=== PATIENT | male | born 1945 | race Caucasian/White ===

== ENCOUNTER 2018-02-12 15:02 | Emergency (ER) | payer MEDICARE, OTHER ==
[~2018-02-12] VITALS: Ht 185.4 cm; Wt 106.6 kg
--- OUTSIDE RECORDS SUMMARY | 2018-02-12 15:08 | XMS REPORT ---
Author Author RICHY LAWRENCE Organization [facility] Address [address] [place] [address] Care Team Providers Care Weaving Machine Operator Name Role Phone RICHY LAWRENCE Unavailable PROBLEMS Type Condition ICD9-CM Code [id number] Code Onset Dates Condition Status SNOMED Code Problem Gout, unspecified 274.9 Active 99216258 Problem Essential hypertension, benign 401.1 Active 2023357 ALLERGIES No Known Allergies ENCOUNTERS Encounter Location Date Diagnosis [facility] [address] [id number] Mar, [facility] [address] [id number] Dec, Periodontitis K05.30 and Oral health maintenance status requiring routine preventive dental care K08.9 [facility] [address] [id number] Dec, Dental examination Z01.20 [facility] [address] [id number] Sep, Dental examination Z01.20 [facility] [address] [id number] Aug, Dental examination Z01.20 [facility] [address] [id number] July, Dental examination Z01.20 [facility] [address] [address] July, [facility] [address] [id number] Apr, Encounter for dental examination Z01.20 [facility] [address] [id number] Dec, Encounter for dental examination Z01.20 [facility] [address] [id number] [id number] Aug, Encounter for dental examination Z01.20 [facility] [address] [id number][place] [id number] Jun, Dental caries K02.9 [facility] [address] [id number][place] [id number] May, Encounter for dental examination Z01.20 [facility] [id number] [place] [address] [id number] Jan, Encounter for dental examination Z01.20 [facility] [address] [id number] [place] [address] [id number] Oct, Encounter for dental examination Z01.20 [facility] [address] [id number][place] [id number] Jun, Encounter for dental examination and cleaning without abnormal findings Z01.20 [facility] [address] [id number][place] [id number] Mar, Dental examination Z01.20 [facility] [id number] [place] [id number] Feb, Encounter for dental examination Z01.20 [facility] [address] [id number][place] [id number] Sep, Dental examination V72.2 [facility] [address] [id number], [place] [address] Jun, [facility] [address] [id number] [place] [address] Jun, [facility] [id number] [place] [phone] Mar, [facility] [address] [id number] [place] [address] 2546 13 Feb, 2012 [facility] [id number] [place] [address] Feb, [facility] [address] [facility] [id number], [place] [address] Dec, [facility] [address] [facility] [id number], [place] [address] Dec, [facility] [address] [id number], [place] [address] Dec, [facility] [id number] [address] 28 Nov, 2011 [facility] [address] [id number], [place] [address] 17 Nov, 2011 [facility] [id number] [address] 14 Nov, 2011 [facility] [address] [id number], [place] [address] Nov, IMMUNIZATIONS No Known Immunizations SOCIAL HISTORY Never Assessed REASON FOR VISIT 4 MO RECALL PLAN OF CARE Activity Details Follow Up 4 Months Reason:Perio Maint VITAL SIGNS Height 72 in 2017-12-26 Blood pressure systolic 123 mmHg 2017-12-26 Blood pressure diastolic 87 mmHg 2017-12-26 MEDICATIONS Medication Instructions Dosage Frequency Start Date End Date Duration Status Metformin & Diet Manage Prod 500 MG Orally 1 500 Active Allopurinol 100 MG Orally Once a day 1 tablet 24h Active Gemfibrozil by Oral route Nov, Active sotalol by Oral route Nov, Active Lisinopril 5 mg 1 tablet by Oral route 1 time per day Nov, Active Lovastatin 20 MG Orally Once a day 1 tablet with a meal 24h Not- Taking Atorvastatin Calcium 40 MG Orally Once a day 1 tablet 24h Active Meloxicam 15 MG Orally Once a day 1 tablet 24h Active Cyclobenzaprine-Diet Manage Pr 10 MG Active Psyllium 33 % Active Fish Oil by Oral route Nov, Active RESULTS No Results PROCEDURES Procedure Date Ordered Result Body Site Periodontal maint procedures Dec 26, 2017 TOPICAL FLUORIDE VARNISH Dec 26, 2017 INSTRUCTIONS MEDICATIONS ADMINISTERED No Known Medications MEDICAL (GENERAL) HISTORY Type Description Date Medical History High Blood Pressure Medical History Heart Disease Medical History Cardiac Pacemaker Medical History Diabetes Type II Medical History Left ARm/leg Pins and screws Medical History Hepititis C 1969 Medical History Arthiritis Medical History Liver Disease Surgical History Left Arm/Leg screws/pins 1984 Hospitalization History Hospitalization for surgery only
--- OUTSIDE RECORDS SUMMARY | 2018-02-12 15:08 | XMS REPORT | Clinical Summary ---
Author Author [facility] Organization [facility] Address Unknown Phone Unavailable Care Team Providers Care Outpatient Interviewing Clerk Name Role Phone [facility] Allergies No Known Allergies Current Medications Prescription Sig. Disp. Refills Start End Date Status Date predniSONE (DELTASONE) 20 3 po daily for 3 days; 18 tablet 0 11/02/19 Active MG tablet then, 2 po daily for 3 12 days; then 1 po daily for 3 days. hydrocodone-acetaminophen Take 1 tablet by mouth 20 tablet 0 11/02/19 Active (NORCO) 5-325 MG every 6 (six) hours as 12 needed for Pain. Active Problems Not on file Social History Tobacco Use Types Packs/Day Years Used Date Former Smoker Quit: 11/01/1984 Alcohol Use Drinks/Week oz/Week Comments Yes socially Sex Assigned at Date Recorded Not on file Last Filed Vital Signs Vital Sign Reading Time Taken Blood Pressure 172/93 11/02/2011 9:28 PM CDT Pulse 66 11/02/2011 9:28 PM CDT Temperature 36.4 C (97.5 F) 11/02/2011 6:32 PM CDT Respiratory Rate 18 11/02/2011 6:32 PM CDT Oxygen Saturation 99% 11/02/2011 9:28 PM CDT Inhaled Oxygen - - Concentration Weight 109.8 kg (242 lb) 11/02/2011 6:32 PM CDT Height 185.4 cm (6' 1") 11/02/2011 6:32 PM CDT Body Mass Index 31.93 11/02/2011 6:32 PM CDT Plan of Treatment Health Maintenance Due Date Last Done Comments Hepatitis C Screening 1945 DTaP,Tdap,and Td Vaccines 1965 (1 - Tdap) Colon Cancer Screening 02/02/1996 Zoster Recombinant 02/02/1996 Vaccine (RZV,Shingrix) (1 of 2 - [facility] 2 Dose Standard) Pneumo-Adult (1 of 2 - 2011 PCV13) Influenza Vaccine (#1) 2017 Results Not on filefrom Last 3 Months
--- OUTSIDE RECORDS SUMMARY | 2018-02-12 15:08 | XMS REPORT | Clinical Summary ---
Author Author [facility] Organization [facility] Address Unknown Phone Unavailable Care Team Providers Care Silviculture Teacher Name Role Phone Dpt Gray Gorman PCP Christina Staples MD [address] Catrina Harris RN Unavailable Unavailable Source Comments Some departments are not documenting in the electronic medical record. If you do not see the information that you expected, contact Release of Information in the Health Information Management department at [phone] for further assistance in locating additional records.[facility] Allergies No Known Allergies Medications End Date Status Medication Sig Dispensed Refills Start Date Active sotalol (BETAPACE) 80 mg Take 0.5 Tabs 0 PO tablet by mouth Twice Daily. Active gemfibrozil (LOPID) 600 Take 0.5 Tabs 0 mg PO tablet by mouth Twice Daily. Active lovastatin(+) (MEVACOR) Take 0.5 mg 0 40 mg PO tablet by mouth At Bedtime Daily. Active DOCOSAHEXANOIC ACID/EPA Take 3 Tabs 0 (FISH OIL PO) by mouth Twice Daily. Active vitamins, multiple PO Cap Take 1 Cap by 0 mouth Daily. Active oxycodone/acetaminophen Take 1-2 Tabs 20 Tab 0 (PERCOCET) 5/325 mg PO by mouth 0 tabletIndications: VT Every 4-6 (ventricular tachycardia) Hours as (HCC), Arrhythmogenic needed for right ventricular Pain. dysplasia (HCC), Ventricular tachycardia (HCC), Dyspnea, Hyperlipidemia, Hepatitis, Diabetic Active allopurinol (ZYLOPRIM) Take 100 mg 0 100 mg tablet by mouth daily. Active lisinopril (PRINIVIL; Take 10 mg by 0 ZESTRIL) 10 mg tablet mouth daily. Active HYDROcodone/acetaminophen Take 1-2 Tabs 30 Tab 0 (NORCO; VICODIN) 5-325 mg by mouth 3 tablet every 6 hours as needed for Pain. Active Problems Problem Noted Date ICD (implantable cardiac defibrillator) battery depletion 11/28/2012 ICD (implantable cardiac defibrillator) lead failure 11/28/2012 Biventricular implantable cardiac defibrillator in situ 11/19/2012 Overview: 11/28/12 Generator Change and Lead Revision w/STRATEGIC ACCOUNT DIRECTOR: MDT SENIOR WRITER-D MIRIAM [id number] S SENIOR WRITER-D; LV Lead 4194-88cm (old LV Lead capped) L ast Assessment & Plan: He has reached ARIELLE. In looking at his programming, I suspect his elevated RV thresholds are contributing to his early battery drain. I have discussed things with the patient and his . I have recommended we extract and reimplant the RV ICD lead at the time of generator change. He has a history of ARVD which is probably contributing to his decreased sensing and increased pacing thresholds. We talked about the risks and benefits of generator change and ICD lead extraction with reimplantation. He has agreed to proceed. 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 He refused defibrillator at that time. Last echocardiogram showed progressive dilatation of his RV and worsening function. In addition, he has significant sinus node dysfunction. We talked at length about ARVD and its consequences. He has one family member who has of ARVD. He has a personal history of VT. He is a candidate for defibrillator implantation. His symptoms of heart failure with significant QRS widening would suggest that he may benefit from biventricular pacing. However, his LV ejection fraction remains within normal limits. This is not a typical patient for biventricular pacing although I think it will benefit him. I reviewed the procedure with the patient. We discussed risks, benefits, and alternatives to therapy. The rationale for ICD implantation was reviewed and I did share with the patient the approximately 40% risk of malignant ventricular arrhythmias in 5 years. We discussed the 1:1000 risk of stroke, heart attack, and . Additionally, we discussed the small risk of pneumothorax, cardiac perforation, infection, and bleeding. We also talked about the rationale for defibrillation testing at the conclusion of the procedure. Post device care and limitations were reviewed. All questions were answered and the patient agreed to proceed. We will plan on using tined leads given his known RV wall thinning. Dyspnea 12/01/2009 Last Assessment & Plan: The patient has significant dyspnea on exertion. He cannot walk up a flight of stairs without stopping to rest. He denies PND, orthopnea, or lower extremity edema. His echo showed normal LV function but severely decreased RV function. He is a candidate for dual chamber defibrillator implantation at this time. Ventricular tachycardia 11/15/2009 Overview: Sust[facility] . [facility]erred to [facility] evaluation -Diagnosed with ARVD -Placed on Sotalol 80 bid -ICD not placed due to patient refusal? Records unavailable L ast Assessment & Plan: He has not had any ventricular arrhythmias recently. We will continue current therapy. Hyperlipidemia VT (ventricular tachycardia) Hepatitis DM (diabetes mellitus) Overview: borderline diabetic no meds Immunizations Name Dates Previously Given Next Due Flu Vaccine Trivalent=>3 11/28/2012 Yo (Preservative Free) Family History Medical History Relation Name Comments Heart Attack Father 27 Cancer Mother High Cholesterol Mother Relation Name Status Comments Father 27 Mother Alive Social History Date Tobacco Use Types Packs/Day Years Used Former Smoker Cigarettes Comments: quit 25 years ago Alcohol Use Drinks/Week oz/Week Comments Yes 2-3 beers weekly Sex Assigned at Date Recorded Not on file Industry Job Start Date Occupation Not on file Not on file Not on file Travel End Travel History Travel Start No recent travel history available. Last Filed Vital Signs Time Taken Vital Sign Reading 11/29/2012 6:00 AM CDT Blood Pressure 126/89 11/28/2012 11:00 PM CDT Pulse 60 11/29/2012 6:00 AM CDT Temperature 36.6 C (97.9 F) - Respiratory Rate - 11/29/2012 6:00 AM CDT Oxygen Saturation 94% - Inhaled Oxygen - Concentration 11/28/2012 6:41 AM CDT Weight 108.5 kg (239 lb 3.2 oz) 11/28/2012 6:41 AM CDT Height 185.4 cm (6' 1") 11/28/2012 6:41 AM CDT Body Mass Index 31.56 Plan of Treatment Health Maintenance Due Date Last Done Comments HEPATITIS C SCREENING 1945 PHYSICAL (COMPREHENSIVE) 1953 EXAM DILATED EYE EXAM 02/02/1964 DTAP/TDAP VACCINES (1 - 02/02/1964 Tdap) FOOT EXAM 02/02/1964 HBA1C 02/02/1964 MICROALBUMIN 02/02/1964 COLORECTAL CANCER 02/02/1996 SCREENING SHINGLES RECOMBINANT 02/02/1996 VACCINE (1 of 2) ABDOMINAL AORTIC ANEURYSM 2011 SCREENING PNEUMONIA (PCV13/PPSV23) 2011 VACCINES (1 of 2 - PCV13) INFLUENZA VACCINE 10/02/2017 11/28/2012 Implants Device Identifier Shelf Expiration Date Model / Serial / Lot Implanted Type Area Manufactur er Icd ICD Results Not on filefrom Last 3 Months Insurance Payer Benefit Subscriber ID Type Phone Address Plan / Group [facility] FFS xxxxxxxxx Medicare Advance Directives Patient has advance care planning documents, and code status on file. For more information, please contact: [facility] [address] [place] [address] Date Inactivated Comments Code Status Date Activated 11/29/2012 11:30 AM Full Code 11/28/2012 6:27 AM Provider has discussed Code Status No, more discussion w/Patient or Family? needed
--- OUTSIDE RECORDS SUMMARY | 2018-02-12 15:09 | XMS REPORT ---
Author Author JEFFERY VALERIO [facility] Address [address] [place] [address] Phone Unavailable Care Team Providers Care Cargoman Name Role Phone JEFFERY VALERIO Unavailable Unavailable PROBLEMS Type Condition ICD9-CM Code [id number] Code Onset Dates Condition Status SNOMED Code Problem Gout, unspecified 274.9 Active 18674834 Problem Essential hypertension, benign 401.1 Active 0838209 ALLERGIES No Known Allergies ENCOUNTERS Encounter Location Date Diagnosis [facility] [address] [id number] Dec, [facility] [address] [id number] Sep, Dental examination Z01.20 [facility] [id number] [place] [id number] Aug, Dental examination Z01.20 [facility] [address] [id number] July, Dental examination Z01.20 [facility] [id number] [place] [phone] July, [facility] [id number] [place] [address] [id number] Apr, Encounter for dental examination Z01.20 [facility] [id number] [place] [address] [id number] Dec, Encounter for dental examination Z01.20 [facility] [address] [id number] Aug, Encounter for dental examination Z01.20 [facility] [id number] [place] [address] [id number] Jun, Dental caries K02.9 [facility] [address] [phone] May, Encounter for dental examination Z01.20 [facility] [address] [id number][place] [phone] Jan, Encounter for dental examination Z01.20 [facility] [address] [id number] [place] [address] [id number] Oct, Encounter for dental examination Z01.20 [facility] [address] [id number] [place] [address] [id number] Jun, Encounter for dental examination and cleaning without abnormal findings Z01.20 [facility] [address] [id number] [place] [address] [id number] Mar, Dental examination Z01.20 [facility] [address] [id number] [place] [address] [id number] Feb, Encounter for dental examination Z01.20 [facility] [address] [id number] [place] [address] [id number] Sep, Dental examination V72.2 [facility] [address] [id number] [place] [address] [phone] Jun, [facility] [address] [id number] [place] [address] [phone] Jun, [facility] [address] [id number] [place] [address] [phone] Mar, [facility] [address] [id number][place] [address] Feb, [facility] [address] [id number] [place] [address] [phone]- [phone] Feb, [facility] [address] [id number] [place] [address] [phone] Dec, [facility] [address] [id number] [place] [address] 90[address]- [address] Dec, [facility] [address] [id number] [place] [address] [phone] 04 Dec, 2011 [facility] [address] [facility] [id number] [place] [address] 28 Nov, 2011 [facility] [address] [facility] [id number] [place] [address] 17 Nov, 2011 [facility] [address] [facility] [id number] [place] [address] 0[address] 14 Nov, 2011 [facility] [address] [facility] [id number], [place] [address] 13 Nov, 2011 IMMUNIZATIONS No Known Immunizations SOCIAL HISTORY Never Assessed REASON FOR VISIT 4 mo recall PLAN OF CARE Activity Details Follow Up maikel Reason:#9 VITAL SIGNS Blood pressure systolic 127 mmHg 2017-08-16 Blood pressure diastolic 83 mmHg 2017-08-16 MEDICATIONS Medication Instructions Dosage Frequency Start Date End Date Duration Status Allopurinol 100 MG Orally Once a day 1 tablet 24h Active Cyclobenzaprine-Diet Manage Pr 10 MG Active Lovastatin 20 MG Orally Once a day 1 tablet with a meal 24h Not- Taking Fish Oil by Oral route Nov, Active Lisinopril 5 mg 1 tablet by Oral route 1 time per day Nov, Active Gemfibrozil by Oral route Nov, Active Atorvastatin Calcium 40 MG Orally Once a day 1 tablet 24h Active Meloxicam 15 MG Orally Once a day 1 tablet 24h Active Metformin & Diet Manage Prod 500 MG Orally 1 500 Active sotalol by Oral route Nov, Active Psyllium 33 % Active RESULTS No Results PROCEDURES Procedure Date Ordered Result Body Site PERIODIC ORAL EXAMINATION August 16, 2017 BITEWINGS - FOUR FILMS August 16, 2017 TOPICAL FLUORIDE VARNISH August 16, 2017 Periodontal maint procedures August 16, 2017 INSTRUCTIONS MEDICATIONS ADMINISTERED No Known Medications [...]
--- OUTSIDE RECORDS SUMMARY | 2018-02-12 15:09 | XMS REPORT ---
Author Author JEFFERY VALERIO [facility] Address [address] [place] [address] Phone Unavailable Care Team Providers Care Refrigerator Cabinetmaker Name Role Phone JEFFERY VALERIO Unavailable Unavailable PROBLEMS Type Condition ICD9-CM Code [id number] Code Onset Dates Condition Status SNOMED Code Problem Gout, unspecified 274.9 Active 53352880 Problem Essential hypertension, benign 401.1 Active 7856499 ALLERGIES No Information ENCOUNTERS Encounter Location Date Diagnosis [facility] [address] [id number] Mar, [facility] [address] [id number] Dec, Periodontitis K05.30 and Oral health maintenance status requiring routine preventive dental care K08.9 [facility] [address] [place] [address] [phone] Dec, Dental examination Z01.20 [facility] [address] [place] [address] [id number] Sep, Dental examination Z01.20 [facility] [id number] [place] [address] [phone] Aug, Dental examination Z01.20 [facility] [id number] [place] [address] [id number] July, Dental examination Z01.20 [facility] [address] [place] [address] July, [facility] [address] [phone] Apr, Encounter for dental examination Z01.20 [facility] [id number] [place] [address] [phone] Dec, Encounter for dental examination Z01.20 [facility] [address] [id number] [phone] Aug, Encounter for dental examination Z01.20 [facility] [address] [id number] [phone] Jun, Dental caries K02.9 [facility] [address] [id number] [phone] May, Encounter for dental examination Z01.20 [facility] [id number] [place] [address] [phone] Jan, Encounter for dental examination Z01.20 [facility] [id number] [place] [address] [phone] Oct, Encounter for dental examination Z01.20 [facility] [id number] [place] [address] [phone] Jun, Encounter for dental examination and cleaning without abnormal findings Z01.20 [facility] [address] [id number] [phone] Mar, Dental examination Z01.20 [facility] [id number] [place] [address] [phone] Feb, Encounter for dental examination Z01.20 [facility] [id number] [place] [address] [phone] Sep, Dental examination V72.2 [facility] [address] [id number] [address] Jun, [facility] [address] [id number] Jun, [facility] [id number] [place] [phone] Mar, [facility] [address] [id number] [address] Feb, [facility] [address] [id number] [address] Feb, [facility] [address] [facility] [id number], [place] [address] 22 Dec, 2011 [facility] [address] [id number] [address] 22 Dec, 2011 [facility] [address] [facility] [id number], [place] [address] 04 Dec, 2011 [facility] [address] [id number] [address] 28 Nov, 2011 [facility] [address] [id number] [address] 17 Nov, 2011 [facility] [address] [id number] [address] 14 Nov, 2011 [facility] [address] [facility] [id number], [place] [address] 13 Nov, 2011 IMMUNIZATIONS No Known Immunizations SOCIAL HISTORY Never Assessed REASON FOR VISIT 4 MO Recall PLAN OF CARE VITAL SIGNS MEDICATIONS Unknown Medications RESULTS No Results PROCEDURES Procedure Date Ordered Result Body Site Billing Notes on claim Dec 20, 2017 INSTRUCTIONS MEDICATIONS ADMINISTERED No Known Medications [...]
--- OUTSIDE RECORDS SUMMARY | 2018-02-12 15:09 | XMS REPORT ---
Author Author ALEJANDRO BENNETT Organization [employer] Address Unknown Phone Unavailable Care Team Providers Care Brand Manager Name Role Phone ALEJANDRO BENNETT CP Unavailable Allergies, Adverse Reactions, Alerts Substance Reaction Event Type N.K.D.A. Info Not Available Non Drug Allergy Problems Problem Type Condition Code Onset Dates Condition Status Problem Encounter for dental examination and cleaning without abnormal findings Z01.20 Active Problem Gout, unspecified 274.9 Active Problem Encounter for dental examination Z01.20 Active Problem Essential hypertension, benign 401.1 Active Assessment Encounter for dental examination Z01.20 Active Medications Medication Code System Code Instructions Start Date End Date Status Dosage Atorvastatin Calcium [facility] [address]-67 40 MG Orally Once a day 1 tablet Metformin & Diet Manage Prod NDC 0 500 MG Orally 1 500 Psyllium [facility] [address]83[address]-72387 33 % Orally not defined Meloxicam [facility] [address]-60 15 MG Orally Once a day 1 tablet Lisinopril [facility] [address]-08 5 mg Nov 15, 2011 1 tablet by Oral route 1 time per day Fish Oil [facility] [address]-62 Nov 15, 2011 by Oral route sotalol NDC 0 Nov 15, 2011 by Oral route Allopurinol [facility] [address]-55 100 MG Orally Once a day 1 tablet Cyclobenzaprine-Diet Manage Pr NDC 0 10 MG Orally not defined Procedures Procedure Coding System Code Date TOPICAL FLUORIDE VARNISH CPT-4 D1206 Oct 07, 2015 Periodontal maint procedures CPT-4 D4910 Oct 07, 2015 Vital Signs Date/Time: Oct 07, 2015 Blood Pressure Diastolic 108 mmHg Blood Pressure Systolic 157 mmHg Results No Known Results Summary Purpose [employer] Submission
--- OUTSIDE RECORDS SUMMARY | 2018-02-12 15:09 | XMS REPORT ---
Author Author RICHY LAWRENCE [employer] Address Unknown Phone Unavailable Care Team Providers Care Big 6 Dealer Name Role Phone RICHY LAWRENCE CP Unavailable Allergies, Adverse Reactions, Alerts Substance [...] Date End Date Status Dosage Atorvastatin Calcium [facility] [address]-84 40 MG Orally Once a day 1 tablet Meloxicam [facility] [address]-81 15 MG Orally Once a day 1 tablet Metformin & Diet Manage Prod NDC 0 500 MG Orally 1 500 Allopurinol [facility] [address]-89 100 MG Orally Once a day 1 tablet Psyllium [facility] [address]-77[address] 33 % Orally not defined Lisinopril [facility] [address]-14 5 mg Nov 15, 2011 1 tablet by Oral route 1 time per day Fish Oil [facility] [address]-16 Nov 15, 2011 by Oral route sotalol NDC 0 Nov 15, 2011 by Oral route Cyclobenzaprine-Diet Manage Pr NDC 0 10 MG Orally not defined Procedures Procedure Coding System Code Date TOPICAL FLUORIDE VARNISH CPT-4 D1206 Jan 09, 2016 Periodontal maint procedures CPT-4 D4910 Jan 09, 2016 Vital Signs Date/Time: Jan 09, 2016 Blood Pressure Diastolic 88 mmHg Blood Pressure Systolic 140 mmHg Cardiac Monitoring Heart Rate 69 bpm Results No Known Results Summary Purpose [employer] Submission
--- OUTSIDE RECORDS SUMMARY | 2018-02-12 15:09 | XMS REPORT ---
Author Author RICHY LAWRENCE Organization [facility] Address [address] [place] [address] Care Team Providers Care Backup Engineer Name Role Phone MELINDARICHY Unavailable PROBLEMS Type Condition ICD9-CM Code [id number] Code Onset Dates Condition Status SNOMED Code Problem Encounter for dental examination Z01.20 Active 256798962 Problem Encounter for dental examination and cleaning without abnormal findings Z01.20 Active 558038136 Problem Gout, unspecified 274.9 Active 06296333 Problem Essential hypertension, benign 401.1 Active 3075200 ALLERGIES No Known Allergies SOCIAL HISTORY Never Assessed PLAN OF CARE Activity Details Follow Up TRICE Reason:TE #2 VITAL SIGNS Heart Rate 74 bpm 2016-05-08 Blood pressure systolic 122 mmHg 2016-05-08 Blood pressure diastolic 76 mmHg 2016-05-08 MEDICATIONS Medication Instructions Dosage Frequency Start Date End Date Duration Status Cyclobenzaprine-Diet Manage Pr 10 MG Active Atorvastatin Calcium 40 MG Orally Once a day 1 tablet 24h Active Meloxicam 15 MG Orally Once a day 1 tablet 24h Active Lisinopril 5 mg 1 tablet by Oral route 1 time per day Nov, Active Psyllium 33 % Active sotalol by Oral route Nov, Active Metformin & Diet Manage Prod 500 MG Orally 1 500 Active Allopurinol 100 MG Orally Once a day 1 tablet 24h Active Fish Oil by Oral route Nov, Active RESULTS No Results PROCEDURES Procedure Date Ordered Result Body Site PERIODIC ORAL EXAMINATION May 08, 2016 INTRAORL-PERIAPICAL 1 FILM 95446 May 08, 2016 Periodontal maint procedures May 08, 2016 VERTICAL BITEWINGS - 7 TO 8 FILMS May 08, 2016 TOPICAL FLUORIDE VARNISH May 08, 2016 IMMUNIZATIONS No Known Immunizations MEDICAL (GENERAL) HISTORY Type Description Date Medical History High Blood Pressure Medical History Heart Disease Medical History Cardiac Pacemaker Medical History Diabetes Type II Medical History Left ARm/leg Pins and screws Medical History Hepititis C 1969 Medical History Arthiritis Medical History Liver Disease Surgical History Left Arm/Leg screws/pins 1984 Hospitalization History Hospitalization for surgery only
--- OUTSIDE RECORDS SUMMARY | 2018-02-12 15:09 | XMS REPORT ---
Author Author RICHY LAWRENCE [employer] Address Unknown Phone Unavailable Care Team Providers Care Bilingual Receptionist Name Role Phone RIHCY LAWRENCE CP Unavailable Allergies, Adverse Reactions, Alerts Substance Reaction Event Type N.K.D.A. Info Not Available Non Drug Allergy Problems Problem Type Condition Code Onset Dates Condition Status Problem Gout, unspecified 274.9 Active Problem Essential hypertension, benign 401.1 Active Problem Encounter for dental examination Z01.20 Active Assessment Encounter for dental examination Z01.20 Active Medications Medication Code System Code Instructions Start Date End Date Status Dosage Allopurinol [facility] [address]-75 100 MG Orally Once a day [address] [facility] [address]-92 20 MG Orally Once a day 1 tablet with a meal Gemfibrozil [facility] [address]-42 Nov 15, 2011 by Oral route Fish Oil [facility] [address]-03 Nov 15, 2011 by Oral route Lisinopril [facility] [address]-20 5 mg Nov 15, 2011 1 tablet by Oral route 1 time per day Metformin & Diet Manage Prod NDC 0 500 MG Orally not defined sotalol NDC 0 Nov 15, 2011 by Oral route Procedures Procedure Coding System Code Date TOPICAL FLUORIDE VARNISH CPT-4 D1206 2015 Periodontal maint procedures CPT-4 D4910 2015 Vital Signs Date/Time: 2015 Blood Pressure Diastolic 72 mmHg Blood Pressure Systolic 115 mmHg Cardiac Monitoring Heart Rate 64 bpm Results No Known Results Summary Purpose [employer]Clinical[employer] Submission
--- OUTSIDE RECORDS SUMMARY | 2018-02-12 15:09 | XMS REPORT ---
Author Author UNIQUE STARKS [facility] Address Unknown Care Team Providers Care Tripoler Name Role Phone UNIQUE STARKS Unavailable PROBLEMS Type Condition ICD9-CM Code [id number] Code Onset Dates Condition Status SNOMED Code Problem Gout, unspecified 274.9 Active 19105729 Problem Essential hypertension, benign 401.1 Active 1184485 ALLERGIES No Known Allergies ENCOUNTERS Encounter Location Date Diagnosis [facility] [address] [id number] Dec, [facility] [address] [id number] Sep, Dental examination Z01.20 [facility] [id number] [place] [address] [phone] Aug, Dental examination Z01.20 [facility] [address] [id number] July, Dental examination Z01.20 [facility] [address] [address] July, [facility] [id number] [place] [address] [phone] Apr, Encounter for dental examination Z01.20 [facility] [id number] [place] [address] [phone] Dec, Encounter for dental examination Z01.20 [facility] [address] [id number] Aug, Encounter for dental examination Z01.20 [facility] [id number] [place] [address] [phone] Jun, Dental caries K02.9 [facility] [address], [place] [phone] May, Encounter for dental examination Z01.20 [facility] [address] [id number] [phone] Jan, Encounter for dental examination Z01.20 [facility] [address] [id number][place] [phone] Oct, Encounter for dental examination Z01.20 [facility] [id number] [place] [address] [phone] Jun, Encounter for dental examination and cleaning without abnormal findings Z01.20 [facility] [id number] [place] [address] [phone] Mar, Dental examination Z01.20 [facility] [id number] [place] [address] [phone] Feb, Encounter for dental examination Z01.20 [facility] [address] [id number] [phone] Sep, Dental examination V72.2 [facility] [id number] [place] [phone] Jun, [facility] [id number] [place] [address]- [address] Jun, [facility] [address] [id number] [address] Mar, [facility] [address] [facility] [id number], [place] [address] Feb, [facility] [address] [id number], [place] [address] Feb, [facility] [address] [facility] [id number] [place] [address] Dec, [facility] [address] [facility] [id number], [place] [address] Dec, [facility] [id number] [place] [address] Dec, 2011 [facility] [address] [facility] [id number] [place] [address] 28 Nov, 2011 [facility] [address] [facility] [id number], [place] [address] 17 Nov, 2011 [facility] [address] [facility] [id number] [place] [address] 14 Nov, 2011 [facility] [address] [facility] [id number], [place] [address] 13 Nov, 2011 IMMUNIZATIONS No Known Immunizations SOCIAL HISTORY Never Assessed REASON FOR VISIT anabel PLAN OF CARE Activity Details Follow Up prn Reason:pt is waiting on a returned call able #9 replacing crown (from [place]) VITAL SIGNS Height 72 in 2017-07-04 Blood pressure systolic 157 mmHg 2017-07-04 Blood pressure diastolic 103 mmHg 2017-07-04 MEDICATIONS Medication Instructions Dosage Frequency Start Date End Date Duration Status Lovastatin 20 MG Orally Once a day 1 tablet with a meal 24h Not- Taking Gemfibrozil by Oral route Nov, Active Lisinopril 5 mg 1 tablet by Oral route 1 time per day Nov, Active Psyllium 33 % Active Fish Oil by Oral route Nov, Active Allopurinol 100 MG Orally Once a day 1 tablet 24h Active Cyclobenzaprine-Diet Manage Pr 10 MG Active Meloxicam 15 MG Orally Once a day 1 tablet 24h Active Metformin & Diet Manage Prod 500 MG Orally 1 500 Active sotalol by Oral route Nov, Active Atorvastatin Calcium 40 MG Orally Once a day 1 tablet 24h Active RESULTS No Results PROCEDURES Procedure Date Ordered Result Body Site LTD ORAL EVALUATION - PROBLEM FOCUS July 04, 2017 INTRAORL-PERIAPICAL 1 FILM 29074 July 04, 2017 INSTRUCTIONS MEDICATIONS ADMINISTERED No Known Medications [...]
--- OUTSIDE RECORDS SUMMARY | 2018-02-12 15:09 | XMS REPORT ---
Author Author UNIQUE STARKS [facility] Address Unknown Care Team Providers Care Certified Substance Abuse Counselor Name Role Phone UNIQUE STARKS Unavailable PROBLEMS Type Condition ICD9-CM Code [id number] Code Onset Dates Condition Status SNOMED Code Problem Encounter for dental examination Z01.20 Active 554159040 Problem Encounter for dental examination and cleaning without abnormal findings Z01.20 Active 236370545 Problem Gout, unspecified 274.9 Active 41022434 Problem Essential hypertension, benign 401.1 Active 2088760 ALLERGIES No Known Allergies SOCIAL HISTORY Never Assessed PLAN OF CARE Activity Details Follow Up prn Reason:GREG VITAL SIGNS Blood pressure systolic 148 mmHg 2016-06-20 Blood pressure diastolic 92 mmHg 2016-06-20 MEDICATIONS Medication Instructions Dosage Frequency Start Date End Date Duration Status Lisinopril 5 mg 1 tablet by Oral route 1 time per day Nov, Active Metformin & Diet Manage Prod 500 MG Orally 1 500 Active Allopurinol 100 MG Orally Once a day 1 tablet 24h Active Atorvastatin Calcium 40 MG Orally Once a day 1 tablet 24h Active sotalol by Oral route Nov, Active Fish Oil by Oral route Nov, Active Cyclobenzaprine-Diet Manage Pr 10 MG Active Psyllium 33 % Active Meloxicam 15 MG Orally Once a day 1 tablet 24h Active RESULTS No Results PROCEDURES Procedure Date Ordered Result Body Site EXTRAC ERUPTED TOOTH/EXPOSED ROOT June 20, 2016 IMMUNIZATIONS No Known Immunizations MEDICAL (GENERAL) [...]
--- OUTSIDE RECORDS SUMMARY | 2018-02-12 15:09 | XMS REPORT ---
Author Author UNIQUE STARKS Organization [employer] Address Unknown Phone Unavailable Care Team Providers Care Photovoltaic Installer Name Role Phone UNIQUE STARKS CP Unavailable Allergies, Adverse Reactions, Alerts Substance Reaction Event Type N.K.D.A. Info Not Available Non Drug Allergy Problems Problem Type Condition Code Onset Dates Condition Status Problem Gout, unspecified 274.9 Active Problem Essential hypertension, benign 401.1 Active Problem Encounter for dental examination Z01.20 Active Assessment Dental examination Z01.20 Active Medications Medication Code System Code Instructions Start Date End Date Status Dosage Fish Oil [facility] [address]-92 Nov 15, 2011 by Oral route Lisinopril [facility] [address]-16 5 mg Nov 15, 2011 1 tablet by Oral route 1 time per day Lovastatin [facility] [address]-34 20 MG Orally Once a day 1 tablet with a meal sotalol NDC 0 Nov 15, 2011 by Oral route Allopurinol [facility] [address]-51 100 MG Orally Once a day 1 tablet Gemfibrozil [facility] [address]-73 Nov 15, 2011 by Oral route Metformin & Diet Manage Prod NDC 0 500 MG Orally not defined Procedures Procedure Coding System Code Date INTRAORL-PERIAPICAL 1 FILM 71786 CPT-4 D0220 Mar 14, 2015 BITEWING - SINGLE FILM CPT-4 D0270 Mar 14, 2015 LTD ORAL EVALUATION - PROBLEM FOCUS CPT-4 D0140 Mar 14, 2015 Vital Signs Date/Time: Mar 14, 2015 Blood Pressure Diastolic 95 mmHg Blood Pressure Systolic 159 mmHg Results No Known Results Summary Purpose eClinicalWorks Submission
--- OUTSIDE RECORDS SUMMARY | 2018-02-12 15:09 | XMS REPORT ---
Author Author UNIQUE STARKS [facility] Address Unknown Care Team Providers Care Glass Driller Name Role Phone UNIQUE STARKS Unavailable PROBLEMS Type Condition ICD9-CM Code [id number] Code Onset Dates Condition Status SNOMED Code Problem Gout, unspecified 274.9 Active 28370197 Problem Essential hypertension, benign 401.1 Active 8123052 ALLERGIES No Known Allergies ENCOUNTERS Encounter Location Date Diagnosis [facility] [address] [phone] Dec, [facility] [address] [id number] Sep, Dental examination Z01.20 [facility] [id number] [place] [phone] Aug, Dental examination Z01.20 [facility] [address] [id number] July, Dental examination Z01.20 [facility] [address] [phone] July, [facility] [id number] [place] [phone] Apr, Encounter for dental examination Z01.20 [facility] [id number] [place] [phone] Dec, Encounter for dental examination Z01.20 [facility] [address] [id number] Aug, Encounter for dental examination Z01.20 [facility] [id number] [place] [phone] Jun, Dental caries K02.9 [facility] [address] [phone] May, Encounter for dental examination Z01.20 [facility] [address] [id number] [place] [phone] Jan, Encounter for dental examination Z01.20 [facility] [address] [id number] [place] [phone] Oct, Encounter for dental examination Z01.20 [facility] [id number] [place] [phone] Jun, Encounter for dental examination and cleaning without abnormal findings Z01.20 [facility] [address] [id number] [place] [phone] Mar, Dental examination Z01.20 [facility] [address] [id number] [place] [phone] Feb, Encounter for dental examination Z01.20 [facility] [address] [id number] [place] [phone] Sep, Dental examination V72.2 [facility] [id number] [place] [phone] Jun, [facility] [id number] [place] [phone] Jun, [facility] [address] [id number] [place] [address] Mar, [facility] [address] [facility] [id number] [place] [address] Feb, [facility] [address] [id number] [place] [address] Feb, [facility] [address] [facility] [id number] [place] [phone] Dec, [facility] [address] [facility] [id number] [place] [address] Dec, [facility] [id number] [place] [id number] 04 Dec, 2011 [facility] [address] [facility] [id number] [place] [address] Nov, 2011 [facility] [address] [facility] [id number] [place] [address] 17 Nov, 2011 [facility] [address] [facility] [id number] [place] [address] 14 Nov, 2011 [facility] [address] [facility] [id number] [place] [address] Nov, 2011 IMMUNIZATIONS No Known Immunizations SOCIAL HISTORY Never Assessed REASON FOR VISIT Restorative PLAN OF CARE Activity Details Follow Up prn Reason:6 mth. Recall VITAL SIGNS Height 72 in 2017-09-25 Blood pressure systolic 120 mmHg 2017-09-25 Blood pressure diastolic 75 mmHg 2017-09-25 MEDICATIONS Medication Instructions Dosage Frequency Start Date End Date Duration Status sotalol by Oral route Nov, Active Fish Oil by Oral route Nov, Active Lisinopril 5 mg 1 tablet by Oral route 1 time per day Nov, Active Atorvastatin Calcium 40 MG Orally Once a day 1 tablet 24h Active Psyllium 33 % Active Allopurinol 100 MG Orally Once a day 1 tablet 24h Active Cyclobenzaprine-Diet Manage Pr 10 MG Active Lovastatin 20 MG Orally Once a day 1 tablet with a meal 24h Not- Taking Metformin & Diet Manage Prod 500 MG Orally 1 500 Active Meloxicam 15 MG Orally Once a day 1 tablet 24h Active Gemfibrozil by Oral route Nov, Active RESULTS No Results PROCEDURES Procedure Date Ordered Result Body Site CROWN REPAIR BY REPORT September 25, 2017 INSTRUCTIONS MEDICATIONS ADMINISTERED No Known Medications [...]
--- OUTSIDE RECORDS SUMMARY | 2018-02-12 15:10 | XMS REPORT | Continuity of Care Document ---
Demographics Preferred Language Unknown Marital Status Unknown Zoroastrianism Affiliation Unknown Race Unknown Ethnic Group Unknown Author Author Replaced By [facility] Address Unknown Phone Unavailable Allergies There is no data. Medications There is no data. Problems Date Dx Coded Attending Type Code Diagnosis Diagnosed By 11/15/2011 274.9 GOUT UNSPECIFIED 11/15/2011 401.1 HYPERTENSION, BENIGN ESSENTIAL 11/15/2011 274.9 GOUT UNSPECIFIED 11/15/2011 401.1 HYPERTENSION, BENIGN ESSENTIAL 10/06/2014 KATIE MAYER MD Ot 250.00 10/06/2014 KATIE MAYER MD Ot 401.9 10/06/2014 KATIE MAYER MD Ot 427.1 10/06/2014 KATIE MAYER MD Ot V45.02 07/11/2015 KATIE MAYER MD Ot 250.00 DIAB LISA WO COMPL, TYPE II OR UNSPEC TY 07/11/2015 KATIE MAYER MD Ot 401.9 HYPERTENSION NOS 07/11/2015 KATIE MAYER MD Ot 427.1 PAROX VENTRIC TACHYCARD 07/11/2015 KATIE MAYER MD Ot V45.02 AUTO IMPLANTABLE CARDIAC DEFIBRILLATOR I 07/11/2015 KATIE MAYER MD Ot 250.00 DIAB LISA WO COMPL, TYPE II OR UNSPEC TY 07/11/2015 KATIE MAYER MD Ot 401.9 HYPERTENSION NOS 07/11/2015 KATIE MAYER MD Ot 427.1 PAROX VENTRIC TACHYCARD 07/11/2015 KATIE MAYER MD Ot V45.02 AUTO IMPLANTABLE CARDIAC DEFIBRILLATOR I 07/11/2015 KATIE MAYER MD Ot 250.00 DIAB LISA WO COMPL, TYPE II OR UNSPEC TY 07/11/2015 KATIE MAYER MD Ot 401.9 HYPERTENSION NOS 07/11/2015 KATIE MAYER MD Ot 427.1 PAROX VENTRIC TACHYCARD 07/11/2015 KATIE MAYER MD Ot V45.02 AUTO IMPLANTABLE CARDIAC DEFIBRILLATOR I Procedures There is no data. Results There is no data. Encounters ACCT No. Visit Date/Time Discharge Status Pt. Type Provider Facility Loc./Unit Complaint [id number] 03/06/2012 11:08:00 03/06/2012 23:59:59 CLS Outpatient [id number] 12/24/2011 12:21:00 12/24/2011 23:59:59 CLS Outpatient [id number] 09/25/2017 09:00:00 09/25/2017 23:59:59 [facility] 10/05/2014 08:58:03 ACT Document Registration [id number] 10/05/2014 08:57:00 10/05/2014 23:59:59 CLS Outpatient KATIE MAYER MD [facility] CARD [id number] 02/12/2018 15:04:00 ACT Emergency IRMA JOHANSEN MD [facility] ER CHEST PAIN
[2018-02-12] MEDS ORDERED: ASPIRIN 81 MG CHEW (CHILDREN'S ASA) PO ONE (15:15)
--- NOTE | 2018-02-12 15:26 | ED Chest Pain ---
General Stated Complaint: CHEST PAIN Source: patient Exam Limitations: no limitations History of Present Illness Date Seen by Provider: Feb 12, 2018 Time Seen by Provider: 15:02 Initial Comments Patient is a 73-year-old male who presents to emergency room with complaints of left-sided chest pain for one week. He reports that he thought the pain was due to heartburn has been taking antacids but has not had any relief. He describes the pain as a burning sensation and rates at 6 out of 10. Denies any shortness of breath, nausea, vomiting, weakness. Does have a pacemaker/defibrillator. Sees the DC for primary care. Timing/Duration: 6-7 days Severity/Quality: burning Location: substernal Radiation: no radiation Prior CP/Workup: cardiac cath ASA po HUMAN RESOURCES OFFICE ASSISTANT: No NTG SL HUMAN RESOURCES OFFICE ASSISTANT: No Associated Symptoms: denies symptoms Allergies and Home Medications Allergies Uncoded Allergies: UNKNOWN CHOLESTEROL MED. (Allergy, Unknown, 02/12/18) Past Cibxfxy-Rdqzew-Rschan Hx Patient Social History Recent Foreign Travel: No Contact w/Someone Who Travel: No Physical Exam Vital Signs Vital Signs - First Documented 02/12/18 15:02 Temp 98.0 Pulse 61 Resp 16 B/P (MAP) 140/84 (102) Pulse Ox 96 O2 Delivery Room Air Capillary Refill : Height, Weight, BMI Height: '" Weight: lbs. oz. kg; BMI Method: Progress/Results/Core Measures Results/Orders Lab Results Laboratory Tests Test 02/12/18 15:20 02/12/18 17:49 Range/Units White Blood Count 5.9 4.3-11.0 10^3/uL Red Blood Count 3.92 L 4.35-5.85 10^6/uL Hemoglobin 13.1 L 13.3-17.7 G/DL Hematocrit 38 L 40-54 % Mean Corpuscular Volume 98 80-99 FL Mean Corpuscular Hemoglobin 33 25-34 PG Mean Corpuscular Hemoglobin Concent 34 32-36 G/DL Red Cell Distribution Width 13.0 10.0-14.5 % Platelet Count 182 130-400 10^3/uL Mean Platelet Volume 10.2 7.4-10.4 FL Neutrophils (%) (Auto) 62 42-75 % Lymphocytes (%) (Auto) 26 12-44 % Monocytes (%) (Auto) 7 0-12 % Eosinophils (%) (Auto) 5 0-10 % Basophils (%) (Auto) 1 0-10 % Neutrophils # (Auto) 3.7 1.8-7.8 X 10^3 Lymphocytes # (Auto) 1.5 1.0-4.0 X 10^3 Monocytes # (Auto) 0.4 0.0-1.0 X 10^3 Eosinophils # (Auto) 0.3 0.0-0.3 10^3/uL Basophils # (Auto) 0.0 0.0-0.1 10^3/uL Prothrombin Time 14.7 12.2-14.7 SEC INR Comment 1.1 0.8-1.4 Activated Partial Thromboplast Time 32 24-35 SEC D-Dimer 0.45 0.00-0.49 UG/ML Sodium Level 139 135-145 MMOL/L Potassium Level 3.7 3.6-5.0 MMOL/L Chloride Level 103 98-107 MMOL/L Carbon Dioxide Level 26 21-32 MMOL/L Anion Gap 10 5-14 MMOL/L Blood Urea Nitrogen 15 7-18 MG/DL Creatinine 1.06 0.60-1.30 MG/DL Estimat Glomerular Filtration Rate > 60 BUN/Creatinine Ratio 14 Glucose Level 184 H 70-105 MG/DL Calcium Level 9.6 8.5-10.1 MG/DL Corrected Calcium 9.5 8.5-10.1 MG/DL Magnesium Level 1.6 L 1.8-2.4 MG/DL Total Bilirubin 0.7 0.1-1.0 MG/DL Aspartate Amino Transf (AST/SGOT) 25 5-34 U/L Alanine Aminotransferase (ALT/SGPT) 27 0-55 U/L Alkaline Phosphatase 68 40-136 U/L Myoglobin 60.4 52.7 10.0-92.0 NG/ML Troponin I < 0.30 < 0.30 <0.30 NG/ML Total Protein 7.6 6.4-8.2 GM/DL Albumin 4.1 3.2-4.5 GM/DL Lipase 42 8-78 U/L My Orders Orders - CIARA LÓPEZ Troponin I (02/12/18 17:35) Myoglobin Serum (02/12/18 17:35) Medications Given in ED Current Medications Medications Dose Ordered Sig/Susan Route Start Time Stop Time Status Last Admin Dose Admin Aspirin 324 mg ONCE ONCE PO 02/12/18 15:15 02/12/18 15:16 DC 02/12/18 15:34 324 MG Nitroglycerin 0.4 mg UD PRN SL 02/12/18 15:15 02/12/18 15:34 0.4 MG Vital Signs/I&O 02/12/18 15:02 Temp 98.0 Pulse 61 Resp 16 B/P (MAP) 140/84 (102) Pulse Ox 96 O2 Delivery Room Air Departure Impression Primary Impression: Chest pain Disposition: HOME, SELF-CARE Condition: Stable/Unchanged Departure-Patient Inst. Decision time for Depature: 18:33 Referrals: Liza BOOTH MD NO,LOCAL PHYSICIAN (PCP) Primary Care Physician Patient Instructions: Chest Pain (DC) Add. Discharge Instructions: Resume your home medications as previously prescribed. Call Dr. Booth first thing tomorrow morning for appointment time next Saturday. Return back to the emergency room for any worsening symptoms, recurrent chest pain, or any other concerns as needed. Follow-up with her primary care provider within the week for recheck. CIARA LÓPEZ Feb 12, 2018 15:25
[2018-02-12 15:30] LABS: BASOPHILS % (AUTO) 1 % (0-10); EOSINOPHILS # (AUTO) 0.3 10^3/uL (0.0-0.3); EOSINOPHILS % (AUTO) 5 % (0-10); HEMATOCRIT 38 % (40-54); HEMOGLOBIN 13.1 G/DL (13.3-17.7); LYMPHOCYTES # (AUTO) 1.5 X 10^3 (1.0-4.0); LYMPHOCYTES % (AUTO) 26 % (12-44); MEAN CORPUSCULAR HEMOGLOBIN 33 PG (25-34); MEAN CORPUSCULAR HGB CONC 34 G/DL (32-36); MEAN CORPUSCULAR VOLUME 98 FL (80-99); MEAN PLATELET VOLUME 10.2 FL (7.4-10.4); MONOCYTES # (AUTO) 0.4 X 10^3 (0.0-1.0); MONOCYTES % (AUTO) 7 % (0-12); NEUTROPHILS # (AUTO) 3.7 X 10^3 (1.8-7.8); NEUTROPHILS % (AUTO) 62 % (42-75); PLATELET COUNT 182 10^3/uL (130-400); RED BLOOD COUNT 3.92 10^6/uL (4.35-5.85); WHITE BLOOD COUNT 5.9 10^3/uL (4.3-11.0)
[2018-02-12] MEDS: NITROGLYCERIN 0.4 MG SL TABS BTL 25'S SL PRN ×2 (15:34→15:43)
[2018-02-12 15:46] LABS: INR 1.1 (0.8-1.4); PROTHROMBIN TIME PATIENT 14.7 SEC (12.2-14.7)
--- NOTE | 2018-02-12 15:50 | Diagnostic Imaging Report ---
PATIENT HISTORY: Chest pain. TECHNIQUE: Single frontal view of the chest. COMPARISON: None. FINDINGS: There is moderate cardiomegaly. Multiple AICD leads are noted. No pleural effusion or pneumothorax is seen. No focal consolidation is seen. IMPRESSION: Moderate cardiomegaly with no acute pulmonary abnormality seen. Dictated by: Dictated on workstation # [id number]
[2018-02-12 15:51] LABS: ALANINE AMINOTRANSFERASE 27 U/L (0-55); ALBUMIN 4.1 GM/DL (3.2-4.5); ALKALINE PHOSPHATASE 68 U/L (40-136); BILIRUBIN,TOTAL 0.7 MG/DL (0.1-1.0); BUN/CREATININE RATIO 14; CALCIUM 9.6 MG/DL (8.5-10.1); CARBON DIOXIDE 26 MMOL/L (21-32); CHLORIDE 103 MMOL/L (98-107); CREATININE SERUM 1.06 MG/DL (0.60-1.30); GFR ESTIMATED > 60; GLUCOSE 184 MG/DL (70-105); LIPASE 42 U/L (8-78); MAGNESIUM 1.6 MG/DL (1.8-2.4); POTASSIUM 3.7 MMOL/L (3.6-5.0); SODIUM 139 MMOL/L (135-145); TOTAL PROTEIN 7.6 GM/DL (6.4-8.2)
[2018-02-12 15:57] LABS: MYOGLOBIN SERUM 60.4 NG/ML (10.0-92.0)
[2018-02-12 18:23] LABS: MYOGLOBIN SERUM 52.7 NG/ML (10.0-92.0)
[2018-02-12 18:55] VITALS: BP 156/106
== END 2018-02-12 18:55 | disposition home or self-care (01) ==
LOC: EDUNIT# 15:02 → ER 15:04
DX: R07.89 Other chest pain (principal); Z95.9 Presence of cardiac and vascular implant and graft, unspecified
CPT/HCPCS: 36415; 71045; 80053; 83690; 83735; 83874; 84484; 85025; 85379; 85610; 85730; 93005; 93041

== ENCOUNTER → 2020-11-03 | Outpatient (CLI) | payer OTHER ==
--- NOTE | 2020-11-03 14:59 | Diagnostic Imaging Report ---
INDICATION: Chest mass. TIME OF EXAM: 2:51 p.m. Comparison is made with prior chest from 02/12/2018. The heart is enlarged but stable. Cardiac defibrillator is in place. Lungs are clear. No infiltrates are seen. There is no evidence of failure. No effusion or pneumothorax is identified. IMPRESSION: Stable chest. No acute feature is detected. Dictated by: Dictated on workstation # [id number]
== END ==
LOC: RAD 14:21
PROVIDERS: ATTEND Surgery
DX: R22.2 Localized swelling, mass and lump, trunk (principal)
CPT/HCPCS: 71046

== ENCOUNTER 2021-05-19 09:35 | Inpatient (IN) | payer OTHER ==
[~2021-05-19] VITALS: Ht 182 cm; Wt 109.7 kg
[2021-05-19 09:55] LABS: BASOPHILS % (AUTO) 0 % (0-10); EOSINOPHILS # (AUTO) 0.1 10^3/uL (0.0-0.3); EOSINOPHILS % (AUTO) 1 % (0-10); HEMATOCRIT 39 % (40-54); LYMPHOCYTES # (AUTO) 1.8 10^3/uL (1.0-4.0); LYMPHOCYTES % (AUTO) 19 % (12-44); MEAN CORPUSCULAR HEMOGLOBIN 34 pg (25-34); MEAN CORPUSCULAR HGB CONC 33 g/dL (32-36); MEAN CORPUSCULAR VOLUME 101 fL (80-99); MEAN PLATELET VOLUME 10.8 fL (9.0-12.2); MONOCYTES # (AUTO) 0.8 10^3/uL (0.0-1.0); MONOCYTES % (AUTO) 9 % (0-12); NEUTROPHILS # (AUTO) 6.8 10^3/uL (1.8-7.8); NEUTROPHILS % (AUTO) 72 % (42-75); PLATELET COUNT 167 10^3/uL (130-400); WHITE BLOOD COUNT 9.5 10^3/uL (4.3-11.0)
[2021-05-19 10:04] LABS: ALBUMIN 3.9 GM/DL (3.2-4.5)
[2021-05-19 10:05] LABS: CALCIUM 9.7 MG/DL (8.5-10.1)
[2021-05-19 10:07] LABS: TOTAL PROTEIN 7.5 GM/DL (6.4-8.2)
--- NOTE | 2021-05-19 10:07 | Diagnostic Imaging Report ---
INDICATION: Chest pain. TIME OF EXAM: 9:55 AM Correlation is made with prior chest from 02/12/2018. FINDINGS: The heart is enlarged, but stable. Cardiac defibrillator is in place. Lungs are clear. No infiltrates are seen. There is no effusion or pneumothorax. IMPRESSION: No acute cardiopulmonary process is detected. Dictated by: Dictated on workstation # [id number]
[2021-05-19 10:08] LABS: BILIRUBIN,TOTAL 1.1 MG/DL (0.1-1.0)
[2021-05-19 10:10] LABS: CREATININE SERUM 2.53 MG/DL (0.60-1.30)
[2021-05-19 10:13] LABS: MAGNESIUM 1.9 MG/DL (1.6-2.4)
[2021-05-19 10:14] LABS: INR 1.2 (0.8-1.4); PROTHROMBIN TIME PATIENT 15.5 SEC (12.2-14.7)
[2021-05-19] MEDS ORDERED: AMIODARONE INJECTION 450 MG in D5W IV SOLUTION (EXCEL) 250 ML IV SCH ×2 (10:15→13:00)
[2021-05-19] MEDS ORDERED: AMIODARONE FOR BOLUS 150 MG in NS (IVPB) 100 ML IV ONE (10:15)
[2021-05-19] MEDS ORDERED: LACTATED RINGERS 1,000 ML IV ONE (10:46)
--- NOTE | 2021-05-19 10:57 | ED Cardiac General ---
History of Present Illness General Chief Complaint: Cardiac/General Problems Stated Complaint: WEAKNESS/FALLS Nursing Triage Note: PT ARRIVED PER EMS, PT CO OF HYPOTENSION, R ANKLE PAIN FROM FALL YESTERAY. PT DENIES C/P HAD INCREASED WEAKNESS, LETHARGY, LOW B/P. PT WAS SEEN [facility]. PT HAS IV NS INFUSING IN R AC #20 BY EMS. PT STATES HAS SOME NAUSE YEST AND TODAY, W SL DIZZINESS. PT STATES MEDS CHANGED YESTERDAY LASIX DC'D AND STARTED HCTZ 25MG. NO MEDS TAKEN TODAY Source: patient, family, other Exam Limitations: no limitations, other (Most of his records are at the [facility] system) History of Present Illness Date Seen by Provider: May 19, 2021 Time Seen by Provider: 09:38 Initial Comments This 76-year-old gentleman presents to the emergency room via EMS with complaints of feeling lightheaded and weak. He denies any chest pain or shortness of breath. He has a known history of arrhythmia and AVRD. He was seen by his grab jack man, Dr. Guzman at the [facility] yesterday. Echocardiogram was performed. On the way home from [place] they stopped in [place] where he became lightheaded and weak. He collapsed in the parking lot. EMS was activated by bystanders but he declined to be evaluated in the hospital. He was not able to get up and get around today, still feeling weak and lightheaded. His then called EMS. Heart rate is noted to be in the 140s with a regular tachycardia upon arrival. Patient denies having any chest pain at any time during the past 24 hours. He does have a pacemaker/defibrillator. It does not appear to have been discharged at any time during this episode. Patient remains alert, oriented, and conversational. Patient injured his right ankle when he fell ye sterday and complains of pain over the right lateral malleolus. He denies any injury to his head or neck. He has no other pain elsewhere. His primary care provider is Pat Hillman at the [facility] [employer] po [employer] MANAGER: No Allergies and Home Medications Allergies Uncoded Allergies: UNKNOWN CHOLESTEROL MED. (Allergy, Unknown, 02/12/18) Patient Home Medication List Home Medication List Reviewed: Yes Acetaminophen (Tylenol Extra Strength) 500 Mg Tablet, 1,000 MG PO Q8H PRN for PAIN-MILD (1-4) OR TEMPATURE, (Reported) Entered as Reported by: GIO CARLOS on 05/19/211547 Last Action: Reviewed Albuterol Sulfate (Proair Hfa) 1 Puff Puff, 2 PUFF IH QID PRN for SHORTNESS OF BREATH, (Reported) Entered as Reported by: GIO CARLOS on 05/19/211547 Last Action: Reviewed Allopurinol (Allopurinol) 100 Mg Tablet, 100 MG PO DAILY, (Reported) Entered as Reported by: GIO CARLOS on 05/19/211547 Last Action: Reviewed Amlodipine Besylate (Amlodipine Besylate) 5 Mg Tablet, 2.5 MG PO 1200, (Reported) Entered as Reported by: GIO CARLOS on 05/19/211547 Last Action: Reviewed Antiox #11/Om3/Dha/Epa/Lut/Salvador (Eye Health Adult 50+ Softgel) 1 Each Capsule, 1 EACH PO BID, (Reported) Entered as Reported by: GIO CARLOS on 05/19/211548 Last Action: Reviewed Ascorbate Calcium (Vitamin C) 500 Mg Tablet, 500 MG PO DAILY, (Reported) Entered as Reported by: GIO CARLOS on 05/19/211547 Last Action: Reviewed Aspirin (Aspirin EC) 81 Mg Tablet.dr, 81 MG PO DAILY, (Reported) Entered as Reported by: GIO CARLOS on 05/19/211547 Last Action: Reviewed Atorvastatin Calcium (Atorvastatin Calcium) 80 Mg Tablet, 40 MG PO HS, (Reported) Entered as Reported by: GIO CARLOS on 05/19/211547 Last Action: Reviewed Cyanocobalamin (Vitamin B-12) (Vitamin B-12) 1,000 Mcg Tablet, 1,000 MCG PO DAILY, (Reported) Entered as Reported by: GIO CARLOS on 05/19/211548 Last Action: Reviewed Cyclobenzaprine HCl (Cyclobenzaprine HCl) 10 Mg Tablet, 10 MG PO HS PRN for MUSCLE SPASMS, (Reported) Entered as Reported by: GIO CARLOS on 05/19/211548 Last Action: Reviewed Hydrochlorothiazide (Hydrochlorothiazide) 25 Mg Tablet, 12.5 MG PO, (Reported) Entered as Reported by: GIO CARLOS on 05/19/211548 Last Action: Reviewed Lisinopril (Lisinopril) 40 Mg Tablet, 40 MG PO DAILY, (Reported) Entered as Reported by: GIO CARLOS on 05/19/211548 Last Action: Reviewed Multivitamin with Minerals (Multivitamins with Minerals) 1 Each Tablet, 1 EACH PO DAILY, (Reported) Entered as Reported by: GIO CARLOS on 05/19/211548 Last Action: Reviewed Sotalol HCl (Sotalol) 80 Mg Tablet, 40 MG PO BID, (Reported) Entered as Reported by: GIO CARLOS on 05/19/211548 Last Action: Reviewed Tamsulosin HCl (Flomax) 0.4 Mg Cap, 0.4 MG PO DAILY, (Reported) Entered as Reported by: GIO CARLOS on 05/19/211548 Last Action: Reviewed Discontinued Medications Sotalol HCl (Betapace) 80 Mg Tablet, 80 MG PO, (Reported) Discontinued Reason: Duplicate Order Entered as Reported by: GIO CARLOS on 05/19/211548 Last Action: Discontinued Review of Systems Review of Systems Constitutional: see HPI EENTM: No Symptoms Reported Respiratory: No Symptoms Reported Cardiovascular: See HPI Gastrointestinal: No Symptoms Reported Genitourinary: No Symptoms Reported Musculoskeletal: no symptoms reported Skin: no symptoms reported, other (Pallor) Psychiatric/Neurological: No Symptoms Reported Endocrine: No Symptoms Reported Hematologic/Lymphatic: No Symptoms Reported Past Gptqfxh-Ruqcjn-Abspfh Hx Patient Social History Tobacco Use?: No Substance use?: No Alcohol Use?: No Pt feels they are or have been: No Immunizations Up To Date First/Initial COVID19 Vaccinat: 2020 Second COVID19 Vaccination Eugenio: 2020 Past Medical History Surgery/Hospitalization HX: CARDIAC HX Surgeries: Yes (PACEMAKER/DEF, ANAL FISTULA, ) Defibrillator, Orthopedic, Pacemaker Respiratory: No Cardiac: Yes (CARDIOMYOPATHY, AVRD) Cardiomyopathy (Arrhythmogenic Right Ventricular Dysplasia), High Cholesterol Neurological: No Genitourinary: No Gastrointestinal: Yes Chronic Constipation Musculoskeletal: Yes Gout Endocrine: Yes Diabetes, Non-Insulin dep Cancer: No Psychosocial: No Integumentary: No Physical Exam Vital Signs Vital Signs - First Documented 05/19/21 09:37 Temp 36.2 Pulse 142 Resp 20 B/P (MAP) 74/45 (55) Pulse Ox 95 O2 Delivery Nasal Cannula O2 Flow Rate 5.00 Capillary Refill : NONE Height, Weight, BMI Height: 6'1.00" Weight: 235lbs. oz. 106.814799xy; 31.00 BMI Method:Stated General Appearance: No Apparent Distress, WD/WN, Other (Appears fatigued) HEENT: PERRL/EOMI, Normal ENT Inspection Neck: Normal Inspection; No JVD Respiratory: Lungs Clear, Normal Breath Sounds, No Accessory Muscle Use Cardiovascular: No Edema, No Murmur, Tachycardia (Regular) Gastrointestinal: Normal Bowel Sounds, Non Tender, Soft Extremity: Normal Inspection, No Pedal Edema, Other (Trace lower extremity edema. Tenderness over the right lateral malleolus.) Neurologic/Psychiatric: Alert, Oriented x3, No Motor/Sensory Deficits, fork operator II- XII Norm as Tested Skin: Normal Color, Warm/Dry, Pallor (Mild) Progress/Results/Core Measures Results/Orders Lab Results Laboratory Tests Test 05/19/21 09:45 Range/Units White Blood Count 9.5 4.3-11.0 10^3/uL Red Blood Count 3.87 L 4.30-5.52 10^6/uL Hemoglobin 13.0 L 13.3-17.7 g/dL Hematocrit 39 L 40-54 % Mean Corpuscular Volume 101 H 80-99 fL Mean Corpuscular Hemoglobin 34 25-34 pg Mean Corpuscular Hemoglobin Concent 33 32-36 g/dL Red Cell Distribution Width 13.8 10.0-14.5 % Platelet Count 167 130-400 10^3/uL Mean Platelet Volume 10.8 9.0-12.2 fL Immature Granulocyte % (Auto) 0 % Neutrophils (%) (Auto) 72 42-75 % Lymphocytes (%) (Auto) 19 12-44 % Monocytes (%) (Auto) 9 0-12 % Eosinophils (%) (Auto) 1 0-10 % Basophils (%) (Auto) 0 0-10 % Neutrophils # (Auto) 6.8 1.8-7.8 10^3/uL Lymphocytes # (Auto) 1.8 1.0-4.0 10^3/uL Monocytes # (Auto) 0.8 0.0-1.0 10^3/uL Eosinophils # (Auto) 0.1 0.0-0.3 10^3/uL Basophils # (Auto) 0.0 0.0-0.1 10^3/uL Immature Granulocyte # (Auto) 0.0 0.0-0.1 10^3/uL Prothrombin Time 15.5 H 12.2-14.7 SEC INR Comment 1.2 0.8-1.4 Activated Partial Thromboplast Time 32 24-35 SEC Sodium Level 137 135-145 MMOL/L Potassium Level 4.0 3.6-5.0 MMOL/L Chloride Level 102 98-107 MMOL/L Carbon Dioxide Level 17 L 21-32 MMOL/L Anion Gap 18 H 5-14 MMOL/L Blood Urea Nitrogen 38 H 7-18 MG/DL Creatinine 2.53 H 0.60-1.30 MG/DL Estimat Glomerular Filtration Rate 26 BUN/Creatinine Ratio 15 Glucose Level 148 H 70-105 MG/DL Calcium Level 9.7 8.5-10.1 MG/DL Corrected Calcium 9.8 8.5-10.1 MG/DL Magnesium Level 1.9 1.6-2.4 MG/DL Total Bilirubin 1.1 H 0.1-1.0 MG/DL Aspartate Amino Transf (AST/SGOT) 69 H 5-34 U/L Alanine Aminotransferase (ALT/SGPT) 47 0-55 U/L Alkaline Phosphatase 96 40-136 U/L Myoglobin 469.0 H 10.0-92.0 NG/ML Troponin I 6.238 *H <0.028 NG/ML Total Protein 7.5 6.4-8.2 GM/DL Albumin 3.9 3.2-4.5 GM/DL My Orders Orders - DENA LINDA MD Cbc With Automated Diff (05/19/21 09:39) Comprehensive Metabolic Panel (05/19/21 09:39) Ua Culture If Indicated (05/19/21 09:39) Ed Iv/Invasive Line Start (05/19/21 09:39) Ekg Tracing (05/19/21 09:40) Monitor-Rhythm Ecg Trace Only (05/19/21 09:40) Magnesium (05/19/21 09:40) Chest 1 View, Ap/Pa Only (05/19/21 09:51) Myoglobin Serum (05/19/21 09:51) Protime With Inr (05/19/21 09:51) Partial Thromboplastin Time (05/19/21 09:51) O2 (05/19/21 09:51) Lipid Panel (05/20/21 06:00) Troponin I Shimon (05/19/21 09:51) Amiodarone Injection (Cordarone Injectio (05/19/21 10:15) Amiodarone For Bolus (Cordarone Bolus) (05/19/21 10:15) Ankle, Right, 3 Views (05/19/21 10:43) Medications Given in ED Current Medications Medications Dose Ordered Sig/Susan Route Start Time Stop Time Status Last Admin Dose Admin Amiodarone HCl 150 mg/Sodium Chloride 103 ml @ 600 mls/hr ONCE ONCE IV 05/19/21 10:15 05/19/21 10:25 DC 05/19/21 10:18 600 MLS/HR Lactated Ringer's 1,000 ml @ ud STK-MED ONCE IV 05/19/21 10:46 05/19/21 10:49 DC 05/19/21 10:50 999 MLS/HR Vital Signs/I&O 05/19/21 05/19/21 05/19/21 05/19/21 09:37 09:37 10:18 10:32 Temp 36.2 Pulse 142 153 144 Resp 20 B/P (MAP) 74/45 (55) 75/49 80/40 Pulse Ox 95 95 O2 Delivery Nasal Cannula O2 Flow Rate 5.00 Blood Pressure Mean: 58 Progress Progress Note #1: Time: 10:57 Progress Note EKG revealed a slow ventricular tachycardia with a heart rate in the 140s. Pacer was interrogated and [employer] called to report confirmation of the slow SVT. His defibrillator is set at rate of 158. He has not exceeded the threshold yet and therefore has not received a discharge. I reviewed the situation with Dr. Farrar who presented to the ER to evaluate the patient. He recommends chemically treating with amiodarone bolus and drip. If this is not effective, defibrillation may be necessary. The local [employer] contact is [phone] should any adjustments be needed to the device. Patient has remained alert and oriented. He denies any chest pain. Creatinine and troponin are both elevated. He has received 1 L of normal saline and a liter of LR is now infusing. He has had several systolic blood pressures in the 70s and 80s but remains alert despite that. Progress Note #2: Time: 14:11 Progress Note There was a right distal fibula fracture noted on x-ray. supervisor intermediates was notified and will provide a boot. Dr. Carrasquillo was updated. Rhythm had not yet converted from sustained ventricular tachycardia at the time of admission. Plan was for him to be electrocardioverted in the ICU. Patient remained alert and not in distress during his ER stay. Initial ECG Impression Date: May 19, 2021 Initial ECG Impression Time: 09:42 Initial ECG Rate: 138 Comment Ventricular tachycardia with a heart rate approximately 140. Diagnostic Imaging Diagonstic Imaging: Xray Plain Films/CT/US/NM/MRI: chest Comments NAME: VIPIN ASHTON [facility] REC#: [id number] PT STATUS: REG ER : 1945 PHYSICIAN: DENA LINDA MD ADMIT DATE: 05/19/21/ER Draft Date of Exam:05/19/21 CHEST 1 VIEW, AP/PA ONLY INDICATION: Chest pain. TIME OF EXAM: 9:55 AM Correlation is made with prior chest from 02/12/2018. FINDINGS: The heart is enlarged, but stable. Cardiac defibrillator is in place. Lungs are clear. No infiltrates are seen. There is no effusion or pneumothorax. IMPRESSION: No acute cardiopulmonary process is detected. Dictated on workstation # [id number] Dict: 05/19/21 1005 Trans: 05/19/21 1006 [id number] Interpreted by: SHREYA ÁLVAREZ MD Diagonstic Imaging: Xray Plain Films/CT/US/NM/MRI: ankle Comments NAME: VIPIN ASHTON [facility] REC#: [id number] PT STATUS: ADM IN : 1945 PHYSICIAN: DENA LINDA MD ADMIT DATE: 05/19/21/ICU Draft Date of Exam:05/19/21 ANKLE, RIGHT, 3 VIEWS INDICATION: Fall yesterday with ankle pain. FINDINGS: There is a subtle nondisplaced spiral configured fracture of the distal fibula. Overlying soft tissue swelling is present. Radiographically, the bones appear of diminished density. IMPRESSION: Nondisplaced distal fibular fracture with overlying soft tissue swelling. Suspect underlying osteopenia. Dictated on workstation # [id number] Dict: 05/19/21 1111 Trans: 05/19/21 1113 [id number] Interpreted by: CARMITA HILLIARD Departure Communication (Admissions) Time/Spoke to Admitting Phy: 10:43 Dr Carrasquillo Time/Spoke to Consulting Phy: 09:53 Dr. Farrar Impression Primary Impression: Ventricular tachycardia Additional Impressions: Arrhythmogenic right ventricular dysplasia Acute kidney injury Elevated troponin Closed right ankle fracture Qualified Codes: S82.891A - Other fracture of right lower leg, initial encounter for closed fracture Disposition: ADMITTED INPATIENT Condition: Stable Admissions Decision to Admit Reason: Admit from ER (General) Decision to Admit/Date: May 19, 2021 Time/Decision to Admit Time: 09:53 Departure-Patient Inst. Referrals: NO,LOCAL PHYSICIAN (PCP/Family) Primary Care Physician DENA LINDA MD May 19, 2021 10:57
--- NOTE | 2021-05-19 11:14 | Diagnostic Imaging Report ---
INDICATION: Fall yesterday with ankle pain. FINDINGS: There is a subtle nondisplaced spiral configured fracture of the distal fibula. Overlying soft tissue swelling is present. Radiographically, the bones appear of diminished density. IMPRESSION: Nondisplaced distal fibular fracture with overlying soft tissue swelling. Suspect underlying osteopenia. Dictated by: Dictated on workstation # [id number]
[2021-05-19] MEDS ORDERED: LIDOCAINE UROJET 2% GEL 10 ML PKG ONE (11:53)
[2021-05-19] MEDS ORDERED: MIDAZOLAM 2 MG/2 ML (VERSED) VIAL ONE (12:20)
--- NOTE | 2021-05-19 12:30 | Consultation-Cardiology ---
HPI-Cardiology Cardiology Consultation: Date of Consultation 05/19/21 Date of Admission 05/19/2021 Attending Physician Monserrat Carrasquillo MD Admitting Physician No,Local Physician Consulting Physician JOSEFINA JUNE JR, MD HPI: Time Seen by a Provider: 10:00 Chief Complaint: Reason for consultation: Ventricular tachycardia. I had the pleasure of seeing Truman in the emergency room and later on in the intensive care unit at [facility] in [place], [place] this morning. He has a history of arrhythmogenic right ventricular dysplasia (AVRD). He normally follows with a commercial credit reviewer at the [facility] in [place]. He was actually they are yesterday for a routine follow-up visit. He underwent an ech ocardiogram but the results are not yet available. Then when he was driving home to [place], he became very lightheaded and has what sounds like was a syncopal spell. At the time, he was in [place], [place]. He refused to go to the emergency room. He continued on his way home and this morning has been feeling extremely lightheaded and short of breath. Because of the lightheadedness and shortness of breath, he came to the emergency room for further evaluation. He was found to be in sustained ventricular tachycardia and a cardiology consultation was requested. He has chronic, intermittent mild ankle edema which has been unchanged. He denies any previous discharges from his implantable defibrillator. He denies chest pain, paroxysmal nocturnal dyspnea, or orthopnea. Certain portions of this document may have been dictated utilizing voice recognition technology. Inherent to this technology, typographical and grammatical errors may exist. As much as I am diligent to identify and correct these mistakes, some errors may remain in the document. Review of Systems-Cardiology Review of Systems Other comments Review of 10 organ systems is as per the history of present illness, otherwise negative. LHT-Dzwvsu-Uwpcsa Hx Patient Social History Marrital Status: Smoking Status: Former Smoker Have you traveled recently?: No Alcohol Use?: No Pt feels they are or have been: No Past Medical History PMH As described under Assessment. Family Medical History Family Medical History: His father also had arrhythmogenic right ventricular dysplasia. Allergies and Home Medications Allergies Uncoded Allergies: UNKNOWN CHOLESTEROL MED. (Allergy, Unknown, 02/12/18) Patient Home Medication List Home Medication List Reviewed: Yes Acetaminophen (Tylenol Extra Strength) 500 Mg Tablet, 1,000 MG PO Q8H PRN for PAIN-MILD (1-4) OR TEMPATURE, (Reported) Entered as Reported by: GIO CARLOS on 05/19/211547 Last Action: Reviewed Albuterol Sulfate (Proair Hfa) 1 Puff Puff, 2 PUFF IH QID PRN for SHORTNESS OF BREATH, (Reported) Entered as Reported by: GIO CARLOS on 05/19/211547 Last Action: Reviewed Allopurinol (Allopurinol) 100 Mg Tablet, 100 MG PO DAILY, (Reported) Entered as Reported by: GIO CARLOS on 05/19/211547 Last Action: Reviewed Amlodipine Besylate (Amlodipine Besylate) 5 Mg Tablet, 2.5 MG PO 1200, (Reported) Entered as Reported by: GIO CARLOS on 05/19/211547 Last Action: Reviewed Antiox #11/Om3/Dha/Epa/Lut/Salvador (Eye Health Adult 50+ Softgel) 1 Each Capsule, 1 EACH PO BID, (Reported) Entered as Reported by: GIO CARLOS on 05/19/211548 Last Action: Reviewed Ascorbate Calcium (Vitamin C) 500 Mg Tablet, 500 MG PO DAILY, (Reported) Entered as Reported by: GIO CARLOS on 05/19/211547 Last Action: Reviewed Aspirin (Aspirin EC) 81 Mg Tablet.dr, 81 MG PO DAILY, (Reported) Entered as Reported by: GIO CARLOS on 05/19/211547 Last Action: Reviewed Atorvastatin Calcium (Atorvastatin Calcium) 80 Mg Tablet, 40 MG PO HS, (Reported) Entered as Reported by: GIO CARLOS on 05/19/211547 Last Action: Reviewed Cyanocobalamin (Vitamin B-12) (Vitamin B-12) 1,000 Mcg Tablet, 1,000 MCG PO DAILY, (Reported) Entered as Reported by: GIO CARLOS on 05/19/211548 Last Action: Reviewed Cyclobenzaprine HCl (Cyclobenzaprine HCl) 10 Mg Tablet, 10 MG PO HS PRN for MUSCLE SPASMS, (Reported) Entered as Reported by: GIO CARLOS on 05/19/211548 Last Action: Reviewed Hydrochlorothiazide (Hydrochlorothiazide) 25 Mg Tablet, 12.5 MG PO, (Reported) Entered as Reported by: GIO CARLOS on 05/19/211548 Last Action: Reviewed Lisinopril (Lisinopril) 40 Mg Tablet, 40 MG PO DAILY, (Reported) Entered as Reported by: GIO CARLOS on 05/19/211548 Last Action: Reviewed Multivitamin with Minerals (Multivitamins with Minerals) 1 Each Tablet, 1 EACH PO DAILY, (Reported) Entered as Reported by: GIO CARLOS on 05/19/211548 Last Action: Reviewed Sotalol HCl (Sotalol) 80 Mg Tablet, 40 MG PO BID, (Reported) Entered as Reported by: GOI CARLOS on 05/19/211548 Last Action: Reviewed Tamsulosin HCl (Flomax) 0.4 Mg Cap, 0.4 MG PO DAILY, (Reported) Entered as Reported by: GIO CARLOS on 05/19/211548 Last Action: Reviewed Discontinued Medications Sotalol HCl (Betapace) 80 Mg Tablet, 80 MG PO, (Reported) Discontinued Reason: Duplicate Order Entered as Reported by: GIO CARLOS on 05/19/211548 Last Action: Discontinued Exam Vital Signs Vital Signs Date Time Temp Pulse Resp B/P (MAP) Pulse Ox O2 Delivery O2 Flow Rate FiO2 05/19/21 15:59 36.1 05/19/21 15:00 59 19 131/80 91 Nasal Cannula 5.00 Physical Exam General: Alert. No acute distress. Well nourished and appears stated age. He is overweight. Eye: Extraocular movements are intact. Conjunctivae are clear. There are no xanthelasma. HENT: Normocephalic. Atraumatic. Carotid pulsations 2/2 without bruits. Neck: Jugular venous pressure does not appear elevated. No thyromegaly appreciated. Respiratory: Lungs are clear to auscultation. Respirations are non-labored. Breath sounds are equal. Symmetrical chest wall expansion. Cardiovascular: Tachycardia with regular rhythm. No murmur. No gallop. Point of maximal impulse is not appear displaced. Good pulses equal in all extremities. Trace bilateral pretibial edema. Gastrointestinal: Soft. Normal bowel sounds. Skin: Skin turgor is normal. There is no pallor. Musculoskeletal: No kyphosis or scoliosis appreciated. Neurologic: Alert and oriented to person, place, time. Cranial nerves 3-12 appear grossly intact. The patient has good motor tone strength in the upper and lower extremities bilaterally. Psychiatric: Cooperative. Appropriate mood & affect. Labs Laboratory Tests Test 05/19/21 09:45 05/19/21 13:07 Range/Units White Blood Count 9.5 4.3-11.0 10^3/uL Red Blood Count 3.87 L 4.30-5.52 10^6/uL Hemoglobin 13.0 L 13.3-17.7 g/dL Hematocrit 39 L 40-54 % Mean Corpuscular Volume 101 H 80-99 fL Mean Corpuscular Hemoglobin 34 25-34 pg Mean Corpuscular Hemoglobin Concent 33 32-36 g/dL Red Cell Distribution Width 13.8 10.0-14.5 % Platelet Count 167 130-400 10^3/uL Mean Platelet Volume 10.8 9.0-12.2 fL Immature Granulocyte % (Auto) 0 % Neutrophils (%) (Auto) 72 42-75 % Lymphocytes (%) (Auto) 19 12-44 % Monocytes (%) (Auto) 9 0-12 % Eosinophils (%) (Auto) 1 0-10 % Basophils (%) (Auto) 0 0-10 % Neutrophils # (Auto) 6.8 1.8-7.8 10^3/uL Lymphocytes # (Auto) 1.8 1.0-4.0 10^3/uL Monocytes # (Auto) 0.8 0.0-1.0 10^3/uL Eosinophils # (Auto) 0.1 0.0-0.3 10^3/uL Basophils # (Auto) 0.0 0.0-0.1 10^3/uL Immature Granulocyte # (Auto) 0.0 0.0-0.1 10^3/uL Prothrombin Time 15.5 H 12.2-14.7 SEC INR Comment 1.2 0.8-1.4 Activated Partial Thromboplast Time 32 24-35 SEC Sodium Level 137 135-145 MMOL/L Potassium Level 4.0 3.6-5.0 MMOL/L Chloride Level 102 98-107 MMOL/L Carbon Dioxide Level 17 L 21-32 MMOL/L Anion Gap 18 H 5-14 MMOL/L Blood Urea Nitrogen 38 H 7-18 MG/DL Creatinine 2.53 H 2.05 H 0.60-1.30 MG/DL Estimat Glomerular Filtration Rate 26 BUN/Creatinine Ratio 15 Glucose Level 148 H 70-105 MG/DL Calcium Level 9.7 8.5-10.1 MG/DL Corrected Calcium 9.8 8.5-10.1 MG/DL Magnesium Level 1.9 1.6-2.4 MG/DL Total Bilirubin 1.1 H 0.1-1.0 MG/DL Aspartate Amino Transf (AST/SGOT) 69 H 5-34 U/L Alanine Aminotransferase (ALT/SGPT) 47 0-55 U/L Alkaline Phosphatase 96 40-136 U/L Myoglobin 469.0 H 10.0-92.0 NG/ML Troponin I 6.238 *H 7.017 *H <0.028 NG/ML Total Protein 7.5 6.4-8.2 GM/DL Albumin 3.9 3.2-4.5 GM/DL Radiology ECHOCARDIOGRAM (05/19/2021): 1. This is a limited study to assess left ventricular ejection fraction. 2. Left ventricle: The cavity size is normal. Systolic function is normal. The estimated ejection fraction is 50-55%. There is flattening of the interventricular septum consistent with right ventricular pressure and/or volume overload. The left ventricular diastolic function was not determined. 3. Right ventricle: The cavity size is severely increased. Device wire noted in the right ventricle. Systolic function is severely reduced. 4. Aortic valve: There is mild aortic valve sclerosis. 5. Tricuspid valve: There is moderate regurgitation. 6. Pericardium, extracardiac: A trivial pericardial effusion is identified anterior to the heart. 7. Pulmonary arteries: The estimated pulmonary artery systolic pressure is 28 mmHg assuming a right atrial pressure of 5 mmHg. CARDIAC CATHETERIZATION (05/19/2021): 1. Normal left heart pressures. 2. Angiographically normal-appearing coronary arteries in a right dominant system. 3. The patient is known to have normal left ventricular systolic function with an estimated ejection fraction of 50-55% by echocardiogram performed prior to this procedure. ECG Impression ECG Comment Ventricular tachycardia at a heart rate of 138 bpm. Diagnosis/Problems Diagnosis/Problems (1) Ventricular tachycardia Assessment & Plan: He was initially treated with intravenous amiodarone but rem ained in ventricular tachycardia and then developed hypotension. I then performed a cardioversion and he converted to sinus rhythm and his blood pressure improved. I spoke to an heel wheeler at [facility] who recommends the patient continue sotalol 40 mg twice daily unless this needs to be reduced to once daily dosing due to his acute kidney injury. He recommen ds stopping intravenous amiodarone and changing this over to intravenous lidocaine 1 mg/min for 24 hours. Also start mexiletine 150 mg p.o. every 8 hours. His defibrillator will need to be reprogrammed to detect ventricular tachycardia at 138 bpm and program antitachycardia pacing. I will make arrangements with the [employer] device delivery representative for reprogramming. The patient will likely need to stay in the hospital until Saturday to make all of these changes. (2) Arrhythmogenic right ventricular dysplasia Status: Acute Assessment & Plan: He has a known history of arrhythmogenic right ventricular dysplasia. He has a biventricular dual-chamber defibrillator in place. We will proceed as above. (3) Elevated troponin Status: Acute Assessment & Plan: His troponin was quite elevated even prior to the cardioversion. This is concerning for possible non-ST elevation myocardial infarction. However, urgent cardiac catheterization showed angiographically normal-appearing coronary arteries. The troponin elevation is likely a type II non-ST elevation myocardial infarction due to supply/demand mismatch as well as some noncardiac elevation of the troponin due to the acute kidney injury. (4) Primary hypertension Assessment & Plan: Given his hypotension earlier today, I would hold off on resuming his antihypertensive medication until we see how his blood pressure does overnight. (5) Mixed hyperlipidemia Assessment & Plan: Continues atorvastatin. I have reordered his home dose. (6) Acute kidney injury Status: Acute Assessment & Plan: He may need some gentle hydration. We will need to watch his renal function closely. JOSEFINA JUNE JR, MD May 19, 2021 12:30
[2021-05-19] MEDS ORDERED: NS IV 500 ML 500 ML ONE (12:34)
--- NOTE | 2021-05-19 12:42 | Cardiac Procedure Note ---
Cardiology Procedures Date of Procedure 05/19/2021 DIRECT-CURRENT CARDIOVERSION INDICATION: Sustained ventricular tachycardia with hypotension. PROCEDURE: This was an emergency procedure due to the patient's shock in the setting of sustained unstable ventricular tachycardia. The procedure was explained to the patient but due to the emergency nature, signed consent was not obtained. Deep sedation was provided by the anesthesia department. I subsequently performed direct-current cardioversion with 1 synchronized biphasic shock at 150 J with successful conversion of ventricular tachycardia to sinus rhythm. IMPRESSION: 1. Status post successful direct-current cardioversion with 1 synchronized biphasic shock at 150 J with successful cardioversion of sustained unstable ventricular tachycardia to sinus rhythm. Certain portions of this document may have been dictated utilizing voice recognition technology. Inherent to this technology, typographical and grammatical errors may exist. As much as I am diligent to identify and correct these mistakes, some errors may remain in the document. JOSEFINA JUNE JR, MD May 19, 2021 12:42
[2021-05-19] MEDS ORDERED: ONDANSETRON 4 MG/2 ML (SDV) Z0FRAN IV PRN (12:45)
[2021-05-19] MEDS ORDERED: ANTACID SUSP 30 ML UDC (MYLANTA) PO PRN (12:45)
[2021-05-19] MEDS ORDERED: ONDANSETRON 4 MG (ZOFRAN) ORAL DISSOLVE TAB PO PRN (12:45)
[2021-05-19] MEDS ORDERED: proPOfol 200 MG/20 ML (DIPRIVAN) VIAL IV ONE (13:06)
--- NOTE | 2021-05-19 13:13 | Anesthesia-General Post-Op ---
MAC Patient Condition Mental Status/LOC: Same as Preop Cardiovascular: Satisfactory Nausea/Vomiting: Absent Respiratory: Satisfactory Pain: Controlled Complications: Absent Post Op Complications Complications None Follow Up Care/Instructions Patient Instructions None needed. Anesthesiology Discharge Order Discharge Order Patient is doing well, no complaints, stable vital signs, no apparent adverse anesthesia problems. SVITLANA CARUSO DO May 19, 2021 13:13
--- NOTE | 2021-05-19 14:12 | History & Physical ---
ROGERAMILCAR VASQUEZ 05/19/21 1412: History of Present Illness History of Present Illness Reason for visit/HPI Patient is a 76yo male w/PMH of BPH, T2DM, Arrhythmogenic Right Ventricular Dysplasia (he has an ICD) who presented yesterday after an episode of syncope in a parking lot in [place]. He had just seen his ribbon tier there and had an echo that did not reveal anything concerning. He had some nausea and dizziness yesterday prior to the syncopal episode. He injured his right ankle when he passed out. He reports not urinating for the last 2 days. On arrival to [facility] ER he was hypotensive and tachycardic. Amiodarone drip was started but has not converted him back to sinus rhythm. Date of Admission May 19, 2021 at 10:47 Time Seen by a Provider: 11:50 I consulted on this patient on 05/19/21 14:05 Attending Physician Mehki Gifford MD Admitting Physician No,Local Physician Consult Allergies and Home Medications Allergies Uncoded Allergies: UNKNOWN CHOLESTEROL MED. (Allergy, Unknown, 02/12/18) Patient Home Medication List Acetaminophen (Tylenol Extra Strength) 500 Mg Tablet, 1,000 MG PO Q8H PRN for PAIN-MILD (1-4) OR TEMPATURE, (Reported) Entered as Reported by: GIO CARLOS on 05/19/211547 Last Action: Reviewed Albuterol Sulfate (Proair Hfa) 1 Puff Puff, 2 PUFF IH QID PRN for SHORTNESS OF BREATH, (Reported) Entered as Reported by: GIO CARLOS on 05/19/211547 Last Action: Reviewed Allopurinol (Allopurinol) 100 Mg Tablet, 100 MG PO DAILY, (Reported) Entered as Reported by: GIO CARLOS on 05/19/211547 Last Action: Reviewed Amlodipine Besylate (Amlodipine Besylate) 5 Mg Tablet, 2.5 MG PO 1200, (Reported) Entered as Reported by: GIO CARLOS on 05/19/211547 Last Action: Reviewed Antiox #11/Om3/Dha/Epa/Lut/Salvador (Eye Health Adult 50+ Softgel) 1 Each Capsule, 1 EACH PO BID, (Reported) Entered as Reported by: GIO CARLOS on 05/19/211548 Last Action: Reviewed Ascorbate Calcium (Vitamin C) 500 Mg Tablet, 500 MG PO DAILY, (Reported) Entered as Reported by: GIO CARLOS on 05/19/211547 Last Action: Reviewed Aspirin (Aspirin EC) 81 Mg Tablet.dr, 81 MG PO DAILY, (Reported) Entered as Reported by: GIO CARLOS on 05/19/211547 Last Action: Reviewed Atorvastatin Calcium (Atorvastatin Calcium) 80 Mg Tablet, 40 MG PO HS, (Reported) Entered as Reported by: GIO CARLOS on 05/19/211547 Last Action: Reviewed Cyanocobalamin (Vitamin B-12) (Vitamin B-12) 1,000 Mcg Tablet, 1,000 MCG PO DAILY, (Reported) Entered as Reported by: GIO CARLOS on 05/19/211548 Last Action: Reviewed Cyclobenzaprine HCl (Cyclobenzaprine HCl) 10 Mg Tablet, 10 MG PO HS PRN for MUSCLE SPASMS, (Reported) Entered as Reported by: GIO CARLOS on 05/19/211548 Last Action: Reviewed Hydrochlorothiazide (Hydrochlorothiazide) 25 Mg Tablet, 12.5 MG PO, (Reported) Entered as Reported by: GIO CARLOS on 05/19/211548 Last Action: Reviewed Lisinopril (Lisinopril) 40 Mg Tablet, 40 MG PO DAILY, (Reported) Entered as Reported by: GIO CARLOS on 05/19/211548 Last Action: Reviewed Multivitamin with Minerals (Multivitamins with Minerals) 1 Each Tablet, 1 EACH PO DAILY, (Reported) Entered as Reported by: GIO CARLOS on 05/19/211548 Last Action: Reviewed Sotalol HCl (Sotalol) 80 Mg Tablet, 40 MG PO BID, (Reported) Entered as Reported by: GIO CARLOS on 05/19/211548 Last Action: Reviewed Tamsulosin HCl (Flomax) 0.4 Mg Cap, 0.4 MG PO DAILY, (Reported) Entered as Reported by: GIO CARLOS on 05/19/211548 Last Action: Reviewed Discontinued Medications Sotalol HCl (Betapace) 80 Mg Tablet, 80 MG PO, (Reported) Discontinued Reason: Duplicate Order Entered as Reported by: GIO CARLOS on 3/18/22 1549 Last Action: Discontinued Past Nbhvzue-Qsnnxf-Ippbqu Hx Patient Social History Marrital Status: Tobacco Use?: No Smoking Status: Former Smoker Smokeless Tobacco Frequency: Never a User Use of E-Cig and/or Vaping dev: No Substance use?: No Alcohol Use?: No Pt feels they are or have been: No Immunizations Up To Date First/Initial COVID19 Vaccinat: 2020 Second COVID19 Vaccination Eugenio: 2020 Current Status Advance Directives: No Communicates: Verbally Primary Language: Burundian Preferred Spoken Language: Burundian Is interpretation needed?: No Sensory deficits: Vision impairment Implanted or Applied Medical D: Pacemaker Past Medical History Surgeries: Defibrillator, Orthopedic, Pacemaker Cardiomyopathy (Arrhythmogenic Right Ventricular Dysplasia), High Cholesterol Chronic Constipation Gout Diabetes, Non-Insulin dep Review of Systems Constitutional: No chills, No diaphoresis; dizziness (resolved) Respiratory: dyspnea on exertion, short of breath (improved from yesterday) Cardiovascular: syncope Gastrointestinal: No abdominal pain; nausea (improved) Genitourinary: decreased output Musculoskeletal: back pain Physical Exam Vital Signs Vital Signs - First Documented 05/19/21 09:37 Temp 36.2 Pulse 142 Resp 20 B/P (MAP) 74/45 (55) Pulse Ox 95 O2 Delivery Nasal Cannula O2 Flow Rate 5.00 Capillary Refill : NONE Height, Weight, BMI Height: 6'1.00" Weight: 235lbs. oz. 106.733709yk; 32.69 BMI Method:Stated General Appearance: Mild Distress HEENT: PERRL/EOMI Neck: Non Tender, Supple Respiratory: Lungs Clear, No Accessory Muscle Use Cardiovascular: Tachycardia Gastrointestinal: Normal Bowel Sounds, Non Tender, Soft Back: Normal Inspection Extremity: Normal Inspection, No Pedal Edema Neurologic/Psychiatric: Alert, Oriented x3 Assessment/Plan Assessment and Plan Cardiogenic Shock VTAC Arrhythmogenic Right Ventricular Dysplasia NEVAEH Distal Right Fibular Fracture, Non-displaced T2DM BPH - Cardiology consulted. Patient underwent successful cardioversion today around noon. BP 130/103, HR 63 afterwards - Continuing IV Amiodarone - Duong placed due to lack of urination for 48hrs and h/o BPH - Ortho consulted for management of fibular fracture Problems: (1) Cardiogenic shock Status: Acute (2) Ventricular tachycardia Status: Acute (3) Arrhythmogenic right ventricular dysplasia Status: Acute (4) Acute kidney injury Status: Acute Admission Diagnosis Admission Status: Inpatient Order (span 2 midnights) Clinical Quality Measures AMI/AHF: ASA po Prior to arrival: MEKHI Alexander MD 05/21/21 2019: Allergies and Home Medications Allergies Uncoded Allergies: UNKNOWN CHOLESTEROL MED. (Allergy, Unknown, 02/12/18) Patient Home Medication List Home Medication List Reviewed: Yes Acetaminophen (Tylenol Extra Strength) 500 Mg Tablet, 1,000 MG PO Q8H PRN for PAIN-MILD (1-4) OR TEMPATURE, (Reported) Entered as Reported by: GIO CARLOS on 05/19/211547 Last Action: Reviewed Albuterol Sulfate (Proair Hfa) 1 Puff Puff, 2 PUFF IH QID PRN for SHORTNESS OF BREATH, (Reported) Entered as Reported by: GIO CARLOS on 05/19/211547 Last Action: Reviewed Allopurinol (Allopurinol) 100 Mg Tablet, 100 MG PO DAILY, (Reported) Entered as Reported by: GIO CARLOS on 05/19/211547 Last Action: Reviewed Amlodipine Besylate (Amlodipine Besylate) 5 Mg Tablet, 2.5 MG PO 1200, (Reported) Entered as Reported by: GIO CARLOS on 05/19/211547 Last Action: Reviewed Antiox #11/Om3/Dha/Epa/Lut/Salvador (Eye Health Adult 50+ Softgel) 1 Each Capsule, 1 EACH PO BID, (Reported) Entered as Reported by: GIO CARLOS on 05/19/211548 Last Action: Reviewed Ascorbate Calcium (Vitamin C) 500 Mg Tablet, 500 MG PO DAILY, (Reported) Entered as Reported by: GIO CARLOS on 05/19/211547 Last Action: Reviewed Aspirin (Aspirin EC) 81 Mg Tablet.dr, 81 MG PO DAILY, (Reported) Entered as Reported by: GIO CARLOS on 05/19/211547 Last Action: Reviewed Atorvastatin Calcium (Atorvastatin Calcium) 80 Mg Tablet, 40 MG PO HS, (Reported) Entered as Reported by: GIO CARLOS on 05/19/211547 Last Action: Reviewed Cyanocobalamin (Vitamin B-12) (Vitamin B-12) 1,000 Mcg Tablet, 1,000 MCG PO DAILY, (Reported) Entered as Reported by: GIO CARLOS on 05/19/211548 Last Action: Reviewed Cyclobenzaprine HCl (Cyclobenzaprine HCl) 10 Mg Tablet, 10 MG PO HS PRN for MUSCLE SPASMS, (Reported) Entered as Reported by: GIO CARLOS on 05/19/211548 Last Action: Reviewed Hydrochlorothiazide (Hydrochlorothiazide) 25 Mg Tablet, 12.5 MG PO, (Reported) Entered as Reported by: GIO CARLOS on 05/19/211548 Last Action: Reviewed Lisinopril (Lisinopril) 40 Mg Tablet, 40 MG PO DAILY, (Reported) Entered as Reported by: GIO CARLOS on 05/19/211548 Last Action: Reviewed Multivitamin with Minerals (Multivitamins with Minerals) 1 Each Tablet, 1 EACH PO DAILY, (Reported) Entered as Reported by: GIO CARLOS on 05/19/211548 Last Action: Reviewed Sotalol HCl (Sotalol) 80 Mg Tablet, 40 MG PO BID, (Reported) Entered as Reported by: GIO CARLOS on 05/19/211548 Last Action: Reviewed Tamsulosin HCl (Flomax) 0.4 Mg Cap, 0.4 MG PO DAILY, (Reported) Entered as Reported by: GIO CARLOS on 05/19/211548 Last Action: Reviewed Discontinued Medications Sotalol HCl (Betapace) 80 Mg Tablet, 80 MG PO, (Reported) Discontinued Reason: Duplicate Order Entered as Reported by: GIO CARLOS on 05/19/211548 Last Action: Discontinued Assessment/Plan Assessment and Plan Admitted with unstable VTach. Cardiology consulted. Underwent cardioversion. Sta rted on Amiodarone. Monitor closely. Supervisory-Addendum Brief Verification & Attestation Participated in pt care: history, MDM, physical Personally performed: exam, history, MDM, supervision of care Care discussed with: Medical Student Procedures: n/a Results interpretation: Verified all documentation A medical student performed and documented this service in my presence. I reviewed and verified all information documented by the medical student and made modifications to such information, when appropriate. I personally performed the physical exam and medical decision making. AMILCAR DURAN May 19, 2021 14:12 MEKHI GIFFORD MD May 21, 2021 20:19
--- NOTE | 2021-05-19 14:38 | Tele-ICU Progress Note ---
Subjective Date Seen by a Provider: May 19, 2021 Time Seen by a Provider: 14:20 Subjective/Events-last exam (Tele-ICU Physician , consultation) Available chart/ vitals / labs / Images reviewed H&P is from ER notes Patient's information available about PMH, Shx, Fhx allergy reviewed in EMR. ROS as per chart and RN report Video assessment done using teleICU camera, rest of exam as per RN Discussed with RN. Consultants: sanam ortho Hospital course: (05/19) 76m admitted for Ventricular tachycardia-has Arrhythmogenic Right Ventricle Dysplasia-normally followed at [facility] in [place]. NEVAEH, and elevated trop onins. Cardioverted to SR. A/P sustained ventricular tachycardia 05/19 - Cardioverted to SR. - amio gtt - as per cards h/o AVRD ( Arrhythmogenic Right Ventricle Dysplasia - as per cards DM II - as per pcp NEVAEH ? - hydration , check CPK, monitor Right ankle injury - s/p fall - Nondisplaced distal fibular fracture - ortho consulted Lines : periph (Central Line Necessity Reviewed) Duong: OG: Nutrition: Analgesia: Anxiety/ delirium VTE Prophylaxis: SCD vs fred - await ortho Stress Ulcer Prophylaxis: po Plans in collaboration with bedside consultants and IM MDs. Discussed with RN to reach out if any questions or concerns A total of 31 minutes of critical care time was devoted to this patient today, required to treat and/or prevent further deterioration of critical care condition ( as above Sepsis Event Evaluation Height, Weight, BMI Height: 6'1.00" Weight: 235lbs. oz. 106.304172np; 32.69 BMI Method:Stated Exam Exam Patient acknowledged, consented, and participated in this virtual visit which was conducted using real time audio/video Vital Signs Date Time Temp Pulse Resp B/P (MAP) Pulse Ox O2 Delivery O2 Flow Rate FiO2 05/19/21 14:00 61 7 111/71 92 05/19/21 13:00 63 05/19/21 13:00 61 24 114/78 96 05/19/21 12:50 36.6 05/19/21 12:38 77 05/19/21 12:14 High Flow N/C 05/19/21 12:00 141 26 130/103 93 05/19/21 11:45 140 18 88/66 93 05/19/21 11:30 140 25 86/57 93 05/19/21 11:28 141 05/19/21 11:27 144 20 80/49 95 Nasal Cannula 6.00 5.00 05/19/21 11:15 121/57 05/19/21 11:15 121/57 05/19/21 10:32 144 80/40 05/19/21 10:18 153 75/49 05/19/21 09:37 95 Nasal Cannula 5.00 05/19/21 09:37 36.2 142 20 74/45 (55) 95 Height & Weight Height: 6'1.00" Weight: 235lbs. oz. 106.000941yd; 32.69 BMI Method:Stated General Appearance: No Apparent Distress, Mild Distress HEENT: PERRL/EOMI Neck: Non Tender, Supple Respiratory: Lungs Clear, No Accessory Muscle Use Cardiovascular: Tachycardia Capillary Refill: NONE Extremity: Normal Inspection, No Pedal Edema Neurologic/Psychiatric: Alert, Oriented x3 Skin: Normal Color, Warm/Dry, Pallor (Mild) Results Lab Laboratory Tests 05/19/21 09:45 Assessment/Plan Assessment/Plan . RICARDO WOODWARD MD May 19, 2021 14:38
[2021-05-19] MEDS ORDERED: NS IV 1000 ML 1,000 ML ONE (15:02)
[2021-05-19] MEDS ORDERED: HEParin (CATH LAB) 2,000 ML IV ONE (15:02)
[2021-05-19] MEDS ORDERED: LIDOCAINE 1% INJ 50 ML (XYLOCAINE) VIAL ONE (15:02)
[2021-05-19] MEDS ORDERED: NITRO DRIP 25000 MCG/D5W 250 ML IV ONE (15:14)
[2021-05-19] MEDS ORDERED: MIDAZOLAM 5 MG/5 ML (VERSED) VIAL ONE (15:14)
[2021-05-19] MEDS ORDERED: fentaNYL INJ 100 MCG/2 ML AMP ONE (15:14)
[2021-05-19] MEDS ORDERED: VERAPAMIL 5 MG/2 ML (CALAN) VIAL IV ONE (15:14)
[2021-05-19] MEDS ORDERED: HEParin 1000 UNIT/ML (10ML VIAL) FOR BOLUS ONE (15:14)
[2021-05-19] MEDS ORDERED: NS IV 1000 ML 1,000 ML IV ONE (15:30)
[2021-05-19] MEDS ORDERED: ALLO100T PO (15:48)
[2021-05-19] MEDS ORDERED: RT-ALBUINH IH (15:48)
[2021-05-19] MEDS ORDERED: ASCO-262 PO (15:48)
[2021-05-19] MEDS ORDERED: ACET-2267 PO (15:48)
[2021-05-19] MEDS ORDERED: ATOR80TA76 PO (15:48)
[2021-05-19] MEDS ORDERED: ASPI-1238 PO (15:48)
[2021-05-19] MEDS ORDERED: AMLO-250 PO (15:48)
[2021-05-19] MEDS ORDERED: SOTA80TA62 PO (15:49)
[2021-05-19] MEDS ORDERED: CYAN-41 PO (15:49)
[2021-05-19] MEDS ORDERED: HYDR25TA4 PO (15:49)
[2021-05-19] MEDS ORDERED: ANTI1CAP5 PO (15:49)
[2021-05-19] MEDS ORDERED: MULT-166 PO (15:49)
[2021-05-19] MEDS ORDERED: TMSL.4C PO (15:49)
[2021-05-19] MEDS ORDERED: LISI40TA9 PO (15:49)
[2021-05-19] MEDS ORDERED: CYCL10TA25 PO (15:49)
[2021-05-19] MEDS ORDERED: SOTA80TA22 PO (15:49)
[2021-05-19] MEDS ORDERED: LIDOCAINE DRIP 500 ML IV SCH (16:30)
[2021-05-19] MEDS ORDERED: PATIENT MAY USE OWN MEDS, ALL PO SCH (16:45)
--- NOTE | 2021-05-19 16:56 | Cardiac Cath Report ---
CARDIAC CATHETERIZATION DATE OF PROCEDURE: 05/19/2021 INDICATION: Non-ST elevation myocardial infarction. HISTORY: The patient is a 76 year old male with a history of arrhythmogenic right ventricular dysplasia (ARVD). 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 in [place], [place]. He presented to our hospital this morning with profound fatigue, dyspnea and some chest discomfort. He was found to be in sustained ventricular tachycardia. His initial blood pressures were normal but he later developed unstable blood pressure and required cardioversion. His troponin levels also became elevated concerning for possible non-ST elevation myocardial infarction. As such, he is now referred for further evaluation with a cardiac catheterization. PROCEDURES PERFORMED: 1. Left heart catheterization with hemodynamic measurements. 2. Diagnostic [place] coronary angiography. PROCEDURE DESCRIPTION: After informed consent and in the fasting state, left heart catheterization was performed through the right radial artery utilizing a 6 Macedonian system by percutaneous approach. Standard 5 Macedonian Liv catheters were utilized for the diagnostic portion of the procedure. All catheters were exchanged over a guidewire. Following the procedure, a vascular band was applied to the radial artery access site and the sheath was removed with good hemostasis. RESULTS: HEMODYNAMICS: The aortic pressure was 93/59 mmHg. The left ventricular pressure was 101/0 mmHg with a left ventricular end-diastolic pressure of 8 mmHg. There was no significant pressure gradient upon pullback across the aortic valve. CORONARY ANGIOGRAPHY: Left main coronary artery: Long and free of significant disease. Left anterior descending coronary artery: Free of significant disease with somewhat delayed flow to the apex. Left circumflex coronary artery: Free of significant disease. Right coronary artery: Dominant and free of significant disease. IMPRESSION: 1. Normal left heart pressures. 2. Angiographically normal-appearing coronary arteries in a right dominant system. 3. The patient is known to have normal left ventricular systolic function with an estimated ejection fraction of 50-55% by echocardiogram performed prior to this procedure. Certain portions of this document may have been dictated utilizing voice recognition technology. Inherent to this technology, typographical and gramm atical errors may exist. As much as I am diligent to identify and correct these mistakes, some errors may remain in the document. JOSEFINA JUNE JR, MD May 19, 2021 16:56
[2021-05-19] MEDS: NS IV 1000 ML 1,000 ML IV SCH ×2 (17:19→23:17)
[2021-05-19] MEDS ORDERED: LIDOCAINE IV SCH (18:00)
[2021-05-19] MEDS: SOTALOL 80 MG (BETAPACE) TAB PO SCH (20:55)
[2021-05-19] MEDS ORDERED: SOTALOL 80 MG (BETAPACE) TAB PO SCH (21:00)
[2021-05-19] MEDS: MEXILETINE 150 MG (MEXITIL) CAPSULE PO SCH (21:38)
[2021-05-20 05:17] LABS: BASOPHILS % (AUTO) 0 % (0-10); EOSINOPHILS # (AUTO) 0.1 10^3/uL (0.0-0.3); EOSINOPHILS % (AUTO) 2 % (0-10); HEMATOCRIT 36 % (40-54); HEMOGLOBIN 12.3 g/dL (13.3-17.7); LYMPHOCYTES # (AUTO) 1.3 10^3/uL (1.0-4.0); LYMPHOCYTES % (AUTO) 16 % (12-44); MEAN CORPUSCULAR HEMOGLOBIN 34 pg (25-34); MEAN CORPUSCULAR HGB CONC 34 g/dL (32-36); MEAN CORPUSCULAR VOLUME 100 fL (80-99); MONOCYTES # (AUTO) 0.7 10^3/uL (0.0-1.0); MONOCYTES % (AUTO) 9 % (0-12); NEUTROPHILS # (AUTO) 6.1 10^3/uL (1.8-7.8); NEUTROPHILS % (AUTO) 73 % (42-75); PLATELET COUNT 138 10^3/uL (130-400); WHITE BLOOD COUNT 8.3 10^3/uL (4.3-11.0)
[2021-05-20 05:40] LABS: POTASSIUM 3.6 MMOL/L (3.6-5.0)
[2021-05-20 05:41] LABS: CALCIUM 9.1 MG/DL (8.5-10.1)
[2021-05-20 05:45] LABS: CREATININE SERUM 1.54 MG/DL (0.60-1.30); PHOSPHORUS 3.2 MG/DL (2.3-4.7)
[2021-05-20 05:48] LABS: MAGNESIUM 1.7 MG/DL (1.6-2.4)
[2021-05-20] MEDS: POTASSIUM CL 10MEQ/50ML IVPB 50 ML IV SCH (06:00)
[2021-05-20] MEDS: MAGNESIUM 1 GM/100 ML IVPB 100 ML IV SCH (06:00)
[2021-05-20] MEDS: MEXILETINE 150 MG (MEXITIL) CAPSULE PO SCH ×3 (06:11→21:21)
[2021-05-20] MEDS: KCL 20 MEQ TAB (K-DUR) PO SCH (06:14)
[2021-05-20] MEDS: SOTALOL 80 MG (BETAPACE) TAB PO SCH ×2 (08:24→21:21)
[2021-05-20] MEDS: ASPIRIN E.C. 81 MG (ECOTRIN) TAB PO SCH (08:24)
[2021-05-20] MEDS ORDERED: TAMSULOSIN 0.4 MG (FLOMAX) CAP PO ONE (09:00)
[2021-05-20] MEDS ORDERED: ASPIRIN 81 MG CHEW (CHILDREN'S ASA) PO SCH (09:00)
--- NOTE | 2021-05-20 09:37 | Cardiology Progress Note ---
Progress Note-Cardiology Events since last exam Date Seen by Provider: May 20, 2021 Time Seen by Provider: 09:32 Events since last exam I am following him due to ventricular tachycardia. He remains in the intensive care unit. He has not had any further ventricular tachycardia overnight. He denies chest discomfort, dyspnea at rest, palpitations, or syncope. He has chronic bilateral mild ankle edema which is unchanged. His lightheadedness has improved. Certain portions of this document may have been dictated utilizing voice recognition technology. Inherent to this technology, typographical and gramma tical errors may exist. As much as I am diligent to identify and correct these mistakes, some errors may remain in the document. Vitals Last set of Vitals Signs Vital Signs 05/20/21 05/20/21 07:36 09:00 Temp 36.6 Pulse 84 Resp 13 B/P (MAP) 164/112 Pulse Ox 93 O2 Delivery Nasal Cannula O2 Flow Rate 5.00 Labs Labs Laboratory Tests 05/19/21 09:45 05/19/21 13:07 05/20/21 05:00 Exam Vital Signs Vital Signs Date Time Temp Pulse Resp B/P (MAP) Pulse Ox O2 Delivery O2 Flow Rate FiO2 05/20/21 09:00 84 13 164/112 93 Nasal Cannula 5.00 05/20/21 07:36 36.6 Physical Exam General: Alert. No acute distress. Eye: No xanthelasma. HENT: Normocephalic. Neck: Jugular venous pressure does not appear elevated. Respiratory: Lungs are clear to auscultation. Respirations are non-labored. Breath sounds are equal. Symmetrical chest wall expansion. Cardiovascular: Normal rate. Regular rhythm. No murmur. No gallop. Trace bilateral pretibial edema. Gastrointestinal: Soft. Normal bowel sounds. Skin: Warm. Dry. Right foot is in a boot. Neurologic: Alert and oriented to person, place, time. Cranial nerves 3-11 grossly intact. Psychiatric: Cooperative. Appropriate mood & affect. Labs Laboratory Tests Test 05/19/21 09:45 05/19/21 13:07 05/20/21 05:00 Range/Units White Blood Count 9.5 8.3 4.3-11.0 10^3/uL Red Blood Count 3.87 L 3.64 L 4.30-5.52 10^6/uL Hemoglobin 13.0 L 12.3 L 13.3-17.7 g/dL Hematocrit 39 L 36 L 40-54 % Mean Corpuscular Volume 101 H 100 H 80-99 fL Mean Corpuscular Hemoglobin 34 34 25-34 pg Mean Corpuscular Hemoglobin Concent 33 34 32-36 g/dL Red Cell Distribution Width 13.8 13.6 10.0-14.5 % Platelet Count 167 138 130-400 10^3/uL Mean Platelet Volume 10.8 11.0 9.0-12.2 fL Immature Granulocyte % (Auto) 0 0 % Neutrophils (%) (Auto) 72 73 42-75 % Lymphocytes (%) (Auto) 19 16 12-44 % Monocytes (%) (Auto) 9 9 0-12 % Eosinophils (%) (Auto) 1 2 0-10 % Basophils (%) (Auto) 0 0 0-10 % Neutrophils # (Auto) 6.8 6.1 1.8-7.8 10^3/uL Lymphocytes # (Auto) 1.8 1.3 1.0-4.0 10^3/uL Monocytes # (Auto) 0.8 0.7 0.0-1.0 10^3/uL Eosinophils # (Auto) 0.1 0.1 0.0-0.3 10^3/uL Basophils # (Auto) 0.0 0.0 0.0-0.1 10^3/uL Immature Granulocyte # (Auto) 0.0 0.0 0.0-0.1 10^3/uL Prothrombin Time 15.5 H 12.2-14.7 SEC INR Comment 1.2 0.8-1.4 Activated Partial Thromboplast Time 32 24-35 SEC Sodium Level 137 136 135-145 MMOL/L Potassium Level 4.0 3.6 3.6-5.0 MMOL/L Chloride Level 102 104 98-107 MMOL/L Carbon Dioxide Level 17 L 18 L 21-32 MMOL/L Anion Gap 18 H 14 5-14 MMOL/L Blood Urea Nitrogen 38 H 33 H 7-18 MG/DL Creatinine 2.53 H 2.05 H 1.54 H 0.60-1.30 MG/DL Estimat Glomerular Filtration Rate 26 47 BUN/Creatinine Ratio 15 21 Glucose Level 148 H 132 H 70-105 MG/DL Calcium Level 9.7 9.1 8.5-10.1 MG/DL Corrected Calcium 9.8 8.5-10.1 MG/DL Magnesium Level 1.9 1.7 1.6-2.4 MG/DL Total Bilirubin 1.1 H 0.1-1.0 MG/DL Aspartate Amino Transf (AST/SGOT) 69 H 5-34 U/L Alanine Aminotransferase (ALT/SGPT) 47 0-55 U/L Alkaline Phosphatase 96 40-136 U/L Myoglobin 469.0 H 10.0-92.0 NG/ML Troponin I 6.238 *H 7.017 *H <0.028 NG/ML Total Protein 7.5 6.4-8.2 GM/DL Albumin 3.9 3.2-4.5 GM/DL Phosphorus Level 3.2 2.3-4.7 MG/DL Triglycerides Level 76 <150 MG/DL Cholesterol Level 102 < 200 MG/DL LDL Cholesterol Direct 48 1-129 MG/DL VLDL Cholesterol 15 5-40 MG/DL HDL Cholesterol 40 40-60 MG/DL Diagnosis/Problems Diagnosis/Problems (1) Ventricular tachycardia Assessment & Plan: He was initially treated with intravenous amiodarone but remained in ventricular tachycardia and then developed hypotension. I then performed a cardioversion and he converted to sinus rhythm and his blood pressure improved. I spoke to an mill operator at [facility] who recommends the patient continue sotalol 40 mg twice daily unless this needs to be reduced to once daily dosing due to his acute kidney injury. He recommends stopping intravenous amiodarone and changing this over to intravenous lidocaine 1 mg/min for 24 hours. Also start mexiletine 150 mg p.o. every 8 hours. The intravenous lidocaine will finish tonight. The mexiletine has been started. With the assistance of the [employer] device rep, his device has been reprogrammed to lower the ventricular tachycardia detection rate and we have adjusted the treatment protocols for the ventricular tachycardia with the assistance of the mill operator in [employer]. I will plan to see the patient in my office in 1-2 weeks following discharge. Then I can coordinate getting the patient in to see an mill operator in the [place] area in the next few weeks. (2) Arrhythmogenic right ventricular dysplasia Status: Acute Assessment & Plan: He has a known history of arrhythmogenic right ventricular dysplasia. He has a biventricular dual-chamber defibrillator in place. We will proceed as above. (3) Elevated troponin Status: Acute Assessment & Plan: His troponin was quite elevated even prior to the cardioversion. However, his cardiac catheterization did not show any significant coronary artery disease. This was a probable type II non-ST elevation myocardial infarction possibly related to hypotension that occurred with the ventricular tachycardia resulting in supply/demand mismatch. (4) Primary hypertension Assessment & Plan: I held his antihypertensive medication due to the low blood pressure at the time of admission. His blood pressures are now becoming elevated. I will restart his amlodipine 2.5 mg daily. I will hold off on resuming lisinopril until we see his renal function come back to his previous baseline. (5) Mixed hyperlipidemia Assessment & Plan: Continues atorvastatin. (6) Acute kidney injury Status: Acute Assessment & Plan: His renal function is starting to improve. This may have in part been brought on by significant hypotension that occurred with the ventricular tachycardia. (7) Right fibular fracture Assessment & Plan: I have taken the liberty of consulting orthopedic surgery for management. JOSEFINA JUNE JR, MD May 20, 2021 09:37
[2021-05-20] MEDS ORDERED: amLODIPine 2.5MG (NORVASC) TAB PO ONE (09:45)
[2021-05-20] MEDS: polyethylene glycoL POWDER 17 GM (MIRALAX) PACK PO PRN (09:46)
--- NOTE | 2021-05-20 10:18 | Tele-ICU Progress Note ---
Subjective Time Seen by a Provider: 10:18 Subjective/Events-last exam (Tele-ICU Physician , Progress Note ) Available chart/ vitals / labs / Images reviewed Video assessment done using teleICU camera, rest of exam as per RN Discussed with RN , EXAM PER RN Events overnight : Afebrile FiO2 - 5L nc I/O = Drips: Pressors: , hemodynamically stable Consultants: Consultants: sanam zuniga Hospital course: (05/19) 76m admitted for Ventricular tachycardia-has Arrhythmogenic Right Ventricle Dysplasia-normally followed at [facility] in [place]. NEVAEH, and elevated troponins. Cardioverted to SR. A/P sustained ventricular tachycardia 05/19 - Cardioverted to SR. - lido ftt - to stop 5 pm - as per cards NSTEMI - s/p cath 05/19 - NL arteries -ECHO EF 55% RVSP 2 mm Hg h/o AVRD ( Arrhythmogenic Right Ventricle Dysplasia - as per cards DM II - as per pcp NEVAEH ? - hydration , monitor after contrast Right ankle injury - s/p fall - Nondisplaced distal fibular fracture - ortho consulted Hypoxia - 5 L - to wean Lines : periph (Central Line Necessity Reviewed) Duong: + OG: Nutrition: Analgesia: Anxiety/ delirium VTE Prophylaxis: SCD vs fred - await ortho Stress Ulcer Prophylaxis: po Plans in collaboration with bedside consultants and IM MDs. Discussed with RN to reach out if any questions or concerns A total of 31 minutes of critical care time was devoted to this patient today, required to treat and/or prevent further deterioration of critical care condition ( as above Sepsis Event Evaluation Height, Weight, BMI Height: 6'1.00" Weight: 235lbs. oz. 106.578063pm; 32.69 BMI Method:Stated Exam Exam Patient acknowledged, consented, and participated in this virtual visit which was conducted using real time audio/video Vital Signs Date Time Temp Pulse Resp B/P (MAP) Pulse Ox O2 Delivery O2 Flow Rate FiO2 05/20/21 10:00 84 23 148/99 92 Nasal Cannula 5.00 05/20/21 09:00 84 13 164/112 93 Nasal Cannula 5.00 05/20/21 08:00 71 20 163/110 93 Nasal Cannula 5.00 05/20/21 08:00 Nasal Cannula 6.00 05/20/21 07:36 36.6 05/20/21 07:00 83 05/20/21 07:00 86 28 173/113 95 Nasal Cannula 5.00 05/20/21 06:08 Nasal Cannula 6.00 05/20/21 06:00 79 20 171/113 96 Nasal Cannula 5.00 05/20/21 05:00 76 15 127/92 93 Nasal Cannula 5.00 05/20/21 04:00 78 22 121/80 91 Nasal Cannula 5.00 05/20/21 04:00 Nasal Cannula 6.00 05/20/21 04:00 36.3 05/20/21 03:00 76 15 145/104 96 Nasal Cannula 5.00 05/20/21 02:00 69 18 123/111 92 Nasal Cannula 5.00 05/20/21 01:00 82 05/20/21 01:00 79 26 163/110 90 Nasal Cannula 5.00 05/20/21 00:00 Nasal Cannula 6.00 05/20/21 00:00 71 18 118/75 99 Nasal Cannula 5.00 05/20/21 00:00 36.0 05/19/21 23:00 70 17 130/78 96 Nasal Cannula 5.00 05/19/21 22:00 66 16 144/86 92 Nasal Cannula 5.00 05/19/21 21:00 65 16 141/105 92 Nasal Cannula 5.00 05/19/21 20:55 66 05/19/21 20:00 63 25 145/93 95 Nasal Cannula 5.00 05/19/21 20:00 36.2 05/19/21 20:00 Nasal Cannula 6.00 05/19/21 19:00 59 16 146/87 96 Nasal Cannula 5.00 05/19/21 19:00 59 05/19/21 18:01 60 121/78 05/19/21 18:00 61 22 127/100 92 Nasal Cannula 5.00 05/19/21 17:17 60 121/78 05/19/21 17:00 121/78 05/19/21 17:00 60 6 86 Nasal Cannula 5.00 05/19/21 16:00 92 High Flow N/C 6.00 05/19/21 15:59 36.1 05/19/21 15:00 59 19 131/80 91 Nasal Cannula 5.00 05/19/21 14:00 61 7 111/71 92 05/19/21 13:00 63 05/19/21 13:00 61 24 114/78 96 05/19/21 12:50 36.6 05/19/21 12:38 77 05/19/21 12:14 High Flow N/C 05/19/21 12:00 92 High Flow N/C 6.00 05/19/21 12:00 141 26 130/103 93 05/19/21 11:45 140 18 88/66 93 05/19/21 11:30 140 25 86/57 93 05/19/21 11:28 141 05/19/21 11:27 144 20 80/49 95 Nasal Cannula 6.00 5.00 05/19/21 11:15 121/57 05/19/21 11:15 121/57 05/19/21 10:32 144 80/40 I & O 05/20/21 07:00 Intake Total 1753 ml Output Total 4725 ml Balance -2972 ml Height & Weight Height: 6'1.00" Weight: 235lbs. oz. 106.742282bh; 32.69 BMI Method:Stated General Appearance: No Apparent Distress, WD/WN, Other (Appears fatigued) HEENT: PERRL/EOMI, Normal ENT Inspection Neck: Normal Inspection; No JVD Respiratory: Lungs Clear, Normal Breath Sounds, No Accessory Muscle Use Cardiovascular: No Edema, No Murmur, Tachycardia (Regular) Capillary Refill: Less Than 3 Seconds Extremity: Normal Inspection, No Pedal Edema, Other (Trace lower extremity edema. 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 RICARDO WOODWARD MD May 20, 2021 10:18
--- NOTE | 2021-05-20 10:20 | Occupational Therapy Eval ---
OT Evaluation-General/PLF Medical Diagnosis Admission Date May 19, 2021 at 10:47 Medical Diagnosis: ventricular tachycardia, R distal fibular fx Onset Date: May 19, 2021 Therapy Diagnosis Therapy Diagnosis: decreased ADL status Height/Weight Height (Feet): 6 Height (Inches): 1.00 Weight (Pounds): 235 Precautions Precautions/Isolations: Fall Prevention, Standard Precautions Weight Bear Status Weight Bearing Restriction: Touch Toe Bearing Location Restriction: R LE Referral Physician: Neida Referral Reason: Evaluation/Treatment Medical History Additional Medical History BPH DM, arrhythmogenic R ventricular dysplasia, cardiomyopathy, GOUT Current History presents after episode of syncope where pt fell in parking lot, injuring R ankle. On arrival to ED pt hypotensive and tachycardic, s/p cardioversion 05/19/21. X-Ray revealed R distal fibular fx, non-displaced. Per order history, pt is currently TTWB RLE. Social History Home: Single Level Current Living Status: Significant Other Entry Into Home: Stairs Without Railing Steps Into Home: 2 ADL-Prior Level of Function SCALE: Activities may be completed with or without assistive devices. 5-Oobuckrznd-aspcdsh completes the activity by him/herself with no assistance from a helper. 5-Set-up or Clean-up Assistance-helper sets up or cleans up; patient completes activity. Crozier assists only prior to or following the activity. 4-Supervision or Touching Assistance-helper provides verbal cues and/or touching/steadying and/or contact guard assistance as patient completes activity. Assistance may be provided throughout the activity or intermittently. 3-Partial/Moderate Assistance-helper does LESS THAN HALF the effort. Crozier lifts, holds or supports trunk or limbs, but provides less than half the effort. 2-Substantial/Maximal Assistance-helper does MORE THAN HALF the effort. Crozier lifts or holds trunk or limbs and provides more than half the effort. 9-Qiuptvvwf-kjfegs does ALL the effort. Patient does none of the effort to complete the activity. Or, the assistance of 2 or more helpers is required for the patient to complete the activity. If activity was not attempted, code reason: 7-Patient Refused. 9-Not Applicable-not attempted and the patient did not perform the activity before the current illness, exacerbation or injury. 10-Not Attempted due to Environmental Limitations-(lack of equipment, weather restraints, etc.). 88-Not Attempted due to Medical Conditions or Safety Concerns. ADL PLOF Comments Pt reports IND with ADLs and functional mobility without AD at PLOF. Pt's indicates their house is very full of stuff, it is only a 1 bedroom house with 2 people, 2 dogs, and 1 cat, and stuff everywhere. Pt's indicates a w/c and walker are unable to be used in the house because of how much stuff there is. The walker will not fit through the bathroom doors. Pt's indicates the only option for them are crutches, and even then crutches would have to be used sideways at times. They have a tub/shower combo with a bath bench. No GBs in bathrooms, as they have been unable to locate studs. Self Care: Independent Functional Cognition: Independent DME/Equipment: Bath Bench, Tub/Shower Drive Self: Yes OT Current Status Subjective Pt laying in bed, at beside. Pt agreeable to OT Tx. Mental Status/Objective Patient Orientation: Person, Place, Situation Attachments: Oxygen Current Hand Dominance: Right Upper Extremity ROM WFL Upper Extremity Coordination WFL Upper Extremity Strength grossly 4+/5 BUEs. ADL-Treatment Eating (QC): 6 (IND with breakfast.) Oral Hygiene (QC): 5 (set up at tray table.) Other Treatments Pt in bed, agreeable to OT Tx. Pt finishing breakfast, pt and provided information about PLOF and home set up. Pt agreeable to completing oral care and grooming, pt able to complete with set up assistance. Pt's goes into detail about their house, and how it is not accessible to w/c or walker. indicates crutches would be the best option, but they would still have to go sideways at times. OT informed pt and , PT would be present this AM for further assessment for appropriate AD, they verbalize understanding. OT answered questions to pt and 's satisfaction, informing them of OT POC. Post tx, pt in bed, call light in reach and all needs met. Education OT Patient Education: Correct positioning, Energy conservation, Modified ADL techniques, Progress toward Goal/Update tx plan, Purpose of tx/functional activities, Rehab process Teaching Recipient: Patient Teaching Methods: Discussion Response to Teaching: Verbalize Understanding OT Care Home Goals Care Home Goals Time Frame: Jun 09, 2021 Eating (QC): 6 Oral Hygiene (QC): 6 Toileting Hygiene (QC): 4 Shower/Bathe Self (QC): 4 Upper Body Dressing (QC): 5 Lower Body Dressing (QC): 4 On/Off Footwear (QC): 4 Additional Goals: 1-Demonstrate ADL Tasks, 2-Verbalize Understanding, 3- ImproveStrength/[place] 1=Demonstrate adherence to instructed precautions during ADL tasks. 2=Patient will verbalize/demonstrate understanding of assistive devices/modifications for ADL. 3=Patient will improve strength/tolerance for activity to enable patient to perform ADL's. OT Education/Plan Problem List/Assessment Assessment: Decreased Activ Tolerance, Impaired Funct Balance, Impaired I ADL's, Impaired Self-Care Skills Discharge Recommendations Plan/Recommendations: Continue POC Treatment Plan/Plan of Care Patient would benefit from OT for education, treatment and training to promote independence in ADL's, mobility, safety and/or upper extremity function for ADL's. Plan of Care: ADL Retraining, Functional Mobility, UE Funct Exercise/Act Treatment Duration: Jun 09, 2021 Frequency: 3 times per week (3-5 times per week) Estimated Hrs Per Day: .25 hour per day Agreement: Yes Rehab Potential: Fair Time/GCodes Start Time: 09:40 Stop Time: 09:57 Total Time Billed (hr/min): 17 Billed Treatment Time 1ROVERTO ADDISON OT May 20, 2021 10:20
--- NOTE | 2021-05-20 11:58 | Physical Therapy Evaluation ---
PT Evaluation-General Medical Diagnosis Admission Date May 19, 2021 at 10:47 Medical Diagnosis: ventricular tachycardia, R distal fibular fx Onset Date: May 19, 2021 Therapy Diagnosis Therapy Diagnosis: decreased mobility Height/Weight Height (Feet): 6 Height (Inches): 1.00 Weight (Pounds): 235 Precautions Precautions/Isolations: Fall Prevention, Standard Precautions Weight Bear Status Right Lower Extremity: Right Touch Toe Bearing Left Lower Extremity: Left Weight Bearing/Tolerated Referral Physician: Neida Reason for Referral: Evaluation/Treatment Medical History Current History Pt. had syncopal episode in a parking lot, returned home. Pt. unable to ambulate and EMS called. Social History Home: Single Level Current Living Status: Significant Other Entry Into Home: Stairs Without Railing PT Steps Into Home: 2 Prior Prior Level of Function SCALE: Activities may be completed with or without assistive devices. 5-Ppvijzbwff-nevytfb completes the activity by him/herself with no assistance from a helper. 5-Set-up or Clean-up Assistance-helper sets up or cleans up; patient completes activity. [place] assists only prior to or following the activity. 4-Supervision or Touching Assistance-helper provides verbal cues and/or touching/steadying and/or contact guard assistance as patient completes activity. Assistance may be provided throughout the activity or intermittently. 3-Partial/Moderate Assistance-helper does LESS THAN HALF the effort. [place] lifts, holds or supports trunk or limbs, but provides less than half the effort. 2-Substantial/Maximal Assistance-helper does MORE THAN HALF the effort. [place] lifts or holds trunk or limbs and provides more than half the effort. 7-Hhujkmcol-tgyhpl does ALL the effort. Patient does none of the effort to complete the activity. Or, the assistance of 2 or more helpers is required for the patient to complete the activity. If activity was not attempted, code reason: 7-Patient Refused. 9-Not Applicable-not attempted and the patient did not perform the activity before the current illness, exacerbation or injury. 10-Not Attempted due to Environmental Limitations-(lack of equipment, weather restraints, etc.). 88-Not Attempted due to Medical Conditions or Safety Concerns. Bed Mobility: 6 Transfers (B,C,W/C): 6 Gait: 6 Stairs: 6 Indoor Mobility (Ambulation): Independent Stairs: Independent PT Evaluation-Current Subjective Pt.'s SO present and states he will have to use crutches to be able to go home. Patient has no c/o pain at present time and agrees to therapy. Pt/Family Goals home using crutches. If unable to ambulate with crutches, SO states he will need to go to a skilled nursing until he can. Objective Patient Orientation: Person Attachments: Oxygen, Duong Catheter, IV ROM/Strength ROM Upper Extremities See OT ROM Lower Extremities WFL except focal deficit of R ankle Strength Upper Extremities See OT Strength Lower Extremities Grossly 4/5 L LE, 4/5 R hip and knee Integumentary/Posture Integumentary boot on R LE, drainage at IV in R arm Bowel Incontinence: No Bladder Incontinence: Duong Cath Posture WFL Neuromuscular (Tone, Coordination, Reflexes) diminished Sensory Vision: Wears Glasses Hearing: Impaired Hand Dominance: Right Sensation Right Upper Extremit: Intact Sensation Left Upper Extremity: Intact Sensation Right Lower Extremit: Intact Sensation Left Lower Extremity: Intact Transfers Lying to Sitting/Side of Bed(Q: 3 Sit to Stand (QC): 1 Chair/Odu-lm-Hhmwy Xfer(QC): 1 Gait Does the Patient Walk?: No and Walking Goal IS indicated Balance Sitting Static: Fair Sitting Dynamic: Poor Standing Static: Poor Standing Dynamic: Poor Assessment/Needs Pt. is a 76 y.o. male with R distal fibula fracture and currently TTWB on R LE following syncopal episode. Pt. had poor sitting and standing balance and unable to maintain TTWB on R LE when attempting to ambulate with FWW and during bed to chair transfer. He also had a difficult time following commands, often talking hands of walker and unsure which foot to maintain WB restrictions despite several cues. It is the patient and SO goal for him to use crutches, however at this time he is unsafe even with FWW and may need short term care at nursing facility until safe for mobility. Pt. would benefit from skilled PT to improve mobility and strength to return home. Rehab Potential: Fair PT Customer Data Technician Goals Mcc Goals PT Mcc Goals Time Frame: May 26, 2021 Sit to Lying (QC): 6 Lying-Sitting on Side/Bed(QC): 6 Sit to Stand (QC): 4 Chair/Foa-ls-Toftk Xfer(QC): 4 Walk 10 feet (QC): 4 Walk 50ft with 2 Turns (QC): 4 PT Plan Problem List Problem List: Activity Tolerance, Functional Strength, Safety, Balance, Gait, Transfer, Bed Mobility, ROM Treatment/Plan Treatment Plan: Continue Plan of Care Treatment Plan: Bed Mobility, Concurrent Therapy, Education, Functional Activity Mallika, Functional Strength, Gait, Safety, Therapeutic Exercise, Transfers Treatment Duration: May 26, 2021 Frequency: 6 times per week Estimated Hrs Per Day: .25 hour per day Patient and/or Family Agrees t: Yes Time/GCodes Time In: 1035 Time Out: 1105 Total Billed Treatment Time: 30 Total Billed Treatment 1, EVH 15', FA 15' JOSE EDUARDO NAVARRETE PT May 20, 2021 11:57
--- NOTE | 2021-05-20 12:24 | Consultation - Ortho ---
Consult - Ortho Subjective Date of Exam 05/20/21 Chief Complaint Fracture right distal fibula HPI/Events since last exam Mr. Thomas is a 76-year-old white male who was admitted through the emergency room for arrhythmogenic right ventricular dysplasia. He stated he got lightheaded and fell injuring his right ankle on Saturday but I think it was actually on . He was seen in the emergency room on Saturday morning and x -rays of the ankle did reveal a nondisplaced distal fibula fracture. No other fractures were noted. Patient states he said no previous problems with the ankle. He states it only hurts on the outside of the ankle. He did not injure anything else. Medical, Surgical History Reviewed and no additions or changes Social History Reviewed and no additions or changes Family History Reviewed and no additions or change Review of Systems Reviewed and no additions or changes Allergies: Uncoded Allergies: UNKNOWN CHOLESTEROL MED. (Allergy, Unknown, 02/12/18) Home Meds Reported Medications Tamsulosin HCl (Flomax) 0.4 Mg Cap, 0.4 MG PO DAILY, CAP 05/19/21 Sotalol HCl (Sotalol) 80 Mg Tablet, 40 MG PO BID, TAB TAKES OF 80MG TAB 05/19/21 Multivitamin with Minerals (Multivitamins with Minerals) 1 Each Tablet, 1 EACH PO DAILY, TAB 05/19/21 Antiox #11/Om3/Dha/Epa/Lut/Salvador (Eye Health Adult 50+ Softgel) 1 Each Capsule, 1 EACH PO BID, CAP 05/19/21 Lisinopril (Lisinopril) 40 Mg Tablet, 40 MG PO DAILY, TAB 05/19/21 Hydrochlorothiazide (Hydrochlorothiazide) 25 Mg Tablet, 12.5 MG PO, TAB TAKES OF A 25MG TAB 05/19/21 Cyclobenzaprine HCl (Cyclobenzaprine HCl) 10 Mg Tablet, 10 MG PO HS PRN for MUSCLE SPASMS, TAB 05/19/21 Cyanocobalamin (Vitamin B-12) (Vitamin B-12) 1,000 Mcg Tablet, 1000 MCG PO DAILY, TAB 05/19/21 Atorvastatin Calcium (Atorvastatin Calcium) 80 Mg Tablet, 40 MG PO HS, TAB TAKES OF A 40MG TAB 05/19/21 Aspirin (Aspirin EC) 81 Mg Tablet.dr, 81 MG PO DAILY, TAB 05/19/21 Amlodipine Besylate (Amlodipine Besylate) 5 Mg Tablet, 2.5 MG PO 1200, TAB TAKES OF A 5MG TAB 05/19/21 Allopurinol (Allopurinol) 100 Mg Tablet, 100 MG PO DAILY, TAB 05/19/21 Albuterol Sulfate (PROAIR HFA) 1 Puff Puff, 2 PUFF IH QID PRN for SHORTNESS OF BREATH, EA 05/19/21 Acetaminophen (Tylenol Extra Strength) 500 Mg Tablet, 1000 MG PO Q8H PRN for PAIN-MILD (1-4) OR TEMPATURE, TAB 05/19/21 Ascorbate Calcium (Vitamin C) 500 Mg Tablet, 500 MG PO DAILY, TAB 05/19/21 Discontinued Reported Medications Sotalol HCl (Betapace) 80 Mg Tablet, 80 MG PO, TAB 05/19/21 Objective Exam Constitutional: [] HEENT: [] Neck: [] Cardiovascular: [] Respiratory: [] Gastrointestinal: [] Genitourinary: [] Skin: [] Back/Spine: [] Extremities: [No pain right hip or right knee. No pain over the proximal tibia or fibula. Mild swelling ankle. Bruising around the lateral ankle. Pain over the distal fibula. No pain medially over the medial malleolus. No pain over the Achilles. No pain in the foot. He states he has normal sensation of the foot and toes. Good pulses. Good capillary refill.] Neurologic: [] Psychiatric: [] Hematologic/lymphatic/immunologic: [] Vital Signs Vital Signs Date Time Temp Pulse Resp B/P (MAP) Pulse Ox O2 Delivery O2 Flow Rate FiO2 05/20/21 12:00 73 20 132/88 95 Nasal Cannula 5.00 05/20/21 11:32 36.3 05/20/21 11:00 84 9 97 Nasal Cannula 5.00 05/20/21 10:00 84 23 148/99 92 Nasal Cannula 5.00 05/20/21 09:00 84 13 164/112 93 Nasal Cannula 5.00 05/20/21 08:00 71 20 163/110 93 Nasal Cannula 5.00 05/20/21 08:00 Nasal Cannula 6.00 05/20/21 07:36 36.6 05/20/21 07:00 83 05/20/21 07:00 86 28 173/113 95 Nasal Cannula 5.00 05/20/21 06:08 Nasal Cannula 6.00 05/20/21 06:00 79 20 171/113 96 Nasal Cannula 5.00 05/20/21 05:00 76 15 127/92 93 Nasal Cannula 5.00 05/20/21 04:00 78 22 121/80 91 Nasal Cannula 5.00 05/20/21 04:00 Nasal Cannula 6.00 05/20/21 04:00 36.3 05/20/21 03:00 76 15 145/104 96 Nasal Cannula 5.00 05/20/21 02:00 69 18 123/111 92 Nasal Cannula 5.00 05/20/21 01:00 82 05/20/21 01:00 79 26 163/110 90 Nasal Cannula 5.00 05/20/21 00:00 Nasal Cannula 6.00 05/20/21 00:00 71 18 118/75 99 Nasal Cannula 5.00 05/20/21 00:00 36.0 05/19/21 23:00 70 17 130/78 96 Nasal Cannula 5.00 05/19/21 22:00 66 16 144/86 92 Nasal Cannula 5.00 05/19/21 21:00 65 16 141/105 92 Nasal Cannula 5.00 05/19/21 20:55 66 05/19/21 20:00 63 25 145/93 95 Nasal Cannula 5.00 05/19/21 20:00 36.2 05/19/21 20:00 Nasal Cannula 6.00 05/19/21 19:00 59 16 146/87 96 Nasal Cannula 5.00 05/19/21 19:00 59 05/19/21 18:01 60 121/78 05/19/21 18:00 61 22 127/100 92 Nasal Cannula 5.00 05/19/21 17:17 60 121/78 05/19/21 17:00 121/78 05/19/21 17:00 60 6 86 Nasal Cannula 5.00 05/19/21 16:00 92 High Flow N/C 6.00 05/19/21 15:59 36.1 05/19/21 15:00 59 19 131/80 91 Nasal Cannula 5.00 05/19/21 14:00 61 7 111/71 92 05/19/21 13:00 63 05/19/21 13:00 61 24 114/78 96 05/19/21 12:50 36.6 05/19/21 12:38 77 I & O 05/20/21 07:00 Intake Total 1753 ml Output Total 4725 ml Balance -2972 ml Lab Results Laboratory Tests 05/19/21 13:07: Creatinine 2.05H, Troponin I 7.017*H 05/20/21 05:00: Creatinine 1.54H, White Blood Count 8.3, Red Blood Count 3.64L, Hemoglobin 12.3L , Hematocrit 36L, Mean Corpuscular Volume 100H, Mean Corpuscular Hemoglobin 34, Mean Corpuscular Hemoglobin Concent 34, Red Cell Distribution Width 13.6, Platelet Count 138, Mean Platelet Volume 11.0, Immature Granulocyte % (Auto) 0, Neutrophils (%) (Auto) 73, Lymphocytes (%) (Auto) 16, Monocytes (%) (Auto) 9, Eo sinophils (%) (Auto) 2, Basophils (%) (Auto) 0, Neutrophils # (Auto) 6.1, Lymphocytes # (Auto) 1.3, Monocytes # (Auto) 0.7, Eosinophils # (Auto) 0.1, Basophils # (Auto) 0.0, Immature Granulocyte # (Auto) 0.0, Sodium Level 136, Potassium Level 3.6, Chloride Level 104, Carbon Dioxide Level 18L, Anion Gap 14, Blood Urea Nitrogen 33H, Estimat Glomerular Filtration Rate 47, BUN/Creatinine Ratio 21, Glucose Level 132H, Calcium Level 9.1, Phosphorus Level 3.2, Magnesium Level 1.7, Triglycerides Level 76, Cholesterol Level 102, LDL Cholesterol Direct 48, VLDL Cholesterol 15, HDL Cholesterol 40 Imaging X-rays of the right ankle were reviewed which shows a nondisplaced fracture of the right distal fibula. No widening of the syndesmosis. The mortise is symmetrical.No fracture Medially Assessment and Plan Assessment Nondisplaced fracture right distal fibula Problem List Nondisplaced fracture right distal fibula Plan Treatment options were discussed with the patient. I would recommend no noperative treatment. This is a nondisplaced fracture. Either cast or cam walker. He is fine with the cam walker which was applied yesterday. I would recommend nonweightbearing for approximately 3 weeks and partial weightbearing in the cam walker and then full weightbearing at 6 weeks post injury and then wean from the cam walker as tolerated. Apparently he stated he was too weak to get up with therapy this morning but did stand but did not ambulate. Can remove the boot for skin inspection as well as bathing. Would recommend follow-up as an outpatient in approximately 2 weeks for recheck and repeat x-rays. Final Diagonsis Nondisplaced fracture right distal fibula Level of the visit: Level 3 ТАТЬЯНА SMITH MD May 20, 2021 12:24
[2021-05-20] MEDS: NS IV 1000 ML 1,000 ML IV SCH (13:59)
[2021-05-20] MEDS: ENOXAPARIN 40 MG/0.4 ML (LOVENOX) SYR SC SCH (14:11)
[2021-05-20] MEDS: TAMSULOSIN 0.4 MG (FLOMAX) CAP PO SCH (18:43)
--- NOTE | 2021-05-20 21:14 | Progress Note - Hospitalist ---
Subjective HPI/CC On Admission Date Seen by Provider: May 20, 2021 Time Seen by Provider: 10:30 Subjective/Events-last exam He is feeling better today. He is not having any chest pain. He denies shortness of breath. He is having no palpitations. He has not been up walking yet. Objective Exam Vital Signs Vital Signs Date Time Temp Pulse Resp B/P (MAP) Pulse Ox O2 Delivery O2 Flow Rate FiO2 05/20/21 20:00 Room Air 0.00 05/20/21 20:00 36.7 05/20/21 18:00 70 19 125/87 96 Capillary Refill : Less Than 3 Seconds General Appearance: No Apparent Distress, Obese Respiratory: Lungs Clear, No Respiratory Distress Cardiovascular: Regular Rate, Rhythm, No Murmur Gastrointestinal: Normal Bowel Sounds, Soft Extremity: Normal Inspection, No Pedal Edema Neurologic/Psychiatric: Alert, Normal Mood/Affect Skin: Normal Color, Warm/Dry Results/Procedures Lab Laboratory Tests 05/20/21 05:00 Patient resulted labs reviewed. Assessment/Plan Assessment and Plan Assess & Plan/Chief Complaint Ventricular tachycardia NSTEMI Cardiology assisting s/p cardioversion Amiodarone discontinued Started on Lidocaine Started on Meloxitine Left heart cath without significant CAD Fibula fracture Ortho consulted Boot in place PT/OT IRF evaluation NEVAEH IV fluids BPH Urinary retention Duong catheter in place T2DM Sliding scale insulin DVT prophylaxis: Lovenox Cardiogenic shock, resolved Critical Care Critically Ill Patient Diagnosis/Problems Diagnosis/Problems (1) Ventricular tachycardia Status: Acute (2) Cardiogenic shock Status: Acute (3) Acute kidney injury Status: Acute (4) Right fibular fracture Status: Acute Clinical Quality Measures AMI/AHF: ASA po Prior to arrival: MEKHI Alexander MD May 20, 2021 21:14
[2021-05-20] MEDS: inSUlin ASPART (NovoLOG) 1 UNIT/0.01 ML (CHARGE PER UNIT) SC SCH (21:30)
[2021-05-21 04:56] LABS: POTASSIUM 3.6 MMOL/L (3.6-5.0)
[2021-05-21 05:02] LABS: CREATININE SERUM 1.05 MG/DL (0.60-1.30); PHOSPHORUS 2.4 MG/DL (2.3-4.7)
[2021-05-21 05:04] LABS: MAGNESIUM 1.5 MG/DL (1.6-2.4)
[2021-05-21] MEDS: MEXILETINE 150 MG (MEXITIL) CAPSULE PO SCH ×3 (05:16→21:18)
[2021-05-21] MEDS: POTASSIUM CL 10MEQ/50ML IVPB 50 ML IV SCH (05:35)
[2021-05-21] MEDS: MAGNESIUM 1 GM/100 ML IVPB 100 ML IV SCH ×3 (05:35→06:42)
[2021-05-21] MEDS: KCL 20 MEQ TAB (K-DUR) PO SCH (05:43)
[2021-05-21] MEDS: inSUlin ASPART (NovoLOG) 1 UNIT/0.01 ML (CHARGE PER UNIT) SC SCH ×4 (08:18→21:16)
--- NOTE | 2021-05-21 08:35 | Cardiology Progress Note ---
Progress Note-Cardiology Events since last exam Date Seen by Provider: May 21, 2021 Time Seen by Provider: 08:30 Events since last exam I am following him for ventricular tachycardia in the setting of arrhythmogenic right ventricular dysplasia. Since adjusting his medication, he has not had any further ventricular tachycardia. He denies any further lightheadedness or syncope. He denies chest pain, dyspnea, palpitations, or ankle edema. He was seen by orthopedic surgery who recommended nonsurgical treatment of his right distal fibular fracture. This would mean on weightbearing for at least the next couple of weeks. He reports he has 1 short [address] to get into his house but no stairs inside his nose. Certain portions of this document may have been dictated utilizing voice recognition technology. Inherent to this technology, typographical and grammatical errors may exist. As much as I am diligent to identify and correct these mistakes, some errors may remain in the document. Vitals Last set of Vitals Signs Vital Signs 05/21/21 05/21/21 05/21/21 07:00 07:34 07:42 Temp 36.2 Pulse 73 Resp 20 B/P (MAP) 146/80 Pulse Ox 95 O2 Delivery Nasal Cannula O2 Flow Rate 2.00 Labs Labs Laboratory Tests 05/21/21 03:51 Exam Vital Signs Vital Signs Date Time Temp Pulse Resp B/P (MAP) Pulse Ox O2 Delivery O2 Flow Rate FiO2 05/21/21 07:42 Nasal Cannula 2.00 05/21/21 07:34 36.2 05/21/21 07:00 73 05/21/21 07:00 20 146/80 95 Physical Exam General: Alert. No acute distress. Eye: No xanthelasma. HENT: Normocephalic. Neck: Jugular venous pressure does not appear elevated. Respiratory: Lungs are clear to auscultation. Respirations are non-labored. Breath sounds are equal. Symmetrical chest wall expansion. Cardiovascular: Normal rate. Regular rhythm. No murmur. No gallop. No edema. Gastrointestinal: Soft. Normal bowel sounds. Skin: Warm. Dry. Neurologic: Alert and oriented to person, place, time. Cranial nerves 3-11 grossly intact. Psychiatric: Cooperative. Appropriate mood & affect. Labs Laboratory Tests Test 05/20/21 21:44 05/21/21 03:51 05/21/21 08:12 Range/Units Glucometer 126 H 132 H 70-110 MG/DL Sodium Level 135 135-145 MMOL/L Potassium Level 3.6 3.6-5.0 MMOL/L Chloride Level 104 98-107 MMOL/L Carbon Dioxide Level 18 L 21-32 MMOL/L Anion Gap 13 5-14 MMOL/L Blood Urea Nitrogen 25 H 7-18 MG/DL Creatinine 1.05 0.60-1.30 MG/DL Estimat Glomerular Filtration Rate 74 BUN/Creatinine Ratio 24 Glucose Level 126 H 70-105 MG/DL Calcium Level 9.0 8.5-10.1 MG/DL Phosphorus Level 2.4 2.3-4.7 MG/DL Magnesium Level 1.5 L 1.6-2.4 MG/DL Diagnosis/Problems Diagnosis/Problems (1) Ventricular tachycardia Status: Acute Assessment & Plan: He was initially treated with intravenous amiodarone but remained in ventricular tachycardia and then developed hypotension. On the advice of an water maintenance supervisor at [facility], I treated the patient with 24 hours of intravenous lidocaine while he was started on mexiletine. The lidocaine has completed. He has not had any further ventricular tachycardia. With the assistance of the [employer] device rep and the water maintenance supervisor, his device has been reprogrammed to lower the ventricular tachycardia detection rate to 136 bpm and we have adjusted the treatment protocols for the ventricular tachycardia. I will plan to see the patient in my office in 1-2 weeks following discharge then I can coordinate getting the patient in to see an water maintenance supervisor in the [place] area in the next few weeks. He may need a complex ventricular tachycardia ablation. (2) Arrhythmogenic right ventricular dysplasia Status: Acute Assessment & Plan: He has a known history of arrhythmogenic right ventricular dysplasia. He has a biventricular dual-chamber defibrillator in place. We will proceed as above. (3) Elevated troponin Status: Acute Assessment & Plan: His troponin was quite elevated even prior to the cardioversion. However, his cardiac catheterization did not show any sig nificant coronary artery disease. This was a probable type II non-ST elevation myocardial infarction possibly related to hypotension that occurred with the ventricular tachycardia resulting in supply/demand mismatch. He should continue on aspirin and atorvastatin. He is on sotalol as a beta-maite. (4) Primary hypertension Assessment & Plan: I initially held his antihypertensive medication due to the low blood pressure at the time of admission. His blood pressures are now becoming elevated. I restarted his amlodipine 2.5 mg daily on 05/20. His renal function has improved. I will restart lisinopril but at a lower dose. (5) Mixed hyperlipidemia Assessment & Plan: Continues atorvastatin. (6) Acute kidney injury Status: Acute Assessment & Plan: His renal function has improved. This may have in part been brought on by significant hypotension that occurred with the ventricular tachycardia. I will restart his lisinopril for hypertension but at half of his home dose. (7) Right fibular fracture Status: Acute Assessment & Plan: As above, orthopedic surgery recommends nonsurgical therapy. The patient may be too weak to manage at home. The hospitalist has put in an order for inpatient rehab evaluation. JOSEFINA JUNE JR, MD May 21, 2021 08:35
[2021-05-21] MEDS ORDERED: amLODIPine 5 MG (NORVASC) TAB PO SCH (09:00)
[2021-05-21] MEDS ORDERED: amLODIPine 2.5MG (NORVASC) TAB PO SCH (09:00)
[2021-05-21] MEDS: polyethylene glycoL POWDER 17 GM (MIRALAX) PACK PO PRN (09:07)
[2021-05-21] MEDS: amLODIPine 2.5MG (NORVASC) TAB PO SCH (09:07)
[2021-05-21] MEDS: SOTALOL 80 MG (BETAPACE) TAB PO SCH ×2 (09:07→21:18)
[2021-05-21] MEDS: ASPIRIN E.C. 81 MG (ECOTRIN) TAB PO SCH (09:07)
[2021-05-21] MEDS: lisINopril 20 MG (PRINIVIL) TABLET PO SCH (09:13)
--- NOTE | 2021-05-21 09:29 | Physical Therapy Daily Note ---
PT Daily Note-Current Subjective Pt. in bed, agrees to therapy. States he is feeling better than yesterday. Mental Status Patient Orientation: Person, Place, Time, Situation Attachments: Oxygen, Duong Catheter Transfers SCALE: Activities may be completed with or without assistive devices. 0-Datkgdhngx-ijltxcm completes the activity by him/herself with no assistance from a helper. 5-Set-up or Clean-up Assistance-helper sets up or cleans up; patient completes activity. [place] assists only prior to or following the activity. 4-Supervision or Touching Assistance-helper provides verbal cues and/or touching/steadying and/or contact guard assistance as patient completes activity. Assistance may be provided throughout the activity or intermittently. 3-Partial/Moderate Assistance-helper does LESS THAN HALF the effort. [place] lifts, holds or supports trunk or limbs, but provides less than half the effort. 2-Substantial/Maximal Assistance-helper does MORE THAN HALF the effort. [place] lifts or holds trunk or limbs and provides more than half the effort. 8-Xsmfrqlbi-fmxiws does ALL the effort. Patient does none of the effort to complete the activity. Or, the assistance of 2 or more helpers is required for the patient to complete the activity. If activity was not attempted, code reason: 7-Patient Refused. 9-Not Applicable-not attempted and the patient did not perform the activity befo re the current illness, exacerbation or injury. 10-Not Attempted due to Environmental Limitations-(lack of equipment, weather re straints, etc.). 88-Not Attempted due to Medical Conditions or Safety Concerns. Lying to Sitting/Side of Bed(Q: 4 Sit to Stand (QC): 3 Chair/Foa-ss-Copvb Xfer(QC): 1 min A x 2 for bed to chair transfer Weight Bearing Right Lower Extremity: Right Non Weight Bearing Left Lower Extremity: Left Weight Bearing/Tolerated Treatments transfers Assessment Current Status: Good Progress, Fair Progress Pt. had improved ability to transfer today, completed bed mobility with SBA today. He was able to stand with min/mod A and maintain NWB on R with initial transfer. Pt. took 2 steps forward with FWW and maintaining NWB, however he had difficulty with pivoting and retro ambulation and unable to maintain NWB during that aspect of the transfer. Pt. up in bedside chair post session with call light and all needs met, O2 increased to 4L post transfer per nursing due to drop in O2 sats. Overall improvement with mobility today, however not safe to attempt use of crutches at this time and still has difficulty maintaining WB status. PT Senior Living Goals Seed Corn Manager Production Goals PT Senior Living Goals Time Frame: May 26, 2021 Sit to Lying (QC): 6 Lying-Sitting on Side/Bed(QC): 6 Sit to Stand (QC): 4 Chair/Elt-bc-Jrttm Xfer(QC): 4 Walk 10 feet (QC): 4 Walk 50ft with 2 Turns (QC): 4 PT Plan Treatment/Plan Treatment Plan: Continue Plan of Care Treatment Plan: Bed Mobility, Concurrent Therapy, Education, Functional Activity Mallika, Functional Strength, Gait, Safety, Therapeutic Exercise, Transfers Treatment Duration: May 26, 2021 Frequency: 6 times per week Estimated Hrs Per Day: .25 hour per day Patient and/or Family Agrees t: Yes Time/GCodes Time In: 903 Time Out: 926 Total Billed Treatment Time: 23 Total Billed Treatment 1, FA 23' JOSE EDUARDO NAVARRETE PT May 21, 2021 09:29
--- NOTE | 2021-05-21 14:19 | Progress Note ---
Subjective Subjective Date Seen by Provider: May 21, 2021 Time Seen by Provider: 09:20 Patient feels well this morning. His leg pain has improved from yesterday and he was able to get up to his chair without too much pain this morning. He denies any nausea/vomiting, sweats/chills, chest pain or palpitations. Review of Systems General: No Chills, No Night Sweats Pulmonary: No Dyspnea Cardiovascular: No: Chest Pain, Palpitations Gastrointestinal: No: Nausea, Vomiting Objective Exam Vital Signs Vital Signs Date Time Temp Pulse Resp B/P (MAP) Pulse Ox O2 Delivery O2 Flow Rate FiO2 05/21/21 13:00 60 16 125/73 99 Nasal Cannula 2.00 05/21/21 13:00 61 05/21/21 12:00 70 28 79/59 95 Nasal Cannula 2.00 05/21/21 12:00 Nasal Cannula 2.00 05/21/21 11:36 35.8 05/21/21 11:00 80 20 138/87 94 Nasal Cannula 2.00 05/21/21 10:00 80 17 132/90 98 Nasal Cannula 2.00 05/21/21 09:00 86 20 146/101 95 Nasal Cannula 2.00 05/21/21 08:00 67 21 158/98 95 Nasal Cannula 2.00 05/21/21 08:00 Nasal Cannula 2.00 05/21/21 07:42 Nasal Cannula 2.00 05/21/21 07:34 36.2 05/21/21 07:00 73 05/21/21 07:00 69 20 146/80 95 Nasal Cannula 2.00 05/21/21 06:00 74 21 163/98 97 Nasal Cannula 2.00 05/21/21 05:00 74 21 172/93 98 Nasal Cannula 2.00 05/21/21 04:00 36.2 05/21/21 04:00 77 25 153/93 96 Nasal Cannula 2.00 05/21/21 04:00 Nasal Cannula 2.00 05/21/21 03:00 77 21 144/97 92 Nasal Cannula 2.00 05/21/21 02:00 79 25 118/71 93 Nasal Cannula 2.00 05/21/21 01:00 80 22 130/85 93 Nasal Cannula 2.00 05/21/21 01:00 83 05/21/21 00:00 Nasal Cannula 2.00 05/21/21 00:00 73 21 149/93 96 Nasal Cannula 2.00 05/21/21 00:00 36.5 05/20/21 23:21 72 05/20/21 23:00 73 13 126/84 95 Nasal Cannula 2.00 05/20/21 22:23 Nasal Cannula 2.00 05/20/21 22:00 73 21 132/84 95 Room Air 05/20/21 21:21 78 05/20/21 21:00 79 17 116/86 94 Room Air 05/20/21 20:00 68 20 142/97 97 Room Air 05/20/21 20:00 Room Air 0.00 05/20/21 20:00 Room Air 05/20/21 20:00 36.7 05/20/21 19:00 80 05/20/21 19:00 76 19 149/85 94 Nasal Cannula 5.00 05/20/21 18:00 70 19 125/87 96 Nasal Cannula 5.00 05/20/21 17:09 11 92 Nasal Cannula 5.00 05/20/21 17:00 87 18 146/89 89 Nasal Cannula 5.00 05/20/21 16:00 36.2 05/20/21 16:00 Nasal Cannula 6.00 05/20/21 16:00 77 7 150/103 95 Nasal Cannula 5.00 05/20/21 15:00 71 18 140/101 94 Nasal Cannula 5.00 I & O 05/21/21 07:00 Intake Total 2600 ml Output Total 3170 ml Balance -570 ml General Appearance: No Apparent Distress, Obese HEENT: PERRL/EOMI Neck: Normal Inspection Respiratory: Lungs Clear, No Respiratory Distress Cardiovascular: Regular Rate, Rhythm, No Murmur Gastrointestinal: Normal Bowel Sounds, Soft Back: Normal Inspection Extremity: Normal Inspection, No Pedal Edema Neurologic/Psychiatric: Alert, Oriented x3 Skin: Normal Color Results Lab Laboratory Tests 05/20/21 21:44: Glucometer 126H 05/21/21 03:51: Sodium Level 135, Potassium Level 3.6, Chloride Level 104, Carbon Dioxide Level 18L, Anion Gap 13, Blood Urea Nitrogen 25H, Creatinine 1.05, Estimat Glomerular Filtration Rate 74, BUN/Creatinine Ratio 24, Glucose Level 126H, Calcium Level 9.0, Phosphorus Level 2.4, Magnesium Level 1.5L 05/21/21 08:12: Glucometer 132H 05/21/21 10:14: Glucometer 199H Microbiology 05/19/21 MRSA Screen - Final, Complete MRSA not isolated Assessment/Plan Assessment/Plan Assessment and Plan Ventricular tachycardia NSTEMI Cardiology assisting s/p cardioversion Continue Mexiletine, Sotalol Left heart cath without significant CAD Fibula fracture Ortho consulted Boot in place PT/OT Inpatient rehab evaluation NEVAEH D/C fluids Creatinine 1.05 today BPH Urinary retention Duong catheter in place T2DM Sliding scale insulin DVT prophylaxis: Lovenox Cardiogenic shock, resolved Problems: (1) Cardiogenic shock (2) Ventricular tachycardia (3) Arrhythmogenic right ventricular dysplasia (4) Acute kidney injury Clinical Quality Measures AMI/AHF: ASA po Prior to arrival: No Supervisory-Addendum Brief Verification & Attestation Participated in pt care: history, MDM, physical Personally performed: exam, history, MDM, supervision of care Care discussed with: Medical Student Procedures: n/a Results interpretation: Verified all documentation A medical student performed and documented this service in my presence. I reviewed and verified all information documented by the medical student and made modifications to such information, when appropriate. I personally performed the physical exam and medical decision making. AMILCAR DURAN May 21, 2021 14:19 MEKHI GIFFORD MD May 21, 2021 20:23
[2021-05-21] MEDS: ENOXAPARIN 40 MG/0.4 ML (LOVENOX) SYR SC SCH (14:47)
[2021-05-21] MEDS: TAMSULOSIN 0.4 MG (FLOMAX) CAP PO SCH (17:55)
[2021-05-22 05:30] LABS: POTASSIUM 3.8 MMOL/L (3.6-5.0)
[2021-05-22 05:31] LABS: CALCIUM 8.9 MG/DL (8.5-10.1)
[2021-05-22] MEDS: inSUlin ASPART (NovoLOG) 1 UNIT/0.01 ML (CHARGE PER UNIT) SC SCH ×4 (05:32→20:11)
[2021-05-22] MEDS: POTASSIUM CL 10MEQ/50ML IVPB 50 ML IV SCH (05:34)
[2021-05-22] MEDS: KCL 20 MEQ TAB (K-DUR) PO SCH (05:34)
[2021-05-22 05:35] LABS: PHOSPHORUS 3.1 MG/DL (2.3-4.7)
[2021-05-22 05:36] LABS: CREATININE SERUM 1.02 MG/DL (0.60-1.30)
[2021-05-22 05:38] LABS: MAGNESIUM 1.6 MG/DL (1.6-2.4)
[2021-05-22] MEDS: MAGNESIUM 1 GM/100 ML IVPB 100 ML IV SCH ×3 (05:53→06:56)
[2021-05-22] MEDS: MEXILETINE 150 MG (MEXITIL) CAPSULE PO SCH ×3 (05:57→20:46)
[2021-05-22] MEDS: SOTALOL 80 MG (BETAPACE) TAB PO SCH ×2 (08:14→20:46)
[2021-05-22] MEDS: lisINopril 20 MG (PRINIVIL) TABLET PO SCH (08:14)
[2021-05-22] MEDS: amLODIPine 2.5MG (NORVASC) TAB PO SCH (08:14)
[2021-05-22] MEDS: ASPIRIN E.C. 81 MG (ECOTRIN) TAB PO SCH (08:15)
[2021-05-22] MEDS: ACETAMINOPHEN 325 MG TABLET PO PRN ×2 (10:36→22:05)
--- NOTE | 2021-05-22 11:45 | Physical Therapy Daily Note ---
PT Daily Note-Current Subjective Patient agrees to PT. Patient reports he is unable to use FWW in his home due to home size. Mental Status Patient Orientation: Person, Time, Situation Attachments: Duong Catheter Transfers SCALE: Activities may be completed with or without assistive devices. 9-Htjktdmndx-blygxml completes the activity by him/herself with no assistance from a helper. 5-Set-up or Clean-up Assistance-helper sets up or cleans up; patient completes activity. [place] assists only prior to or following the activity. 4-Supervision or Touching Assistance-helper provides verbal cues and/or touching/steadying and/or contact guard assistance as patient completes activity. Assistance may be provided throughout the activity or intermittently. 3-Partial/Moderate Assistance-helper does LESS THAN HALF the effort. [place] lifts, holds or supports trunk or limbs, but provides less than half the effort. 2-Substantial/Maximal Assistance-helper does MORE THAN HALF the effort. [place] lifts or holds trunk or limbs and provides more than half the effort. 9-Moyvhvteg-olwqsv does ALL the effort. Patient does none of the effort to complete the activity. Or, the assistance of 2 or more helpers is required for the patient to complete the activity. If activity was not attempted, code reason: 7-Patient Refused. 9-Not Applicable-not attempted and the patient did not perform the activity be fore the current illness, exacerbation or injury. 10-Not Attempted due to Environmental Limitations-(lack of equipment, weather restraints, etc.). 88-Not Attempted due to Medical Conditions or Safety Concerns. Lying to Sitting/Side of Bed(Q: 4 Sit to Stand (QC): 2 Chair/Ovt-ot-Qysdi Xfer(QC): 2 Weight Bearing Right Lower Extremity: Right Non Weight Bearing Left Lower Extremity: Left Weight Bearing/Tolerated Gait Training Distance: 3 "hops" Walk 10 feet (QC): 88 Walk 50 ft with 2 Turns(QC): 88 Gait Assistive Device: FWW unable to maintain NWB right LE with CAM boot in place Exercises Seated Therapy Exercises: Long arc quads (8) Seated Reps: 8 (x 2 with patient ceasing treatment due to fatigue) Assessment Patient tolerates minimal activity and ceases treatment due to fatigue. From a PT standpoint, patient is unable to tolerate extensive PT and may require extended care facility to allow proper healing. Patient reports he is unable to utilize FWW in his home due to the size of the home. PT Radio Personality Goals Radio Personality Goals PT Radio Personality Goals Time Frame: May 26, 2021 Sit to Lying (QC): 6 Lying-Sitting on Side/Bed(QC): 6 Sit to Stand (QC): 4 Chair/Xmu-ww-Mhbjb Xfer(QC): 4 Walk 10 feet (QC): 4 Walk 50ft with 2 Turns (QC): 4 PT Plan Treatment/Plan Treatment Plan: Continue Plan of Care Treatment Plan: Bed Mobility, Concurrent Therapy, Education, Functional Act ivity Mallika, Functional Strength, Gait, Safety, Therapeutic Exercise, Transfers Treatment Duration: May 26, 2021 Frequency: 6 times per week Estimated Hrs Per Day: .25 hour per day Patient and/or Family Agrees t: Yes Time/GCodes Time In: 1100 Time Out: 1115 Total Billed Treatment Time: 15 Total Billed Treatment 1 visit FA 15 min MATT MUNGUIA PT May 22, 2021 11:45
[2021-05-22 12:00] VITALS: BP 152/91
--- NOTE | 2021-05-22 12:02 | Progress Note - Hospitalist ---
Subjective HPI/CC On Admission Date Seen by Provider: May 22, 2021 Time Seen by Provider: 10:00 Subjective/Events-last exam Pt reports doing well. Pain in leg but improved with Tylenol. Discussed discharge plan. He believes he can go home at this level but his friend who lives with him does not feel she can care for him at this level. Informed him we would await PT evaluation from today to decided safest plan. Objective Exam Vital Signs Vital Signs Date Time Temp Pulse Resp B/P (MAP) Pulse Ox O2 Delivery O2 Flow Rate FiO2 05/22/21 08:14 63 05/22/21 08:00 36.2 16 159/90 97 Nasal Cannula 1.00 Capillary Refill : Less Than 3 Seconds General Appearance: No Apparent Distress, WD/WN Respiratory: Lungs Clear, No Respiratory Distress Cardiovascular: Regular Rate, Rhythm, No Murmur Neurologic/Psychiatric: Alert, Oriented x3 Results/Procedures Lab Laboratory Tests 05/22/21 04:57 Patient resulted labs reviewed. Assessment/Plan Assessment and Plan Assess & Plan/Chief Complaint Ventricular tachycardia NSTEMI Cardiology assisting s/p cardioversion Continue Mexiletine, Sotalol Left heart cath without significant CAD Fibula fracture Ortho consulted Boot in place PT/OT Inpatient rehab evaluation Nonweight bearing status on right leg- has difficulty maintaining NWB BPH Urinary retention Continue Flomax T2DM Sliding scale insulin DVT prophylaxis: Lovenox Cardiogenic shock, resolved Brett- resolved Critical Care Critically Ill Patient Clinical Quality Measures AMI/AHF: ASA po Prior to arrival: JONATHAN Velazquez MD May 22, 2021 12:02
--- NOTE | 2021-05-22 12:03 | Occupational Ther Daily Note ---
OT Current Status-Daily Note Subjective Pt alert, lying in bed. Pt c/o pain, reported to nrsg. Nrsg brought pain meds. Pt would not complete OOB tasks due to pain in R foot. Mental Status/Objective Patient Orientation: Person, Place, Time, Situation Attachments: IV ADL-Treatment Therapy Code Descriptions/Definitions Functional Page Measure: 0=Not Assessed/NA 4=Minimal Assistance 1=Total Assistance 5=Supervision or Setup 2=Maximal Assistance 6=Modified Page 3=Moderate Assistance 7=Complete IndependenceSCALE: Activities may be completed with or without assistive devices. 5-Jyswbykzxv-ekghubt completes the activity by him/herself with no assistance from a helper. 5-Set-up or Clean-up Assistance-helper sets up or cleans up; patient completes activity. [place] assists only prior to or following the activity. 4-Supervision or Touching Assistance-helper provides verbal cues and/or touching/steadying and/or contact guard assistance as patient completes activity. Assistance may be provided throughout the activity or intermittently. 3-Partial/Moderate Assistance-helper does LESS THAN HALF the effort. [place] lifts, holds or supports trunk or limbs, but provides less than half the effort. 2-Substantial/Maximal Assistance-helper does MORE THAN HALF the effort. [place] lifts or holds trunk or limbs and provides more than half the effort. 4-Fojhlwksi-ejmrel does ALL the effort. Patient does none of the effort to complete the activity. Or, the assistance of 2 or more helpers is required for the patient to complete the activity. If activity was not attempted, code reason: 7-Patient Refused. 9-Not Applicable-not attempted and the patient did not perform the activity before the current illness, exacerbation or injury. 10-Not Attempted due to Environmental Limitations-(lack of equipment, weather restraints, etc.). 88-Not Attempted due to Medical Conditions or Safety Concerns. Oral Hygiene (QC): 5 (Water brought to pt then pt completed own set up and oral care. ) Other Treatment Pt completed 3 B UE exercises 3 sets 10 reps. Shldr flex, horizontal shldr abd/add, front punches. Pt demonstrated uncoordinated movement with B UE during exercises. R UE lagged behind L UE with movement. After therapy, pt lying in bed with call light/phone in reach. All needs met in room. OT Detention Goals Detention Goals Time Frame: Jun 09, 2021 Eating (QC): 6 Oral Hygiene (QC): 6 Toileting Hygiene (QC): 4 Shower/Bathe Self (QC): 4 Upper Body Dressing (QC): 5 Lower Body Dressing (QC): 4 On/Off Footwear (QC): 4 Additional Goals: 1-Demonstrate ADL Tasks, 2-Verbalize Understanding, 3- ImproveStrength/M[place]ika 1=Demonstrate adherence to instructed precautions during ADL tasks. 2=Patient will verbalize/demonstrate understanding of assistive devices/modifications for ADL. 3=Patient will improve strength/tolerance for activity to enable patient to perform ADL's. OT Education/Plan Problem List/Assessment Assessment: Decreased Activ Tolerance, Decreased UE Strength, Impaired Coordination, Impaired Self-Care Skills Discharge Recommendations Plan/Recommendations: Continue POC Treatment Plan/Plan of Care Patient would benefit from OT for education, treatment and training to promote independence in ADL's, mobility, safety and/or upper extremity function for ADL's. Plan of Care: ADL Retraining, Functional Mobility, UE Funct Exercise/Act Treatment Duration: Jun 09, 2021 Frequency: 3 times per week (3-5 times per week) Estimated Hrs Per Day: .25 hour per day Agreement: Yes Rehab Potential: Fair Time/GCodes Start Time: 10:25 Stop Time: 10:42 Total Time Billed (hr/min): 17 Billed Treatment Time 1 visit-EX 1 (17 min) ASHLI KONG May 22, 2021 12:03
[2021-05-22] MEDS: ENOXAPARIN 40 MG/0.4 ML (LOVENOX) SYR SC SCH (13:27)
[2021-05-22] MEDS: polyethylene glycoL POWDER 17 GM (MIRALAX) PACK PO PRN ×2 (13:37→20:46)
[2021-05-22 15:54] VITALS: BP 155/93
--- NOTE | 2021-05-22 16:29 | Cardiology Progress Note ---
Progress Note-Cardiology Events since last exam Date Seen by Provider: May 22, 2021 Time Seen by Provider: 14:15 Events since last exam I am following him for ventricular tachycardia. He is now on the medical floor. He has been getting out of bed with the assistance of staff but has not attempted to ambulate since he is supposed to be nonweightbearing on his right foot. He may be transferred to inpatient rehab. He denies recurrent lightheadedness or syncope. He denies chest pain, dyspnea at rest, palpi tations, or ankle edema. Certain portions of this document may have been dictated utilizing voice r ecognition technology. Inherent to this technology, typographical and grammatical errors may exist. As much as I am diligent to identify and correct these mistakes, some errors may remain in the document. Vitals Last set of Vitals Signs Vital Signs 05/22/21 15:54 Temp 36.1 Pulse 68 Resp 18 B/P (MAP) 155/93 (113) Pulse Ox 95 O2 Delivery Room Air Labs Labs Laboratory Tests 05/22/21 04:57 Exam Vital Signs Vital Signs Date Time Temp Pulse Resp B/P (MAP) Pulse Ox O2 Delivery O2 Flow Rate FiO2 05/22/21 15:54 36.1 68 18 155/93 (113) 95 Room Air 05/22/21 08:00 1.00 Physical Exam General: Alert. No acute distress. Eye: No xanthelasma. HENT: Normocephalic. Neck: Jugular venous pressure does not appear elevated. Respiratory: Lungs are clear to auscultation. Respirations are non-labored. Breath sounds are equal. Symmetrical chest wall expansion. Cardiovascular: Normal rate. Regular rhythm. No murmur. No gallop. No edema. Gastrointestinal: Soft. Normal bowel sounds. Musculoskeletal: Right foot is in boot. Skin: Warm. Dry. Neurologic: Alert and oriented to person, place, time. Cranial nerves 3-11 grossly intact. Psychiatric: Cooperative. Appropriate mood & affect. Labs Laboratory Tests Test 05/21/21 21:06 05/22/21 04:57 05/22/21 11:51 Range/Units Glucometer 140 H 134 H 70-110 MG/DL Sodium Level 136 135-145 MMOL/L Potassium Level 3.8 3.6-5.0 MMOL/L Chloride Level 106 98-107 MMOL/L Carbon Dioxide Level 19 L 21-32 MMOL/L Anion Gap 11 5-14 MMOL/L Blood Urea Nitrogen 22 H 7-18 MG/DL Creatinine 1.02 0.60-1.30 MG/DL Estimat Glomerular Filtration Rate 77 BUN/Creatinine Ratio 22 Glucose Level 132 H 70-105 MG/DL Calcium Level 8.9 8.5-10.1 MG/DL Phosphorus Level 3.1 2.3-4.7 MG/DL Magnesium Level 1.6 1.6-2.4 MG/DL Diagnosis/Problems Diagnosis/Problems (1) Ventricular tachycardia Status: Acute Assessment & Plan: He has not had any recurrent ventricular tachycardia since his cardioversion that was done on the day of admission. On the advice of an wheel fitter at [facility], I treated the patient with 24 hours of intravenous lidocaine while he was started on mexiletine. With the assistance of the [employer] device rep and the wheel fitter, his device has been reprogrammed to lower the ventricular tachycardia detection rate to 136 bpm and we have adjusted the treatment protocols for the ventricular tachycardia. I will plan to see the patient in my office in 1-2 weeks following discharge then I can coordinate getting the patient in to see an electrophy siologist in the [place] area in the next few weeks. He may need a complex ventricular tachycardia ablation. (2) Arrhythmogenic right ventricular dysplasia Status: Acute Assessment & Plan: He has a known history of arrhythmogenic right ventricular dysplasia. He has a biventricular dual-chamber defibrillator in place. We will proceed as above. (3) Primary hypertension Assessment & Plan: I initially held his antihypertensive medication due to the low blood pressure at the time of admission. His blood pressures are now becoming elevated. I restarted his amlodipine 2.5 mg daily on 05/20. His renal function has improved. I restarted his lisinopril but his blood pressures remai n elevated. I will increase lisinopril to his previous home dose. (4) Mixed hyperlipidemia Assessment & Plan: Continues atorvastatin. (5) Elevated troponin Status: Acute Assessment & Plan: His troponin was quite elevated even prior to the cardioversion. However, his cardiac catheterization did not show any significant coronary artery disease. This was a probable type II non-ST eleva tion myocardial infarction possibly related to hypotension that occurred with the ventricular tachycardia resulting in supply/demand mismatch. He should continue on aspirin and atorvastatin. He is on sotalol as a beta-maite. (6) Acute kidney injury Status: Acute Assessment & Plan: His renal function has improved. This may have in part been brought on by significant hypotension that occurred with the ventricular tachycardia. (7) Right fibular fracture Status: Acute Assessment & Plan: As above, orthopedic surgery recommends nonsurgical therapy. The patient may be too weak to manage at home. The hospitalist has put in an order for inpatient rehab evaluation. JOSEFINA JUNE JR, MD May 22, 2021 16:29
[2021-05-22] MEDS ORDERED: lisINopril 20 MG (PRINIVIL) TABLET PO NR (17:00)
[2021-05-22] MEDS: TAMSULOSIN 0.4 MG (FLOMAX) CAP PO SCH (17:06)
[2021-05-22 19:55] VITALS: BP 126/79
[2021-05-22] MEDS: MELATONIN 3 MG TABLET PO PRN (20:47)
[2021-05-23] VITALS (7 sets, daily range): BP systolic 125–164; BP diastolic 76–104
[2021-05-23] MEDS: inSUlin ASPART (NovoLOG) 1 UNIT/0.01 ML (CHARGE PER UNIT) SC SCH ×4 (05:33→21:31)
[2021-05-23] MEDS: MEXILETINE 150 MG (MEXITIL) CAPSULE PO SCH ×3 (05:55→21:36)
[2021-05-23 06:26] LABS: POTASSIUM 4.2 MMOL/L (3.6-5.0)
[2021-05-23 06:28] LABS: CALCIUM 8.8 MG/DL (8.5-10.1)
[2021-05-23 06:32] LABS: CREATININE SERUM 0.97 MG/DL (0.60-1.30); PHOSPHORUS 3.8 MG/DL (2.3-4.7)
[2021-05-23] MEDS: POTASSIUM CL 10MEQ/50ML IVPB 50 ML IV SCH (06:33)
[2021-05-23] MEDS: KCL 20 MEQ TAB (K-DUR) PO SCH (06:34)
[2021-05-23 06:35] LABS: MAGNESIUM 1.8 MG/DL (1.6-2.4)
[2021-05-23] MEDS: MAGNESIUM 1 GM/100 ML IVPB 100 ML IV SCH (06:36)
[2021-05-23] MEDS: amLODIPine 2.5MG (NORVASC) TAB PO SCH (08:48)
[2021-05-23] MEDS: lisINopril 20 MG (PRINIVIL) TABLET PO SCH (08:50)
[2021-05-23] MEDS: SOTALOL 80 MG (BETAPACE) TAB PO SCH ×2 (08:51→21:35)
[2021-05-23] MEDS: ASPIRIN E.C. 81 MG (ECOTRIN) TAB PO SCH (08:51)
[2021-05-23] MEDS: ACETAMINOPHEN 325 MG TABLET PO PRN ×3 (08:53→17:40)
--- NOTE | 2021-05-23 09:08 | Cardiology Progress Note ---
Progress Note-Cardiology Events since last exam Date Seen by Provider: May 23, 2021 Time Seen by Provider: 09:03 Events since last exam I am following him due to ventricular tachycardia. He remains on the medical floor awaiting insurance approval for inpatient rehab. He denies recurrent lightheadedness or syncope. His main complaint is weakness and he has trouble standing on his own. He denies chest pain, dyspnea at rest, palpitations, or ankle edema. Certain portions of this document may have been dictated utilizing voice recognition technology. Inherent to this technology, typographical and gramma tical errors may exist. As much as I am diligent to identify and correct these mistakes, some errors may remain in the document. Vitals Last set of Vitals Signs Vital Signs 05/23/21 05/23/21 03:44 08:00 Temp 36.2 Pulse 70 Resp 18 B/P (MAP) 159/104 (122) Pulse Ox 95 O2 Delivery Room Air O2 Flow Rate 2.00 Labs Labs Laboratory Tests 05/23/21 05:42 Exam Vital Signs Vital Signs Date Time Temp Pulse Resp B/P (MAP) Pulse Ox O2 Delivery O2 Flow Rate FiO2 05/23/21 08:00 36.2 70 18 159/104 (122) 95 Room Air 05/23/21 03:44 2.00 Physical Exam General: Alert. No acute distress. Eye: No xanthelasma. HENT: Normocephalic. Neck: Jugular venous pressure does not appear elevated. Respiratory: Lungs are clear to auscultation. Respirations are non-labored. Breath sounds are equal. Symmetrical chest wall expansion. Cardiovascular: Normal rate. Regular rhythm. No murmur. No gallop. No edema. Gastrointestinal: Soft. Normal bowel sounds. Skin: Warm. Dry. Right foot is in a boot. Neurologic: Alert and oriented to person, place, time. Cranial nerves 3-11 grossly intact. Psychiatric: Cooperative. Appropriate mood & affect. Labs Laboratory Tests Test 05/22/21 11:51 05/22/21 15:23 05/22/21 20:08 05/23/21 05:09 Range/Units Glucometer 134 H 161 H 168 H 119 H 70-110 MG/DL Test 05/23/21 05:42 Range/Units Sodium Level 136 135-145 MMOL/L Potassium Level 4.2 3.6-5.0 MMOL/L Chloride Level 105 98-107 MMOL/L Carbon Dioxide Level 20 L 21-32 MMOL/L Anion Gap 11 5-14 MMOL/L Blood Urea Nitrogen 21 H 7-18 MG/DL Creatinine 0.97 0.60-1.30 MG/DL Estimat Glomerular Filtration Rate 81 BUN/Creatinine Ratio 22 Glucose Level 123 H 70-105 MG/DL Calcium Level 8.8 8.5-10.1 MG/DL Phosphorus Level 3.8 2.3-4.7 MG/DL Magnesium Level 1.8 1.6-2.4 MG/DL Diagnosis/Problems Diagnosis/Problems (1) Ventricular tachycardia Status: Acute Assessment & Plan: He has not had any recurrent ventricular tachycardia since his cardioversion that was done on the day of admission. On the advice of an services advisor at [facility], I treated the patient with 24 hours of intravenous lidocaine while he was started on mexiletine. With the assistance of the [employer] device rep and the services advisor, his device was reprogrammed to lower the ventricular tachycardia detection rate to 136 bpm and we have adjusted the treatment protocols for the ventricular tachycardia. I will plan to see the patient in my office in 1-2 weeks following discharge and then I can coordinate getting the patient in to see an services advisor in the [facility] in the next few weeks. He may need a complex ventricular tachycardia ablation. (2) Arrhythmogenic right ventricular dysplasia Status: Acute Assessment & Plan: He has a known history of arrhythmogenic right ventricular dysplasia. He has a biventricular dual-chamber defibrillator in place. We will proceed as above. He does not have any children who need to be screened for this inheritable disorder. (3) Primary hypertension Assessment & Plan: I initially held his antihypertensive medication due to the low blood pressure at the time of admission. His blood pressures are now becoming elevated. I restarted his amlodipine 2.5 mg daily on 05/20. His renal function has improved. I restarted his lisinopril but his blood pressures remained elevated on half of his normal home dose. I increase to the lisinopril to his previous home dose on 05/22. I will give this at least several days to start working before making additional adjustments to his antihypertensive regimen. (4) Mixed hyperlipidemia Assessment & Plan: Continues atorvastatin. (5) Elevated troponin Status: Acute Assessment & Plan: His troponin was quite elevated even prior to the cardioversion. However, his cardiac catheterization did not show any significant coronary artery disease. This was a probable type II non-ST elevation myocardial infarction possibly related to hypotension that occurred with the ventricular tachycardia resulting in supply/demand mismatch. He should continue on aspirin and atorvastatin. He is on sotalol as a beta-maite. (6) Acute kidney injury Status: Acute Assessment & Plan: His renal function has improved. This may have in part been brought on by significant hypotension that occurred with the ventricular tachycardia. (7) Right fibular fracture Status: Acute Assessment & Plan: As above, orthopedic surgery recommends nonsurgical therapy. The patient may be too weak to manage at home. As above, he is awaiting transfer to inpatient rehab. JOSEFINA JUNE JR, MD May 23, 2021 09:08
--- NOTE | 2021-05-23 10:05 | Physical Therapy Daily Note ---
PT Daily Note-Current Subjective Patient lying supine in bed upon PT arrival, agreeable to treatment. Rates pain currently at 0/10. Mental Status Patient Orientation: Person, Place Transfers SCALE: Activities may be completed with or without assistive devices. 9-Redwrcnxnf-pwkftvg completes the activity by him/herself with no assistance from a helper. 5-Set-up or Clean-up Assistance-helper sets up or cleans up; patient completes activity. [place] assists only prior to or following the activity. 4-Supervision or Touching Assistance-helper provides verbal cues and/or touching/steadying and/or contact guard assistance as patient completes activity. Assistance may be provided throughout the activity or intermittently. 3-Partial/Moderate Assistance-helper does LESS THAN HALF the effort. [place] lifts, holds or supports trunk or limbs, but provides less than half the effort. 2-Substantial/Maximal Assistance-helper does MORE THAN HALF the effort. [place] lifts or holds trunk or limbs and provides more than half the effort. 2-Yxwgsfcek-giygwb does ALL the effort. Patient does none of the effort to complete the activity. Or, the assistance of 2 or more helpers is required for the patient to complete the activity. If activity was not attempted, code reason: 7-Patient Refused. 9-Not Applicable-not attempted and the patient did not perform the activity before the current illness, exacerbation or injury. 10-Not Attempted due to Environmental Limitations-(lack of equipment, weather restraints, etc.). 88-Not Attempted due to Medical Conditions or Safety Concerns. Roll Left & Right (QC): 4 Sit to Lying (QC): 3 (min) Lying to Sitting/Side of Bed(Q: 3 (min) Sit to Stand (QC): 3 (mod) Chair/Jre-tl-Pjlaj Xfer(QC): 3 (min) Weight Bearing Right Lower Extremity: Right Non Weight Bearing Left Lower Extremity: Left Weight Bearing/Tolerated Gait Training Does the Patient Walk?: Yes Distance: 5 Gait Assistive Device: FWW Patient performs hop to gait on Left LE with FWW, with mod A. Patient is unable to maintain NWB right LE, however is able to place ~ PWB with verbal cues. Wheelchair Training Does the Pt Use a Wheelchair?: No Assessment Current Status: Fair Progress Patient lying supine in bed upon PT arrival, agreeable to treatment however hes itant and seems poorly motivated due to his current affect and response. Patient performs all observed bed mobility with SBA, all Transfers with min/mod A and verbal cues for safety and progression sans weight bearing on right LE. Patient performs hop to gait on Left LE with FWW, with mod A. Patient is unable to maintain NWB right LE, however is able to place ~ PWB with verbal cues. Patient is unable to comply with NWB right LE mostly due to general weakness, however significant strength deficit in left LE. During left LE stance, he tends to maintain ~ 10-15 degrees of flexion. He is unable to achieve left TKE despite verbal cues and manual assistance. At this time patient tolerance to activity is poor, however with continued physical therapy intervention and regimented therapy focused on strength training, transfer training, improving balance and increasing gait, patient demonstrates good potential to return to PLOF when approved for full weight bearing on left LE. Patient is unsafe to return home at this time as he lives alone and presents a significant fall risk if attempting to transfer alone, requires significant manual assistance. Patient will continue to benefit from continued Physical therapy intervention to improve the above listed deficits. PT Insole Lip [place] Goals Senior Living Goals PT Insole Lip [place] Goals Time Frame: May 26, 2021 Sit to Lying (QC): 6 Lying-Sitting on Side/Bed(QC): 6 Sit to Stand (QC): 4 Chair/Frb-ay-Azlen Xfer(QC): 4 Walk 10 feet (QC): 4 Walk 50ft with 2 Turns (QC): 4 PT Plan Treatment/Plan Treatment Plan: Continue Plan of Care Treatment Plan: Bed Mobility, Concurrent Therapy, Education, Functional Activity Mallika, Functional Strength, Gait, Safety, Therapeutic Exercise, Transfers Treatment Duration: May 26, 2021 Frequency: 6 times per week Estimated Hrs Per Day: .25 hour per day Patient and/or Family Agrees t: Yes Safety Risks/Education Patient Education: Gait Training, Transfer Techniques Teaching Recipient: Patient Teaching Methods: Demonstration, Discussion Response to Teaching: Reinforcement Needed Time/GCodes Time In: 0943 Time Out: 1000 Total Billed Treatment Time: 17 Total Billed Treatment Visit, Gait PARTH NUÑEZ PT May 23, 2021 10:04
--- NOTE | 2021-05-23 11:38 | Occupational Ther Daily Note ---
OT Current Status-Daily Note Subjective Pt alert, sitting in recliner. Pt agrees to therapy. No c/o pain at this time. Mental Status/Objective Patient Orientation: Person, Place, Time, Situation Attachments: Duong Catheter, IV ADL-Treatment Nrsg stated that they had given pt sponge bath prior to OT session. Pt stated that he had already completed oral care. Pt demonstrated ability to don/doff L sock when sitting in recliner and bending knee to bring foot up. Therapy Code Descriptions/Definitions Functional [place] Measure: 0=Not Assessed/NA 4=Minimal Assistance 1=Total Assistance 5=Supervision or Setup 2=Maximal Assistance 6=Modified [place] 3=Moderate Assistance 7=Complete IndependenceSCALE: Activities may be completed with or without assistive devices. 9-Mdvnntdogm-vswpaiw completes the activity by him/herself with no assistance from a helper. 5-Set-up or Clean-up Assistance-helper sets up or cleans up; patient completes activity. [place] assists only prior to or following the activity. 4-Supervision or Touching Assistance-helper provides verbal cues and/or touching/steadying and/or contact guard assistance as patient completes activity. Assistance may be provided throughout the activity or intermittently. 3-Partial/Moderate Assistance-helper does LESS THAN HALF the effort. [place] lifts, holds or supports trunk or limbs, but provides less than half the effort. 2-Substantial/Maximal Assistance-helper does MORE THAN HALF the effort. [place] lifts or holds trunk or limbs and provides more than half the effort. 2-Tqytthxju-adnaji does ALL the effort. Patient does none of the effort to complete the activity. Or, the assistance of 2 or more helpers is required for the patient to complete the activity. If activity was not attempted, code reason: 7-Patient Refused. 9-Not Applicable-not attempted and the patient did not perform the activity before the current illness, exacerbation or injury. 10-Not Attempted due to Environmental Limitations-(lack of equipment, weather restraints, etc.). 88-Not Attempted due to Medical Conditions or Safety Concerns. Other Treatment Pt given medium resistance theraband for B UE exercises. Skilled instruction for correct technique provided. Pt able to complete 3 B UE exercises independently then required cues for technique and to slow down for bicep curls, tricep extensions and shldr abd/add. After session, pt sitting in recliner with call light/phone in reach. All needs met in room. OT Half-Way Goals Half-Way Goals Time Frame: Jun 09, 2021 Eating (QC): 6 Oral Hygiene (QC): 6 Toileting Hygiene (QC): 4 Shower/Bathe Self (QC): 4 Upper Body Dressing (QC): 5 Lower Body Dressing (QC): 4 On/Off Footwear (QC): 4 Additional Goals: 1-Demonstrate ADL Tasks, 2-Verbalize Understanding, 3- ImproveStrength/M[place] 1=Demonstrate adherence to instructed precautions during ADL tasks. 2=Patient will verbalize/demonstrate understanding of assistive devices/modifications for ADL. 3=Patient will improve strength/tolerance for activity to enable patient to perform ADL's. OT Education/Plan Problem List/Assessment Assessment: Decreased Activ Tolerance, Decreased UE Strength, Impaired Coordination, Impaired Self-Care Skills Discharge Recommendations Plan/Recommendations: Continue POC Treatment Plan/Plan of Care Patient would benefit from OT for education, treatment and training to promote independence in ADL's, mobility, safety and/or upper extremity function for ADL's. Plan of Care: ADL Retraining, Functional Mobility, UE Funct Exercise/Act Treatment Duration: Jun 09, 2021 Frequency: 3 times per week (3-5 times per week) Estimated Hrs Per Day: .25 hour per day Agreement: Yes Rehab Potential: Fair Time/GCodes Start Time: 11:16 Stop Time: 11:31 Total Time Billed (hr/min): 15 Billed Treatment Time 1 visit-EX 1 (15 min) ASHLI KONG May 23, 2021 11:38
--- NOTE | 2021-05-23 11:41 | Progress Note - Hospitalist ---
Subjective HPI/CC On Admission Date Seen by Provider: May 23, 2021 Time Seen by Provider: 11:36 Subjective/Events-last exam Pty reports doing well. Discussed plan for hopeful discharge to IRU and awaiting insurance approval. Objective Exam Vital Signs Vital Signs Date Time Temp Pulse Resp B/P (MAP) Pulse Ox O2 Delivery O2 Flow Rate FiO2 05/23/21 08:00 36.2 70 18 159/104 (122) 95 Room Air 05/23/21 03:44 2.00 Capillary Refill : Less Than 3 Seconds General Appearance: No Apparent Distress, WD/WN Respiratory: Lungs Clear, No Respiratory Distress Cardiovascular: Regular Rate, Rhythm, No Murmur Gastrointestinal: Normal Bowel Sounds, Non Tender, Soft Neurologic/Psychiatric: Alert, Oriented x3 Results/Procedures Lab Laboratory Tests 05/23/21 05:42 Patient resulted labs reviewed. Assessment/Plan Assessment and Plan Assess & Plan/Chief Complaint Fibula fracture Ortho consulted Boot in place PT/OT Inpatient rehab evaluation- accepted by them and awaiting insurance approval Nonweight bearing status on right leg- has difficulty maintaining NWB Ventricular tachycardia NSTEMI Cardiology consulted, appreciate recs s/p cardioversion Continue Mexiletine, Sotalol Left heart cath without significant CAD BPH Urinary retention Continue Flomax T2DM Sliding scale insulin DVT prophylaxis: Lovenox Cardiogenic shock, resolved Brett- resolved Critical Care Critically Ill Patient Clinical Quality Measures AMI/AHF: ASA po Prior to arrival: JONATHAN Velazquez MD May 23, 2021 11:41
[2021-05-23] MEDS: ENOXAPARIN 40 MG/0.4 ML (LOVENOX) SYR SC SCH (13:30)
[2021-05-23] MEDS: polyethylene glycoL POWDER 17 GM (MIRALAX) PACK PO PRN (13:40)
[2021-05-23] MEDS: TAMSULOSIN 0.4 MG (FLOMAX) CAP PO SCH (17:40)
[2021-05-23] MEDS: MELATONIN 3 MG TABLET PO PRN (23:47)
[2021-05-24 04:00] VITALS: BP 154/85
[2021-05-24] MEDS: MEXILETINE 150 MG (MEXITIL) CAPSULE PO SCH (05:13)
[2021-05-24 05:57] LABS: POTASSIUM 4.5 MMOL/L (3.6-5.0)
[2021-05-24 05:59] LABS: CALCIUM 9.1 MG/DL (8.5-10.1)
[2021-05-24 06:03] LABS: CREATININE SERUM 0.96 MG/DL (0.60-1.30); PHOSPHORUS 3.9 MG/DL (2.3-4.7)
[2021-05-24] MEDS: inSUlin ASPART (NovoLOG) 1 UNIT/0.01 ML (CHARGE PER UNIT) SC SCH ×2 (06:04→11:24)
[2021-05-24] MEDS: KCL 20 MEQ TAB (K-DUR) PO SCH (06:04)
[2021-05-24] MEDS: POTASSIUM CL 10MEQ/50ML IVPB 50 ML IV SCH (06:04)
[2021-05-24 06:05] LABS: MAGNESIUM 1.7 MG/DL (1.6-2.4)
[2021-05-24] MEDS: MAGNESIUM 1 GM/100 ML IVPB 100 ML IV SCH ×3 (06:28→07:42)
[2021-05-24 08:00] VITALS: BP 159/96
[2021-05-24] MEDS: ASPIRIN E.C. 81 MG (ECOTRIN) TAB PO SCH (08:36)
[2021-05-24] MEDS: lisINopril 20 MG (PRINIVIL) TABLET PO SCH (08:36)
[2021-05-24] MEDS: amLODIPine 2.5MG (NORVASC) TAB PO SCH (08:36)
[2021-05-24] MEDS: SOTALOL 80 MG (BETAPACE) TAB PO SCH (08:38)
--- NOTE | 2021-05-24 09:02 | Cardiology Progress Note ---
Progress Note-Cardiology Events since last exam Date Seen by Provider: May 24, 2021 Time Seen by Provider: 09:01 Events since last exam I am following him due to ventricular tachycardia. The pain in his right foot is under good control with just acetaminophen. He is still waiting for insurance approval to be transferred to an inpatient rehab for physical therapy. He denies chest pain, dyspnea at rest, palpitations, syncope, or ankle edema. Certain portions of this document may have been dictated utilizing voice recognition technology. Inherent to this technology, typographical and grammatical errors may exist. As much as I am diligent to identify and correct these mistakes, some errors may remain in the document. Vitals Last set of Vitals Signs Vital Signs 05/24/21 05/24/21 04:00 08:00 Temp 35.8 Pulse 61 Resp 18 B/P (MAP) 159/96 (117) Pulse Ox 95 O2 Delivery Room Air O2 Flow Rate 2.00 Labs Labs Laboratory Tests 05/24/21 05:25 Exam Vital Signs Vital Signs Date Time Temp Pulse Resp B/P (MAP) Pulse Ox O2 Delivery O2 Flow Rate FiO2 05/24/21 08:00 35.8 61 18 159/96 (117) 95 Room Air 05/24/21 04:00 2.00 Physical Exam General: Alert. No acute distress. Eye: No xanthelasma. HENT: Normocephalic. Neck: Jugular venous pressure does not appear elevated. Respiratory: Lungs are clear to auscultation. Respirations are non-labored. Breath sounds are equal. Symmetrical chest wall expansion. Cardiovascular: Normal rate. Regular rhythm. No murmur. No gallop. No edema. Gastrointestinal: Soft. Normal bowel sounds. Skin: Warm. Dry. Right foot is in boot. Neurologic: Alert and oriented to person, place, time. Cranial nerves 3-11 grossly intact. Psychiatric: Cooperative. Appropriate mood & affect. Labs Laboratory Tests Test 05/23/21 10:56 05/23/21 15:52 05/23/21 21:30 05/24/21 05:25 Range/Units Glucometer 165 H 164 H 142 H 70-110 MG/DL Sodium Level 137 135-145 MMOL/L Potassium Level 4.5 3.6-5.0 MMOL/L Chloride Level 104 98-107 MMOL/L Carbon Dioxide Level 22 21-32 MMOL/L Anion Gap 11 5-14 MMOL/L Blood Urea Nitrogen 21 H 7-18 MG/DL Creatinine 0.96 0.60-1.30 MG/DL Estimat Glomerular Filtration Rate 82 BUN/Creatinine Ratio 22 Glucose Level 120 H 70-105 MG/DL Calcium Level 9.1 8.5-10.1 MG/DL Phosphorus Level 3.9 2.3-4.7 MG/DL Magnesium Level 1.7 1.6-2.4 MG/DL Diagnosis/Problems Diagnosis/Problems (1) Ventricular tachycardia Status: Acute Assessment & Plan: He has not had any recurrent ventricular tachycardia since his cardioversion that was done on the day of admission. On the advice of an deboner at [facility], I treated the patient with 24 hours of intravenous lidocaine while he was started on mexiletine. With the assistance of the [employer] device rep and the deboner, his device was reprogrammed to lower the ventricular tachycardia detection rate to 136 bpm and we have adjusted the treatment protocols for the ventricular tachycardia. I will plan to see the patient in my office in 1-2 weeks following discharge and then I can coordinate getting the patient in to see an deboner in the [facility] in the next few weeks. He may need a complex ventricular tachycardia ablation. His telemetry can be discontinued at this time. (2) Arrhythmogenic right ventricular dysplasia Status: Acute Assessment & Plan: He has a known history of arrhythmogenic right ventricular dysplasia. He has a biventricular dual-chamber defibrillator in place. We will proceed as above. He does not have any children who need to be screened for this inheritable disorder. (3) Primary hypertension Assessment & Plan: I initially held his antihypertensive medication due to the low blood pressure at the time of admission. His blood pressures are now becoming elevated. I restarted his amlodipine 2.5 mg daily on 05/20. I restarted his lisinopril but his blood pressures remained elevated on half of his normal home dose. I increased the lisinopril to his previous home dose on 05/22. His blood pressures are still elevated today. I will increase his dose of the amlodipine today. (4) Mixed hyperlipidemia Assessment & Plan: Continues atorvastatin. (5) Elevated troponin Status: Acute Assessment & Plan: His troponin was quite elevated even prior to the cardioversion. However, his cardiac catheterization did not show any significant coronary artery disease. This was a probable type II non-ST elevation myocardial infarction possibly related to hypotension that occurred with the ventricular tachycardia resulting in supply/demand mismatch. He should continue on aspirin and atorvastatin. He is on sotalol as a beta-maite. (6) Acute kidney injury Status: Acute Assessment & Plan: His renal function has improved. This may have in part been brought on by significant hypotension that occurred with the ventricular tachy cardia. (7) Right fibular fracture Status: Acute Assessment & Plan: As above, orthopedic surgery recommends nonsurgical therapy. The patient may be too weak to manage at home. As above, he is awaiting transfer to inpatient rehab. JOSEFINA JUNE JR, MD May 24, 2021 09:02
[2021-05-24] MEDS ORDERED: amLODIPine 2.5MG (NORVASC) TAB PO ONE (10:00)
--- NOTE | 2021-05-24 11:17 | Discharge Summary ---
Diagnosis/Chief Complaint Date of Admission May 19, 2021 at 10:47 Date of Discharge Primary Care No,Local Physician Discharge Diagnosis (1) Ventricular tachycardia Status: Acute Assessment & Plan: He has not had any recurrent ventricular tachycardia since his cardioversion that was done on the day of admission. On the advice of an material control analyst at [facility], I treated the patient with 24 hours of intravenous lidocaine while he was started on mexiletine. With the assistance of the [place] device rep and the material control analyst, his device was reprogrammed to lower the ventricular tachycardia detection rate to 136 bpm and we have adjusted the treatment protocols for the ventricular tachycardia. I will plan to see the patient in my office in 1-2 weeks following discharge and then I can coordinate getting the patient in to see an material control analyst in the [facility] in the next few weeks. He may need a complex ventricular tachycardia ablation. His telemetry can be discontinued at this time. (2) Arrhythmogenic right ventricular dysplasia Status: Acute Assessment & Plan: He has a known history of arrhythmogenic right ventricular dysplasia. He has a biventricular dual-chamber defibrillator in place. We will proceed as above. He does not have any children who need to be screened for this inheritable disorder. (3) Primary hypertension Assessment & Plan: I initially held his antihypertensive medication due to the low blood pressure at the time of admission. His blood pressures are now becoming elevated. I restarted his amlodipine 2.5 mg daily on 05/20. I restarted his lisinopril but his blood pressures remained elevated on half of his normal home dose. I increased the lisinopril to his previous home dose on 05/22. His blood pressures are still elevated today. I will increase his dose of the amlodipine today. (4) Mixed hyperlipidemia Assessment & Plan: Continues atorvastatin. (5) Elevated troponin Status: Acute Assessment & Plan: His troponin was quite elevated even prior to the cardioversion. However, his cardiac catheterization did not show any significant coronary artery disease. This was a probable type II non-ST elevation myocardial infarction possibly related to hypotension that occurred with the ventricular tachycardia resulting in supply/demand mismatch. He should continue on aspirin and atorvastatin. He is on sotalol as a beta-maite. (6) Acute kidney injury Status: Acute Assessment & Plan: His renal function has improved. This may have in part been brought on by significant hypotension that occurred with the ventricular tachycardia. (7) Right fibular fracture Status: Acute Assessment & Plan: As above, orthopedic surgery recommends nonsurgical therapy. The patient may be too weak to manage at home. As above, he is awaiting transfer to inpatient rehab. Discharge Summary Discharge Physical Exam Allergies: Uncoded Allergies: UNKNOWN CHOLESTEROL MED. (Allergy, Unknown, 02/12/18) Vitals & I&Os Vital Signs Date Time Temp Pulse Resp B/P (MAP) Pulse Ox O2 Delivery O2 Flow Rate FiO2 05/24/21 08:00 35.8 61 18 159/96 (117) 95 Room Air 05/24/21 04:00 2.00 General Appearance: No Apparent Distress, WD/WN Respiratory: Lungs Clear, No Respiratory Distress Cardiovascular: Regular Rate, Rhythm, No Murmur Neurologic/Psychiatric: Alert, Oriented x3 Hospital Course Pt was admitted to the hospital due to syncope due to ventricular tachycardia. He underwent cardioversion and was started on sotalol without recurrent episodes. Cardiology was consulted. He suffered a nondisplaced fibular fracture and ortho was consulted and recommended NWB status for 3 weeks. Due to his debility he was evaluated by IRU and deemed an appropriate candidate. He was discharged there in stable and improved condition to follow up with his PCP, ortho, and cardiology after his discharge from IRU. Labs (last 24 hrs) Laboratory Tests 05/23/21 15:52: Glucometer 164H 05/23/21 21:30: Glucometer 142H 05/24/21 05:25: Sodium Level 137, Potassium Level 4.5, Chloride Level 104, Carbon Dioxide Level 22, Anion Gap 11, Blood Urea Nitrogen 21H, Creatinine 0.96, Estimat Glomerular Filtration Rate 82, BUN/Creatinine Ratio 22, Glucose Level 120H, Calcium Level 9.1, Phosphorus Level 3.9, Magnesium Level 1.7 Microbiology 05/19/21 MRSA Screen - Final, Complete MRSA not isolated Patient resulted labs reviewed. Pending Labs Laboratory Tests 05/24/21 05:25: Sodium Level 137, Potassium Level 4.5, Chloride Level 104, Carbon Dioxide Level 22, Anion Gap 11, Blood Urea Nitrogen 21, Creatinine 0.96, Estimat Glomerular Filtration Rate 82, BUN/Creatinine Ratio 22, Glucose Level 120, Calcium Level 9.1, Phosphorus Level 3.9, Magnesium Level 1.7 Discussion & Recommendations Discharge Planning: >30 minutes discharge planning Discharge Home Medications: Active Scripts Active Reported Flomax (Tamsulosin HCl) 0.4 Mg Cap 0.4 Mg PO DAILY Sotalol (Sotalol HCl) 80 Mg Tablet 40 Mg PO BID TAKES OF 80MG TAB Multivitamins with Minerals (Multivitamin with Minerals) 1 Each Tablet 1 Each PO DAILY Eye Health Adult 50+ Softgel (Antiox #11/Om3/Dha/Epa/Lut/Salvador) 1 Each Capsule 1 Each PO BID Lisinopril 40 Mg Tablet 40 Mg PO DAILY Hydrochlorothiazide 25 Mg Tablet 12.5 Mg PO TAKES OF A 25MG TAB Cyclobenzaprine HCl 10 Mg Tablet 10 Mg PO HS PRN Vitamin B-12 (Cyanocobalamin (Vitamin B-12)) 1,000 Mcg Tablet 1,000 Mcg PO DAILY Atorvastatin Calcium 80 Mg Tablet 40 Mg PO HS TAKES OF A 40MG TAB Aspirin EC (Aspirin) 81 Mg Tablet.dr 81 Mg PO DAILY Amlodipine Besylate 5 Mg Tablet 2.5 Mg PO 1200 TAKES OF A 5MG TAB Allopurinol 100 Mg Tablet 100 Mg PO DAILY Proair Hfa (Albuterol Sulfate) 1 Puff Puff 2 Puff IH QID PRN Tylenol Extra Strength (Acetaminophen) 500 Mg Tablet 1,000 Mg PO Q8H PRN Vitamin C (Ascorbate Calcium) 500 Mg Tablet 500 Mg PO DAILY Instructions to patient/family Please see electronic discharge instructions given to patient. Clinical Quality Measures AMI/AHF: ASA po Prior to arrival: JONATHAN Velazquez MD May 24, 2021 11:17
[2021-05-24 11:34] VITALS: BP 162/93
--- NOTE | 2021-05-24 12:12 | Physical Therapy Daily Note ---
PT Daily Note-Current Subjective Pt agreeable. Pt denied leg pain. Pt rates LBP 5/10. Mental Status Patient Orientation: Person, Place, Situation Attachments: Oxygen, Duong Catheter Transfers SCALE: Activities may be completed with or without assistive devices. 5-Wthcgvivcl-kdipfcs completes the activity by him/herself with no assistance from a helper. 5-Set-up or Clean-up Assistance-helper sets up or cleans up; patient completes activity. [place] assists only prior to or following the activity. 4-Supervision or Touching Assistance-helper provides verbal cues and/or touching/steadying and/or contact guard assistance as patient completes activity. Assistance may be provided throughout the activity or intermittently. 3-Partial/Moderate Assistance-helper does LESS THAN HALF the effort. [place] lifts, holds or supports trunk or limbs, but provides less than half the effort. 2-Substantial/Maximal Assistance-helper does MORE THAN HALF the effort. [place] lifts or holds trunk or limbs and provides more than half the effort. 4-Nqsqumzpf-fjgtfz does ALL the effort. Patient does none of the effort to complete the activity. Or, the assistance of 2 or more helpers is required for the patient to complete the activity. If activity was not attempted, code reason: 7-Patient Refused. 9-Not Applicable-not attempted and the patient did not perform the activity before the current illness, exacerbation or injury. 10-Not Attempted due to Environmental Limitations-(lack of equipment, weather restraints, etc.). 88-Not Attempted due to Medical Conditions or Safety Concerns. Bed elevated for sit to stand. Pt able to transfer sit <->stand with CGA. Weight Bearing Right Lower Extremity: Right Non Weight Bearing Left Lower Extremity: Left Weight Bearing/Tolerated Gait Training Gait Assistive Device: FWW Pt amb with FWW and NWB (R) LE, max vc's for sequencing. Pt amb x 5ft, cam boot in place, tends to rest (R) foot down after each hop. Exercises Seated Therapy Exercises: Long arc quads, Hip flexion Seated Reps: 20 Treatments Pt resting in recliner with call light in lap and (B) LE elevated on pillow. A ll needs met Assessment Current Status: Fair Progress Pt lexus very well. Pt somewhat unsteady and struggling to maintain NWB status. Pt able to craft superintendent place after each hop and place (R) foot down. Pt would benefit from continued therapy to improve functional mobility and safety. PT Jail Goals Jail Goals PT Trailer Driver Goals Time Frame: May 26, 2021 Sit to Lying (QC): 6 Lying-Sitting on Side/Bed(QC): 6 Sit to Stand (QC): 4 Chair/Aly-fa-Yeeui Xfer(QC): 4 Walk 10 feet (QC): 4 Walk 50ft with 2 Turns (QC): 4 PT Plan Treatment/Plan Treatment Plan: Continue Plan of Care Treatment Plan: Bed Mobility, Concurrent Therapy, Education, Functional Activity Mallika, Functional Strength, Gait, Safety, Therapeutic Exercise, Transfers Treatment Duration: May 26, 2021 Frequency: 6 times per week Estimated Hrs Per Day: .25 hour per day Patient and/or Family Agrees t: Yes Time/GCodes Time In: 850 Time Out: 915 Total Billed Treatment Time: 25 Total Billed Treatment 1, Ex x 15', Gait x 10' YONIS CERON CPTA May 24, 2021 12:12
[2021-05-24 12:52] VITALS: BP 162/93
[2021-05-25] MEDS ORDERED: amLODIPine 5 MG (NORVASC) TAB PO SCH (09:00)
== END 2021-05-24 12:55 | DRG 280 ==
LOC: EDUNIT# 09:35 → ER 09:36 → ICU 10:47 → 4TH 05-21 15:45
PROVIDERS: ADMIT Internal Medicine; ATTEND Internal Medicine
PROC: 5A2204Z Restoration of Cardiac Rhythm, Single (ICD-10-PCS; principal; 2021-05-19)
PROC: 4A023N7 Measurement of Cardiac Sampling and Pressure, Left Heart, Percutaneous Approach (ICD-10-PCS; 2021-05-19)
PROC: B2111ZZ Fluoroscopy of Multiple Coronary Arteries using Low Osmolar Contrast (ICD-10-PCS; 2021-05-19)
PROC: 8E0ZXY6 Isolation (ICD-10-PCS; 2021-05-19)
DX: I47.2 Ventricular tachycardia (principal); I21.A1 Myocardial infarction type 2; R57.0 Cardiogenic shock; I42.8 Other cardiomyopathies; N17.9 Acute kidney failure, unspecified; S82.831A Other fracture of upper and lower end of right fibula, initial encounter for closed fracture; N40.1 Benign prostatic hyperplasia with lower urinary tract symptoms; R33.8 Other retention of urine; H54.7 Unspecified visual loss; E78.00 Pure hypercholesterolemia, unspecified; K59.09 Other constipation; M10.9 Gout, unspecified; E11.9 Type 2 diabetes mellitus without complications; Z79.4 Long term (current) use of insulin; Z79.82 Long term (current) use of aspirin; Z87.891 Personal history of nicotine dependence; Z95.810 Presence of automatic (implantable) cardiac defibrillator; W19.XXXA Unspecified fall, initial encounter
CPT/HCPCS: 36415; 71045; 73610; 80048; 80053; 80061; 82565; 82947; 83735; 83874; 84100; 84484; 85025; 85610; 85730; 87081; 93005; 93041; 93308; 93458; 96365

== ENCOUNTER 2021-05-24 11:21 | Inpatient (IN) | payer OTHER, MEDICARE ==
[~2021-05-24] VITALS: Ht 182.9 cm; Wt 104.9 kg
[~2021-05-24 11:21] MED LIST: ACET-2267 PO; ALLO100T PO; AMLO-250 PO; ANTI1CAP5 PO; ASCO-262 PO; ASPI-1238 PO; ATOR80TA76 PO; CYAN-41 PO; CYCL10TA25 PO; HYDR25TA4 PO; LISI40TA9 PO; MULT-166 PO; RT-ALBUINH IH; SOTA80TA22 PO; SOTA80TA62 PO; TMSL.4C PO
[2021-05-24] MEDS ORDERED: CALCIUM CARBONATE 500 MG (TUMS) TAB.CHEW PO PRN (12:15)
[2021-05-24] MEDS ORDERED: diphenhydrAMINE 25 MG TAB (BENADRYL) PO PRN (12:15)
[2021-05-24] MEDS ORDERED: ONDANSETRON 4 MG (ZOFRAN) ORAL DISSOLVE TAB PO PRN (12:15)
[2021-05-24] MEDS ORDERED: FLEET ENEMA ADULT 1 EA BTL PR PRN (12:15)
[2021-05-24] MEDS ORDERED: LOPERAMIDE 2 MG (IMODIUM) TABLET PO PRN (12:15)
[2021-05-24] MEDS ORDERED: ALPRAZolam 0.25 MG (XANAX) TAB PO PRN (12:15)
[2021-05-24] MEDS ORDERED: ACETAMINOPHEN 325 MG TABLET PO PRN (12:15)
[2021-05-24] MEDS ORDERED: LACTULOSE SYRUP 10GM/15ML (ENULOSE) 30ML UDC PO PRN (12:15)
[2021-05-24] MEDS ORDERED: DOCUSATE SODIUM 100 MG (COLACE) CAP PO PRN (12:15)
[2021-05-24] MEDS ORDERED: guaiFENesin/CODEINE (ROBITUSSIN AC) 10ML UDC PO PRN (12:15)
[2021-05-24] MEDS ORDERED: MELATONIN 3 MG TABLET PO PRN ×2 (12:15→18:30)
[2021-05-24 12:50] VITALS: BP 151/83
--- NOTE | 2021-05-24 13:33 | Physical Therapy Evaluation ---
PT Evaluation-General Medical Diagnosis Admission Date May 24, 2021 at 12:50 Medical Diagnosis: ventricular tachycardia, R distal fibular fx Onset Date: May 19, 2021 Therapy Diagnosis Therapy Diagnosis: Gait deficit, strength deficit Height/Weight Height (Feet): 6 Height (Inches): 1.00 Weight (Pounds): 235 Precautions Precautions/Isolations: Fall Prevention, Standard Precautions Weight Bear Status Right Lower Extremity: Right Non Weight Bearing Left Lower Extremity: Left Full Weight Bearing Patient 3 weeks NWB right LE from admit on 05-20-21; Reassess 06-10-21 Referral Physician: Dr. Maciel Reason for Referral: Evaluation/Treatment Medical History Reviewed History: Yes Social History Home: Single Level Current Living Status: Friend Entry Into Home: Stairs With Railing PT Steps Into Home: 1 Prior Prior Level of Function SCALE: Activities may be completed with or without assistive devices. 3-Zvyhnaziuw-ijbwegu completes the activity by him/herself with no assistance from a helper. 5-Set-up or Clean-up Assistance-helper sets up or cleans up; patient completes activity. [place] assists only prior to or following the activity. 4-Supervision or Touching Assistance-helper provides verbal cues and/or touching/steadying and/or contact guard assistance as patient completes activity. Assistance may be provided throughout the activity or intermittently. 3-Partial/Moderate Assistance-helper does LESS THAN HALF the effort. [place] lifts, holds or supports trunk or limbs, but provides less than half the effort. 2-Substantial/Maximal Assistance-helper does MORE THAN HALF the effort. [place] lifts or holds trunk or limbs and provides more than half the effort. 8-Cenwyixzi-ubncju does ALL the effort. Patient does none of the effort to complete the activity. Or, the assistance of 2 or more helpers is required for the patient to complete the activity. If activity was not attempted, code reason: 7-Patient Refused. 9-Not Applicable-not attempted and the patient did not perform the activity before the current illness, exacerbation or injury. 10-Not Attempted due to Environmental Limitations-(lack of equipment, weather restraints, etc.). 88-Not Attempted due to Medical Conditions or Safety Concerns. Bed Mobility: 6 Transfers (B,C,W/C): 6 Gait: 6 Stairs: 6 Indoor Mobility (Ambulation): Independent Stairs: Independent Prior Devices Use: Other-see list below Prior Device Use: Cane PT Evaluation-Current Subjective Patient lying supine in bed upon PT arrival, agreeable to treatment. Patient currently rates right ankle pain at 0/10. Objective Patient Orientation: Person, Place Attachments: Oxygen ROM/Strength ROM Lower Extremities Right LE N/A, Left LE WFLs all planes Strength Lower Extremities Right LE 4-/5 all planes except right ankle. Left LE 4/5 all planes Sensory Vision: Functional Hearing: Functional Sensation Right Lower Extremit: Intact Sensation Left Lower Extremity: Intact Transfers Roll Left & Right (QC): 4 (CGA) Sit to Lying (QC): 4 (CGA) Lying to Sitting/Side of Bed(Q: 4 (CGA) Sit to Stand (QC): 4 (CGA) Chair/Dmc-tj-Ycnfp Xfer(QC): 4 (CGA) Toilet Transfer (QC): 4 (CGA) Car Transfer (QC): 4 Gait Does the Patient Walk?: Yes Mode of Locomotion: Walk Anticipated Mode of Locomotion: Walk Walk 10 feet (QC): 3 Walk 50 ft with 2 Turns(QC): 88 Walk 150 ft (QC): 88 Walking 10ft/uneven surface-QC: 88 Distance: 15 Gait Assistive Device: FWW Comments/Gait Description Patient ambulates with hop to gait pattern on the left LE. He is able to maintain NWB right LE ~50% of the time, however does require verbal cues Wheelchair Training Does the Pt Use a Wheelchair?: Yes Distance: 100 Wheel 50 ft with 2 turns (QC): 5 Wheel 150 ft (QC): 88 Type of Wheelchair: Manual Stairs #of Steps: 0 1 Step (curb) (QC): 88 4 Steps (QC): 88 12 Steps (QC): 88 Balance Sitting Static: Normal Sitting Dynamic: Good Standing Static: Poor Standing Dynamic: Poor Picking up an Object (QC): 88 Assessment/Needs Patient tolerated treatment and evaluation well. Requires CGA for all bed mobility and transfers. Patient ambulates 15 feet with FWW, with mod A and frequent verbal cues for right LE NWB. Patient ambulates with hop to gait pattern on the left LE. He is able to maintain NWB right LE ~50% of the time, however does require verbal cues. Discussed treatment with Dr. Long who confirmed patient was NWB right LE for three weeks from his admit date on 05-20-21. Patient is able to propel w/c 100 feet with SBA and verbal cues for obstacles and running into the wall. Patient in wheelchair post PT evaluation with OT for their evaluation. Rehab Potential: Fair Equipment Needs FWW, W/C, BSC, Shower chair PT Short Term Goals Short Term Goals Time Frame: Jun 07, 2021 Roll Left & Right: 5 Sit to lyin Lying to sitting on side of be: 5 Sit to stand: 5 Chair/joi-jz-jypqm transfer: 5 Toilet transfer: 5 Car transfer: 5 Walk 10 feet: 4 Walk 50 feet with two turns: 4 Walk 150 feet: 3 PT Residential Goals Residential Goals PT Residential Goals Time Frame: Jun 30, 2021 Roll Left & Right (QC): 6 Sit to Lying (QC): 6 Lying-Sitting on Side/Bed(QC): 6 Sit to Stand (QC): 6 Chair/Mrv-mp-Pgwjz Xfer(QC): 6 Toilet Transfer (QC): 6 Car Transfer (QC): 6 Does the Patient Walk: Yes Walk 10 feet (QC): 5 Walk 50ft with 2 Turns (QC): 5 Walk 150 ft (QC): 4 Walking 10ft on Uneven Surface: 4 1 Step (curb) (QC): 3 4 Steps (QC): 3 12 Steps (QC): 3 Picking up an Object (QC): 4 Does the Pt use WC or Scooter?: No Wheel 50 feet with 2 turns (QC: 88 Wheel 150 feet: 88 PT Plan Problem List Problem List: Activity Tolerance, Functional Strength, Safety, Balance, Gait, Transfer, Bed Mobility, ROM Treatment/Plan Treatment Plan: Continue Plan of Care Treatment Plan: Bed Mobility, Education, Functional Activity Mallika, Functional Strength, Group Therapy, Gait, Safety, Therapeutic Exercise, Transfers Treatment Duration: Jul 01, 2021 Frequency: At least 5 of 7 days/Wk (IRF) Estimated Hrs Per Day: 1.5 hours per day Patient and/or Family Agrees t: Yes Safety Risks/Education Patient Education: Gait Training, Transfer Techniques, W/C Management Teaching Recipient: Patient Teaching Methods: Demonstration, Discussion Response to Teaching: Reinforcement Needed Time/GCodes Time In: 1250 Time Out: 1300 Total Billed Treatment Time: 10 Total Billed Treatment Visit, PARTH KERR PT May 24, 2021 13:32
--- NOTE | 2021-05-24 13:35 | Physical Therapy Daily Note ---
PT Daily Note-Current Subjective Pt agreeable. Pt denies pain at beginning of treatment and rated pain end of treatment 3/10 (R) LE. Nursing notified. Pt and spouse report they have a tiny home that will be difficult to navigate with FWW, w/c or scooter. Mental Status Patient Orientation: Person, Place, Situation Transfers SCALE: Activities may be completed with or without assistive devices. 9-Tfqqmbdyut-zdifgrd completes the activity by him/herself with no assistance from a helper. 5-Set-up or Clean-up Assistance-helper sets up or cleans up; patient completes activity. [place] assists only prior to or following the activity. 4-Supervision or Touching Assistance-helper provides verbal cues and/or touching/steadying and/or contact guard assistance as patient completes activity. Assistance may be provided throughout the activity or intermittently. 3-Partial/Moderate Assistance-helper does LESS THAN HALF the effort. [place] lifts, holds or supports trunk or limbs, but provides less than half the effort. 2-Substantial/Maximal Assistance-helper does MORE THAN HALF the effort. [place] lifts or holds trunk or limbs and provides more than half the effort. 5-Dfkxvrsoc-cgwbdk does ALL the effort. Patient does none of the effort to complete the activity. Or, the assistance of 2 or more helpers is required for the patient to complete the activity. If activity was not attempted, code reason: 7-Patient Refused. 9-Not Applicable-not attempted and the patient did not perform the activity before the current illness, exacerbation or injury. 10-Not Attempted due to Environmental Limitations-(lack of equipment, weather restraints, etc.). 88-Not Attempted due to Medical Conditions or Safety Concerns. CGA-min A for all transfers with max vc's to maintain NWB (R) LE and vc's for sequencing. Gait Training Gait Assistive Device: Parallel Bars Pt amb until fatigue x 14' with FWW and close f/u of w/c. Pt able to maintain NWB (R) LE and hop. Pt amb in //bars 3 x 14ft, NWB (R) LE hopping to advance with CGA. Wheelchair Training Type of Wheelchair: Manual Pt propelled W/c (I) 2 x 100ft. Exercises Supine Ex: Heel Slides, Straight leg raise, Hip abd/add Supine Reps: 20 Treatments Co-treatment due skill of 2 clinicians required which a certified rehabilitation counselor could not perform in order to coordinate UE/LEs, decrease fall risk, focus on higher level balance tasks, and due to pt's limitations in strength, activity tolerance, mobility and transfers. PT focused on LE placement, transfers/mobility, and gross overall movement. OT focused on UE placement, cues for sequencing and safety, and ADLs. Treatment included gait training, shower, LE ther ex, w/c mobility training and transfer training. Assessment Current Status: Good Progress Pt resting in bed with call light in reach and all needs met. Pt showed improved ability to maneuver in FWW, improved ability to clear foot during gait training in //bars over the course of treatment. Pt was able to maintain NWB status (R) LE 100% of the time but does require continual vc's and reminders. Pt appeared to do well with all activities with rest breaks as needed. Pt used portable O2 during therapy session 2L/min and O2 insitu post therapy. Pt should do very well with rehab. PT Short Term Goals Short Term Goals Time Frame: Jun 07, 2021 Roll Left & Right: 5 Sit to lyin Lying to sitting on side of be: 5 Sit to stand: 5 Chair/asf-pj-fsdis transfer: 5 Toilet transfer: 5 Car transfer: 5 Walk 10 feet: 4 Walk 50 feet with two turns: 4 Walk 150 feet: 3 PT Benefit Specialist Goals Benefit Specialist Goals PT Benefit Specialist Goals Time Frame: Jun 30, 2021 Roll Left & Right (QC): 6 Sit to Lying (QC): 6 Lying-Sitting on Side/Bed(QC): 6 Sit to Stand (QC): 6 Chair/Ekn-ho-Tipxa Xfer(QC): 6 Toilet Transfer (QC): 6 Car Transfer (QC): 6 Does the Patient Walk: Yes Walk 10 feet (QC): 5 Walk 50ft with 2 Turns (QC): 5 Walk 150 ft (QC): 4 Walking 10ft on Uneven Surface: 4 1 Step (curb) (QC): 3 4 Steps (QC): 3 12 Steps (QC): 3 Picking up an Object (QC): 4 Does the Pt use WC or Scooter?: No Wheel 50 feet with 2 turns (QC: 88 Wheel 150 feet: 88 PT Plan Treatment/Plan Treatment Plan: Continue Plan of Care Treatment Plan: Bed Mobility, Education, Functional Activity Mallika, Functional Strength, Group Therapy, Gait, Safety, Therapeutic Exercise, Transfers Treatment Duration: Jul 01, 2021 Frequency: At least 5 of 7 days/Wk (IRF) Estimated Hrs Per Day: 1.5 hours per day Patient and/or Family Agrees t: Yes Time/GCodes Time In: 1310 Time Out: 1430 Total Billed Treatment Time: 80 Total Billed Treatment 1, gait 10', FA 70' (Co-treatment with OT x 80') YONIS CERON CPTA May 24, 2021 13:35
--- NOTE | 2021-05-24 14:49 | Occupational Therapy Eval ---
OT Evaluation-General/PLF Medical Diagnosis Admission Date May 24, 2021 at 12:50 Medical Diagnosis: ventricular tachycardia, R distal fibular fx Onset Date: May 19, 2021 Therapy Diagnosis Therapy Diagnosis: decreased ADL status Height/Weight Height (Feet): 6 Height (Inches): 1.00 Weight (Pounds): 235 Precautions Precautions/Isolations: Fall Prevention, Standard Precautions Weight Bear Status Weight Bearing Restriction: Non Weight Bearing Location Restriction: R LE Patient 3 weeks NWB right LE from admit on 05-20-21; Reassess 06-10-21 Referral Physician: Dr. Maciel Referral Reason: Evaluation/Treatment Medical History Additional Medical History BPH DM, arrhythmogenic R ventricular dysplasia, cardiomyopathy, GOUT Current History presents after episode of syncope where pt fell in parking lot, injuring R ankle. On arrival to ED pt hypotensive and tachycardic, s/p cardioversion 05/19/21. X-Ray revealed R distal fibular fx, non-displaced. Social History Home: Single Level Current Living Status: Friend Entry Into Home: Stairs With Railing Steps Into Home: 1 ADL-Prior Level of Function SCALE: Activities may be completed with or without assistive devices. 4-Ivttdsxvtd-vplmlby completes the activity by him/herself with no assistance from a helper. 5-Set-up or Clean-up Assistance-helper sets up or cleans up; patient completes activity. [place] assists only prior to or following the activity. 4-Supervision or Touching Assistance-helper provides verbal cues and/or touching/steadying and/or contact guard assistance as patient completes activity. Assistance may be provided throughout the activity or intermittently. 3-Partial/Moderate Assistance-helper does LESS THAN HALF the effort. [place] lifts, holds or supports trunk or limbs, but provides less than half the effort. 2-Substantial/Maximal Assistance-helper does MORE THAN HALF the effort. [place] lifts or holds trunk or limbs and provides more than half the effort. 8-Czaqpryge-kccebx does ALL the effort. Patient does none of the effort to complete the activity. Or, the assistance of 2 or more helpers is required for the patient to complete the activity. If activity was not attempted, code reason: 7-Patient Refused. 9-Not Applicable-not attempted and the patient did not perform the activity b efore the current illness, exacerbation or injury. 10-Not Attempted due to Environmental Limitations-(lack of equipment, weather restraints, etc.). 88-Not Attempted due to Medical Conditions or Safety Concerns. ADL PLOF Comments Pt reports IND with ADLs and functional mobility without AD at PLOF. Pt's friend indicates their house is very full of stuff, it is only a 1 bedroom house with 2 people, 2 dogs, and 1 cat, and stuff everywhere. Pt's friend indicates a w/c and walker are unable to be used in the house because of how much stuff there is. The walker will not fit through the bathroom doors. Pt's friend indicates the only option for them are crutches, and even then crutches would have to be used sideways at times. They have a tub/shower combo with a bath bench. No GBs in bathrooms, as they have been unable to locate studs. Self Care: Independent Functional Cognition: Independent DME/Equipment Comments Pt owns walker, w/c, cane, bath bench OT Current Status Subjective Pt agreeable to OT evaluation then OT/PT cotreat, rates pain in RLE 3/10 post tx. Mental Status/Objective Patient Orientation: Person, Place, Situation Attachments: Oxygen (2L) Current Glasses/Contacts: Yes Hearing Aids: No Dentures/Partials: No Hand Dominance: Right Upper Extremity ROM WFL BUEs. BUE shoulder flexion to approx 160 degrees. LUE limited in supination, able to bring forearm to neutral but not turn palm upwards Upper Extremity Coordination WFL, slightly decreased coordination noted with UE exercises. RUE lagged behind LUE with overhead movements. Pt correlates this with having broken both of his arms in the past. Upper Extremity Sensation WFL Upper Extremity Strength grossly 4+/5 BUEs ADL-Treatment Eating (QC): 6 Oral Hygiene (QC): 5 (per clincial judgment, set up seated.) Shower/Bathe Self (QC): 4 (SBA, pt completed fully in sitting.) Upper Body Dressing (QC): 5 (set up assist) Lower Body Dressing (QC): 1 (Assist x2 in stand to manage pants up) On/Off Footwear (QC): 3 (Pt able to doff/don L gripper socks. Min A with doffing R CAM boot, total assist with donning R CAM boot.) Toileting Hygiene (QC): 1 (Assist x2 in stand for pant hike.) Other Treatments OT evaluation complete. OT/PT cotreat due skill of 2 clinicians required which a veterans rehabilitation counselor could not perform in order to coordinate UE/LEs, decrease fall risk, focus on higher level balance tasks, and due to pt's limitations in strength, activity tolerance, mobility and transfers. PT focused on LE placement, transfers/mobility, and gross overall movement. OT focused on UE placement, cues for sequencing and safety, and ADLs. Pt performed "hopping" with FWW, 14' with w/c follow. Pt then taken into bathroom, transferred from w/c to [facility]. Pt doffed clothes at VA then completed shower. Pt threaded LE clothing seated on [facility] (VCs to remain seated until CAM boot donned), OT assisted with donning CAM boot. Pt then performed stand at [facility], assist x2 in stand to manage pant up, then SPT to w/c. Pt performed w/c mobility to therapy gym, "hopping" in // bars 3 x 14', NWB RLE, CGA. Pt propelled w/c back to his room, transferring to bed and supine. Pt completed x15 reps BUE exercises: shoulder flexion, front punch. Post tx, pt in bed, call light in reach and all needs met. CGA-min A with transfers with max VCs to maintain NWB RLE. VCs for sequencing. Pt able to ambulate 14-15' with FWW, mod A-CGA with verbal cues to maintain NWB RLE using hop to gait. Education OT Patient Education: Correct positioning, Energy conservation, Exercise progr am, Modified ADL techniques, Progress toward Goal/Update tx plan, Purpose of tx/functional activities Teaching Recipient: Patient Teaching Methods: Discussion Response to Teaching: Verbalize Understanding OT Short Term Goals Short Term Goals Time Frame: Jun 07, 2021 Toileting hygiene: 3 Shower/bathe self: 5 Lower body dressin Putting on/taking off footwear: 4 OT Fci Goals Fci Goals Time Frame: Jun 30, 2021 Eating (QC): 6 Oral Hygiene (QC): 6 Toileting Hygiene (QC): 6 Shower/Bathe Self (QC): 6 Upper Body Dressing (QC): 6 Lower Body Dressing (QC): 6 On/Off Footwear (QC): 6 Additional Goals: 1-Demonstrate ADL Tasks, 2-Verbalize Understanding, 3- ImproveStrength/Mallika 1=Demonstrate adherence to instructed precautions during ADL tasks. 2=Patient will verbalize/demonstrate understanding of assistive devices/modifications for ADL. 3=Patient will improve strength/tolerance for activity to enable patient to perform ADL's. OT Education/Plan Problem List/Assessment Assessment: Decreased Activ Tolerance, Decreased Safety Aware, Decreased UE Strength, Impaired Coordination, Impaired Funct Balance, Impaired I ADL's, Impaired Self-Care Skills Discharge Recommendations Plan/Recommendations: Continue POC Treatment Plan/Plan of Care Patient would benefit from OT for education, treatment and training to promote independence in ADL's, mobility, safety and/or upper extremity function for ADL's. Plan of Care: ADL Retraining, Functional Mobility, Group Exercise/Act as Ind, UE Funct Exercise/Act Treatment Duration: Jun 30, 2021 Frequency: At least 5 of 7 days/Wk (IRF) Estimated Hrs Per Day: 1.5 hours per day Agreement: Yes Rehab Potential: Fair Time/GCodes Start Time: 13:00 Stop Time: 14:30 Total Time Billed (hr/min): 90 Billed Treatment Time OT eval x10', Cotreat x80' 1, EVM (10'), ADL 2 (35'), FA 2 (30') EX (15') JOSY RAO OT May 24, 2021 14:49
[2021-05-24] MEDS ORDERED: CATHETER FLUSH 10 ML SYR IVP PRN (16:15)
--- NOTE | 2021-05-24 16:27 | Progress Note ---
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 Reported nausea and vomiting prior to syncopal episode and subsequently collapsed injuring his R ankle. He had seen his planer feeder Dr. Guzman at the [facility] in [place] that day for an echo that did not reveal any concerning signs. Patient denied to be evaluated in the hospital that day. Then on 05/19, patient still felt lightheaded and weak and then called EMS. At [facility] ER, patient was found tachycardic, hypotensive, and pain over his right lateral malleolus. Denied any head, chest, or neck pain at that time. IV amiodarone drip was started and succesfull cardioverion. Ankle Xray showed nondisplaced R distal fibular fracture. On 05/23, patient feels he is able to go home but is unable to care for him at this level. Admitted to inpatient rehab unit at [facility] on 05/24 following insurance approval. Reports having first bowel movement today in past 10 days. Patient will need PT and OT. Ortho and cardiology consulted and should be following. PLOF was independent with use of cane for ambulation. PMH: T2DM, BPH, Arrhythmogenic Right Ventricular Dysplasia, Gout, Hypercholesterolemia PSH: Defibrillator, Pacemaker, and Orthopedic Allergies: Unknown Cholesterol med Meds: Acetaminophen (Tylenol Extra Strength) 500 Mg Tablet, 1,000 MG PO Q8H PRN for PAIN-MILD (1-4) OR TEMPATURE Albuterol Sulfate (Proair Hfa) 1 Puff Puff, 2 PUFF IH QID PRN for SHORTNESS OF BREATH Allopurinol (Allopurinol) 100 Mg Tablet, 100 MG PO DAILY Amlodipine Besylate (Amlodipine Besylate) 5 Mg Tablet, 2.5 MG PO 1200 Antiox #11/Om3/Dha/Epa/Lut/Salvador (Eye Health Adult 50+ Softgel) 1 Each Capsule, 1 EACH PO BID Ascorbate Calcium (Vitamin C) 500 Mg Tablet, 500 MG PO DAILY Aspirin (Aspirin EC) 81 Mg Tablet.dr, 81 MG PO DAILY Atorvastatin Calcium (Atorvastatin Calcium) 80 Mg Tablet, 40 MG PO HS Cyanocobalamin (Vitamin B-12) (Vitamin B-12) 1,000 Mcg Tablet, 1,000 MCG PO DAILY Cyclobenzaprine HCl (Cyclobenzaprine HCl) 10 Mg Tablet, 10 MG PO HS PRN for MUSCLE SPASMS Hydrochlorothiazide (Hydrochlorothiazide) 25 Mg Tablet, 12.5 MG PO Lisinopril (Lisinopril) 40 Mg Tablet, 40 MG PO DAILY Multivitamin with Minerals (Multivitamins with Minerals) 1 Each Tablet, 1 EACH PO DAILY Sotalol HCl (Sotalol) 80 Mg Tablet, 40 MG PO BID Tamsulosin HCl (Flomax) 0.4 Mg Cap, 0.4 MG PO DAILY SH: , Former smoker, Denies any current tobacco, alcohol, or recreational drug use FH: Father (Heart attack; Cardiomyopathy) ROS: Constitutional: No chills, No fever, No weakness EENTM: No ear pain, No blurred vision, No eye pain, No throat pain Respiratory: No cough, No dyspnea on exertion, No hemoptysis Cardiovascular: No chest pain, No edema, No palpitations Gastrointestinal: No abdominal pain, No constipation, No diarrhea Genitourinary: No dysuria, No frequency, No incontinence Musculoskeletal: No back pain, No muscle pain, No muscle weakness Skin: No lesions, No lumps, No rash Psychiatric/Neurological: Denies Headache, Denies Numbness, Denies Tingling PE: General Appearance: No Apparent Distress, WD/WN HEENT: PERRL/EOMI, TMs Normal Neck: Full Range of Motion, Normal Inspection, Non Tender, Supple Respiratory: Chest Non Tender, Lungs Clear, Normal Breath Sounds, No Accessory Muscle Use, No Respiratory Distress Cardiovascular: No Edema, Normal Peripheral Pulses Gastrointestinal: Normal Bowel Sounds, Non Tender, Soft Back: Normal Inspection Extremity: Normal Range of Motion, Other (R Distal LE in Boot) Neurologic/Psychiatric: Alert, Oriented x3, Normal Mood/Affect Skin: Normal Color, Warm/Dry Lymphatic: No Adenopathy Assessment: R distal fibular fracture NSTEMI, s/p cardioversion on 05/19 Ventricular tachycardia Cardiogenic shock, resolved T2DM Arrhythmogenic Right Ventricular Dysplasia NEVAEH, resolved BPH DVT risk Urinary retention Chronic Constipation Plan: PT OT Sliding scale insulin Flomax for urinary retention Non weight bearing status on right leg DVT ppx: Lovenox Cardiology follow, continue Mexiletine, Sotalol Ortho follow, boot in place JESSIKA POTTS DO 05/25/21 0535: Supervisory-Addendum Brief Verification & Attestation Participated in pt care: history, MDM, physical Personally performed: exam, history, MDM, supervision of care Care discussed with: Medical Student Procedures: n/a Results interpretation: Verified all documentation Verification and Attestation of Medical Student E/M Service A medical student performed and documented this service in my presence. I reviewed and verified all information documented by the medical student and made modifications to such information, when appropriate. I personally performed the physical exam and medical decision making. Jessika Potts May 25, 2021,05:34 AURE AUSTIN May 24, 2021 16:27 JESSIKA POTTS DO May 25, 2021 05:35
[2021-05-24] MEDS ORDERED: polyethylene glycoL POWDER 17 GM (MIRALAX) PACK PO PRN (18:30)
[2021-05-24] MEDS ORDERED: ONDANSETRON 4 MG/2 ML (SDV) Z0FRAN IV PRN (18:30)
[2021-05-24] MEDS ORDERED: ANTACID SUSP 30 ML UDC (MYLANTA) PO PRN (18:30)
[2021-05-24] MEDS ORDERED: PATIENT MAY USE OWN MEDS, ALL PO SCH (18:30)
[2021-05-24] MEDS: ENOXAPARIN 40 MG/0.4 ML (LOVENOX) SYR SC SCH (18:48)
[2021-05-24 20:06] VITALS: BP 143/84
[2021-05-24] MEDS: SENNA W/DOCUSATE (SENOKOT S) TABLET PO SCH (20:19)
[2021-05-24] MEDS: DOCUSATE SODIUM 100 MG (COLACE) CAP PO SCH (20:19)
[2021-05-24] MEDS: SOTALOL 80 MG (BETAPACE) TAB PO SCH (20:19)
[2021-05-24] MEDS: polyethylene glycoL POWDER 17 GM (MIRALAX) PACK PO SCH (20:29)
[2021-05-24] MEDS: MEXILETINE 150 MG (MEXITIL) CAPSULE PO SCH (20:40)
[2021-05-24] MEDS: CATHETER FLUSH 10 ML SYR IVP SCH (20:41)
[2021-05-24] MEDS: inSUlin ASPART (NovoLOG) 1 UNIT/0.01 ML (CHARGE PER UNIT) SC SCH (20:49)
--- NOTE | 2021-05-25 04:56 | PM&R Post Admission Assessment ---
PM&R HP Date of Visit: May 24, 2021 Time of Visit: 14:00 History of Present Illness Late entry, patient was seen on admit 05/24/21 at 1400. CC: Debility from right fibula fracture HPI: This is a [facility] pt in [place] who presented to the in-patient rehab unit in need of strengthening and aggressive rehab following a right fibula fracture. He [facility]'t have a [facility] Sustained a fall, conservative management recommended per orthopedics. Dr. Albright placed in a cam boot and currently he will be in need of aggressive assisted devices and management in order to return home. He lives with his partner Leia. 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 Reported nausea and vomiting prior to syncopal episode and subsequently collapsed injuring his R ankle. He had seen his head baggage porter Dr. Guzman at the [facility] in [place] that day for an echo that did not reveal any concerning signs. Patient denied to be evaluated in the hospital that day. Then on 05/19, patient still felt lightheaded and weak and then called EMS. At [facility] ER, patient was found tachycardic, hypotensive, and pain over his right lateral malleolus. Denied any head, chest, or neck pain at that time. IV amiodarone drip was started and succesfull cardioverion. Ankle Xray showed nondisplaced R distal fibular fracture. On 05/23, patient feels he is able to go home but is unable to care for him at this level. Admitted to inpatient rehab unit at [facility] on 05/24 following insurance approval. Reports having first bowel movement today in past 10 days. Patient will need PT and OT. Ortho and cardiology consulted and should be following. PLOF was independent with use of cane for ambulation. PMH: T2DM, BPH, Arrhythmogenic Right Ventricular Dysplasia, Gout, Hypercholesterolemia PSH: Defibrillator, Pacemaker, and Orthopedic Allergies: Unknown Cholesterol med Meds: Acetaminophen (Tylenol Extra Strength) 500 Mg Tablet, 1,000 MG PO Q8H PRN for PAIN-MILD (1-4) OR TEMPATURE Albuterol Sulfate (Proair Hfa) 1 Puff Puff, 2 PUFF IH QID PRN for SHORTNESS OF BREATH Allopurinol (Allopurinol) 100 Mg Tablet, 100 MG PO DAILY Amlodipine Besylate (Amlodipine Besylate) 5 Mg Tablet, 2.5 MG PO 1200 Antiox #11/Om3/Dha/Epa/Lut/Salvador (Eye Health Adult 50+ Softgel) 1 Each Capsule, 1 EACH PO BID Ascorbate Calcium (Vitamin C) 500 Mg Tablet, 500 MG PO DAILY Aspirin (Aspirin EC) 81 Mg Tablet.dr, 81 MG PO DAILY Atorvastatin Calcium (Atorvastatin Calcium) 80 Mg Tablet, 40 MG PO HS Cyanocobalamin (Vitamin B-12) (Vitamin B-12) 1,000 Mcg Tablet, 1,000 MCG PO DAILY Cyclobenzaprine HCl (Cyclobenzaprine HCl) 10 Mg Tablet, 10 MG PO HS PRN for MUSCLE SPASMS Hydrochlorothiazide (Hydrochlorothiazide) 25 Mg Tablet, 12.5 MG PO Lisinopril (Lisinopril) 40 Mg Tablet, 40 MG PO DAILY Multivitamin with Minerals (Multivitamins with Minerals) 1 Each Tablet, 1 EACH PO DAILY Sotalol HCl (Sotalol) 80 Mg Tablet, 40 MG PO BID Tamsulosin HCl (Flomax) 0.4 Mg Cap, 0.4 MG PO DAILY SH: , Former smoker, Denies any current tobacco, alcohol, or recreational drug use FH: Father (Heart attack; Cardiomyopathy) ROS: Constitutional: No chills, No fever, No weakness EENTM: No ear pain, No blurred vision, No eye pain, No throat pain Respiratory: No cough, No dyspnea on exertion, No hemoptysis Cardiovascular: No chest pain, No edema, No palpitations Gastrointestinal: No abdominal pain, No constipation, No diarrhea Genitourinary: No dysuria, No frequency, No incontinence Musculoskeletal: No back pain, No muscle pain, No muscle weakness Skin: No lesions, No lumps, No rash Psychiatric/Neurological: Denies Headache, Denies Numbness, Denies Tingling PE: General Appearance: No Apparent Distress, WD/WN HEENT: PERRL/EOMI, TMs Normal Neck: Full Range of Motion, Normal Inspection, Non Tender, Supple Respiratory: Chest Non Tender, Lungs Clear, Normal Breath Sounds, No Accessory Muscle Use, No Respiratory Distress Cardiovascular: No Edema, Normal Peripheral Pulses Gastrointestinal: Normal Bowel Sounds, Non Tender, Soft Back: Normal Inspection Extremity: Normal Range of Motion, Other (R Distal LE in Boot) Neurologic/Psychiatric: Alert, Oriented x3, Normal Mood/Affect Skin: Normal Color, Warm/Dry Lymphatic: No Adenopathy Assessment: R distal fibular fracture NSTEMI, s/p cardioversion on 05/19 Ventricular tachycardia Cardiogenic shock, resolved T2DM Arrhythmogenic Right Ventricular Dysplasia NEVAEH, resolved BPH DVT risk Urinary retention Chronic Constipation Plan: PT OT Sliding scale insulin Flomax for urinary retention Non weight bearing status on right leg DVT ppx: Lovenox Cardiology follow, continue Mexiletine, Sotalol Ortho follow, boot in place Past Pznodly-Nocdmi-Fbhnpj Hx Past Med/Social Hx: Reviewed Nursing Past Med/Soc Hx, Reviewed and Corrections made Patient Social History Marrital Status: cohabiting Employed/Student: retired Alcohol Use: Denies Use Smoking Status: Former Smoker Recent Hopitalizations: No Immunizations Up To Date Date of Influenza Vaccine: Jan 02, 2021 Past Medical History Surgeries: Defibrillator, Orthopedic, Pacemaker Cardiac: Cardiomyopathy, High Cholesterol Gastrointestinal: Chronic Constipation Musculoskeletal: Gout Endocrine: Diabetes, Non-Insulin dep Prior Level of Function Bed Mobility: 6 Transfers: 6 Gait: 6 Stairs: 6 Indoor Mobility (Ambulation): Independent Stairs: Independent Prior Devices Use: Other-see list below Cane Self Care: Independent Functional Cognition: Independent Current Level of Fuctioning Roll Left to Right: 4 (CGA) Sit to Lyin (CGA) Lying to Sitting/Side of Bed: 4 (CGA) Sit to Stand: 4 (CGA) Chair/Guk-qs-Dtfla Xfer: 4 (CGA) Car Transfer: 4 Does the Patient Walk: Yes Mode of Locomotion: Walk Anticipated Mode of Locomotion: Walk Walk 10 feet: 3 Walk 50 ft with 2 Turns: 88 Walk 150 ft: 88 Walking 10ft on uneven surface: 88 Gait Assistive Device: Parallel Bars Does the Pt Use a Wheelchair: Yes Wheelchair Distance: 100 Wheel 50 ft with 2 turns: 5 Wheel 150 ft: 88 Type of Wheelchair: Manual #of Steps: 0 1 Step (curb): 88 4 Steps: 88 12 Steps: 88 Picking up an Object: 88 Eatin Oral Hygiene: 5 (per clincial judgment, set up seated.) Shower/Bathe Self: 4 (SBA, pt completed fully in sitting.) Upper Body Dressin (set up assist) Lower Body Dressin (Assist x2 in stand to manage pants up) On/Off Footwear: 3 (Pt able to doff/don L gripper socks. Min A with doffing R CAM boot, total assist with donning R CAM boot.) Toileting Hygiene: 1 (Assist x2 in stand for pant hike.) PM&R Allergy/Meds/Data Review Allergies Uncoded Allergies: UNKNOWN CHOLESTEROL MED. (Allergy, Unknown, 02/12/18) Home Medications Scheduled Allopurinol (Allopurinol), 100 MG PO DAILY, (Reported) Amlodipine Besylate (Amlodipine Besylate), 2.5 MG PO 1200, (Reported) Antiox #11/Om3/Dha/Epa/Lut/Salvador (Eye Health Adult 50+ Softgel), 1 EACH PO BID, (Reported) Ascorbate Calcium (Vitamin C), 500 MG PO DAILY, (Reported) Aspirin (Aspirin EC), 81 MG PO DAILY, (Reported) Atorvastatin Calcium (Atorvastatin Calcium), 40 MG PO HS, (Reported) Cyanocobalamin (Vitamin B-12) (Vitamin B-12), 1,000 MCG PO DAILY, (Reported) Lisinopril (Lisinopril), 40 MG PO DAILY, (Reported) Multivitamin with Minerals (Multivitamins with Minerals), 1 EACH PO DAILY, (Reported) Sotalol HCl (Sotalol), 40 MG PO BID, (Reported) Tamsulosin HCl (Flomax), 0.4 MG PO DAILY, (Reported) Scheduled PRN Acetaminophen (Tylenol Extra Strength), 1,000 MG PO Q8H PRN for PAIN-MILD (1-4) OR TEMPATURE, (Reported) Albuterol Sulfate (Proair Hfa), 2 PUFF IH QID PRN for SHORTNESS OF BREATH, (Reported) Cyclobenzaprine HCl (Cyclobenzaprine HCl), 10 MG PO HS PRN for MUSCLE SPASMS, (Reported) Miscellaneous Medications Hydrochlorothiazide (Hydrochlorothiazide), 12.5 MG PO, (Reported) Discontinued Medications Sotalol HCl (Betapace), 80 MG PO, (Reported) Discontinued Reason: Duplicate Order Current Medications Current Medications Reviewed Laboratory Data Laboratory Tests 05/24/21 16:18: Glucometer 124H 05/24/21 20:48: Glucometer 136H Review of Systems Constitutional: see HPI, malaise, weakness EENTM: no symptoms reported Respiratory: no symptoms reported Cardiovascular: no symptoms reported Gastrointestinal: no symptoms reported Genitourinary: other (Retention) Musculoskeletal: back pain Skin: no symptoms reported Psychiatric/Neurological: No Symptoms Reported All Other Systems Reviewed Negative Unless Noted: Yes Physical Exam Physical Exam Vital Signs Vital Signs - First Documented 05/24/21 12:50 Temp 36.0 Pulse 77 Resp 20 B/P (MAP) 151/83 (105) Pulse Ox 96 O2 Delivery Nasal Cannula O2 Flow Rate 2.00 Capillary Refill : Height, Weight, BMI Height: 6'1.00" Weight: 235lbs. oz. 106.168781wh; 31.68 BMI Method:Stated General Appearance: No Apparent Distress, WD/WN, Chronically ill Eyes: Bilateral Eye Normal Inspection, Bilateral Eye PERRL HEENT: PERRL/EOMI, Normal ENT Inspection, Pharynx Normal Neck: Full Range of Motion, Normal Inspection, Non Tender, Supple, Carotid Bruit Respiratory: Chest Non Tender, Lungs Clear, Normal Breath Sounds, No Accessory Muscle Use, No Respiratory Distress Cardiovascular: Regular Rate, Rhythm, No Edema, No Gallop, No JVD, No Murmur, Normal Peripheral Pulses Gastrointestinal: Normal Bowel Sounds, No Organomegaly, No Pulsatile Mass, Non Tender, Soft Back: Normal Inspection, No CVA Tenderness, No Vertebral Tenderness Extremity: Normal Capillary Refill, Normal Inspection, Normal Range of Motion (Except right leg in bed), Non Tender, No Calf Tenderness, No Pedal Edema Neurologic/Psychiatric: Alert, Oriented x3, No Motor/Sensory Deficits, Normal Mood/Affect, Abnormal Gait, Motor Weakness (Generalized) Skin: Normal Color, Warm/Dry Lymphatic: No Adenopathy PM&R Medical Assessment & Plan REHAB/MEDICAL ASSESSMENT AND PLAN: REHAB IMPAIRMENT GROUP: Cardiac dysfunction with right fibula fracture ETIOLOGIC DIAGNOSIS: Cardiac dysfunction with right fibula fracture The comorbidities that impact the patients function and/or functional outcome by: Right leg in boot, fall risk, cardiac arrhythmia, generalized weakness REHAB PLAN: The patient is being admitted to our comprehensive inpatient rehabilitation facility and can tolerate the intensity of service consisting of at least: 180 minutes of therapy a day, 5 out of 7 days a week Rehab treatment will consist of: PT and OT will focus on regaining function with use of assistive devices in order to return back to independent living The patient/family has a good understanding of our discharge process and will benefit from an interdisciplinary inpatient rehabilitation program. The patient has potential to make improvement and is in need of at least two of the following multidisciplinary therapies including but not limited to physical, occupational, speech, and prosthetics and orthotics. Additionally the patient will need services from respiratory, nutritional services, wound care, psychology, etc. (Customize this to each patient). Given the patients complex condition and risk of further medical complications, rehabilitation services cannot be safely or effectively provided at a lower level of care such as a fpc facility. BARRIERS TO DISCHARGE: Fall risk ESTIMATED LOS: 7 days DISPOSITION: Home with partner RELEVANT CHANGES SINCE PREADMISSION SCREENING: I have compared the patients medical and functional status at the time of the preadmission screening and there are: no changes PROGNOSIS: Good REHABILITATION GOALS: 1.PT and OT will focus on regaining function with use of assistive devices in order to return back to independent living All the above goals were reviewed with the patient and he/she is in agreement. By signing this document, I acknowledge that I have personally performed a full physical examination on this patient within 24 hours of admission to this inpatient rehabilitation facility and have determined the patient to be able to tolerate the above course of treatment at an intensive level for a reasonable period of time. I will be completing a detailed individualized Plan of Care for this patient by day #4 of the patients stay based upon the Preadmission Screen, the Post-Admission Evaluation, and the therapy evaluations. Admission Dx/Comorbidities: (1) Right fibular fracture Status: Acute ICD Codes: S82.401A - Unspecified fracture of shaft of right fibula, initial encounter for closed fracture (2) Ventricular tachycardia Status: Acute ICD Codes: I47.2 - Ventricular tachycardia (3) Cardiogenic shock Status: Acute ICD Codes: R57.0 - Cardiogenic shock (4) Arrhythmogenic right ventricular dysplasia Status: Acute ICD Codes: I42.8 - Other cardiomyopathies (5) Primary hypertension ICD Codes: I10 - Essential (primary) hypertension (6) Mixed hyperlipidemia ICD Codes: E78.2 - Mixed hyperlipidemia (7) Cerebral palsy ICD Codes: G80.9 - Cerebral palsy, unspecified Assessment/Plan Assessment and Plan Assess & Plan/Chief Complaint Assessment: R distal fibular fracture NSTEMI, s/p cardioversion on 05/19 Ventricular tachycardia Cardiogenic shock, resolved T2DM Arrhythmogenic Right Ventricular Dysplasia NEVAEH, resolved Cerebral palsy history BPH DVT risk Urinary retention Chronic Constipation Plan: Aggressive rehab Urinary retention management Appreciate cardiology VALERIY POTTS DO May 25, 2021 04:56
[2021-05-25] MEDS: ACETAMINOPHEN 325 MG TABLET PO PRN ×2 (05:42→09:11)
[2021-05-25] MEDS: MEXILETINE 150 MG (MEXITIL) CAPSULE PO SCH ×3 (05:42→21:16)
[2021-05-25] MEDS: CATHETER FLUSH 10 ML SYR IVP SCH ×3 (05:43→20:44)
[2021-05-25 05:50] LABS: BASOPHILS % (AUTO) 1 % (0-10); EOSINOPHILS # (AUTO) 0.2 10^3/uL (0.0-0.3); EOSINOPHILS % (AUTO) 4 % (0-10); HEMATOCRIT 37 % (40-54); HEMOGLOBIN 12.4 g/dL (13.3-17.7); LYMPHOCYTES # (AUTO) 1.2 10^3/uL (1.0-4.0); LYMPHOCYTES % (AUTO) 18 % (12-44); MEAN CORPUSCULAR HEMOGLOBIN 34 pg (25-34); MEAN CORPUSCULAR HGB CONC 34 g/dL (32-36); MEAN CORPUSCULAR VOLUME 100 fL (80-99); MEAN PLATELET VOLUME 10.5 fL (9.0-12.2); MONOCYTES # (AUTO) 0.6 10^3/uL (0.0-1.0); MONOCYTES % (AUTO) 9 % (0-12); NEUTROPHILS # (AUTO) 4.4 10^3/uL (1.8-7.8); NEUTROPHILS % (AUTO) 68 % (42-75); PLATELET COUNT 173 10^3/uL (130-400); WHITE BLOOD COUNT 6.4 10^3/uL (4.3-11.0)
[2021-05-25] MEDS ORDERED: LIDOCAINE UROJET 2% GEL 10 ML PKG ONE ×2 (05:55→15:19)
[2021-05-25 06:08] LABS: ALBUMIN 3.3 GM/DL (3.2-4.5); POTASSIUM 4.3 MMOL/L (3.6-5.0)
[2021-05-25 06:09] LABS: CALCIUM 9.2 MG/DL (8.5-10.1)
[2021-05-25] MEDS: BETHANECHOL 25 MG (URECHOLINE) TAB PO SCH ×4 (06:09→20:39)
--- NOTE | 2021-05-25 06:10 | PM&R Progress Note ---
Subjective HPI/CC On Admission Date Seen by Provider: May 25, 2021 Time Seen by Provider: 11:30 Subjective/Events-last exam 05/25/2021: Patient doing really well Settling in nicely Discontinue Accu-Cheks since he only checks his sugar twice weekly Straight cath required due to urinary retention Send off lab for UA due to cloudiness Pain is controlled on hydrocodone Review of Systems General: Fatigue, Malaise Genitourinary: Retention Objective Exam Vital Signs Vital Signs Date Time Temp Pulse Resp B/P (MAP) Pulse Ox O2 Delivery O2 Flow Rate FiO2 05/25/21 23:04 Room Air 05/25/21 19:48 36.4 64 16 117/74 (88) 96 05/24/21 18:29 2.00 Capillary Refill : General Appearance: No Apparent Distress, WD/WN, Chronically ill HEENT: PERRL/EOMI, Normal ENT Inspection, Pharynx Normal Neck: Full Range of Motion, Normal Inspection, Non Tender, Supple, Carotid Bruit Respiratory: Chest Non Tender, Lungs Clear, Normal Breath Sounds, No Accessory Muscle Use, No Respiratory Distress Cardiovascular: Regular Rate, Rhythm, No Edema, No Gallop, No JVD, No Murmur, Normal Peripheral Pulses Gastrointestinal: Normal Bowel Sounds, No Organomegaly, No Pulsatile Mass, Non Tender, Soft Back: Normal Inspection, No CVA Tenderness, No Vertebral Tenderness Extremity: Normal Capillary Refill, Normal Inspection, Normal Range of Motion (Except right leg in bed), Non Tender, No Calf Tenderness, No Pedal Edema Neurologic/Psychiatric: Alert, Oriented x3, No Motor/Sensory Deficits, Normal Mood/Affect, Abnormal Gait, Motor Weakness (Generalized) Skin: Normal Color, Warm/Dry Lymphatic: No Adenopathy Results/Procedures Lab Laboratory Tests 05/25/21 05:43 Patient resulted labs reviewed. FIM Transfers Therapy Code Descriptions/Definitions Functional [place] Measure: 0=Not Assessed/NA 4=Minimal Assistance 1=Total Assistance 5=Supervision or Setup 2=Maximal Assistance 6=Modified [place] 3=Moderate Assistance 7=Complete IndependenceSCALE: Activities may be completed with or without assistive devices. 0-Lecqwtclnh-qxhdgay completes the activity by him/herself with no assistance from a helper. 5-Set-up or Clean-up Assistance-helper sets up or cleans up; patient completes activity. [place] assists only prior to or following the activity. 4-Supervision or Touching Assistance-helper provides verbal cues and/or touching/steadying and/or contact guard assistance as patient completes activity. Assistance may be provided throughout the activity or intermittently. 3-Partial/Moderate Assistance-helper does LESS THAN HALF the effort. [place] lifts, holds or supports trunk or limbs, but provides less than half the effort. 2-Substantial/Maximal Assistance-helper does MORE THAN HALF the effort. [place] lifts or holds trunk or limbs and provides more than half the effort. 9-Ytakczoan-ipxyhq does ALL the effort. Patient does none of the effort to complete the activity. Or, the assistance of 2 or more helpers is required for the patient to complete the activity. If activity was not attempted, code reason: 7-Patient Refused. 9-Not Applicable-not attempted and the patient did not perform the activity before the current illness, exacerbation or injury. 10-Not Attempted due to Environmental Limitations-(lack of equipment, weather restraints, etc.). 88-Not Attempted due to Medical Conditions or Safety Concerns. Roll Left to Right (QC): 4 (CGA) Sit to Lying (QC): 4 (CGA) Sit to Stand (QC): 4 (CGA) Chair/Rhl-oq-Ffopy Xfer(QC): 4 (CGA) Car Transfer (QC): 4 Gait Training Does the Patient Walk?: Yes Walk 10 feet (QC): 3 Walk 50 ft with 2 Turns(QC): 88 Walk 150 ft (QC): 88 Walking 10ft/uneven surface-QC: 88 Gait Assistive Device: Parallel Bars Wheelchair Training Does the Pt Use a Wheelchair?: Yes Distance: 100 Wheel 50 ft with 2 turns (QC): 5 Wheel 150 ft (QC): 88 Type of Wheelchair: Manual Stair Training #of Steps: 0 1 Step (curb) (QC): 88 4 Steps (QC): 88 12 Steps (QC): 88 Balance Picking up an Object (QC): 88 ADL-Treatment Eating (QC): 6 Oral Hygiene (QC): 5 (per clincial judgment, set up seated.) Shower/Bathe Self (QC): 4 (SBA, pt completed fully in sitting.) Upper Body Dressing (QC): 5 (set up assist) Lower Body Dressing (QC): 1 (Assist x2 in stand to manage pants up) On/Off Footwear (QC): 3 (Pt able to doff/don L gripper socks. Min A with doffing R CAM boot, total assist with donning R CAM boot.) Toileting Hygiene (QC): 1 (Assist x2 in stand for pant hike.) Assessment/Plan Assessment and Plan Assess & Plan/Chief Complaint Assessment: R distal fibular fracture NSTEMI, s/p cardioversion on 05/19 Ventricular tachycardia Cardiogenic shock, resolved T2DM Arrhythmogenic Right Ventricular Dysplasia NEVAEH, resolved Cerebral palsy history BPH DVT risk Urinary retention Chronic Constipation Abnormal UA will await urine culture since no evidence of sepsis Plan: Aggressive rehab Urinary retention management Appreciate cardiology 05/25/2021: Await urine culture Aggressive rehab Pain control (1) Right fibular fracture Status: Acute (2) Ventricular tachycardia Status: Acute (3) Cardiogenic shock Status: Acute (4) Arrhythmogenic right ventricular dysplasia Status: Acute (5) Primary hypertension (6) Mixed hyperlipidemia (7) Cerebral palsy VALERIY POTTS DO May 25, 2021 06:10
--- NOTE | 2021-05-25 06:10 | Individualized Plan of Care ---
Individualized Plan of Care Rehab Nursing IPOC Order Admission Date May 24, 2021 at 12:50 Current Orders Orders Admission Order(Inpt,Obs,Sdc) (05/24/21 12:13) Vital Signs: Per Unit Policy ( 08,16,00 (05/24/21 12:13) Rob Huff (05/24/21 12:13) Sequential Compression Device (05/24/21 12:13) Occupational Therapy Rehab Ord (05/24/21 12:13) Speech Therapy Rehab Orders (05/24/21 12:13) Cbc With Automated Diff (05/25/21 06:00) Comprehensive Metabolic Panel (05/25/21 06:00) Precautions (Aru) (05/24/21 12:13) Weekly Weight WEEK (05/24/21 12:13) Rehab-Intensity Of Therapy (05/24/21 12:13) Initiate Admission Nursing Pro .admission (05/24/21 12:13) Alprazolam Tablet (Xanax Tablet) (05/24/21 12:15) Calcium Carbonate Chew Tablet (Antacid C (05/24/21 12:15) Diphenhydramine Tablet (Benadryl Tablet) (05/24/21 12:15) Docusate Sodium Capsule (Colace Capsule) (05/24/21 21:00) Docusate Sodium Capsule (Colace Capsule) (05/24/21 12:15) Bisacodyl Suppository (Dulcolax Supposit (05/24/21 12:15) Lactulose Oral Solution (Enulose Oral So (05/24/21 12:15) Na Phos/Na Biphos Enema (Fleet Enema Natan (05/24/21 12:15) Guaifenesin/Codeine Syrup (Robitussin Ac (05/24/21 12:15) Loperamide Tablet (Imodium Tablet) (05/24/21 12:15) Melatonin Tablet (Melatonin Tablet) (05/24/21 12:15) Polyethylene Glycol Powder Pkt (Miralax (05/24/21 21:00) Ondansetron Oral Dissolve Tab (Zofran (05/24/21 12:15) Senna S Tablet (Senokot S Tablet) (05/24/21 21:00) Acetaminophen Tablet/Caplet (Tylenol T (05/24/21 12:15) Code/Resuscitation (05/24/21 12:13) Initiate Admission Nursing Pro .admission (05/24/21 12:13) Garnett Fixer-Inpt Rehab Con (05/24/21 12:13) Rehab Nursing Orders-Ipoc (05/24/21 12:13) Physical Therapy Rehab Orders (05/24/21 12:13) Admission Arrival Bed Request (05/24/21 13:08) Patient Visit (05/24/21 ) Pt Eval Moderate Complexity (05/24/21 ) Cho 60g/M 1snack (16-2000 Ajay) (05/24/21 Dinner) Sodium Chloride Flush (Catheter Flush Sy (05/24/21 16:15) Sodium Chloride Flush (Catheter Flush Sy (05/24/21 22:00) Rt Request For Service (05/24/21 16:01) Accucheck Achs ACHS (05/24/21 18:20) Sequential Compression Device ONCE (05/24/21 18:20) Aspirin Enteric Coated Tablet (Ecotrin T (05/25/21 09:00) Atorvastatin Tablet (Lipitor Tablet) (05/24/21 21:00) Enoxaparin Injection (Lovenox Injection (05/24/21 18:30) Melatonin Tablet (Melatonin Tablet) (05/24/21 18:30) Mexiletine Capsule (Mexiletine Capsule) (05/24/21 22:00) Polyethylene Glycol Powder Pkt (Miralax (05/24/21 18:30) Antacid Suspension (Mylanta Suspension (05/24/21 18:30) Patient May Use Own Meds, All (Patient M (05/24/21 18:30) Sotalol Tablet (Betapace Tablet) (05/24/21 21:00) Tamsulosin Capsule (Flomax Capsule) (05/25/21 18:00) Acetaminophen Tablet/Caplet (Tylenol T (05/24/21 18:30) Ondansetron Injection (Zofran Injectio (05/24/21 18:30) Ondansetron Oral Dissolve Tab (Zofran (05/24/21 18:30) Amlodipine Tablet (Norvasc Tablet) (05/25/21 09:00) Insulin Aspart (Novolog) (Novolog (Charg (05/24/21 21:00) Lisinopril Tablet (Zestril Tablet) (05/25/21 09:00) Consult Cardiology (05/24/21 18:20) Consult Orthopedic Surgery (05/24/21 18:20) Bladder Scan-Straight Cath-Pos (05/24/21 18:23) Tamsulosin Capsule (Flomax Capsule) (05/25/21 09:00) Bethanechol Tablet (Urecholine Tablet) (05/25/21 06:00) Lidocaine 2% (Urojet) (Xylocaine Urojet) (05/25/21 05:55) Patient Visit (05/24/21 ) Gait Training, Ea 15 Min (05/24/21 ) Functional Activities, Ea 15 (05/24/21 ) Hydrocodone/Apap 10/325 Tablet (Lortab 1 (05/25/21 10:30) Hydrocodone/Apap 10/325 Tablet (Lortab 1 (05/25/21 10:28) Patient Visit (05/25/21 ) Speech Sound Lang Comp (05/25/21 ) Treat. Speech/Lang/Voice (05/25/21 ) Patient Visit (05/25/21 ) Exercise Therap, Ea 15 Min (05/25/21 ) Functional Activities, Ea 15 (05/25/21 ) Gait Training, Ea 15 Min (05/25/21 ) Wheelchair Mgmt/Propulsn 15min (05/25/21 ) Lidocaine 2% (Urojet) (Xylocaine Urojet) (05/25/21 15:30) Lidocaine 2% (Urojet) (Xylocaine Urojet) (05/25/21 15:19) Ua Culture If Indicated (05/25/21 16:20) Urine Culture (05/25/21 16:00) Rehab Nursing Orders: Ongoing Assess. of Cognitive Status, Ongoing Assess. of Function Status, Bladder Management, Bladder Scan, Bladder Training, Bowel Management, Bowel Training, Disease Management & Educaiton, DVT Prophylaxis, Fall Prevention, Fluid/Electrolyte/Nutrition Mgmt, Infection Prevention, Medication Management & Education, Management of Risks & Complications, Management of Skin Intergrity, Nutrition Management, Pain Management, Patient/Family Support, Weight Bearing Precaution Intensity of Therapy to be met Patient to be seen: Min.3h per day/5 of 7d PT IPOC Problem List: Activity Tolerance, Functional Strength, Safety, Balance, Gait, Transfer, Bed Mobility, ROM Treatment Plan: Continue Plan of Care Bed Mobility, Education, Functional Activity Mallika, Functional Strength, Group Therapy, Gait, Safety, Therapeutic Exercise, Transfers Treatment Duration: Jul 01, 2021 Frequency: At least 5 of 7 days/Wk (IRF) Estimated Hrs Per Day: 1.5 hours per day OT IPOC Problems: Decreased Activ Tolerance, Decreased Safety Aware, Decreased UE Strength, Impaired Coordination, Impaired Funct Balance, Impaired I ADL's, Impaired Self-Care Skills OT Treatment, Training and Edu: Yes Plan of Care: ADL Retraining, Functional Mobility, Group Exercise/Act as Ind, UE Funct Exercise/Act Treatment Duration: Jun 30, 2021 Frequency: At least 5 of 7 days/Wk (IRF) Estimated Hrs Per Day: 1.[address] IPOC Speech Therapy Treatment Plan: Discontinue ST Treatment Duration: May 25, 2021 Frequency: Modified Program (IRF) Estimated Hrs Per Day: Other Garnett Fixer/Case Mgmt Garnett Fixer/Case Managemen: Discharge Planning Dietitian/Internetworking Technician Dietitian/Internetworking Technician to monitor nutritional status and make changes and/or recommendations as needed and work with speech pathology on dietary upgrades as the occur. Physician IPOC Medical Issues being managed closely and that require the 24 hour availability of a physician: Recent dysfunction will require close monitoring with cardiology while undergoing aggressive rehab and will require continual evaluation for management of ventricular arrhythmia Medical Issues: Bowel/Bladder Function, DVT Prophylaxis, Falls Precautions, Fluid/Electrolyte/Nutrition Balance, Infection Protection, Pain Management, W eight Bearing Precautions Brief Synthesis of Preadmission Screen, Post-Admission Evaluation, and Therapy Evaluations: PT and OT will focus on regaining function with use of assistive devices while maintaining weightbearing restrictions in order to return back to independent living Medical Prognosis: Good Anticipated Length of Stay: 7 days VALERIY POTTS DO May 25, 2021 06:10
[2021-05-25 06:11] LABS: TOTAL PROTEIN 7.2 GM/DL (6.4-8.2)
[2021-05-25 06:12] LABS: BILIRUBIN,TOTAL 0.9 MG/DL (0.1-1.0)
[2021-05-25 06:14] LABS: CREATININE SERUM 1.1 MG/DL (0.60-1.30)
[2021-05-25] MEDS: inSUlin ASPART (NovoLOG) 1 UNIT/0.01 ML (CHARGE PER UNIT) SC SCH ×2 (06:56→11:17)
[2021-05-25] MEDS: ASPIRIN E.C. 81 MG (ECOTRIN) TAB PO SCH (07:38)
[2021-05-25] MEDS: amLODIPine 5 MG (NORVASC) TAB PO SCH (07:38)
[2021-05-25] MEDS: lisINopril 20 MG (PRINIVIL) TABLET PO SCH (07:38)
[2021-05-25] MEDS: TAMSULOSIN 0.4 MG (FLOMAX) CAP PO SCH ×2 (07:38→20:38)
[2021-05-25] MEDS: DOCUSATE SODIUM 100 MG (COLACE) CAP PO SCH ×2 (07:38→20:39)
[2021-05-25] MEDS: SENNA W/DOCUSATE (SENOKOT S) TABLET PO SCH ×2 (07:38→20:38)
[2021-05-25] MEDS: SOTALOL 80 MG (BETAPACE) TAB PO SCH ×2 (07:39→20:39)
[2021-05-25 07:42] VITALS: BP 155/90
--- NOTE | 2021-05-25 09:43 | Physical Therapy Daily Note ---
PT Daily Note-Current Subjective Pt. in bed upon arrival. Asks nurse for pain meds as he c/o pain at 5/10 right lower ext Pain Numeric Pain Scale: 5-Moderate Pain Location: Right Location Body Site: Ankle Pain Description: Ache Mental Status Patient Orientation: Person, Situation Attachments: Other-See Comments (boot Right) Transfers SCALE: Activities may be completed with or without assistive devices. 3-Nllnoaumyu-ztckopc completes the activity by him/herself with no assistance from a helper. 5-Set-up or Clean-up Assistance-helper sets up or cleans up; patient completes activity. [place] assists only prior to or following the activity. 4-Supervision or Touching Assistance-helper provides verbal cues and/or touching/steadying and/or contact guard assistance as patient completes activity. Assistance may be provided throughout the activity or intermittently. 3-Partial/Moderate Assistance-helper does LESS THAN HALF the effort. [place] lifts, holds or supports trunk or limbs, but provides less than half the effort. 2-Substantial/Maximal Assistance-helper does MORE THAN HALF the effort. [place] lifts or holds trunk or limbs and provides more than half the effort. 5-Dkbzvdrpd-noaclu does ALL the effort. Patient does none of the effort to complete the activity. Or, the assistance of 2 or more helpers is required for the patient to complete the activity. If activity was not attempted, code reason: 7-Patient Refused. 9-Not Applicable-not attempted and the patient did not perform the activity before the current illness, exacerbation or injury. 10-Not Attempted due to Environmental Limitations-(lack of equipment, weather restraints, etc.). 88-Not Attempted due to Medical Conditions or Safety Concerns. Roll Left & Right (QC): 6 Sit to Lying (QC): 6 Lying to Sitting/Side of Bed(Q: 6 Sit to Stand (QC): 3 Chair/Zrw-yw-Randl Xfer(QC): 3 SPT toward left min ot mod assist to prevent retropulsion and to maintain NWB RLE Weight Bearing Right Lower Extremity: Right Non Weight Bearing Left Lower Extremity: Left Full Weight Bearing Patient 3 weeks NWB right LE from admit on 05-20-21; Reassess 06-10-21 Exercises Supine Ex: Bridging (using LLE), Ankle pumps (left), Quad Set, Rolling, Glut sets, Heel Slides, Scooting, Straight leg raise, Hip abd/add Supine Reps: 15 Seated Therapy Exercises: Sit to stand (5), Long arc quads, Hip flexion Seated Reps: 10 Treatments supine therex in bed Dexter LEs, sup to sit TRFs, SPT to recliner, educated on use of recliner for LEs elevated as well as head reclined. call curtis and ph at hand Assessment Current Status: Good Progress conts difficulty maintaining NWB right PT Short Term Goals Short Term Goals Time Frame: Jun 07, 2021 Roll Left & Right: 5 Sit to lyin Lying to sitting on side of be: 5 Sit to stand: 5 Chair/ywr-no-zksfi transfer: 5 Toilet transfer: 5 Car transfer: 5 Walk 10 feet: 4 Walk 50 feet with two turns: 4 Walk 150 feet: 3 PT Vamp Cut Out Worker Goals Usp Goals PT Vamp Cut Out Worker Goals Time Frame: Jun 30, 2021 Roll Left & Right (QC): 6 Sit to Lying (QC): 6 Lying-Sitting on Side/Bed(QC): 6 Sit to Stand (QC): 6 Chair/Dnn-hk-Fbrsk Xfer(QC): 6 Toilet Transfer (QC): 6 Car Transfer (QC): 6 Does the Patient Walk: Yes Walk 10 feet (QC): 5 Walk 50ft with 2 Turns (QC): 5 Walk 150 ft (QC): 4 Walking 10ft on Uneven Surface: 4 1 Step (curb) (QC): 3 4 Steps (QC): 3 12 Steps (QC): 3 Picking up an Object (QC): 4 Does the Pt use WC or Scooter?: No Wheel 50 feet with 2 turns (QC: 88 Wheel 150 feet: 88 PT Plan Treatment/Plan Treatment Plan: Continue Plan of Care Treatment Plan: Bed Mobility, Education, Functional Activity Mallika, Functional Strength, Group Therapy, Gait, Safety, Therapeutic Exercise, Transfers Treatment Duration: Jul 01, 2021 Frequency: At least 5 of 7 days/Wk (IRF) Estimated Hrs Per Day: 1.5 hours per day Patient and/or Family Agrees t: Yes Safety Risks/Education Patient Education: Transfer Techniques, Correct Positioning, Disease Process, Safety Issues Teaching Recipient: Patient Teaching Methods: Demonstration, Discussion Response to Teaching: Verbalize Understanding, Return Demonstration, Reinforcement Needed Time/GCodes Time In: 900 Time Out: 930 Total Billed Treatment Time: 30 Total Billed Treatment 1,EX20m,FA10m JUSTIN MAYNARD RN PLASTICS May 25, 2021 09:43
[2021-05-25] MEDS: polyethylene glycoL POWDER 17 GM (MIRALAX) PACK PO SCH ×2 (10:19→20:39)
--- NOTE | 2021-05-25 10:55 | ST Cognitive Linguistic Eval ---
Speech Evaluation-General Medical Diagnosis ventricular tachycardia, R distal fibular fx Onset Date: May 19, 2021 Therapy Diagnosis Therapy Diagnosis: Intact Neurocognitive Skills Precautions Precautions: Fall Precautions/Isolations: Fall Prevention, Standard Precautions Referral Referring Physician: Dr. Jessika Maciel Reason for Referral: Evaluation/Treatment Medical History Current History The patient is a 76 year-old male with a past medical history of T2DM, BPH, right ventricular dysplasia, gout, and hypercholesterolemia, who presented to [facility] for recovery of R distal fibular fracture secondary to syncopal episode on 05/18/21. Reviewed History: Yes Social History Current Living Status: Friend Speech PLF-Current Status Prior Level of Function The patient denied concerns with his speech, language, cognition, or swallowing. The patient independently sipped on water via straw throughout the evaluation without the presence of s/s of suspected aspiration. Subjective The patient was seated upright in his recliner, awake and alert upon entrance to his room. The patient greeted the clinician appropriately and was agreeable to participation in the cognitive linguistic evaluation. Language Eval: Auditory Comprehends Simple Yes/No Ques: Functional Indent/Objects Multiple [place]: Functional Ident/Pics in Multiple [place]: Functional Follows 1-Step Commands: Functional Follows Complex Directions: Functional Follows General Conversations: Functional Language Eval: Verbal Language Completes Spontaneous Greeting: Functional Produces Auto, Serial Info: Functional Imitates Simple Words/Phrases: Functional Word Finding: Functional Requests Basic Needs: Functional States Basic Personal Info: Functional Expresses Complex Ideas: Functional Language Evaluation: Reading Follows Simple Written Direct: Functional Language Evaluation: Writing Writes to Simple Dictation: Functional Cognitive Patient Orientation The patient was independently oriented to self, location, month, day of week, date, and year. Objective Cognitive Domain Attention: WNL Memory: WNL Problem Solving: Functional Executive Functions: WNL Visuospatial Skills: WNL Composite Severity Rating: WNL Clock Drawing Severity Rating: WNL Objective Formal/Standardized Tests [facility] Mental Status ([facility]) Results The patient demonstrated a result of +29/30 on the SLUMS correlating to neurocognitive skills within normal limits. Oral Motor/Speech Production The patient does not display dysarthria or apraxia of speech at this time. The patient is 100% intelligible in known and unknown contexts. Impression The patient demonstrated neurocognitive skills within normal limits per SLUMS results. Skilled speech pathology is not warranted at this time. Speech Patient Assess Expression of Ideas/Wants: Expression (4) Understanding Verbal Content: Understands (4) Brief Interview-Mental Status: Yes Repetition of Three Words: Three (3) Temporal Orientation: Year: Correct (3) Temporal Orientation: Month: Accurate within 5 days(2) Temporal Orientation: Day: Correct (1) Recall : Wear to say "Sock": Yes, no cue required (2) Recall : Color: Yes, no cue required (2) Recall : Bed: Yes,after cueing (1) Memory/Recall Ability: Current season, Location of own room, Staff names and faces, That he or she is in a hsp/hsp unit Speech-Plan Treatment Plan Speech Therapy Treatment Plan: Discontinue ST Frequency: 1 time per week Estimated Hrs Per Day: .5 hour per day Rehab Potential: Fair Pt/Family Agrees to Plan: Yes Safety Risks/Education Teaching Recipient: Patient Teaching Methods: Discussion Response to Teaching: Verbalize Understanding Education Topics Provided: Results of SLMARCELA, Plan of Care Time Speech Therapy Time In: 10:00 Speech Therapy Time Out: 10:30 Total Billed Time: 30 Billed Treatment Time 1, EBENEZER HELLER ELIZABETH ST May 25, 2021 10:55
--- NOTE | 2021-05-25 11:51 | Occupational Ther Daily Note ---
OT Current Status-Daily Note Subjective Pt alert, sitting in recliner when OT entered. Pt agreed to therapy, no c/o pain reported. Mental Status/Objective Patient Orientation: Person, Place, Time, Situation ADL-Treatment Pt agreed to get dress for the day. Pt required assist to [facility] gown. After set up, pt donned UB dressing. Pt able to thread LLE through LB dressing, required min A to thread RLE. Pt required Mod A to hike LB dressing. Pt SPT from recliner to w/c with Min A. Pt required vc to remember no wb on RLE. Pt propelled self in w/c to bathroom sink. Pt completed oral hygiene independently while seated in w/c. Therapy Code Descriptions/Definitions Functional [place] Measure: 0=Not Assessed/NA 4=Minimal Assistance 1=Total Assistance 5=Supervision or Setup 2=Maximal Assistance 6=Modified [place] 3=Moderate Assistance 7=Complete IndependenceSCALE: Activities may be completed with or without assistive devices. 3-Ffombcbqsi-allrets completes the activity by him/herself with no assistance from a helper. 5-Set-up or Clean-up Assistance-helper sets up or cleans up; patient completes activity. [place] assists only prior to or following the activity. 4-Supervision or Touching Assistance-helper provides verbal cues and/or touching/steadying and/or contact guard assistance as patient completes activity. Assistance may be provided throughout the activity or intermittently. 3-Partial/Moderate Assistance-helper does LESS THAN HALF the effort. [place] lifts, holds or supports trunk or limbs, but provides less than half the effort. 2-Substantial/Maximal Assistance-helper does MORE THAN HALF the effort. [place] lifts or holds trunk or limbs and provides more than half the effort. 6-Euwmghyki-dzjogk does ALL the effort. Patient does none of the effort to complete the activity. Or, the assistance of 2 or more helpers is required for the patient to complete the activity. If activity was not attempted, code reason: 7-Patient Refused. 9-Not Applicable-not attempted and the patient did not perform the activity before the current illness, exacerbation or injury. 10-Not Attempted due to Environmental Limitations-(lack of equipment, weather restraints, etc.). 88-Not Attempted due to Medical Conditions or Safety Concerns. Oral Hygiene (QC): 6 (sitting in w/c) Upper Body Dressing (QC): 5 Lower Body Dressing (QC): 2 Other Treatment ([id number]) OT/PT cotreat due skill of 2 clinicians required which a rn rehabilitation could not perform in order to coordinate UE/LEs, decrease fall risk, focus on higher level balance tasks, and due to pt's limitations in strength, activity tolerance, mobility and transfers. PT focused on LE placement, transfers/mobility, and gross overall movement. OT focused on UE placement, cues for sequencing and safety, and ADLs. Pt participated in functional w/c mobility task in [facility] by completing figure 8 for increased independence and safety with w/c. Pt propelled self to therapy gym. Pt completed functional mobility task in parallel bar of "hopping" 3 x 14', NWB RLE, CGA. Pt particapted in nu- step at min A for increase BUE strengh for improved independence with ADLs. Pt was only able to tolerate 2 mins due to decreased activity tolerance. Pt SPT from nu step to w/c with Min A x2. Pt propelled self to room. Pt SPT from w/c to recliner with Min A x2. After session, pt sitting in recliner. All needs met and call light in reach. Education OT Patient Education: Correct positioning, Energy conservation, Exercise program, Modified ADL techniques, Progress toward Goal/Update tx plan, Purpose of tx/functional activities, Reviewed precautions, Safety issues, Transfer techniques, W/C management Teaching Recipient: Patient Teaching Methods: Demonstration, Discussion Response to Teaching: Verbalize Understanding, Return Demonstration OT Short Term Goals Short Term Goals Time Frame: Jun 07, 2021 Toileting hygiene: 3 Shower/bathe self: 5 Lower body dressin Putting on/taking off footwear: 4 OT Cigarette Tipper Goals Cigarette Tipper Goals Time Frame: Jun 30, 2021 Eating (QC): 6 Oral Hygiene (QC): 6 Toileting Hygiene (QC): 6 Shower/Bathe Self (QC): 6 Upper Body Dressing (QC): 6 Lower Body Dressing (QC): 6 On/Off Footwear (QC): 6 Additional Goals: 1-Demonstrate ADL Tasks, 2-Verbalize Understanding, 3- ImproveStrength/Mallika 1=Demonstrate adherence to instructed precautions during ADL tasks. 2=Patient will verbalize/demonstrate understanding of assistive devices/modifications for ADL. 3=Patient will improve strength/tolerance for activity to enable patient to perform ADL's. OT Education/Plan Problem List/Assessment Assessment: Decreased Activ Tolerance, Decreased Safety Aware, Decreased UE Strength, Impaired Coordination, Impaired Funct Balance, Impaired I ADL's, Impaired Self-Care Skills Discharge Recommendations Plan/Recommendations: Continue POC Treatment Plan/Plan of Care Patient would benefit from OT for education, treatment and training to promote independence in ADL's, mobility, safety and/or upper extremity function for ADL's. Plan of Care: ADL Retraining, Functional Mobility, Group Exercise/Act as Ind, UE Funct Exercise/Act Treatment Duration: Jun 30, 2021 Frequency: At least 5 of 7 days/Wk (IRF) Estimated Hrs Per Day: 1.5 hours per day Agreement: Yes Rehab Potential: Fair Time/GCodes Start Time: 10:30 Stop Time: 11:45 Total Time Billed (hr/min): 75 Billed Treatment Time 1 visit- ADL 2 (30 mins) FA 3 (45 mins) Co-treat ([id number]) Individual (1030-11 00) HINA ANTONIO May 25, 2021 11:51
--- NOTE | 2021-05-25 12:02 | Physical Therapy Daily Note ---
PT Daily Note-Current Subjective Pt. agrees to Rx PT OT co Rx session as pt. requires 2 skilled clinicians to coordinate TRFs and standing balance activities . U&L extr activities coordinating funct mob. Pt. c/o fatigue very quickly with each task . In questioning the patient about his PLOF he had previously told this therapist he is very active and in good shape, carries wood, works all over his property etc. Pt. now back tracks that statement somewhat. Pt. states his gf says there is no room in their home for a FWW or w/c. He does not know exactly how he will manage at home Pain Location: No Pain Reported Mental Status Patient Orientation: Person Attachments: Other-See Comments (boot) Transfers SCALE: Activities may be completed with or without assistive devices. 9-Twzdrphglb-ujnulna completes the activity by him/herself with no assistance from a helper. 5-Set-up or Clean-up Assistance-helper sets up or cleans up; patient completes activity. [place] assists only prior to or following the activity. 4-Supervision or Touching Assistance-helper provides verbal cues and/or touching/steadying and/or contact guard assistance as patient completes activity. Assistance may be provided throughout the activity or intermittently. 3-Partial/Moderate Assistance-helper does LESS THAN HALF the effort. [place] lifts, holds or supports trunk or limbs, but provides less than half the effort. 2-Substantial/Maximal Assistance-helper does MORE THAN HALF the effort. [place] lifts or holds trunk or limbs and provides more than half the effort. 6-Fzyvbcuxx-peyvoo does ALL the effort. Patient does none of the effort to complete the activity. Or, the assistance of 2 or more helpers is required for the patient to complete the activity. If activity was not attempted, code reason: 7-Patient Refused. 9-Not Applicable-not attempted and the patient did not perform the activity before the current illness, exacerbation or injury. 10-Not Attempted due to Environmental Limitations-(lack of equipment, weather restraints, etc.). 88-Not Attempted due to Medical Conditions or Safety Concerns. Sit to Stand (QC): 3 pt. required mod to min assist for sit to stand from w/c . Cushioning was provided to elevate seat of w/c to make this easier, pt. at // bars prefers to pull up vs push up and was reminded that in a home setting he will need to push up from his w/c. Pt. states " I cant even get a w/c in my house so that isnt an issue" with SPTs pt. preferred to not use FWW and wanted to practice very close SPT without FWW, this was practiced x 2 with pt. needing to be educated in proper positioning of wc and proper use of reaching and hands as well as cautioned about wt bearing status Weight Bearing Right Lower Extremity: Right Non Weight Bearing Left Lower Extremity: Left Full Weight Bearing Patient 3 weeks NWB right LE from admit on 05-20-21; Reassess 06-10-21 Gait Training Does the Patient Walk?: Yes Walk 10 feet (QC): 3 Walk 50 ft with 2 Turns(QC): 88 Walk 150 ft (QC): 88 Gait Persons Needed: 2 Gait Assistive Device: Parallel Bars pt. ambulated 5 ft x 2, 8 ft x 2 // bars with UE verbal and tactile cues and instruction from OT and same for LE and trunk and wt shift from PT, many cues for NWB RLE and use of arms of w/c to push up etc. Pt. stopped each trial and requested the w/c be brought for him to sit down. Pt. was encouraged to try to walk farther but it was noted that he was dyspneic, O2 sats 94% Wheelchair Training Does the Pt Use a Wheelchair?: Yes Wheel 50 ft with 2 turns (QC): 5 Wheel 150 ft (QC): 5 Type of Wheelchair: Manual fig 8 trials in w/c x 3 with instruction needed, pt. able to brake w/c effectively but needs max assist to apply and and remove the leg rest . Exercises NuStep Minutes: 3 NuStep Workload: 1 Treatments w/c mob, SPTs, gait in // bars, Nustep. On Nustep pts RLE was NWB and elevated on wedge. Pt. c/o fatigue at 30 second georgette and wanted to quit. Pt was encouraged to try to get to 3 mins with goal of building to 8 mins over time. Assessment Current Status: Fair Progress pt. quickly fatigues, pt. having significant difficulty remaining NWBing . Pt. states he canot get a w/c in his home and likely cannot get a FWW through his home. All these issues will greatly limit the possibility of pt discharging to his own home. PT Short Term Goals Short Term Goals Time Frame: Jun 07, 2021 Roll Left & Right: 5 Sit to lyin Lying to sitting on side of be: 5 Sit to stand: 5 Chair/wkw-dd-cynhv transfer: 5 Toilet transfer: 5 Car transfer: 5 Walk 10 feet: 4 Walk 50 feet with two turns: 4 Walk 150 feet: 3 PT Chcf Goals Internet Project Manager Goals PT Chcf Goals Time Frame: Jun 30, 2021 Roll Left & Right (QC): 6 Sit to Lying (QC): 6 Lying-Sitting on Side/Bed(QC): 6 Sit to Stand (QC): 6 Chair/Qbv-xn-Zkfwm Xfer(QC): 6 Toilet Transfer (QC): 6 Car Transfer (QC): 6 Does the Patient Walk: Yes Walk 10 feet (QC): 5 Walk 50ft with 2 Turns (QC): 5 Walk 150 ft (QC): 4 Walking 10ft on Uneven Surface: 4 1 Step (curb) (QC): 3 4 Steps (QC): 3 12 Steps (QC): 3 Picking up an Object (QC): 4 Does the Pt use WC or Scooter?: No Wheel 50 feet with 2 turns (QC: 88 Wheel 150 feet: 88 PT Plan Treatment/Plan Treatment Plan: Continue Plan of Care Treatment Plan: Bed Mobility, Education, Functional Activity Mallika, Functional Strength, Group Therapy, Gait, Safety, Therapeutic Exercise, Transfers Treatment Duration: Jul 01, 2021 Frequency: At least 5 of 7 days/Wk (IRF) Estimated Hrs Per Day: 1.5 hours per day Patient and/or Family Agrees t: Yes Safety Risks/Education Patient Education: Gait Training, Transfer Techniques, Correct Positioning, W/C Management, Disease Process, Safety Issues Teaching Recipient: Patient Teaching Methods: Demonstration, Discussion Response to Teaching: Verbalize Understanding, Return Demonstration, Reinforcement Needed Time/GCodes Time In: 1100 Time Out: 1145 Total Billed Treatment Time: 45 Total Billed Treatment 1,GT15,EX10m,WC20 JUSITN MAYNARD SINGEING TORCH OPERATOR May 25, 2021 12:01
[2021-05-25] MEDS ORDERED: LIDOCAINE UROJET 2% GEL 10 ML PKG TOP ONE (15:30)
[2021-05-25 16:42] LABS: BILIRUBIN,URINE NEGATIVE (NEGATIVE); CLARITY,URINE CLEAR; COLOR,URINE YELLOW; GLUCOSE, URINE (UA) NEGATIVE (NEGATIVE); KETONES,URINE NEGATIVE (NEGATIVE); LEUKOCYTE ESTERASE ,URINE 1+ (NEGATIVE); NITRITE,URINE NEGATIVE (NEGATIVE); PROTEIN,URINE 1+ (NEGATIVE)
[2021-05-25 16:51] LABS: BACTERIA,URINE LARGE /HPF
[2021-05-25 16:52] LABS: YEAST,URINE MODERATE /HPF
[2021-05-25] MEDS ORDERED: TAMSULOSIN 0.4 MG (FLOMAX) CAP PO SCH (18:00)
[2021-05-25] MEDS: ENOXAPARIN 40 MG/0.4 ML (LOVENOX) SYR SC SCH (18:12)
[2021-05-25 19:48] VITALS: BP 117/74
[2021-05-26] MEDS: ONDANSETRON 4 MG (ZOFRAN) ORAL DISSOLVE TAB PO PRN ×2 (02:35→11:27)
[2021-05-26] MEDS: MEXILETINE 150 MG (MEXITIL) CAPSULE PO SCH ×3 (05:51→22:16)
[2021-05-26] MEDS: BETHANECHOL 25 MG (URECHOLINE) TAB PO SCH ×4 (05:51→20:32)
[2021-05-26] MEDS: CATHETER FLUSH 10 ML SYR IVP SCH ×3 (05:52→20:34)
--- NOTE | 2021-05-26 06:02 | PM&R Progress Note ---
Subjective HPI/CC On Admission Date Seen by Provider: May 26, 2021 Time Seen by Provider: 12:30 Subjective/Events-last exam 05/26/2021: Pt is doing pretty well UTI diagnosed is enterococcus so we will add Vancomycin Patient reports he does have some retention at home and will Enterococcus UTI I think he has had struggles with this before Will also add Diflucan for yeast Overall doing very well with pain now 05/25/2021: Patient doing really well Settling in nicely Discontinue Accu-Cheks since he only checks his sugar twice weekly Straight cath required due to urinary retention Send off lab for UA due to cloudiness Pain is controlled on hydrocodone Review of Systems General: Fatigue, Malaise Genitourinary: Retention Objective Exam Vital Signs Vital Signs Date Time Temp Pulse Resp B/P (MAP) Pulse Ox O2 Delivery O2 Flow Rate FiO2 05/26/21 20:43 Room Air 05/26/21 19:10 36.4 66 20 125/77 (93) 92 05/24/21 18:29 2.00 Capillary Refill : General Appearance: No Apparent Distress, WD/WN, Chronically ill HEENT: PERRL/EOMI, Normal ENT Inspection, Pharynx Normal Neck: Full Range of Motion, Normal Inspection, Non Tender, Supple, Carotid Bruit Respiratory: Chest Non Tender, Lungs Clear, Normal Breath Sounds, No Accessory Muscle Use, No Respiratory Distress Cardiovascular: Regular Rate, Rhythm, No Edema, No Gallop, No JVD, No Murmur, Normal Peripheral Pulses Gastrointestinal: Normal Bowel Sounds, No Organomegaly, No Pulsatile Mass, Non Tender, Soft Back: Normal Inspection, No CVA Tenderness, No Vertebral Tenderness Extremity: Normal Capillary Refill, Normal Inspection, Normal Range of Motion (Except right leg in bed), Non Tender, No Calf Tenderness, No Pedal Edema Neurologic/Psychiatric: Alert, Oriented x3, No Motor/Sensory Deficits, Normal Mood/Affect, Abnormal Gait, Motor Weakness (Generalized) Skin: Normal Color, Warm/Dry Lymphatic: No Adenopathy Results/Procedures Lab Patient resulted labs reviewed. FIM Transfers Therapy Code Descriptions/Definitions Functional [place] Measure: 0=Not Assessed/NA 4=Minimal Assistance 1=Total Assistance 5=Supervision or Setup 2=Maximal Assistance 6=Modified [place] 3=Moderate Assistance 7=Complete IndependenceSCALE: Activities may be completed with or without assistive devices. 3-Mbpisvbpzb-idlgzjj completes the activity by him/herself with no assistance from a helper. 5-Set-up or Clean-up Assistance-helper sets up or cleans up; patient completes activity. [place] assists only prior to or following the activity. 4-Supervision or Touching Assistance-helper provides verbal cues and/or touching/steadying and/or contact guard assistance as patient completes activity. Assistance may be provided throughout the activity or intermittently. 3-Partial/Moderate Assistance-helper does LESS THAN HALF the effort. [place] lifts, holds or supports trunk or limbs, but provides less than half the effort. 2-Substantial/Maximal Assistance-helper does MORE THAN HALF the effort. [place] lifts or holds trunk or limbs and provides more than half the effort. 4-Xzdifbaua-lvytks does ALL the effort. Patient does none of the effort to complete the activity. Or, the assistance of 2 or more helpers is required for the patient to complete the activity. If activity was not attempted, code reason: 7-Patient Refused. 9-Not Applicable-not attempted and the patient did not perform the activity before the current illness, exacerbation or injury. 10-Not Attempted due to Environmental Limitations-(lack of equipment, weather restraints, etc.). 88-Not Attempted due to Medical Conditions or Safety Concerns. Roll Left to Right (QC): 6 Sit to Lying (QC): 6 Sit to Stand (QC): 3 Chair/Nqe-vc-Bbbwl Xfer(QC): 3 Car Transfer (QC): 4 Gait Training Does the Patient Walk?: Yes Walk 10 feet (QC): 3 Walk 50 ft with 2 Turns(QC): 88 Walk 150 ft (QC): 88 Walking 10ft/uneven surface-QC: 88 Gait Persons Needed: 2 Gait Assistive Device: Parallel Bars Wheelchair Training Does the Pt Use a Wheelchair?: Yes Distance: 100 Wheel 50 ft with 2 turns (QC): 5 Wheel 150 ft (QC): 5 Type of Wheelchair: Manual Stair Training #of Steps: 0 1 Step (curb) (QC): 88 4 Steps (QC): 88 12 Steps (QC): 88 Balance Picking up an Object (QC): 88 ADL-Treatment Eating (QC): 6 Oral Hygiene (QC): 6 (sitting in w/c) Shower/Bathe Self (QC): 4 (SBA, pt completed fully in sitting.) Upper Body Dressing (QC): 5 Lower Body Dressing (QC): 2 On/Off Footwear (QC): 3 (Pt able to doff/don L gripper socks. Min A with doffing R CAM boot, total assist with donning R CAM boot.) Toileting Hygiene (QC): 1 (Assist x2 in stand for pant hike.) Assessment/Plan Assessment and Plan Assess & Plan/Chief Complaint Assessment: R distal fibular fracture NSTEMI, s/p cardioversion on 05/19 Ventricular tachycardia Cardiogenic shock, resolved T2DM Arrhythmogenic Right Ventricular Dysplasia NEVAEH, resolved Cerebral palsy history BPH DVT risk Urinary retention Chronic Constipation UTI Enterococcus placed on Vanco empirically 05/26/2021 Plan: Aggressive rehab Urinary retention management Appreciate cardiology 05/25/2021: Await urine culture Aggressive rehab Pain control 05/26/2021: Vancomycin Supportive care (1) Right fibular fracture Status: Acute (2) Ventricular tachycardia Status: Acute (3) Cardiogenic shock Status: Acute (4) Arrhythmogenic right ventricular dysplasia Status: Acute (5) Primary hypertension (6) Mixed hyperlipidemia (7) Cerebral palsy VALERIY POTTS DO May 26, 2021 06:02
[2021-05-26 07:36] VITALS: BP 122/64
[2021-05-26] MEDS: ACETAMINOPHEN 325 MG TABLET PO PRN (07:58)
[2021-05-26] MEDS: polyethylene glycoL POWDER 17 GM (MIRALAX) PACK PO SCH ×2 (07:58→20:31)
[2021-05-26] MEDS: SOTALOL 80 MG (BETAPACE) TAB PO SCH ×2 (08:00→20:32)
[2021-05-26] MEDS: ASPIRIN E.C. 81 MG (ECOTRIN) TAB PO SCH (08:00)
[2021-05-26] MEDS: amLODIPine 5 MG (NORVASC) TAB PO SCH (08:00)
[2021-05-26] MEDS: SENNA W/DOCUSATE (SENOKOT S) TABLET PO SCH ×2 (08:01→20:31)
[2021-05-26] MEDS: DOCUSATE SODIUM 100 MG (COLACE) CAP PO SCH ×2 (08:01→20:31)
[2021-05-26] MEDS: TAMSULOSIN 0.4 MG (FLOMAX) CAP PO SCH ×2 (08:01→20:32)
[2021-05-26] MEDS: lisINopril 20 MG (PRINIVIL) TABLET PO SCH (08:01)
--- NOTE | 2021-05-26 09:03 | Occupational Ther Daily Note ---
OT Current Status-Daily Note Subjective Pt exhibits poor working memory throughout session, poor follow through with cues. Appearance Pt left seated in recliner, all needs within reach. Mental Status/Objective Patient Orientation: Person, Place, Situation Attachments: IV ADL-Treatment Therapy Code Descriptions/Definitions Functional [place] Measure: 0=Not Assessed/NA 4=Minimal Assistance 1=Total Assistance 5=Supervision or Setup 2=Maximal Assistance 6=Modified [place] 3=Moderate Assistance 7=Complete IndependenceSCALE: Activities may be completed with or without assistive devices. 0-Gzbafnynzo-snnmawf completes the activity by him/herself with no assistance from a helper. 5-Set-up or Clean-up Assistance-helper sets up or cleans up; patient completes activity. [place] assists only prior to or following the activity. 4-Supervision or Touching Assistance-helper provides verbal cues and/or touching/steadying and/or contact guard assistance as patient completes activity. Assistance may be provided throughout the activity or intermittently. 3-Partial/Moderate Assistance-helper does LESS THAN HALF the effort. [place] lifts, holds or supports trunk or limbs, but provides less than half the effort. 2-Substantial/Maximal Assistance-helper does MORE THAN HALF the effort. [place] lifts or holds trunk or limbs and provides more than half the effort. 7-Vbawldxld-pyttfb does ALL the effort. Patient does none of the effort to complete the activity. Or, the assistance of 2 or more helpers is required for the patient to complete the activity. If activity was not attempted, code reason: 7-Patient Refused. 9-Not Applicable-not attempted and the patient did not perform the activity before the current illness, exacerbation or injury. 10-Not Attempted due to Environmental Limitations-(lack of equipment, weather restraints, etc.). 88-Not Attempted due to Medical Conditions or Safety Concerns. Oral Hygiene (QC): 6 Upper Body Dressing (QC): 5 Lower Body Dressing (QC): 3 Toilet Transfer (QC): 3 Pt supine in bed at OT arrival. Declines bathing, agreeable to dressing. Clothing donned seated EOB. Pt initially threaded Left foot first and then demonstrates difficulty threading R. OT had him doff shorts and re-start by threading R first. Post cue, pt able to thread BLE's without assist. Cam boot already donned. Mod a to stand and sustain balance. Pt only able to maintain NWB on RLE for a brief moment. Several cues for positioning and CLYDE while standing. Mod a to pull clothing up to waist as pt requires extra balance assist when removing hand from walker. Pt able to don L shoe with set up only. Due to poor standing balance and inability to maintain NWB, OT educated pt on squat pivot transfers. Poor follow through with correct sequencing, needs cues/reminders for set up prior to each transfer. Pt able to perform squat pivot towards L with CGA. Requires min-mod a towards R. Pt propelled w/c into bathroom to complete grooming tasks at seated level, no physical assistance required. Commode placed over toilet to compensate for inability to stand from low surfaces. Pt completed squat and stand pivots w/c<>toilet x4 with goal to improve indep, safety, and sequencing of task. Initially, pt requires mod a for lifting, but improves to min. Continues to have difficulty maintaining weight bearing adherence. Requires repetition of sequencing/safety cues prior to each transfer. Pt fatigues easily with task and requires a lengthy rest break before each transfer. Education OT Patient Education: Correct positioning, Energy conservation, Modified ADL techniques, Progress toward Goal/Update tx plan, Purpose of tx/functional activities, Reviewed precautions, Rehab process, Safety issues, Transfer techniques, W/C management Teaching Recipient: Patient Teaching Methods: Demonstration, Discussion Response to Teaching: Verbalize Understanding, Reinforcement Needed OT Short Term Goals Short Term Goals Time Frame: Jun 07, 2021 Toileting hygiene: 3 Shower/bathe self: 5 Lower body dressin Putting on/taking off footwear: 4 OT Cloth Hand Goals Cloth Hand Goals Time Frame: Jun 30, 2021 Eating (QC): 6 Oral Hygiene (QC): 6 Toileting Hygiene (QC): 6 Shower/Bathe Self (QC): 6 Upper Body Dressing (QC): 6 Lower Body Dressing (QC): 6 On/Off Footwear (QC): 6 Additional Goals: 1-Demonstrate ADL Tasks, 2-Verbalize Understanding, 3- ImproveStrength/[place] 1=Demonstrate adherence to instructed precautions during ADL tasks. 2=Patient will verbalize/demonstrate understanding of assistive devices/modifications for ADL. 3=Patient will improve strength/tolerance for activity to enable patient to perform ADL's. OT Education/Plan Problem List/Assessment Assessment: Decreased Activ Tolerance, Decreased Safety Aware, Decreased UE Strength, Dependent Transfers, Impaired Cognition, Impaired Coordination, Impaired Funct Balance, Impaired I ADL's, Impaired Self-Care Skills Discharge Recommendations Plan/Recommendations: Continue POC Treatment Plan/Plan of Care Treatment,Training & Education: Yes Patient would benefit from OT for education, treatment and training to promote independence in ADL's, mobility, safety and/or upper extremity function for ADL's. Plan of Care: ADL Retraining, Functional Mobility, Group Exercise/Act as Ind, UE Funct Exercise/Act Treatment Duration: Jun 30, 2021 Frequency: At least 5 of 7 days/Wk (IRF) Estimated Hrs Per Day: 1.5 hours per day Agreement: Yes Rehab Potential: Fair Time/GCodes Start Time: 07:50 Stop Time: 09:00 Total Time Billed (hr/min): 70 Billed Treatment Time 1 visit ADL x3 FA x2 Yuridia Spencer OT May 26, 2021 09:03
--- NOTE | 2021-05-26 10:59 | Physical Therapy Daily Note ---
PT Daily Note-Current Subjective Pt. agreeable to Rx. Pt. states he is too weak to do the Rx but does complete it with encouragement Pain Location: No Pain Reported Mental Status Patient Orientation: Person, Unable to Assess Attachments: Other-See Comments (boot right) Transfers SCALE: Activities may be completed with or without assistive devices. 5-Mrwihetbxi-egyrbet completes the activity by him/herself with no assistance from a helper. 5-Set-up or Clean-up Assistance-helper sets up or cleans up; patient completes activity. [place] assists only prior to or following the activity. 4-Supervision or Touching Assistance-helper provides verbal cues and/or touching/steadying and/or contact guard assistance as patient completes activity. Assistance may be provided throughout the activity or intermittently. 3-Partial/Moderate Assistance-helper does LESS THAN HALF the effort. [place] lifts, holds or supports trunk or limbs, but provides less than half the effort. 2-Substantial/Maximal Assistance-helper does MORE THAN HALF the effort. [place] lifts or holds trunk or limbs and provides more than half the effort. 2-Fqjpfxysx-wfmxoh does ALL the effort. Patient does none of the effort to complete the activity. Or, the assistance of 2 or more helpers is required for the patient to complete the activity. If activity was not attempted, code reason: 7-Patient Refused. 9-Not Applicable-not attempted and the patient did not perform the activity before the current illness, exacerbation or injury. 10-Not Attempted due to Environmental Limitations-(lack of equipment, weather restraints, etc.). 88-Not Attempted due to Medical Conditions or Safety Concerns. Sit to Stand (QC): 4 Chair/Ljd-gj-Loebq Xfer(QC): 3 sit to stands min to CGA, SPTs min to mod recliner to w/c , w/c to nustepand back to recliner all mod to min and many cues for hand placement, wt bearing status etc Weight Bearing Right Lower Extremity: Right Non Weight Bearing Left Lower Extremity: Left Full Weight Bearing Patient 3 weeks NWB right LE from admit on 05-20-21; Reassess 06-10-21 Wheelchair Training Does the Pt Use a Wheelchair?: Yes Wheel 50 ft with 2 turns (QC): 4 Wheel 150 ft (QC): 4 Type of Wheelchair: Manual indep to brake w/c but needs reminded, needs assist for leg rest, needs instruction to make his way through a narrower passage Exercises Seated Therapy Exercises: Ankle pumps, Sit to stand, Long arc quads, Hip flexion, Hip abd/add Seated Reps: 15 NuStep Minutes: 5 NuStep Workload: 1 Treatments as above, concentrated on SPTs and w/c mobility , pt. still not reliable to NWB and needs repeated instruction for safe TRFs. gait is not a functional mode of mobility for pt. as he wt bears and is at risk for falls Assessment Current Status: Good Progress still fatigues quickly and needs many breaks and much encouragement , PT Short Term Goals Short Term Goals Time Frame: Jun 07, 2021 Roll Left & Right: 5 Sit to lyin Lying to sitting on side of be: 5 Sit to stand: 5 Chair/hky-hv-byxwo transfer: 5 Toilet transfer: 5 Car transfer: 5 Walk 10 feet: 4 Walk 50 feet with two turns: 4 Walk 150 feet: 3 PT Intermediate Goals Canine Deputy Goals PT Intermediate Goals Time Frame: Jun 30, 2021 Roll Left & Right (QC): 6 Sit to Lying (QC): 6 Lying-Sitting on Side/Bed(QC): 6 Sit to Stand (QC): 6 Chair/Znb-kn-Cokpp Xfer(QC): 6 Toilet Transfer (QC): 6 Car Transfer (QC): 6 Does the Patient Walk: Yes Walk 10 feet (QC): 5 Walk 50ft with 2 Turns (QC): 5 Walk 150 ft (QC): 4 Walking 10ft on Uneven Surface: 4 1 Step (curb) (QC): 3 4 Steps (QC): 3 12 Steps (QC): 3 Picking up an Object (QC): 4 Does the Pt use WC or Scooter?: No Wheel 50 feet with 2 turns (QC: 88 Wheel 150 feet: 88 PT Plan Treatment/Plan Treatment Plan: Continue Plan of Care Treatment Plan: Bed Mobility, Education, Functional Activity Mallika, Functional Strength, Group Therapy, Gait, Safety, Therapeutic Exercise, Transfers Treatment Duration: Jul 01, 2021 Frequency: At least 5 of 7 days/Wk (IRF) Estimated Hrs Per Day: 1.5 hours per day Patient and/or Family Agrees t: Yes Safety Risks/Education Patient Education: Transfer Techniques, Correct Positioning, W/C Management, Disease Process, Safety Issues Teaching Recipient: Patient Teaching Methods: Demonstration, Discussion Response to Teaching: Verbalize Understanding, Return Demonstration, Reinforcement Needed Time/GCodes Time In: 1000 Time Out: 1100 Total Billed Treatment Time: 60 Total Billed Treatment 1,FA25m,EX15m,WC20m JUSTIN MAYNARD STRAW HAT PLUNGER OPERATOR May 26, 2021 10:59
--- NOTE | 2021-05-26 11:55 | Occupational Ther Daily Note ---
OT Current Status-Daily Note Subjective At OT arrival, pt on phone ordering lunch. He was unaware/forgetful that he had already ordered earlier in the day. Appearance Pt left sitting in recliner, all needs within reach. ADL-Treatment Therapy Code Descriptions/Definitions Functional [place] Measure: 0=Not Assessed/NA 4=Minimal Assistance 1=Total Assistance 5=Supervision or Setup 2=Maximal Assistance 6=Modified [place] 3=Moderate Assistance 7=Complete IndependenceSCALE: Activities may be completed with or without assistive devices. 0-Xctqlimxwn-jraubsq completes the activity by him/herself with no assistance from a helper. 5-Set-up or Clean-up Assistance-helper sets up or cleans up; patient completes activity. [place] assists only prior to or following the activity. 4-Supervision or Touching Assistance-helper provides verbal cues and/or touching/steadying and/or contact guard assistance as patient completes activity. Assistance may be provided throughout the activity or intermittently. 3-Partial/Moderate Assistance-helper does LESS THAN HALF the effort. [place] lifts, holds or supports trunk or limbs, but provides less than half the effort. 2-Substantial/Maximal Assistance-helper does MORE THAN HALF the effort. [place] lifts or holds trunk or limbs and provides more than half the effort. 2-Cywvrzqkv-hfiniw does ALL the effort. Patient does none of the effort to complete the activity. Or, the assistance of 2 or more helpers is required for the patient to complete the activity. If activity was not attempted, code reason: 7-Patient Refused. 9-Not Applicable-not attempted and the patient did not perform the activity before the current illness, exacerbation or injury. 10-Not Attempted due to Environmental Limitations-(lack of equipment, weather restraints, etc.). 88-Not Attempted due to Medical Conditions or Safety Concerns. Other Treatment Pt participated in UE exercises with goal to promote increased strength, endurance, and coordination needed for functional tasks. OT issued and instructed pt on theraband exercises with green band. Poor coordination exhibit ed with each exercise. Requires cues to slow pace and to maintain tension throughout entire movement. Pt often having difficulty keeping a fluid movement throughout entire set as UE's had a tendency to drift/shift to an alternative movement or did not coordinate with bilateral movements. Increased education/hands on technique will be needed for improved independence with exercise program. Education OT Patient Education: Correct positioning, Exercise program, Modified ADL te chniques, Progress toward Goal/Update tx plan, Purpose of tx/functional activities, Safety issues Teaching Recipient: Patient Teaching Methods: Demonstration, Discussion Response to Teaching: Verbalize Understanding, Reinforcement Needed OT Short Term Goals Short Term Goals Time Frame: Jun 07, 2021 Toileting hygiene: 3 Shower/bathe self: 5 Lower body dressin Putting on/taking off footwear: 4 OT Aircraft Instrument Mechanic Goals Aircraft Instrument Mechanic Goals Time Frame: Jun 30, 2021 Eating (QC): 6 Oral Hygiene (QC): 6 Toileting Hygiene (QC): 6 Shower/Bathe Self (QC): 6 Upper Body Dressing (QC): 6 Lower Body Dressing (QC): 6 On/Off Footwear (QC): 6 Additional Goals: 1-Demonstrate ADL Tasks, 2-Verbalize Understanding, 3- ImproveStrength/Mallika 1=Demonstrate adherence to instructed precautions during ADL tasks. 2=Patient will verbalize/demonstrate understanding of assistive device s/modifications for ADL. 3=Patient will improve strength/tolerance for activity to enable patient to perform ADL's. OT Education/Plan Problem List/Assessment Assessment: Decreased Activ Tolerance, Decreased Safety Aware, Decreased UE Strength, Impaired Cognition, Impaired Coordination, Impaired Funct Balance, Impaired I ADL's, Impaired Self-Care Skills Discharge Recommendations Plan/Recommendations: Continue POC Treatment Plan/Plan of Care Treatment,Training & Education: Yes Patient would benefit from OT for education, treatment and training to promote independence in ADL's, mobility, safety and/or upper extremity function for ADL's. Plan of Care: ADL Retraining, Functional Mobility, Group Exercise/Act as Ind, UE Funct Exercise/Act Treatment Duration: Jun 30, 2021 Frequency: At least 5 of 7 days/Wk (IRF) Estimated Hrs Per Day: 1.5 hours per day Agreement: Yes Rehab Potential: Fair Time/GCodes Start Time: 10:28 Stop Time: 11:52 Total Time Billed (hr/min): 24 Billed Treatment Time 1 visit EX riley Yuridia Spencer OT May 26, 2021 11:55
[2021-05-26] MEDS ORDERED: VANCOMYCIN INJECTION 0.1 MG in NS (IVPB) 250 ML IV SCH (12:15)
[2021-05-26] MEDS ORDERED: VANCOMYCIN 2000 MG/NS 500 ML IVPB IV NR ×2 (12:30)
[2021-05-26] MEDS: fluCOnazole (DIFLUCAN) 100 MG TAB PO SCH (12:43)
--- NOTE | 2021-05-26 14:19 | Physical Therapy Daily Note ---
PT Daily Note-Current Subjective Pt. and SO in room. SO inquires as to how pt. is progressing. This MANAGER ANALYSIS shares that pt. still unable to non wt bear for TRFs and gait . Shared that pt is TRFing SPT with FWW min to [facility] and needs instruction to NWB and is using WC for mobility. SO became very upset and states "well then you cannot come home" SO became very upset and cried and stated that they live in a very crowded 600 sq ft home and he has no income or ins coverage to go to longterm care. SO asks to speak with SW. SW was summoned. Pt agreed to LE ex in bed Pain Location: No Pain Reported Transfers SCALE: Activities may be completed with or without assistive devices. 9-Eqrxiphinm-qdkawkr completes the activity by him/herself with no assistance from a helper. 5-Set-up or Clean-up Assistance-helper sets up or cleans up; patient completes activity. [place] assists only prior to or following the activity. 4-Supervision or Touching Assistance-helper provides verbal cues and/or touching/steadying and/or contact guard assistance as patient completes activity. Assistance may be provided throughout the activity or intermittently. 3-Partial/Moderate Assistance-helper does LESS THAN HALF the effort. [place] lifts, holds or supports trunk or limbs, but provides less than half the effort. 2-Substantial/Maximal Assistance-helper does MORE THAN HALF the effort. [place] lifts or holds trunk or limbs and provides more than half the effort. 6-Xffxexbhn-djqclz does ALL the effort. Patient does none of the effort to complete the activity. Or, the assistance of 2 or more helpers is required for the patient to complete the activity. If activity was not attempted, code reason: 7-Patient Refused. 9-Not Applicable-not attempted and the patient did not perform the activity before the current illness, exacerbation or injury. 10-Not Attempted due to Environmental Limitations-(lack of equipment, weather restraints, etc.). 88-Not Attempted due to Medical Conditions or Safety Concerns. Weight Bearing Right Lower Extremity: Right Non Weight Bearing Left Lower Extremity: Left Full Weight Bearing Patient 3 weeks NWB right LE from admit on 05-20-21; Reassess 06-10-21 Exercises Supine Ex: Ankle pumps, Quad Set, Glut sets, Heel Slides, Short Arc Quads, Straight leg raise, Hip abd/add Supine Reps: 15 Treatments LE ex and education with SO and pt regarding the need for NWBing and the healing process as well as the options for safe mobility Assessment Current Status: Fair Progress pts. SO very frustrated that pt. cannot walk , states there is no room for a w/c or a FWW in their home. PT Short Term Goals Short Term Goals Time Frame: Jun 07, 2021 Roll Left & Right: 5 Sit to lyin Lying to sitting on side of be: 5 Sit to stand: 5 Chair/wbj-nq-oqkyy transfer: 5 Toilet transfer: 5 Car transfer: 5 Walk 10 feet: 4 Walk 50 feet with two turns: 4 Walk 150 feet: 3 PT Bottle Blower Goals Mcc Goals PT Mcc Goals Time Frame: Jun 30, 2021 Roll Left & Right (QC): 6 Sit to Lying (QC): 6 Lying-Sitting on Side/Bed(QC): 6 Sit to Stand (QC): 6 Chair/Ocn-fs-Gnrax Xfer(QC): 6 Toilet Transfer (QC): 6 Car Transfer (QC): 6 Does the Patient Walk: Yes Walk 10 feet (QC): 5 Walk 50ft with 2 Turns (QC): 5 Walk 150 ft (QC): 4 Walking 10ft on Uneven Surface: 4 1 Step (curb) (QC): 3 4 Steps (QC): 3 12 Steps (QC): 3 Picking up an Object (QC): 4 Does the Pt use WC or Scooter?: No Wheel 50 feet with 2 turns (QC: 88 Wheel 150 feet: 88 PT Plan Treatment/Plan Treatment Plan: Continue Plan of Care Treatment Plan: Bed Mobility, Education, Functional Activity Mallika, Functional Strength, Group Therapy, Gait, Safety, Therapeutic Exercise, Transfers Treatment Duration: Jul 01, 2021 Frequency: At least 5 of 7 days/Wk (IRF) Estimated Hrs Per Day: 1.5 hours per day Patient and/or Family Agrees t: Yes Safety Risks/Education Patient Education: Reviewed Precautions, Correct Positioning, Instructions to Caregiver, Safety Issues Teaching Recipient: Patient, Significant Other Response to Teaching: Reinforcement Needed Time/GCodes Time In: 1330 Time Out: 1400 Total Billed Treatment Time: 30 Total Billed Treatment 1,EX30m JUSTIN MAYNARD MANAGER ANALYSIS May 26, 2021 14:19
[2021-05-26] MEDS ORDERED: LIDOCAINE UROJET 2% GEL 10 ML PKG ONE (16:15)
[2021-05-26] MEDS: BISACODYL 10 MG SUPP (DULCOLAX) PR PRN (16:36)
[2021-05-26] MEDS: ENOXAPARIN 40 MG/0.4 ML (LOVENOX) SYR SC SCH (18:21)
[2021-05-26 19:10] VITALS: BP 125/77
--- NOTE | 2021-05-27 04:05 | PM&R Progress Note ---
Subjective HPI/CC On Admission Date Seen by Provider: May 27, 2021 Time Seen by Provider: 06:00 Subjective/Events-last exam 05/27/21: Patient doing well Duong cath will be placed and remain in Complete retention noted Seems like he has neurogenic bladder and did not address this for a long time Enterococcus noted and will DC Vanc and start Amoxil to complete treatment Very flat affect is chronic 05/26/2021: Pt is doing pretty well UTI diagnosed is enterococcus so we will add Vancomycin Patient reports he does have some retention at home and will Enterococcus UTI I think he has had struggles with this before Will also add Diflucan for yeast Overall doing very well with pain now 05/25/2021: Patient doing really well Settling in nicely Discontinue Accu-Cheks since he only checks his sugar twice weekly Straight cath required due to urinary retention Send off lab for UA due to cloudiness Pain is controlled on hydrocodone Review of Systems General: Fatigue, Malaise Genitourinary: Retention Musculoskeletal: leg pain Objective Exam Vital Signs Vital Signs Date Time Temp Pulse Resp B/P (MAP) Pulse Ox O2 Delivery O2 Flow Rate FiO2 05/27/21 10:30 60 05/27/21 08:36 Room Air 05/27/21 07:14 36.4 18 125/82 (96) 90 05/24/21 18:29 2.00 Capillary Refill : General Appearance: No Apparent Distress, WD/WN, Chronically ill HEENT: PERRL/EOMI, Normal ENT Inspection, Pharynx Normal Neck: Full Range of Motion, Normal Inspection, Non Tender, Supple, Carotid Bruit Respiratory: Chest Non Tender, Lungs Clear, Normal Breath Sounds, No Accessory Muscle Use, No Respiratory Distress Cardiovascular: Regular Rate, Rhythm, No Edema, No Gallop, No JVD, No Murmur, Normal Peripheral Pulses Gastrointestinal: Normal Bowel Sounds, No Organomegaly, No Pulsatile Mass, Non Tender, Soft Back: Normal Inspection, No CVA Tenderness, No Vertebral Tenderness Extremity: Normal Capillary Refill, Normal Inspection, Normal Range of Motion (Except right leg in bed), Non Tender, No Calf Tenderness, No Pedal Edema Neurologic/Psychiatric: Alert, Oriented x3, No Motor/Sensory Deficits, Normal Mood/Affect, Abnormal Gait, Motor Weakness (Generalized) Skin: Normal Color, Warm/Dry Lymphatic: No Adenopathy Results/Procedures Lab Patient resulted labs reviewed. FIM Transfers Therapy Code Descriptions/Definitions Functional [place] Measure: 0=Not Assessed/NA 4=Minimal Assistance 1=Total Assistance 5=Supervision or Setup 2=Maximal Assistance 6=Modified [place] 3=Moderate Assistance 7=Complete IndependenceSCALE: Activities may be completed with or without assistive devices. 7-Htfoxvvrle-vtwazps completes the activity by him/herself with no assistance from a helper. 5-Set-up or Clean-up Assistance-helper sets up or cleans up; patient completes activity. [place] assists only prior to or following the activity. 4-Supervision or Touching Assistance-helper provides verbal cues and/or touching/steadying and/or contact guard assistance as patient completes activity. Assistance may be provided throughout the activity or intermittently. 3-Partial/Moderate Assistance-helper does LESS THAN HALF the effort. [place] lifts, holds or supports trunk or limbs, but provides less than half the effort. 2-Substantial/Maximal Assistance-helper does MORE THAN HALF the effort. [place] lifts or holds trunk or limbs and provides more than half the effort. 6-Gppmlhyct-szxudn does ALL the effort. Patient does none of the effort to complete the activity. Or, the assistance of 2 or more helpers is required for the patient to complete the activity. If activity was not attempted, code reason: 7-Patient Refused. 9-Not Applicable-not attempted and the patient did not perform the activity before the current illness, exacerbation or injury. 10-Not Attempted due to Environmental Limitations-(lack of equipment, weather restraints, etc.). 88-Not Attempted due to Medical Conditions or Safety Concerns. Roll Left to Right (QC): 6 Sit to Lying (QC): 6 Sit to Stand (QC): 4 Chair/Bpl-yk-Ojyjp Xfer(QC): 3 Car Transfer (QC): 4 Gait Training Does the Patient Walk?: Yes Walk 10 feet (QC): 3 Walk 50 ft with 2 Turns(QC): 88 Walk 150 ft (QC): 88 Walking 10ft/uneven surface-QC: 88 Gait Persons Needed: 2 Gait Assistive Device: Parallel Bars Wheelchair Training Does the Pt Use a Wheelchair?: Yes Distance: 100 Wheel 50 ft with 2 turns (QC): 4 Wheel 150 ft (QC): 4 Type of Wheelchair: Manual Stair Training #of Steps: 0 1 Step (curb) (QC): 88 4 Steps (QC): 88 12 Steps (QC): 88 Balance Picking up an Object (QC): 88 ADL-Treatment Eating (QC): 6 Oral Hygiene (QC): 6 Shower/Bathe Self (QC): 4 (SBA, pt completed fully in sitting.) Upper Body Dressing (QC): 5 Lower Body Dressing (QC): 3 On/Off Footwear (QC): 3 (Pt able to doff/don L gripper socks. Min A with doffing R CAM boot, total assist with donning R CAM boot.) Toileting Hygiene (QC): 1 (Assist x2 in stand for pant hike.) Toilet Transfer (QC): 3 Assessment/Plan Assessment and Plan Assess & Plan/Chief Complaint Assessment: R distal fibular fracture NSTEMI, s/p cardioversion on 05/19 Ventricular tachycardia Cardiogenic shock, resolved T2DM Arrhythmogenic Right Ventricular Dysplasia NEVAEH, resolved Cerebral palsy history BPH DVT risk Urinary retention Chronic Constipation UTI Enterococcus placed on Vanco empirically 05/26/2021 then changed to Amoxil after sensitivities back Plan: Aggressive rehab Urinary retention management Appreciate cardiology 05/25/2021: Await urine culture Aggressive rehab Pain control 05/26/2021: Vancomycin Supportive care 05/27/21: DC Vanc Amoxil Duong cath (1) Right fibular fracture Status: Acute (2) Ventricular tachycardia Status: Acute (3) Cardiogenic shock Status: Acute (4) Arrhythmogenic right ventricular dysplasia Status: Acute (5) Primary hypertension (6) Mixed hyperlipidemia (7) Cerebral palsy VALERIY POTTS DO May 27, 2021 04:05
[2021-05-27] MEDS: BETHANECHOL 25 MG (URECHOLINE) TAB PO SCH (05:42)
[2021-05-27] MEDS: MEXILETINE 150 MG (MEXITIL) CAPSULE PO SCH ×3 (05:42→21:51)
[2021-05-27] MEDS: CATHETER FLUSH 10 ML SYR IVP SCH ×3 (05:43→21:51)
[2021-05-27 07:14] VITALS: BP 125/82
[2021-05-27] MEDS: SOTALOL 80 MG (BETAPACE) TAB PO SCH ×2 (08:29→20:44)
[2021-05-27] MEDS: lisINopril 20 MG (PRINIVIL) TABLET PO SCH (08:30)
[2021-05-27] MEDS: SENNA W/DOCUSATE (SENOKOT S) TABLET PO SCH ×2 (08:30→20:43)
[2021-05-27] MEDS: ASPIRIN E.C. 81 MG (ECOTRIN) TAB PO SCH (08:30)
[2021-05-27] MEDS: TAMSULOSIN 0.4 MG (FLOMAX) CAP PO SCH ×2 (08:30→20:44)
[2021-05-27] MEDS: DOCUSATE SODIUM 100 MG (COLACE) CAP PO SCH ×2 (08:31→20:43)
[2021-05-27] MEDS: fluCOnazole (DIFLUCAN) 100 MG TAB PO SCH (08:31)
[2021-05-27] MEDS: amLODIPine 5 MG (NORVASC) TAB PO SCH (08:31)
[2021-05-27] MEDS: polyethylene glycoL POWDER 17 GM (MIRALAX) PACK PO SCH ×2 (08:31→20:44)
--- NOTE | 2021-05-27 11:14 | Physical Therapy Daily Note ---
PT Daily Note-Current Subjective Pt in bed upon arrival and agrees to perform bed exs requests to not get out of bed. Pt does not reports any pain this date. Mental Status Patient Orientation: Person, Place, Time, Normal For Age Transfers SCALE: Activities may be completed with or without assistive devices. 8-Mfdygtzppk-bekefrx completes the activity by him/herself with no assistance from a helper. 5-Set-up or Clean-up Assistance-helper sets up or cleans up; patient completes activity. [place] assists only prior to or following the activity. 4-Supervision or Touching Assistance-helper provides verbal cues and/or touching/steadying and/or contact guard assistance as patient completes activity. Assistance may be provided throughout the activity or intermittently. 3-Partial/Moderate Assistance-helper does LESS THAN HALF the effort. [place] lifts, holds or supports trunk or limbs, but provides less than half the effort. 2-Substantial/Maximal Assistance-helper does MORE THAN HALF the effort. [place] lifts or holds trunk or limbs and provides more than half the effort. 7-Uodcvgcxe-ddrauu does ALL the effort. Patient does none of the effort to complete the activity. Or, the assistance of 2 or more helpers is required for the patient to complete the activity. If activity was not attempted, code reason: 7-Patient Refused. 9-Not Applicable-not attempted and the patient did not perform the activity before the current illness, exacerbation or injury. 10-Not Attempted due to Environmental Limitations-(lack of equipment, weather restraints, etc.). 88-Not Attempted due to Medical Conditions or Safety Concerns. Weight Bearing Right Lower Extremity: Right Non Weight Bearing Left Lower Extremity: Left Full Weight Bearing Patient 3 weeks NWB right LE from admit on 05-20-21; Reassess 06-10-21 Exercises Supine Ex: Ankle pumps, Quad Set, Rolling, Glut sets, Heel Slides, Short Arc Quads, Straight leg raise, Hip abd/add Supine Reps: 20 Assessment Current Status: Good Progress Pt able to perform all supine exs but requires tactile cues in order to perform exs correctly. PT Short Term Goals Short Term Goals Time Frame: Jun 07, 2021 Roll Left & Right: 5 Sit to lyin Lying to sitting on side of be: 5 Sit to stand: 5 Chair/sol-cd-jnyhl transfer: 5 Toilet transfer: 5 Car transfer: 5 Walk 10 feet: 4 Walk 50 feet with two turns: 4 Walk 150 feet: 3 PT [facility] Goals Nurse Plastics Goals PT [facility] Goals Time Frame: Jun 30, 2021 Roll Left & Right (QC): 6 Sit to Lying (QC): 6 Lying-Sitting on Side/Bed(QC): 6 Sit to Stand (QC): 6 Chair/Nrs-ur-Onwmm Xfer(QC): 6 Toilet Transfer (QC): 6 Car Transfer (QC): 6 Does the Patient Walk: Yes Walk 10 feet (QC): 5 Walk 50ft with 2 Turns (QC): 5 Walk 150 ft (QC): 4 Walking 10ft on Uneven Surface: 4 1 Step (curb) (QC): 3 4 Steps (QC): 3 12 Steps (QC): 3 Picking up an Object (QC): 4 Does the Pt use WC or Scooter?: No Wheel 50 feet with 2 turns (QC: 88 Wheel 150 feet: 88 PT Plan Problem List Problem List: Activity Tolerance, Functional Strength Treatment/Plan Treatment Plan: Continue Plan of Care Treatment Plan: Bed Mobility, Education, Functional Activity Mallika, Functional Strength, Group Therapy, Gait, Safety, Therapeutic Exercise, Transfers Treatment Duration: Jul 01, 2021 Frequency: At least 5 of 7 days/Wk (IRF) Estimated Hrs Per Day: 1.5 hours per day Patient and/or Family Agrees t: Yes Safety Risks/Education Patient Education: Correct Positioning Teaching Recipient: Patient Teaching Methods: Discussion Response to Teaching: Return Demonstration Time/GCodes Time In: 920 Time Out: 935 Total Billed Treatment Time: 15 Total Billed Treatment 1, Ex CECILIO ROSS KILN LOADER May 27, 2021 11:14
--- NOTE | 2021-05-27 11:45 | CONSULTATION REPORT ---
DATE OF SERVICE: 05/27/2021 ATTENDING PHYSICIAN: Dr. Maciel. SUMMARY: A 76-year-old white man admitted for rehabilitation after a fracture of the fibula right side, treated conservatively by Dr. Albright who has been having retention with failed trial of voiding. The patient had missed history of BPH and prostatism, put on Flomax 0.4 mg daily by the [facility] and failed trial of voidings. Dr. Maciel increase his Flomax to b.i.d. and start him on Urecholine. Rectal exam was deferred because of his legs situation. IMPRESSION: Benign prostatic hyperplasia with prostatism, possible neurogenic bladder. PLAN: I explained to the patient the possible combination of prostate and bladder issues. We will hold the Urecholine at this point until I do a cystoscopy and check the status of the prostate and determine the next step. We will do a flexible cystoscopy at bedside depending on the operating room schedule as well as the [place] need authorization. We will check with my office on that on Saturday. Meanwhile, we will leave the catheter in and keep him off just on the Flomax b.i.d. Plan was fully explained to the patient. Job ID: [id number] DocumentID: [id number] Dictated Date: 05/27/2021 09:56:36 Site Supervising Technical Operator Date: 05/27/2021 11:45:13 Dictated By: ANABELLA PORTER MD
[2021-05-27] MEDS ORDERED: VANCOMYCIN 1500 MG/NS 500 ML IVPB IV SCH ×2 (12:00)
[2021-05-27] MEDS: ACETAMINOPHEN 325 MG TABLET PO PRN ×2 (12:04→20:53)
[2021-05-27] MEDS ORDERED: MAGNESIUM CITRATE 300 ML BTL PO ONE (13:00)
[2021-05-27] MEDS: AMOXICILLIN 500 MG (POLYMOX) CAP PO SCH ×2 (16:22→20:44)
[2021-05-27] MEDS: BISACODYL 10 MG SUPP (DULCOLAX) PR PRN (16:24)
[2021-05-27] MEDS: ENOXAPARIN 40 MG/0.4 ML (LOVENOX) SYR SC SCH (18:08)
[2021-05-27 19:25] VITALS: BP 116/72
--- NOTE | 2021-05-28 04:36 | PM&R Progress Note ---
Subjective HPI/CC On Admission Date Seen by Provider: May 28, 2021 Time Seen by Provider: 06:10 Subjective/Events-last exam 05/28/2021: Patient doing very well Tolerating antibiotic change Worried about his UTI I reassured him 05/27/21: Patient doing well Duong cath will be placed and remain in Complete retention noted Seems like he has neurogenic bladder and did not address this for a long time Enterococcus noted and will DC Vanc and start Amoxil to complete treatment Very flat affect is chronic 05/26/2021: Pt is doing pretty well UTI diagnosed is enterococcus so we will add Vancomycin Patient reports he does have some retention at home and will Enterococcus UTI I think he has had struggles with this before Will also add Diflucan for yeast Overall doing very well with pain now 05/25/2021: Patient doing really well Settling in nicely Discontinue Accu-Cheks since he only checks his sugar twice weekly Straight cath required due to urinary retention Send off lab for UA due to cloudiness Pain is controlled on hydrocodone Review of Systems General: Fatigue, Malaise Objective Exam Vital Signs Vital Signs Date Time Temp Pulse Resp B/P (MAP) Pulse Ox O2 Delivery O2 Flow Rate FiO2 05/28/21 14:17 Room Air 0.00 05/28/21 10:13 65 05/28/21 07:13 36.8 20 141/79 (99) 92 Capillary Refill : General Appearance: No Apparent Distress, WD/WN, Chronically ill HEENT: PERRL/EOMI, Normal ENT Inspection, Pharynx Normal Neck: Full Range of Motion, Normal Inspection, Non Tender, Supple, Carotid Bruit Respiratory: Chest Non Tender, Lungs Clear, Normal Breath Sounds, No Accessory Muscle Use, No Respiratory Distress Cardiovascular: Regular Rate, Rhythm, No Edema, No Gallop, No JVD, No Murmur, Normal Peripheral Pulses Gastrointestinal: Normal Bowel Sounds, No Organomegaly, No Pulsatile Mass, Non Tender, Soft Back: Normal Inspection, No CVA Tenderness, No Vertebral Tenderness Extremity: Normal Capillary Refill, Normal Inspection, Normal Range of Motion (Except right leg in bed), Non Tender, No Calf Tenderness, No Pedal Edema Neurologic/Psychiatric: Alert, Oriented x3, No Motor/Sensory Deficits, Normal Mood/Affect, Abnormal Gait, Motor Weakness (Generalized) Skin: Normal Color, Warm/Dry Lymphatic: No Adenopathy Results/Procedures Lab Patient resulted labs reviewed. FIM Transfers Therapy Code Descriptions/Definitions Functional [place] Measure: 0=Not Assessed/NA 4=Minimal Assistance 1=Total Assistance 5=Supervision or Setup 2=Maximal Assistance 6=Modified [place] 3=Moderate Assistance 7=Complete IndependenceSCALE: Activities may be completed with or without assistive devices. 3-Izxnbhxftb-zfukvjg completes the activity by him/herself with no assistance from a helper. 5-Set-up or Clean-up Assistance-helper sets up or cleans up; patient completes activity. [place] assists only prior to or following the activity. 4-Supervision or Touching Assistance-helper provides verbal cues and/or touching/steadying and/or contact guard assistance as patient completes activity. Assistance may be provided throughout the activity or intermittently. 3-Partial/Moderate Assistance-helper does LESS THAN HALF the effort. [place] lifts, holds or supports trunk or limbs, but provides less than half the effort. 2-Substantial/Maximal Assistance-helper does MORE THAN HALF the effort. [place] lifts or holds trunk or limbs and provides more than half the effort. 4-Hjefxspwi-qghbjv does ALL the effort. Patient does none of the effort to complete the activity. Or, the assistance of 2 or more helpers is required for the patient to complete the activity. If activity was not attempted, code reason: 7-Patient Refused. 9-Not Applicable-not attempted and the patient did not perform the activity before the current illness, exacerbation or injury. 10-Not Attempted due to Environmental Limitations-(lack of equipment, weather restraints, etc.). 88-Not Attempted due to Medical Conditions or Safety Concerns. Roll Left to Right (QC): 6 Sit to Lying (QC): 6 Sit to Stand (QC): 4 Chair/Lqk-tp-Lfgkh Xfer(QC): 3 Car Transfer (QC): 4 Gait Training Does the Patient Walk?: Yes Walk 10 feet (QC): 3 Walk 50 ft with 2 Turns(QC): 88 Walk 150 ft (QC): 88 Walking 10ft/uneven surface-QC: 88 Gait Persons Needed: 2 Gait Assistive Device: Parallel Bars Wheelchair Training Does the Pt Use a Wheelchair?: Yes Distance: 100 Wheel 50 ft with 2 turns (QC): 4 Wheel 150 ft (QC): 4 Type of Wheelchair: Manual Stair Training #of Steps: 0 1 Step (curb) (QC): 88 4 Steps (QC): 88 12 Steps (QC): 88 Balance Picking up an Object (QC): 88 ADL-Treatment Eating (QC): 6 Oral Hygiene (QC): 6 Shower/Bathe Self (QC): 4 (SBA, pt completed fully in sitting.) Upper Body Dressing (QC): 5 Lower Body Dressing (QC): 3 On/Off Footwear (QC): 3 (Pt able to doff/don L gripper socks. Min A with doffing R CAM boot, total assist with donning R CAM boot.) Toileting Hygiene (QC): 1 (Assist x2 in stand for pant hike.) Toilet Transfer (QC): 3 Assessment/Plan Assessment and Plan Assess & Plan/Chief Complaint Assessment: R distal fibular fracture NSTEMI, s/p cardioversion on 05/19 Ventricular tachycardia Cardiogenic shock, resolved T2DM Arrhythmogenic Right Ventricular Dysplasia NEVAEH, resolved Cerebral palsy history BPH DVT risk Urinary retention Chronic Constipation UTI Enterococcus placed on Vanco empirically 05/26/2021 then changed to Amoxil after sensitivities back Plan: Aggressive rehab Urinary retention management Appreciate cardiology 05/25/2021: Await urine culture Aggressive rehab Pain control 05/26/2021: Vancomycin Supportive care 05/27/21: DC Vanc Amoxil Duong cath 05/28/2021: Amoxil Duong cath Urology (1) Right fibular fracture Status: Acute (2) Ventricular tachycardia Status: Acute (3) Cardiogenic shock Status: Acute (4) Arrhythmogenic right ventricular dysplasia Status: Acute (5) Primary hypertension (6) Mixed hyperlipidemia (7) Cerebral palsy VALERIY POTTS DO May 28, 2021 04:36
[2021-05-28] MEDS: CATHETER FLUSH 10 ML SYR IVP SCH ×3 (06:18→20:08)
[2021-05-28] MEDS: MEXILETINE 150 MG (MEXITIL) CAPSULE PO SCH ×3 (06:18→21:08)
[2021-05-28 07:13] VITALS: BP 141/79
[2021-05-28] MEDS: DOCUSATE SODIUM 100 MG (COLACE) CAP PO SCH ×2 (08:12→20:04)
[2021-05-28] MEDS: ASPIRIN E.C. 81 MG (ECOTRIN) TAB PO SCH (08:12)
[2021-05-28] MEDS: TAMSULOSIN 0.4 MG (FLOMAX) CAP PO SCH ×2 (08:12→20:04)
[2021-05-28] MEDS: AMOXICILLIN 500 MG (POLYMOX) CAP PO SCH ×3 (08:12→20:04)
[2021-05-28] MEDS: SENNA W/DOCUSATE (SENOKOT S) TABLET PO SCH ×2 (08:12→20:04)
[2021-05-28] MEDS: SOTALOL 80 MG (BETAPACE) TAB PO SCH ×2 (08:13→20:03)
[2021-05-28] MEDS: fluCOnazole (DIFLUCAN) 100 MG TAB PO SCH (08:13)
[2021-05-28] MEDS: amLODIPine 5 MG (NORVASC) TAB PO SCH (08:13)
[2021-05-28] MEDS: lisINopril 20 MG (PRINIVIL) TABLET PO SCH (08:13)
[2021-05-28] MEDS: polyethylene glycoL POWDER 17 GM (MIRALAX) PACK PO SCH ×2 (08:17→20:08)
[2021-05-28] MEDS: ACETAMINOPHEN 325 MG TABLET PO PRN ×2 (08:17→16:54)
[2021-05-28] MEDS ORDERED: TROUGH ORDER-PHARMACY XX NR (11:00)
[2021-05-28] MEDS: ENOXAPARIN 40 MG/0.4 ML (LOVENOX) SYR SC SCH (18:05)
[2021-05-28 19:52] VITALS: BP 108/64
--- NOTE | 2021-05-29 05:25 | PM&R Progress Note ---
Subjective HPI/CC On Admission Date Seen by Provider: May 29, 2021 Time Seen by Provider: 09:15 Subjective/Events-last exam 05/29/21: Pt is doing pretty well Will have a cystoscopy tomorrow by Dr. Lomeli I predict neurogenic bladder likely will require mendez catheter and suprapubic catheter ultimately Had a large bowel movement on 05/27/21 Pain is controlled 05/28/2021: Patient doing very well Tolerating antibiotic change Worried about his UTI I reassured him 05/27/21: Patient doing well Mendez cath will be placed and remain in Complete retention noted Seems like he has neurogenic bladder and did not address this for a long time Enterococcus noted and will DC Vanc and start Amoxil to complete treatment Very flat affect is chronic 05/26/2021: Pt is doing pretty well UTI diagnosed is enterococcus so we will add Vancomycin Patient reports he does have some retention at home and will Enterococcus UTI I think he has had struggles with this before Will also add Diflucan for yeast Overall doing very well with pain now 05/25/2021: Patient doing really well Settling in nicely Discontinue Accu-Cheks since he only checks his sugar twice weekly Straight cath required due to urinary retention Send off lab for UA due to cloudiness Pain is controlled on hydrocodone Review of Systems General: Fatigue, Malaise Genitourinary: Retention Musculoskeletal: leg pain Objective Exam Vital Signs Vital Signs Date Time Temp Pulse Resp B/P (MAP) Pulse Ox O2 Delivery O2 Flow Rate FiO2 05/29/21 09:48 Room Air 05/29/21 07:48 36.5 78 18 154/85 (108) 92 05/28/21 14:17 0.00 Capillary Refill : General Appearance: No Apparent Distress, WD/WN, Chronically ill HEENT: PERRL/EOMI, Normal ENT Inspection, Pharynx Normal Neck: Full Range of Motion, Normal Inspection, Non Tender, Supple, Carotid Br uit Respiratory: Chest Non Tender, Lungs Clear, Normal Breath Sounds, No Accessory Muscle Use, No Respiratory Distress Cardiovascular: Regular Rate, Rhythm, No Edema, No Gallop, No JVD, No Murmur, Normal Peripheral Pulses Gastrointestinal: Normal Bowel Sounds, No Organomegaly, No Pulsatile Mass, Non Tender, Soft Back: Normal Inspection, No CVA Tenderness, No Vertebral Tenderness Extremity: Normal Capillary Refill, Normal Inspection, Normal Range of Motion (Except right leg in bed), Non Tender, No Calf Tenderness, No Pedal Edema Neurologic/Psychiatric: Alert, Oriented x3, No Motor/Sensory Deficits, Normal Mood/Affect, Abnormal Gait, Motor Weakness (Generalized) Skin: Normal Color, Warm/Dry Lymphatic: No Adenopathy Results/Procedures Lab Laboratory Tests 05/29/21 05:45 Patient resulted labs reviewed. FIM Transfers Therapy Code Descriptions/Definitions Functional [place] Measure: 0=Not Assessed/NA 4=Minimal Assistance 1=Total Assistance 5=Supervision or Setup 2=Maximal Assistance 6=Modified [place] 3=Moderate Assistance 7=Complete IndependenceSCALE: Activities may be completed with or without assistive devices. 4-Sbuvclttvg-vuozfeg completes the activity by him/herself with no assistance from a helper. 5-Set-up or Clean-up Assistance-helper sets up or cleans up; patient completes activity. [place] assists only prior to or following the activity. 4-Supervision or Touching Assistance-helper provides verbal cues and/or touching/steadying and/or contact guard assistance as patient completes activity. Assistance may be provided throughout the activity or intermittently. 3-Partial/Moderate Assistance-helper does LESS THAN HALF the effort. [place] lifts, holds or supports trunk or limbs, but provides less than half the effort. 2-Substantial/Maximal Assistance-helper does MORE THAN HALF the effort. [place] lifts or holds trunk or limbs and provides more than half the effort. 4-Adibivjid-cnuehe does ALL the effort. Patient does none of the effort to complete the activity. Or, the assistance of 2 or more helpers is required for the patient to complete the activity. If activity was not attempted, code reason: 7-Patient Refused. 9-Not Applicable-not attempted and the patient did not perform the activity before the current illness, exacerbation or injury. 10-Not Attempted due to Environmental Limitations-(lack of equipment, weather restraints, etc.). 88-Not Attempted due to Medical Conditions or Safety Concerns. Roll Left to Right (QC): 6 Sit to Lying (QC): 6 Sit to Stand (QC): 4 Chair/Yfu-kd-Fusvi Xfer(QC): 3 Car Transfer (QC): 4 Gait Training Does the Patient Walk?: Yes Walk 10 feet (QC): 3 Walk 50 ft with 2 Turns(QC): 88 Walk 150 ft (QC): 88 Walking 10ft/uneven surface-QC: 88 Gait Persons Needed: 2 Gait Assistive Device: Parallel Bars Wheelchair Training Does the Pt Use a Wheelchair?: Yes Distance: 100 Wheel 50 ft with 2 turns (QC): 4 Wheel 150 ft (QC): 4 Type of Wheelchair: Manual Stair Training #of Steps: 0 1 Step (curb) (QC): 88 4 Steps (QC): 88 12 Steps (QC): 88 Balance Picking up an Object (QC): 88 ADL-Treatment Eating (QC): 6 Oral Hygiene (QC): 6 Shower/Bathe Self (QC): 4 (SBA, pt completed fully in sitting.) Upper Body Dressing (QC): 5 Lower Body Dressing (QC): 3 On/Off Footwear (QC): 3 (Pt able to doff/don L gripper socks. Min A with doffing R CAM boot, total assist with donning R CAM boot.) Toileting Hygiene (QC): 1 (Assist x2 in stand for pant hike.) Toilet Transfer (QC): 3 Assessment/Plan Assessment and Plan Assess & Plan/Chief Complaint Assessment: R distal fibular fracture NSTEMI, s/p cardioversion on 05/19 Ventricular tachycardia Cardiogenic shock, resolved T2DM Arrhythmogenic Right Ventricular Dysplasia NEVAEH, resolved Cerebral palsy history BPH DVT risk Urinary retention Chronic Constipation UTI Enterococcus placed on Vanco empirically 05/26/2021 then changed to Amoxil after sensitivities back Plan: Aggressive rehab Urinary retention management Appreciate cardiology 05/25/2021: Await urine culture Aggressive rehab Pain control 05/26/2021: Vancomycin Supportive care 05/27/21: DC Vanc Amoxil Mendez cath 05/28/2021: Amoxil Mendez cath Urology 05/29/21: Cysto tomorrow Appreciate Dr Lomeli (1) Right fibular fracture Status: Acute (2) Ventricular tachycardia Status: Acute (3) Cardiogenic shock Status: Acute (4) Arrhythmogenic right ventricular dysplasia Status: Acute (5) Primary hypertension (6) Mixed hyperlipidemia (7) Cerebral palsy VALERIY POTTS DO May 29, 2021 05:25
[2021-05-29] MEDS: MEXILETINE 150 MG (MEXITIL) CAPSULE PO SCH ×3 (05:42→21:55)
[2021-05-29] MEDS: CATHETER FLUSH 10 ML SYR IVP SCH ×2 (05:42→13:22)
[2021-05-29 05:57] LABS: BASOPHILS % (AUTO) 0 % (0-10); EOSINOPHILS # (AUTO) 0.2 10^3/uL (0.0-0.3); EOSINOPHILS % (AUTO) 2 % (0-10); HEMATOCRIT 34 % (40-54); HEMOGLOBIN 11.5 g/dL (13.3-17.7); LYMPHOCYTES # (AUTO) 1.1 10^3/uL (1.0-4.0); LYMPHOCYTES % (AUTO) 12 % (12-44); MEAN CORPUSCULAR HEMOGLOBIN 34 pg (25-34); MEAN CORPUSCULAR HGB CONC 34 g/dL (32-36); MEAN CORPUSCULAR VOLUME 100 fL (80-99); MEAN PLATELET VOLUME 10.1 fL (9.0-12.2); MONOCYTES # (AUTO) 0.7 10^3/uL (0.0-1.0); MONOCYTES % (AUTO) 8 % (0-12); NEUTROPHILS # (AUTO) 6.7 10^3/uL (1.8-7.8); NEUTROPHILS % (AUTO) 77 % (42-75); PLATELET COUNT 190 10^3/uL (130-400); WHITE BLOOD COUNT 8.7 10^3/uL (4.3-11.0)
[2021-05-29 06:24] LABS: ALBUMIN 3.1 GM/DL (3.2-4.5); BILIRUBIN,TOTAL 0.7 MG/DL (0.1-1.0); CALCIUM 8.6 MG/DL (8.5-10.1); CREATININE SERUM 0.97 MG/DL (0.60-1.30); POTASSIUM 4.1 MMOL/L (3.6-5.0)
[2021-05-29 07:48] VITALS: BP 154/85
[2021-05-29] MEDS: fluCOnazole (DIFLUCAN) 100 MG TAB PO SCH (07:56)
[2021-05-29] MEDS: DOCUSATE SODIUM 100 MG (COLACE) CAP PO SCH ×2 (07:57→21:56)
[2021-05-29] MEDS: SOTALOL 80 MG (BETAPACE) TAB PO SCH ×2 (07:57→21:55)
[2021-05-29] MEDS: SENNA W/DOCUSATE (SENOKOT S) TABLET PO SCH ×2 (07:57→21:55)
[2021-05-29] MEDS: ASPIRIN E.C. 81 MG (ECOTRIN) TAB PO SCH (07:57)
[2021-05-29] MEDS: amLODIPine 5 MG (NORVASC) TAB PO SCH (07:57)
[2021-05-29] MEDS: lisINopril 20 MG (PRINIVIL) TABLET PO SCH (07:57)
[2021-05-29] MEDS: TAMSULOSIN 0.4 MG (FLOMAX) CAP PO SCH ×2 (07:57→21:56)
[2021-05-29] MEDS: AMOXICILLIN 500 MG (POLYMOX) CAP PO SCH ×3 (07:57→21:53)
[2021-05-29] MEDS: polyethylene glycoL POWDER 17 GM (MIRALAX) PACK PO SCH ×2 (07:59→22:48)
--- NOTE | 2021-05-29 09:00 | Progress Note - Urology ---
Progress Note-Urology Progress Notes/Assess & Plan Progress/Assessment & Plan PLAN CYSTO TOMORROW. FULLY EXPLAINED. PLAN GET [facility] AUTHORIZATION Final Diagnosis RETENTION ANABELLA PORTER MD May 29, 2021 09:00
--- NOTE | 2021-05-29 10:16 | Occupational Ther Daily Note ---
OT Current Status-Daily Note Subjective Pt very forgetful, unable to remember events from weekend. Appearance Pt left sitting in w/c, physical therapy entering room at OT departure. Mental Status/Objective Patient Orientation: Person, Place Attachments: Duong Catheter ADL-Treatment Therapy Code Descriptions/Definitions Functional [place] Measure: 0=Not Assessed/NA 4=Minimal Assistance 1=Total Assistance 5=Supervision or Setup 2=Maximal Assistance 6=Modified [place] 3=Moderate Assistance 7=Complete IndependenceSCALE: Activities may be completed with or without assistive devices. 6-Yaqewfvvyw-gkkhajj completes the activity by him/herself with no assistance from a helper. 5-Set-up or Clean-up Assistance-helper sets up or cleans up; patient completes activity. [place] assists only prior to or following the activity. 4-Supervision or Touching Assistance-helper provides verbal cues and/or touching/steadying and/or contact guard assistance as patient completes activity. Assistance may be provided throughout the activity or intermittently. 3-Partial/Moderate Assistance-helper does LESS THAN HALF the effort. [place] lifts, holds or supports trunk or limbs, but provides less than half the effort. 2-Substantial/Maximal Assistance-helper does MORE THAN HALF the effort. [place] lifts or holds trunk or limbs and provides more than half the effort. 8-Iybjfeita-lvdhis does ALL the effort. Patient does none of the effort to complete the activity. Or, the assistance of 2 or more helpers is required for the patient to complete the activity. If activity was not attempted, code reason: 7-Patient Refused. 9-Not Applicable-not attempted and the patient did not perform the activity before the current illness, exacerbation or injury. 10-Not Attempted due to Environmental Limitations-(lack of equipment, weather restraints, etc.). 88-Not Attempted due to Medical Conditions or Safety Concerns. Oral Hygiene (QC): 6 Shower/Bathe Self (QC): 3 Upper Body Dressing (QC): 5 Lower Body Dressing (QC): 2 On/Off Footwear: 1 Toileting Hygiene (QC): 1 (folety catheter) Toilet Transfer (QC): 3 Supine>sit: mod-max a. Pt with significant retropulsion this date. Requires cues and assist to shift weight forward. Extra time to achieve balance. All transfers mod A. Poor adherence to NWB on R foot. Needs extra lifting assist this date. Shaving and oral care completed at w/c level, no assist or cues required. Shower performed; 100% completed in sitting. Min a to wash L foot, pt able to reach R foot with cross over method. Cues for lateral pelvic leans in order to wash buttocks; min a still needed. Pt able to wash all other body parts without assist. Clothing donned seated in w/c. Assist needed to thread L foot into clothing and to manage over hips in standing. Pt is unable to sustain weight bearing restrictions in standing, but does appear to be trying. Dependent to don L sock and R cam boot this date. Pt reports he normally does not wear socks, only slip on shoes. Pt will benefit from education/practice on donning/doffing cam boot in future sessions. Education OT Patient Education: Correct positioning, Energy conservation, Modified ADL te chniques, Progress toward Goal/Update tx plan, Purpose of tx/functional activities, Reviewed precautions, Safety issues, Transfer techniques, W/C management Teaching Recipient: Patient Teaching Methods: Demonstration, Discussion Response to Teaching: Verbalize Understanding, Reinforcement Needed OT Short Term Goals Short Term Goals Time Frame: Jun 07, 2021 Toileting hygiene: 3 Shower/bathe self: 5 Lower body dressin Putting on/taking off footwear: 4 OT [facility] Goals Reeling Machine Setup Operator Goals Time Frame: Jun 30, 2021 Eating (QC): 6 Oral Hygiene (QC): 6 Toileting Hygiene (QC): 6 Shower/Bathe Self (QC): 6 Upper Body Dressing (QC): 6 Lower Body Dressing (QC): 6 On/Off Footwear (QC): 6 Additional Goals: 1-Demonstrate ADL Tasks, 2-Verbalize Understanding, 3- ImproveStrength/[place] 1=Demonstrate adherence to instructed precautions during ADL tasks. 2=Patient will verbalize/demonstrate understanding of assistive devices/modifications for ADL. 3=Patient will improve strength/tolerance for activity to enable patient to perform ADL's. OT Education/Plan Problem List/Assessment Assessment: Decreased Activ Tolerance, Decreased Safety Aware, Decreased UE Strength, Dependent Transfers, Impaired Bed Mobility, Impaired Cognition, Impaired Funct Balance, Impaired I ADL's, Impaired Self-Care Skills Discharge Recommendations Plan/Recommendations: Continue POC Treatment Plan/Plan of Care Treatment,Training & Education: Yes Patient would benefit from OT for education, treatment and training to promote independence in ADL's, mobility, safety and/or upper extremity function for ADL's. Plan of Care: ADL Retraining, Functional Mobility, Group Exercise/Act as Ind, UE Funct Exercise/Act Treatment Duration: Jun 30, 2021 Frequency: At least 5 of 7 days/Wk (IRF) Estimated Hrs Per Day: 1.5 hours per day Agreement: Yes Rehab Potential: Fair Time/GCodes Start Time: 08:30 Stop Time: 09:30 Total Time Billed (hr/min): 60 Billed Treatment Time 1 visit ADL x4 Yuridia Spencer OT May 29, 2021 10:16
--- NOTE | 2021-05-29 10:28 | Progress Note ---
AURE [place] 05/29/21 1028: Progress Note Patient has no complaints today. From my experience, patient does not express concerns and never reports anything. Duong cath in and urology plans on cystography tomorrow am. Currently on Amoxicillin 500mg TID for UTI. Will continue to follow. JESSIKA POTTS DO 05/30/21 0527: Supervisory-Addendum Brief Verification & Attestation Participated in pt care: history, MDM, physical Personally performed: exam, history, MDM, supervision of care Care discussed with: Medical Student Procedures: n/a Results interpretation: Verified all documentation Verification and Attestation of Medical Student E/M Service A medical student performed and documented this service in my presence. I reviewed and verified all information documented by the medical student and made modifications to such information, when appropriate. I personally performed the physical exam and medical decision making. Jessika Potts May 30, 2021,05:26 AURE [place] May 29, 2021 10:28 JESSIKA POTTS DO May 30, 2021 05:27
--- NOTE | 2021-05-29 10:29 | Physical Therapy Daily Note ---
PT Daily Note-Current Subjective Patient had just finished with OT prior to entry. Pt reports getting a decent nights rest, and reports he does not have any pain at the leg. Pain Location: No Pain Reported Mental Status Patient Orientation: Person, Place, Situation Attachments: Duong Catheter Transfers SCALE: Activities may be completed with or without assistive devices. 8-Zhvpfiaxka-kcilbkp completes the activity by him/herself with no assistance from a helper. 5-Set-up or Clean-up Assistance-helper sets up or cleans up; patient completes activity. [place] assists only prior to or following the activity. 4-Supervision or Touching Assistance-helper provides verbal cues and/or touching/steadying and/or contact guard assistance as patient completes activity. Assistance may be provided throughout the activity or intermittently. 3-Partial/Moderate Assistance-helper does LESS THAN HALF the effort. [place] lifts, holds or supports trunk or limbs, but provides less than half the effort. 2-Substantial/Maximal Assistance-helper does MORE THAN HALF the effort. [place] lifts or holds trunk or limbs and provides more than half the effort. 1-Glcuxvtia-bxifcj does ALL the effort. Patient does none of the effort to complete the activity. Or, the assistance of 2 or more helpers is required for the patient to complete the activity. If activity was not attempted, code reason: 7-Patient Refused. 9-Not Applicable-not attempted and the patient did not perform the activity b efore the current illness, exacerbation or injury. 10-Not Attempted due to Environmental Limitations-(lack of equipment, weather restraints, etc.). 88-Not Attempted due to Medical Conditions or Safety Concerns. Sit to Stand (QC): 2 Chair/Zhj-kr-Ugomn Xfer(QC): 2 Weight Bearing Right Lower Extremity: Right Non Weight Bearing Left Lower Extremity: Left Full Weight Bearing Patient 3 weeks NWB right LE from admit on 05-20-21; Reassess 06-10-21 Gait Training Does the Patient Walk?: No and Walking Goal IS indicated Wheelchair Training Does the Pt Use a Wheelchair?: Yes Wheel 50 ft with 2 turns (QC): 4 Wheel 150 ft (QC): 4 Type of Wheelchair: Manual 250ft Exercises Seated Therapy Exercises: Sit to stand (2 sets 2 reps), Long arc quads, Hip abd/add Seated Reps: 10 Standing: Hamstring curls (8 reps), 3 way Ex=Flex, Abd, Ext ([address]) Treatments Attempted single leg hops. 5 reps with no foot clearance. Assessment Current Status: Poor Progress Patient is very slow with wheelchair mobility, but can navigate a relatively open environment in the hallway, through doors, and into room. Patient demonstrated weakness with the L LE as he was unable to hop in the parrallel bars. Patient also demonstrated weakness with sit to stands, as he was only able to complete 2sets of 2 reps requiring max1. Patient could not tolerate standing in parrallel bars for very long and required multiple sitting rest breaks between sets. Patient is not always compliant with his weight bearing status. PT Short Term Goals Short Term Goals Time Frame: Jun 07, 2021 Roll Left & Right: 5 Sit to lyin Lying to sitting on side of be: 5 Sit to stand: 5 Chair/rww-vp-[place] transfer: 5 Toilet transfer: 5 Car transfer: 5 Walk 10 feet: 4 Walk 50 feet with two turns: 4 Walk 150 feet: 3 PT Stopper Maker Goals Stopper Maker Goals PT Nursing Home Goals Time Frame: Jun 30, 2021 Roll Left & Right (QC): 6 Sit to Lying (QC): 6 Lying-Sitting on Side/Bed(QC): 6 Sit to Stand (QC): 6 Chair/Oyf-he-Pdjxv Xfer(QC): 6 Toilet Transfer (QC): 6 Car Transfer (QC): 6 Does the Patient Walk: Yes Walk 10 feet (QC): 5 Walk 50ft with 2 Turns (QC): 5 Walk 150 ft (QC): 4 Walking 10ft on Uneven Surface: 4 1 Step (curb) (QC): 3 4 Steps (QC): 3 12 Steps (QC): 3 Picking up an Object (QC): 4 Does the Pt use WC or Scooter?: No Wheel 50 feet with 2 turns (QC: 88 Wheel 150 feet: 88 PT Plan Problem List Problem List: Activity Tolerance, Functional Strength, Safety, Balance, Gait, Transfer, ROM Treatment/Plan Treatment Plan: Continue Plan of Care Treatment Plan: Bed Mobility, Education, Functional Activity Mallika, Functional Strength, Group Therapy, Gait, Safety, Therapeutic Exercise, Transfers Treatment Duration: Jul 01, 2021 Frequency: At least 5 of 7 days/Wk (IRF) Estimated Hrs Per Day: 1.5 hours per day Patient and/or Family Agrees t: Yes Safety Risks/Education Patient Education: Transfer Techniques, Reviewed Precautions, W/C Management, Safety Issues Teaching Recipient: Patient Teaching Methods: Demonstration, Discussion Response to Teaching: Verbalize Understanding, Return Demonstration Time/GCodes Time In: 929 Time Out: 1030 Total Billed Treatment Time: 60 Total Billed Treatment 1 visit EX 60min CHARLEE VELASCO PT May 29, 2021 10:29
[2021-05-29] MEDS: ACETAMINOPHEN 325 MG TABLET PO PRN ×2 (10:31→16:27)
--- NOTE | 2021-05-29 11:29 | Occupational Ther Daily Note ---
OT Current Status-Daily Note Subjective Pt resting in bed, agreeable to treatment. Appearance Pt left supine in bed, all needs within reach. ADL-Treatment Therapy Code Descriptions/Definitions Functional [place] Measure: 0=Not Assessed/NA 4=Minimal Assistance 1=Total Assistance 5=Supervision or Setup 2=Maximal Assistance 6=Modified [place] 3=Moderate Assistance 7=Complete IndependenceSCALE: Activities may be completed with or without assistive devices. 4-Ooodpsqfnu-ujrqkfs completes the activity by him/herself with no assistance from a helper. 5-Set-up or Clean-up Assistance-helper sets up or cleans up; patient completes activity. [place] assists only prior to or following the activity. 4-Supervision or Touching Assistance-helper provides verbal cues and/or touching/steadying and/or contact guard assistance as patient completes ac tivity. Assistance may be provided throughout the activity or intermittently. 3-Partial/Moderate Assistance-helper does LESS THAN HALF the effort. [place] lifts, holds or supports trunk or limbs, but provides less than half the effort. 2-Substantial/Maximal Assistance-helper does MORE THAN HALF the effort. [place] lifts or holds trunk or limbs and provides more than half the effort. 8-Wudwntrvz-bpvpmg does ALL the effort. Patient does none of the effort to complete the activity. Or, the assistance of 2 or more helpers is required for the patient to complete the activity. If activity was not attempted, code reason: 7-Patient Refused. 9-Not Applicable-not attempted and the patient did not perform the activity before the current illness, exacerbation or injury. 10-Not Attempted due to Environmental Limitations-(lack of equipment, weather restraints, etc.). 88-Not Attempted due to Medical Conditions or Safety Concerns. Other Treatment Pt participated in UE exercises with 2# dowel nona. Goal to promote increased strength, endurance, and coordination needed for functional tasks. Dowel nona utilized as visual aid secondary to uncoordinated bilateral UE movements. Cues to mirror R with L side. Pt often needs cues to slow speed. He will often start off with the correct technique but will then switch to a different movement after ~5-6 reps. tactile cues are then needed to return to correct movement as well as to maintain smooth control throughout. 10-15 reps, all planes. 1 set each. Education OT Patient Education: Correct positioning, Exercise program, Progress toward Goal/Update tx plan, Purpose of tx/functional activities, Safety issues Teaching Recipient: Patient Teaching Methods: Demonstration, Discussion Response to Teaching: Verbalize Understanding, Reinforcement Needed OT Short Term Goals Short Term Goals Time Frame: Jun 07, 2021 Toileting hygiene: 3 Shower/bathe self: 5 Lower body dressin Putting on/taking off footwear: 4 OT Surgical Coordinator Goals Surgical Coordinator Goals Time Frame: Jun 30, 2021 Eating (QC): 6 Oral Hygiene (QC): 6 Toileting Hygiene (QC): 6 Shower/Bathe Self (QC): 6 Upper Body Dressing (QC): 6 Lower Body Dressing (QC): 6 On/Off Footwear (QC): 6 Additional Goals: 1-Demonstrate ADL Tasks, 2-Verbalize Understanding, 3- ImproveStrength/M[place]ika 1=Demonstrate adherence to instructed precautions during ADL tasks. 2=Patient will verbalize/demonstrate understanding of assistive devices/modifications for ADL. 3=Patient will improve strength/tolerance for activity to enable patient to perform ADL's. OT Education/Plan Problem List/Assessment Assessment: Decreased Activ Tolerance, Decreased Safety Aware, Decreased UE Strength, Impaired Bed Mobility, Impaired Cognition, Impaired Coordination, Impaired Funct Balance, Impaired I ADL's, Impaired Self-Care Skills, Restricted Funct UE ROM Discharge Recommendations Plan/Recommendations: Continue POC Treatment Plan/Plan of Care Treatment,Training & Education: Yes Patient would benefit from OT for education, treatment and training to promote independence in ADL's, mobility, safety and/or upper extremity function for ADL's. Plan of Care: ADL Retraining, Functional Mobility, Group Exercise/Act as Ind, UE Funct Exercise/Act Treatment Duration: Jun 30, 2021 Frequency: At least 5 of 7 days/Wk (IRF) Estimated Hrs Per Day: 1.5 hours per day Agreement: Yes Rehab Potential: Fair Time/GCodes Start Time: 10:58 Stop Time: 11:28 Total Time Billed (hr/min): 30 Billed Treatment Time 1 visit EX riley SpencerYuridia OT May 29, 2021 11:29
--- NOTE | 2021-05-29 14:27 | Physical Therapy Daily Note ---
PT Daily Note-Current Subjective Patient was in bed upon entry and consented to treatment. Pain Location: No Pain Reported Mental Status Patient Orientation: Person, Place, Situation Attachments: Duong Catheter Transfers SCALE: Activities may be completed with or without assistive devices. 3-Amjlzkdqvv-jjzpqmh completes the activity by him/herself with no assistance from a helper. 5-Set-up or Clean-up Assistance-helper sets up or cleans up; patient completes activity. [place] assists only prior to or following the activity. 4-Supervision or Touching Assistance-helper provides verbal cues and/or touching/steadying and/or contact guard assistance as patient completes activity. Assistance may be provided throughout the activity or intermittently. 3-Partial/Moderate Assistance-helper does LESS THAN HALF the effort. [place] lifts, holds or supports trunk or limbs, but provides less than half the effort. 2-Substantial/Maximal Assistance-helper does MORE THAN HALF the effort. [place] lifts or holds trunk or limbs and provides more than half the effort. 1-Brernsqlc-novfzk does ALL the effort. Patient does none of the effort to complete the activity. Or, the assistance of 2 or more helpers is required for the patient to complete the activity. If activity was not attempted, code reason: 7-Patient Refused. 9-Not Applicable-not attempted and the patient did not perform the activity before the current illness, exacerbation or injury. 10-Not Attempted due to Environmental Limitations-(lack of equipment, weather restraints, etc.). 88-Not Attempted due to Medical Conditions or Safety Concerns. Sit to Stand (QC): 3 Chair/Guv-fo-Idtfp Xfer(QC): 3 Weight Bearing Right Lower Extremity: Right Non Weight Bearing Left Lower Extremity: Left Full Weight Bearing Patient 3 weeks NWB right LE from admit on 05-20-21; Reassess 06-10-21 Gait Training Does the Patient Walk?: No and Walking Goal IS indicated Wheelchair Training Does the Pt Use a Wheelchair?: Yes Exercises NuStep Minutes: 10 NuStep Workload: 4 Treatments LE strengthening, mobility Assessment Current Status: Fair Progress Patient does not appear very motivated. Patient verbalized that the 10min of NuStep machine was fatiguing, and stopped for rest break x2. Upon returning to the room, patient was left in bed, with nurse call, tray, and all needs met. Patient needs extra time for transfers due to cues for positioning and safety. PT Short Term Goals Short Term Goals Time Frame: Jun 07, 2021 Roll Left & Right: 5 Sit to lyin Lying to sitting on side of be: 5 Sit to stand: 5 Chair/yos-zh-rbhpb transfer: 5 Toilet transfer: 5 Car transfer: 5 Walk 10 feet: 4 Walk 50 feet with two turns: 4 Walk 150 feet: 3 PT Leacher Goals Leacher Goals PT Group Home Goals Time Frame: Jun 30, 2021 Roll Left & Right (QC): 6 Sit to Lying (QC): 6 Lying-Sitting on Side/Bed(QC): 6 Sit to Stand (QC): 6 Chair/Dsi-xs-Csznj Xfer(QC): 6 Toilet Transfer (QC): 6 Car Transfer (QC): 6 Does the Patient Walk: Yes Walk 10 feet (QC): 5 Walk 50ft with 2 Turns (QC): 5 Walk 150 ft (QC): 4 Walking 10ft on Uneven Surface: 4 1 Step (curb) (QC): 3 4 Steps (QC): 3 12 Steps (QC): 3 Picking up an Object (QC): 4 Does the Pt use WC or Scooter?: No Wheel 50 feet with 2 turns (QC: 88 Wheel 150 feet: 88 PT Plan Problem List Problem List: Activity Tolerance, Functional Strength, Safety, Balance, Gait, Transfer, Bed Mobility, ROM Treatment/Plan Treatment Plan: Continue Plan of Care Treatment Plan: Bed Mobility, Education, Functional Activity Mallika, Functional Strength, Group Therapy, Gait, Safety, Therapeutic Exercise, Transfers Treatment Duration: Jul 01, 2021 Frequency: At least 5 of 7 days/Wk (IRF) Estimated Hrs Per Day: 1.5 hours per day Patient and/or Family Agrees t: Yes Safety Risks/Education Patient Education: Transfer Techniques, Reviewed Precautions, Correct Positioning, Safety Issues Teaching Recipient: Patient Teaching Methods: Discussion Response to Teaching: Verbalize Understanding, Reinforcement Needed Time/GCodes Time In: 1330 Time Out: 1400 Total Billed Treatment Time: 30 Total Billed Treatment 1 visit EX 10' FA 20' CHARLEE VELASCO PT May 29, 2021 14:27
[2021-05-29] MEDS: ENOXAPARIN 40 MG/0.4 ML (LOVENOX) SYR SC SCH (17:50)
[2021-05-29 20:00] VITALS: BP 95/61
[2021-05-30] VITALS (11 sets, daily range): BP systolic 84–113; BP diastolic 54–72
--- NOTE | 2021-05-30 05:38 | PM&R Progress Note ---
Subjective HPI/CC On Admission Date Seen by Provider: May 30, 2021 Subjective/Events-last exam 05/29/21: Pt is doing pretty well Will have a cystoscopy tomorrow by Dr. Lomeli I predict neurogenic bladder likely will require mendez catheter and suprapubic catheter ultimately Had a large bowel movement on 05/27/21 Pain is controlled 05/28/2021: Patient doing very well Tolerating antibiotic change Worried about his UTI I reassured him 05/27/21: Patient doing well Mendez cath will be placed and remain in Complete retention noted Seems like he has neurogenic bladder and did not address this for a long time Enterococcus noted and will DC Vanc and start Amoxil to complete treatment Very flat affect is chronic 05/26/2021: Pt is doing pretty well UTI diagnosed is enterococcus so we will add Vancomycin Patient reports he does have some retention at home and will Enterococcus UTI I think he has had struggles with this before Will also add Diflucan for yeast Overall doing very well with pain now 05/25/2021: Patient doing really well Settling in nicely Discontinue Accu-Cheks since he only checks his sugar twice weekly Straight cath required due to urinary retention Send off lab for UA due to cloudiness Pain is controlled on hydrocodone Objective Exam Vital Signs Vital Signs Date Time Temp Pulse Resp B/P (MAP) Pulse Ox O2 Delivery O2 Flow Rate FiO2 05/30/21 10:55 131 05/30/21 10:11 113/67 (82) 05/30/21 08:29 18 94 Nasal Cannula 2.00 05/30/21 08:25 37.0 Capillary Refill : General Appearance: No Apparent Distress, WD/WN, Chronically ill HEENT: PERRL/EOMI, Normal ENT Inspection, Pharynx Normal Neck: Full Range of Motion, Normal Inspection, Non Tender, Supple, Carotid Bruit Respiratory: Chest Non Tender, Lungs Clear, Normal Breath Sounds, No Accessory Muscle Use, No Respiratory Distress Cardiovascular: Regular Rate, Rhythm, No Edema, No Gallop, No JVD, No Murmur, Normal Peripheral Pulses Gastrointestinal: Normal Bowel Sounds, No Organomegaly, No Pulsatile Mass, Non Tender, Soft Back: Normal Inspection, No CVA Tenderness, No Vertebral Tenderness Extremity: Normal Capillary Refill, Normal Inspection, Normal Range of Motion (Except right leg in bed), Non Tender, No Calf Tenderness, No Pedal Edema Neurologic/Psychiatric: Alert, Oriented x3, No Motor/Sensory Deficits, Normal Mood/Affect, Abnormal Gait, Motor Weakness (Generalized) Skin: Normal Color, Warm/Dry Lymphatic: No Adenopathy Results/Procedures Lab Patient resulted labs reviewed. FIM Transfers Therapy Code Descriptions/Definitions Functional [place] Measure: 0=Not Assessed/NA 4=Minimal Assistance 1=Total Assistance 5=Supervision or Setup 2=Maximal Assistance 6=Modified [place] 3=Moderate Assistance 7=Complete IndependenceSCALE: Activities may be completed with or without assistive devices. 1-Avnlxazzkm-auckflr completes the activity by him/herself with no assistance from a helper. 5-Set-up or Clean-up Assistance-helper sets up or cleans up; patient completes activity. [place] assists only prior to or following the activity. 4-Supervision or Touching Assistance-helper provides verbal cues and/or touching/steadying and/or contact guard assistance as patient completes activity. Assistance may be provided throughout the activity or intermittently. 3-Partial/Moderate Assistance-helper does LESS THAN HALF the effort. [place] lifts, holds or supports trunk or limbs, but provides less than half the effort. 2-Substantial/Maximal Assistance-helper does MORE THAN HALF the effort. [place] lifts or holds trunk or limbs and provides more than half the effort. 3-Wvdborlfp-mzxqca does ALL the effort. Patient does none of the effort to complete the activity. Or, the assistance of 2 or more helpers is required for the patient to complete the activity. If activity was not attempted, code reason: 7-Patient Refused. 9-Not Applicable-not attempted and the patient did not perform the activity before the current illness, exacerbation or injury. 10-Not Attempted due to Environmental Limitations-(lack of equipment, weather restraints, etc.). 88-Not Attempted due to Medical Conditions or Safety Concerns. Roll Left to Right (QC): 6 Sit to Lying (QC): 6 Sit to Stand (QC): 3 Chair/Lze-me-Yhpjm Xfer(QC): 3 Car Transfer (QC): 4 Gait Training Does the Patient Walk?: No and Walking Goal IS indicated Walk 10 feet (QC): 3 Walk 50 ft with 2 Turns(QC): 88 Walk 150 ft (QC): 88 Walking 10ft/uneven surface-QC: 88 Gait Persons Needed: 2 Gait Assistive Device: Parallel Bars Wheelchair Training Does the Pt Use a Wheelchair?: Yes Distance: 100 Wheel 50 ft with 2 turns (QC): 4 Wheel 150 ft (QC): 4 Type of Wheelchair: Manual Stair Training #of Steps: 0 1 Step (curb) (QC): 88 4 Steps (QC): 88 12 Steps (QC): 88 Balance Picking up an Object (QC): 88 ADL-Treatment Eating (QC): 6 Oral Hygiene (QC): 6 Shower/Bathe Self (QC): 3 Upper Body Dressing (QC): 5 Lower Body Dressing (QC): 2 On/Off Footwear (QC): 1 Toileting Hygiene (QC): 1 (folety catheter) Toilet Transfer (QC): 3 Assessment/Plan Assessment and Plan Assess & Plan/Chief Complaint Assessment: R distal fibular fracture NSTEMI, s/p cardioversion on 05/19 Ventricular tachycardia Cardiogenic shock, resolved T2DM Arrhythmogenic Right Ventricular Dysplasia NEVAEH, resolved Cerebral palsy history BPH DVT risk Urinary retention Chronic Constipation UTI Enterococcus placed on Vanco empirically 05/26/2021 then changed to Amoxil after sensitivities back Plan: Aggressive rehab Urinary retention management Appreciate cardiology 05/25/2021: Await urine culture Aggressive rehab Pain control 05/26/2021: Vancomycin Supportive care 05/27/21: DC Vanc Amoxil Mendez cath 05/28/2021: Amoxil Mendez cath Urology 05/29/21: Cysto tomorrow Appreciate Dr Lomeli (1) Right fibular fracture Status: Acute (2) Ventricular tachycardia Status: Acute (3) Cardiogenic shock Status: Acute (4) Arrhythmogenic right ventricular dysplasia Status: Acute (5) Primary hypertension (6) Mixed hyperlipidemia (7) Cerebral palsy VALERIY POTTS DO May 30, 2021 05:38
[2021-05-30] MEDS: ACETAMINOPHEN 325 MG TABLET PO PRN (07:35)
[2021-05-30] MEDS: SOTALOL 80 MG (BETAPACE) TAB PO SCH (08:23)
[2021-05-30] MEDS: MEXILETINE 150 MG (MEXITIL) CAPSULE PO SCH (08:25)
[2021-05-30] MEDS: CATHETER FLUSH 10 ML SYR IVP SCH ×2 (08:25→08:26)
[2021-05-30] MEDS: TAMSULOSIN 0.4 MG (FLOMAX) CAP PO SCH (08:44)
[2021-05-30] MEDS: DOCUSATE SODIUM 100 MG (COLACE) CAP PO SCH (08:44)
[2021-05-30] MEDS: AMOXICILLIN 500 MG (POLYMOX) CAP PO SCH ×2 (08:44→12:36)
[2021-05-30] MEDS: ASPIRIN E.C. 81 MG (ECOTRIN) TAB PO SCH (08:45)
[2021-05-30] MEDS: fluCOnazole (DIFLUCAN) 100 MG TAB PO SCH (08:45)
[2021-05-30] MEDS: SENNA W/DOCUSATE (SENOKOT S) TABLET PO SCH (08:45)
[2021-05-30] MEDS: polyethylene glycoL POWDER 17 GM (MIRALAX) PACK PO SCH (09:18)
[2021-05-30] MEDS ORDERED: NS IV 500 ML 500 ML IV SCH ×2 (10:30)
--- NOTE | 2021-05-30 10:53 | Physical Therapy Daily Note ---
PT Daily Note-Current Subjective Patient was recieving an IV implant upon entering due to low BP. Patient exhibited a high HR and low O2 sats upon entering, but was increased to 90% with recovery and deep breathing prior to treatment. Patient was compliant for treatment. Prior to tx BP was 82/53, taken again after sitting and it was 113/67, 90 bpm but went up to 134 bpm. Will be co-treating with OT due to poor patient mobility, strength, endurance, recent BP and cardiac issues, coordinate UE and LE during activity, safety and reduce risk of falls. Pain Location: No Pain Reported Mental Status Patient Orientation: Person, Place, Situation Attachments: Oxygen Transfers SCALE: Activities may be completed with or without assistive devices. 8-Lsjunykqhi-vntewve completes the activity by him/herself with no assistance from a helper. 5-Set-up or Clean-up Assistance-helper sets up or cleans up; patient completes activity. [place] assists only prior to or following the activity. 4-Supervision or Touching Assistance-helper provides verbal cues and/or touching/steadying and/or contact guard assistance as patient completes activity. Assistance may be provided throughout the activity or intermittently. 3-Partial/Moderate Assistance-helper does LESS THAN HALF the effort. [place] lifts, holds or supports trunk or limbs, but provides less than half the effort. 2-Substantial/Maximal Assistance-helper does MORE THAN HALF the effort. [place] lifts or holds trunk or limbs and provides more than half the effort. 7-Ebtkfvdie-mwuoaa does ALL the effort. Patient does none of the effort to complete the activity. Or, the assistance of 2 or more helpers is required for the patient to complete the activity. If activity was not attempted, code reason: 7-Patient Refused. 9-Not Applicable-not attempted and the patient did not perform the activity before the current illness, exacerbation or injury. 10-Not Attempted due to Environmental Limitations-(lack of equipment, weather restraints, etc.). 88-Not Attempted due to Medical Conditions or Safety Concerns. Lying to Sitting/Side of Bed(Q: 2 Sit to Stand (QC): 2 Chair/Wkr-er-Toczt Xfer(QC): 2 Weight Bearing Right Lower Extremity: Right Non Weight Bearing Left Lower Extremity: Left Full Weight Bearing Patient 3 weeks NWB right LE from admit on 05-20-21; Reassess 06-10-21 Gait Training Does the Patient Walk?: No and Walking Goal IS indicated Wheelchair Training Does the Pt Use a Wheelchair?: Yes Wheel 50 ft with 2 turns (QC): 4 Wheel 150 ft (QC): 4 Type of Wheelchair: Manual 300ft total Treatments Patient exhibits slow wheel chair mobility, but is able to navigate around the hallway and through doors, and requires multiple recovery periods. Patient still has trouble navigating wheelchair in room. He still demonstrates LE weakness requiring mod-maxA with all transfers. Patient still has trouble maintaining NWB on R leg, and requires multiple verbal cues. Patient was left in bed with call light, tray and all needs met. Assessment Current Status: Fair Progress decreased intensity due to medical issues PT Short Term Goals Short Term Goals Time Frame: Jun 07, 2021 Roll Left & Right: 5 Sit to lyin Lying to sitting on side of be: 5 Sit to stand: 5 Chair/tzn-fp-wydjk transfer: 5 Toilet transfer: 5 Car transfer: 5 Walk 10 feet: 4 Walk 50 feet with two turns: 4 Walk 150 feet: 3 PT Care Home Goals Care Home Goals PT Coal Weigher Goals Time Frame: Jun 30, 2021 Roll Left & Right (QC): 6 Sit to Lying (QC): 6 Lying-Sitting on Side/Bed(QC): 6 Sit to Stand (QC): 6 Chair/Qvl-td-Kldfe Xfer(QC): 6 Toilet Transfer (QC): 6 Car Transfer (QC): 6 Does the Patient Walk: Yes Walk 10 feet (QC): 5 Walk 50ft with 2 Turns (QC): 5 Walk 150 ft (QC): 4 Walking 10ft on Uneven Surface: 4 1 Step (curb) (QC): 3 4 Steps (QC): 3 12 Steps (QC): 3 Picking up an Object (QC): 4 Does the Pt use WC or Scooter?: No Wheel 50 feet with 2 turns (QC: 88 Wheel 150 feet: 88 PT Plan Problem List Problem List: Activity Tolerance, Functional Strength, Safety, Balance, Gait, Transfer, Bed Mobility, ROM Treatment/Plan Treatment Plan: Continue Plan of Care Treatment Plan: Bed Mobility, Education, Functional Activity Mallika, Functional Strength, Group Therapy, Gait, Safety, Therapeutic Exercise, Transfers Treatment Duration: Jul 01, 2021 Frequency: At least 5 of 7 days/Wk (IRF) Estimated Hrs Per Day: 1.5 hours per day Patient and/or Family Agrees t: Yes Safety Risks/Education Patient Education: Transfer Techniques, Reviewed Precautions, Correct Positioning, W/C Management, Safety Issues Teaching Recipient: Patient Response to Teaching: Reinforcement Needed Time/GCodes Time In: 1000 Time Out: 1100 Total Billed Treatment Time: 60 Total Billed Treatment 1 visit FA 60min CHARLEE VELASCO PT May 30, 2021 10:53
--- NOTE | 2021-05-30 10:56 | Cardiology Progress Note ---
Progress Note-Cardiology Events since last exam Date Seen by Provider: May 30, 2021 Time Seen by Provider: 10:55 Events since last exam I am following him due to ventricular tachycardia. He remains on the inpatient rehabilitation unit. Last evening he did have some palpitations. The nurses no glenis that his heart rates were varying from 60-100 bpm. He was also having low blood pressures. He denies chest discomfort, dyspnea at rest, syncope, or ankle edema. He was placed back on telemetry this morning. He does not believe he had any discharges from his defibrillator. Certain portions of this document may have been dictated utilizing voice recognition technology. Inherent to this technology, typographical and grammatical errors may exist. As much as I am diligent to identify and correct these mistakes, some errors may remain in the document. Vitals Last set of Vitals Signs Vital Signs 05/30/21 05/30/21 05/30/21 05/30/21 08:25 08:29 10:11 10:55 Temp 37.0 Pulse 131 Resp 18 B/P (MAP) 113/67 (82) Pulse Ox 94 O2 Delivery Nasal Cannula O2 Flow Rate 2.00 Exam Vital Signs Vital Signs Date Time Temp Pulse Resp B/P (MAP) Pulse Ox O2 Delivery O2 Flow Rate FiO2 05/30/21 10:55 131 05/30/21 10:11 113/67 (82) 05/30/21 08:29 18 94 Nasal Cannula 2.00 05/30/21 08:25 37.0 Physical Exam General: Alert. No acute distress. Eye: No xanthelasma. HENT: Normocephalic. Neck: Jugular venous pressure does not appear elevated. Respiratory: Lungs are clear to auscultation. Respirations are non-labored. Breath sounds are equal. Symmetrical chest wall expansion. Cardiovascular: Normal rate. Regular rhythm. No murmur. No gallop. No edema. Gastrointestinal: Soft. Normal bowel sounds. Skin: Warm. Dry. Neurologic: Alert and oriented to person, place, time. Cranial nerves 3-11 grossly intact. Psychiatric: Cooperative. Appropriate mood & affect. Diagnosis/Problems Diagnosis/Problems (1) Ventricular tachycardia Status: Acute Assessment & Plan: This is due to arrhythmogenic right ventricular dysplasia. He had been taking sotalol at home and is now on mexiletine due to recurrent ventricular tachycardia that occurred at the time of this admission. Now he is having some high ventricular rates. I did an interrogation of the defibrillator and I am not sure if the high ventricular rates are due to an atrial arrhythmia or a primary ventricular arrhythmia. I will have [employer] come in to a device check. He should continue on sotalol and mexiletine. Once he goes home, I will arrange for an outpatient electrophysiology evaluation for consideration of ablation. (2) Arrhythmogenic right ventricular dysplasia Status: Acute Assessment & Plan: As above. (3) Primary hypertension Assessment & Plan: When he came to the hospital during the acute care visit, he was hypotensive. He then became hypertensive and his antihypertensive medication was resumed. Now he is again having some hypotension. Some of this may be due to poor oral intake. His amlodipine and lisinopril are currently on hold. I gave him 1/2 L normal saline bolus. We will hold his antihypertensive medication for the time being. (4) Mixed hyperlipidemia Assessment & Plan: Continue statin medication. JOSEFINA JUNE JR, MD May 30, 2021 10:56
--- NOTE | 2021-05-30 11:02 | Occupational Ther Daily Note ---
OT Current Status-Daily Note Subjective Pt initially on hold in early am secondary to low BP and increased HR. RN agreeable for treatment later in am. Co-treat with PT for part of session (1000- 1050) due to need of 2 skilled clinicians to progress indep and safety with adls and mobility. Appearance Pt returned to supine in bed, all needs within reach. RN and physical therapy still in room at OT departure. Mental Status/Objective Attachments: IV, Oxygen, Telemetry ADL-Treatment Therapy Code Descriptions/Definitions Functional [place] Measure: 0=Not Assessed/NA 4=Minimal Assistance 1=Total Assistance 5=Supervision or Setup 2=Maximal Assistance 6=Modified [place] 3=Moderate Assistance 7=Complete IndependenceSCALE: Activities may be completed with or without assistive devices. 6-Vtwurbbftv-wswzacy completes the activity by him/herself with no assistance from a helper. 5-Set-up or Clean-up Assistance-helper sets up or cleans up; patient completes activity. [place] assists only prior to or following the activity. 4-Supervision or Touching Assistance-helper provides verbal cues and/or touching/steadying and/or contact guard assistance as patient completes activity. Assistance may be provided throughout the activity or intermittently. 3-Partial/Moderate Assistance-helper does LESS THAN HALF the effort. [place] lifts, holds or supports trunk or limbs, but provides less than half the effort. 2-Substantial/Maximal Assistance-helper does MORE THAN HALF the effort. [place] lifts or holds trunk or limbs and provides more than half the effort. 9-Vghpfbypq-wcbjlg does ALL the effort. Patient does none of the effort to complete the activity. Or, the assistance of 2 or more helpers is required for the patient to complete the activity. If activity was not attempted, code reason: 7-Patient Refused. 9-Not Applicable-not attempted and the patient did not perform the activity before the current illness, exacerbation or injury. 10-Not Attempted due to Environmental Limitations-(lack of equipment, weather restraints, etc.). 88-Not Attempted due to Medical Conditions or Safety Concerns. Oral Hygiene (QC): 5 Lower Body Dressing (QC): 2 On/Off Footwear: 2 Pt supine in bed at OT arrival. BP: 106/58, oxygen 84-90%, HR between 120-130's at rest. O2 unable to recover with rest and cues for PLB. 2L NC donned, pt quickly recovers to 92%. Mod a to sit EOB, requires extra time and cues for positioning of feet on floor for improved stability. Intermittent min a needed for sitting balance as pt with posterior lean. Pt often verbalizes fatigue and difficulty holding self in midline. BP in sittin/59, O2: 91%, HR in 130's. Cues for relaxation. Pt requesting to lay back down after minimal activity.Grooming tasks performed at bed level with set up. After ~5 minutes rest at supine, pt returned to sitting EOB. BP checked again, 113/67, HR 134, O2, 90%. Intermittent min a and unilateral UE support needed for sitting balance as pt threaded feet into shorts. Assist needed to thread L foot due to poor flexibility.Sit<>stand: mod a. Pt continues to have poor compliance to NWB on R foot. Requires min-mod a for balance and assist to manage clothing up over hips. Attempt at performing stand pivot with walker, yet pt freezes senior care through transfer, unable to pivot L foot. He was returned to sitting and then completed squat pivot towards L with min a. Pt propelled w/c throughout unit, extra time required. Poor recall of w/c management, needing cues for brakes. Several short sitting breaks needed during w/c mobility. Education OT Patient Education: Correct positioning, Energy conservation, Modified ADL techniques, Progress toward Goal/Update tx plan, Purpose of tx/functional activities, Reviewed precautions, Safety issues, Transfer techniques, W/C management Teaching Recipient: Patient Teaching Methods: Demonstration, Discussion Response to Teaching: Verbalize Understanding, Reinforcement Needed OT Short Term Goals Short Term Goals Time Frame: Jun 07, 2021 Toileting hygiene: 3 Shower/bathe self: 5 Lower body dressin Putting on/taking off footwear: 4 OT Halfway Goals Catering Barista Goals Time Frame: Jun 30, 2021 Eating (QC): 6 Oral Hygiene (QC): 6 Toileting Hygiene (QC): 6 Shower/Bathe Self (QC): 6 Upper Body Dressing (QC): 6 Lower Body Dressing (QC): 6 On/Off Footwear (QC): 6 Additional Goals: 1-Demonstrate ADL Tasks, 2-Verbalize Understanding, 3- ImproveStrength/[place] 1=Demonstrate adherence to instructed precautions during ADL tasks. 2=Patient will verbalize/demonstrate understanding of assistive devices/modifications for ADL. 3=Patient will improve strength/tolerance for activity to enable patient to perform ADL's. OT Education/Plan Problem List/Assessment Assessment: Decreased Activ Tolerance, Decreased Safety Aware, Decreased UE Strength, Impaired Bed Mobility, Impaired Cognition, Impaired Funct Balance, Impaired I ADL's, Impaired Self-Care Skills Discharge Recommendations Plan/Recommendations: Continue POC Treatment Plan/Plan of Care Treatment,Training & Education: Yes Patient would benefit from OT for education, treatment and training to promote independence in ADL's, mobility, safety and/or upper extremity function for ADL's. Plan of Care: ADL Retraining, Functional Mobility, Group Exercise/Act as Ind, UE Funct Exercise/Act Treatment Duration: Jun 30, 2021 Frequency: At least 5 of 7 days/Wk (IRF) Estimated Hrs Per Day: 1.5 hours per day Agreement: Yes Rehab Potential: Fair Time/GCodes Start Time: 09:20 Stop Time: 10:50 Total Time Billed (hr/min): 90 Billed Treatment Time 1 visit ADL x3 (40 min) FA x3 (50 min) Yuridia Spencer OT May 30, 2021 11:02
--- NOTE | 2021-05-30 13:01 | Physical Therapy Daily Note ---
PT Daily Note-Current Subjective Patient was in bed and compliant to start treatment Pain Numeric Pain Scale: 0-No Pain Mental Status Patient Orientation: Person, Place Attachments: Oxygen Telemetry Transfers SCALE: Activities may be completed with or without assistive devices. 4-Vnubymoxjy-gxykmyy completes the activity by him/herself with no assistance from a helper. 5-Set-up or Clean-up Assistance-helper sets up or cleans up; patient completes activity. [place] assists only prior to or following the activity. 4-Supervision or Touching Assistance-helper provides verbal cues and/or to uching/steadying and/or contact guard assistance as patient completes activity. Assistance may be provided throughout the activity or intermittently. 3-Partial/Moderate Assistance-helper does LESS THAN HALF the effort. [place] lifts, holds or supports trunk or limbs, but provides less than half the effort. 2-Substantial/Maximal Assistance-helper does MORE THAN HALF the effort. [place] lifts or holds trunk or limbs and provides more than half the effort. 2-Ghfrbggki-pfmeca does ALL the effort. Patient does none of the effort to complete the activity. Or, the assistance of 2 or more helpers is required for the patient to complete the activity. If activity was not attempted, code reason: 7-Patient Refused. 9-Not Applicable-not attempted and the patient did not perform the activity before the current illness, exacerbation or injury. 10-Not Attempted due to Environmental Limitations-(lack of equipment, weather restraints, etc.). 88-Not Attempted due to Medical Conditions or Safety Concerns. Sit to Lying (QC): 3 Lying to Sitting/Side of Bed(Q: 3 Sit to Stand (QC): 2 Weight Bearing Right Lower Extremity: Right Non Weight Bearing Left Lower Extremity: Left Full Weight Bearing Patient 3 weeks NWB right LE from admit on 05-20-21; Reassess 06-10-21 Gait Training Does the Patient Walk?: No and Walking Goal IS indicated Wheelchair Training Does the Pt Use a Wheelchair?: Yes Wheel 50 ft with 2 turns (QC): 3 Type of Wheelchair: N/A 50'x2 Exercises Seated Therapy Exercises: Ankle pumps, Long arc quads, Hip abd/add Seated Reps: 10 Standing: Hip Abduction (10reps), Marching (10 reps), Sit to Stand (2 x 30seconds) Treatments LE strengthening, standing Assessment Current Status: Fair Progress Patient still lacks strength in L LE as he is unable to maintain a unilateral stance with UE support in parallel bars for more than 30sec. Patient was also fatiguing after the LE seated exercises and required multiple rest breaks. Patients telemetry was checked at the end of session. Patient was noted to be in Ventricular Tachycardia (tested by a healthcare worker during therapy). Patient did not complain of any dizziness, syncope, or other sign's or symptoms consistent with Ventricular Tachycardia. Patient was immediately returned to room, with Nursing informed. PT Short Term Goals Short Term Goals Time Frame: Jun 07, 2021 Roll Left & Right: 5 Sit to lyin Lying to sitting on side of be: 5 Sit to stand: 5 Chair/rdg-gl-wkbfd transfer: 5 Toilet transfer: 5 Car transfer: 5 Walk 10 feet: 4 Walk 50 feet with two turns: 4 Walk 150 feet: 3 PT Nursing Home Goals Nursing Home Goals PT Allergy Physician Goals Time Frame: Jun 30, 2021 Roll Left & Right (QC): 6 Sit to Lying (QC): 6 Lying-Sitting on Side/Bed(QC): 6 Sit to Stand (QC): 6 Chair/Tpd-sj-Acyvh Xfer(QC): 6 Toilet Transfer (QC): 6 Car Transfer (QC): 6 Does the Patient Walk: Yes Walk 10 feet (QC): 5 Walk 50ft with 2 Turns (QC): 5 Walk 150 ft (QC): 4 Walking 10ft on Uneven Surface: 4 1 Step (curb) (QC): 3 4 Steps (QC): 3 12 Steps (QC): 3 Picking up an Object (QC): 4 Does the Pt use WC or Scooter?: No Wheel 50 feet with 2 turns (QC: 88 Wheel 150 feet: 88 PT Plan Problem List Problem List: Activity Tolerance, Functional Strength, Safety, Balance, Gait, Transfer, Bed Mobility, ROM Treatment/Plan Treatment Plan: Continue Plan of Care Treatment Plan: Bed Mobility, Education, Functional Activity [place], Functional Strength, Group Therapy, Gait, Safety, Therapeutic Exercise, Transfers Treatment Duration: Jul 01, 2021 Frequency: At least 5 of 7 days/Wk (IRF) Estimated Hrs Per Day: 1.5 hours per day Patient and/or Family Agrees t: Yes Safety Risks/Education Patient Education: Transfer Techniques, Correct Positioning, W/C Management, Safety Issues Teaching Recipient: Patient Teaching Methods: Demonstration, Discussion Response to Teaching: Verbalize Understanding, Reinforcement Needed Time/GCodes Time In: 1230 Time Out: 1300 Total Billed Treatment Time: 30 Total Billed Treatment 1 visit EX 30min CHARLEE VELASCO PT May 30, 2021 13:01
--- NOTE | 2021-05-30 13:13 | Discharge Summary ---
Diagnosis/Chief Complaint Date of Admission May 24, 2021 at 12:50 Date of Discharge Discharge Date: May 30, 2021 Discharge Diagnosis Assessment: R distal fibular fracture NSTEMI, s/p cardioversion on 05/19 Ventricular tachycardia recurrent with hypotension prompting transfer to ICU on 05/30/2021 on lidocaine drip and transferred to [facility] [place] for ablation Cardiogenic shock, resolved T2DM Arrhythmogenic Right Ventricular Dysplasia NEVAEH, resolved Cerebral palsy history BPH DVT risk Urinary retention Chronic Constipation UTI Enterococcus placed on Vanco empirically 05/26/2021 then changed to Amoxil after sensitivities back Plan: Aggressive rehab Urinary retention management Appreciate cardiology 05/25/2021: Await urine culture Aggressive rehab Pain control 05/26/2021: Vancomycin Supportive care 05/27/21: DC Vanc Amoxil Duong cath 05/28/2021: Amoxil Duong cath Urology 05/29/21: Cysto tomorrow Appreciate Dr Lomeli (1) Right fibular fracture Status: Acute (2) Ventricular tachycardia Status: Acute (3) Cardiogenic shock Status: Acute (4) Arrhythmogenic right ventricular dysplasia Status: Acute (5) Primary hypertension (6) Mixed hyperlipidemia (7) Cerebral palsy Discharge Summary Discharge Physical Examination Allergies: Uncoded Allergies: UNKNOWN CHOLESTEROL MED. (Allergy, Unknown, 02/12/18) Vitals & I&Os Vital Signs Date Time Temp Pulse Resp B/P (MAP) Pulse Ox O2 Delivery O2 Flow Rate FiO2 05/30/21 13:00 36.4 88 20 103/66 96 Nasal Cannula 2.00 General Appearance: Cooperative Respiratory: Clear to Auscultation Neuro: Normal Speech, Strength at 5/5 X4 Ext Psych/Mental Status: Mental Status NL Hospital Course Was the Problem List Reviewed?: Yes Patient had a lengthy hospital course after an episode of ventricular tachycardia requiring cardiology management and ICU stay and nonsurgical management of fibular fracture. Acute on chronic urinary retention requiring urology consultation and UTI was diagnosed with Enterococcus placed on vancomycin empirically and transition to amoxicillin. Cystoscopy was normal. Patient ultimately had recurrent issue with ventricular tachycardia with hypotension and hypoxia prompting evaluation from cardiology on telemetry and requiring discharge from inpatient rehab to ICU to be placed on a lidocaine drip and then transferred to [facility] for ablation. Hopefully patient will be able to recover and return back to inpatient rehab on Saturday. Labs (last 24 hrs) Laboratory Tests 05/24/21 12:50: Lab Scanned Report Referred Lab Report 05/24/21 16:18: Glucometer 124H 05/24/21 20:48: Glucometer 136H 05/25/21 05:43: White Blood Count 6.4, Red Blood Count 3.70L, Hemoglobin 12.4L, Hematocrit 37L, Mean Corpuscular Volume 100H, Mean Corpuscular Hemoglobin 34, Mean Corpuscular Hemoglobin Concent 34, Red Cell Distribution Width 13.2, Platelet Count 173, Mean Platelet Volume 10.5, Immature Granulocyte % (Auto) 0, Neutrophils (%) (Auto) 68, Lymphocytes (%) (Auto) 18, Monocytes (%) (Auto) 9, Eosinophils (%) (Auto) 4, Basophils (%) (Auto) 1, Neutrophils # (Auto) 4.4, Lymphocytes # (Auto) 1.2, Monocytes # (Auto) 0.6, Eosinophils # (Auto) 0.2, Basophils # (Auto) 0.0, Immature Granulocyte # (Auto) 0.0, Sodium Level 137, Potassium Level 4.3, Chloride Level 104, Carbon Dioxide Level 23, Anion Gap 10, Blood Urea Nitrogen 19H, Creatinine 1.10, Estimat Glomerular Filtration Rate 70, BUN/Creatinine Ratio 17, Glucose Level 122H, Calcium Level 9.2, Corrected Calcium 9.8, Total Bilirubin 0.9, Aspartate Amino Transf (AST/SGOT) 30, Alanine Aminotransferase (ALT/SGPT) 40, Alkaline Phosphatase 95, Total Protein 7.2, Albumin 3.3 05/25/21 06:10: Glucometer 109 05/25/21 10:35: Glucometer 164H 05/25/21 16:00: Urine Color YELLOW, Urine Clarity CLEAR, Urine pH 6.0, Urine Specific [place] 1.025H, Urine Protein 1+H, Urine Glucose (UA) NEGATIVE, Urine Ketones NEGATIVE, Urine Nitrite NEGATIVE, Urine Bilirubin NEGATIVE, Urine Urobilinogen 1.0, Urine Leukocyte Esterase 1+H, Urine RBC (Auto) 3+H, Urine RBC 5-10H, Urine WBC 10-25H, Urine Squamous Epithelial Cells NONE, Urine Renal Epithelial Cells NONE, Urine Crystals NONE, Urine Bacteria LARGEH, Urine Casts NONE, Urine Mucus NEGATIVE, Urine Yeast MODERATEH, Urine Culture Indicated YES 05/29/21 05:45: White Blood Count 8.7, Red Blood Count 3.42L, Hemoglobin 11.5L, Hematocrit 34L, Mean Corpuscular Volume 100H, Mean Corpuscular Hemoglobin 34, Mean Corpuscular Hemoglobin Concent 34, Red Cell Distribution Width 13.3, Platelet Count 190, M jacob Platelet Volume 10.1, Immature Granulocyte % (Auto) 0, Neutrophils (%) (Auto) 77H, Lymphocytes (%) (Auto) 12, Monocytes (%) (Auto) 8, Eosinophils (%) (Auto) 2, Basophils (%) (Auto) 0, Neutrophils # (Auto) 6.7, Lymphocytes # (Auto) 1.1, Monocytes # (Auto) 0.7, Eosinophils # (Auto) 0.2, Basophils # (Auto) 0.0, Immature Granulocyte # (Auto) 0.0, Sodium Level 134L, Potassium Level 4.1, Chloride Level 103, Carbon Dioxide Level 20L, Anion Gap 11, Blood Urea Nitrogen 17, Creatinine 0.97, Estimat Glomerular Filtration Rate 81, BUN/Creatinine Ratio 18, Glucose Level 119H, Calcium Level 8.6, Corrected Calcium 9.3, Total Bilirubin 0.7, Aspartate Amino Transf (AST/SGOT) 34, Alanine Aminotransferase (ALT/SGPT) 34, Alkaline Phosphatase 92, Total Protein 7.0, Albumin 3.1L Microbiology 05/25/21 Urine Culture - Final, Complete Enterococcus faecalis Pending Labs Microbiology Date/Time Source Procedure Growth Status 05/25/21 16:00 Urine Clean Catch Urine Culture - Final Enterococcus faecalis Complete Laboratory Tests 05/24/21 12:50: Lab Scanned Report Referred Lab Report 05/24/21 16:18: Glucometer 124 05/24/21 20:48: Glucometer 136 05/25/21 05:43: White Blood Count 6.4, Red Blood Count 3.70, Hemoglobin 12.4, Hematocrit 37, Mean Corpuscular Volume 100, Mean Corpuscular Hemoglobin 34, Mean Corpuscular Hemoglobin Concent 34, Red Cell Distribution Width 13.2, Platelet Count 173, Mean Platelet Volume 10.5, Immature Granulocyte % (Auto) 0, Neutrophils (%) (Auto) 68, Lymphocytes (%) (Auto) 18, Monocytes (%) (Auto) 9, Eosinophils (%) (Auto) 4, Basophils (%) (Auto) 1, Neutrophils # (Auto) 4.4, Lymphocytes # (Auto) 1.2, Monocytes # (Auto) 0.6, Eosinophils # (Auto) 0.2, Basophils # (Auto) 0.0, Immature Granulocyte # (Auto) 0.0, Sodium Level 137, Potassium Level 4.3, Chloride Level 104, Carbon Dioxide Level 23, Anion Gap 10, Blood Urea Nitrogen 19, Creatinine 1.10, Estimat Glomerular Filtration Rate 70, BUN/Creatinine Ratio 17, Glucose Level 122, Calcium Level 9.2, Corrected Calcium 9.8, Total Bilirubin 0.9, Aspartate Amino Transf (AST/SGOT) 30, Alanine Aminotransferase (ALT/SGPT) 40, Alkaline Phosphatase 95, Total Protein 7.2, Albumin 3.3 05/25/21 06:10: Glucometer 109 05/25/21 10:35: Glucometer 164 05/25/21 16:00: Urine Color YELLOW, Urine Clarity CLEAR, Urine pH 6.0, Urine Specific [place] 1.025, Urine Protein 1+, Urine Glucose (UA) NEGATIVE, Urine Ketones NEGATIVE, Urine Nitrite NEGATIVE, Urine Bilirubin NEGATIVE, Urine Urobilinogen 1.0, Urine Leukocyte Esterase 1+, Urine RBC (Auto) 3+, Urine RBC 5-10, Urine WBC 10-25, Urine Squamous Epithelial Cells NONE, Urine Renal Epithelial Cells NONE, Urine Crystals NONE, Urine Bacteria LARGE, Urine Casts NONE, Urine Mucus NEGATIVE, Urine Yeast MODERATE, Urine Culture Indicated YES 05/29/21 05:45: White Blood Count 8.7, Red Blood Count 3.42, Hemoglobin 11.5, Hematocrit 34, Mean Corpuscular Volume 100, Mean Corpuscular Hemoglobin 34, Mean Corpuscular Hemoglobin Concent 34, Red Cell Distribution Width 13.3, Platelet Count 190, Mean Platelet Volume 10.1, Immature Granulocyte % (Auto) 0, Neutrophils (%) (Auto) 77, Lymphocytes (%) (Auto) 12, Monocytes (%) (Auto) 8, Eosinophils (%) (Auto) 2, Basophils (%) (Auto) 0, Neutrophils # (Auto) 6.7, Lymphocytes # (Auto) 1.1, Monocytes # (Auto) 0.7, Eosinophils # (Auto) 0.2, Basophils # (Auto) 0.0, Immature Granulocyte # (Auto) 0.0, Sodium Level 134, Potassium Level 4.1, Chloride Level 103, Carbon Dioxide Level 20, Anion Gap 11, Blood Urea Nitrogen 17, Creatinine 0.97, Estimat Glomerular Filtration Rate 81, BUN/Creatinine Ratio 18, Glucose Level 119, Calcium Level 8.6, Corrected Calcium 9.3, Total Bilirubin 0.7, Aspartate Amino Transf (AST/SGOT) 34, Alanine Aminotransferase (ALT/SGPT) 34, Alkaline Phosphatase 92, Total Protein 7.0, Albumin 3.1 Discharge Home Medications: Active Scripts Active Reported Flomax (Tamsulosin HCl) 0.4 Mg Cap 0.4 Mg PO DAILY Sotalol (Sotalol HCl) 80 Mg Tablet 40 Mg PO BID TAKES OF 80MG TAB Multivitamins with Minerals (Multivitamin with Minerals) 1 Each Tablet 1 Each PO DAILY Eye Health Adult 50+ Softgel (Antiox #11/Om3/Dha/Epa/Lut/[place]) 1 Each Capsule 1 Each PO BID Lisinopril 40 Mg Tablet 40 Mg PO DAILY Hydrochlorothiazide 25 Mg Tablet 12.5 Mg PO TAKES OF A 25MG TAB Cyclobenzaprine HCl 10 Mg Tablet 10 Mg PO HS PRN Vitamin B-12 (Cyanocobalamin (Vitamin B-12)) 1,000 Mcg Tablet 1,000 Mcg PO DAILY Atorvastatin Calcium 80 Mg Tablet 40 Mg PO HS TAKES OF A 40MG TAB Aspirin EC (Aspirin) 81 Mg Tablet.dr 81 Mg PO DAILY Amlodipine Besylate 5 Mg Tablet 2.5 Mg PO 1200 TAKES OF A 5MG TAB Allopurinol 100 Mg Tablet 100 Mg PO DAILY Proair Hfa (Albuterol Sulfate) 1 Puff Puff 2 Puff IH QID PRN Tylenol Extra Strength (Acetaminophen) 500 Mg Tablet 1,000 Mg PO Q8H PRN Vitamin C (Ascorbate Calcium) 500 Mg Tablet 500 Mg PO DAILY Instructions to patient/family Please see electronic discharge instructions given to patient. Diagnosis/Problems Diagnosis/Problems (1) Right fibular fracture Status: Acute (2) Ventricular tachycardia Status: Acute (3) Cardiogenic shock Status: Acute (4) Arrhythmogenic right ventricular dysplasia Status: Acute (5) Primary hypertension (6) Mixed hyperlipidemia (7) Cerebral palsy VALERIY POTTS DO May 30, 2021 13:13
[2021-05-30] MEDS ORDERED: LIDOCAINE DRIP 500 ML IV SCH (13:15)
[2021-05-30] MEDS ORDERED: LIDOCAINE BOLUS 100 MG/5 ML (IMS) SYR IV ONE (13:15)
--- NOTE | 2021-05-30 14:45 | Therapy Team Discharge Summary ---
Therapy Discharge Summary Discharge Recommendations Date of Discharge Physical Therapy Patient came to rehab with ventricular tachycardia, R distal fibular fx. Upon evaluation patient performed rolling and supine <-> sit with CGA, sit <-> stand and transfers CGA, car transfer CGA, ambulated 15' with a rolling walker with min assist, and propelled a manual WC 100' with setup. Patient has been performing bed mobility and transfer training, balance and endurance training, functional strengthening, gait training, and education. Patient has not met any of his correction goals and has actually been transferred to ICU due to medical complications. Most recently patient was performing supine <-> sit with min assist and sit <-> stand and transfers with max assist. Patient will be discharged from PT at this time. Roll Left to Right (QC): 6 Sit to Lying (QC): 3 Lying to Sitting/Side of Bed(Q: 3 Sit to Stand (QC): 2 Chair/Mwh-du-Ulfgf Xfer(QC): 2 Toilet Transfer (QC): 1 Car Transfer (QC): 4 Does the Patient Walk: No and Walking Goal IS indicated Mode of Locomotion: Walk Anticipated Mode of Locomotion: Walk Walk 10 feet (QC): 3 Walk 50 ft with 2 Turns(QC): 88 Walk 150 ft (QC): 88 Walking 10ft on uneven surface: 88 Distance: 15 Gait Assistive Device: Parallel Bars Does the Pt Use a Wheelchair: Yes Wheelchair Distance: 100 Wheel 50 ft with 2 turns (QC): 3 Wheel 150 ft (QC): 4 Type of Wheelchair: N/A #of Steps: 0 1 Step (curb) (QC): 88 4 Steps (QC): 88 12 Steps (QC): 88 Balance Sitting Static: Normal Balance Sitting Dynamic: Good Balance-Standing Static: Poor Picking up an Object (QC): 88 Occupational Therapy Decreased Activ Tolerance, Decreased Safety Aware, Decreased UE Strength, Impaired Bed Mobility, Impaired Cognition, Impaired Funct Balance, Impaired I ADL's, Impaired Self-Care Skills Eating (QC): 6 Oral Hygiene (QC): 5 Shower/Bathe Self (QC): 3 Upper Body Dressing (QC): 5 Lower Body Dressing (QC): 2 On/Off Footwear (QC): 2 Toileting Hygiene (QC): 1 (folety catheter) PT Bi Developer Goals Bi Developer Goals PT Fpc Goals Time Frame: Jun 30, 2021 Roll Left to Right (QC): 6 Sit to Lying (QC): 6 Lying-Sitting on Side/Bed(QC): 6 Sit to Stand (QC): 6 Chair/Vdi-tr-Dfled Xfer(QC): 6 Car Transfer (QC): 6 Does the Patient Walk: Yes Walk 10 feet (QC): 5 Walk 10ft-Uneven Surface(QC): 4 Walk 50ft with 2 Turns (QC): 5 Walk 150 ft (QC): 4 Does the Pt use WC or Scooter?: No Wheel 50 feet with 2 turns (QC: 88 1 Step (curb) (QC): 3 4 Steps (QC): 3 12 Steps (QC): 3 Picking up an Object (QC): 4 OT Fpc Goals Bi Developer Goals Time Frame: Jun 30, 2021 Eating (QC): 6 Oral Hygiene (QC): 6 Shower/Bathe Self (QC): 6 Upper Body Dressing (QC): 6 Lower Body Dressing (QC): 6 On/Off Footwear (QC): 6 Toileting Hygiene (QC): 6 Toilet/Commode Transfer (QC): 6 Additional Goals: 1-Demonstrate ADL Tasks, 2-Verbalize Understanding, 3- ImproveStrength/[place] 1=Demonstrate adherence to instructed precautions during ADL tasks. 2=Patient will verbalize/demonstrate understanding of assistive devices/modifications for ADL. 3=Patient will improve strength/tolerance for activity to enable patient to perform ADL's. CHARLEE VELASCO PT May 30, 2021 14:45
--- NOTE | 2021-05-31 09:10 | Therapy Team Discharge Summary ---
Therapy Discharge Summary Discharge Recommendations Date of Discharge May 30, 2021 at 13:00 Therapy D/C Recommendations: Jail (TCU/NH) Physical Therapy Roll Left to Right (QC): 6 Sit to Lying (QC): 3 Lying to Sitting/Side of Bed(Q: 3 Sit to Stand (QC): 2 Chair/Ufx-ad-Cokrq Xfer(QC): 2 Toilet Transfer (QC): 4 Car Transfer (QC): 4 Does the Patient Walk: No and Walking Goal IS indicated Mode of Locomotion: Walk Anticipated Mode of Locomotion: Walk Walk 10 feet (QC): 3 Walk 50 ft with 2 Turns(QC): 88 Walk 150 ft (QC): 88 Walking 10ft on uneven surface: 88 Distance: 15 Gait Assistive Device: Parallel Bars Does the Pt Use a Wheelchair: Yes Wheelchair Distance: 100 Wheel 50 ft with 2 turns (QC): 3 Wheel 150 ft (QC): 4 Type of Wheelchair: N/A #of Steps: 0 1 Step (curb) (QC): 88 4 Steps (QC): 88 12 Steps (QC): 88 Balance Sitting Static: Normal Balance Sitting Dynamic: Good Balance-Standing Static: Poor Picking up an Object (QC): 88 Occupational Therapy Patient came to rehab with ventricular tachycardia and a R distal fibular fx. Upon evaluation, pt was indep with eating, set up for oral care and upper body dressing, sba for bathing, mod a for footwear, and dependent for toileting and lower body dressing. During his rehab stay, OT focused on safety, adherence to NWB precautions during adls/transfers, sequencing, cognition/memory, balance, endurance, and UE strengthening needed for improved indep and safety with adls and transfers. Patient did not meet all of his prison goals due to medical complications and being transferred to the ICU. Patient will be discharged from OT at this time. Decreased Activ Tolerance, Decreased Safety Aware, Decreased UE Strength, Impa ired Bed Mobility, Impaired Cognition, Impaired Funct Balance, Impaired I ADL's, Impaired Self-Care Skills Eating (QC): 6 Oral Hygiene (QC): 5 Shower/Bathe Self (QC): 3 Upper Body Dressing (QC): 5 Lower Body Dressing (QC): 2 On/Off Footwear (QC): 2 Toileting Hygiene (QC): 1 (folety catheter) PT Electron Microscopist Goals Skilled Nursing Goals PT Skilled Nursing Goals Time Frame: Jun 30, 2021 Roll Left to Right (QC): 6 Sit to Lying (QC): 6 Lying-Sitting on Side/Bed(QC): 6 Sit to Stand (QC): 6 Chair/Ybm-km-Cjrbh Xfer(QC): 6 Car Transfer (QC): 6 Does the Patient Walk: Yes Walk 10 feet (QC): 5 Walk 10ft-Uneven Surface(QC): 4 Walk 50ft with 2 Turns (QC): 5 Walk 150 ft (QC): 4 Does the Pt use WC or Scooter?: No Wheel 50 feet with 2 turns (QC: 88 1 Step (curb) (QC): 3 4 Steps (QC): 3 12 Steps (QC): 3 Picking up an Object (QC): 4 OT Electron Microscopist Goals Electron Microscopist Goals Time Frame: Jun 30, 2021 Eating (QC): 6 (met) Oral Hygiene (QC): 6 (met) Shower/Bathe Self (QC): 6 (not met) Upper Body Dressing (QC): 6 (not met) Lower Body Dressing (QC): 6 (not met) On/Off Footwear (QC): 6 (not met) Toileting Hygiene (QC): 6 (not met) Toilet/Commode Transfer (QC): 6 (not met) Additional Goals: 1-Demonstrate ADL Tasks, 2-Verbalize Understanding, 3-ImproveStrength/Mallika 1=Demonstrate adherence to instructed precautions during ADL tasks. 2=Patient will verbalize/demonstrate understanding of assistive devices/modifications for ADL. 3=Patient will improve strength/tolerance for activity to enable patient to perform ADL's. Yuridia Spencer OT May 31, 2021 09:10
[2021-06-06] MEDS ORDERED: LIDOCAINE DRIP 500 ML IV SCH (13:15)
== END 2021-05-30 13:00 | disposition short-term general hospital (02) | DRG 559 ==
PROVIDERS: ADMIT Internal Medicine; ATTEND Internal Medicine
DX: S82.831D Other fracture of upper and lower end of right fibula, subsequent encounter for closed fracture with routine healing (principal); I21.A1 Myocardial infarction type 2; I42.8 Other cardiomyopathies; N39.0 Urinary tract infection, site not specified; I47.2 Ventricular tachycardia; E11.9 Type 2 diabetes mellitus without complications; N40.1 Benign prostatic hyperplasia with lower urinary tract symptoms; R33.8 Other retention of urine; I10 Essential (primary) hypertension; G80.9 Cerebral palsy, unspecified; I95.9 Hypotension, unspecified; M10.9 Gout, unspecified; E78.00 Pure hypercholesterolemia, unspecified; E78.2 Mixed hyperlipidemia; B95.2 Enterococcus as the cause of diseases classified elsewhere; Z87.891 Personal history of nicotine dependence; Z95.810 Presence of automatic (implantable) cardiac defibrillator; Z79.82 Long term (current) use of aspirin; Z79.899 Other long term (current) drug therapy
CPT/HCPCS: 36415; 80053; 81000; 82947; 85025; 87077; 87088; 87186

== ENCOUNTER 2021-05-30 13:14 | Inpatient (IN) | payer OTHER ==
[2021-05-30] VITALS (11 sets, daily range): BP systolic 86–110; BP diastolic 63–97
[~2021-05-30 13:14] MED LIST changes: -AMIO200T65 PO; -ASPI-999 PO; -FAMO20TA5 PO; -FINASTERIDE (PROSCAR) 5 MG TAB PO SCH; -LIDOCAINE UROJET 2% GEL 10 ML PKG ONE; -METO-333 PO
[2021-05-30] MEDS ORDERED: LIDOCAINE BOLUS 100 MG/5 ML (IMS) SYR IV NR ×2 (13:30→13:45)
[2021-05-30] MEDS ORDERED: LIDOCAINE DRIP 500 ML IV SCH ×2 (13:33→13:45)
[2021-05-30] MEDS ORDERED: ONDANSETRON 4 MG/2 ML (SDV) Z0FRAN ONE (15:51)
[2021-05-30] MEDS ORDERED: NS IV 500 ML 500 ML ONE (15:59)
[2021-06-06] MEDS ORDERED: LIDOCAINE DRIP 500 ML IV SCH (13:15)
== END 2021-05-30 20:00 | disposition short-term general hospital (02) | DRG 280 ==
LOC: ICU 13:31
PROVIDERS: ADMIT Internal Medicine; ATTEND Internal Medicine
DX: I47.2 Ventricular tachycardia (principal); R57.0 Cardiogenic shock; I21.A1 Myocardial infarction type 2; I42.8 Other cardiomyopathies; N39.0 Urinary tract infection, site not specified; N17.9 Acute kidney failure, unspecified; S82.401A Unspecified fracture of shaft of right fibula, initial encounter for closed fracture; I10 Essential (primary) hypertension; E78.2 Mixed hyperlipidemia; G80.9 Cerebral palsy, unspecified; I95.9 Hypotension, unspecified; R09.02 Hypoxemia; B95.2 Enterococcus as the cause of diseases classified elsewhere; E11.9 Type 2 diabetes mellitus without complications; N40.1 Benign prostatic hyperplasia with lower urinary tract symptoms; R33.8 Other retention of urine; Z87.891 Personal history of nicotine dependence; Z79.82 Long term (current) use of aspirin; Z79.899 Other long term (current) drug therapy
CPT/HCPCS: 87081; 93005

== ENCOUNTER → 2021-05-30 | Day surgery (SDC) | payer MEDICARE, OTHER ==
[~2021-05-30] MED LIST changes: +AMIO200T65 PO; +ASPI-999 PO; +FAMO20TA5 PO; +FINASTERIDE (PROSCAR) 5 MG TAB PO SCH; +LIDOCAINE UROJET 2% GEL 10 ML PKG ONE; +METO-333 PO
--- NOTE | 2021-05-30 09:07 | Progress Note-Pre Operative ---
Pre-Operative Progress Note H&P Reviewed The H&P was reviewed, patient examined and no changes noted. Date Seen by Provider: May 30, 2021 Time Seen by Provider: 08:45 Date H&P Reviewed: May 30, 2021 Time H&P Reviewed: 08:45 Pre-Operative Diagnosis: urine retention ANABELLA PORTER MD May 30, 2021 09:07
--- NOTE | 2021-05-30 09:08 | Progress Note-Post Operative ---
Post-Operative Progess Note Surgeon (s)/Mechanical Process Engineer (s) Surgeon ANABELLA PORTER MD Mechanical Process Engineer: NONE Pre-Operative Diagnosis URINE RETENTION Post-Operative Diagnosis SAME Procedure & Operative Findings Date of Procedure 05/30/21 Procedure Performed/Findings CYSTOSCOPY Anesthesia Type LOCAL Estimated Blood Loss Estimated blood loss (mL): NONE Specimens/Packing Specimens Removed NONE Packing: NONE ANABELLA PORTER MD May 30, 2021 09:08
--- NOTE | 2021-05-30 19:17 | OPERATIVE REPORT ---
DATE OF SERVICE: 05/30/2021 PREOPERATIVE DIAGNOSIS: Urinary retention. POSTOPERATIVE DIAGNOSIS: Urinary retention. OPERATION PERFORMED: Cystoscopy. SURGEON: Ian Porter MD ANESTHESIA: Local. COMPLICATIONS: None. DESCRIPTION OF PROCEDURE: With the patient supine in his bed after removing the Duong catheter, the genitalia were prepped and draped in the usual sterile fashion. Flexible cystoscope was introduced under vision after infiltrating the urethra with 2% lidocaine jelly and a penile clamp applied for a couple of minutes. Anterior urethra was normal. The prostate showed enlargement of the lateral lobe meeting in the midline causing bladder neck obstruction. Bladder was inspected, revealed trabeculations, no foreign body, bladder tumor or stone visualized. Ureteric orifices were normal with clear effluxes. Cystoscopy was confirmed in an antegrade fashion and the cystoscope was removed. The patient tolerated the procedure and anesthesia well and remained in his bed in stable condition. PLAN: Trial of voiding. We will follow up with bladder scan postvoid residual. If it is straight cath more than two times, we will reinsert the Duong catheter. If conservative will fail, we will consider some surgical procedure, either a UroLift or a TURP. At that time, we will have to do a transrectal ultrasound of his prostate to size the prostate for appropriate procedure. For now, I started him also on Proscar. We will keep him on the Flomax and all this was fully explained to him. Job ID: [id number] DocumentID: [id number] Dictated Date: 05/30/2021 18:05:37 Security Intern Date: 05/30/2021 19:16:30 Dictated By: IAN PORTER MD
== END | disposition home or self-care (01) ==
LOC: SDC 08:10
PROVIDERS: ATTEND Urology
DX: N40.1 Benign prostatic hyperplasia with lower urinary tract symptoms (principal); R33.8 Other retention of urine; N13.8 Other obstructive and reflux uropathy; Z79.899 Other long term (current) drug therapy

== ENCOUNTER 2021-06-05 10:23 | Inpatient (IN) | payer MEDICARE, OTHER ==
[~2021-06-05] VITALS: Ht 182.9 cm; Wt 103.9 kg
[2021-06-05] MEDS ORDERED: AMIO200T65 PO ×2 (12:17→12:22)
[2021-06-05] MEDS ORDERED: METO-333 PO (12:17)
[2021-06-05] MEDS ORDERED: ASPI-999 PO (12:17)
[2021-06-05] MEDS ORDERED: FAMO20TA5 PO (12:17)
[2021-06-05] MEDS ORDERED: BISACODYL 10 MG SUPP (DULCOLAX) PR PRN (13:00)
[2021-06-05] MEDS ORDERED: FLEET ENEMA ADULT 1 EA BTL PR PRN (13:00)
[2021-06-05] MEDS ORDERED: guaiFENesin/CODEINE (ROBITUSSIN AC) 10ML UDC PO PRN (13:00)
[2021-06-05] MEDS ORDERED: LOPERAMIDE 2 MG (IMODIUM) TABLET PO PRN (13:00)
[2021-06-05] MEDS ORDERED: ONDANSETRON 4 MG (ZOFRAN) ORAL DISSOLVE TAB PO PRN (13:00)
[2021-06-05] MEDS ORDERED: ALPRAZolam 0.25 MG (XANAX) TAB PO PRN (13:00)
[2021-06-05] MEDS ORDERED: CALCIUM CARBONATE 500 MG (TUMS) TAB.CHEW PO PRN (13:00)
[2021-06-05] MEDS ORDERED: DOCUSATE SODIUM 100 MG (COLACE) CAP PO PRN (13:00)
[2021-06-05] MEDS ORDERED: LACTULOSE SYRUP 10GM/15ML (ENULOSE) 30ML UDC PO PRN (13:00)
[2021-06-05] MEDS ORDERED: diphenhydrAMINE 25 MG TAB (BENADRYL) PO PRN (13:00)
[2021-06-05] MEDS ORDERED: ENOXAPARIN 40 MG/0.4 ML (LOVENOX) SYR SC SCH (13:15)
[2021-06-05] MEDS ORDERED: ACETAMINOPHEN 500 MG TAB (TYLENOL) PO PRN (13:15)
[2021-06-05] MEDS ORDERED: RT-ALBUTEROL SULF 2.5 MG/3 ML PRE-MIX VIAL IH PRN (13:15)
[2021-06-05 16:45] VITALS: BP 150/84
[2021-06-05] MEDS ORDERED: ACETAMINOPHEN 500 MG TAB (TYLENOL) ONE (16:54)
--- NOTE | 2021-06-05 17:30 | Diagnostic Imaging Report ---
HISTORY: Fibula fracture. COMPARISON: 05/19/2021. TECHNIQUE: Three views of the right ankle. FINDINGS: There is an oblique Edwards type B fracture of the right ankle with minimal lateral displacement which appears mildly increased compared to the prior exam. No definite bony bridging is seen, but there does appear to be some periosteal reaction. The ankle mortise appears symmetric. There is moderate soft tissue swelling about the ankle. No other fractures are seen. IMPRESSION: 1. Minimally displaced healing fracture of the lateral malleolus in the right ankle. Dictated by: Dictated on workstation # [id number]
--- NOTE | 2021-06-05 17:36 | Progress Note ---
SANDRA LINARES MED STUDENT 06/05/21 1736: Progress Note CC: Acute rehabilitation unit admission, R tibia/fibula fracture HPI: This is Jabier, a 76 yo M who presents from [facility] for admission to the acute rehabilitation unit. Three weeks ago, while on his way to a cardiology appointment, he had a syncopal episode, fell and broke his R tib ia/fibula at the ankle. He was then admitted to the ARU here at [facility] emergency department. During this time, pt continued to be in sustained ventricular tachycardia, unresponsive to amiodarone and lidocaine. He was then transferred to [facility] for the increased acuity of care. While he was there, an ablation was performed for SVT. S/P ablation he has continued to be in sinus rhythm. He was transferred back to [facility] to continue PT/OT in the ARU. At this time, Jabier endorses that he is feeling well and the only thing bothering him is the pain in his R ankle. Pt is in a cam boot. He denies any headaches, dizziness, chest pain, palpitations, cough, shortness of breath. Pt is most concerned about the urinary retention that he has been having, was seen by Dr. Lomeli during his prior admission. Does have a history of constipation, last bm was earlier today. He is still struggling with ambulation, balance, bed motility, range of motion and strength. PMH: - R tibia/fibula fracture at the ankle - sustained ventricular tachycardia - Hypertension - Benign prostatic hypertrophy - Severe tricuspid regurgitation - Severe R ventricular systolic dysfunction - Right ventricular dysplasia - Constipation ROS: Denies: headaches, vision changes, dizziness, chest pain, palpitations, cough, shortness of breath, nausea, vomiting, diarrhea, constipation, abdominal pain Endorses: urinary retention, R ankle pain Allergy - Statins- unknown reaction Former smoker Denies alcohol use Physical Exam: General: Awake, laying in bed HEENT: EOMI, no cervical lymphadenopathy Cardiac: Regular rate and rhythm, diastolic murmur Lungs: Clear to auscultation bilaterally, normal air movement Skin: scar of unknown etiology located to the R of the sternum A/P - R tibia/fibula fracture at the ankle - decreased ability of balance, ambulation, bed motility - Hypertension - Severe tricuspid regurgitation - Severe R ventricular systolic dysfunction - constipation - BPH - Will continue medication changes made by [facility] - PT/OT to start tomorrow - X-ray of R ankle - Heart healthy diet - Consults with cardiology, orthopedics, urology JESSIKA MACIEL DO 06/06/21 0520: Supervisory-Addendum Brief Verification & Attestation Participated in pt care: history, MDM, physical Personally performed: exam, history, MDM, supervision of care Care discussed with: Medical Student Procedures: n/a Results interpretation: Verified all documentation Verification and Attestation of Medical Student E/M Service A medical student performed and documented this service in my presence. I reviewed and verified all information documented by the medical student and made modifications to such information, when appropriate. I personally performed the physical exam and medical decision making. Jessika Maciel, Jun 06, 2021,05:20 SANDRA LINARES MED STUDENT Jun 05, 2021 17:36 JESSIKA MACIEL DO Jun 06, 2021 05:20
[2021-06-05 20:00] VITALS: BP 145/87
[2021-06-05] MEDS: meTOprolol TARTRATE 25 MG (LOPRESSOR) TABLET PO SCH (20:38)
[2021-06-05] MEDS: AMIODARONE 200 MG (CORDARONE) TAB PO SCH (20:38)
[2021-06-05] MEDS: DOCUSATE SODIUM 100 MG (COLACE) CAP PO SCH (20:38)
[2021-06-05] MEDS: SENNA W/DOCUSATE (SENOKOT S) TABLET PO SCH (20:38)
[2021-06-05] MEDS: ENOXAPARIN 40 MG/0.4 ML (LOVENOX) SYR SC SCH (20:38)
[2021-06-05] MEDS ORDERED: CYCLOBENZAPRINE 10 MG (FLEXERIL) TAB PO PRN (21:00)
[2021-06-05] MEDS: polyethylene glycoL POWDER 17 GM (MIRALAX) PACK PO SCH (21:10)
[2021-06-05] MEDS: ACETAMINOPHEN 325 MG TABLET PO PRN (23:03)
[2021-06-06] MEDS: MELATONIN 3 MG TABLET PO PRN (00:44)
[2021-06-06] MEDS: ACETAMINOPHEN 325 MG TABLET PO PRN ×2 (05:17→14:14)
--- NOTE | 2021-06-06 05:22 | PM&R Post Admission Assessment ---
PM&R HP Date of Visit: Jun 06, 2021 Time of Visit: 09:00 History of Present Illness CC: Debility HPI: This is a 76yoWM who presents again to IRF after ventricular ablation due to ventricular tachycardia prompting transfer out of IRF to ICU placed on Lidocaine drip and transferred to [place] s/p ablation. Patient required mendez cath replacement so Urology will be consulted. Patient feels good and BM moved yesterday. CC: Acute rehabilitation unit admission, R tibia/fibula fracture HPI: This is Jabier, a 76 yo M who presents from [facility] for a dmission to the acute rehabilitation unit. Three weeks ago, while on his way to a cardiology appointment, he had a syncopal episode, fell and broke his R tibia/fibula at the ankle. He was then admitted to the ARU here at [facility] via [facility]. During this time, pt continued to be in sustained ventricular tachycardia, unresponsive to amiodarone and lidocaine. He was then transferred to [facility] for the increased acuity of care. While he was there, an ablation was performed for SVT. S/P ablation he has continued to be in sinus rhythm. He was transferred back to [facility] to continue PT/OT in the ARU. At this time, Jabier endorses that he is feeling well and the only thing bothering him is the pain in his R ankle. Pt is in a cam boot. He denies any headaches, dizziness, chest pain, palpitations, cough, shortness of breath. Pt is most concerned about the urinary retention that he has been having, was seen by Dr. Lomeli during his prior admission. Does have a history of constipation, last bm was earlier today. He is still struggling with ambulation, balance, bed motility, range of motion and strength. PMH: - R tibia/fibula fracture at the ankle - sustained ventricular tachycardia - Hypertension - Benign prostatic hypertrophy - Severe tricuspid regurgitation - Severe R ventricular systolic dysfunction - Right ventricular dysplasia - Constipation ROS: Denies: headaches, vision changes, dizziness, chest pain, palpitations, cough, shortness of breath, nausea, vomiting, diarrhea, constipation, abdominal pain Endorses: urinary retention, R ankle pain Allergy - Statins- unknown reaction Former smoker Denies alcohol use Physical Exam: General: Awake, laying in bed HEENT: EOMI, no cervical lymphadenopathy Cardiac: Regular rate and rhythm, diastolic murmur Lungs: Clear to auscultation bilaterally, normal air movement Skin: scar of unknown etiology located to the R of the sternum A/P - R tibia/fibula fracture at the ankle - decreased ability of balance, ambulation, bed motility - Hypertension - Severe tricuspid regurgitation - Severe R ventricular systolic dysfunction - constipation - BPH - Will continue medication changes made by [facility] - PT/OT to start tomorrow - X-ray of R ankle - Heart healthy diet - Consults with cardiology, orthopedics, urology SANDRA LINARES MED STUDENT Jun 05, 2021 17:36 <Created by SANDRA LINARES > Past Lfvgidh-Iopath-Hdryvw Hx Past Med/Social Hx: Reviewed Nursing Past Med/Soc Hx, Reviewed and Corrections made Patient Social History Marrital Status: cohabiting Employed/Student: retired Alcohol Use: Denies Use Smoking Status: Former Smoker Recent Hopitalizations: No Immunizations Up To Date Date of Influenza Vaccine: Jan 02, 2021 Past Medical History Surgeries: Defibrillator, Orthopedic, Pacemaker Cardiac: Cardiomyopathy, High Cholesterol Neurological: Cerebral Palsy Genitourinary: Benign Prostatic Hyperpl, Kidney Infection, Prostate Problems, Bladder Infection Gastrointestinal: Chronic Constipation Musculoskeletal: Gout Endocrine: Diabetes, Non-Insulin dep PM&R Allergy/Meds/Data Review Allergies Uncoded Allergies: UNKNOWN CHOLESTEROL MED. (Allergy, Unknown, 02/12/18) Home Medications Scheduled Allopurinol (Allopurinol), 100 MG PO DAILY, (Reported) Amiodarone HCl (Amiodarone HCl), 400 MG PO BID, (Reported) Amiodarone HCl (Amiodarone HCl), 200 MG PO DAILY, (Reported) Antiox #11/Om3/Dha/Epa/Lut/Salvador (Eye Health Adult 50+ Softgel), 1 EACH PO DAILY, (Reported) Ascorbate Calcium (Vitamin C), 500 MG PO DAILY, (Reported) Aspirin (Aspirin), 81 MG PO DAILY, (Reported) Cyanocobalamin (Vitamin B-12) (Vitamin B-12), 1,000 MCG PO DAILY, (Reported) Famotidine (Famotidine), 20 MG PO DAILY, (Reported) Metoprolol Tartrate (Metoprolol Tartrate), 25 MG PO BID, (Reported) Multivitamin with Minerals (Multivitamins with Minerals), 1 EACH PO DAILY, (Reported) Tamsulosin HCl (Flomax), 0.4 MG PO DAILY, (Reported) Scheduled PRN Acetaminophen (Tylenol Extra Strength), 1,000 MG PO Q8H PRN for PAIN-MILD (1-4) OR TEMPATURE, (Reported) Albuterol Sulfate (Proair Hfa), 2 PUFF IH QID PRN for SHORTNESS OF BREATH, (Reported) Cyclobenzaprine HCl (Cyclobenzaprine HCl), 10 MG PO HS PRN for MUSCLE SPASMS, (Reported) Discontinued Medications Amlodipine Besylate (Amlodipine Besylate), 2.5 MG PO 1200, (Reported) Discontinued Reason: No Longer Taking Atorvastatin Calcium (Atorvastatin Calcium), 40 MG PO HS, (Reported) Discontinued Reason: No Longer Taking Hydrochlorothiazide (Hydrochlorothiazide), 12.5 MG PO, (Reported) Discontinued Reason: No Longer Taking Lisinopril (Lisinopril), 40 MG PO DAILY, (Reported) Discontinued Reason: No Longer Taking Current Medications Current Medications Reviewed Review of Systems Constitutional: see HPI, malaise, weakness EENTM: no symptoms reported Respiratory: no symptoms reported Cardiovascular: no symptoms reported Gastrointestinal: no symptoms reported Genitourinary: other (retention) Musculoskeletal: back pain, joint pain, muscle weakness Skin: no symptoms reported Psychiatric/Neurological: No Symptoms Reported All Other Systems Reviewed Negative Unless Noted: Yes Physical Exam Physical Exam Vital Signs Vital Signs - First Documented 06/05/21 16:45 Temp 36.6 Pulse 70 Resp 18 B/P (MAP) 150/84 (106) Pulse Ox 94 O2 Delivery Room Air Capillary Refill : Height, Weight, BMI Height: 6'1.00" Weight: 235lbs. oz. 106.269686cc; 31.68 BMI Method:Stated General Appearance: No Apparent Distress, WD/WN, Chronically ill Eyes: Bilateral Eye Normal Inspection, Bilateral Eye PERRL HEENT: PERRL/EOMI, Normal ENT Inspection, Pharynx Normal Neck: Full Range of Motion, Normal Inspection, Non Tender, Supple, Carotid Bruit Respiratory: Chest Non Tender, Lungs Clear, Normal Breath Sounds, No Accessory Muscle Use, No Respiratory Distress Cardiovascular: Regular Rate, Rhythm, No Edema, No Gallop, No JVD, No Murmur, Normal Peripheral Pulses Gastrointestinal: Normal Bowel Sounds, No Organomegaly, No Pulsatile Mass, Non Tender, Soft Back: Normal Inspection, No CVA Tenderness, No Vertebral Tenderness Extremity: Normal Capillary Refill, Normal Inspection, Normal Range of Motion, Non Tender, No Calf Tenderness, No Pedal Edema Neurologic/Psychiatric: Alert, Oriented x3, No Motor/Sensory Deficits, Normal Mood/Affect, Motor Weakness Skin: Normal Color, Warm/Dry Lymphatic: No Adenopathy PM&R Medical Assessment & Plan REHAB/MEDICAL ASSESSMENT AND PLAN: REHAB IMPAIRMENT GROUP: [ ] ETIOLOGIC DIAGNOSIS: [ (condition that led to rehab admission) ] The comorbidities that impact the patients function and/or functional outcome by: [ ] REHAB PLAN: The patient is being admitted to our comprehensive inpatient rehabilitation facility and can tolerate the intensity of service consisting of at least: 180 minutes of therapy a day, 5 out of 7 days a week Rehab treatment will consist of: [ (write brief focus that includes physician, rehab nursing and therapies/modalitiesIPOC will have more specifics) ] The patient/family has a good understanding of our discharge process and will benefit from an interdisciplinary inpatient rehabilitation program. The patient has potential to make improvement and is in need of at least two of the following multidisciplinary therapies including but not limited to physical, occupational, speech, and prosthetics and orthotics. Additionally the patient will need services from respiratory, nutritional services, wound care, ps ychology, etc. (Customize this to each patient). Given the patients complex condition and risk of further medical complications, rehabilitation services cannot be safely or effectively provided at a lower level of care such as a correction facility. BARRIERS TO DISCHARGE: [ ] ESTIMATED LOS: [ ] DISPOSITION: [ ] RELEVANT CHANGES SINCE PREADMISSION SCREENING: I have compared the patients medical and functional status at the time of the preadmission screening and there are: [no changes] [changes as follows: (if there is a discrepancy between the IGC/Etiologic stated on the PAS, address/clarify this as well) ] PROGNOSIS: [ ] REHABILITATION GOALS: 1. [ (specific to the patient) ] All the above goals were reviewed with the patient and he/she is in agreement. By signing this document, I acknowledge that I have personally performed a full physical examination on this patient within 24 hours of admission to this inpatient rehabilitation facility and have determined the patient to be able to tolerate the above course of treatment at an intensive level for a reasonable period of time. I will be completing a detailed individualized Plan of Care for this patient by day #4 of the patients stay based upon the Preadmission Screen, the Post-Admission Evaluation, and the therapy evaluations. Admission Dx/Comorbidities: (1) Debility ICD Codes: R53.81 - Other malaise (2) Right fibular fracture Status: Acute ICD Codes: S82.401A - Unspecified fracture of shaft of right fibula, initial encounter for closed fracture (3) Arrhythmogenic right ventricular dysplasia Status: Acute ICD Codes: I42.8 - Other cardiomyopathies (4) Right heart failure ICD Codes: I50.810 - Right heart failure, unspecified (5) Primary hypertension ICD Codes: I10 - Essential (primary) hypertension (6) Ventricular tachycardia Status: Acute ICD Codes: I47.2 - Ventricular tachycardia (7) Mixed hyperlipidemia ICD Codes: E78.2 - Mixed hyperlipidemia (8) Cerebral palsy ICD Codes: G80.9 - Cerebral palsy, unspecified (9) Cardiogenic shock Status: Acute ICD Codes: R57.0 - Cardiogenic shock (10) Acute kidney injury Status: Acute ICD Codes: N17.9 - Acute kidney failure, unspecified Assessment/Plan Assessment and Plan Assess & Plan/Chief Complaint Assessment: R distal fibular fracture 3 weeks ago now partial weight bearing per Dr Albright 06/06/21 NSTEMI, s/p cardioversion on 05/19 Ventricular tachycardia recurrent with hypotension prompting transfer to ICU on 05/30/2021 on lidocaine drip and transferred to [place] s/p ablation Cardiogenic shock, resolved T2DM Arrhythmogenic Right Ventricular Dysplasia NEVAEH, resolved Cerebral palsy history BPH DVT risk Urinary retention requiring mendez cath reinsertion Chronic Constipation s/p UTI Enterococcus placed on Vanco empirically 05/26/2021 then changed to Amoxil after sensitivities completed last admit Anemia of chronic disease Plan: Rehab protocol Pain control Partial weight bearing Urology consult Dr Albright consult Dr Farrar consult Check TSH to labs VALERIY POTTS DO Jun 06, 2021 05:22
[2021-06-06 05:30] LABS: BASOPHILS % (AUTO) 1 % (0-10); EOSINOPHILS # (AUTO) 0.2 10^3/uL (0.0-0.3); EOSINOPHILS % (AUTO) 3 % (0-10); HEMATOCRIT 33 % (40-54); HEMOGLOBIN 10.9 g/dL (13.3-17.7); LYMPHOCYTES # (AUTO) 1.3 10^3/uL (1.0-4.0); LYMPHOCYTES % (AUTO) 19 % (12-44); MEAN CORPUSCULAR HEMOGLOBIN 34 pg (25-34); MEAN CORPUSCULAR HGB CONC 33 g/dL (32-36); MEAN CORPUSCULAR VOLUME 101 fL (80-99); MEAN PLATELET VOLUME 9.8 fL (9.0-12.2); MONOCYTES # (AUTO) 0.6 10^3/uL (0.0-1.0); MONOCYTES % (AUTO) 8 % (0-12); NEUTROPHILS # (AUTO) 4.6 10^3/uL (1.8-7.8); NEUTROPHILS % (AUTO) 69 % (42-75); PLATELET COUNT 253 10^3/uL (130-400); WHITE BLOOD COUNT 6.7 10^3/uL (4.3-11.0)
[2021-06-06 05:39] LABS: ALBUMIN 3.2 GM/DL (3.2-4.5); POTASSIUM 4.3 MMOL/L (3.6-5.0)
[2021-06-06 05:41] LABS: CALCIUM 8.9 MG/DL (8.5-10.1)
[2021-06-06 05:42] LABS: TOTAL PROTEIN 6.8 GM/DL (6.4-8.2)
[2021-06-06 05:44] LABS: BILIRUBIN,TOTAL 0.7 MG/DL (0.1-1.0)
[2021-06-06 05:45] LABS: CREATININE SERUM 0.97 MG/DL (0.60-1.30)
[2021-06-06 07:23] VITALS: BP 148/71
[2021-06-06] MEDS: ASPIRIN 81 MG CHEW (CHILDREN'S ASA) PO SCH (08:03)
[2021-06-06] MEDS: CYANOCOBALAMIN 1,000 MCG (VITAMIN B-12) TABLET PO SCH (08:03)
[2021-06-06] MEDS: SENNA W/DOCUSATE (SENOKOT S) TABLET PO SCH ×2 (08:03→20:38)
[2021-06-06] MEDS: AMIODARONE 200 MG (CORDARONE) TAB PO SCH (08:03)
[2021-06-06] MEDS: ASCORBIC ACID (VIT C) 500 MG TABLET PO SCH (08:03)
[2021-06-06] MEDS: DOCUSATE SODIUM 100 MG (COLACE) CAP PO SCH ×2 (08:03→20:37)
[2021-06-06] MEDS: meTOprolol TARTRATE 25 MG (LOPRESSOR) TABLET PO SCH ×2 (08:04→20:37)
[2021-06-06] MEDS: MULTIVIT W/MINERALS TAB (THERAGRAN M) PO SCH (08:04)
[2021-06-06] MEDS: FAMOTIDINE 20 MG (PEPCID) TABLET PO SCH (08:04)
[2021-06-06] MEDS: TAMSULOSIN 0.4 MG (FLOMAX) CAP PO SCH (08:04)
[2021-06-06] MEDS: polyethylene glycoL POWDER 17 GM (MIRALAX) PACK PO SCH ×2 (08:06→20:38)
[2021-06-06] MEDS: ALLOPURINOL 100 MG (ZYLOPRIM) TAB PO SCH (08:08)
[2021-06-06] MEDS ORDERED: [UNRECOGNIZED DRUG - OTHER] PO SCH (09:00)
--- NOTE | 2021-06-06 09:58 | Consultation-Cardiology ---
HPI-Cardiology Cardiology Consultation: Date of Consultation 06/06/21 Date of Admission 06/05/21 Attending Physician Jessika Maciel DO Admitting Physician Marsha,Local Physician Consulting Physician JOSEFINA JUNE JR, MD HPI: Time Seen by a Provider: 09:56 Chief Complaint: Reason for consultation: Ventricular tachycardia and right heart failure. I had the pleasure of seeing Truman on the inpatient rehabilitation unit at [facility] in [place], [place] this morning. He is known to me from a previous hospitalization. He had been following with a geomagnetist at the [facility] in [place], [place] in the past. He was here on our inpatient rehabilitation unit last week due to right fibula fracture. He then developed recurrent, sustained ventricular tachycardia. I sent him to [facility] where he underwent a complex ablation for ventricular tachycardia. He also had recurrent urinary retention while at the outside facility and a Duong catheter was placed. He is now back on our inpatient rehabilitation unit due to the right fibula fracture. He denies chest discomfort, dyspnea at rest, paroxysmal nocturnal dyspnea, orthopnea, palpitations, lightheadedness, or syncope. He has chronic, mild ankle edema which is unchanged. Because of the ventricular tachycardia and right heart failure, a cardiology consultation was requested. Certain portions of this document may have been dictated utilizing voice recognition technology. Inherent to this technology, typographical and grammatical errors may exist. As much as I am diligent to identify and correct these mistakes, some errors may remain in the document. Review of Systems-Cardiology Review of Systems Other comments Review of 10 organ systems is as per the history of present illness, otherwise negative. All Other Systems Reviewed Negative Unless Noted: Yes CJY-Dcliwj-Wmshmd Hx Patient Social History Marrital Status: cohabiting Employed/Student: retired Smoking Status: Former Smoker Alcohol Use?: No Pt feels they are or have been: No Immunizations Up To Date Date of Influenza Vaccine: Jan 02, 2021 Past Medical History PMH As described under Assessment. Family Medical History Family Medical History: His father had arrhythmogenic right ventricular dysplasia. Allergies and Home Medications Allergies Uncoded Allergies: UNKNOWN CHOLESTEROL MED. (Allergy, Unknown, 02/12/18) Patient Home Medication List Home Medication List Reviewed: Yes Acetaminophen (Tylenol Extra Strength) 500 Mg Tablet, 1,000 MG PO Q8H PRN for PAIN-MILD (1-4) OR TEMPATURE, (Reported) Entered as Reported by: GIO CARLOS on 05/19/211547 Last Action: Continued Albuterol Sulfate (Proair Hfa) 1 Puff Puff, 2 PUFF IH QID PRN for SHORTNESS OF BREATH, (Reported) Entered as Reported by: GIO CARLOS on 05/19/211547 Last Action: Continued Allopurinol (Allopurinol) 100 Mg Tablet, 100 MG PO DAILY, (Reported) Entered as Reported by: GIO CARLOS on 05/19/211547 Last Action: Continued Amiodarone HCl (Amiodarone HCl) 200 Mg Tablet, 400 MG PO BID, (Reported) Entered as Reported by: GIO CARLOS on 06/05/211216 Last Action: Continued Amiodarone HCl (Amiodarone HCl) 200 Mg Tablet, 200 MG PO DAILY, (Reported) Entered as Reported by: GIO CARLOS on 06/05/21 1222 Last Action: Continued Antiox #11/Om3/Dha/Epa/Lut/Salvador (Eye Health Adult 50+ Softgel) 1 Each Capsule, 1 EACH PO DAILY, (Reported) Entered as Reported by: GIO CARLOS on 05/19/211548 Last Action: Converted Ascorbate Calcium (Vitamin C) 500 Mg Tablet, 500 MG PO DAILY, (Reported) Entered as Reported by: GIO CARLOS on 05/19/211547 Last Action: Converted Aspirin (Aspirin) 81 Mg Tab.chew, 81 MG PO DAILY, (Reported) Entered as Reported by: GIO CARLOS on 06/05/211216 Last Action: Continued Cyanocobalamin (Vitamin B-12) (Vitamin B-12) 1,000 Mcg Tablet, 1,000 MCG PO DAILY, (Reported) Entered as Reported by: GIO CARLOS on 05/19/211548 Last Action: Continued Cyclobenzaprine HCl (Cyclobenzaprine HCl) 10 Mg Tablet, 10 MG PO HS PRN for MUSCLE SPASMS, (Reported) Entered as Reported by: GIO CARLOS on 05/19/211548 Last Action: Continued Famotidine (Famotidine) 20 Mg Tablet, 20 MG PO DAILY, (Reported) Entered as Reported by: GIO CARLOS on 06/05/211216 Last Action: Continued Metoprolol Tartrate (Metoprolol Tartrate) 25 Mg Tablet, 25 MG PO BID, (Reported) Entered as Reported by: GIO CARLOS on 06/05/211216 Last Action: Continued Multivitamin with Minerals (Multivitamins with Minerals) 1 Each Tablet, 1 EACH PO DAILY, (Reported) Entered as Reported by: GIO CARLOS on 05/19/211548 Last Action: Continued Tamsulosin HCl (Flomax) 0.4 Mg Cap, 0.4 MG PO DAILY, (Reported) Entered as Reported by: GIO CARLOS on 05/19/211548 Last Action: Continued Discontinued Medications Amlodipine Besylate (Amlodipine Besylate) 5 Mg Tablet, 2.5 MG PO 1200, (Reported) Discontinued Reason: No Longer Taking Entered as Reported by: GIO CARLOS on 05/19/211547 Last Action: Discontinued Atorvastatin Calcium (Atorvastatin Calcium) 80 Mg Tablet, 40 MG PO HS, (Reported) Discontinued Reason: No Longer Taking Entered as Reported by: GIO CARLOS on 05/19/211547 Last Action: Discontinued Hydrochlorothiazide (Hydrochlorothiazide) 25 Mg Tablet, 12.5 MG PO, (Reported) Discontinued Reason: No Longer Taking Entered as Reported by: GIO CARLOS on 05/19/211548 Last Action: Discontinued Lisinopril (Lisinopril) 40 Mg Tablet, 40 MG PO DAILY, (Reported) Discontinued Reason: No Longer Taking Entered as Reported by: GIO CARLOS on 05/19/211548 Last Action: Discontinued Exam Vital Signs Vital Signs Date Time Temp Pulse Resp B/P (MAP) Pulse Ox O2 Delivery O2 Flow Rate FiO2 06/06/21 09:07 Room Air 06/06/21 07:23 36.4 63 18 148/71 (96) 93 Physical Exam General: Alert. No acute distress. Well nourished and appears stated age. Eye: Extraocular movements are intact. Conjunctivae are clear. There are no xanthelasma. HENT: Normocephalic. Atraumatic. Carotid pulsations 2/2 without bruits. Neck: Jugular venous pressure does not appear elevated. No thyromegaly appreciated. Respiratory: Lungs are clear to auscultation. Respirations are non-labored. Michaela ath sounds are equal. Symmetrical chest wall expansion. Cardiovascular: Normal rate. Regular rhythm. No murmur. No gallop. Point of maximal impulse is not appear displaced. Good pulses equal in all extremities. No edema. Gastrointestinal: Soft. Normal bowel sounds. Skin: Skin turgor is normal. There is no pallor. Musculoskeletal: No kyphosis or scoliosis appreciated. Neurologic: Alert and oriented to person, place, time. Cranial nerves 3-12 appear grossly intact. The patient has good motor tone strength in the upper and lower extremities bilaterally. Psychiatric: Cooperative. Appropriate mood & affect. Labs Laboratory Tests Test 06/06/21 05:11 Range/Units White Blood Count 6.7 4.3-11.0 10^3/uL Red Blood Count 3.25 L 4.30-5.52 10^6/uL Hemoglobin 10.9 L 13.3-17.7 g/dL Hematocrit 33 L 40-54 % Mean Corpuscular Volume 101 H 80-99 fL Mean Corpuscular Hemoglobin 34 25-34 pg Mean Corpuscular Hemoglobin Concent 33 32-36 g/dL Red Cell Distribution Width 13.6 10.0-14.5 % Platelet Count 253 130-400 10^3/uL Mean Platelet Volume 9.8 9.0-12.2 fL Immature Granulocyte % (Auto) 0 % Neutrophils (%) (Auto) 69 42-75 % Lymphocytes (%) (Auto) 19 12-44 % Monocytes (%) (Auto) 8 0-12 % Eosinophils (%) (Auto) 3 0-10 % Basophils (%) (Auto) 1 0-10 % Neutrophils # (Auto) 4.6 1.8-7.8 10^3/uL Lymphocytes # (Auto) 1.3 1.0-4.0 10^3/uL Monocytes # (Auto) 0.6 0.0-1.0 10^3/uL Eosinophils # (Auto) 0.2 0.0-0.3 10^3/uL Basophils # (Auto) 0.0 0.0-0.1 10^3/uL Immature Granulocyte # (Auto) 0.0 0.0-0.1 10^3/uL Sodium Level 138 135-145 MMOL/L Potassium Level 4.3 3.6-5.0 MMOL/L Chloride Level 104 98-107 MMOL/L Carbon Dioxide Level 21 21-32 MMOL/L Anion Gap 13 5-14 MMOL/L Blood Urea Nitrogen 15 7-18 MG/DL Creatinine 0.97 0.60-1.30 MG/DL Estimat Glomerular Filtration Rate 81 BUN/Creatinine Ratio 15 Glucose Level 112 H 70-105 MG/DL Calcium Level 8.9 8.5-10.1 MG/DL Corrected Calcium 9.5 8.5-10.1 MG/DL Total Bilirubin 0.7 0.1-1.0 MG/DL Aspartate Amino Transf (AST/SGOT) 52 H 5-34 U/L Alanine Aminotransferase (ALT/SGPT) 128 H 0-55 U/L Alkaline Phosphatase 128 40-136 U/L Total Protein 6.8 6.4-8.2 GM/DL Albumin 3.2 3.2-4.5 GM/DL Thyroid Stimulating Hormone (TSH) 1.92 0.35-4.94 UIU/ML ECG Impression ECG Comment Sinus bradycardia at 58 bpm with left anterior hemiblock, right bundle branch block, diffusely low voltages and nonspecific T wave changes. Diagnosis/Problems Diagnosis/Problems (1) Ventricular tachycardia Status: Acute Assessment & Plan: He is now status post ablation for the ventricular tachycardia. He has a [employer]-D device in place. He is now on a loading dose of amiodarone. (2) Arrhythmogenic right ventricular dysplasia Status: Acute Assessment & Plan: We will continue with the amiodarone. (3) Right heart failure Assessment & Plan: He has significant right ventricular enlargement and dysfunction. At the present time he does not have any overt signs of right heart failure but he could develop issues with this in the future. Once he is discharged home, I will consider an outpatient referral to the advanced heart failure team at [facility]. (4) Primary hypertension Assessment & Plan: He is on metoprolol tartrate and blood pressures are intermittently elevated. If this persists, I recommend increasing the dose of metoprolol. I would avoid amlodipine in light of his severe right ventricular dysfunction. (5) Mixed hyperlipidemia Assessment & Plan: Resume statin medication. I will ask pharmacy to restart what he was taking before. Problem Qualifiers (1) Right heart failure: Heart failure chronicity: chronic Qualified Codes: I50.812 - Chronic right heart failure JOSEFINA JUNE JR, MD Jun 06, 2021 09:58
--- NOTE | 2021-06-06 11:07 | Occupational Therapy Eval ---
OT Evaluation-General/PLF Medical Diagnosis Admission Date Jun 05, 2021 at 16:41 Medical Diagnosis: Debility Onset Date: May 19, 2021 Therapy Diagnosis Therapy Diagnosis: decreased ADL status Height/Weight Height (Feet): 6 Height (Inches): 1.00 Weight (Pounds): 235 Precautions Precautions/Isolations: Fall Prevention, Standard Precautions Weight Bear Status Weight Bearing Restriction: Partial Weight Bearing Location Restriction: R LE PWB RLE with CAM boot per Dr Albright 06/06/21 Referral Physician: Janell Referral Reason: Evaluation/Treatment Medical History Additional Medical History BPH, DM, arrhythmogenic R ventricular dysplasia, cardiomyopathy, GOUT, HTN, Current History Pt admitted to [facility] after syncopal episode with fall resulting in R distal fibular fx. Pt transferred to ARU, but developed sustained ventricular tachycardia. He was transferred to [facility] for higher level of care. While there, an ablation was performed. Pt returned to ARU 06/05/21 for continued medication management and skilled therapy. Social History Home: Single Level Current Living Status: Significant Other Entry Into Home: Stairs With Railing Steps Into Home: 1 ADL-Prior Level of Function SCALE: Activities may be completed with or without assistive devices. 2-Zzbbroxpqa-wowrttn completes the activity by him/herself with no assistance from a helper. 5-Set-up or Clean-up Assistance-helper sets up or cleans up; patient completes activity. [place] assists only prior to or following the activity. 4-Supervision or Touching Assistance-helper provides verbal cues and/or touching/steadying and/or contact guard assistance as patient completes activity. Assistance may be provided throughout the activity or intermittently. 3-Partial/Moderate Assistance-helper does LESS THAN HALF the effort. [place] lifts, holds or supports trunk or limbs, but provides less than half the effort. 2-Substantial/Maximal Assistance-helper does MORE THAN HALF the effort. [place] lifts or holds trunk or limbs and provides more than half the effort. 0-Eruitqzpl-ihxvxh does ALL the effort. Patient does none of the effort to complete the activity. Or, the assistance of 2 or more helpers is required for the patient to complete the activity. If activity was not attempted, code reason: 7-Patient Refused. 9-Not Applicable-not attempted and the patient did not perform the activity before the current illness, exacerbation or injury. 10-Not Attempted due to Environmental Limitations-(lack of equipment, weather restraints, etc.). 88-Not Attempted due to Medical Conditions or Safety Concerns. ADL PLOF Comments Pt reports IND with ADLs and functional mobility without AD at PLOF. Pt's friend indicates their house is very full of stuff, it is only a 1 bedroom house with 2 people, 2 dogs, and 1 cat, and stuff everywhere. Pt's friend indicates a w/c and walker are unable to be used in the house because of how much stuff there is. The walker will not fit through the bathroom doors. Pt's friend indicates the only option for them are crutches, and even then crutches would have to be used sideways at times. They have a tub/shower combo with a bath bench. No GBs in bathrooms, as they have been unable to locate studs. Self Care: Independent Functional Cognition: Independent DME/Equipment Comments Pt owns walker, w/c, cane, bath bench OT Current Status Subjective Pt in bed, agreeable to OT tx. Mental Status/Objective Patient Orientation: Person, Place, Situation Attachments: Duong Catheter, Other-See Comments (CAM fernot RLE) Current Glasses/Contacts: Yes Hearing Aids: No Dentures/Partials: No Hand Dominance: Right Upper Extremity ROM WFL BUEs. BUE shoulder flexion to approx 160 degrees. LUE limited in supination, able to bring forearm to neutral but not turn palm upwards Upper Extremity Coordination WFL Upper Extremity Sensation WFL Upper Extremity Strength grossly 4/5 ADL-Treatment Eating (QC): 6 Oral Hygiene (QC): 5 (seated) Shower/Bathe Self (QC): 3 (min A with drying buttocks in stand) Upper Body Dressing (QC): 5 Lower Body Dressing (QC): 3 (Min A in stand for pant hike) On/Off Footwear (QC): 2 (Pt able doff L gripper sock & tedhose, assist to don. Pt required max A to doff and don R CAM boot) Toileting Hygiene (QC): 3 (Min A ) Other Treatments Pt laying in bed, transferred supine to sit EOB, SPT to w/c. Pt taken into bathroom, SPT to SC where pt doffed clothes and completed shower. Pt clothes at MA including CAM boot. Pt stood at [facility] to manage pant hike, SPT to w/c. OT/PT cotreat due to skill of 2 clinicals required which a rehabilitation worker could not perform in order to coordinate UE/LEs, decrease fall risk, focus on higher level balance tasks, maintain PWB RLE, and due to pt's limitations in strength, mobility/transfers, and safety. OT focused on UE placement, cues for sequenc ing/safety, and ADLs, PT focused on LE placement, gross overall movements, transfers/mobility. Pt performed functional mobility/transfers including bed mobility, uneven surface, 1 step, car transfer, walker use, and balance test. He then stood in parallel bars, completing BUE task, while focusing on equal weight through LEs in order to increase dynamic standing balance. Pt completed nut/bolt block, placing/removing x16 bolts, 4 seated rest breaks with task. He then stood and removed beads from moderate resistance theraputty, able to locate all but 1 bead before needing a rest break. Post tx, pt seated in chair in therapy gym, PT present for continued tx, all needs met. min-mod A with sit to/from stands and transfers, CGA with functional mobility using FWW, cues for PWB RLE Education OT Patient Education: Correct positioning, Energy conservation, Exercise program, Modified ADL techniques, Progress toward Goal/Update tx plan, Purpose of tx/functional activities, Rehab process Teaching Recipient: Patient Teaching Methods: Discussion Response to Teaching: Verbalize Understanding OT Short Term Goals Short Term Goals Time Frame: Jun 21, 2021 Shower/bathe self: 5 Lower body dressin Putting on/taking off footwear: 5 OT Dinking Machine Operator Goals Care Home Goals Time Frame: July 07, 2021 Eating (QC): 6 Oral Hygiene (QC): 6 Toileting Hygiene (QC): 6 Shower/Bathe Self (QC): 6 Upper Body Dressing (QC): 6 Lower Body Dressing (QC): 6 On/Off Footwear (QC): 6 1=Demonstrate adherence to instructed precautions during ADL tasks. 2=Patient will verbalize/demonstrate understanding of assistive devices/modifications for ADL. 3=Patient will improve strength/tolerance for activity to enable patient to perform ADL's. OT Education/Plan Problem List/Assessment Assessment: Decreased Activ Tolerance, Decreased Safety Aware, Decreased UE Strength, Impaired Funct Balance, Impaired I ADL's, Impaired Self-Care Skills Discharge Recommendations Plan/Recommendations: Continue POC Treatment Plan/Plan of Care Patient would benefit from OT for education, treatment and training to promote independence in ADL's, mobility, safety and/or upper extremity function for ADL's. Plan of Care: ADL Retraining, Functional Mobility, Group Exercise/Act as Ind, UE Funct Exercise/Act Treatment Duration: July 07, 2021 Frequency: At least 5 of 7 days/Wk (IRF) Estimated Hrs Per Day: 1.5 hours per day Agreement: Yes Rehab Potential: Fair Time/GCodes Start Time: 09:35 Stop Time: 11:00 Total Time Billed (hr/min): 75 Billed Treatment Time OT eval/tx [id number] (25'), PT eval [id number] (not billed), Cotreat [id number] (50') 1, EVM (10'), ADL (20'), FA 3 (45') JOSY RAO OT Jun 06, 2021 11:07
--- NOTE | 2021-06-06 11:11 | Physical Therapy Evaluation ---
PT Evaluation-General Medical Diagnosis Admission Date Jun 05, 2021 at 16:41 Medical Diagnosis: ventricular tachycardia, R distal fibular fx Onset Date: May 19, 2021 Therapy Diagnosis Therapy Diagnosis: Impaired mobility, strength, ROM, ambulation Height/Weight Height (Feet): 6 Height (Inches): 1.00 Weight (Pounds): 235 Precautions Precautions/Isolations: Fall Prevention, Standard Precautions Weight Bear Status Right Lower Extremity: Right Partial Weight Bearing Left Lower Extremity: Left Full Weight Bearing Referral Physician: Janell Reason for Referral: Evaluation/Treatment Medical History Pertinent Medical History: DM Additional Medical History BPH DM, arrhythmogenic R ventricular dysplasia, cardiomyopathy, GOUT Current History Heart Ablation Reviewed History: Yes Social History Home: Single Level Current Living Status: Friend Entry Into Home: Stairs With Railing PT Steps Into Home: 1 Prior Prior Level of Function SCALE: Activities may be completed with or without assistive devices. 2-Ghrauofogz-vmqudol completes the activity by him/herself with no assistance from a helper. 5-Set-up or Clean-up Assistance-helper sets up or cleans up; patient completes activity. [place] assists only prior to or following the activity. 4-Supervision or Touching Assistance-helper provides verbal cues and/or touching/steadying and/or contact guard assistance as patient completes activity. Assistance may be provided throughout the activity or intermittently. 3-Partial/Moderate Assistance-helper does LESS THAN HALF the effort. [place] lifts, holds or supports trunk or limbs, but provides less than half the effort. 2-Substantial/Maximal Assistance-helper does MORE THAN HALF the effort. [place] lifts or holds trunk or limbs and provides more than half the effort. 5-Vfphkifbk-tiglbe does ALL the effort. Patient does none of the effort to complete the activity. Or, the assistance of 2 or more helpers is required for the patient to complete the activity. If activity was not attempted, code reason: 7-Patient Refused. 9-Not Applicable-not attempted and the patient did not perform the activity before the current illness, exacerbation or injury. 10-Not Attempted due to Environmental Limitations-(lack of equipment, weather restraints, etc.). 88-Not Attempted due to Medical Conditions or Safety Concerns. Bed Mobility: 6 Transfers (B,C,W/C): 6 Gait: 6 Stairs: 6 Indoor Mobility (Ambulation): Independent Stairs: Independent Prior Devices Use: Other-see list below Prior Device Use: cane PT Evaluation-Current Subjective Patient was showering with OT prior to treatment. Patient states that he felt good and has no new complaints. Will be co-treating with OT for part of tx due to poor patient mobility, severe debility, coordinate UE and LE during activity, safety and reduce risk of falls. Pain Numeric Pain Scale: 0-No Pain Pt/Family Goals To be independent at home. Objective Patient Orientation: Person, Place, Time, Situation Attachments: Duong Catheter ROM/Strength ROM Lower Extremities Grossly bilaterally intact. R DF/PF not assessed due to cast. Strength Lower Extremities Grossly Bilateral WFL Integumentary/Posture Bowel Incontinence: No Bladder Incontinence: Duong Cath Sensory Vision: Functional Hearing: Functional Transfers Roll Left & Right (QC): 5 Sit to Lying (QC): 4 Lying to Sitting/Side of Bed(Q: 4 Sit to Stand (QC): 3 Chair/Vhc-bz-Hhxqk Xfer(QC): 3 Toilet Transfer (QC): 3 Car Transfer (QC): 3 Gait Does the Patient Walk?: Yes Mode of Locomotion: Walk Anticipated Mode of Locomotion: Walk Walk 10 feet (QC): 4 Walk 50 ft with 2 Turns(QC): 4 Walk 150 ft (QC): 4 Walking 10ft/uneven surface-QC: 4 Distance: 50'x5 Gait Assistive Device: FWW Comments/Gait Description Step-to R gait pattern. PWB status on R Wheelchair Training Does the Pt Use a Wheelchair?: No Wheel 50 ft with 2 turns (QC): 9 Wheel 150 ft (QC): 9 Type of Wheelchair: N/A Stairs 1 Step (curb) (QC): 4 4 Steps (QC): 88 12 Steps (QC): 88 Balance Sitting Static: Normal Sitting Dynamic: Normal Standing Static: Poor Standing Dynamic: Poor Picking up an Object (QC): 4 Special Test Comments Using service captain. Holds on to walker with one hand. Treatment Standing tolerance with UE activity with OT. Assessment/Needs Patient was able to ambulate better with a PWB status compared to a NWB status. Patient required CGA for ambulation using a FWW. Patients balance is impaired (Tinetti score = 13/28) which puts him at risk for falls. Patient can tolerate standing for about 3min while doing UE activity before needing a sitting rest break. Patient was left in bed, with call light, tray and all needs met. Rehab Potential: Fair PT Short Term Goals Short Term Goals Time Frame: Jun 13, 2021 Roll Left & Right: 6 Sit to lyin Lying to sitting on side of be: 6 Sit to stand: 4 Chair/qzd-af-fzjbl transfer: 4 Walk 10 feet: 4 Walk 50 feet with two turns: 4 Walk 150 feet: 4 PT Garden Tractor Mechanic Goals Garden Tractor Mechanic Goals PT Long-Term Goals Time Frame: Jun 27, 2021 Roll Left & Right (QC): 6 Sit to Lying (QC): 6 Lying-Sitting on Side/Bed(QC): 6 Sit to Stand (QC): 6 Chair/Cvy-gg-Ozkho Xfer(QC): 6 Toilet Transfer (QC): 6 Car Transfer (QC): 6 Does the Patient Walk: Yes Walk 10 feet (QC): 6 Walk 50ft with 2 Turns (QC): 6 Walk 150 ft (QC): 6 Walking 10ft on Uneven Surface: 6 1 Step (curb) (QC): 6 4 Steps (QC): 9 12 Steps (QC): 9 Picking up an Object (QC): 6 Does the Pt use WC or Scooter?: No Wheel 50 feet with 2 turns (QC: 9 Type: N/A Wheel 150 feet: 9 Type: N/A PT Plan Problem List Problem List: Activity Tolerance, Functional Strength, Safety, Balance, Gait, Transfer, Bed Mobility, ROM Treatment/Plan Treatment Plan: Continue Plan of Care Treatment Plan: Bed Mobility, Education, Functional Activity [place], Functional Strength, Group Therapy, Gait, Safety, Therapeutic Exercise, Transfers Treatment Duration: Jun 20, 2021 Frequency: At least 5 of 7 days/Wk (IRF) Estimated Hrs Per Day: 1.5 hours per day Patient and/or Family Agrees t: Yes Safety Risks/Education Patient Education: Gait Training, Transfer Techniques, Steps, Reviewed Precautions, Correct Positioning, Safety Issues Teaching Recipient: Patient Teaching Methods: Demonstration, Discussion Response to Teaching: Verbalize Understanding, Reinforcement Needed Discharge Recommendations Plan To work on LE strengthening, balance, ambulation, mobility, education Time/GCodes Time In: 1000 Time Out: 1115 Total Billed Treatment Time: 75 Total Billed Treatment 1 visit EVL 10min FA 65min PT eval from [id number], co-treat from [id number], PT tx from [id number] CHARLEE VELASCO PT Jun 06, 2021 11:11
[2021-06-06] MEDS ORDERED: FINASTERIDE (PROSCAR) 5 MG TAB PO SCH (12:15)
--- NOTE | 2021-06-06 12:26 | Progress Note - Urology ---
Progress Note-Urology Progress Notes/Assess & Plan Progress/Assessment & Plan BACK AFTER HAVING A SUCCESSFUL CARDIAC ABLATION FOR HIS V TACH EPISODE. ON ASA AND LOVENOX. HAD FAILED TOV THERE AND MCDUFFIE WAS REINSERTED. URINE TINGED. WANTS TO TRY AGAIN VOIDING ON OWN. WE WILL DO THAT TOMORROW. CONTINUE FLOMAX BID AND PROSCAR DAILY. OPTIONS IF FAILS TOV DISCUSSED AGAIN IN DETAILS, I.E TURP VS UROLIFT WITH PROS AND CONS, EXPECTATIONS, RISKS AND COMPLICATIONS. WE THEN WILL NEED OFF ASA AND LOVENOX WELL MEDICAL CLEARANCE FROM DR POTTS Final Diagnosis URINE RETENTION ANABELLA PORTER MD Jun 06, 2021 12:26
--- NOTE | 2021-06-06 13:00 | ST Cognitive Linguistic Eval ---
Speech Evaluation-General Medical Diagnosis ventricular tachycardia, R distal fibular fx Onset Date: May 19, 2021 Therapy Diagnosis Therapy Diagnosis: Intact Neurocognitive Skills Precautions Precautions: Fall Precautions/Isolations: Fall Prevention, Standard Precautions Referral Referring Physician: Dr. Jessika Maciel Reason for Referral: Evaluation/Treatment Medical History Pertinent Medical History: DM Current History The patient is a 76 year-old male with a past medical history of ventricular tachycardia, HTN, right ventricular systolic dysfunction, right ventricular dysplasia, and constipation, who presents to the acute rehabilitation unit following a fractured right tibia and fibula. Reviewed History: Yes Social History Current Living Status: Friend Speech PLF-Current Status Prior Level of Function The patient reported he was independent with ADL's prior to admission. The patient denied difficulties or concerns with his speech, language, cognition, or swallowing functions. Subjective The patient was lying in bed, awake and alert upon entrance to his room by the clinician. The patient greeted the clinician appropriately and was agreeable to participation in the cognitive linguistic assessment. Language Eval: Auditory Comprehends Simple Yes/No Ques: Functional Indent/Objects Multiple [place]: Functional Ident/Pics in Multiple [place]: Functional Follows 1-Step Commands: Functional Follows Complex Directions: Functional Follows General Conversations: Functional Language Eval: Verbal Language Completes Spontaneous Greeting: Functional Produces Auto, Serial Info: Functional Imitates Simple Words/Phrases: Functional Word Finding: Mild Requests Basic Needs: Functional States Basic Personal Info: Functional Expresses Complex Ideas: Functional Language Evaluation: Reading Follows Simple Written Direct: Functional Language Evaluation: Writing Writes to Simple Dictation: Functional Cognitive Patient Orientation The patient was independently oriented to self, location, month, day of week, date and year. Objective Cognitive Domain Attention: WNL Memory: WNL Problem Solving: Functional Executive Functions: WNL Visuospatial Skills: WNL Composite Severity Rating: WNL Clock Drawing Severity Rating: WNL Objective Formal/Standardized Tests [facility] Mental Status Exam (UMS) Results The patient demonstrated a score of +29/30 correlating to normal neurocognitive skills. Oral Motor/Speech Production The patient does not display dysarthria or apraxia of speech throughout the evaluation. The patient remained 100% intelligible in known and unknown contexts. Impression The patient demonstrated normal neurocognitive skills. The patient displayed one error throughout the word-finding task, naming 11 animals within one minute (WNL=15). Speech Patient Assess Expression of Ideas/Wants: Expression (4) Understanding Verbal Content: Understands (4) Brief Interview-Mental Status: Yes Repetition of Three Words: Three (3) Temporal Orientation: Year: Correct (3) Temporal Orientation: Month: Accurate within 5 days(2) Temporal Orientation: Day: Correct (1) Recall : Wear to say "Sock": Yes, no cue required (2) Recall : Color: Yes, no cue required (2) Recall : Bed: Yes, no cue required (2) Memory/Recall Ability: Current season, Staff names and faces, That he or she is in a hsp/hsp unit Speech-Plan Treatment Plan Speech Therapy Treatment Plan: Discontinue ST Treatment Duration: Jun 06, 2021 Frequency: 1 time per week Estimated Hrs Per Day: .5 hour per day Rehab Potential: Fair Pt/Family Agrees to Plan: Yes Safety Risks/Education Teaching Recipient: Patient Teaching Methods: Discussion Response to Teaching: Verbalize Understanding Education Topics Provided: Results of WILVER POC Time Speech Therapy Time In: 09:00 Speech Therapy Time Out: 09:30 Total Billed Time: 30 Billed Treatment Time 1, EBENEZER HELLER [facility] ST Jun 06, 2021 13:00
[2021-06-06 19:31] VITALS: BP 137/85
[2021-06-06] MEDS: ENOXAPARIN 40 MG/0.4 ML (LOVENOX) SYR SC SCH (20:38)
[2021-06-06] MEDS: eZETimibe 10 MG (ZETIA) TABLET PO SCH (20:38)
[2021-06-07] MEDS: ACETAMINOPHEN 325 MG TABLET PO PRN ×3 (00:26→22:45)
--- NOTE | 2021-06-07 07:08 | PM&R Progress Note ---
Subjective HPI/CC On Admission Date Seen by Provider: Jun 07, 2021 Time Seen by Provider: 09:30 Subjective/Events-last exam 06/07/2021: Pt is doing really well Proscar ordered Amiodaraone is now 200 mg Discontinue mendez and if pt can't urinate will need to put it back in Zetia will be given due to elevated liver enzymes from Statin therapy Review of Systems Musculoskeletal: foot pain Objective Exam Vital Signs Vital Signs Date Time Temp Pulse Resp B/P (MAP) Pulse Ox O2 Delivery O2 Flow Rate FiO2 06/07/21 20:15 Room Air 06/07/21 20:04 36.9 56 20 159/90 (113) 97 Capillary Refill : General Appearance: No Apparent Distress, WD/WN, Chronically ill HEENT: PERRL/EOMI, Normal ENT Inspection, Pharynx Normal Neck: Full Range of Motion, Normal Inspection, Non Tender, Supple, Carotid Bruit Respiratory: Chest Non Tender, Lungs Clear, Normal Breath Sounds, No Accessory Muscle Use, No Respiratory Distress Cardiovascular: Regular Rate, Rhythm, No Edema, No Gallop, No JVD, No Murmur, Normal Peripheral Pulses Gastrointestinal: Normal Bowel Sounds, No Organomegaly, No Pulsatile Mass, Non Tender, Soft Back: Normal Inspection, No CVA Tenderness, No Vertebral Tenderness Extremity: Normal Capillary Refill, Normal Inspection, Normal Range of Motion, Non Tender, No Calf Tenderness, No Pedal Edema Neurologic/Psychiatric: Alert, Oriented x3, No Motor/Sensory Deficits, Normal Mood/Affect, Motor Weakness Skin: Normal Color, Warm/Dry Lymphatic: No Adenopathy Results/Procedures Lab Patient resulted labs reviewed. FIM Transfers Therapy Code Descriptions/Definitions Functional [place] Measure: 0=Not Assessed/NA 4=Minimal Assistance 1=Total Assistance 5=Supervision or Setup 2=Maximal Assistance 6=Modified [place] 3=Moderate Assistance 7=Complete IndependenceSCALE: Activities may be completed with or without assistive devices. 9-Gledbgatqu-pilcxgf completes the activity by him/herself with no assistance from a helper. 5-Set-up or Clean-up Assistance-helper sets up or cleans up; patient completes activity. [place] assists only prior to or following the activity. 4-Supervision or Touching Assistance-helper provides verbal cues and/or touching/steadying and/or contact guard assistance as patient completes activity. Assistance may be provided throughout the activity or intermittently. 3-Partial/Moderate Assistance-helper does LESS THAN HALF the effort. [place] lifts, holds or supports trunk or limbs, but provides less than half the effort. 2-Substantial/Maximal Assistance-helper does MORE THAN HALF the effort. [place] lifts or holds trunk or limbs and provides more than half the effort. 1-Dyeltjyvn-jzarvv does ALL the effort. Patient does none of the effort to complete the activity. Or, the assistance of 2 or more helpers is required for the patient to complete the activity. If activity was not attempted, code reason: 7-Patient Refused. 9-Not Applicable-not attempted and the patient did not perform the activity before the current illness, exacerbation or injury. 10-Not Attempted due to Environmental Limitations-(lack of equipment, weather restraints, etc.). 88-Not Attempted due to Medical Conditions or Safety Concerns. Roll Left to Right (QC): 5 Sit to Lying (QC): 4 Sit to Stand (QC): 3 Chair/Muv-bq-Wxzdz Xfer(QC): 3 Car Transfer (QC): 3 Gait Training Does the Patient Walk?: Yes Walk 10 feet (QC): 4 Walk 50 ft with 2 Turns(QC): 4 Walk 150 ft (QC): 4 Walking 10ft/uneven surface-QC: 4 Gait Assistive Device: FWW Wheelchair Training Does the Pt Use a Wheelchair?: No Wheel 50 ft with 2 turns (QC): 9 Wheel 150 ft (QC): 9 Type of Wheelchair: N/A Stair Training 1 Step (curb) (QC): 4 4 Steps (QC): 88 12 Steps (QC): 88 Balance Picking up an Object (QC): 4 ADL-Treatment Eating (QC): 6 Oral Hygiene (QC): 5 (seated) Shower/Bathe Self (QC): 3 (min A with drying buttocks in stand) Upper Body Dressing (QC): 5 Lower Body Dressing (QC): 3 (Min A in stand for pant hike) On/Off Footwear (QC): 2 (Pt able doff L gripper sock & tedhose, assist to don. Pt required max A to doff and don R CAM boot) Toileting Hygiene (QC): 3 (Min A ) Assessment/Plan Assessment and Plan Assess & Plan/Chief Complaint Assessment: R distal fibular fracture 3 weeks ago now partial weight bearing per Dr Albright 06/06/21 NSTEMI, s/p cardioversion on 05/19 Ventricular tachycardia recurrent with hypotension prompting transfer to ICU on 05/30/2021 on lidocaine drip and transferred to [place] s/p ablation Cardiogenic shock, resolved T2DM Arrhythmogenic Right Ventricular Dysplasia NEVAEH, resolved Cerebral palsy history BPH DVT risk Urinary retention requiring mendez cath reinsertion Chronic Constipation s/p UTI Enterococcus placed on Vanco empirically 05/26/2021 then changed to Amoxil after sensitivities completed last admit Anemia of chronic disease Elevated liver enzymes Anemia Plan: Rehab protocol Pain control Partial weight bearing Urology consult Dr Albright consult Dr Farrar consult Check TSH to labs 06/07/2021: Monitor liver function Appreciate cardiology Appreciate urology Appreciate orthopedics (1) Ventricular tachycardia Status: Acute Assessment & Plan: He is now status post ablation for the ventricular tachycardia. 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 He is now on a loading dose of amiodarone. (2) Arrhythmogenic right ventricular dysplasia Status: Acute Assessment & Plan: We will continue with the amiodarone. (3) Right heart failure Assessment & Plan: He has significant right ventricular enlargement and dysfunction. At the present time he does not have any overt signs of right heart failure but he could develop issues with this in the future. Once he is d ischarged home, I will consider an outpatient referral to the advanced heart failure team at [facility]. Qualifiers: Heart failure chronicity: chronic Qualified Codes: I50.812 - Chronic right heart failure (4) Primary hypertension Assessment & Plan: He is on metoprolol tartrate and blood pressures are intermittently elevated. If this persists, I recommend increasing the dose of metoprolol. I would avoid amlodipine in light of his severe right ventricular dysfunction. (5) Mixed hyperlipidemia Assessment & Plan: Resume statin medication. I will ask pharmacy to restart what he was taking before. VALERIY POTTS DO Jun 07, 2021 07:08
--- NOTE | 2021-06-07 07:08 | Individualized Plan of Care ---
Individualized Plan of Care Rehab Nursing IPOC Order Admission Date Jun 05, 2021 at 16:41 Current Orders Orders Admission Order(Inpt,Obs,Sdc) (06/05/21 13:00) Vital Signs: Per Unit Policy ( (06/05/21 13:00) Rob Huff (06/05/21 13:00) Sequential Compression Device (06/05/21 13:00) Agriculture Intern-Inpt Rehab Con (06/05/21 13:00) Rehab Nursing Orders-Ipoc (06/05/21 13:00) Physical Therapy Rehab Orders (06/05/21 13:00) Occupational Therapy Rehab Ord (06/05/21 13:00) Speech Therapy Rehab Orders (06/05/21 13:00) Cbc With Automated Diff (06/06/21 06:00) Comprehensive Metabolic Panel (06/06/21 06:00) Precautions (Aru) (06/05/21 13:00) Weekly Weight WEEK (06/05/21 13:00) Rehab-Intensity Of Therapy (06/05/21 13:00) Initiate Admission Nursing Pro .admission (06/05/21 13:00) Alprazolam Tablet (Xanax Tablet) (06/05/21 13:00) Calcium Carbonate Chew Tablet (Antacid C (06/05/21 13:00) Diphenhydramine Tablet (Benadryl Tablet) (06/05/21 13:00) Docusate Sodium Capsule (Colace Capsule) (06/05/21 21:00) Docusate Sodium Capsule (Colace Capsule) (06/05/21 13:00) Bisacodyl Suppository (Dulcolax Supposit (06/05/21 13:00) Lactulose Oral Solution (Enulose Oral So (06/05/21 13:00) Na Phos/Na Biphos Enema (Fleet Enema Natan (06/05/21 13:00) Guaifenesin/Codeine Syrup (Robitussin Ac (06/05/21 13:00) Loperamide Tablet (Imodium Tablet) (06/05/21 13:00) Melatonin Tablet (Melatonin Tablet) (06/05/21 13:00) Polyethylene Glycol Powder Pkt (Miralax (4/4/22 21:00) Ondansetron Oral Dissolve Tab (Zofran (06/05/21 13:00) Senna S Tablet (Senokot S Tablet) (06/05/21 21:00) Acetaminophen Tablet/Caplet (Tylenol T (06/05/21 13:00) Code/Resuscitation (06/05/21 13:00) Initiate Admission Nursing Pro .admission (06/05/21 13:00) Consult Cardiology (06/05/21 13:00) Consult Orthopedic Surgery (06/05/21 13:00) Ankle, Right, 3 Views (06/05/21 13:02) Acetaminophen Tablet (Tylenol Tablet) (06/05/21 13:15) Albuterol Pre-Mix Nebs (Rt) (Proventil (06/05/21 13:15) Allopurinol Tablet (Zyloprim Tablet) (06/06/21 09:00) Amiodarone Tablet (Cordarone Tablet) (06/05/21 21:00) Aspirin Chewable Tablet (Baby Aspirin Ch (06/06/21 09:00) Cyanocobalamin Tablet (Vitamin B-12 Tabl (06/06/21 09:00) Famotidine Tablet (Pepcid Tablet) (06/06/21 09:00) Metoprolol Tartrate (Ir) Tab (Lopressor (06/05/21 21:00) Therapeutic Multivitamin Tab (Vitamins, (06/06/21 09:00) Tamsulosin Capsule (Flomax Capsule) (06/06/21 09:00) (Nf) Antiox #11/Om3/Dha/Epa/Lut/Salvador (Eye (06/06/21 09:00) Ascorbic Acid Tablet (Vitamin C Tablet) (06/06/21 09:00) Enoxaparin Injection (Lovenox Injection (06/05/21 13:15) Consult Urology (06/05/21 13:05) Admission Arrival Bed Request (06/05/21 16:41) Heart Healthy (06/05/21 Dinner) Enoxaparin Injection (Lovenox Injection (06/05/21 21:00) Cyclobenzaprine Tablet (Flexeril Tablet) (06/05/21 21:00) Acetaminophen Tablet (Tylenol Tablet) (06/05/21 16:54) Amiodarone Tablet (Cordarone Tablet) (06/08/21 09:00) Nursing Communication (Order) (06/05/21 18:50) Ekg Tracing (06/06/21 06:00) Weight Bearing Restrictions (06/06/21 07:55) Physical Therapy Order (06/06/21 07:55) Thyroid Stimulating Hormone (06/06/21 09:13) Follow-Up Appointment (06/06/21 09:59) Patient Visit (06/06/21 ) Speech Sound Lang Comp (06/06/21 ) Treat. Speech/Lang/Voice (06/06/21 ) Finasteride Tablet (Proscar Tablet) (06/06/21 12:15) Finasteride Tablet (Proscar Tablet) (06/07/21 09:00) Catheter(Urinary) Discontinue (06/06/21 12:27) Pharmacy Consult/Message (06/06/21 13:41) Patient Visit (06/06/21 ) Pt Eval Low Complexity (06/06/21 ) Functional Activities, Ea 15 (06/06/21 ) Ezetimibe Tablet (Zetia Tablet) (06/06/21 21:00) Functional Activities, Ea 15 (06/06/21 ) Amiodarone Tablet (Cordarone Tablet) (06/07/21 09:30) Patient Visit (06/07/21 ) Exercise Therap, Ea 15 Min (06/07/21 ) Functional Activities, Ea 15 (06/07/21 ) Patient Visit (06/07/21 ) Exercise Therap, Ea 15 Min (06/07/21 ) Gait Training, Ea 15 Min (06/07/21 ) Lidocaine 2% (Urojet) (Xylocaine Urojet) (06/07/21 11:54) Metoprolol Tartrate (Ir) Tab (Lopressor (06/07/21 21:00) Metoprolol Tartrate (Ir) Tab (Lopressor (06/07/21 12:15) Nursing Communication (Order) (06/07/21 15:19) Rehab Nursing Orders: Ongoing Assess. of Cognitive Status, Ongoing Assess. of Function Status, Bladder Management, Bladder Scan, Bladder Training, Bowel Management, Bowel Training, Disease Management & Educaiton, DVT Prophylaxis, Fall Prevention, Fluid/Electrolyte/Nutrition Mgmt, Infection Prevention, Medic ation Management & Education, Management of Risks & Complications, Management of Skin Intergrity, Nutrition Management, Pain Management, Patient/Family Support, Safety Management, Wound Management Intensity of Therapy to be met Patient to be seen: Min.3h per day/5 of 7d PT IPOC Problem List: Activity Tolerance, Functional Strength, Safety, Balance, Gait, Transfer, Bed Mobility, ROM Treatment Plan: Continue Plan of Care Bed Mobility, Education, Functional Activity Mallika, Functional Strength, Group Therapy, Gait, Safety, Therapeutic Exercise, Transfers Treatment Duration: Jun 20, 2021 Frequency: At least 5 of 7 days/Wk (IRF) Estimated Hrs Per Day: 1.5 hours per day OT IPOC Problems: Decreased Activ Tolerance, Decreased Safety Aware, Decreased UE Strength, Impaired Funct Balance, Impaired I ADL's, Impaired Self-Care Skills OT Treatment, Training and Edu: Yes Plan of Care: ADL Retraining, Functional Mobility, Group Exercise/Act as Ind, UE Funct Exercise/Act Treatment Duration: July 07, 2021 Frequency: At least 5 of 7 days/Wk (IRF) Estimated Hrs Per Day: 1.[address] IPOC Speech Therapy Treatment Plan: Discontinue ST Treatment Duration: Jun 06, 2021 Frequency: 1 time per week Estimated Hrs Per Day: .5 hour per day Agriculture Intern/Case Mgmt Agriculture Intern/Case Managemen: Discharge Planning Dietitian/Vacation Sales Advisor Dietitian/Vacation Sales Advisor to monitor nutritional status and make changes and/or recommendations as needed and work with speech pathology on dietary upgrades as the occur. Physician IPOC Medical Issues being managed closely and that require the 24 hour availability of a physician: Recent ablation for ventricular tachycardia patient high risk for any decompensation from cardiac arrhythmia in addition to urinary retention from neurogenic bladder will require close monitoring Medical Issues: Bowel/Bladder Function, DVT Prophylaxis, Falls Precautions, Fluid/Electrolyte/Nutrition Balance, Infection Protection, Pain Management, Weight Bearing Precautions Brief Synthesis of Preadmission Screen, Post-Admission Evaluation, and Therapy Evaluations: PT and OT will focus on regaining function with now partial weightbearing of right fibular fracture with use of assistive devices in order to regain enough function to return back home Medical Prognosis: Good Anticipated Length of Stay: 7 days VALERIY POTTS DO Jun 07, 2021 07:08
[2021-06-07 07:55] VITALS: BP 153/79
--- NOTE | 2021-06-07 08:19 | Occupational Ther Daily Note ---
OT Current Status-Daily Note Subjective Pt in bed, agreeable to OT Tx. Report 3/10 pain in R foot during tx. Mental Status/Objective Patient Orientation: Person, Place, Situation ADL-Treatment Therapy Code Descriptions/Definitions Functional [place] Measure: 0=Not Assessed/NA 4=Minimal Assistance 1=Total Assistance 5=Supervision or Setup 2=Maximal Assistance 6=Modified [place] 3=Moderate Assistance 7=Complete IndependenceSCALE: Activities may be completed with or without assistive devices. 9-Twicsgrovd-uphpimz completes the activity by him/herself with no assistance from a helper. 5-Set-up or Clean-up Assistance-helper sets up or cleans up; patient completes activity. [place] assists only prior to or following the activity. 4-Supervision or Touching Assistance-helper provides verbal cues and/or touching/steadying and/or contact guard assistance as patient completes activity. Assistance may be provided throughout the activity or intermittently. 3-Partial/Moderate Assistance-helper does LESS THAN HALF the effort. [place] lifts, holds or supports trunk or limbs, but provides less than half the effort. 2-Substantial/Maximal Assistance-helper does MORE THAN HALF the effort. [place] lifts or holds trunk or limbs and provides more than half the effort. 2-Elkbqltvu-mfcjko does ALL the effort. Patient does none of the effort to complete the activity. Or, the assistance of 2 or more helpers is required for the patient to complete the activity. If activity was not attempted, code reason: 7-Patient Refused. 9-Not Applicable-not attempted and the patient did not perform the activity before the current illness, exacerbation or injury. 10-Not Attempted due to Environmental Limitations-(lack of equipment, weather restraints, etc.). 88-Not Attempted due to Medical Conditions or Safety Concerns. Oral Hygiene (QC): 6 (IND seated at sink.) Other Treatment Pt laying in bed, transferred supine to sit EOB, SBA. Sit to stand from EOB, min A. Pt used FWW to transfer to chair at bathroom sink. Pt completed oral care independent, seated. He then used FWW to perform functional mobility to therapy gym, mod A sit to stand from chair without arm rests, then CGA with FWW. OT tx with focus on increasing BUE strength and activity tolerance. Pt completed arm bike x15 mins, 20 Watt resistance, 1 rest break during task. Pt placed/removed, x100, 1" pegs into/from foam pegboard, alternating hands, 2lb wrist weights bilaterally. Pt took rest breaks as needed. Pt then removed beads from heavy resistance theraputty, able to locate all beads without cues. OT/PT cotreat due to skill of 2 clinicals required which a clinical rehab liaison could not perform in order to coordinate UE/LEs, decrease fall risk, focus on higher level balance tasks, maintain PWB RLE, and due to pt's limitations in strength, mobility/transfers, and safety. OT focused on UE placement, cues for sequencing/safety, and ADLs, PT focused on LE placement, gross overall movements, transfers/mobility. Pt stood at FWW, hitting balloon back and forth with OT, requiring reaching in all planes BUEs, PT assisted with balance as needed. Pt completed x3 rounds, hitting with RUE (LUE support on walker), LUE (RUE support on walker) & BUEs (with opposite UE support on walker). Pt lost his balance a couple of times during tx, sitting back into the chair. Post tx, pt in therapy gym with PT, all needs met. Education OT Patient Education: Correct positioning, Energy conservation, Modified ADL techniques, Progress toward Goal/Update tx plan, Purpose of tx/functional activities Teaching Recipient: Patient Teaching Methods: Discussion Response to Teaching: Verbalize Understanding OT Short Term Goals Short Term Goals Time Frame: Jun 21, 2021 Shower/bathe self: 5 Lower body dressin Putting on/taking off footwear: 5 OT Care Home Goals Care Home Goals Time Frame: July 07, 2021 Eating (QC): 6 Oral Hygiene (QC): 6 Toileting Hygiene (QC): 6 Shower/Bathe Self (QC): 6 Upper Body Dressing (QC): 6 Lower Body Dressing (QC): 6 On/Off Footwear (QC): 6 1=Demonstrate adherence to instructed precautions during ADL tasks. 2=Patient will verbalize/demonstrate understanding of assistive devices/modifications for ADL. 3=Patient will improve strength/tolerance for activity to enable patient to perform ADL's. OT Education/Plan Problem List/Assessment Assessment: Decreased Activ Tolerance, Decreased UE Strength, Impaired Funct Balance, Impaired I ADL's, Impaired Self-Care Skills Discharge Recommendations Plan/Recommendations: Continue POC Treatment Plan/Plan of Care Patient would benefit from OT for education, treatment and training to promote independence in ADL's, mobility, safety and/or upper extremity function for ADL's. Plan of Care: ADL Retraining, Functional Mobility, Group Exercise/Act as Ind, UE Funct Exercise/Act Treatment Duration: July 07, 2021 Frequency: At least 5 of 7 days/Wk (IRF) Estimated Hrs Per Day: 1.5 hours per day Agreement: Yes Rehab Potential: Fair Time/GCodes Start Time: 08:00 Stop Time: 09:30 Total Time Billed (hr/min): 90 Billed Treatment Time 1, ADL (15'), EX (15'), FA 4 (60') JOSY RAO OT Jun 07, 2021 08:19
--- NOTE | 2021-06-07 09:19 | Progress Note - Ortho ---
Progress Note Subjective Date of Exam 06/07/21 Chief Complaint Fracture right distal fibula HPI/Events since last exam Mr. Thomas is now 19 days since fracture of his right distal fibula. His injury occurred on 05/19/2021. I saw him while he was in the hospital in consultation. He is presently in a cam walker. He had an x-ray on Saturday. Review of Systems Reviewed and no additions or changes Allergies: Uncoded Allergies: UNKNOWN CHOLESTEROL MED. (Allergy, Unknown, 02/12/18) Home Meds Reported Medications Amiodarone HCl (Amiodarone HCl) 200 Mg Tablet, 200 MG PO DAILY, TAB START TAKING ON 06-08-2021 06/05/21 Metoprolol Tartrate (Metoprolol Tartrate) 25 Mg Tablet, 25 MG PO BID, TAB 06/05/21 Famotidine (Famotidine) 20 Mg Tablet, 20 MG PO DAILY, TAB 06/05/21 Amiodarone HCl (Amiodarone HCl) 200 Mg Tablet, 400 MG PO BID, TAB TAKES 2 (200MG) TABS- TAKE UNTIL 06-07-2021 (THEN START TAKING 1 TAB DAILY) 06/05/21 Aspirin (Aspirin) 81 Mg Tab.chew, 81 MG PO DAILY, TAB 06/05/21 Tamsulosin HCl (Flomax) 0.4 Mg Cap, 0.4 MG PO DAILY, CAP 05/19/21 Multivitamin with Minerals (Multivitamins with Minerals) 1 Each Tablet, 1 EACH PO DAILY, TAB 05/19/21 Antiox #11/Om3/Dha/Epa/Lut/Salvador (Eye Health Adult 50+ Softgel) 1 Each Capsule, 1 EACH PO DAILY, CAP 05/19/21 Cyclobenzaprine HCl (Cyclobenzaprine HCl) 10 Mg Tablet, 10 MG PO HS PRN for MUSCLE SPASMS, TAB 05/19/21 Cyanocobalamin (Vitamin B-12) (Vitamin B-12) 1,000 Mcg Tablet, 1000 MCG PO DAILY, TAB 05/19/21 Allopurinol (Allopurinol) 100 Mg Tablet, 100 MG PO DAILY, TAB 05/19/21 Albuterol Sulfate (PROAIR HFA) 1 Puff Puff, 2 PUFF IH QID PRN for SHORTNESS OF BREATH, EA 05/19/21 Acetaminophen (Tylenol Extra Strength) 500 Mg Tablet, 1000 MG PO Q8H PRN for PAIN-MILD (1-4) OR TEMPATURE, TAB 05/19/21 Ascorbate Calcium (Vitamin C) 500 Mg Tablet, 500 MG PO DAILY, TAB 05/19/21 Discontinued Reported Medications Lisinopril (Lisinopril) 40 Mg Tablet, 40 MG PO DAILY, TAB 05/19/21 Hydrochlorothiazide (Hydrochlorothiazide) 25 Mg Tablet, 12.5 MG PO, TAB TAKES OF A 25MG TAB 05/19/21 Atorvastatin Calcium (Atorvastatin Calcium) 80 Mg Tablet, 40 MG PO HS, TAB TAKES OF A 40MG TAB 05/19/21 Amlodipine Besylate (Amlodipine Besylate) 5 Mg Tablet, 2.5 MG PO 1200, TAB TAKES OF A 5MG TAB 05/19/21 Objective Exam Constitutional: [] HEENT: [] Neck: [] Cardiovascular: [] Respiratory: [] Gastrointestinal: [] Genitourinary: [] Skin: [] Back/Spine: [] Extremities: [He is presently in a cam walker. I saw him while he was in the gym.] Neurologic: [] Psychiatric: [] Hematologic/lymphatic/immunologic: [] Vital Signs Vital Signs Date Time Temp Pulse Resp B/P (MAP) Pulse Ox O2 Delivery O2 Flow Rate FiO2 06/07/21 07:55 36.4 68 18 153/79 (103) 94 Room Air 06/06/21 20:45 Room Air 06/06/21 19:31 36.9 63 16 137/85 (102) 97 Room Air I & O 06/07/21 07:00 Intake Total 1100 ml Output Total 3625 ml Balance -2525 ml Imaging X-rays show minimal lateral displacement of the distal fibular fragment. No widening of the syndesmosis. No widening of the mortise medially. No asymmetry of the mortise. No fracture medially. Early callus is noted around the fracture site Assessment and Plan Assessment Doing well at 19 days post injury Problem List Fracture right distal fibula Plan Continue with the cam walker partial weightbearing on the right. Repeat x-rays in 2 weeks. If everything looks good then he can go to full weightbearing in the cam walker. Final Diagonsis Fracture right distal fibula Level of the visit: Level 3 ТАТЬЯНА SMITH MD Jun 07, 2021 09:19
--- NOTE | 2021-06-07 09:26 | Cardiology Progress Note ---
Progress Note-Cardiology Events since last exam Date Seen by Provider: Jun 07, 2021 Time Seen by Provider: 09:25 Events since last exam I am following him due to ventricular tachycardia now status post ablation. No signs of recurrent ventricular tachycardia. I spoke to the self contained behavior unit teacher at [facility] who wants him taking amiodarone 200 mg daily. He has been up working with physical therapy. He is partial weightbearing on his right leg. He denies chest discomfort, dyspnea, palpitations, or syncope. He has mild bilateral lower extremity edema. Certain portions of this document may have been dictated utilizing voice recognition technology. Inherent to this technology, typographical and grammatical errors may exist. As much as I am diligent to identify and correct these mistakes, some errors may remain in the document. Vitals Last set of Vitals Signs Vital Signs 06/07/21 06/07/21 07:55 09:00 Temp 36.4 Pulse 68 Resp 18 B/P (MAP) 153/79 (103) Pulse Ox 94 O2 Delivery Room Air Exam Vital Signs Vital Signs Date Time Temp Pulse Resp B/P (MAP) Pulse Ox O2 Delivery O2 Flow Rate FiO2 06/07/21 09:00 Room Air 06/07/21 07:55 36.4 68 18 153/79 (103) 94 Physical Exam General: Alert. No acute distress. Eye: No xanthelasma. HENT: Normocephalic. Neck: Jugular venous pressure does not appear elevated. Respiratory: Lungs are clear to auscultation. Respirations are non-labored. Breath sounds are equal. Symmetrical chest wall expansion. Cardiovascular: Normal rate. Regular rhythm. No murmur. No gallop. Trace bilateral pretibial edema. Gastrointestinal: Soft. Normal bowel sounds. Skin: Warm. Dry. Neurologic: Alert and oriented to person, place, time. Cranial nerves 3-11 grossly intact. Psychiatric: Cooperative. Appropriate mood & affect. Diagnosis/Problems Diagnosis/Problems (1) Ventricular tachycardia Status: Acute Assessment & Plan: He is now status post ablation for the ventricular tachycardia. He has a MANAGER PROPERTY-D device in place. He continue on amiodarone amiodarone 200 mg daily. He will need long-term monitoring for screening for development of side effects.. (2) Arrhythmogenic right ventricular dysplasia Status: Acute Assessment & Plan: We will continue with the amiodarone. He has a defibrillator in place. (3) Right heart failure Assessment & Plan: He has significant right ventricular enlargement and dysfunction. At the present time he does not have any overt signs of right heart failure but he could develop issues with this in the future. Once he is discharged home, I will consider an outpatient referral to the advanced heart failure team at [facility]. (4) Primary hypertension Assessment & Plan: He is on metoprolol tartrate and blood pressures are intermittently elevated. I will increase the dose of metoprolol. (5) Mixed hyperlipidemia Assessment & Plan: I have started him on ezetimibe. He had some sort of reaction to statin medications in the past. Problem Qualifiers (1) Right heart failure: Heart failure chronicity: chronic Qualified Codes: I50.812 - Chronic right heart failure JOSEFINA JUNE JR, MD Jun 07, 2021 09:26
--- NOTE | 2021-06-07 09:55 | Physical Therapy Daily Note ---
PT Daily Note-Current Subjective Patient was co-treated with OT today for 30min due to balance deficits, weakness, fall risk, and safety. Pain Numeric Pain Scale: 2 Location: Right Location Body Site: Ankle Mental Status Patient Orientation: Person, Place, Situation Transfers SCALE: Activities may be completed with or without assistive devices. 2-Xkudicfpuq-pcarzrc completes the activity by him/herself with no assistance from a helper. 5-Set-up or Clean-up Assistance-helper sets up or cleans up; patient completes activity. [place] assists only prior to or following the activity. 4-Supervision or Touching Assistance-helper provides verbal cues and/or touching/steadying and/or contact guard assistance as patient completes activity. Assistance may be provided throughout the activity or intermittently. 3-Partial/Moderate Assistance-helper does LESS THAN HALF the effort. [place] lifts, holds or supports trunk or limbs, but provides less than half the effort. 2-Substantial/Maximal Assistance-helper does MORE THAN HALF the effort. [place] lifts or holds trunk or limbs and provides more than half the effort. 3-Fpxcfvxxq-ojjdwm does ALL the effort. Patient does none of the effort to complete the activity. Or, the assistance of 2 or more helpers is required for the patient to complete the activity. If activity was not attempted, code reason: 7-Patient Refused. 9-Not Applicable-not attempted and the patient did not perform the activity before the current illness, exacerbation or injury. 10-Not Attempted due to Environmental Limitations-(lack of equipment, weather restraints, etc.). 88-Not Attempted due to Medical Conditions or Safety Concerns. Sit to Lying (QC): 5 Sit to Stand (QC): 4 Weight Bearing Right Lower Extremity: Right Partial Weight Bearing Left Lower Extremity: Left Full Weight Bearing Gait Training Does the Patient Walk?: Yes Distance: 75', 150', 200' Walk 10 feet (QC): 4 Walk 50 ft with 2 Turns(QC): 4 Walk 150 ft (QC): 4 Gait Assistive Device: FWW slow ambulation, patient is mostly compliant with PWB on right leg Wheelchair Training Does the Pt Use a Wheelchair?: No Type of Wheelchair: N/A Exercises Standing: Hamstring curls, 3 way Ex=Flex, Abd, Ext Standing Reps: 10 (2 sets) standing LAQ Treatments Standing balloon toss activity (with OT) LE strengthening, ambulation, mobility. Assessment Current Status: Fair Progress Patient was able to tolerate longer bouts of walking before needing a rest break. Patient lost balance a few times during the balloon toss activity. Patient still demonstrates weakness and activity intolerance as he needed to take several rest breaks during standing exercises. Patient was left in bed, with call light, and tray, and all needs met. PT and OT treated for 30min -> PT treatment for 30min. PT Short Term Goals Short Term Goals Time Frame: Jun 13, 2021 Roll Left & Right: 6 Sit to lyin Lying to sitting on side of be: 6 Sit to stand: 4 Chair/ygl-sj-wbmym transfer: 4 Walk 10 feet: 4 Walk 50 feet with two turns: 4 Walk 150 feet: 4 PT Dot Compliance Coordinator Goals Mcfp Goals PT Dot Compliance Coordinator Goals Time Frame: Jun 27, 2021 Roll Left & Right (QC): 6 Sit to Lying (QC): 6 Lying-Sitting on Side/Bed(QC): 6 Sit to Stand (QC): 6 Chair/Unk-yk-Ziana Xfer(QC): 6 Toilet Transfer (QC): 6 Car Transfer (QC): 6 Does the Patient Walk: Yes Walk 10 feet (QC): 6 Walk 50ft with 2 Turns (QC): 6 Walk 150 ft (QC): 6 Walking 10ft on Uneven Surface: 6 1 Step (curb) (QC): 6 4 Steps (QC): 9 12 Steps (QC): 9 Picking up an Object (QC): 6 Does the Pt use WC or Scooter?: No Wheel 50 feet with 2 turns (QC: 9 Type: N/A Wheel 150 feet: 9 Type: N/A PT Plan Problem List Problem List: Activity Tolerance, Functional Strength, Safety, Balance, Gait, Transfer, Bed Mobility, ROM Treatment/Plan Treatment Plan: Continue Plan of Care Treatment Plan: Bed Mobility, Education, Functional Activity Mallika, Functional Strength, Group Therapy, Gait, Safety, Therapeutic Exercise, Transfers Treatment Duration: Jun 20, 2021 Frequency: At least 5 of 7 days/Wk (IRF) Estimated Hrs Per Day: 1.5 hours per day Patient and/or Family Agrees t: Yes Safety Risks/Education Patient Education: Gait Training, Transfer Techniques, Reviewed Precautions, Correct Positioning, Safety Issues Teaching Recipient: Patient Teaching Methods: Discussion Response to Teaching: Verbalize Understanding Time/GCodes Time In: 0800 Time Out: 09 Total Billed Treatment Time: 60 Total Billed Treatment 1 visit FA 30min EX 30min CHARLEE VELASCO PT Jun 07, 2021 09:54
[2021-06-07] MEDS: DOCUSATE SODIUM 100 MG (COLACE) CAP PO SCH ×2 (10:01→20:04)
[2021-06-07] MEDS: CYANOCOBALAMIN 1,000 MCG (VITAMIN B-12) TABLET PO SCH (10:01)
[2021-06-07] MEDS: TAMSULOSIN 0.4 MG (FLOMAX) CAP PO SCH (10:02)
[2021-06-07] MEDS: ASPIRIN 81 MG CHEW (CHILDREN'S ASA) PO SCH (10:02)
[2021-06-07] MEDS: polyethylene glycoL POWDER 17 GM (MIRALAX) PACK PO SCH ×3 (10:02→20:04)
[2021-06-07] MEDS: ASCORBIC ACID (VIT C) 500 MG TABLET PO SCH (10:03)
[2021-06-07] MEDS: AMIODARONE 200 MG (CORDARONE) TAB PO SCH (10:03)
[2021-06-07] MEDS: MULTIVIT W/MINERALS TAB (THERAGRAN M) PO SCH (10:04)
[2021-06-07] MEDS: SENNA W/DOCUSATE (SENOKOT S) TABLET PO SCH ×2 (10:04→20:03)
[2021-06-07] MEDS: ALLOPURINOL 100 MG (ZYLOPRIM) TAB PO SCH (10:08)
[2021-06-07] MEDS: FAMOTIDINE 20 MG (PEPCID) TABLET PO SCH (10:08)
[2021-06-07] MEDS: meTOprolol TARTRATE 25 MG (LOPRESSOR) TABLET PO SCH ×2 (10:08→20:04)
[2021-06-07] MEDS: FINASTERIDE (PROSCAR) 5 MG TAB PO SCH (10:08)
--- NOTE | 2021-06-07 11:24 | Progress Note - Urology ---
Progress Note-Urology Progress Notes/Assess & Plan Progress/Assessment & Plan TOV TODAY Final Diagnosis RETENTION ANABELLA PORTER MD Jun 07, 2021 11:24
--- NOTE | 2021-06-07 11:30 | Physical Therapy Daily Note ---
PT Daily Note-Current Subjective Patient was in bed and compliant to start treatment. Pain Numeric Pain Scale: 5-Moderate Pain Location: Right Location Body Site: Ankle Mental Status Patient Orientation: Person, Place, Situation Transfers SCALE: Activities may be completed with or without assistive devices. 9-Rosdvkgtok-mgvxiqn completes the activity by him/herself with no assistance from a helper. 5-Set-up or Clean-up Assistance-helper sets up or cleans up; patient completes activity. [place] assists only prior to or following the activity. 4-Supervision or Touching Assistance-helper provides verbal cues and/or touching/steadying and/or contact guard assistance as patient completes activity. Assistance may be provided throughout the activity or intermittently. 3-Partial/Moderate Assistance-helper does LESS THAN HALF the effort. [place] lifts, holds or supports trunk or limbs, but provides less than half the effort. 2-Substantial/Maximal Assistance-helper does MORE THAN HALF the effort. [place] lifts or holds trunk or limbs and provides more than half the effort. 1-Pabhdlqxi-kzmxqj does ALL the effort. Patient does none of the effort to complete the activity. Or, the assistance of 2 or more helpers is required for the patient to complete the activity. If activity was not attempted, code reason: 7-Patient Refused. 9-Not Applicable-not attempted and the patient did not perform the activity before the current illness, exacerbation or injury. 10-Not Attempted due to Environmental Limitations-(lack of equipment, weather restraints, etc.). 88-Not Attempted due to Medical Conditions or Safety Concerns. Lying to Sitting/Side of Bed(Q: 5 Sit to Stand (QC): 3 Weight Bearing Right Lower Extremity: Right Partial Weight Bearing Left Lower Extremity: Left Full Weight Bearing Gait Training Does the Patient Walk?: Yes Distance: 100'x2 Walk 10 feet (QC): 4 Walk 50 ft with 2 Turns(QC): 4 Gait Assistive Device: FWW Exercises NuStep Minutes: 15 NuStep Workload: 5 Treatments Ambulation, LE strengthening Assessment Current Status: Fair Progress Patient tolerated ambulation and Nustep without needing to rest. Patient was le ft in bed with call light, tray, and all needs met. PT Short Term Goals Short Term Goals Time Frame: Jun 13, 2021 Roll Left & Right: 6 Sit to lyin Lying to sitting on side of be: 6 Sit to stand: 4 Chair/fxu-cx-oxfon transfer: 4 Walk 10 feet: 4 Walk 50 feet with two turns: 4 Walk 150 feet: 4 PT Fdc Goals Petroleum Inspector Supervisor Goals PT Fdc Goals Time Frame: Jun 27, 2021 Roll Left & Right (QC): 6 Sit to Lying (QC): 6 Lying-Sitting on Side/Bed(QC): 6 Sit to Stand (QC): 6 Chair/Mrm-rg-Qudtp Xfer(QC): 6 Toilet Transfer (QC): 6 Car Transfer (QC): 6 Does the Patient Walk: Yes Walk 10 feet (QC): 6 Walk 50ft with 2 Turns (QC): 6 Walk 150 ft (QC): 6 Walking 10ft on Uneven Surface: 6 1 Step (curb) (QC): 6 4 Steps (QC): 9 12 Steps (QC): 9 Picking up an Object (QC): 6 Does the Pt use WC or Scooter?: No Wheel 50 feet with 2 turns (QC: 9 Type: N/A Wheel 150 feet: 9 Type: N/A PT Plan Problem List Problem List: Activity Tolerance, Functional Strength, Safety, Balance, Gait, Transfer, Bed Mobility, ROM Treatment/Plan Treatment Plan: Continue Plan of Care Treatment Plan: Bed Mobility, Education, Functional Activity Mallika, Functional Strength, Group Therapy, Gait, Safety, Therapeutic Exercise, Transfers Treatment Duration: Jun 20, 2021 Frequency: At least 5 of 7 days/Wk (IRF) Estimated Hrs Per Day: 1.5 hours per day Patient and/or Family Agrees t: Yes Safety Risks/Education Patient Education: Gait Training, Transfer Techniques, Reviewed Precautions, Correct Positioning, Safety Issues Teaching Recipient: Patient Teaching Methods: Discussion Response to Teaching: Verbalize Understanding Time/GCodes Time In: 1045 Time Out: 1115 Total Billed Treatment Time: 30 Total Billed Treatment 1 visit EX 15min GT 15min CHARLEE VELASCO PT Jun 07, 2021 11:30
[2021-06-07] MEDS ORDERED: LIDOCAINE UROJET 2% GEL 10 ML PKG ONE (11:54)
[2021-06-07] MEDS ORDERED: meTOprolol TARTRATE 25 MG (LOPRESSOR) TABLET PO NR (12:15)
[2021-06-07 13:34] VITALS: BP 147/75
[2021-06-07 20:04] VITALS: BP 159/90
[2021-06-07] MEDS: eZETimibe 10 MG (ZETIA) TABLET PO SCH (20:05)
[2021-06-07] MEDS: ENOXAPARIN 40 MG/0.4 ML (LOVENOX) SYR SC SCH (20:05)
--- NOTE | 2021-06-08 06:03 | PM&R Progress Note ---
Subjective HPI/CC On Admission Date Seen by Provider: Jun 08, 2021 Time Seen by Provider: 10:30 Subjective/Events-last exam 06/08/2021: Patient has no new issues Ambulating around really well Mendez catheter will remain in at discharge then will return once he can have a TURP Leg will have to be in a position and surgery that could pose risk for fracture so will need that healed before surgery Bowels are not moving ordered laxatives 06/07/2021: Pt is doing really well Proscar ordered Amiodaraone is now 200 mg Discontinue mendez and if pt can't urinate will need to put it back in Zetia will be given due to elevated liver enzymes from Statin therapy Review of Systems General: Fatigue, Malaise Musculoskeletal: leg pain, foot pain Objective Exam Vital Signs Vital Signs Date Time Temp Pulse Resp B/P (MAP) Pulse Ox O2 Delivery O2 Flow Rate FiO2 06/08/21 20:15 36.5 60 20 126/73 (90) 96 Room Air Capillary Refill : General Appearance: No Apparent Distress, WD/WN, Chronically ill HEENT: PERRL/EOMI, Normal ENT Inspection, Pharynx Normal Neck: Full Range of Motion, Normal Inspection, Non Tender, Supple, Carotid Bruit Respiratory: Chest Non Tender, Lungs Clear, Normal Breath Sounds, No Accessory Muscle Use, No Respiratory Distress Cardiovascular: Regular Rate, Rhythm, No Edema, No Gallop, No JVD, No Murmur, Normal Peripheral Pulses Gastrointestinal: Normal Bowel Sounds, No Organomegaly, No Pulsatile Mass, Non Tender, Soft Back: Normal Inspection, No CVA Tenderness, No Vertebral Tenderness Extremity: Normal Capillary Refill, Normal Inspection, Normal Range of Motion, Non Tender, No Calf Tenderness, No Pedal Edema Neurologic/Psychiatric: Alert, Oriented x3, No Motor/Sensory Deficits, Normal Mood/Affect, Motor Weakness Skin: Normal Color, Warm/Dry Lymphatic: No Adenopathy Results/Procedures Lab Patient resulted labs reviewed. FIM Transfers Therapy Code Descriptions/Definitions Functional [place] Measure: 0=Not Assessed/NA 4=Minimal Assistance 1=Total Assistance 5=Supervision or Setup 2=Maximal Assistance 6=Modified [place] 3=Moderate Assistance 7=Complete IndependenceSCALE: Activities may be completed with or without assistive devices. 1-Rvpotlyunt-bkihroz completes the activity by him/herself with no assistance from a helper. 5-Set-up or Clean-up Assistance-helper sets up or cleans up; patient completes activity. [place] assists only prior to or following the activity. 4-Supervision or Touching Assistance-helper provides verbal cues and/or touching/steadying and/or contact guard assistance as patient completes activity. Assistance may be provided throughout the activity or intermittently. 3-Partial/Moderate Assistance-helper does LESS THAN HALF the effort. [place] lif ts, holds or supports trunk or limbs, but provides less than half the effort. 2-Substantial/Maximal Assistance-helper does MORE THAN HALF the effort. [place] lifts or holds trunk or limbs and provides more than half the effort. 1-Iwxffjsem-qtgpzr does ALL the effort. Patient does none of the effort to complete the activity. Or, the assistance of 2 or more helpers is required for the patient to complete the activity. If activity was not attempted, code reason: 7-Patient Refused. 9-Not Applicable-not attempted and the patient did not perform the activity before the current illness, exacerbation or injury. 10-Not Attempted due to Environmental Limitations-(lack of equipment, weather restraints, etc.). 88-Not Attempted due to Medical Conditions or Safety Concerns. Roll Left to Right (QC): 5 Sit to Lying (QC): 5 Sit to Stand (QC): 3 Chair/Yna-lw-Tyndk Xfer(QC): 3 Car Transfer (QC): 3 Gait Training Does the Patient Walk?: Yes Distance: 100'x2 Walk 10 feet (QC): 4 Walk 50 ft with 2 Turns(QC): 4 Walk 150 ft (QC): 4 Walking 10ft/uneven surface-QC: 4 Gait Assistive Device: FWW Wheelchair Training Does the Pt Use a Wheelchair?: No Wheel 50 ft with 2 turns (QC): 9 Wheel 150 ft (QC): 9 Type of Wheelchair: N/A Stair Training 1 Step (curb) (QC): 4 4 Steps (QC): 88 12 Steps (QC): 88 Balance Picking up an Object (QC): 4 ADL-Treatment Eating (QC): 6 Oral Hygiene (QC): 6 (IND seated at sink.) Shower/Bathe Self (QC): 3 (min A with drying buttocks in stand) Upper Body Dressing (QC): 5 Lower Body Dressing (QC): 3 (Min A in stand for pant hike) On/Off Footwear (QC): 2 (Pt able doff L gripper sock & tedhose, assist to don. Pt required max A to doff and don R CAM boot) Toileting Hygiene (QC): 3 (Min A ) Assessment/Plan Assessment and Plan Assess & Plan/Chief Complaint Assessment: R distal fibular fracture 3 weeks ago now partial weight bearing per Dr Albright 06/06/21 NSTEMI, s/p cardioversion on 05/19 Ventricular tachycardia recurrent with hypotension prompting transfer to ICU on 05/30/2021 on lidocaine drip and transferred to [place] s/p ablation Cardiogenic shock, resolved T2DM Arrhythmogenic Right Ventricular Dysplasia NEVAEH, resolved Cerebral palsy history BPH DVT risk Urinary retention requiring mendez cath reinsertion Chronic Constipation s/p UTI Enterococcus placed on Vanco empirically 05/26/2021 then changed to Amoxil after sensitivities completed last admit Anemia of chronic disease Elevated liver enzymes Anemia Plan: Rehab protocol Pain control Partial weight bearing Urology consult Dr Albright consult Dr Farrar consult Check TSH to labs 06/07/2021: Monitor liver function Appreciate cardiology Appreciate urology Appreciate orthopedics 06/08/2021: Keep Mendez catheter in Supportive care (1) Ventricular tachycardia Status: Acute Assessment & Plan: He is now status post ablation for the ventricular tachycardia. He has a AUTOMATION OPERATOR-D device in place. He continue on amiodarone amiodarone 200 mg daily. He will need long-term monitoring for screening for development of side effects.. (2) Arrhythmogenic right ventricular dysplasia Status: Acute Assessment & Plan: We will continue with the amiodarone. He has a def ibrillator in place. (3) Right heart failure Assessment & Plan: He has significant right ventricular enlargement and dysfunction. At the present time he does not have any overt signs of right heart failure but he could develop issues with this in the future. Once he is discharged home, I will consider an outpatient referral to the advanced heart failure team at [facility]. Qualifiers: Heart failure chronicity: chronic Qualified Codes: I50.812 - Chronic right heart failure (4) Primary hypertension Assessment & Plan: He is on metoprolol tartrate and blood pressures are intermittently elevated. I will increase the dose of metoprolol. (5) Mixed hyperlipidemia Assessment & Plan: I have started him on ezetimibe. He had some sort of reaction to statin medications in the past. VALERIY POTTS DO Jun 08, 2021 06:03
[2021-06-08 07:46] VITALS: BP 169/91
[2021-06-08] MEDS: FINASTERIDE (PROSCAR) 5 MG TAB PO SCH (08:15)
[2021-06-08] MEDS: SENNA W/DOCUSATE (SENOKOT S) TABLET PO SCH ×2 (08:15→21:30)
[2021-06-08] MEDS: CYANOCOBALAMIN 1,000 MCG (VITAMIN B-12) TABLET PO SCH (08:15)
[2021-06-08] MEDS: FAMOTIDINE 20 MG (PEPCID) TABLET PO SCH (08:16)
[2021-06-08] MEDS: MULTIVIT W/MINERALS TAB (THERAGRAN M) PO SCH (08:16)
[2021-06-08] MEDS: ASCORBIC ACID (VIT C) 500 MG TABLET PO SCH (08:16)
[2021-06-08] MEDS: AMIODARONE 200 MG (CORDARONE) TAB PO SCH (08:16)
[2021-06-08] MEDS: ALLOPURINOL 100 MG (ZYLOPRIM) TAB PO SCH (08:16)
[2021-06-08] MEDS: polyethylene glycoL POWDER 17 GM (MIRALAX) PACK PO SCH ×2 (08:16→21:31)
[2021-06-08] MEDS: TAMSULOSIN 0.4 MG (FLOMAX) CAP PO SCH (08:16)
[2021-06-08] MEDS: meTOprolol TARTRATE 25 MG (LOPRESSOR) TABLET PO SCH ×2 (08:16→21:30)
[2021-06-08] MEDS: DOCUSATE SODIUM 100 MG (COLACE) CAP PO SCH ×2 (08:16→21:30)
[2021-06-08] MEDS: ASPIRIN 81 MG CHEW (CHILDREN'S ASA) PO SCH (08:16)
[2021-06-08] MEDS ORDERED: AMIODARONE 200 MG (CORDARONE) TAB PO SCH (09:00)
--- NOTE | 2021-06-08 09:20 | Progress Note - Urology ---
Progress Note-Urology Progress Notes/Assess & Plan Progress/Assessment & Plan FAILED TOV. PLAN TURP BETTER THAN UROLIFT ONCE MEDICALLY AND LEG RUSH FEASIBLE EITHER THIS HOSPITALIZATION OR LATER OP. WILL NEED OFF ASA FOR A WEEK AND OFF LOVENOX.ALL FULLY EXPLAINED TO PATIENT Final Diagnosis RETENTION ANABELLA PORTER MD Jun 08, 2021 09:20
--- NOTE | 2021-06-08 09:57 | Physical Therapy Daily Note ---
PT Daily Note-Current Subjective Patient was in chair upon entering and compliant to start treatment. Patient had no new complaints. Pain Numeric Pain Scale: 5-Moderate Pain Location: Right Location Body Site: Ankle Comment: No pain at rest. 5/10 pain with activity Mental Status Patient Orientation: Person, Place, Time, Situation cam boot Transfers SCALE: Activities may be completed with or without assistive devices. 8-Uquaabqzva-xmqzdyv completes the activity by him/herself with no assistance from a helper. 5-Set-up or Clean-up Assistance-helper sets up or cleans up; patient completes activity. [place] assists only prior to or following the activity. 4-Supervision or Touching Assistance-helper provides verbal cues and/or touching/steadying and/or contact guard assistance as patient completes activity. Assistance may be provided throughout the activity or intermittently. 3-Partial/Moderate Assistance-helper does LESS THAN HALF the effort. [place] lifts, holds or supports trunk or limbs, but provides less than half the effort. 2-Substantial/Maximal Assistance-helper does MORE THAN HALF the effort. [place] lifts or holds trunk or limbs and provides more than half the effort. 3-Uzpbhddza-ghhowl does ALL the effort. Patient does none of the effort to complete the activity. Or, the assistance of 2 or more helpers is required for the patient to complete the activity. If activity was not attempted, code reason: 7-Patient Refused. 9-Not Applicable-not attempted and the patient did not perform the activity before the current illness, exacerbation or injury. 10-Not Attempted due to Environmental Limitations-(lack of equipment, weather restraints, etc.). 88-Not Attempted due to Medical Conditions or Safety Concerns. Sit to Lying (QC): 4 Lying to Sitting/Side of Bed(Q: 4 Sit to Stand (QC): 4 Chair/Agz-he-Lwtoy Xfer(QC): 4 CGA Weight Bearing Right Lower Extremity: Right Partial Weight Bearing Left Lower Extremity: Left Full Weight Bearing Gait Training Distance: 250', 150' Walk 10 feet (QC): 4 Walk 50 ft with 2 Turns(QC): 4 Walk 150 ft (QC): 4 Gait Assistive Device: FWW Exercises Supine Ex: Bridging Supine Reps: 20 Seated Therapy Exercises: Long arc quads Seated Reps: 20 NuStep Minutes: 15 NuStep Workload: 4 Treatments ambulation, transfers, LE strengthening, mobility sit to stands 5x5 Assessment Current Status: Fair Progress Patient was able to ambulate for longer distances from previous. Patient has improved his strength with sit to stands. Patient doesn't seem to need as much rest throughout session as before. PT Short Term Goals Short Term Goals Time Frame: Jun 13, 2021 Roll Left & Right: 6 Sit to lyin Lying to sitting on side of be: 6 Sit to stand: 4 Chair/whz-ba-dfrpb transfer: 4 Walk 10 feet: 4 Walk 50 feet with two turns: 4 Walk 150 feet: 4 PT Document Image Technician Goals Document Image Technician Goals PT Document Image Technician Goals Time Frame: Jun 27, 2021 Roll Left & Right (QC): 6 Sit to Lying (QC): 6 Lying-Sitting on Side/Bed(QC): 6 Sit to Stand (QC): 6 Chair/Zyn-ih-Bilkt Xfer(QC): 6 Toilet Transfer (QC): 6 Car Transfer (QC): 6 Does the Patient Walk: Yes Walk 10 feet (QC): 6 Walk 50ft with 2 Turns (QC): 6 Walk 150 ft (QC): 6 Walking 10ft on Uneven Surface: 6 1 Step (curb) (QC): 6 4 Steps (QC): 9 12 Steps (QC): 9 Picking up an Object (QC): 6 Does the Pt use WC or Scooter?: No Wheel 50 feet with 2 turns (QC: 9 Type: N/A Wheel 150 feet: 9 Type: N/A PT Plan Problem List Problem List: Activity Tolerance, Functional Strength, Safety, Balance, Gait, Transfer, Bed Mobility, ROM Treatment/Plan Treatment Plan: Continue Plan of Care Treatment Plan: Bed Mobility, Education, Functional Activity Mallika, Functional Strength, Group Therapy, Gait, Safety, Therapeutic Exercise, Transfers Treatment Duration: Jun 20, 2021 Frequency: At least 5 of 7 days/Wk (IRF) Estimated Hrs Per Day: 1.5 hours per day Patient and/or Family Agrees t: Yes Safety Risks/Education Patient Education: Gait Training, Transfer Techniques, Safety Issues Teaching Recipient: Patient Teaching Methods: Discussion Response to Teaching: Verbalize Understanding Time/GCodes Time In: 0900 Time Out: 1000 Total Billed Treatment Time: 60 Total Billed Treatment 1 visit GT 30min EX 30 CHARLEE VELASCO PT Jun 08, 2021 09:57
--- NOTE | 2021-06-08 10:12 | Occupational Ther Daily Note ---
OT Current Status-Daily Note Subjective Pt in therapy gym, post PT tx. Agreeable to OT tx. Pt reports 5/10 pain in R foot post tx, nurse aware and provided medications. Mental Status/Objective Patient Orientation: Person, Place, Time, Situation, Normal For Age Attachments: Duong Catheter ADL-Treatment Therapy Code Descriptions/Definitions Functional [place] Measure: 0=Not Assessed/NA 4=Minimal Assistance 1=Total Assistance 5=Supervision or Setup 2=Maximal Assistance 6=Modified [place] 3=Moderate Assistance 7=Complete IndependenceSCALE: Activities may be completed with or without assistive devices. 8-Qbmqzmwars-hrnhors completes the activity by him/herself with no assistance fr om a helper. 5-Set-up or Clean-up Assistance-helper sets up or cleans up; patient completes activity. [place] assists only prior to or following the activity. 4-Supervision or Touching Assistance-helper provides verbal cues and/or touching/steadying and/or contact guard assistance as patient completes activity. Assistance may be provided throughout the activity or intermittently. 3-Partial/Moderate Assistance-helper does LESS THAN HALF the effort. [place] lifts, holds or supports trunk or limbs, but provides less than half the effort. 2-Substantial/Maximal Assistance-helper does MORE THAN HALF the effort. [place] lifts or holds trunk or limbs and provides more than half the effort. 4-Pjqkcdbqy-rzylcf does ALL the effort. Patient does none of the effort to complete the activity. Or, the assistance of 2 or more helpers is required for the patient to complete the activity. If activity was not attempted, code reason: 7-Patient Refused. 9-Not Applicable-not attempted and the patient did not perform the activity before the current illness, exacerbation or injury. 10-Not Attempted due to Environmental Limitations-(lack of equipment, weather restraints, etc.). 88-Not Attempted due to Medical Conditions or Safety Concerns. On/Off Footwear: 3 (min A with CAM boot) Other Treatment Pt in therapy gym, agreeable to OT Tx. OT tx with focus on increasing BUE Strength and activity tolerance in order to increase independence with self care tasks and functional mobility/transfers. PT completed arm bike, 20 watt resistance, x18 mins with a couple of rest breaks. Education provided on donning/doffing CAM boot, pt completed with min A overall. Pt completed nut/bolt block, x16 total, 2lb wrist weights BUEs. Pt placed/removed 1" pegs from foam pegboard, alternating hands, 2lb wrist weights BUEs. Pt used FWW to return to room, CGA, 1 seated rest break shelter. Pt transferred to EOB, then supine with SBA. Post tx, pt in bed, call light in reach and all needs me.t Education OT Patient Education: Correct positioning, Energy conservation, Modified ADL techniques, Progress toward Goal/Update tx plan, Purpose of tx/functional activities, Rehab process Teaching Recipient: Patient Teaching Methods: Discussion Response to Teaching: Verbalize Understanding OT Short Term Goals Short Term Goals Time Frame: Jun 21, 2021 Shower/bathe self: 5 Lower body dressin Putting on/taking off footwear: 5 OT Penitentiary Goals Penitentiary Goals Time Frame: July 07, 2021 Eating (QC): 6 Oral Hygiene (QC): 6 Toileting Hygiene (QC): 6 Shower/Bathe Self (QC): 6 Upper Body Dressing (QC): 6 Lower Body Dressing (QC): 6 On/Off Footwear (QC): 6 1=Demonstrate adherence to instructed precautions during ADL tasks. 2=Patient will verbalize/demonstrate understanding of assistive devices/modifications for ADL. 3=Patient will improve strength/tolerance for activity to enable patient to perform ADL's. OT Education/Plan Problem List/Assessment Assessment: Decreased Activ Tolerance, Decreased UE Strength, Impaired Funct Balance, Impaired I ADL's, Impaired Self-Care Skills Discharge Recommendations Plan/Recommendations: Continue POC Treatment Plan/Plan of Care Patient would benefit from OT for education, treatment and training to promote independence in ADL's, mobility, safety and/or upper extremity function for ADL's. Plan of Care: ADL Retraining, Functional Mobility, Group Exercise/Act as Ind, UE Funct Exercise/Act Treatment Duration: July 07, 2021 Frequency: At least 5 of 7 days/Wk (IRF) Estimated Hrs Per Day: 1.5 hours per day Agreement: Yes Rehab Potential: Fair Time/GCodes Start Time: 10:00 Stop Time: 11:30 Total Time Billed (hr/min): 90 Billed Treatment Time 1, ADL (15'), EX (20'), FA 4 (55') JOSY RAO OT Jun 08, 2021 10:12
[2021-06-08] MEDS: ACETAMINOPHEN 325 MG TABLET PO PRN (11:19)
--- NOTE | 2021-06-08 14:22 | Physical Therapy Daily Note ---
PT Daily Note-Current Subjective Patient was in bed and compliant to treatment. Patient had no new complaints Pain Location: No Pain Reported Mental Status Patient Orientation: Person, Place, Situation Attachments: Duong Catheter Transfers SCALE: Activities may be completed with or without assistive devices. 3-Fwnvguovmp-yxbpour completes the activity by him/herself with no assistance from a helper. 5-Set-up or Clean-up Assistance-helper sets up or cleans up; patient completes activity. [place] assists only prior to or following the activity. 4-Supervision or Touching Assistance-helper provides verbal cues and/or touching/steadying and/or contact guard assistance as patient completes activity. Assistance may be provided throughout the activity or intermittently. 3-Partial/Moderate Assistance-helper does LESS THAN HALF the effort. [place] lifts, holds or supports trunk or limbs, but provides less than half the effort. 2-Substantial/Maximal Assistance-helper does MORE THAN HALF the effort. [place] lifts or holds trunk or limbs and provides more than half the effort. 9-Pylfwccsq-tphvva does ALL the effort. Patient does none of the effort to complete the activity. Or, the assistance of 2 or more helpers is required for the patient to complete the activity. If activity was not attempted, code reason: 7-Patient Refused. 9-Not Applicable-not attempted and the patient did not perform the activity before the current illness, exacerbation or injury. 10-Not Attempted due to Environmental Limitations-(lack of equipment, weather restraints, etc.). 88-Not Attempted due to Medical Conditions or Safety Concerns. Sit to Lying (QC): 6 Lying to Sitting/Side of Bed(Q: 6 Sit to Stand (QC): 4 Weight Bearing Right Lower Extremity: Right Partial Weight Bearing Left Lower Extremity: Left Full Weight Bearing Gait Training Does the Patient Walk?: Yes Distance: 250', 120', 100 Walk 10 feet (QC): 4 Walk 50 ft with 2 Turns(QC): 4 Walk 150 ft (QC): 4 Gait Assistive Device: FWW Exercises Standing: Hamstring curls, 3 way Ex=Flex, Abd, Ext, Marching Standing Reps: 20 LAQ Treatments Ambulation, LE strengthening Assessment Current Status: Fair Progress Patient tolerated treatment well and showed improved strength with LE exercises. Patient still fatigues quickly. Patient was left in bed with call light, tray, and all needs met PT Short Term Goals Short Term Goals Time Frame: Jun 13, 2021 Roll Left & Right: 6 Sit to lyin Lying to sitting on side of be: 6 Sit to stand: 4 Chair/zmq-ht-qxxfp transfer: 4 Walk 10 feet: 4 Walk 50 feet with two turns: 4 Walk 150 feet: 4 PT Skilled Nursing Goals Knotter Hand Goals PT Knotter Hand Goals Time Frame: Jun 27, 2021 Roll Left & Right (QC): 6 Sit to Lying (QC): 6 Lying-Sitting on Side/Bed(QC): 6 Sit to Stand (QC): 6 Chair/Lbp-oy-Vxpxy Xfer(QC): 6 Toilet Transfer (QC): 6 Car Transfer (QC): 6 Does the Patient Walk: Yes Walk 10 feet (QC): 6 Walk 50ft with 2 Turns (QC): 6 Walk 150 ft (QC): 6 Walking 10ft on Uneven Surface: 6 1 Step (curb) (QC): 6 4 Steps (QC): 9 12 Steps (QC): 9 Picking up an Object (QC): 6 Does the Pt use WC or Scooter?: No Wheel 50 feet with 2 turns (QC: 9 Type: N/A Wheel 150 feet: 9 Type: N/A PT Plan Problem List Problem List: Activity Tolerance, Functional Strength, Safety, Balance, Gait, Transfer, Bed Mobility, ROM Treatment/Plan Treatment Plan: Continue Plan of Care Treatment Plan: Bed Mobility, Education, Functional Activity Mallika, Functional Strength, Group Therapy, Gait, Safety, Therapeutic Exercise, Transfers Treatment Duration: Jun 20, 2021 Frequency: At least 5 of 7 days/Wk (IRF) Estimated Hrs Per Day: 1.5 hours per day Patient and/or Family Agrees t: Yes Safety Risks/Education Patient Education: Gait Training, Transfer Techniques, Reviewed Precautions, Correct Positioning, Safety Issues Teaching Recipient: Patient Teaching Methods: Demonstration, Discussion Response to Teaching: Reinforcement Needed Time/GCodes Time In: 1345 Time Out: 30 Total Billed Treatment Time: 1415 Total Billed Treatment 1 visit GT 15 min EX 15min CHARLEE VELASCO PT Jun 08, 2021 14:22
[2021-06-08 20:15] VITALS: BP 126/73
[2021-06-08] MEDS: eZETimibe 10 MG (ZETIA) TABLET PO SCH (21:30)
[2021-06-08] MEDS: ENOXAPARIN 40 MG/0.4 ML (LOVENOX) SYR SC SCH (21:31)
[2021-06-09] MEDS: ACETAMINOPHEN 325 MG TABLET PO PRN ×3 (01:12→13:07)
--- NOTE | 2021-06-09 06:04 | PM&R Progress Note ---
Subjective HPI/CC On Admission Date Seen by Provider: Jun 09, 2021 Time Seen by Provider: 10:00 Subjective/Events-last exam 06/09/2021: Patient doing really well Moving around really well Mendez catheter remains Spoke with urology about the plan Bowels moving 06/08/2021: Patient has no new issues Ambulating around really well Mendez catheter will remain in at discharge then will return once he can have a TURP Leg will have to be in a position and surgery that could pose risk for fracture so will need that healed before surgery Bowels are not moving ordered laxatives 06/07/2021: Pt is doing really well Proscar ordered Amiodaraone is now 200 mg Discontinue mendez and if pt can't urinate will need to put it back in Zetia will be given due to elevated liver enzymes from Statin therapy Review of Systems General: Fatigue, Malaise Musculoskeletal: leg pain Objective Exam Vital Signs Vital Signs Date Time Temp Pulse Resp B/P (MAP) Pulse Ox O2 Delivery O2 Flow Rate FiO2 06/09/21 20:20 Room Air 06/09/21 19:56 36.2 58 16 155/94 (114) 94 Capillary Refill : General Appearance: No Apparent Distress, WD/WN, Chronically ill HEENT: PERRL/EOMI, Normal ENT Inspection, Pharynx Normal Neck: Full Range of Motion, Normal Inspection, Non Tender, Supple, Carotid Bruit Respiratory: Chest Non Tender, Lungs Clear, Normal Breath Sounds, No Accessory Muscle Use, No Respiratory Distress Cardiovascular: Regular Rate, Rhythm, No Edema, No Gallop, No JVD, No Murmur, Normal Peripheral Pulses Gastrointestinal: Normal Bowel Sounds, No Organomegaly, No Pulsatile Mass, Non Tender, Soft Back: Normal Inspection, No CVA Tenderness, No Vertebral Tenderness Extremity: Normal Capillary Refill, Normal Inspection, Normal Range of Motion, Non Tender, No Calf Tenderness, No Pedal Edema Neurologic/Psychiatric: Alert, Oriented x3, No Motor/Sensory Deficits, Normal Mood/Affect, Motor Weakness Skin: Normal Color, Warm/Dry Lymphatic: No Adenopathy Results/Procedures Lab Patient resulted labs reviewed. FIM Transfers Therapy Code Descriptions/Definitions Functional [place] Measure: 0=Not Assessed/NA 4=Minimal Assistance 1=Total Assistance 5=Supervision or Setup 2=Maximal Assistance 6=Modified [place] 3=Moderate Assistance 7=Complete IndependenceSCALE: Activities may be completed with or without assistive devices. 0-Ltvizveupc-kdmnkox completes the activity by him/herself with no assistance from a helper. 5-Set-up or Clean-up Assistance-helper sets up or cleans up; patient completes activity. [place] assists only prior to or following the activity. 4-Supervision or Touching Assistance-helper provides verbal cues and/or touching/steadying and/or contact guard assistance as patient completes activity. Assistance may be provided throughout the activity or intermittently. 3-Partial/Moderate Assistance-helper does LESS THAN HALF the effort. [place] lifts, holds or supports trunk or limbs, but provides less than half the effort. 2-Substantial/Maximal Assistance-helper does MORE THAN HALF the effort. [place] lifts or holds trunk or limbs and provides more than half the effort. 1-Tmdwwrdgr-hbgyzg does ALL the effort. Patient does none of the effort to complete the activity. Or, the assistance of 2 or more helpers is required for the patient to complete the activity. If activity was not attempted, code reason: 7-Patient Refused. 9-Not Applicable-not attempted and the patient did not perform the activity before the current illness, exacerbation or injury. 10-Not Attempted due to Environmental Limitations-(lack of equipment, weather restraints, etc.). 88-Not Attempted due to Medical Conditions or Safety Concerns. Roll Left to Right (QC): 5 Sit to Lying (QC): 6 Sit to Stand (QC): 4 Chair/Wga-im-Mkstq Xfer(QC): 4 Car Transfer (QC): 3 Gait Training Does the Patient Walk?: Yes Distance: 250', 120', 100 Walk 10 feet (QC): 4 Walk 50 ft with 2 Turns(QC): 4 Walk 150 ft (QC): 4 Walking 10ft/uneven surface-QC: 4 Gait Assistive Device: FWW Wheelchair Training Does the Pt Use a Wheelchair?: No Wheel 50 ft with 2 turns (QC): 9 Wheel 150 ft (QC): 9 Type of Wheelchair: N/A Stair Training 1 Step (curb) (QC): 4 4 Steps (QC): 88 12 Steps (QC): 88 Balance Picking up an Object (QC): 4 ADL-Treatment Eating (QC): 6 Oral Hygiene (QC): 6 (IND seated at sink.) Shower/Bathe Self (QC): 3 (min A with drying buttocks in stand) Upper Body Dressing (QC): 5 Lower Body Dressing (QC): 3 (Min A in stand for pant hike) On/Off Footwear (QC): 3 (min A with CAM boot) Toileting Hygiene (QC): 3 (Min A ) Assessment/Plan Assessment and Plan Assess & Plan/Chief Complaint Assessment: R distal fibular fracture 3 weeks ago now partial weight bearing per Dr Albright 06/06/21 NSTEMI, s/p cardioversion on 05/19 Ventricular tachycardia recurrent with hypotension prompting transfer to ICU on 05/30/2021 on lidocaine drip and transferred to [place] s/p ablation Cardiogenic shock, resolved T2DM Arrhythmogenic Right Ventricular Dysplasia NEVAEH, resolved Cerebral palsy history BPH DVT risk Urinary retention requiring mendez cath reinsertion Chronic Constipation s/p UTI Enterococcus placed on Vanco empirically 05/26/2021 then changed to Amoxil after sensitivities completed last admit Anemia of chronic disease Elevated liver enzymes Anemia Plan: Rehab protocol Pain control Partial weight bearing Urology consult Dr Albright consult Dr Farrar consult Check TSH to labs 06/07/2021: Monitor liver function Appreciate cardiology Appreciate urology Appreciate orthopedics 06/08/2021: Keep Mendez catheter in Supportive care 06/09/2021: Supportive care Maintain Mendez (1) Ventricular tachycardia Status: Acute Assessment & Plan: He is now status post ablation for the ventricular t achycardia. 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 He continue on amiodarone amiodarone 200 mg daily. He will need long-term monitoring for screening for development of side effects.. (2) Arrhythmogenic right ventricular dysplasia Status: Acute Assessment & Plan: We will continue with the amiodarone. He has a defibrilla tor in place. (3) Right heart failure Assessment & Plan: He has significant right ventricular enlargement and dysfunction. At the present time he does not have any overt signs of right heart failure but he could develop issues with this in the future. Once he is discharged home, I will consider an outpatient referral to the advanced heart failure team at [facility]. Qualifiers: Heart failure chronicity: chronic Qualified Codes: I50.812 - Chronic right heart failure (4) Primary hypertension Assessment & Plan: He is on metoprolol tartrate and blood pressures are intermittently elevated. I will increase the dose of metoprolol. (5) Mixed hyperlipidemia Assessment & Plan: I have started him on ezetimibe. He had some sort of reaction to statin medications in the past. VALERIY POTTS DO Jun 09, 2021 06:04
[2021-06-09 07:50] VITALS: BP 149/96
[2021-06-09] MEDS: ALLOPURINOL 100 MG (ZYLOPRIM) TAB PO SCH (09:12)
[2021-06-09] MEDS: ASPIRIN 81 MG CHEW (CHILDREN'S ASA) PO SCH (09:12)
[2021-06-09] MEDS: FAMOTIDINE 20 MG (PEPCID) TABLET PO SCH (09:12)
[2021-06-09] MEDS: FINASTERIDE (PROSCAR) 5 MG TAB PO SCH (09:12)
[2021-06-09] MEDS: ASCORBIC ACID (VIT C) 500 MG TABLET PO SCH (09:12)
[2021-06-09] MEDS: DOCUSATE SODIUM 100 MG (COLACE) CAP PO SCH ×2 (09:12→20:24)
[2021-06-09] MEDS: SENNA W/DOCUSATE (SENOKOT S) TABLET PO SCH ×2 (09:12→20:24)
[2021-06-09] MEDS: CYANOCOBALAMIN 1,000 MCG (VITAMIN B-12) TABLET PO SCH (09:13)
[2021-06-09] MEDS: TAMSULOSIN 0.4 MG (FLOMAX) CAP PO SCH (09:13)
[2021-06-09] MEDS: polyethylene glycoL POWDER 17 GM (MIRALAX) PACK PO SCH ×2 (09:13→19:57)
[2021-06-09] MEDS: meTOprolol TARTRATE 25 MG (LOPRESSOR) TABLET PO SCH ×2 (09:13→20:24)
[2021-06-09] MEDS: AMIODARONE 200 MG (CORDARONE) TAB PO SCH (09:13)
[2021-06-09] MEDS: MULTIVIT W/MINERALS TAB (THERAGRAN M) PO SCH (09:19)
--- NOTE | 2021-06-09 09:23 | Progress Note - Urology ---
Progress Note-Urology Progress Notes/Assess & Plan Progress/Assessment & Plan AWAITING GREEN LIGHT FROM DR POTTS Final Diagnosis RETENTION ANABELLA PORTER MD Jun 09, 2021 09:23
--- NOTE | 2021-06-09 09:25 | Occupational Ther Daily Note ---
OT Current Status-Daily Note Subjective Pt in bed, agreeable to OT Tx. Mental Status/Objective Patient Orientation: Person, Place, Time, Situation ADL-Treatment Therapy Code Descriptions/Definitions Functional [place] Measure: 0=Not Assessed/NA 4=Minimal Assistance 1=Total Assistance 5=Supervision or Setup 2=Maximal Assistance 6=Modified [place] 3=Moderate Assistance 7=Complete IndependenceSCALE: Activities may be completed with or without assistive devices. 2-Ssprookjbl-wdpgwfn completes the activity by him/herself with no assistance from a helper. 5-Set-up or Clean-up Assistance-helper sets up or cleans up; patient completes activity. [place] assists only prior to or following the activity. 4-Supervision or Touching Assistance-helper provides verbal cues and/or touching/steadying and/or contact guard assistance as patient completes activity. Assistance may be provided throughout the activity or intermittently. 3-Partial/Moderate Assistance-helper does LESS THAN HALF the effort. [place] lifts, holds or supports trunk or limbs, but provides less than half the effort. 2-Substantial/Maximal Assistance-helper does MORE THAN HALF the effort. [place] lifts or holds trunk or limbs and provides more than half the effort. 8-Bmrvcwxfx-exetkt does ALL the effort. Patient does none of the effort to complete the activity. Or, the assistance of 2 or more helpers is required for the patient to complete the activity. If activity was not attempted, code reason: 7-Patient Refused. 9-Not Applicable-not attempted and the patient did not perform the activity before the current illness, exacerbation or injury. 10-Not Attempted due to Environmental Limitations-(lack of equipment, weather restraints, etc.). 88-Not Attempted due to Medical Conditions or Safety Concerns. Oral Hygiene (QC): 6 (IND standing at sink) Other Treatment Pt up in recliner, agreeable to OT Tx. Pt transferred supine to sit EOB, SBA. Pt doffed L gripper sock and donned L slip on shoes with set up. Pt used FWW to transfer into bathroom, stand at sink to complete oral care. Pt used FWW to go to therapy gym. OT tx with focus on increasing BUE strength and activity tolerance. Pt completed arm bike x18 mins, 20 Watt resistance. Pt then completed 3 pipe tree diagrams, following written pattern, 2lb wrist weights BUEs. Pt required rest breaks between patterns, and 1 verbal cue on the last pattern for correct placement. Post tx, pt seated in therapy gym, all needs met, PT present for tx. Education OT Patient Education: Correct positioning, Energy conservation, Modified ADL techniques, Progress toward Goal/Update tx plan, Purpose of tx/functional activities, Rehab process Teaching Recipient: Patient Teaching Methods: Discussion Response to Teaching: Verbalize Understanding OT Short Term Goals Short Term Goals Time Frame: Jun 21, 2021 Shower/bathe self: 5 Lower body dressin Putting on/taking off footwear: 5 OT Waterside Worker Goals Waters[place] Worker Goals Time Frame: July 07, 2021 Eating (QC): 6 Oral Hygiene (QC): 6 Toileting Hygiene (QC): 6 Shower/Bathe Self (QC): 6 Upper Body Dressing (QC): 6 Lower Body Dressing (QC): 6 On/Off Footwear (QC): 6 1=Demonstrate adherence to instructed precautions during ADL tasks. 2=Patient will verbalize/demonstrate understanding of assistive devices/modifications for ADL. 3=Patient will improve strength/tolerance for activity to enable patient to perform ADL's. OT Education/Plan Problem List/Assessment Assessment: Decreased Activ Tolerance, Decreased UE Strength, Impaired Funct Balance, Impaired I ADL's, Impaired Self-Care Skills Discharge Recommendations Plan/Recommendations: Continue POC Treatment Plan/Plan of Care Patient would benefit from OT for education, treatment and training to promote independence in ADL's, mobility, safety and/or upper extremity function for ADL's. Plan of Care: ADL Retraining, Functional Mobility, Group Exercise/Act as Ind, UE Funct Exercise/Act Treatment Duration: July 07, 2021 Frequency: At least 5 of 7 days/Wk (IRF) Estimated Hrs Per Day: 1.5 hours per day Agreement: Yes Rehab Potential: Fair Time/GCodes Start Time: 09:00 Stop Time: 10:00 Total Time Billed (hr/min): 60 Billed Treatment Time 1, ADL (15'), EX (20'), FA 2 (25') JOSY RAO OT Jun 09, 2021 09:25
--- NOTE | 2021-06-09 11:34 | Occupational Ther Daily Note ---
OT Current Status-Daily Note Subjective Pt in gym with PT, agreeable to OT/PT cotreat for focus on higher level balance tasks. ADL-Treatment Therapy Code Descriptions/Definitions Functional [place] Measure: 0=Not Assessed/NA 4=Minimal Assistance 1=Total Assistance 5=Supervision or Setup 2=Maximal Assistance 6=Modified [place] 3=Moderate Assistance 7=Complete IndependenceSCALE: Activities may be completed with or without assistive devices. 6-Slinikavvi-sovrxgv completes the activity by him/herself with no assistance from a helper. 5-Set-up or Clean-up Assistance-helper sets up or cleans up; patient completes activity. [place] assists only prior to or following the activity. 4-Supervision or Touching Assistance-helper provides verbal cues and/or touching/steadying and/or contact guard assistance as patient completes activity. Assistance may be provided throughout the activity or intermittently. 3-Partial/Moderate Assistance-helper does LESS THAN HALF the effort. [place] lif ts, holds or supports trunk or limbs, but provides less than half the effort. 2-Substantial/Maximal Assistance-helper does MORE THAN HALF the effort. [place] lifts or holds trunk or limbs and provides more than half the effort. 6-Joemwcrwu-inclfu does ALL the effort. Patient does none of the effort to complete the activity. Or, the assistance of 2 or more helpers is required for the patient to complete the activity. If activity was not attempted, code reason: 7-Patient Refused. 9-Not Applicable-not attempted and the patient did not perform the activity before the current illness, exacerbation or injury. 10-Not Attempted due to Environmental Limitations-(lack of equipment, weather restraints, etc.). 88-Not Attempted due to Medical Conditions or Safety Concerns. Other Treatment OT/PT cotreat due to skill of 2 clinicals required which a regional rehabilitation director could not perform in order to coordinate UE/LEs, decrease fall risk, focus on higher level balance tasks, maintain PWB RLE, and due to pt's limitations in strength, mobility/transfers, and safety. OT focused on UE placement, cues for sequencing/safety, and ADLs, PT focused on LE placement, gross overall movements, transfers/mobility. Pt stood at FWW, completing UE reaching/throwing task x3 rounds. Round 1 toss/catch, round 2 bounce/catch, round 3 alternating bounce/catch and toss/catch. Pt took seated rest breaks between tasks. Pt used FWW to return to room, transferring to recliner. Post tx, pt in recliner, call light in reach and all needs met. Education OT Patient Education: Correct positioning, Energy conservation, Modified ADL techniques, Progress toward Goal/Update tx plan, Purpose of tx/functional activities, Rehab process Teaching Recipient: Patient Teaching Methods: Discussion Response to Teaching: Verbalize Understanding OT Short Term Goals Short Term Goals Time Frame: Jun 21, 2021 Shower/bathe self: 5 Lower body dressin Putting on/taking off footwear: 5 OT Electronic Resources Librarian Goals Electronic Resources Librarian Goals Time Frame: July 07, 2021 Eating (QC): 6 Oral Hygiene (QC): 6 Toileting Hygiene (QC): 6 Shower/Bathe Self (QC): 6 Upper Body Dressing (QC): 6 Lower Body Dressing (QC): 6 On/Off Footwear (QC): 6 1=Demonstrate adherence to instructed precautions during ADL tasks. 2=Patient will verbalize/demonstrate understanding of assistive devices/modifications for ADL. 3=Patient will improve strength/tolerance for activity to enable patient to perform ADL's. OT Education/Plan Problem List/Assessment Assessment: Decreased Activ Tolerance, Decreased UE Strength, Impaired Funct Balance, Impaired I ADL's, Impaired Self-Care Skills Discharge Recommendations Plan/Recommendations: Continue POC Treatment Plan/Plan of Care Patient would benefit from OT for education, treatment and training to promote independence in ADL's, mobility, safety and/or upper extremity function for ADL's. Plan of Care: ADL Retraining, Functional Mobility, Group Exercise/Act as Ind, UE Funct Exercise/Act Treatment Duration: July 07, 2021 Frequency: At least 5 of 7 days/Wk (IRF) Estimated Hrs Per Day: 1.5 hours per day Agreement: Yes Rehab Potential: Fair Time/GCodes Start Time: 11:00 Stop Time: 11:30 Total Time Billed (hr/min): 30 Billed Treatment Time cotreat x30 1, FA 2 JOSY RAO OT Jun 09, 2021 11:34
--- NOTE | 2021-06-09 12:07 | Physical Therapy Daily Note ---
PT Daily Note-Current Subjective Patient was working with OT prior and was compliant to start treatment. Patient had no new complaints. Pain Location: No Pain Reported Mental Status Patient Orientation: Person, Place, Time, Situation Attachments: Duong Catheter Transfers SCALE: Activities may be completed with or without assistive devices. 3-Nfealvtjov-rhsrodi completes the activity by him/herself with no assistance from a helper. 5-Set-up or Clean-up Assistance-helper sets up or cleans up; patient completes activity. [place] assists only prior to or following the activity. 4-Supervision or Touching Assistance-helper provides verbal cues and/or touching/steadying and/or contact guard assistance as patient completes activity. Assistance may be provided throughout the activity or intermittently. 3-Partial/Moderate Assistance-helper does LESS THAN HALF the effort. [place] lifts, holds or supports trunk or limbs, but provides less than half the effort. 2-Substantial/Maximal Assistance-helper does MORE THAN HALF the effort. [place] lifts or holds trunk or limbs and provides more than half the effort. 7-Xibdnpkxh-uhhlem does ALL the effort. Patient does none of the effort to complete the activity. Or, the assistance of 2 or more helpers is required for the patient to complete the activity. If activity was not attempted, code reason: 7-Patient Refused. 9-Not Applicable-not attempted and the patient did not perform the activity before the current illness, exacerbation or injury. 10-Not Attempted due to Environmental Limitations-(lack of equipment, weather restraints, etc.). 88-Not Attempted due to Medical Conditions or Safety Concerns. Sit to Stand (QC): 4 CGA Weight Bearing Right Lower Extremity: Right Partial Weight Bearing Left Lower Extremity: Left Full Weight Bearing Gait Training Distance: 250' Walk 10 feet (QC): 4 Walk 50 ft with 2 Turns(QC): 4 Walk 150 ft (QC): 4 Gait Assistive Device: FWW CGA. Impoved upright posture. Wheelchair Training Does the Pt Use a Wheelchair?: No Type of Wheelchair: N/A Exercises Standing: Hamstring curls, 3 way Ex=Flex, Abd, Ext, Sit to Stand (2 sets of 5 reps) Standing Reps: 10 R hip flexion. LAQ NuStep Minutes: 15 NuStep Workload: 4 Treatments LE strengthening, mobility, balance, ambulation Balance activity: Patient stood up from chair for 4min x 3. OT worked on UE movements and coordination with ball tosses, while PT worked on standing dynamic balance. Assessment Current Status: Fair Progress Patient has slowly improved in strength and activity tolerance as he was able to perform standing strengthening exercises with less rests than previous. Patient presents with short term memory deficits as noted when he couldn't remember the activities we just performed. Patient could ambulate with a slightly more upright posture but requires verbal cues. Pt. is mostly compliant with WB status during ambulation, but still needs reminders. Patient did well with standing balance activities, but still a little unsteady. Patient was co-treated with OT for auto parts manager (30min) to work on standing balance and UE activities simultaneously. PT treated [id number], PT&OT co-treated from -[id number]. PT Short Term Goals Short Term Goals Time Frame: Jun 13, 2021 Roll Left & Right: 6 Sit to lyin Lying to sitting on side of be: 6 Sit to stand: 4 Chair/vqi-qs-cqngs transfer: 4 Walk 10 feet: 4 Walk 50 feet with two turns: 4 Walk 150 feet: 4 PT Half-Way Goals Cps Team Lead Goals PT Cps Team Lead Goals Time Frame: Jun 27, 2021 Roll Left & Right (QC): 6 Sit to Lying (QC): 6 Lying-Sitting on Side/Bed(QC): 6 Sit to Stand (QC): 6 Chair/Dkn-ke-Akpnj Xfer(QC): 6 Toilet Transfer (QC): 6 Car Transfer (QC): 6 Does the Patient Walk: Yes Walk 10 feet (QC): 6 Walk 50ft with 2 Turns (QC): 6 Walk 150 ft (QC): 6 Walking 10ft on Uneven Surface: 6 1 Step (curb) (QC): 6 4 Steps (QC): 9 12 Steps (QC): 9 Picking up an Object (QC): 6 Does the Pt use WC or Scooter?: No Wheel 50 feet with 2 turns (QC: 9 Type: N/A Wheel 150 feet: 9 Type: N/A PT Plan Problem List Problem List: Activity Tolerance, Functional Strength, Safety, Balance, Gait, Transfer, Bed Mobility, ROM Treatment/Plan Treatment Plan: Continue Plan of Care Treatment Plan: Bed Mobility, Education, Functional Activity Mallika, Functional Strength, Group Therapy, Gait, Safety, Therapeutic Exercise, Transfers Treatment Duration: Jun 20, 2021 Frequency: At least 5 of 7 days/Wk (IRF) Estimated Hrs Per Day: 1.5 hours per day Patient and/or Family Agrees t: Yes Safety Risks/Education Patient Education: Gait Training, Transfer Techniques, Reviewed Precautions, Correct Positioning, Safety Issues Teaching Recipient: Patient Teaching Methods: Demonstration, Discussion Response to Teaching: Verbalize Understanding, Reinforcement Needed Time/GCodes Time In: 1000 Time Out: 1130 Total Billed Treatment Time: 90 Total Billed Treatment 1 visit EX 30 min GT 15 min FA 15 min NM 30' CHARLEE VELASCO PT Jun 09, 2021 12:07
[2021-06-09] MEDS ORDERED: HYDR25TA4 PO (14:35)
[2021-06-09] MEDS ORDERED: SOTA80TA62 PO (14:35)
[2021-06-09] MEDS ORDERED: AMLO-250 PO (14:35)
[2021-06-09] MEDS ORDERED: ATOR80TA76 PO (14:35)
[2021-06-09] MEDS ORDERED: LISI40TA9 PO (14:35)
[2021-06-09 19:56] VITALS: BP 155/94
[2021-06-09] MEDS: ENOXAPARIN 40 MG/0.4 ML (LOVENOX) SYR SC SCH (20:24)
[2021-06-09] MEDS: eZETimibe 10 MG (ZETIA) TABLET PO SCH (20:24)
[2021-06-09] MEDS: MELATONIN 3 MG TABLET PO PRN (23:53)
[2021-06-10] MEDS: ACETAMINOPHEN 325 MG TABLET PO PRN ×2 (04:58→11:41)
--- NOTE | 2021-06-10 06:05 | PM&R Progress Note ---
Subjective HPI/CC On Admission Date Seen by Provider: Jun 10, 2021 Time Seen by Provider: 12:00 Subjective/Events-last exam 06/10/2021: Patient doing really really well Pain is really well controlled Mendez catheter remains Bowels are moving 06/09/2021: Patient doing really well Moving around really well Mendez catheter remains Spoke with urology about the plan Bowels moving 06/08/2021: Patient has no new issues Ambulating around really well Mendez catheter will remain in at discharge then will return once he can have a TURP Leg will have to be in a position and surgery that could pose risk for fracture so will need that healed before surgery Bowels are not moving ordered laxatives 06/07/2021: Pt is doing really well Proscar ordered Amiodaraone is now 200 mg Discontinue mendez and if pt can't urinate will need to put it back in Zetia will be given due to elevated liver enzymes from Statin therapy Review of Systems General: Fatigue, Malaise Musculoskeletal: foot pain Objective Exam Vital Signs Vital Signs Date Time Temp Pulse Resp B/P (MAP) Pulse Ox O2 Delivery O2 Flow Rate FiO2 06/10/21 20:20 Room Air 06/10/21 19:31 36.2 55 16 124/74 (91) 97 Capillary Refill : General Appearance: No Apparent Distress, WD/WN, Chronically ill HEENT: PERRL/EOMI, Normal ENT Inspection, Pharynx Normal Neck: Full Range of Motion, Normal Inspection, Non Tender, Supple, Carotid Bruit Respiratory: Chest Non Tender, Lungs Clear, Normal Breath Sounds, No Accessory Muscle Use, No Respiratory Distress Cardiovascular: Regular Rate, Rhythm, No Edema, No Gallop, No JVD, No Murmur, Normal Peripheral Pulses Gastrointestinal: Normal Bowel Sounds, No Organomegaly, No Pulsatile Mass, Non Tender, Soft Back: Normal Inspection, No CVA Tenderness, No Vertebral Tenderness Extremity: Normal Capillary Refill, Normal Inspection, Normal Range of Motion, Non Tender, No Calf Tenderness, No Pedal Edema Neurologic/Psychiatric: Alert, Oriented x3, No Motor/Sensory Deficits, Normal Mood/Affect, Motor Weakness Skin: Normal Color, Warm/Dry Lymphatic: No Adenopathy Results/Procedures Lab Patient resulted labs reviewed. FIM Transfers Therapy Code Descriptions/Definitions Functional [place] Measure: 0=Not Assessed/NA 4=Minimal Assistance 1=Total Assistance 5=Supervision or Setup 2=Maximal Assistance 6=Modified [place] 3=Moderate Assistance 7=Complete IndependenceSCALE: Activities may be completed with or without assistive devices. 8-Nvfhylhyat-rffqowd completes the activity by him/herself with no assistance from a helper. 5-Set-up or Clean-up Assistance-helper sets up or cleans up; patient completes activity. Lane assists only prior to or following the activity. 4-Supervision or Touching Assistance-helper provides verbal cues and/or touching/steadying and/or contact guard assistance as patient completes activity. Assistance may be provided throughout the activity or intermittently. 3-Partial/Moderate Assistance-helper does LESS THAN HALF the effort. Lane lifts, holds or supports trunk or limbs, but provides less than half the effort. 2-Substantial/Maximal Assistance-helper does MORE THAN HALF the effort. Lane lifts or holds trunk or limbs and provides more than half the effort. 3-Wlafncdec-ahtpzt does ALL the effort. Patient does none of the effort to complete the activity. Or, the assistance of 2 or more helpers is required for the patient to complete the activity. If activity was not attempted, code reason: 7-Patient Refused. 9-Not Applicable-not attempted and the patient did not perform the activity before the current illness, exacerbation or injury. 10-Not Attempted due to Environmental Limitations-(lack of equipment, weather restraints, etc.). 88-Not Attempted due to Medical Conditions or Safety Concerns. Roll Left to Right (QC): 5 Sit to Lying (QC): 6 Sit to Stand (QC): 4 Chair/Vsu-xc-Mqurr Xfer(QC): 4 Car Transfer (QC): 3 Gait Training Does the Patient Walk?: Yes Distance: 250' Walk 10 feet (QC): 4 Walk 50 ft with 2 Turns(QC): 4 Walk 150 ft (QC): 4 Walking 10ft/uneven surface-QC: 4 Gait Assistive Device: FWW Wheelchair Training Does the Pt Use a Wheelchair?: No Wheel 50 ft with 2 turns (QC): 9 Wheel 150 ft (QC): 9 Type of Wheelchair: N/A Stair Training 1 Step (curb) (QC): 4 4 Steps (QC): 88 12 Steps (QC): 88 Balance Picking up an Object (QC): 4 ADL-Treatment Eating (QC): 6 Oral Hygiene (QC): 6 (IND standing at sink) Shower/Bathe Self (QC): 3 (min A with drying buttocks in stand) Upper Body Dressing (QC): 5 Lower Body Dressing (QC): 3 (Min A in stand for pant hike) On/Off Footwear (QC): 3 (min A with CAM boot) Toileting Hygiene (QC): 3 (Min A ) Assessment/Plan Assessment and Plan Assess & Plan/Chief Complaint Assessment: R distal fibular fracture 3 weeks ago now partial weight bearing per Dr Albright 06/06/21 NSTEMI, s/p cardioversion on 05/19 Ventricular tachycardia recurrent with hypotension prompting transfer to ICU on 05/30/2021 on lidocaine drip and transferred to [place] s/p ablation Cardiogenic shock, resolved T2DM Arrhythmogenic Right Ventricular Dysplasia NEVAEH, resolved Cerebral palsy history BPH DVT risk Urinary retention requiring mendez cath reinsertion Chronic Constipation s/p UTI Enterococcus placed on Vanco empirically 05/26/2021 then changed to Amoxil after sensitivities completed last admit Anemia of chronic disease Elevated liver enzymes Anemia Plan: Rehab protocol Pain control Partial weight bearing Urology consult Dr Albright consult Dr Farrar consult Check TSH to labs 06/07/2021: Monitor liver function Appreciate cardiology Appreciate urology Appreciate orthopedics 06/08/2021: Keep Mendez catheter in Supportive care 06/09/2021: Supportive care Maintain Mendez 06/10/2021: Supportive care Maintain Mendez Pain control (1) Ventricular tachycardia Status: Acute Assessment & Plan: He is now status post ablation for the ventricular tachycardia. He has a MANDREL CLEANER-D device in place. He continue on amiodarone amiodarone 200 mg daily. He will need long-term monitoring for screening for development of side effects.. (2) Arrhythmogenic right ventricular dysplasia Status: Acute Assessment & Plan: We will continue with the amiodarone. He has a defibrillator in place. (3) Right heart failure Assessment & Plan: He has significant right ventricular enlargement and dysfunction. At the present time he does not have any overt signs of right heart failure but he could develop issues with this in the future. Once he is discharged home, I will consider an outpatient referral to the advanced heart failure team at [facility]. Qualifiers: Heart failure chronicity: chronic Qualified Codes: I50.812 - Chronic right heart failure (4) Primary hypertension Assessment & Plan: He is on metoprolol tartrate and blood pressures are intermittently elevated. I will increase the dose of metoprolol. (5) Mixed hyperlipidemia Assessment & Plan: I have started him on ezetimibe. He had some sort of reaction to statin medications in the past. VALERIY POTTS DO Jun 10, 2021 06:05
[2021-06-10] MEDS: CYANOCOBALAMIN 1,000 MCG (VITAMIN B-12) TABLET PO SCH (08:10)
[2021-06-10] MEDS: SENNA W/DOCUSATE (SENOKOT S) TABLET PO SCH ×2 (08:10→20:00)
[2021-06-10] MEDS: ALLOPURINOL 100 MG (ZYLOPRIM) TAB PO SCH (08:10)
[2021-06-10] MEDS: meTOprolol TARTRATE 25 MG (LOPRESSOR) TABLET PO SCH ×2 (08:10→20:00)
[2021-06-10] MEDS: ASPIRIN 81 MG CHEW (CHILDREN'S ASA) PO SCH (08:10)
[2021-06-10] MEDS: FINASTERIDE (PROSCAR) 5 MG TAB PO SCH (08:10)
[2021-06-10] MEDS: TAMSULOSIN 0.4 MG (FLOMAX) CAP PO SCH (08:10)
[2021-06-10] MEDS: DOCUSATE SODIUM 100 MG (COLACE) CAP PO SCH ×2 (08:10→20:00)
[2021-06-10] MEDS: AMIODARONE 200 MG (CORDARONE) TAB PO SCH (08:11)
[2021-06-10] MEDS: MULTIVIT W/MINERALS TAB (THERAGRAN M) PO SCH (08:11)
[2021-06-10] MEDS: FAMOTIDINE 20 MG (PEPCID) TABLET PO SCH (08:11)
[2021-06-10] MEDS: ASCORBIC ACID (VIT C) 500 MG TABLET PO SCH (08:11)
[2021-06-10] MEDS: polyethylene glycoL POWDER 17 GM (MIRALAX) PACK PO SCH ×2 (08:12→20:00)
[2021-06-10 08:13] VITALS: BP 143/80
--- NOTE | 2021-06-10 08:26 | Occupational Ther Daily Note ---
OT Current Status-Daily Note Subjective Pt in bed finishing breakfast, agreeable to OT Tx. Mental Status/Objective Patient Orientation: Normal For Age Attachments: Other-See Comments (BRENT HOWARD) ADL-Treatment Therapy Code Descriptions/Definitions Functional [place] Measure: 0=Not Assessed/NA 4=Minimal Assistance 1=Total Assistance 5=Supervision or Setup 2=Maximal Assistance 6=Modified [place] 3=Moderate Assistance 7=Complete IndependenceSCALE: Activities may be completed with or without assistive devices. 7-Rehzpxacme-yhnkxcr completes the activity by him/herself with no assistance from a helper. 5-Set-up or Clean-up Assistance-helper sets up or cleans up; patient completes activity. [place] assists only prior to or following the activity. 4-Supervision or Touching Assistance-helper provides verbal cues and/or touching/steadying and/or contact guard assistance as patient completes activity. Assistance may be provided throughout the activity or intermittently. 3-Partial/Moderate Assistance-helper does LESS THAN HALF the effort. [place] lift s, holds or supports trunk or limbs, but provides less than half the effort. 2-Substantial/Maximal Assistance-helper does MORE THAN HALF the effort. [place] lifts or holds trunk or limbs and provides more than half the effort. 3-Pyitywudo-oupovg does ALL the effort. Patient does none of the effort to complete the activity. Or, the assistance of 2 or more helpers is required for the patient to complete the activity. If activity was not attempted, code reason: 7-Patient Refused. 9-Not Applicable-not attempted and the patient did not perform the activity before the current illness, exacerbation or injury. 10-Not Attempted due to Environmental Limitations-(lack of equipment, weather restraints, etc.). 88-Not Attempted due to Medical Conditions or Safety Concerns. Eating (QC): 6 (IND with breakfast) Oral Hygiene (QC): 6 (IND seated at sink.) Shower/Bathe Self (QC): 5 (set up seated on SC. ) Upper Body Dressing (QC): 5 (set up ) Lower Body Dressing (QC): 5 (set up with shorts.) On/Off Footwear: 3 (Min A with CAM boot, pt able to complete L shoe with set up.) Other Treatment Pt in bed, finished breakfast. He transferred supine to sit EOB, SBA, then used FWW to transfer to chair at bathroom sink. Pt completed oral care, shaving and grooming tasks, seated, independently. Pt then transferred to IN, doffed clothes, completed shower, then donned clothes at IN. OT reminded pt about precaution of having CAM boot on prior to any stands, pt completed all showering and dressing tasks seated when boot was off. Pt transferred to recliner, nurse present to provide medications as OT cleaned up from ADLs. Pt used FWW to perform functional mobility to therapy gym, [facility]. In order to increase BUE Strength and activity tolerance, pt completed x15 mins on arm bike, 20 Watt resistance. Pt returned to his room, SBA with FWW, transferring to [facility]. Post tx, pt seated in recliner, call light in reach and all needs met. Education OT Patient Education: Correct positioning, Energy conservation, Modified ADL techniques, Progress toward Goal/Update tx plan, Purpose of tx/functional activities Teaching Recipient: Patient Teaching Methods: Discussion Response to Teaching: Verbalize Understanding OT Short Term Goals Short Term Goals Time Frame: Jun 21, 2021 Shower/bathe self: 5 Lower body dressin Putting on/taking off footwear: 5 OT Retirement Goals Certified Industrial Hygienist Goals Time Frame: July 07, 2021 Eating (QC): 6 Oral Hygiene (QC): 6 Toileting Hygiene (QC): 6 Shower/Bathe Self (QC): 6 Upper Body Dressing (QC): 6 Lower Body Dressing (QC): 6 On/Off Footwear (QC): 6 1=Demonstrate adherence to instructed precautions during ADL tasks. 2=Patient will verbalize/demonstrate understanding of assistive devices/modifications for ADL. 3=Patient will improve strength/tolerance for activity to enable patient to perform ADL's. OT Education/Plan Problem List/Assessment Assessment: Decreased Activ Tolerance, Decreased UE Strength, Impaired Funct Balance, Impaired I ADL's, Impaired Self-Care Skills Discharge Recommendations Plan/Recommendations: Continue POC Treatment Plan/Plan of Care Patient would benefit from OT for education, treatment and training to promote independence in ADL's, mobility, safety and/or upper extremity function for ADL's. Plan of Care: ADL Retraining, Functional Mobility, Group Exercise/Act as Ind, UE Funct Exercise/Act Treatment Duration: July 07, 2021 Frequency: At least 5 of 7 days/Wk (IRF) Estimated Hrs Per Day: 1.5 hours per day Agreement: Yes Rehab Potential: Fair Time/GCodes Start Time: 07:15 Stop Time: 08:45 Total Time Billed (hr/min): 90 Billed Treatment Time 1, ADL 5 (75'), EX (15') JOSY RAO OT Jun 10, 2021 08:26
--- NOTE | 2021-06-10 12:18 | Physical Therapy Daily Note ---
PT Daily Note-Current Subjective Pt in bed upon arrival and agrees to PT. Pt reports that his ankle is only hurting a little bit. Reports his pain 5/10 post treatment. Pain Numeric Pain Scale: 5-Moderate Pain Location: Right Location Body Site: Ankle Mental Status Patient Orientation: Person, Place, Time Attachments: Duong Catheter Transfers SCALE: Activities may be completed with or without assistive devices. 7-Iynkbbozkm-fjpfhen completes the activity by him/herself with no assistance from a helper. 5-Set-up or Clean-up Assistance-helper sets up or cleans up; patient completes activity. [place] assists only prior to or following the activity. 4-Supervision or Touching Assistance-helper provides verbal cues and/or touching/steadying and/or contact guard assistance as patient completes a ctivity. Assistance may be provided throughout the activity or intermittently. 3-Partial/Moderate Assistance-helper does LESS THAN HALF the effort. [place] lifts, holds or supports trunk or limbs, but provides less than half the effort. 2-Substantial/Maximal Assistance-helper does MORE THAN HALF the effort. [place] lifts or holds trunk or limbs and provides more than half the effort. 7-Rwinmkhct-hgluct does ALL the effort. Patient does none of the effort to complete the activity. Or, the assistance of 2 or more helpers is required for the patient to complete the activity. If activity was not attempted, code reason: 7-Patient Refused. 9-Not Applicable-not attempted and the patient did not perform the activity before the current illness, exacerbation or injury. 10-Not Attempted due to Environmental Limitations-(lack of equipment, weather restraints, etc.). 88-Not Attempted due to Medical Conditions or Safety Concerns. Sit to Lying (QC): 5 Lying to Sitting/Side of Bed(Q: 5 Sit to Stand (QC): 4 Weight Bearing Right Lower Extremity: Right Partial Weight Bearing Left Lower Extremity: Left Full Weight Bearing Gait Training Does the Patient Walk?: Yes Distance: 200' x 1, 150' x 1 Walk 10 feet (QC): 5 Walk 50 ft with 2 Turns(QC): 5 Walk 150 ft (QC): 4 Gait Persons Needed: 1 Gait Assistive Device: FWW Exercises Supine Ex: Bridging, Heel Slides, Short Arc Quads, Scooting, Straight leg raise, Hip abd/add Supine Reps: 10 Seated Therapy Exercises: Sit to stand, Long arc quads, Hip flexion Seated Reps: [address] Ex=Flex, Abd, Ext, Mini squats, Side steps Standing Reps: 10 NuStep Minutes: 20 NuStep Workload: 3 Treatments Pt in bed upon arrival and agrees to PT. Pt then dons (L) shoe and then amb to therapy gym 150'. Pt then TFs to nustep. Then pt amb to // bars. Pt then performs all standings exs and requires prolonged rest breaks between each ex. Pt then performs seated exs and then amb 200' and back to room. Pt then is administered pain meds by nurse and then pt performs all supine exs. Pt in bed upon departure w/ all needs met and call light nearby. Assessment Current Status: Good Progress Pt requires skilled verbal cues for correct foot placement for all TFs and to perform all exs correctly. Requires CGA/SBA for all TFs. . PT Short Term Goals Short Term Goals Time Frame: Jun 13, 2021 Roll Left & Right: 6 Sit to lyin Lying to sitting on side of be: 6 Sit to stand: 4 Chair/yxa-ol-qltme transfer: 4 Walk 10 feet: 4 Walk 50 feet with two turns: 4 Walk 150 feet: 4 PT [facility] Goals Treasurer Goals PT [facility] Goals Time Frame: Jun 27, 2021 Roll Left & Right (QC): 6 Sit to Lying (QC): 6 Lying-Sitting on Side/Bed(QC): 6 Sit to Stand (QC): 6 Chair/Stk-qi-Tkzct Xfer(QC): 6 Toilet Transfer (QC): 6 Car Transfer (QC): 6 Does the Patient Walk: Yes Walk 10 feet (QC): 6 Walk 50ft with 2 Turns (QC): 6 Walk 150 ft (QC): 6 Walking 10ft on Uneven Surface: 6 1 Step (curb) (QC): 6 4 Steps (QC): 9 12 Steps (QC): 9 Picking up an Object (QC): 6 Does the Pt use WC or Scooter?: No Wheel 50 feet with 2 turns (QC: 9 Type: N/A Wheel 150 feet: 9 Type: N/A PT Plan Problem List Problem List: Activity Tolerance, Functional Strength Treatment/Plan Treatment Plan: Continue Plan of Care Treatment Plan: Bed Mobility, Education, Functional Activity Mallika, Functional Strength, Group Therapy, Gait, Safety, Therapeutic Exercise, Transfers Treatment Duration: Jun 20, 2021 Frequency: At least 5 of 7 days/Wk (IRF) Estimated Hrs Per Day: 1.5 hours per day Patient and/or Family Agrees t: Yes Safety Risks/Education Patient Education: Correct Positioning Teaching Recipient: Patient Teaching Methods: Discussion Response to Teaching: Return Demonstration Time/GCodes Time In: 1025 Time Out: 1155 Total Billed Treatment Time: 90 Total Billed Treatment 1, Ex x 4 (70 min), GT x 2 (20 min) CECILIO ROSS AUTOMATION APPLICATION ENGINEER Jun 10, 2021 12:18
[2021-06-10 19:31] VITALS: BP 124/74
[2021-06-10] MEDS: eZETimibe 10 MG (ZETIA) TABLET PO SCH (20:00)
[2021-06-10] MEDS: ENOXAPARIN 40 MG/0.4 ML (LOVENOX) SYR SC SCH (20:00)
[2021-06-11] MEDS: MELATONIN 3 MG TABLET PO PRN ×2 (00:10→20:33)
[2021-06-11] MEDS: ACETAMINOPHEN 325 MG TABLET PO PRN ×2 (05:22→23:45)
--- NOTE | 2021-06-11 07:41 | PM&R Progress Note ---
Subjective HPI/CC On Admission Date Seen by Provider: Jun 11, 2021 Time Seen by Provider: 12:30 Subjective/Events-last exam 06/11/2021: Patient doing really well Moving around well Pain is controlled Bowels are not moving so will initiate suppository if needed Mendez catheter remains 06/10/2021: Patient doing really really well Pain is really well controlled Mendez catheter remains Bowels are moving 06/09/2021: Patient doing really well Moving around really well Mendez catheter remains Spoke with urology about the plan Bowels moving 06/08/2021: Patient has no new issues Ambulating around really well Mendez catheter will remain in at discharge then will return once he can have a TURP Leg will have to be in a position and surgery that could pose risk for fracture so will need that healed before surgery Bowels are not moving ordered laxatives 06/07/2021: Pt is doing really well Proscar ordered Amiodaraone is now 200 mg Discontinue mendez and if pt can't urinate will need to put it back in Zetia will be given due to elevated liver enzymes from Statin therapy Review of Systems General: Fatigue, Malaise Gastrointestinal: Constipation Musculoskeletal: leg pain, foot pain Objective Exam Vital Signs Vital Signs Date Time Temp Pulse Resp B/P (MAP) Pulse Ox O2 Delivery O2 Flow Rate FiO2 06/11/21 20:30 Room Air 06/11/21 20:17 36.1 58 16 134/78 (96) 96 Capillary Refill : General Appearance: No Apparent Distress, WD/WN, Chronically ill HEENT: PERRL/EOMI, Normal ENT Inspection, Pharynx Normal Neck: Full Range of Motion, Normal Inspection, Non Tender, Supple, Carotid Bruit Respiratory: Chest Non Tender, Lungs Clear, Normal Breath Sounds, No Accessory Muscle Use, No Respiratory Distress Cardiovascular: Regular Rate, Rhythm, No Edema, No Gallop, No JVD, No Murmur, Normal Peripheral Pulses Gastrointestinal: Normal Bowel Sounds, No Organomegaly, No Pulsatile Mass, Non Tender, Soft Back: Normal Inspection, No CVA Tenderness, No Vertebral Tenderness Extremity: Normal Capillary Refill, Normal Inspection, Normal Range of Motion, Non Tender, No Calf Tenderness, No Pedal Edema Neurologic/Psychiatric: Alert, Oriented x3, No Motor/Sensory Deficits, Normal Mood/Affect, Motor Weakness Skin: Normal Color, Warm/Dry Lymphatic: No Adenopathy Results/Procedures Lab Patient resulted labs reviewed. FIM Transfers Therapy Code Descriptions/Definitions Functional [place] Measure: 0=Not Assessed/NA 4=Minimal Assistance 1=Total Assistance 5=Supervision or Setup 2=Maximal Assistance 6=Modified [place] 3=Moderate Assistance 7=Complete IndependenceSCALE: Activities may be completed with or without assistive devices. 4-Aajotypobr-hrrwyxk completes the activity by him/herself with no assistance from a helper. 5-Set-up or Clean-up Assistance-helper sets up or cleans up; patient completes activity. [place] assists only prior to or following the activity. 4-Supervision or Touching Assistance-helper provides verbal cues and/or to uching/steadying and/or contact guard assistance as patient completes activity. Assistance may be provided throughout the activity or intermittently. 3-Partial/Moderate Assistance-helper does LESS THAN HALF the effort. [place] lifts, holds or supports trunk or limbs, but provides less than half the effort. 2-Substantial/Maximal Assistance-helper does MORE THAN HALF the effort. [place] lifts or holds trunk or limbs and provides more than half the effort. 9-Ycyjlyncv-fbygrb does ALL the effort. Patient does none of the effort to complete the activity. Or, the assistance of 2 or more helpers is required for the patient to complete the activity. If activity was not attempted, code reason: 7-Patient Refused. 9-Not Applicable-not attempted and the patient did not perform the activity before the current illness, exacerbation or injury. 10-Not Attempted due to Environmental Limitations-(lack of equipment, weather restraints, etc.). 88-Not Attempted due to Medical Conditions or Safety Concerns. Roll Left to Right (QC): 5 Sit to Lying (QC): 5 Sit to Stand (QC): 4 Chair/Kbm-eu-Fhslk Xfer(QC): 4 Car Transfer (QC): 3 Gait Training Does the Patient Walk?: Yes Distance: 200' x 1, 150' x 1 Walk 10 feet (QC): 5 Walk 50 ft with 2 Turns(QC): 5 Walk 150 ft (QC): 4 Walking 10ft/uneven surface-QC: 4 Gait Persons Needed: 1 Gait Assistive Device: FWW Wheelchair Training Does the Pt Use a Wheelchair?: No Wheel 50 ft with 2 turns (QC): 9 Wheel 150 ft (QC): 9 Type of Wheelchair: N/A Stair Training 1 Step (curb) (QC): 4 4 Steps (QC): 88 12 Steps (QC): 88 Balance Picking up an Object (QC): 4 ADL-Treatment Eating (QC): 6 (IND with breakfast) Oral Hygiene (QC): 6 (IND seated at sink.) Shower/Bathe Self (QC): 5 (set up seated on SC. ) Upper Body Dressing (QC): 5 (set up ) Lower Body Dressing (QC): 5 (set up with shorts.) On/Off Footwear (QC): 3 (Min A with CAM boot, pt able to complete L shoe with set up.) Toileting Hygiene (QC): 3 (Min A ) Assessment/Plan Assessment and Plan Assess & Plan/Chief Complaint Assessment: R distal fibular fracture 3 weeks ago now partial weight bearing per Dr Albright 06/06/21 NSTEMI, s/p cardioversion on 05/19 Ventricular tachycardia recurrent with hypotension prompting transfer to ICU on 05/30/2021 on lidocaine drip and transferred to [place] s/p ablation Cardiogenic shock, resolved T2DM Arrhythmogenic Right Ventricular Dysplasia NEVAEH, resolved Cerebral palsy history BPH DVT risk Urinary retention requiring mendez cath reinsertion Chronic Constipation s/p UTI Enterococcus placed on Vanco empirically 05/26/2021 then changed to Amoxil after sensitivities completed last admit Anemia of chronic disease Elevated liver enzymes Anemia Plan: Rehab protocol Pain control Partial weight bearing Urology consult Dr Albright consult Dr Farrar consult Check TSH to labs 06/07/2021: Monitor liver function Appreciate cardiology Appreciate urology Appreciate orthopedics 06/08/2021: Keep Mendez catheter in Supportive care 06/09/2021: Supportive care Maintain Mendez 06/10/2021: Supportive care Maintain Mendez Pain control 06/11/2021 Supportive care Maintain Mendez (1) Ventricular tachycardia Status: Acute Assessment & Plan: He is now status post ablation for the ventricular tachycardia. He has a [employer]D device in place. He continue on amiodarone amiodarone 200 mg daily. He will need long-term monitoring for screening for development of side effects.. (2) Arrhythmogenic right ventricular dysplasia Status: Acute Assessment & Plan: We will continue with the amiodarone. He has a defibrillator in place. (3) Right heart failure Assessment & Plan: He has significant right ventricular enlargement and dysfunction. At the present time he does not have any overt signs of right h eart failure but he could develop issues with this in the future. Once he is discharged home, I will consider an outpatient referral to the advanced heart failure team at [facility]. Qualifiers: Heart failure chronicity: chronic Qualified Codes: I50.812 - Chronic right heart failure (4) Primary hypertension Assessment & Plan: He is on metoprolol tartrate and blood pressures are intermittently elevated. I will increase the dose of metoprolol. (5) Mixed hyperlipidemia Assessment & Plan: I have started him on ezetimibe. He had some sort of reaction to statin medications in the past. VALERIY POTTS DO Jun 11, 2021 07:41
[2021-06-11 08:17] VITALS: BP 125/77
[2021-06-11] MEDS: polyethylene glycoL POWDER 17 GM (MIRALAX) PACK PO SCH ×2 (09:01→20:30)
[2021-06-11] MEDS: FINASTERIDE (PROSCAR) 5 MG TAB PO SCH (09:01)
[2021-06-11] MEDS: ALLOPURINOL 100 MG (ZYLOPRIM) TAB PO SCH (09:01)
[2021-06-11] MEDS: MULTIVIT W/MINERALS TAB (THERAGRAN M) PO SCH (09:01)
[2021-06-11] MEDS: FAMOTIDINE 20 MG (PEPCID) TABLET PO SCH (09:01)
[2021-06-11] MEDS: ASCORBIC ACID (VIT C) 500 MG TABLET PO SCH (09:01)
[2021-06-11] MEDS: AMIODARONE 200 MG (CORDARONE) TAB PO SCH (09:01)
[2021-06-11] MEDS: SENNA W/DOCUSATE (SENOKOT S) TABLET PO SCH ×2 (09:02→20:33)
[2021-06-11] MEDS: DOCUSATE SODIUM 100 MG (COLACE) CAP PO SCH ×2 (09:02→20:33)
[2021-06-11] MEDS: TAMSULOSIN 0.4 MG (FLOMAX) CAP PO SCH (09:02)
[2021-06-11] MEDS: CYANOCOBALAMIN 1,000 MCG (VITAMIN B-12) TABLET PO SCH (09:02)
[2021-06-11] MEDS: meTOprolol TARTRATE 25 MG (LOPRESSOR) TABLET PO SCH ×2 (09:02→20:34)
[2021-06-11] MEDS: ASPIRIN 81 MG CHEW (CHILDREN'S ASA) PO SCH (09:02)
[2021-06-11 20:17] VITALS: BP 134/78
[2021-06-11] MEDS: eZETimibe 10 MG (ZETIA) TABLET PO SCH (20:33)
[2021-06-11] MEDS: ENOXAPARIN 40 MG/0.4 ML (LOVENOX) SYR SC SCH (20:34)
--- NOTE | 2021-06-12 06:07 | PM&R Progress Note ---
Subjective HPI/CC On Admission Date Seen by Provider: Jun 12, 2021 Time Seen by Provider: 09:30 Subjective/Events-last exam 06/12/2021: Patient doing well Moving around well Pain is controlled Mendez catheter remains 06/11/2021: Patient doing really well Moving around well Pain is controlled Bowels are not moving so will initiate suppository if needed Mendez catheter remains 06/10/2021: Patient doing really really well Pain is really well controlled Mendez catheter remains Bowels are moving 06/09/2021: Patient doing really well Moving around really well Mendez catheter remains Spoke with urology about the plan Bowels moving 06/08/2021: Patient has no new issues Ambulating around really well Mendez catheter will remain in at discharge then will return once he can have a TURP Leg will have to be in a position and surgery that could pose risk for fracture so will need that healed before surgery Bowels are not moving ordered laxatives 06/07/2021: Pt is doing really well Proscar ordered Amiodaraone is now 200 mg Discontinue mendez and if pt can't urinate will need to put it back in Zetia will be given due to elevated liver enzymes from Statin therapy Review of Systems General: Fatigue, Malaise Musculoskeletal: leg pain Objective Exam Vital Signs Vital Signs Date Time Temp Pulse Resp B/P (MAP) Pulse Ox O2 Delivery O2 Flow Rate FiO2 06/12/21 20:15 95 Room Air 06/12/21 19:36 36.5 63 18 114/68 (83) Capillary Refill : General Appearance: No Apparent Distress, WD/WN, Chronically ill HEENT: PERRL/EOMI, Normal ENT Inspection, Pharynx Normal Neck: Full Range of Motion, Normal Inspection, Non Tender, Supple, Carotid Bruit Respiratory: Chest Non Tender, Lungs Clear, Normal Breath Sounds, No Accessory Muscle Use, No Respiratory Distress Cardiovascular: Regular Rate, Rhythm, No Edema, No Gallop, No JVD, No Murmur, Normal Peripheral Pulses Gastrointestinal: Normal Bowel Sounds, No Organomegaly, No Pulsatile Mass, Non Tender, Soft Back: Normal Inspection, No CVA Tenderness, No Vertebral Tenderness Extremity: Normal Capillary Refill, Normal Inspection, Normal Range of Motion, Non Tender, No Calf Tenderness, No Pedal Edema Neurologic/Psychiatric: Alert, Oriented x3, No Motor/Sensory Deficits, Normal Mood/Affect, Motor Weakness Skin: Normal Color, Warm/Dry Lymphatic: No Adenopathy Results/Procedures Lab Laboratory Tests 06/12/21 06:25 Patient resulted labs reviewed. FIM Transfers Therapy Code Descriptions/Definitions Functional [place] Measure: 0=Not Assessed/NA 4=Minimal Assistance 1=Total Assistance 5=Supervision or Setup 2=Maximal Assistance 6=Modified [place] 3=Moderate Assistance 7=Complete IndependenceSCALE: Activities may be completed with or without assistive devices. 5-Fqsicsyqri-cadtxbt completes the activity by him/herself with no assistance from a helper. 5-Set-up or Clean-up Assistance-helper sets up or cleans up; patient completes activity. [place] assists only prior to or following the activity. 4-Supervision or Touching Assistance-helper provides verbal cues and/or touching/steadying and/or contact guard assistance as patient completes activity. Assistance may be provided throughout the activity or intermittently. 3-Partial/Moderate Assistance-helper does LESS THAN HALF the effort. [place] lifts, holds or supports trunk or limbs, but provides less than half the effort. 2-Substantial/Maximal Assistance-helper does MORE THAN HALF the effort. [place] lifts or holds trunk or limbs and provides more than half the effort. 8-Yunnmfptm-vhioox does ALL the effort. Patient does none of the effort to complete the activity. Or, the assistance of 2 or more helpers is required for the patient to complete the activity. If activity was not attempted, code reason: 7-Patient Refused. 9-Not Applicable-not attempted and the patient did not perform the activity before the current illness, exacerbation or injury. 10-Not Attempted due to Environmental Limitations-(lack of equipment, weather restraints, etc.). 88-Not Attempted due to Medical Conditions or Safety Concerns. Roll Left to Right (QC): 5 Sit to Lying (QC): 5 Sit to Stand (QC): 4 Chair/Fns-fc-Rzdwt Xfer(QC): 4 Car Transfer (QC): 3 Gait Training Does the Patient Walk?: Yes Distance: 200' x 1, 150' x 1 Walk 10 feet (QC): 5 Walk 50 ft with 2 Turns(QC): 5 Walk 150 ft (QC): 4 Walking 10ft/uneven surface-QC: 4 Gait Persons Needed: 1 Gait Assistive Device: FWW Wheelchair Training Does the Pt Use a Wheelchair?: No Wheel 50 ft with 2 turns (QC): 9 Wheel 150 ft (QC): 9 Type of Wheelchair: N/A Stair Training 1 Step (curb) (QC): 4 4 Steps (QC): 88 12 Steps (QC): 88 Balance Picking up an Object (QC): 4 ADL-Treatment Eating (QC): 6 (IND with breakfast) Oral Hygiene (QC): 6 (IND seated at sink.) Shower/Bathe Self (QC): 5 (set up seated on SC. ) Upper Body Dressing (QC): 5 (set up ) Lower Body Dressing (QC): 5 (set up with shorts.) On/Off Footwear (QC): 3 (Min A with CAM boot, pt able to complete L shoe with set up.) Toileting Hygiene (QC): 3 (Min A ) Assessment/Plan Assessment and Plan Assess & Plan/Chief Complaint Assessment: R distal fibular fracture 3 weeks ago now partial weight bearing per Dr Albright 06/06/21 NSTEMI, s/p cardioversion on 05/19 Ventricular tachycardia recurrent with hypotension prompting transfer to ICU on 05/30/2021 on lidocaine drip and transferred to [place] s/p ablation Cardiogenic shock, resolved T2DM Arrhythmogenic Right Ventricular Dysplasia NEVAEH, resolved Cerebral palsy history BPH DVT risk Urinary retention requiring mendez cath reinsertion Chronic Constipation s/p UTI Enterococcus placed on Vanco empirically 05/26/2021 then changed to Amoxil after sensitivities completed last admit Anemia of chronic disease Elevated liver enzymes Anemia Plan: Rehab protocol Pain control Partial weight bearing Urology consult Dr Albright consult Dr Farrar consult Check TSH to labs 06/07/2021: Monitor liver function Appreciate cardiology Appreciate urology Appreciate orthopedics 06/08/2021: Keep Mendez catheter in Supportive care 06/09/2021: Supportive care Maintain Mendez 06/10/2021: Supportive care Maintain Emndez Pain control 06/11/2021 Supportive care Maintain Mendez 06/12/2021: Supportive care Maintain Mendez (1) Ventricular tachycardia Status: Acute Assessment & Plan: He is now status post ablation for the ventricular tachycardia. He has a [employer]D device in place. He continue on amiodarone amiodarone 200 mg daily. He will need long-term monitoring for screening for development of side effects.. (2) Arrhythmogenic right ventricular dysplasia Status: Acute Assessment & Plan: We will continue with the amiodarone. He has a defibrillator in place. (3) Right heart failure Assessment & Plan: He has significant right ventricular enlargement and dysfunction. At the present time he does not have any overt signs of right hear t failure but he could develop issues with this in the future. Once he is discharged home, I will consider an outpatient referral to the advanced heart failure team at [facility]. Qualifiers: Heart failure chronicity: chronic Qualified Codes: I50.812 - Chronic right heart failure (4) Primary hypertension Assessment & Plan: He is on metoprolol tartrate and blood pressures are intermittently elevated. I will increase the dose of metoprolol. (5) Mixed hyperlipidemia Assessment & Plan: I have started him on ezetimibe. He had some sort of reaction to statin medications in the past. VALERIY POTTS DO Jun 12, 2021 06:07
[2021-06-12 06:33] LABS: BASOPHILS % (AUTO) 1 % (0-10); EOSINOPHILS # (AUTO) 0.3 10^3/uL (0.0-0.3); EOSINOPHILS % (AUTO) 3 % (0-10); HEMATOCRIT 35 % (40-54); HEMOGLOBIN 11.5 g/dL (13.3-17.7); LYMPHOCYTES # (AUTO) 1.5 10^3/uL (1.0-4.0); LYMPHOCYTES % (AUTO) 20 % (12-44); MEAN CORPUSCULAR HEMOGLOBIN 33 pg (25-34); MEAN CORPUSCULAR HGB CONC 33 g/dL (32-36); MEAN CORPUSCULAR VOLUME 100 fL (80-99); MEAN PLATELET VOLUME 9.3 fL (9.0-12.2); MONOCYTES # (AUTO) 0.7 10^3/uL (0.0-1.0); MONOCYTES % (AUTO) 9 % (0-12); NEUTROPHILS # (AUTO) 4.9 10^3/uL (1.8-7.8); NEUTROPHILS % (AUTO) 67 % (42-75); PLATELET COUNT 280 10^3/uL (130-400); WHITE BLOOD COUNT 7.3 10^3/uL (4.3-11.0)
[2021-06-12 06:54] LABS: ALBUMIN 3.4 GM/DL (3.2-4.5); BILIRUBIN,TOTAL 0.7 MG/DL (0.1-1.0); CREATININE SERUM 1.1 MG/DL (0.60-1.30); POTASSIUM 4.3 MMOL/L (3.6-5.0); TOTAL PROTEIN 7.1 GM/DL (6.4-8.2)
[2021-06-12 07:14] VITALS: BP 137/71
--- NOTE | 2021-06-12 08:21 | Occupational Ther Daily Note ---
OT Current Status-Daily Note Subjective Pt in bed, agreeable to OT Tx. 2-3/10 pain in R ankle Mental Status/Objective Patient Orientation: Normal For Age Attachments: Duong Catheter, Other-See Comments (BRENT HOWARD) ADL-Treatment Therapy Code Descriptions/Definitions Functional [place] Measure: 0=Not Assessed/NA 4=Minimal Assistance 1=Total Assistance 5=Supervision or Setup 2=Maximal Assistance 6=Modified [place] 3=Moderate Assistance 7=Complete IndependenceSCALE: Activities may be completed with or without assistive devices. 1-Arksdmkcee-qxzkvzc completes the activity by him/herself with no assistance from a helper. 5-Set-up or Clean-up Assistance-helper sets up or cleans up; patient completes activity. [place] assists only prior to or following the activity. 4-Supervision or Touching Assistance-helper provides verbal cues and/or touching/steadying and/or contact guard assistance as patient completes activity. Assistance may be provided throughout the activity or intermittently. 3-Partial/Moderate Assistance-helper does LESS THAN HALF the effort. [place] lifts, holds or supports trunk or limbs, but provides less than half the effort. 2-Substantial/Maximal Assistance-helper does MORE THAN HALF the effort. [place] lifts or holds trunk or limbs and provides more than half the effort. 0-Zntfxzycy-efvnzk does ALL the effort. Patient does none of the effort to complete the activity. Or, the assistance of 2 or more helpers is required for the patient to complete the activity. If activity was not attempted, code reason: 7-Patient Refused. 9-Not Applicable-not attempted and the patient did not perform the activity before the current illness, exacerbation or injury. 10-Not Attempted due to Environmental Limitations-(lack of equipment, weather restraints, etc.). 88-Not Attempted due to Medical Conditions or Safety Concerns. Eating (QC): 6 (IND per pt report.) Oral Hygiene (QC): 6 (IND standing at sink) Other Treatment Pt in bed, transferred supine to sit EOB independently. Pt used FWW to go into bathroom, standing at sink to brush his teeth. He then used FWW to perform functional mobility to therapy gym, SBA. OT tx with focus on increasing BUE strength and activity tolerance. Pt completed arm bike, 20 watt resistance x18 mins, 2 rest breaks. He then removed beads from heavy resistance theraputty in order to increase fine motor coordination with ADLs. Pt able to locate all beads without cues. Pt returned to his room using FWW, SBA, transferring to recliner. Post tx, pt in recliner, call light in reach and all needs met. Education OT Patient Education: Correct positioning, Energy conservation, Exercise program, Modified ADL techniques, Progress toward Goal/Update tx plan, Purpose of tx/functional activities, Rehab process Teaching Recipient: Patient Teaching Methods: Discussion Response to Teaching: Verbalize Understanding OT Short Term Goals Short Term Goals Time Frame: Jun 21, 2021 Shower/bathe self: 5 Lower body dressin Putting on/taking off footwear: 5 OT Intermediate Goals Intermediate Goals Time Frame: July 07, 2021 Eating (QC): 6 Oral Hygiene (QC): 6 Toileting Hygiene (QC): 6 Shower/Bathe Self (QC): 6 Upper Body Dressing (QC): 6 Lower Body Dressing (QC): 6 On/Off Footwear (QC): 6 1=Demonstrate adherence to instructed precautions during ADL tasks. 2=Patient will verbalize/demonstrate understanding of assistive devices/modifications for ADL. 3=Patient will improve strength/tolerance for activity to enable patient to perform ADL's. OT Education/Plan Problem List/Assessment Assessment: Decreased Activ Tolerance, Decreased UE Strength, Impaired I ADL's, Impaired Self-Care Skills Discharge Recommendations Plan/Recommendations: Continue POC Treatment Plan/Plan of Care Patient would benefit from OT for education, treatment and training to promote independence in ADL's, mobility, safety and/or upper extremity function for ADL's. Plan of Care: ADL Retraining, Functional Mobility, Group Exercise/Act as Ind, UE Funct Exercise/Act Treatment Duration: July 07, 2021 Frequency: At least 5 of 7 days/Wk (IRF) Estimated Hrs Per Day: 1.5 hours per day Agreement: Yes Rehab Potential: Fair Time/GCodes Start Time: 08:00 Stop Time: 09:00 Total Time Billed (hr/min): 60 Billed Treatment Time 1, ADL (15'), EX (20'), FA 2 (25') JOSY RAO OT Jun 12, 2021 08:21
[2021-06-12] MEDS: CYANOCOBALAMIN 1,000 MCG (VITAMIN B-12) TABLET PO SCH (08:55)
[2021-06-12] MEDS: ASCORBIC ACID (VIT C) 500 MG TABLET PO SCH (08:55)
[2021-06-12] MEDS: polyethylene glycoL POWDER 17 GM (MIRALAX) PACK PO SCH ×2 (08:55→21:10)
[2021-06-12] MEDS: DOCUSATE SODIUM 100 MG (COLACE) CAP PO SCH ×2 (08:55→21:12)
[2021-06-12] MEDS: ALLOPURINOL 100 MG (ZYLOPRIM) TAB PO SCH (08:55)
[2021-06-12] MEDS: TAMSULOSIN 0.4 MG (FLOMAX) CAP PO SCH (08:55)
[2021-06-12] MEDS: ASPIRIN 81 MG CHEW (CHILDREN'S ASA) PO SCH (08:56)
[2021-06-12] MEDS: FINASTERIDE (PROSCAR) 5 MG TAB PO SCH (08:56)
[2021-06-12] MEDS: SENNA W/DOCUSATE (SENOKOT S) TABLET PO SCH ×2 (08:56→21:13)
[2021-06-12] MEDS: FAMOTIDINE 20 MG (PEPCID) TABLET PO SCH (08:56)
[2021-06-12] MEDS: meTOprolol TARTRATE 25 MG (LOPRESSOR) TABLET PO SCH ×2 (08:56→21:12)
[2021-06-12] MEDS: MULTIVIT W/MINERALS TAB (THERAGRAN M) PO SCH (08:56)
[2021-06-12] MEDS: AMIODARONE 200 MG (CORDARONE) TAB PO SCH (08:56)
[2021-06-12] MEDS: ACETAMINOPHEN 325 MG TABLET PO PRN ×2 (08:56→17:14)
[2021-06-12] MEDS ORDERED: MAGNESIUM CITRATE 300 ML BTL PO ONE (09:30)
--- NOTE | 2021-06-12 09:57 | Physical Therapy Daily Note ---
PT Daily Note-Current Subjective Patient was in chair and compliant to start treatment. Patient has no new complaints Pain Numeric Pain Scale: 3 Location: Right Location Body Site: Ankle Mental Status Patient Orientation: Person, Place, Time, Situation Transfers SCALE: Activities may be completed with or without assistive devices. 1-Fjivbzzycf-jzwpynw completes the activity by him/herself with no assistance from a helper. 5-Set-up or Clean-up Assistance-helper sets up or cleans up; patient completes activity. [place] assists only prior to or following the activity. 4-Supervision or Touching Assistance-helper provides verbal cues and/or touching/steadying and/or contact guard assistance as patient completes activity. Assistance may be provided throughout the activity or intermittently. 3-Partial/Moderate Assistance-helper does LESS THAN HALF the effort. [place] lifts, holds or supports trunk or limbs, but provides less than half the effort. 2-Substantial/Maximal Assistance-helper does MORE THAN HALF the effort. [place] lifts or holds trunk or limbs and provides more than half the effort. 8-Swluljsxp-agbnml does ALL the effort. Patient does none of the effort to complete the activity. Or, the assistance of 2 or more helpers is required for the patient to complete the activity. If activity was not attempted, code reason: 7-Patient Refused. 9-Not Applicable-not attempted and the patient did not perform the activity before the current illness, exacerbation or injury. 10-Not Attempted due to Environmental Limitations-(lack of equipment, weather restraints, etc.). 88-Not Attempted due to Medical Conditions or Safety Concerns. Sit to Stand (QC): 4 CGA Weight Bearing Right Lower Extremity: Right Partial Weight Bearing Left Lower Extremity: Left Full Weight Bearing Gait Training Distance: 200', 150', 100' Walk 10 feet (QC): 4 Walk 50 ft with 2 Turns(QC): 4 Walk 150 ft (QC): 4 Gait Assistive Device: FWW Exercises Standing: Sit to Stand (2 sets 6 reps) NuStep Minutes: 15 NuStep Workload: 4 Treatments Ambulation, LE strengthening Assessment Current Status: Fair Progress Patient still ambulates at a slow but safe pace using FWW and CGA. Patient requires a seated rest break after walking the distances listed above. Patient demonstrates improved strength with sit to stand transfers as he is able to complete more reps than previous. Patient was left in bed with call light, tray, and all needs met. Mostly compliant with PWB. PT Short Term Goals Short Term Goals Time Frame: Jun 13, 2021 Roll Left & Right: 6 Sit to lyin Lying to sitting on side of be: 6 Sit to stand: 4 Chair/wtd-xq-svnrl transfer: 4 Walk 10 feet: 4 Walk 50 feet with two turns: 4 Walk 150 feet: 4 PT Insurance Processor Goals Senior Care Goals PT Senior Care Goals Time Frame: Jun 27, 2021 Roll Left & Right (QC): 6 Sit to Lying (QC): 6 Lying-Sitting on Side/Bed(QC): 6 Sit to Stand (QC): 6 Chair/Xmp-lf-Zsbje Xfer(QC): 6 Toilet Transfer (QC): 6 Car Transfer (QC): 6 Does the Patient Walk: Yes Walk 10 feet (QC): 6 Walk 50ft with 2 Turns (QC): 6 Walk 150 ft (QC): 6 Walking 10ft on Uneven Surface: 6 1 Step (curb) (QC): 6 4 Steps (QC): 9 12 Steps (QC): 9 Picking up an Object (QC): 6 Does the Pt use WC or Scooter?: No Wheel 50 feet with 2 turns (QC: 9 Type: N/A Wheel 150 feet: 9 Type: N/A PT Plan Problem List Problem List: Activity Tolerance, Functional Strength, Safety, Balance, Gait, Transfer, Bed Mobility, ROM Treatment/Plan Treatment Plan: Continue Plan of Care Treatment Plan: Bed Mobility, Education, Functional Activity Mallika, Functional Strength, Group Therapy, Gait, Safety, Therapeutic Exercise, Transfers Treatment Duration: Jun 20, 2021 Frequency: At least 5 of 7 days/Wk (IRF) Estimated Hrs Per Day: 1.5 hours per day Patient and/or Family Agrees t: Yes Safety Risks/Education Patient Education: Gait Training, Transfer Techniques, Reviewed Precautions, Safety Issues Teaching Recipient: Patient Teaching Methods: Discussion Response to Teaching: Verbalize Understanding Time/GCodes Time In: 0900 Time Out: 1000 Total Billed Treatment Time: 60 Total Billed Treatment 1 visit EX 15min FA 45 CHARLEE VELASCO PT Jun 12, 2021 09:57
--- NOTE | 2021-06-12 11:18 | Progress Note ---
SANDRA LINARES MED STUDENT 06/12/21 1118: Progress Note Jabier was not interested in talking much this morning. When asked about how he thinks he is doing, he replied with just "to be expected." His only other concern for the day was not having a bm, yet. Per PT his strength with sit to stand transfers has increased, and is able to tolerate more repititions. He does still require seated breaks after walking. Per OT he still has decreased upper extremity strength in addition to impaired ADL's. JESSIKA MACIEL DO 06/13/21 0533: Supervisory-Addendum Brief Verification & Attestation Participated in pt care: history, MDM, physical Personally performed: exam, history, MDM, supervision of care Care discussed with: Medical Student Procedures: n/a Results interpretation: Verified all documentation Verification and Attestation of Medical Student E/M Service A medical student performed and documented this service in my presence. I reviewed and verified all information documented by the medical student and made modifications to such information, when appropriate. I personally performed the physical exam and medical decision making. Jessika Maciel, Jun 13, 2021,05:33 SANDRA LINARES MED STUDENT Jun 12, 2021 11:18 JESSIKA MACIEL DO Jun 13, 2021 05:33
--- NOTE | 2021-06-12 11:43 | Occupational Ther Daily Note ---
OT Current Status-Daily Note Subjective Pt in bed, agreeable to OT tx. Mental Status/Objective Patient Orientation: Normal For Age Attachments: Other-See Comments (BRENT HOWARD) ADL-Treatment Therapy Code Descriptions/Definitions Functional [place] Measure: 0=Not Assessed/NA 4=Minimal Assistance 1=Total Assistance 5=Supervision or Setup 2=Maximal Assistance 6=Modified [place] 3=Moderate Assistance 7=Complete IndependenceSCALE: Activities may be completed with or without assistive devices. 1-Adusgcnash-kjygftd completes the activity by him/herself with no assistance from a helper. 5-Set-up or Clean-up Assistance-helper sets up or cleans up; patient completes activity. [place] assists only prior to or following the activity. 4-Supervision or Touching Assistance-helper provides verbal cues and/or nafisa rosemarie/steadying and/or contact guard assistance as patient completes activity. Assistance may be provided throughout the activity or intermittently. 3-Partial/Moderate Assistance-helper does LESS THAN HALF the effort. [place] lifts, holds or supports trunk or limbs, but provides less than half the effort. 2-Substantial/Maximal Assistance-helper does MORE THAN HALF the effort. [place] lifts or holds trunk or limbs and provides more than half the effort. 9-Cjvdyneuo-pjgjsz does ALL the effort. Patient does none of the effort to complete the activity. Or, the assistance of 2 or more helpers is required for the patient to complete the activity. If activity was not attempted, code reason: 7-Patient Refused. 9-Not Applicable-not attempted and the patient did not perform the activity before the current illness, exacerbation or injury. 10-Not Attempted due to Environmental Limitations-(lack of equipment, weather restraints, etc.). 88-Not Attempted due to Medical Conditions or Safety Concerns. Other Treatment OT/PT cotreat due to skill of 2 clinicals required which a cardiac rehab nurse could not perform in order to coordinate UE/LEs, decrease fall risk, focus on higher level balance tasks, maintain PWB RLE, and due to pt's limitations in strength, mobility/transfers, and safety. OT focused on UE placement, cues for sequencing/safety, and ADLs, PT focused on LE placement, gross overall movements, transfers/mobility. Pt transferred supine to sit EOB, then used FWW to go into therapy gym. Pt stood at FWW, completing UE reaching/throwing task x2 rounds. Round 1 toss/catch, round 2 bounce/catch. Pt took seated rest breaks bet ween tasks. Pt used FWW to return to room, transferring to recliner. Post tx, pt in recliner, call light in reach and all needs met. Education OT Patient Education: Correct positioning, Energy conservation, Modified ADL te chniques, Progress toward Goal/Update tx plan, Purpose of tx/functional activities, Rehab process Teaching Recipient: Patient Teaching Methods: Discussion Response to Teaching: Verbalize Understanding OT Short Term Goals Short Term Goals Time Frame: Jun 21, 2021 Shower/bathe self: 5 Lower body dressin Putting on/taking off footwear: 5 OT Igniter Capper Goals Igniter Capper Goals Time Frame: July 07, 2021 Eating (QC): 6 Oral Hygiene (QC): 6 Toileting Hygiene (QC): 6 Shower/Bathe Self (QC): 6 Upper Body Dressing (QC): 6 Lower Body Dressing (QC): 6 On/Off Footwear (QC): 6 1=Demonstrate adherence to instructed precautions during ADL tasks. 2=Patient will verbalize/demonstrate understanding of assistive devices/modifications for ADL. 3=Patient will improve strength/tolerance for activity to enable patient to perform ADL's. OT Education/Plan Problem List/Assessment Assessment: Decreased Activ Tolerance, Decreased UE Strength, Impaired Funct Balance, Impaired I ADL's Discharge Recommendations Plan/Recommendations: Continue POC Treatment Plan/Plan of Care Patient would benefit from OT for education, treatment and training to promote independence in ADL's, mobility, safety and/or upper extremity function for ADL's. Plan of Care: ADL Retraining, Functional Mobility, Group Exercise/Act as Ind, UE Funct Exercise/Act Treatment Duration: July 07, 2021 Frequency: At least 5 of 7 days/Wk (IRF) Estimated Hrs Per Day: 1.5 hours per day Agreement: Yes Rehab Potential: Fair Time/GCodes Start Time: 11:15 Stop Time: 11:45 Total Time Billed (hr/min): 30 Billed Treatment Time 1, FA 2 JOSY RAO OT Jun 12, 2021 11:43
--- NOTE | 2021-06-12 11:45 | Physical Therapy Daily Note ---
PT Daily Note-Current Subjective Patient was in bed prior and consented to treatment. Pain Location: No Pain Reported Mental Status Patient Orientation: Person, Place, Situation Attachments: Duong Catheter Transfers SCALE: Activities may be completed with or without assistive devices. 2-Vanbzmzxaj-bvskzlv completes the activity by him/herself with no assistance from a helper. 5-Set-up or Clean-up Assistance-helper sets up or cleans up; patient completes activity. [place] assists only prior to or following the activity. 4-Supervision or Touching Assistance-helper provides verbal cues and/or touching/steadying and/or contact guard assistance as patient completes activity. Assistance may be provided throughout the activity or intermittently. 3-Partial/Moderate Assistance-helper does LESS THAN HALF the effort. [place] lifts, holds or supports trunk or limbs, but provides less than half the effort. 2-Substantial/Maximal Assistance-helper does MORE THAN HALF the effort. [place] lifts or holds trunk or limbs and provides more than half the effort. 2-Yqyzbmqwy-syxyes does ALL the effort. Patient does none of the effort to complete the activity. Or, the assistance of 2 or more helpers is required for the patient to complete the activity. If activity was not attempted, code reason: 7-Patient Refused. 9-Not Applicable-not attempted and the patient did not perform the activity before the current illness, exacerbation or injury. 10-Not Attempted due to Environmental Limitations-(lack of equipment, weather restraints, etc.). 88-Not Attempted due to Medical Conditions or Safety Concerns. Sit to Stand (QC): 3 Weight Bearing Right Lower Extremity: Right Partial Weight Bearing Left Lower Extremity: Left Full Weight Bearing Gait Training Does the Patient Walk?: Yes Distance: 100', 100' Walk 10 feet (QC): 4 Walk 50 ft with 2 Turns(QC): 4 Gait Assistive Device: FWW Treatments OT performed ball tosses while PT worked on standing balance Assessment Current Status: Fair Progress Patient had a harder time standing from bed and required min assist. Patient complained of shortness of breath after second bout of standing activity. Patient was co-treated with OT today to work on standing balance with UE activity and required extra assistance due to balance deficits, weakness, fall risk and safety. Patient was left in chair with call light, tray, and all needs met. PT Short Term Goals Short Term Goals Time Frame: Jun 13, 2021 Roll Left & Right: 6 Sit to lyin Lying to sitting on side of be: 6 Sit to stand: 4 Chair/msb-ni-nfkkz transfer: 4 Walk 10 feet: 4 Walk 50 feet with two turns: 4 Walk 150 feet: 4 PT Apartment Maintenance Goals Apartment Maintenance Goals PT Apartment Maintenance Goals Time Frame: Jun 27, 2021 Roll Left & Right (QC): 6 Sit to Lying (QC): 6 Lying-Sitting on Side/Bed(QC): 6 Sit to Stand (QC): 6 Chair/Wbl-ob-Jqxtg Xfer(QC): 6 Toilet Transfer (QC): 6 Car Transfer (QC): 6 Does the Patient Walk: Yes Walk 10 feet (QC): 6 Walk 50ft with 2 Turns (QC): 6 Walk 150 ft (QC): 6 Walking 10ft on Uneven Surface: 6 1 Step (curb) (QC): 6 4 Steps (QC): 9 12 Steps (QC): 9 Picking up an Object (QC): 6 Does the Pt use WC or Scooter?: No Wheel 50 feet with 2 turns (QC: 9 Type: N/A Wheel 150 feet: 9 Type: N/A PT Plan Problem List Problem List: Activity Tolerance, Functional Strength, Safety, Balance, Gait, Transfer, Bed Mobility, ROM Treatment/Plan Treatment Plan: Continue Plan of Care Treatment Plan: Bed Mobility, Education, Functional Activity Mallika, Functional Strength, Group Therapy, Gait, Safety, Therapeutic Exercise, Transfers Treatment Duration: Jun 20, 2021 Frequency: At least 5 of 7 days/Wk (IRF) Estimated Hrs Per Day: 1.5 hours per day Patient and/or Family Agrees t: Yes Safety Risks/Education Patient Education: Gait Training, Transfer Techniques, Safety Issues Teaching Recipient: Patient Teaching Methods: Discussion Response to Teaching: Verbalize Understanding Time/GCodes Time In: 1115 Time Out: 1145 Total Billed Treatment Time: 30 Total Billed Treatment 1 visit NM 20min FA 10min CHARLEE VELASCO PT Jun 12, 2021 11:45
[2021-06-12 19:36] VITALS: BP 114/68
[2021-06-12] MEDS: eZETimibe 10 MG (ZETIA) TABLET PO SCH (21:12)
[2021-06-12] MEDS: ENOXAPARIN 40 MG/0.4 ML (LOVENOX) SYR SC SCH (21:12)
--- NOTE | 2021-06-13 06:22 | PM&R Progress Note ---
Subjective HPI/CC On Admission Date Seen by Provider: Jun 13, 2021 Time Seen by Provider: 09:30 Subjective/Events-last exam 06/13/2021: Patient doing really well Pain is controlled Moving around really well Discharge plan for 06/12/2021: Patient doing well Moving around well Pain is controlled Mendez catheter remains 06/11/2021: Patient doing really well Moving around well Pain is controlled Bowels are not moving so will initiate suppository if needed Mendez catheter remains 06/10/2021: Patient doing really really well Pain is really well controlled Mendez catheter remains Bowels are moving 06/09/2021: Patient doing really well Moving around really well Mendez catheter remains Spoke with urology about the plan Bowels moving 06/08/2021: Patient has no new issues Ambulating around really well Mendez catheter will remain in at discharge then will return once he can have a TURP Leg will have to be in a position and surgery that could pose risk for fracture so will need that healed before surgery Bowels are not moving ordered laxatives 06/07/2021: Pt is doing really well Proscar ordered Amiodaraone is now 200 mg Discontinue mendez and if pt can't urinate will need to put it back in Zetia will be given due to elevated liver enzymes from Statin therapy Review of Systems General: Fatigue, Malaise Musculoskeletal: leg pain, foot pain Objective Exam Vital Signs Vital Signs Date Time Temp Pulse Resp B/P (MAP) Pulse Ox O2 Delivery O2 Flow Rate FiO2 06/13/21 20:33 36.1 57 16 113/76 (88) 95 Room Air Capillary Refill : General Appearance: No Apparent Distress, WD/WN, Chronically ill HEENT: PERRL/EOMI, Normal ENT Inspection, Pharynx Normal Neck: Full Range of Motion, Normal Inspection, Non Tender, Supple, Carotid Bruit Respiratory: Chest Non Tender, Lungs Clear, Normal Breath Sounds, No Accessory Muscle Use, No Respiratory Distress Cardiovascular: Regular Rate, Rhythm, No Edema, No Gallop, No JVD, No Murmur, Normal Peripheral Pulses Gastrointestinal: Normal Bowel Sounds, No Organomegaly, No Pulsatile Mass, Non Tender, Soft Back: Normal Inspection, No CVA Tenderness, No Vertebral Tenderness Extremity: Normal Capillary Refill, Normal Inspection, Normal Range of Motion, Non Tender, No Calf Tenderness, No Pedal Edema Neurologic/Psychiatric: Alert, Oriented x3, No Motor/Sensory Deficits, Normal Mood/Affect, Motor Weakness Skin: Normal Color, Warm/Dry Lymphatic: No Adenopathy Results/Procedures Lab Patient resulted labs reviewed. FIM Transfers Therapy Code Descriptions/Definitions Functional [place] Measure: 0=Not Assessed/NA 4=Minimal Assistance 1=Total Assistance 5=Supervision or Setup 2=Maximal Assistance 6=Modified [place] 3=Moderate Assistance 7=Complete IndependenceSCALE: Activities may be completed with or without assistive devices. 1-Bverjkifnn-osqejtd completes the activity by him/herself with no assistance from a helper. 5-Set-up or Clean-up Assistance-helper sets up or cleans up; patient completes activity. [place] assists only prior to or following the activity. 4-Supervision or Touching Assistance-helper provides verbal cues and/or to uching/steadying and/or contact guard assistance as patient completes activity. Assistance may be provided throughout the activity or intermittently. 3-Partial/Moderate Assistance-helper does LESS THAN HALF the effort. [place] lifts, holds or supports trunk or limbs, but provides less than half the effort. 2-Substantial/Maximal Assistance-helper does MORE THAN HALF the effort. [place] lifts or holds trunk or limbs and provides more than half the effort. 1-Hgavxgglm-rjvvqd does ALL the effort. Patient does none of the effort to complete the activity. Or, the assistance of 2 or more helpers is required for the patient to complete the activity. If activity was not attempted, code reason: 7-Patient Refused. 9-Not Applicable-not attempted and the patient did not perform the activity before the current illness, exacerbation or injury. 10-Not Attempted due to Environmental Limitations-(lack of equipment, weather restraints, etc.). 88-Not Attempted due to Medical Conditions or Safety Concerns. Roll Left to Right (QC): 5 Sit to Lying (QC): 5 Sit to Stand (QC): 3 Chair/Xtc-us-Cxumy Xfer(QC): 4 Car Transfer (QC): 3 Gait Training Does the Patient Walk?: Yes Distance: 100', 100' Walk 10 feet (QC): 4 Walk 50 ft with 2 Turns(QC): 4 Walk 150 ft (QC): 4 Walking 10ft/uneven surface-QC: 4 Gait Persons Needed: 1 Gait Assistive Device: FWW Wheelchair Training Does the Pt Use a Wheelchair?: No Wheel 50 ft with 2 turns (QC): 9 Wheel 150 ft (QC): 9 Type of Wheelchair: N/A Stair Training 1 Step (curb) (QC): 4 4 Steps (QC): 88 12 Steps (QC): 88 Balance Picking up an Object (QC): 4 ADL-Treatment Eating (QC): 6 (IND per pt report.) Oral Hygiene (QC): 6 (IND standing at sink) Shower/Bathe Self (QC): 5 (set up seated on SC. ) Upper Body Dressing (QC): 5 (set up ) Lower Body Dressing (QC): 5 (set up with shorts.) On/Off Footwear (QC): 3 (Min A with CAM boot, pt able to complete L shoe with set up.) Toileting Hygiene (QC): 3 (Min A ) Assessment/Plan Assessment and Plan Assess & Plan/Chief Complaint Assessment: R distal fibular fracture 5 weeks ago now partial weight bearing per Dr Albright 06/06/21 NSTEMI, s/p cardioversion on 05/19 Ventricular tachycardia recurrent with hypotension prompting transfer to ICU on 05/30/2021 on lidocaine drip and transferred to [place] s/p ablation Cardiogenic shock, resolved T2DM Arrhythmogenic Right Ventricular Dysplasia NEVAEH, resolved Cerebral palsy history BPH DVT risk Urinary retention requiring mendez cath reinsertion Chronic Constipation s/p UTI Enterococcus placed on Vanco empirically 05/26/2021 then changed to Amoxil after sensitivities completed last admit Anemia of chronic disease Elevated liver enzymes Anemia Plan: Rehab protocol Pain control Partial weight bearing Urology consult Dr Albright consult Dr Farrar consult Check TSH to labs 06/07/2021: Monitor liver function Appreciate cardiology Appreciate urology Appreciate orthopedics 06/08/2021: Keep Mendez catheter in Supportive care 06/09/2021: Supportive care Maintain Mendez 06/10/2021: Supportive care Maintain Mendez Pain control 06/11/2021 Supportive care Maintain Mendez 06/12/2021: Supportive care Maintain Mendez 06/13/2021: Supportive care Maintain Mendez (1) Ventricular tachycardia Status: Acute Assessment & Plan: He is now status post ablation for the ventricular tachycardia. He has a LACQUER MAKER-D device in place. He continue on amiodarone amiodarone 200 mg daily. He will need long-term monitoring for screening for de velopment of side effects.. (2) Arrhythmogenic right ventricular dysplasia Status: Acute Assessment & Plan: We will continue with the amiodarone. He has a defibrillator in place. (3) Right heart failure Assessment & Plan: He has significant right ventricular enlargement and dysfunction. At the present time he does not have any overt signs of right heart failure but he could develop issues with this in the future. Once he is discharged home, I will consider an outpatient referral to the advanced heart failure team at [facility]. Qualifiers: Heart failure chronicity: chronic Qualified Codes: I50.812 - Chronic right heart failure (4) Primary hypertension Assessment & Plan: He is on metoprolol tartrate and blood pressures are intermittently elevated. I will increase the dose of metoprolol. (5) Mixed hyperlipidemia Assessment & Plan: I have started him on ezetimibe. He had some sort of reaction to statin medications in the past. VALERIY POTTS DO Jun 13, 2021 06:22
[2021-06-13 08:00] VITALS: BP 149/76
[2021-06-13] MEDS: ALLOPURINOL 100 MG (ZYLOPRIM) TAB PO SCH (08:26)
[2021-06-13] MEDS: FINASTERIDE (PROSCAR) 5 MG TAB PO SCH (08:26)
[2021-06-13] MEDS: MULTIVIT W/MINERALS TAB (THERAGRAN M) PO SCH (08:26)
[2021-06-13] MEDS: ASCORBIC ACID (VIT C) 500 MG TABLET PO SCH (08:26)
[2021-06-13] MEDS: TAMSULOSIN 0.4 MG (FLOMAX) CAP PO SCH (08:26)
[2021-06-13] MEDS: meTOprolol TARTRATE 25 MG (LOPRESSOR) TABLET PO SCH ×2 (08:27→21:07)
[2021-06-13] MEDS: AMIODARONE 200 MG (CORDARONE) TAB PO SCH (08:27)
[2021-06-13] MEDS: ASPIRIN 81 MG CHEW (CHILDREN'S ASA) PO SCH (08:27)
[2021-06-13] MEDS: FAMOTIDINE 20 MG (PEPCID) TABLET PO SCH (08:27)
[2021-06-13] MEDS: CYANOCOBALAMIN 1,000 MCG (VITAMIN B-12) TABLET PO SCH (08:27)
[2021-06-13] MEDS: ACETAMINOPHEN 325 MG TABLET PO PRN ×2 (08:28→14:29)
[2021-06-13] MEDS: DOCUSATE SODIUM 100 MG (COLACE) CAP PO SCH ×2 (08:29→21:07)
[2021-06-13] MEDS: polyethylene glycoL POWDER 17 GM (MIRALAX) PACK PO SCH ×2 (08:30→19:59)
[2021-06-13] MEDS: SENNA W/DOCUSATE (SENOKOT S) TABLET PO SCH ×2 (08:30→21:07)
--- NOTE | 2021-06-13 08:30 | Progress Note - Urology ---
Progress Note-Urology Progress Notes/Assess & Plan Progress/Assessment & Plan WE WILL WAIT FOR PROPER HEALING OF FOOT BEFORE PROCEEDING WITH TURP. DR POTTS TO GIVE THE GO. PLAN DC FLOMAX, PROSCAR AND URECHOLINE AND KEEP MCDUFFIE IN Final Diagnosis RETENTION ANABELLA PORTER MD Jun 13, 2021 08:30
--- NOTE | 2021-06-13 09:46 | Occupational Ther Daily Note ---
OT Current Status-Daily Note Subjective Pt denies pain, reports poor sleep. Co-treat with PT for part of session ([id number]) secondary to poor activity tolerance, high fall risk, and need of 2 skilled clinicians to progress indep and safety with adls and mobility. Appearance Pt left sitting in chair with Physical therapy present. Mental Status/Objective Patient Orientation: Person, Place Attachments: Duong Catheter R cam boot ADL-Treatment Therapy Code Descriptions/Definitions Functional [place] Measure: 0=Not Assessed/NA 4=Minimal Assistance 1=Total Assistance 5=Supervision or Setup 2=Maximal Assistance 6=Modified [place] 3=Moderate Assistance 7=Complete IndependenceSCALE: Activities may be completed with or without assistive devices. 1-Mmeqdmozvk-pzicriq completes the activity by him/herself with no assistance from a helper. 5-Set-up or Clean-up Assistance-helper sets up or cleans up; patient completes a ctivity. [place] assists only prior to or following the activity. 4-Supervision or Touching Assistance-helper provides verbal cues and/or touching/steadying and/or contact guard assistance as patient completes activity. Assistance may be provided throughout the activity or intermittently. 3-Partial/Moderate Assistance-helper does LESS THAN HALF the effort. [place] lifts, holds or supports trunk or limbs, but provides less than half the effort. 2-Substantial/Maximal Assistance-helper does MORE THAN HALF the effort. [place] lifts or holds trunk or limbs and provides more than half the effort. 8-Fgpwzlofd-nvuend does ALL the effort. Patient does none of the effort to complete the activity. Or, the assistance of 2 or more helpers is required for the patient to complete the activity. If activity was not attempted, code reason: 7-Patient Refused. 9-Not Applicable-not attempted and the patient did not perform the activity before the current illness, exacerbation or injury. 10-Not Attempted due to Environmental Limitations-(lack of equipment, weather restraints, etc.). 88-Not Attempted due to Medical Conditions or Safety Concerns. Oral Hygiene (QC): 4 Upper Body Dressing (QC): 5 On/Off Footwear: 4 Toileting Hygiene (QC): 4 Toilet Transfer (QC): 4 Supine>sit: SBA. Shirt donned sitting EOB with set up. While sitting on EOB, pt donned/doffed cam boot x2 with verbal cues and extra time. Improved speed and less cues notable on second attempt. Pt ambulated to/from bathroom with close SBA-CGA with use of walker. Poor sequencing/adherence to partial weight bearing during gait; requires mod cues for reminder on correct technique. Poor insight as pt often verbalizing that it did not matter because he is not experiencing any pain. He stood at sink for grooming tasks, supervision for safety, No LOB. Post instruction/demonstration from therapist, pt completed tub transfer x2 with SBA-CGA. Focus on safety, sequencing and adherence to partial weight bearing restrictions. Pt educated on performing sit method as he will not be able to stand over tub while also maintaining correct weight bearing. Other Treatment Pt stood to complete mod complexity pvc pipe design. Focus of activity on improving balance, endurance, reducing UE support, UE strength/Coordination, and safety needed for functional tasks. Pt only able to tolerate standing for ~4 minutes before requesting to sit. Encouragement to maintain standing for another minute. Pt reports fatigue in Bilateral shoulders during activity despite limited shoulder ROM needed during task (activity placed at low table height). Min cues for problem solving and attention to details. No LOB or unsteadiness observed during task. Education OT Patient Education: Correct positioning, Energy conservation, Instructions don/doff splint/brace, Modified ADL techniques, Progress toward Goal/Update tx plan, Purpose of tx/functional activities, Rehab process, Safety issues, Transfer techniques Teaching Recipient: Patient Teaching Methods: Demonstration, Discussion Response to Teaching: Verbalize Understanding, Return Demonstration, Reinforcement Needed OT Short Term Goals Short Term Goals Time Frame: Jun 21, 2021 Shower/bathe self: 5 Lower body dressin Putting on/taking off footwear: 5 OT Support Services Manager Goals Fdc Goals Time Frame: July 07, 2021 Eating (QC): 6 Oral Hygiene (QC): 6 Toileting Hygiene (QC): 6 Shower/Bathe Self (QC): 6 Upper Body Dressing (QC): 6 Lower Body Dressing (QC): 6 On/Off Footwear (QC): 6 1=Demonstrate adherence to instructed precautions during ADL tasks. 2=Patient will verbalize/demonstrate understanding of assistive devices/modifications for ADL. 3=Patient will improve strength/tolerance for activity to enable patient to perform ADL's. OT Education/Plan Problem List/Assessment Assessment: Decreased Activ Tolerance, Decreased Safety Aware, Decreased UE Strength, Impaired Cognition, Impaired Coordination, Impaired Funct Balance, Impaired Self-Care Skills Discharge Recommendations Plan/Recommendations: Continue POC Treatment Plan/Plan of Care Treatment,Training & Education: Yes Patient would benefit from OT for education, treatment and training to promote independence in ADL's, mobility, safety and/or upper extremity function for ADL's. Plan of Care: ADL Retraining, Functional Mobility, Group Exercise/Act as Ind, UE Funct Exercise/Act Treatment Duration: July 07, 2021 Frequency: At least 5 of 7 days/Wk (IRF) Estimated Hrs Per Day: 1.5 hours per day Agreement: Yes Rehab Potential: Fair Time/GCodes Start Time: 08:45 Stop Time: 09:45 Total Time Billed (hr/min): 60 Billed Treatment Time 1 visit ADL (20 min) FA x3 (40 min) Yuridia Spencer OT Jun 13, 2021 09:46
--- NOTE | 2021-06-13 10:12 | Physical Therapy Daily Note ---
PT Daily Note-Current Subjective Upon arrival, pt was seated on EOB, with OT present. OT had begun tx session with pt. PT co treated with OT for dynamic standing balance and GT. Pain Comment: Pt reports no pain at this time. Mental Status Patient Orientation: Person, Time, Situation, Normal For Age Attachments: Duong Catheter Transfers SCALE: Activities may be completed with or without assistive devices. 5-Wyurgllher-yvnhiea completes the activity by him/herself with no assistance from a helper. 5-Set-up or Clean-up Assistance-helper sets up or cleans up; patient completes activity. [place] assists only prior to or following the activity. 4-Supervision or Touching Assistance-helper provides verbal cues and/or t ouching/steadying and/or contact guard assistance as patient completes activity. Assistance may be provided throughout the activity or intermittently. 3-Partial/Moderate Assistance-helper does LESS THAN HALF the effort. [place] lifts, holds or supports trunk or limbs, but provides less than half the effort. 2-Substantial/Maximal Assistance-helper does MORE THAN HALF the effort. [place] lifts or holds trunk or limbs and provides more than half the effort. 7-Uxlweikjq-zxboyz does ALL the effort. Patient does none of the effort to complete the activity. Or, the assistance of 2 or more helpers is required for the patient to complete the activity. If activity was not attempted, code reason: 7-Patient Refused. 9-Not Applicable-not attempted and the patient did not perform the activity before the current illness, exacerbation or injury. 10-Not Attempted due to Environmental Limitations-(lack of equipment, weather restraints, etc.). 88-Not Attempted due to Medical Conditions or Safety Concerns. Sit to Lying (QC): 6 Lying to Sitting/Side of Bed(Q: 6 Sit to Stand (QC): 3 Weight Bearing Right Lower Extremity: Right Partial Weight Bearing Left Lower Extremity: Left Full Weight Bearing Gait Training Gait Assistive Device: FWW Exercises Supine Ex: Heel Slides, Short Arc Quads, Straight leg raise, Hip abd/add Supine Reps: 15 Seated Therapy Exercises: Ankle pumps, Sit to stand, Long arc quads, Hip flexion, Hip abd/add Seated Reps: 15 Treatments PT treated pt before co treatment session with OT. Pt completed and performed all supine EXs as listed above at 830-848am . PT co treated with OT at beginning of tx session. OT focused on ADL. PT focused on balance. During tx session doctor arrived to check pt. Starting at the beginning of PT session, pt needed an extended RB, prior to OT session. During PT session, pt was performing GT, ambulated to the door and stated he was fatigued and was SOA.Therapist dc ambulation for the rest of the tx session, due to fatigue and SOA, pt performs STS and seated/supine EX in place of ambulation to work on and improve pts activity tolerance. Prior to the end of PT session pt was placed back in bed, with RN present, call light in reach and all needs met. Assessment Current Status: Good Progress Pt would benefit from more PT to improve on activity tolerance, strength and GT. Pt required frequent RBs, during session. PT Short Term Goals Short Term Goals Time Frame: Jun 13, 2021 Roll Left & Right: 6 Sit to lyin Lying to sitting on side of be: 6 Sit to stand: 4 Chair/pdw-uw-tiola transfer: 4 Walk 10 feet: 4 Walk 50 feet with two turns: 4 Walk 150 feet: 4 PT Machined [employer] Metal Sprayer Goals Custodial Goals PT Custodial Goals Time Frame: Jun 27, 2021 Roll Left & Right (QC): 6 Sit to Lying (QC): 6 Lying-Sitting on Side/Bed(QC): 6 Sit to Stand (QC): 6 Chair/Yiv-yp-Ieerh Xfer(QC): 6 Toilet Transfer (QC): 6 Car Transfer (QC): 6 Does the Patient Walk: Yes Walk 10 feet (QC): 6 Walk 50ft with 2 Turns (QC): 6 Walk 150 ft (QC): 6 Walking 10ft on Uneven Surface: 6 1 Step (curb) (QC): 6 4 Steps (QC): 9 12 Steps (QC): 9 Picking up an Object (QC): 6 Does the Pt use WC or Scooter?: No Wheel 50 feet with 2 turns (QC: 9 Type: N/A Wheel 150 feet: 9 Type: N/A PT Plan Problem List Problem List: Activity Tolerance, Functional Strength, Gait Treatment/Plan Treatment Plan: Continue Plan of Care Treatment Plan: Bed Mobility, Education, Functional Activity Mallika, Functional Strength, Group Therapy, Gait, Safety, Therapeutic Exercise, Transfers Treatment Duration: Jun 20, 2021 Frequency: At least 5 of 7 days/Wk (IRF) Estimated Hrs Per Day: 1.5 hours per day Patient and/or Family Agrees t: Yes Safety Risks/Education Patient Education: Gait Training, Transfer Techniques, Correct Positioning, Safety Issues Teaching Recipient: Patient Teaching Methods: Demonstration, Discussion Response to Teaching: Verbalize Understanding, Return Demonstration Time/GCodes Time In: 900 Time Out: 1012 Total Billed Treatment Time: 90 Total Billed Treatment 1, EX 830-848am, (18) 1, FA 3, EX 2, 900-1012am (72) JACK MAKI PTA Jun 13, 2021 10:12
--- NOTE | 2021-06-13 14:27 | Occupational Ther Daily Note ---
OT Current Status-Daily Note Subjective Pt began tx supine in bed and agreed to OT tx with family member in room. Mental Status/Objective Patient Orientation: Person, Place, Time, Situation ADL-Treatment Therapy Code Descriptions/Definitions Functional [place] Measure: 0=Not Assessed/NA 4=Minimal Assistance 1=Total Assistance 5=Supervision or Setup 2=Maximal Assistance 6=Modified [place] 3=Moderate Assistance 7=Complete IndependenceSCALE: Activities may be completed with or without assistive devices. 7-Kslvmtkayn-nzlggro completes the activity by him/herself with no assistance from a helper. 5-Set-up or Clean-up Assistance-helper sets up or cleans up; patient completes activity. [place] assists only prior to or following the activity. 4-Supervision or Touching Assistance-helper provides verbal cues and/or touching/steadying and/or contact guard assistance as patient completes activity. Assistance may be provided throughout the activity or intermittently. 3-Partial/Moderate Assistance-helper does LESS THAN HALF the effort. [place] lifts, holds or supports trunk or limbs, but provides less than half the effort. 2-Substantial/Maximal Assistance-helper does MORE THAN HALF the effort. [place] lifts or holds trunk or limbs and provides more than half the effort. 4-Qutcfhbns-hahryu does ALL the effort. Patient does none of the effort to complete the activity. Or, the assistance of 2 or more helpers is required for the patient to complete the activity. If activity was not attempted, code reason: 7-Patient Refused. 9-Not Applicable-not attempted and the patient did not perform the activity before the current illness, exacerbation or injury. 10-Not Attempted due to Environmental Limitations-(lack of equipment, weather restraints, etc.). 88-Not Attempted due to Medical Conditions or Safety Concerns. Other Treatment Pt began tx supine in bed and transferred to EOB with SBA. Pt donned L footwear with set up assistance. Pt ambulated to therapy gym with FWW at [facility] and completed armbike for 10min to increase BUE strength and activity tolerance. Pt then ambulated back to room with FWW at A requiring 1 rest break. Pt then transferred to EOB to supine in bed at [facility]. Pt supine in bed with call light and phone in reach and all needs met. OT Short Term Goals Short Term Goals Time Frame: Jun 21, 2021 Shower/bathe self: 5 Lower body dressin Putting on/taking off footwear: 5 OT Senior Living Goals Beater Dumper Goals Time Frame: July 07, 2021 Eating (QC): 6 Oral Hygiene (QC): 6 Toileting Hygiene (QC): 6 Shower/Bathe Self (QC): 6 Upper Body Dressing (QC): 6 Lower Body Dressing (QC): 6 On/Off Footwear (QC): 6 1=Demonstrate adherence to instructed precautions during ADL tasks. 2=Patient will verbalize/demonstrate understanding of assistive devices/modifications for ADL. 3=Patient will improve strength/tolerance for activity to enable patient to perform ADL's. OT Education/Plan Problem List/Assessment Assessment: Decreased Activ Tolerance, Decreased UE Strength, Impaired Funct Balance, Impaired Self-Care Skills Discharge Recommendations Plan/Recommendations: Continue POC Treatment Plan/Plan of Care Patient would benefit from OT for education, treatment and training to promote independence in ADL's, mobility, safety and/or upper extremity function for ADL's. Plan of Care: ADL Retraining, Functional Mobility, Group Exercise/Act as Ind, UE Funct Exercise/Act Treatment Duration: July 07, 2021 Frequency: At least 5 of 7 days/Wk (IRF) Estimated Hrs Per Day: 1.5 hours per day Agreement: Yes Rehab Potential: Fair Time/GCodes Start Time: 13:45 Stop Time: 14:15 Total Time Billed (hr/min): 30 Billed Treatment Time 1 visit- 1, EX 2 (30min) Louise José Jun 13, 2021 14:27
[2021-06-13 20:33] VITALS: BP 113/76
[2021-06-13] MEDS: eZETimibe 10 MG (ZETIA) TABLET PO SCH (21:07)
[2021-06-13] MEDS: ENOXAPARIN 40 MG/0.4 ML (LOVENOX) SYR SC SCH (21:07)
[2021-06-14] MEDS: ACETAMINOPHEN 325 MG TABLET PO PRN ×2 (02:58→18:51)
--- NOTE | 2021-06-14 06:05 | PM&R Progress Note ---
Subjective HPI/CC On Admission Date Seen by Provider: Jun 14, 2021 Time Seen by Provider: 09:30 Subjective/Events-last exam 06/14/2021: Patient doing really well Discharge planned for Moving around really well Follow-up for TURP after leg heals 06/13/2021: Patient doing really well Pain is controlled Moving around really well Discharge plan for 06/12/2021: Patient doing well Moving around well Pain is controlled Mendez catheter remains 06/11/2021: Patient doing really well Moving around well Pain is controlled Bowels are not moving so will initiate suppository if needed Mendez catheter remains 06/10/2021: Patient doing really really well Pain is really well controlled Mendez catheter remains Bowels are moving 06/09/2021: Patient doing really well Moving around really well Mendez catheter remains Spoke with urology about the plan Bowels moving 06/08/2021: Patient has no new issues Ambulating around really well Mendez catheter will remain in at discharge then will return once he can have a TURP Leg will have to be in a position and surgery that could pose risk for fracture so will need that healed before surgery Bowels are not moving ordered laxatives 06/07/2021: Pt is doing really well Proscar ordered Amiodaraone is now 200 mg Discontinue mendez and if pt can't urinate will need to put it back in Zetia will be given due to elevated liver enzymes from Statin therapy Review of Systems General: Fatigue, Malaise Musculoskeletal: leg pain Objective Exam Vital Signs Vital Signs Date Time Temp Pulse Resp B/P (MAP) Pulse Ox O2 Delivery O2 Flow Rate FiO2 06/14/21 20:10 Room Air 06/14/21 20:00 36.0 59 16 148/81 (103) 95 Capillary Refill : General Appearance: No Apparent Distress, WD/WN, Chronically ill HEENT: PERRL/EOMI, Normal ENT Inspection, Pharynx Normal Neck: Full Range of Motion, Normal Inspection, Non Tender, Supple, Carotid Bruit Respiratory: Chest Non Tender, Lungs Clear, Normal Breath Sounds, No Accessory Muscle Use, No Respiratory Distress Cardiovascular: Regular Rate, Rhythm, No Edema, No Gallop, No JVD, No Murmur, Normal Peripheral Pulses Gastrointestinal: Normal Bowel Sounds, No Organomegaly, No Pulsatile Mass, Non Tender, Soft Back: Normal Inspection, No CVA Tenderness, No Vertebral Tenderness Extremity: Normal Capillary Refill, Normal Inspection, Normal Range of Motion, Non Tender, No Calf Tenderness, No Pedal Edema Neurologic/Psychiatric: Alert, Oriented x3, No Motor/Sensory Deficits, Normal Mood/Affect, Motor Weakness Skin: Normal Color, Warm/Dry Lymphatic: No Adenopathy Results/Procedures Lab Patient resulted labs reviewed. FIM Transfers Therapy Code Descriptions/Definitions Functional [place] Measure: 0=Not Assessed/NA 4=Minimal Assistance 1=Total Assistance 5=Supervision or Setup 2=Maximal Assistance 6=Modified [place] 3=Moderate Assistance 7=Complete IndependenceSCALE: Activities may be completed with or without assistive devices. 3-Tmhpsavmnx-ljxklzk completes the activity by him/herself with no assistance from a helper. 5-Set-up or Clean-up Assistance-helper sets up or cleans up; patient completes a ctivity. [place] assists only prior to or following the activity. 4-Supervision or Touching Assistance-helper provides verbal cues and/or touching/steadying and/or contact guard assistance as patient completes activity. Assistance may be provided throughout the activity or intermittently. 3-Partial/Moderate Assistance-helper does LESS THAN HALF the effort. [place] lifts, holds or supports trunk or limbs, but provides less than half the effort. 2-Substantial/Maximal Assistance-helper does MORE THAN HALF the effort. [place] lifts or holds trunk or limbs and provides more than half the effort. 2-Bdagzlubk-mlymic does ALL the effort. Patient does none of the effort to complete the activity. Or, the assistance of 2 or more helpers is required for the patient to complete the activity. If activity was not attempted, code reason: 7-Patient Refused. 9-Not Applicable-not attempted and the patient did not perform the activity before the current illness, exacerbation or injury. 10-Not Attempted due to Environmental Limitations-(lack of equipment, weather restraints, etc.). 88-Not Attempted due to Medical Conditions or Safety Concerns. Roll Left to Right (QC): 5 Sit to Lying (QC): 6 Sit to Stand (QC): 3 Chair/Pqy-mv-Ghqri Xfer(QC): 4 Car Transfer (QC): 3 Gait Training Does the Patient Walk?: Yes Distance: 100', 100' Walk 10 feet (QC): 4 Walk 50 ft with 2 Turns(QC): 4 Walk 150 ft (QC): 4 Walking 10ft/uneven surface-QC: 4 Gait Persons Needed: 1 Gait Assistive Device: FWW Wheelchair Training Does the Pt Use a Wheelchair?: No Wheel 50 ft with 2 turns (QC): 9 Wheel 150 ft (QC): 9 Type of Wheelchair: N/A Stair Training 1 Step (curb) (QC): 4 4 Steps (QC): 88 12 Steps (QC): 88 Balance Picking up an Object (QC): 4 ADL-Treatment Eating (QC): 6 (IND per pt report.) Oral Hygiene (QC): 4 Shower/Bathe Self (QC): 5 (set up seated on SC. ) Upper Body Dressing (QC): 5 Lower Body Dressing (QC): 5 (set up with shorts.) On/Off Footwear (QC): 4 Toileting Hygiene (QC): 4 Toilet Transfer (QC): 4 Assessment/Plan Assessment and Plan Assess & Plan/Chief Complaint Assessment: R distal fibular fracture 5 weeks ago now partial weight bearing per Dr Albright 06/06/21 NSTEMI, s/p cardioversion on 05/19 Ventricular tachycardia recurrent with hypotension prompting transfer to ICU on 05/30/2021 on lidocaine drip and transferred to [place] s/p ablation Cardiogenic shock, resolved T2DM Arrhythmogenic Right Ventricular Dysplasia NEVAEH, resolved Cerebral palsy history BPH DVT risk Urinary retention requiring mendez cath reinsertion Chronic Constipation s/p UTI Enterococcus placed on Vanco empirically 05/26/2021 then changed to Amoxil after sensitivities completed last admit Anemia of chronic disease Elevated liver enzymes Anemia Plan: Rehab protocol Pain control Partial weight bearing Urology consult Dr Albright consult Dr Farrar consult Check TSH to labs 06/07/2021: Monitor liver function Appreciate cardiology Appreciate urology Appreciate orthopedics 06/08/2021: Keep Mendez catheter in Supportive care 06/09/2021: Supportive care Maintain Mendez 06/10/2021: Supportive care Maintain Mendez Pain control 06/11/2021 Supportive care Maintain Mendez 06/12/2021: Supportive care Maintain Mendez 06/13/2021: Supportive care Maintain Mendez 06/14/2021: Discharge plan tomorrow (1) Ventricular tachycardia Status: Acute Assessment & Plan: He is now status post ablation for the ventricular tachycardia. He has a CARDIAC CATH TECH-D device in place. He continue on amiodarone amiodarone 200 mg daily. He will need long-term monitoring for screening for development of side effects.. (2) Arrhythmogenic right ventricular dysplasia Status: Acute Assessment & Plan: We will continue with the amiodarone. He has a defibrillator in place. (3) Right heart failure Assessment & Plan: He has significant right ventricular enlargement and dysf unction. At the present time he does not have any overt signs of right heart failure but he could develop issues with this in the future. Once he is discharged home, I will consider an outpatient referral to the advanced heart failure team at [facility]. Qualifiers: Heart failure chronicity: chronic Qualified Codes: I50.812 - Chronic right heart failure (4) Primary hypertension Assessment & Plan: He is on metoprolol tartrate and blood pressures are intermittently elevated. I will increase the dose of metoprolol. (5) Mixed hyperlipidemia Assessment & Plan: I have started him on ezetimibe. He had some sort of reaction to statin medications in the past. VALERIY POTTS DO Jun 14, 2021 06:05
[2021-06-14 07:32] VITALS: BP 147/82
[2021-06-14] MEDS: AMIODARONE 200 MG (CORDARONE) TAB PO SCH (08:04)
[2021-06-14] MEDS: ALLOPURINOL 100 MG (ZYLOPRIM) TAB PO SCH (08:04)
[2021-06-14] MEDS: CYANOCOBALAMIN 1,000 MCG (VITAMIN B-12) TABLET PO SCH (08:04)
[2021-06-14] MEDS: meTOprolol TARTRATE 25 MG (LOPRESSOR) TABLET PO SCH ×2 (08:04→20:28)
[2021-06-14] MEDS: ASPIRIN 81 MG CHEW (CHILDREN'S ASA) PO SCH (08:04)
[2021-06-14] MEDS: MULTIVIT W/MINERALS TAB (THERAGRAN M) PO SCH (08:04)
[2021-06-14] MEDS: FAMOTIDINE 20 MG (PEPCID) TABLET PO SCH (08:04)
[2021-06-14] MEDS: ASCORBIC ACID (VIT C) 500 MG TABLET PO SCH (08:04)
[2021-06-14] MEDS: SENNA W/DOCUSATE (SENOKOT S) TABLET PO SCH ×2 (08:04→20:31)
[2021-06-14] MEDS: FINASTERIDE (PROSCAR) 5 MG TAB PO SCH (08:04)
[2021-06-14] MEDS: DOCUSATE SODIUM 100 MG (COLACE) CAP PO SCH ×2 (08:04→20:31)
[2021-06-14] MEDS: polyethylene glycoL POWDER 17 GM (MIRALAX) PACK PO SCH ×2 (08:07→19:41)
--- NOTE | 2021-06-14 10:22 | Physical Therapy Daily Note ---
PT Daily Note-Current Subjective Pt. agrees to Rx and states he feels he has made real progress "You all are miracle workers" Pain Location: No Pain Reported Mental Status Patient Orientation: Normal For Age Attachments: Duong Catheter Transfers SCALE: Activities may be completed with or without assistive devices. 9-Qdosueuucr-wuphpgn completes the activity by him/herself with no assistance from a helper. 5-Set-up or Clean-up Assistance-helper sets up or cleans up; patient completes activity. [place] assists only prior to or following the activity. 4-Supervision or Touching Assistance-helper provides verbal cues and/or touching/steadying and/or contact guard assistance as patient completes activity. Assistance may be provided throughout the activity or intermittently. 3-Partial/Moderate Assistance-helper does LESS THAN HALF the effort. [place] lifts, holds or supports trunk or limbs, but provides less than half the effort. 2-Substantial/Maximal Assistance-helper does MORE THAN HALF the effort. [place] lifts or holds trunk or limbs and provides more than half the effort. 4-Xcjuwuvwg-qssbac does ALL the effort. Patient does none of the effort to complete the activity. Or, the assistance of 2 or more helpers is required for the patient to complete the activity. If activity was not attempted, code reason: 7-Patient Refused. 9-Not Applicable-not attempted and the patient did not perform the activity before the current illness, exacerbation or injury. 10-Not Attempted due to Environmental Limitations-(lack of equipment, weather restraints, etc.). 88-Not Attempted due to Medical Conditions or Safety Concerns. Roll Left & Right (QC): 6 Sit to Lying (QC): 6 Lying to Sitting/Side of Bed(Q: 6 Sit to Stand (QC): 6 Chair/Vco-ns-Ptmat Xfer(QC): 6 Car Transfer (QC): 6 Weight Bearing Right Lower Extremity: Right Partial Weight Bearing Left Lower Extremity: Left Full Weight Bearing Gait Training Does the Patient Walk?: Yes Walk 10 feet (QC): 6 Walk 50 ft with 2 Turns(QC): 6 Walk 150 ft (QC): 6 Walking 10ft/uneven surface-QC: 6 Gait Persons Needed: 1 Gait Assistive Device: FWW no LOB, good pattern and maintained PWBing Wheelchair Training Does the Pt Use a Wheelchair?: No Stair Training Stair Training: Handrails/: 2 handrails #of Steps: 4 4 Steps (QC): 4 12 Steps (QC): 88 Stairs: Pattern: Step to CGA and instruction for sequence and wt bearing and hand placement Balance Picking up an Object (QC): 6 Exercises Supine Ex: Rolling, Straight leg raise Supine Reps: 10 Seated Therapy Exercises: Sit to stand, Long arc quads, Hip flexion Seated Reps: 10 Standing: Hamstring curls, 3 way Ex=Flex, Abd, Ext, Marching Standing Reps: 12 (on R only) NuStep Minutes: 5 NuStep Workload: 1 Neuromuscular Tinneti completed Gait portion 11/13, balance portion 02/16 Assessment Current Status: Good Progress marked progress in all phases of Rx PT Short Term Goals Short Term Goals Time Frame: Jun 13, 2021 Roll Left & Right: 6 Sit to lyin Lying to sitting on side of be: 6 Sit to stand: 4 Chair/vxn-dx-qhikz transfer: 4 Walk 10 feet: 4 Walk 50 feet with two turns: 4 Walk 150 feet: 4 PT Fpc Goals Product Safety Technician Goals PT Fpc Goals Time Frame: Jun 27, 2021 Roll Left & Right (QC): 6 Sit to Lying (QC): 6 Lying-Sitting on Side/Bed(QC): 6 Sit to Stand (QC): 6 Chair/Vem-vo-Amzck Xfer(QC): 6 Toilet Transfer (QC): 6 Car Transfer (QC): 6 Does the Patient Walk: Yes Walk 10 feet (QC): 6 Walk 50ft with 2 Turns (QC): 6 Walk 150 ft (QC): 6 Walking 10ft on Uneven Surface: 6 1 Step (curb) (QC): 6 4 Steps (QC): 9 12 Steps (QC): 9 Picking up an Object (QC): 6 Does the Pt use WC or Scooter?: No Wheel 50 feet with 2 turns (QC: 9 Type: N/A Wheel 150 feet: 9 Type: N/A PT Plan Treatment/Plan Treatment Plan: Continue Plan of Care Treatment Plan: Bed Mobility, Education, Functional Activity Mallika, Functional Strength, Group Therapy, Gait, Safety, Therapeutic Exercise, Transfers Treatment Duration: Jun 20, 2021 Frequency: At least 5 of 7 days/Wk (IRF) Estimated Hrs Per Day: 1.5 hours per day Patient and/or Family Agrees t: Yes Safety Risks/Education Patient Education: Gait Training, Transfer Techniques, Steps, Correct Positioning, Disease Process, Safety Issues Teaching Recipient: Patient Teaching Methods: Demonstration, Discussion Response to Teaching: Verbalize Understanding, Return Demonstration, Reinforcement Needed Time/GCodes Time In: 900 Time Out: 1000 Total Billed Treatment Time: 60 Total Billed Treatment 1,NM20m,GT25m,EX15m JUSTIN MAYNARD METAL SANDER Jun 14, 2021 10:22
--- NOTE | 2021-06-14 10:59 | Occupational Ther Daily Note ---
OT Current Status-Daily Note Subjective Pt alert, laying in bed when OT entered. Pt agreed to therapy. No c/o pain reported. Mental Status/Objective Patient Orientation: Person, Place, Time, Situation Attachments: Other-See Comments R CAM boot ADL-Treatment Pt agreed to complete shower. Pt transferred from supine to EOB with supervision. After set up, pt donned L footwear. Pt sit-stand from EOB to FWW with supervision. Pt ambulated to closet using FWW to retrieve clothing. Pt reached for clothing and placed them on walker with supervision. Pt ambulated to bathroom using FWW and transferred to shower bench with supervision. While still in standing pt doffed LB dressing. Pt doffed UB dressing while seated at shower bench. Pt able to doff CAM boot, required increased time. Pt performed shower. Pt required shower bench, hand held shower, grab bars to complete shower safely. Post shower, pt donned LB dressing. Pt donned UB dressing. Pt able to don CAM boot. Pt performed basic grooming task while sitting at sink independently. Therapy Code Descriptions/Definitions Functional [place] Measure: 0=Not Assessed/NA 4=Minimal Assistance 1=Total Assistance 5=Supervision or Setup 2=Maximal Assistance 6=Modified [place] 3=Moderate Assistance 7=Complete IndependenceSCALE: Activities may be completed with or without assistive devices. 6-Fqcabmfqzh-tnaxito completes the activity by him/herself with no assistance from a helper. 5-Set-up or Clean-up Assistance-helper sets up or cleans up; patient completes activity. [place] assists only prior to or following the activity. 4-Supervision or Touching Assistance-helper provides verbal cues and/or touching/steadying and/or contact guard assistance as patient completes activity. Assistance may be provided throughout the activity or intermittently. 3-Partial/Moderate Assistance-helper does LESS THAN HALF the effort. [place] lifts, holds or supports trunk or limbs, but provides less than half the effort. 2-Substantial/Maximal Assistance-helper does MORE THAN HALF the effort. [place] lifts or holds trunk or limbs and provides more than half the effort. 8-Rgajrxjch-yzfxay does ALL the effort. Patient does none of the effort to complete the activity. Or, the assistance of 2 or more helpers is required for the patient to complete the activity. If activity was not attempted, code reason: 7-Patient Refused. 9-Not Applicable-not attempted and the patient did not perform the activity before the current illness, exacerbation or injury. 10-Not Attempted due to Environmental Limitations-(lack of equipment, weather restraints, etc.). 88-Not Attempted due to Medical Conditions or Safety Concerns. Bathing Location: L Arm, R Arm, L Upper Leg, R Upper Leg, L Lower Leg (including foot), R Lower Leg (including foot), Chest, Abdomen, Buttocks, Perineal Area Shower/Bathe Self (QC): 6 Upper Body Dressing (QC): 6 Lower Body Dressing (QC): 6 On/Off Footwear: 5 Education OT Patient Education: Energy conservation, Progress toward Goal/Update tx plan, Purpose of tx/functional activities, Transfer techniques Teaching Recipient: Patient Teaching Methods: Demonstration, Discussion Response to Teaching: Verbalize Understanding, Return Demonstration OT Short Term Goals Short Term Goals Time Frame: Jun 21, 2021 Shower/bathe self: 5 Lower body dressin Putting on/taking off footwear: 5 OT Information Receptionist Goals Care Home Goals Time Frame: July 07, 2021 Eating (QC): 6 (Met per clinical judgement) Oral Hygiene (QC): 6 (Met per clincal judgement) Toileting Hygiene (QC): 6 (Met per clincal judgment) Shower/Bathe Self (QC): 6 (Met) Upper Body Dressing (QC): 6 (Met) Lower Body Dressing (QC): 6 (Met) On/Off Footwear (QC): 6 (Not met, Pt able to don footwear after set up.) 1=Demonstrate adherence to instructed precautions during ADL tasks. 2=Patient will verbalize/demonstrate understanding of assistive devices/modifications for ADL. 3=Patient will improve strength/tolerance for activity to enable patient to perform ADL's. OT Education/Plan Problem List/Assessment Assessment: Decreased Activ Tolerance, Decreased UE Strength, Impaired I ADL's, Impaired Self-Care Skills Discharge Recommendations Plan/Recommendations: Continue POC Treatment Plan/Plan of Care Patient would benefit from OT for education, treatment and training to promote independence in ADL's, mobility, safety and/or upper extremity function for ADL's. Plan of Care: ADL Retraining, Functional Mobility, Group Exercise/Act as Ind, UE Funct Exercise/Act Treatment Duration: July 07, 2021 Frequency: At least 5 of 7 days/Wk (IRF) Estimated Hrs Per Day: 1.5 hours per day Agreement: Yes Rehab Potential: Fair Time/GCodes Start Time: 10:00 Stop Time: 11:00 Total Time Billed (hr/min): 60 Billed Treatment Time 1 visit- ADL 4 (60 mins) HINA ANTONIO Jun 14, 2021 10:59
--- NOTE | 2021-06-14 11:29 | Occupational Ther Daily Note ---
OT Current Status-Daily Note ADL-Treatment Therapy Code Descriptions/Definitions Functional [place] Measure: 0=Not Assessed/NA 4=Minimal Assistance 1=Total Assistance 5=Supervision or Setup 2=Maximal Assistance 6=Modified [place] 3=Moderate Assistance 7=Complete IndependenceSCALE: Activities may be completed with or without assistive devices. 5-Hewemziala-jjngxqt completes the activity by him/herself with no assistance from a helper. 5-Set-up or Clean-up Assistance-helper sets up or cleans up; patient completes activity. [place] assists only prior to or following the activity. 4-Supervision or Touching Assistance-helper provides verbal cues and/or touching/steadying and/or contact guard assistance as patient completes activity. Assistance may be provided throughout the activity or intermittently. 3-Partial/Moderate Assistance-helper does LESS THAN HALF the effort. [place] lifts, holds or supports trunk or limbs, but provides less than half the effort. 2-Substantial/Maximal Assistance-helper does MORE THAN HALF the effort. [place] lifts or holds trunk or limbs and provides more than half the effort. 2-Qnltflvgj-xhfizs does ALL the effort. Patient does none of the effort to complete the activity. Or, the assistance of 2 or more helpers is required for the patient to complete the activity. If activity was not attempted, code reason: 7-Patient Refused. 9-Not Applicable-not attempted and the patient did not perform the activity before the current illness, exacerbation or injury. 10-Not Attempted due to Environmental Limitations-(lack of equipment, weather restraints, etc.). 88-Not Attempted due to Medical Conditions or Safety Concerns. OT Short Term Goals Short Term Goals Time Frame: Jun 21, 2021 Shower/bathe self: 5 Lower body dressin Putting on/taking off footwear: 5 OT Forest Pathology Associate Professor Goals Alf Goals Time Frame: July 07, 2021 Eating (QC): 6 Oral Hygiene (QC): 6 Toileting Hygiene (QC): 6 Shower/Bathe Self (QC): 6 Upper Body Dressing (QC): 6 Lower Body Dressing (QC): 6 On/Off Footwear (QC): 6 1=Demonstrate adherence to instructed precautions during ADL tasks. 2=Patient will verbalize/demonstrate understanding of assistive devices/modifications for ADL. 3=Patient will improve strength/tolerance for activity to enable patient to perform ADL's. OT Education/Plan Treatment Plan/Plan of Care Patient would benefit from OT for education, treatment and training to promote independence in ADL's, mobility, safety and/or upper extremity function for ADL's. Plan of Care: ADL Retraining, Functional Mobility, Group Exercise/Act as Ind, UE Funct Exercise/Act Treatment Duration: July 07, 2021 Frequency: At least 5 of 7 days/Wk (IRF) Estimated Hrs Per Day: 1.5 hours per day Agreement: Yes Rehab Potential: HINA [place]in Jun 14, 2021 11:29
[2021-06-14 11:35] VITALS: BP 120/72
--- NOTE | 2021-06-14 13:18 | Occupational Ther Daily Note ---
OT Current Status-Daily Note Subjective Pt alert, laying in bed when OT entered. Pt reported no more blurry vision. Agreed to therapy. No c/o pain reported. Mental Status/Objective Patient Orientation: Person, Place, Time, Situation ADL-Treatment Therapy Code Descriptions/Definitions Functional [place] Measure: 0=Not Assessed/NA 4=Minimal Assistance 1=Total Assistance 5=Supervision or Setup 2=Maximal Assistance 6=Modified [place] 3=Moderate Assistance 7=Complete IndependenceSCALE: Activities may be completed with or without assistive devices. 1-Wsuppymmed-vdwfzkd completes the activity by him/herself with no assistance from a helper. 5-Set-up or Clean-up Assistance-helper sets up or cleans up; patient completes activity. [place] assists only prior to or following the activity. 4-Supervision or Touching Assistance-helper provides verbal cues and/or touching/steadying and/or contact guard assistance as patient completes activity. Assistance may be provided throughout the activity or intermittently. 3-Partial/Moderate Assistance-helper does LESS THAN HALF the effort. [place] lifts, holds or supports trunk or limbs, but provides less than half the effort. 2-Substantial/Maximal Assistance-helper does MORE THAN HALF the effort. [place] lifts or holds trunk or limbs and provides more than half the effort. 3-Rheeesplj-nwyohe does ALL the effort. Patient does none of the effort to complete the activity. Or, the assistance of 2 or more helpers is required for the patient to complete the activity. If activity was not attempted, code reason: 7-Patient Refused. 9-Not Applicable-not attempted and the patient did not perform the activity before the current illness, exacerbation or injury. 10-Not Attempted due to Environmental Limitations-(lack of equipment, weather restraints, etc.). 88-Not Attempted due to Medical Conditions or Safety Concerns. Other Treatment Skilled instruction required of BUE green theraband exercises. Pt completed x2 sets of 10 reps of BUE green theraband exercises in all planes to increase BUE strength for improved independence with ADLs. Pt demonstrated fair technique after physical and verbal demonstration. Pt required resting break in between set due to decreased activity tolerance. After session, pt sitting in recliner. Call light in reach and all needs met.. Education OT Patient Education: Energy conservation, Exercise program, Home exercise program Teaching Recipient: Patient Teaching Methods: Demonstration, Handout, Discussion Response to Teaching: Verbalize Understanding, Return Demonstration OT Short Term Goals Short Term Goals Time Frame: Jun 21, 2021 Shower/bathe self: 5 Lower body dressin Putting on/taking off footwear: 5 OT Shelter Goals Shelter Goals Time Frame: July 07, 2021 Eating (QC): 6 (Met per clinical judgement) Oral Hygiene (QC): 6 (Met per clincal judgement) Toileting Hygiene (QC): 6 (Met per clincal judgment) Shower/Bathe Self (QC): 6 (Met) Upper Body Dressing (QC): 6 (Met) Lower Body Dressing (QC): 6 (Met) On/Off Footwear (QC): 6 (Not met, Pt able to don footwear after set up.) 1=Demonstrate adherence to instructed precautions during ADL tasks. 2=Patient will verbalize/demonstrate understanding of assistive devices/modifications for ADL. 3=Patient will improve strength/tolerance for activity to enable patient to perform ADL's. OT Education/Plan Problem List/Assessment Assessment: Decreased Activ Tolerance, Decreased UE Strength, Impaired I ADL's, Impaired Self-Care Skills Discharge Recommendations Plan/Recommendations: Continue POC Treatment Plan/Plan of Care Patient would benefit from OT for education, treatment and training to promote independence in ADL's, mobility, safety and/or upper extremity function for ADL's. Plan of Care: ADL Retraining, Functional Mobility, Group Exercise/Act as Ind, UE Funct Exercise/Act Treatment Duration: July 07, 2021 Frequency: At least 5 of 7 days/Wk (IRF) Estimated Hrs Per Day: 1.5 hours per day Agreement: Yes Rehab Potential: Fair Time/GCodes Start Time: 12:55 Stop Time: 13:25 Total Time Billed (hr/min): 30 Billed Treatment Time 1 visit- EX 2 (30 mins) HINA ANTONIO Jun 14, 2021 13:18
--- NOTE | 2021-06-14 13:54 | Physical Therapy Daily Note ---
PT Daily Note-Current Subjective Pt. agrees to Rx initially and did exercises in be but upon sitting and standing c/o he had a visual field issue that was exactly like when all this began so pt. got back in bed. Rx was finished in PM with pt. stating his symptoms had resolved Pain Location: No Pain Reported Mental Status Patient Orientation: Normal For Age Attachments: Duong Catheter Transfers SCALE: Activities may be completed with or without assistive devices. 5-Kazvoinbpv-hxhsszq completes the activity by him/herself with no assistance from a helper. 5-Set-up or Clean-up Assistance-helper sets up or cleans up; patient completes activity. [place] assists only prior to or following the activity. 4-Supervision or Touching Assistance-helper provides verbal cues and/or touching/steadying and/or contact guard assistance as patient completes activity. Assistance may be provided throughout the activity or intermittently. 3-Partial/Moderate Assistance-helper does LESS THAN HALF the effort. [place] lifts, holds or supports trunk or limbs, but provides less than half the effort. 2-Substantial/Maximal Assistance-helper does MORE THAN HALF the effort. [place] lifts or holds trunk or limbs and provides more than half the effort. 1-Wsrzeswdt-vfvczk does ALL the effort. Patient does none of the effort to complete the activity. Or, the assistance of 2 or more helpers is required for the patient to complete the activity. If activity was not attempted, code reason: 7-Patient Refused. 9-Not Applicable-not attempted and the patient did not perform the activity before the current illness, exacerbation or injury. 10-Not Attempted due to Environmental Limitations-(lack of equipment, weather restraints, etc.). 88-Not Attempted due to Medical Conditions or Safety Concerns. Toilet Transfer (QC): 6 pt. used rails in bathroom and TRFd with observation only Weight Bearing Right Lower Extremity: Right Partial Weight Bearing Left Lower Extremity: Left Full Weight Bearing Gait Training Does the Patient Walk?: Yes Gait Assistive Device: FWW 30ft x 2 FWW CGA to bthrm and back no LOB or incident Stair Training 1 Step (curb) (QC): 4 Exercises Supine Ex: Ankle pumps, Quad Set, Glut sets, Heel Slides, Straight leg raise, Hip abd/add Supine Reps: 12 Treatments pt. with c/o visual issues , layed back down, vitals were taken with all WNLs, BP117/70, HR70, O2 sats>90%, FSBS not taken as this was apparently discontinued by DR. Winchester. states he sis not have these visual symptoms of "flashing light and squigglies" after having a snack Assessment Current Status: Good Progress pt. had visual symptoms during 1st attempt at Rx so this was finished later when symptoms had resolved PT Short Term Goals Short Term Goals Time Frame: Jun 13, 2021 Roll Left & Right: 6 Sit to lyin Lying to sitting on side of be: 6 Sit to stand: 4 Chair/lqc-rr-txjjo transfer: 4 Walk 10 feet: 4 Walk 50 feet with two turns: 4 Walk 150 feet: 4 PT Visual Aid Expert Goals Visual Aid Expert Goals PT Visual Aid Expert Goals Time Frame: Jun 27, 2021 Roll Left & Right (QC): 6 Sit to Lying (QC): 6 Lying-Sitting on Side/Bed(QC): 6 Sit to Stand (QC): 6 Chair/Yap-bl-Ygsdl Xfer(QC): 6 Toilet Transfer (QC): 6 Car Transfer (QC): 6 Does the Patient Walk: Yes Walk 10 feet (QC): 6 Walk 50ft with 2 Turns (QC): 6 Walk 150 ft (QC): 6 Walking 10ft on Uneven Surface: 6 1 Step (curb) (QC): 6 4 Steps (QC): 9 12 Steps (QC): 9 Picking up an Object (QC): 6 Does the Pt use WC or Scooter?: No Wheel 50 feet with 2 turns (QC: 9 Type: N/A Wheel 150 feet: 9 Type: N/A PT Plan Treatment/Plan Treatment Plan: Continue Plan of Care Treatment Plan: Bed Mobility, Education, Functional Activity Mallika, Functional Strength, Group Therapy, Gait, Safety, Therapeutic Exercise, Transfers Treatment Duration: Jun 20, 2021 Frequency: At least 5 of 7 days/Wk (IRF) Estimated Hrs Per Day: 1.5 hours per day Patient and/or Family Agrees t: Yes Safety Risks/Education Patient Education: Gait Training, Transfer Techniques, Correct Positioning, Disease Process, Safety Issues Teaching Recipient: Patient Teaching Methods: Demonstration, Discussion Response to Teaching: Verbalize Understanding, Return Demonstration, Reinforcement Needed Time/GCodes Time In: 1100 (1335) Time Out: 1120 (1345) Total Billed Treatment Time: 30 Total Billed Treatment 1x2,EX20m,FA10m JUSTIN MAYNARD SANITATION DIRECTOR Jun 14, 2021 13:54
[2021-06-14 20:00] VITALS: BP 148/81
[2021-06-14] MEDS: eZETimibe 10 MG (ZETIA) TABLET PO SCH (20:28)
[2021-06-14] MEDS: ENOXAPARIN 40 MG/0.4 ML (LOVENOX) SYR SC SCH (20:28)
[2021-06-15] MEDS ORDERED: TRM50T PO (06:36)
[2021-06-15] MEDS ORDERED: METO-333 PO (06:36)
[2021-06-15] MEDS ORDERED: AMIO200T65 PO (06:36)
[2021-06-15] MEDS ORDERED: FINA5TAB6 PO (06:36)
[2021-06-15] MEDS ORDERED: EZET10TA49 PO (06:36)
--- NOTE | 2021-06-15 06:37 | Discharge Summary ---
Diagnosis/Chief Complaint Date of Admission Jun 05, 2021 at 16:41 Date of Discharge Discharge Date: Jun 15, 2021 Discharge Diagnosis Assessment: R distal fibular fracture 5 weeks ago now partial weight bearing per Dr Albright 06/06/21 NSTEMI, s/p cardioversion on 05/19 Ventricular tachycardia recurrent with hypotension prompting transfer to ICU on 05/30/2021 on lidocaine drip and transferred to [place] s/p ablation Cardiogenic shock, resolved T2DM Arrhythmogenic Right Ventricular Dysplasia NEVAEH, resolved Cerebral palsy history BPH DVT risk Urinary retention requiring mendez cath reinsertion Chronic Constipation s/p UTI Enterococcus placed on Vanco empirically 05/26/2021 then changed to Amoxil after sensitivities completed last admit Anemia of chronic disease Elevated liver enzymes Anemia Plan: Rehab protocol Pain control Partial weight bearing Urology consult Dr Albright consult Dr Farrar consult Check TSH to labs 06/07/2021: Monitor liver function Appreciate cardiology Appreciate urology Appreciate orthopedics 06/08/2021: Keep Mendez catheter in Supportive care 06/09/2021: Supportive care Maintain Mendez 06/10/2021: Supportive care Maintain Mendez Pain control 06/11/2021 Supportive care Maintain Mendez 06/12/2021: Supportive care Maintain Mendez 06/13/2021: Supportive care Maintain Mendez 06/14/2021: Discharge plan tomorrow (1) Ventricular tachycardia Status: Acute Assessment & Plan: He is now status post ablation for the ventricular tachycardia. He has a CHEMICAL TREATMENT OPERATOR-D device in place. He continue on amiodarone amiodarone 200 mg daily. He will need long-term monitoring for screening for development of side effects.. (2) Arrhythmogenic right ventricular dysplasia Status: Acute Assessment & Plan: We will continue with the amiodarone. He has a defibrillator in place. (3) Right heart failure Assessment & Plan: He has significant right ventricular enlargement and dysfunction. At the present time he does not have any overt signs of right heart failure but he could develop issues with this in the future. Once he is discharged home, I will consider an outpatient referral to the advanced heart failure team at [facility]. Qualifiers: Heart failure chronicity: chronic Qualified Codes: I50.812 - Chronic right heart failure (4) Primary hypertension Assessment & Plan: He is on metoprolol tartrate and blood pressures are intermittently elevated. I will increase the dose of metoprolol. (5) Mixed hyperlipidemia Assessment & Plan: I have started him on ezetimibe. He had some sort of reaction to statin medications in the past. VALERIY POTTS DO Jun 14, 2021 06:05 <Created by VALERIY POTTS DO> <Electronically signed by VALERIY POTTS DO> 06/15/21 0616 Discharge Summary Discharge Physical Examination Allergies: Uncoded Allergies: UNKNOWN CHOLESTEROL MED. (Allergy, Unknown, 02/12/18) Vitals & I&Os Vital Signs Date Time Temp Pulse Resp B/P (MAP) Pulse Ox O2 Delivery O2 Flow Rate FiO2 06/15/21 14:30 36.0 71 18 141/86 93 Room Air General Appearance: Alert, Oriented X3, Cooperative Respiratory: Clear to Auscultation Cardiovascular: Regular Rate Psych/Mental Status: Mental Status NL Hospital Course Was the Problem List Reviewed?: Yes Hospital course: Patient had an uneventful hospital course but very productive once Dr. Albright allowed him for partial weightbearing on his right foot. Cardiology followed him and monitored any recurrence of ventricular tachycardia. Medications were changed. Checked meds and labs during his stay. Catheter remained due to continued urinary retention after failed voiding trial. He will need a TURP but that cannot occur until his legs can be up in stirrups and his fibula fracture is not resolved enough for that. Overall he did very well I sent medication to the pharmacy and he was discharged in improved condition. Labs (last 24 hrs) Laboratory Tests 06/06/21 05:11: White Blood Count 6.7, Red Blood Count 3.25L, Hemoglobin 10.9L, Hematocrit 33L, Mean Corpuscular Volume 101H, Mean Corpuscular Hemoglobin 34, Mean Corpuscular Hemoglobin Concent 33, Red Cell Distribution Width 13.6, Platelet Count 253, Mean Platelet Volume 9.8, Immature Granulocyte % (Auto) 0, Neutrophils (%) (Auto) 69, Lymphocytes (%) (Auto) 19, Monocytes (%) (Auto) 8, Eosinophils (%) (Auto) 3, Basophils (%) (Auto) 1, Neutrophils # (Auto) 4.6, Lymphocytes # (Auto) 1.3, Monocytes # (Auto) 0.6, Eosinophils # (Auto) 0.2, Basophils # (Auto) 0.0, Immature Granulocyte # (Auto) 0.0, Sodium Level 138, Potassium Level 4.3, Chloride Level 104, Carbon Dioxide Level 21, Anion Gap 13, Blood Urea Nitrogen 15, Creatinine 0.97, Estimat Glomerular Filtration Rate 81, BUN/Creatinine Ratio 15, Glucose Level 112H, Calcium Level 8.9, Corrected Calcium 9.5, Total Bilirubin 0.7, Aspartate Amino Transf (AST/SGOT) 52H, Alanine Aminotransferase (ALT/SGPT) 128H, Alkaline Phosphatase 128, Total Protein 6.8, Albumin 3.2, Thyroid Stimulating Hormone (TSH) 1.92 06/12/21 06:25: White Blood Count 7.3, Red Blood Count 3.45L, Hemoglobin 11.5L, Hematocrit 35L, Mean Corpuscular Volume 100H, Mean Corpuscular Hemoglobin 33, Mean Corpuscular Hemoglobin Concent 33, Red Cell Distribution Width 13.6, Platelet Count 280, Mean Platelet Volume 9.3, Immature Granulocyte % (Auto) 0, Neutrophils (%) (Auto) 67, Lymphocytes (%) (Auto) 20, Monocytes (%) (Auto) 9, Eosinophils (%) (Auto) 3, Basophils (%) (Auto) 1, Neutrophils # (Auto) 4.9, Lymphocytes # (Auto) 1.5, Monocytes # (Auto) 0.7, Eosinophils # (Auto) 0.3, Basophils # (Auto) 0.0, Immature Granulocyte # (Auto) 0.0, Sodium Level 140, Potassium Level 4.3, Chloride Level 106, Carbon Dioxide Level 20L, Anion Gap 14, Blood Urea Nitrogen 18, Creatinine 1.10, Estimat Glomerular Filtration Rate 70, BUN/Creatinine Ratio 16, Glucose Level 107H, Calcium Level 9.0, Corrected Calcium 9.5, Total Bilirubin 0.7, Aspartate Amino Transf (AST/SGOT) 26, Alanine Aminotransferase (ALT/SGPT) 47, Alkaline Phosphatase 124, Total Protein 7.1, Albumin 3.4 06/14/21 11:26: Glucometer 99 Pending Labs Laboratory Tests 06/06/21 05:11: White Blood Count 6.7, Red Blood Count 3.25, Hemoglobin 10.9, Hematocrit 33, Mean Corpuscular Volume 101, Mean Corpuscular Hemoglobin 34, Mean Corpuscular Hemoglobin Concent 33, Red Cell Distribution Width 13.6, Platelet Count 253, Mean Platelet Volume 9.8, Immature Granulocyte % (Auto) 0, Neutrophils (%) (Auto) 69, Lymphocytes (%) (Auto) 19, Monocytes (%) (Auto) 8, Eosinophils (%) (Auto) 3, Basophils (%) (Auto) 1, Neutrophils # (Auto) 4.6, Lymphocytes # (Auto) 1.3, Monocytes # (Auto) 0.6, Eosinophils # (Auto) 0.2, Basophils # (Auto) 0.0, Immature Granulocyte # (Auto) 0.0, Sodium Level 138, Potassium Level 4.3, Chloride Level 104, Carbon Dioxide Level 21, Anion Gap 13, Blood Urea Nitrogen 15, Creatinine 0.97, Estimat Glomerular Filtration Rate 81, BUN/Creatinine Ratio 15, Glucose Level 112, Calcium Level 8.9, Corrected Calcium 9.5, Total Bilirubin 0.7, Aspartate Amino Transf (AST/SGOT) 52, Alanine Aminotransferase (ALT/SGPT) 128, Alkaline Phosphatase 128, Total Protein 6.8, Albumin 3.2, Thyroid Stimulating Hormone (TSH) 1.92 06/12/21 06:25: White Blood Count 7.3, Red Blood Count 3.45, Hemoglobin 11.5, Hematocrit 35, Mean Corpuscular Volume 100, Mean Corpuscular Hemoglobin 33, Mean Corpuscular Hemoglobin Concent 33, Red Cell Distribution Width 13.6, Platelet Count 280, Mean Platelet Volume 9.3, Immature Granulocyte % (Auto) 0, Neutrophils (%) (Auto) 67, Lymphocytes (%) (Auto) 20, Monocytes (%) (Auto) 9, Eosinophils (%) (Auto) 3, Basophils (%) (Auto) 1, Neutrophils # (Auto) 4.9, Lymphocytes # (Auto) 1.5, Monocytes # (Auto) 0.7, Eosinophils # (Auto) 0.3, Basophils # (Auto) 0.0, Immature Granulocyte # (Auto) 0.0, Sodium Level 140, Potassium Level 4.3, Chloride Level 106, Carbon Dioxide Level 20, Anion Gap 14, Blood Urea Nitrogen 18, Creatinine 1.10, Estimat Glomerular Filtration Rate 70, BUN/Creatinine Ratio 16, Glucose Level 107, Calcium Level 9.0, Corrected Calcium 9.5, Total Bilirubin 0.7, Aspartate Amino Transf (AST/SGOT) 26, Alanine Aminotransferase (ALT/SGPT) 47, Alkaline Phosphatase 124, Total Protein 7.1, Albumin 3.4 06/14/21 11:26: Glucometer 99 Discharge Home Medications: Active Scripts Active Finasteride 5 Mg Tablet 5 Mg PO DAILY Tramadol HCl 50 Mg Tablet 50 Mg PO TID PRN Metoprolol Tartrate 25 Mg Tablet 50 Mg PO BID Ezetimibe 10 Mg Tablet 10 Mg PO HS Amiodarone HCl 200 Mg Tablet 200 Mg PO DAILY Reported Atorvastatin Calcium 80 Mg Tablet 40 Mg PO HS TAKES OF A 80MG TAB Aspirin 81 Mg Tab.chew 81 Mg PO DAILY Multivitamins with Minerals (Multivitamin with Minerals) 1 Each Tablet 1 Each PO DAILY Eye Health Adult 50+ Softgel (Antiox #11/Om3/Dha/Epa/Lut/Salvador) 1 Each Capsule 1 Each PO DAILY Cyclobenzaprine HCl 10 Mg Tablet 10 Mg PO HS PRN Vitamin B-12 (Cyanocobalamin (Vitamin B-12)) 1,000 Mcg Tablet 1,000 Mcg PO DAILY Allopurinol 100 Mg Tablet 100 Mg PO DAILY Proair Hfa (Albuterol Sulfate) 1 Puff Puff 2 Puff IH QID PRN Tylenol Extra Strength (Acetaminophen) 500 Mg Tablet 1,000 Mg PO Q8H PRN Vitamin C (Ascorbate Calcium) 500 Mg Tablet 500 Mg PO DAILY Instructions to patient/family Please see electronic discharge instructions given to patient. Diagnosis/Problems Diagnosis/Problems (1) Debility (2) Right fibular fracture Status: Acute (3) Arrhythmogenic right ventricular dysplasia Status: Acute (4) Right heart failure Qualifiers: Qualified Codes: I50.812 - Chronic right heart failure (5) Primary hypertension (6) Ventricular tachycardia Status: Acute (7) Mixed hyperlipidemia (8) Cerebral palsy (9) Cardiogenic shock Status: Acute (10) Acute kidney injury Status: Acute VALERIY POTTS DO Jun 15, 2021 06:37
[2021-06-15 08:00] VITALS: BP 141/86
[2021-06-15] MEDS: CYANOCOBALAMIN 1,000 MCG (VITAMIN B-12) TABLET PO SCH (08:38)
[2021-06-15] MEDS: ASPIRIN 81 MG CHEW (CHILDREN'S ASA) PO SCH (08:38)
[2021-06-15] MEDS: meTOprolol TARTRATE 25 MG (LOPRESSOR) TABLET PO SCH (08:39)
[2021-06-15] MEDS: ALLOPURINOL 100 MG (ZYLOPRIM) TAB PO SCH (08:39)
[2021-06-15] MEDS: MULTIVIT W/MINERALS TAB (THERAGRAN M) PO SCH (08:39)
[2021-06-15] MEDS: FINASTERIDE (PROSCAR) 5 MG TAB PO SCH (08:39)
[2021-06-15] MEDS: ASCORBIC ACID (VIT C) 500 MG TABLET PO SCH (08:39)
[2021-06-15] MEDS: FAMOTIDINE 20 MG (PEPCID) TABLET PO SCH (08:39)
[2021-06-15] MEDS: AMIODARONE 200 MG (CORDARONE) TAB PO SCH (08:39)
[2021-06-15] MEDS: polyethylene glycoL POWDER 17 GM (MIRALAX) PACK PO SCH (08:40)
--- NOTE | 2021-06-15 09:20 | Therapy Team Discharge Summary ---
Therapy Discharge Summary Discharge Recommendations Date of Discharge Physical Therapy Patient came to rehab with ventricular tachycardia, R distal fibular fx. Upon evaluation patient performed rolling with setup, supine <-> sit SBA, sit <-> stand and transfers min assist, car transfer min assist, ambulated 50' with a rolling walker with CGA (including 50' with at least 2 turns of 90 degrees and 10' over an uneven surface), could go up and down 1 step using a rolling walker with CGA, and picked up an object from the floor with CGA using a work car operator. Patient has been performing bed mobility and transfer training, balance and endurance training, functional strengthening, stair training, gait training, and education. Patient has made good progress and has met all of her detention goals. Now, patient perform rolling and supine <-> sit with independence, sit <-> stand and transfers with independence, car transfer independent, ambulates 150' with a rolling walker with independence (including 50' with at least 2 turns of 90 degrees and 10' over an uneven surface), can go up and down 4 steps using 2 handrails with CGA, and can crop picker an object from the floor with independence. Patient is being discharged from this facility today and will be discharged from PT at this time. Roll Left to Right (QC): 6 Sit to Lying (QC): 6 Lying to Sitting/Side of Bed(Q: 6 Sit to Stand (QC): 6 Chair/Fdf-hb-Xzzvk Xfer(QC): 6 Toilet Transfer (QC): 4 Car Transfer (QC): 6 Does the Patient Walk: Yes Mode of Locomotion: Walk Anticipated Mode of Locomotion: Walk Walk 10 feet (QC): 6 Walk 50 ft with 2 Turns(QC): 6 Walk 150 ft (QC): 6 Walking 10ft on uneven surface: 6 Distance: 50'x5 Gait Assistive Device: FWW Does the Pt Use a Wheelchair: No Wheel 50 ft with 2 turns (QC): 9 Wheel 150 ft (QC): 9 Type of Wheelchair: N/A #of Steps: 4 1 Step (curb) (QC): 4 4 Steps (QC): 4 12 Steps (QC): 88 Balance Sitting Static: Normal Balance Sitting Dynamic: Normal Balance-Standing Static: Poor Picking up an Object (QC): 6 Occupational Therapy Decreased Activ Tolerance, Decreased UE Strength, Impaired I ADL's, Impaired Self-Care Skills Eating (QC): 6 (IND per pt report.) Oral Hygiene (QC): 4 Shower/Bathe Self (QC): 6 Upper Body Dressing (QC): 6 Lower Body Dressing (QC): 6 On/Off Footwear (QC): 5 Toileting Hygiene (QC): 4 PT Mechanical Oxidizer Goals Mechanical Oxidizer Goals PT Mechanical Oxidizer Goals Time Frame: Jun 27, 2021 Roll Left to Right (QC): 6 Sit to Lying (QC): 6 Lying-Sitting on Side/Bed(QC): 6 Sit to Stand (QC): 6 Chair/Vhd-ra-Paxgc Xfer(QC): 6 Car Transfer (QC): 6 Does the Patient Walk: Yes Walk 10 feet (QC): 6 Walk 10ft-Uneven Surface(QC): 6 Walk 50ft with 2 Turns (QC): 6 Walk 150 ft (QC): 6 Does the Pt use WC or Scooter?: No Wheel 50 feet with 2 turns (QC: 9 1 Step (curb) (QC): 6 4 Steps (QC): 9 12 Steps (QC): 9 Picking up an Object (QC): 6 OT Longterm Goals Longterm Goals Time Frame: July 07, 2021 Eating (FIM): 6 Eating (QC): 6 (Met per clinical judgement) Oral Hygiene (QC): 6 (Met per clincal judgement) Shower/Bathe Self (QC): 6 (Met) Upper Body Dressing (QC): 6 (Met) Lower Body Dressing (QC): 6 (Met) On/Off Footwear (QC): 6 (Not met, Pt able to don footwear after set up.) Toileting(FIM): 6 Toileting Hygiene (QC): 6 (Met per clincal judgment) Toilet/Commode Transfer (QC): 6 1=Demonstrate adherence to instructed precautions during ADL tasks. 2=Patient will verbalize/demonstrate understanding of assistive devices/modifications for ADL. 3=Patient will improve strength/tolerance for activity to enable patient to perform ADL's. CHARLEE VELASCO PT Jun 15, 2021 09:20
[2021-06-15] MEDS ORDERED: LIDOCAINE UROJET 2% GEL 10 ML PKG ONE (10:36)
--- NOTE | 2021-06-15 11:51 | Therapy Team Discharge Summary ---
Therapy Discharge Summary Discharge Recommendations Date of Discharge Therapy D/C Recommendations: Home w/ Family Support, Occupational Therapy Home Care, Homemaker Support Physical Therapy Roll Left to Right (QC): 6 Sit to Lying (QC): 6 Lying to Sitting/Side of Bed(Q: 6 Sit to Stand (QC): 6 Chair/Poq-ti-Jqneb Xfer(QC): 6 Toilet Transfer (QC): 4 Car Transfer (QC): 6 Does the Patient Walk: Yes Mode of Locomotion: Walk Anticipated Mode of Locomotion: Walk Walk 10 feet (QC): 6 Walk 50 ft with 2 Turns(QC): 6 Walk 150 ft (QC): 6 Walking 10ft on uneven surface: 6 Distance: 50'x5 Gait Assistive Device: FWW Does the Pt Use a Wheelchair: No Wheel 50 ft with 2 turns (QC): 9 Wheel 150 ft (QC): 9 Type of Wheelchair: N/A #of Steps: 4 1 Step (curb) (QC): 4 4 Steps (QC): 4 12 Steps (QC): 88 Balance Sitting Static: Normal Balance Sitting Dynamic: Normal Balance-Standing Static: Poor Picking up an Object (QC): 6 Occupational Therapy Patient came to rehab with ventricular tachycardia, R distal fibular fx. At time of eval, pt was max a for footwear, min a for toileting, lower body dressing, and bathing, and set up for upper body dressing and oral care. During rehab stay, OT focused on safety, balance, endurance, UE strength, cognition, sequencing, energy conservation and compensatory strategies in order to improve safety and independence with adls and functional mobility. Pt made good progress and met all of his intermission coordinator goals except footwear which he is set up for. Patient is being discharged from this facility today and will be discharged from OT at this time. Decreased Activ Tolerance, Decreased UE Strength, Impaired I ADL's, Impaired Self-Care Skills Eating (QC): 6 Oral Hygiene (QC): 6 Shower/Bathe Self (QC): 6 Upper Body Dressing (QC): 6 Lower Body Dressing (QC): 6 On/Off Footwear (QC): 5 Toileting Hygiene (QC): 6 PT Sports Fitness And Wellness Director Goals Sports Fitness And Wellness Director Goals PT Shelter Goals Time Frame: Jun 27, 2021 Roll Left to Right (QC): 6 Sit to Lying (QC): 6 Lying-Sitting on Side/Bed(QC): 6 Sit to Stand (QC): 6 Chair/Grt-xq-Khtws Xfer(QC): 6 Car Transfer (QC): 6 Does the Patient Walk: Yes Walk 10 feet (QC): 6 Walk 10ft-Uneven Surface(QC): 6 Walk 50ft with 2 Turns (QC): 6 Walk 150 ft (QC): 6 Does the Pt use WC or Scooter?: No Wheel 50 feet with 2 turns (QC: 9 1 Step (curb) (QC): 6 4 Steps (QC): 9 12 Steps (QC): 9 Picking up an Object (QC): 6 OT Shelter Goals Sports Fitness And Wellness Director Goals Time Frame: July 07, 2021 Eating (FIM): 6 (met) Eating (QC): 6 (Met) Oral Hygiene (QC): 6 (Met) Shower/Bathe Self (QC): 6 (Met) Upper Body Dressing (QC): 6 (Met) Lower Body Dressing (QC): 6 (Met) On/Off Footwear (QC): 6 (Not met, Pt able to don footwear after set up.) Toileting(FIM): 6 Toileting Hygiene (QC): 6 (Met) Toilet/Commode Transfer (QC): 6 (met) 1=Demonstrate adherence to instructed precautions during ADL tasks. 2=Patient will verbalize/demonstrate understanding of assistive devices/modifications for ADL. 3=Patient will improve strength/tolerance for activity to enable patient to perform ADL's. Yuridia Spencer OT Jun 15, 2021 11:50
[2021-06-15] MEDS: ACETAMINOPHEN 325 MG TABLET PO PRN (12:03)
[2021-06-15] MEDS: DOCUSATE SODIUM 100 MG (COLACE) CAP PO SCH (12:09)
[2021-06-15] MEDS: SENNA W/DOCUSATE (SENOKOT S) TABLET PO SCH (12:09)
[2021-06-15 14:30] VITALS: BP 141/86
== END 2021-06-15 20:34 | disposition home or self-care (01) | DRG 559 ==
PROVIDERS: ADMIT Internal Medicine; ATTEND Internal Medicine
DX: S82.61XD Displaced fracture of lateral malleolus of right fibula, subsequent encounter for closed fracture with routine healing (principal); I21.4 Non-ST elevation (NSTEMI) myocardial infarction; I42.9 Cardiomyopathy, unspecified; R33.9 Retention of urine, unspecified; I10 Essential (primary) hypertension; N40.0 Benign prostatic hyperplasia without lower urinary tract symptoms; I07.1 Rheumatic tricuspid insufficiency; K59.00 Constipation, unspecified; E78.00 Pure hypercholesterolemia, unspecified; E78.2 Mixed hyperlipidemia; G80.9 Cerebral palsy, unspecified; E11.9 Type 2 diabetes mellitus without complications; M10.9 Gout, unspecified; D63.8 Anemia in other chronic diseases classified elsewhere; Z87.891 Personal history of nicotine dependence; Z95.810 Presence of automatic (implantable) cardiac defibrillator; Z79.82 Long term (current) use of aspirin; Z88.8 Allergy status to other drugs, medicaments and biological substances; W19.XXXD Unspecified fall, subsequent encounter
CPT/HCPCS: 36415; 73610; 80053; 82947; 84443; 85025; 93005

== ENCOUNTER → 2021-06-28 | Outpatient (CLI) | payer OTHER ==
[~2021-06-28] MED LIST changes: +AMIO200T65 PO; +ASPI-999 PO; +EZET10TA49 PO; +FAMO20TA5 PO; +FINA5TAB6 PO; +METO-333 PO; +TRM50T PO
--- NOTE | 2021-06-28 16:04 | Diagnostic Imaging Report ---
INDICATION: Right ankle pain, swelling, recheck fracture. COMPARISON: 06/23/2021. FINDINGS: Three views of the right ankle demonstrate a stable healing distal fibular fracture. The ankle mortise is intact. No adverse change. IMPRESSION: Healing stable distal fibular fracture. Dictated by: Dictated on workstation # [id number]
== END ==
LOC: ORTHO 12:28
PROVIDERS: ATTEND Orthopaedic Surgery
DX: S82.64XD Nondisplaced fracture of lateral malleolus of right fibula, subsequent encounter for closed fracture with routine healing (principal); X58.XXXD Exposure to other specified factors, subsequent encounter
CPT/HCPCS: 73610

== ENCOUNTER 2021-07-07 05:37 | Outpatient (CLI) | payer OTHER ==
[~2021-07-07] VITALS: Ht 182.9 cm; Wt 95.5 kg
== END 2021-07-10 13:17 | disposition home or self-care (01) ==
LOC: PREOP 05:37
PROVIDERS: ATTEND Urology
DX: Z01.818 Encounter for other preprocedural examination (principal)

== ENCOUNTER 2021-07-07 10:37 | Emergency (ER) | payer OTHER ==
[~2021-07-07] VITALS: Ht 182.8 cm; Wt 95.2 kg
[2021-07-07 10:45] VITALS: BP 167/106
--- NOTE | 2021-07-07 11:10 | ED GU-Male ---
General Chief Complaint: Catheter/Drain/Tube Problems Stated Complaint: CATHETER WONT DRAIN - PRESSURE Source: patient Exam Limitations: no limitations History of Present Illness Date Seen by Provider: July 07, 2021 Time Seen by Provider: 11:07 Initial Comments To ER with c/o mendez catheter not draining and feeling of a full bladder. No fevers or chills. Chronic urinary retention. This catheter in place x3 weeks. Timing/Duration: constant Severity/Quality: cramping Location: suprapubic Radiation: none Activities at Onset: none Prior Genitourinary Problems: none Associated Symptoms: denies symptoms Allergies and Home Medications Allergies Uncoded Allergies: UNKNOWN CHOLESTEROL MED. (Allergy, Unknown, 02/12/18) Patient Home Medication List Home Medication List Reviewed: Yes Acetaminophen (Tylenol Extra Strength) 500 Mg Tablet, 1,000 MG PO Q8H PRN for PAIN-MILD (1-4) OR TEMPATURE, (Reported) Entered as Reported by: GIO CARLOS on 05/19/21 154 Albuterol Sulfate (Proair Hfa) 1 Puff Puff, 2 PUFF IH QID PRN for SHORTNESS OF BREATH, (Reported) Entered as Reported by: GIO CARLOS on 05/19/21 1548 Allopurinol (Allopurinol) 100 Mg Tablet, 100 MG PO DAILY, (Reported) Entered as Reported by: GIO CARLOS on 05/19/21 1548 Amiodarone HCl (Amiodarone HCl) 200 Mg Tablet, 200 MG PO DAILY Prescribed by: VALERIY POTTS on 06/15/21 0636 Antiox #11/Om3/Dha/Epa/Lut/Salvador (Eye Health Adult 50+ Softgel) 1 Each Capsule, 1 EACH PO DAILY, (Reported) Entered as Reported by: GIO CARLOS on 05/19/21 1549 Ascorbate Calcium (Vitamin C) 500 Mg Tablet, 500 MG PO DAILY, (Reported) Entered as Reported by: GIO CARLOS on 05/19/21 1548 Aspirin (Aspirin) 81 Mg Tab.chew, 81 MG PO DAILY, (Reported) Entered as Reported by: GIO CARLOS on 06/05/21 1217 Atorvastatin Calcium (Atorvastatin Calcium) 80 Mg Tablet, 40 MG PO HS, (Reported) Entered as Reported by: GIO CARLOS on 06/09/21 1435 Cyanocobalamin (Vitamin B-12) (Vitamin B-12) 1,000 Mcg Tablet, 1,000 MCG PO DAILY, (Reported) Entered as Reported by: GIO CARLOS on 05/19/21 154 Cyclobenzaprine HCl (Cyclobenzaprine HCl) 10 Mg Tablet, 10 MG PO HS PRN for MUSCLE SPASMS, (Reported) Entered as Reported by: GIO CARLOS on 05/19/21 154 Ezetimibe (Ezetimibe) 10 Mg Tablet, 10 MG PO HS Prescribed by: VALERIY POTTS on 06/15/21635 Finasteride (Finasteride) 5 Mg Tablet, 5 MG PO DAILY Prescribed by: VALERIY POTTS on 06/15/21635 Metoprolol Tartrate (Metoprolol Tartrate) 25 Mg Tablet, 50 MG PO BID Prescribed by: VALERIY POTTS on 06/15/21635 Multivitamin with Minerals (Multivitamins with Minerals) 1 Each Tablet, 1 EACH PO DAILY, (Reported) Entered as Reported by: GIO CARLOS on 05/19/211548 Tramadol HCl (Tramadol HCl) 50 Mg Tablet, 50 MG PO TID PRN for PAIN-MODERATE (5- 7) Prescribed by: VALERIY POTTS on 06/15/21635 Review of Systems Review of Systems Constitutional: see HPI EENTM: see HPI Respiratory: no symptoms reported Cardiovascular: no symptoms reported Genitourinary: see HPI Musculoskeletal: no symptoms reported Skin: no symptoms reported Psychiatric/Neurological: No Symptoms Reported Endocrine: No Symptoms Reported Past Evtnnhz-Iavkcq-Bxqrjo Hx Immunizations Up To Date First/Initial COVID19 Vaccinat: 2020 - UNSURE OF MONTH. Second COVID19 Vaccination Eugenio: 2020- UNSURE OF MONTH. Past Medical History Surgery/Hospitalization HX: PACEMAKER, ICD, CARDIOMYOPATHY, HIGH CHOLESTORL, LEFT ARM AND LEFT LEG SURGERY, CHRONIC CONSTIPATION, GOUT, NIDD, BPH. Surgeries: Yes (PACEMAKER/DEF, ANAL FISTULA, ) Defibrillator, Orthopedic, Pacemaker Respiratory: No Cardiac: Yes (CARDIOMYOPATHY, AVRD) Cardiomyopathy, High Cholesterol Neurological: No Cerebral Palsy Genitourinary: No Benign Prostatic Hyperpl, Kidney Infection, Prostate Problems, Bladder Infection Gastrointestinal: Yes Chronic Constipation Musculoskeletal: Yes Gout Endocrine: Yes Diabetes, Non-Insulin dep Cancer: No Psychosocial: No Integumentary: No Physical Exam Vital Signs Capillary Refill : Height, Weight, BMI Height: 6'1.00" Weight: 235lbs. oz. [id number]; 31.68 BMI Method:Stated General Appearance: WD/WN, no apparent distress Neck: non-tender, full range of motion Respiratory: normal breath sounds, no respiratory distress, no accessory muscle use Gastrointestinal: normal bowel sounds, soft, tenderness (suprapubic) Neurologic/Psychiatric: alert, normal mood/affect, oriented x 3 Skin: normal color, warm/dry Comments 16 faroese mendez cath balloon deflated and cath removed easily. New mendez cath 16 fr inserted easily. Sample collected. Progress/Results/Core Measures Suspected Sepsis SIRS Temperature: Pulse: Respiratory Rate: Blood Pressure / Mean: Results/Orders Lab Results Laboratory Tests Test 07/07/21 11:01 Range/Units My Orders Orders - ANNE ANDREWS APRN Ua Culture If Indicated (07/07/21 11:06) Mendez Cath (07/07/21 11:06) Vital Signs/I&O Capillary Refill : Departure Impression Primary Impression: Obstructed Mendez catheter Disposition: HOME, SELF-CARE Condition: Stable Departure-Patient Inst. Decision time for Depature: 11:09 Referrals: RICHY SANTOS (PCP/Family) Primary Care Physician Patient Instructions: How to Care for Your Mendez Catheter Add. Discharge Instructions: 1. Keep your phone on, we'll call you if your urine indicates need for an antib iotic (sometime this afternoon). All discharge instructions reviewed with patient and/or family. Voiced understanding. ANNE ANDREWS APRN July 07, 2021 11:10
[2021-07-07 11:11] LABS: BILIRUBIN,URINE NEGATIVE (NEGATIVE); CLARITY,URINE SL CLOUDY; COLOR,URINE YELLOW; GLUCOSE, URINE (UA) NEGATIVE (NEGATIVE); KETONES,URINE NEGATIVE (NEGATIVE); LEUKOCYTE ESTERASE ,URINE 3+ (NEGATIVE); NITRITE,URINE POSITIVE (NEGATIVE); PH,URINE 8.5 (5-9); PROTEIN,URINE 1+ (NEGATIVE)
[2021-07-07 11:23] LABS: BACTERIA,URINE FEW /HPF; TRIPLE PHOSPHATE CRYSTAL,UR MODERATE /LPF
== END 2021-07-07 11:21 | disposition home or self-care (01) ==
LOC: EDUNIT# 10:37 → ER 10:38
DX: T83.091A Other mechanical complication of indwelling urethral catheter, initial encounter (principal)
CPT/HCPCS: 51702; 81000; 87077; 87088; 87186

== ENCOUNTER 2021-07-15 22:58 | Emergency (ER) | payer OTHER ==
[~2021-07-15] VITALS: Ht 183 cm; Wt 104.3 kg
[2021-07-15 23:30] VITALS: BP 175/102
--- NOTE | 2021-07-15 23:43 | ED GU-Male ---
General Stated Complaint: CATHETER PRESSURE / NOT DRAINING Source: patient, spouse History of Present Illness Date Seen by Provider: July 15, 2021 Time Seen by Provider: 23:30 Initial Comments PT ARRIVES VIA POV FROM HOME WITH PT HAS HAD MCDUFFIE CATHETER IN PLACE FOR SEVERAL WEEKS FOR URINARY RETENTION DUE TO PROSTATE PROBLEMS PT WAS SCHEDULED TO HAVE PROSTATE SURGERY [address] PORTER, BUT SURGERY WAS CANCELLED DUE TO HIGH RISK RELATED TO CHRONIC HEART PROBLEMS WAS HERE 07/07/21 FOR SAME AND HAD CATHETER REPLACED, URINE CULTURE WAS DONE AND GREW OUT PROTEUS--SENSITIVE TO EVERYTHING EXCEPT MACROBID. NO RX FOR ANTIBIOTIC WAS ORDERED. PT SAW DR. PORTER ON SATURDAY AND HAD FLOMAX AND URECHOLINE WAS ADDED TO FINASTERIDE. HAS A FOLLOW UP APPOINTMENT WITH DR. PORTER THIS SATURDAY PT STATES HE NOTICE THE CATHETER WAS NOT DRAINING 5-6 HOURS AGO. C/O ALOT OF BLADDER PRESSURE AND URGE TO URINATE BUT CANNOT. NO FEVER NO NAUSEA/VOMITING Allergies and Home Medications Allergies Uncoded Allergies: UNKNOWN CHOLESTEROL MED. (Allergy, Unknown, UNKNOWN STATES CAN'T REMEMBER MEDIATION NOR SIDE EFFECT, 07/10/21) Patient Home Medication List Home Medication List Reviewed: Yes Acetaminophen (Tylenol Extra Strength) 500 Mg Tablet, 1,000 MG PO Q8H PRN for PAIN-MILD (1-4) OR TEMPATURE, (Reported) Entered as Reported by: GIO CARLOS on 05/19/211547 Albuterol Sulfate (Proair Hfa) 1 Puff Puff, 2 PUFF IH QID PRN for SHORTNESS OF BREATH, (Reported) Entered as Reported by: GIO CARLOS on 05/19/211547 Allopurinol (Allopurinol) 100 Mg Tablet, 100 MG PO DAILY, (Reported) Entered as Reported by: GIO CARLOS on 05/19/211547 Amiodarone HCl (Amiodarone HCl) 200 Mg Tablet, 200 MG PO DAILY Prescribed by: VALERIY POTTS on 06/15/21 0636 Antiox #11/Om3/Dha/Epa/Lut/Salvador (Eye Health Adult 50+ Softgel) 1 Each Capsule, 1 EACH PO DAILY, (Reported) Entered as Reported by: GIO CARLOS on 05/19/21 154 Ascorbate Calcium (Vitamin C) 500 Mg Tablet, 500 MG PO DAILY, (Reported) Entered as Reported by: GIO CARLOS on 05/19/21 1548 Aspirin (Aspirin) 81 Mg Tab.chew, 81 MG PO DAILY, (Reported) Entered as Reported by: GIO CARLOS on 06/05/21 1217 Atorvastatin Calcium (Atorvastatin Calcium) 80 Mg Tablet, 40 MG PO HS, (Reported) Entered as Reported by: GIO CARLOS on 06/09/21 1435 Cefdinir (Cefdinir) 300 Mg Capsule, 300 MG PO BID Prescribed by: WYATT VALDEZ on 07/16/21 0040 Cyanocobalamin (Vitamin B-12) (Vitamin B-12) 1,000 Mcg Tablet, 1,000 MCG PO DAILY, (Reported) Entered as Reported by: GIO CARLOS on 05/19/21 154 Cyclobenzaprine HCl (Cyclobenzaprine HCl) 10 Mg Tablet, 10 MG PO HS PRN for MUSCLE SPASMS, (Reported) Entered as Reported by: GIO CARLOS on 05/19/21 154 Ezetimibe (Ezetimibe) 10 Mg Tablet, 10 MG PO HS Prescribed by: VALERIY POTTS on 06/15/21635 Finasteride (Finasteride) 5 Mg Tablet, 5 MG PO DAILY Prescribed by: VALERIY POTTS on 06/15/21635 Metoprolol Tartrate (Metoprolol Tartrate) 25 Mg Tablet, 50 MG PO BID Prescribed by: VALERIY POTTS on 06/15/21635 Multivitamin with Minerals (Multivitamins with Minerals) 1 Each Tablet, 1 EACH PO DAILY, (Reported) Entered as Reported by: GIO CARLOS on 05/19/21 154 Tramadol HCl (Tramadol HCl) 50 Mg Tablet, 50 MG PO TID PRN for PAIN-MODERATE (5- 7) Prescribed by: VALERIY POTTS on 06/15/21635 Review of Systems Review of Systems Constitutional: no symptoms reported Respiratory: no symptoms reported Cardiovascular: no symptoms reported Gastrointestinal: see HPI Genitourinary: see HPI Musculoskeletal: no symptoms reported Skin: no symptoms reported Psychiatric/Neurological: No Symptoms Reported Endocrine: No Symptoms Reported Hematologic/Lymphatic: No Symptoms Reported Past Qcnrjnx-Jjhlca-Kjzsst Hx Patient Social History Tobacco Use?: No Substance use?: No Alcohol Use?: No Immunizations Up To Date First/Initial COVID19 Vaccinat: 2020 - UNSURE OF MONTH. Second COVID19 Vaccination Eugenio: 2020- UNSURE OF MONTH. Past Medical History Surgery/Hospitalization HX: PACEMAKER, ICD, CARDIOMYOPATHY, HIGH CHOLESTORL, LEFT ARM AND LEFT LEG SURGERY, CHRONIC CONSTIPATION, GOUT, NIDD, BPH. Surgeries: Yes (PACEMAKER/DEF, ANAL FISTULA, ) Defibrillator, Orthopedic, Pacemaker, Rectal Respiratory: No Cardiac: Yes (CARDIOMYOPATHY, AVRD; V-TACH) Cardiomyopathy, Chronic Edema/Swelling, High Cholesterol, Irregular Heartbeat Neurological: Yes Cerebral Palsy Genitourinary: Yes Benign Prostatic Hyperpl, Kidney Infection, Prostate Problems, Bladder Infection Gastrointestinal: Yes Chronic Constipation Musculoskeletal: Yes Gout Endocrine: Yes Diabetes, Non-Insulin dep HEENT: No Cancer: No Psychosocial: No Integumentary: No Blood Disorders: No Physical Exam Vital Signs Vital Signs - First Documented 07/15/21 23:30 Temp 36.8 Pulse 63 Resp 22 B/P (MAP) 175/102 (126) Pulse Ox 95 O2 Delivery Room Air Capillary Refill : Height, Weight, BMI Height: 6'1.00" Weight: 235lbs. oz. 106.068769ez; 28.00 BMI Method:Stated General Appearance: WD/WN, no apparent distress, other (WALKS IN ON HIS OWN WITHOUT DIFFICULTY) Cardiovascular: regular rate, rhythm Respiratory: normal breath sounds Gastrointestinal: soft, tenderness, other (DISTENDED BLADDER WITH TENDERNESS OVER BLADDER; MCDUFFIE CATHETER TUBING IS HEAVILY COATED WITH SEDIMENT. NO URINE IN CATHETER TUBING. SMALL AMOUNT OF DARK CLOUDY URINE IN MCDUFFIE BAG) Extremities: pedal edema (1+) Neurologic/Psychiatric: no motor/sensory deficits, alert, normal mood/affect, oriented x 3 Skin: normal color, warm/dry Progress/Results/Core Measures Suspected Sepsis SIRS Temperature: Pulse: Respiratory Rate: Blood Pressure / Mean: Results/Orders Lab Results Laboratory Tests Test 07/15/21 23:55 Range/Units Urine Color YELLOW Urine Clarity CLEAR Urine pH 8.5 5-9 Urine Specific [place] 1.010 L 1.016-1.022 Urine Protein 2+ H NEGATIVE Urine Glucose (UA) NEGATIVE NEGATIVE Urine Ketones NEGATIVE NEGATIVE Urine Nitrite POSITIVE H NEGATIVE Urine Bilirubin NEGATIVE NEGATIVE Urine Urobilinogen 0.2 < = 1.0 MG/DL Urine Leukocyte Esterase 3+ H NEGATIVE Urine RBC (Auto) 2+ H NEGATIVE Urine RBC 5-10 H /HPF Urine WBC 50-100 H /HPF Urine Squamous Epithelial Cells RARE /HPF Urine Crystals PRESENT H /LPF Urine Triple Phosphate Crystals MODERATE H /LPF Urine Amorphous Sediment FEW SHARIF PHOSPHATE H /LPF Urine Bacteria LARGE H /HPF Urine Casts NONE /LPF Urine Mucus NEGATIVE /LPF Urine Culture Indicated YES My Orders Orders - WYATT VALDEZ DO Catheter(Urinary) Insert & Ass 03,15 (07/15/21 23:33) Ua Culture If Indicated (07/15/21 23:33) Cefdinir Capsule (Omnicef Capsule) (07/15/21 23:45) Urine Culture (07/15/21 23:55) Medications Given in ED Current Medications Medications Dose Ordered Sig/Susan Route Start Time Stop Time Status Last Admin Dose Admin Cefdinir 300 mg ONCE ONCE PO 07/15/21 23:45 07/15/21 23:46 DC 07/16/21 00:05 300 MG Vital Signs/I&O 07/15/21 23:30 Temp 36.8 Pulse 63 Resp 22 B/P (MAP) 175/102 (126) Pulse Ox 95 O2 Delivery Room Air Capillary Refill : Progress Note : Progress Note MCDUFFIE CATHETER REMOVED AND REPLACED. IMMEDIATE RETURN OF > 550 ML OF VERY CLOUDY URINE, AND A TOTAL OF 900 ML OUT PRIOR TO DISMISSAL. PT FEELS MUCH BETTER Departure Impression Primary Impression: Urinary retention due to benign prostatic hyperplasia Additional Impressions: Obstructed Mcduffie catheter UTI (urinary tract infection) due to urinary indwelling Mcduffie catheter Disposition: 01 HOME, SELF-CARE Condition: Improved Departure-Patient Inst. Decision time for Depature: 00:38 Referrals: NO,LOCAL PHYSICIAN (PCP) Primary Care Physician RICHY SANTOS (Family) Primary Care Physician ANABELLA PORTER MD Patient Instructions: Urinary Tract Infection, Adult (DC), How to Prevent Catheter Associated Urinary Tract Infections, How to Care for Your Mcduffie Cathet er, Male Add. Discharge Instructions: CONTINUE YOUR CURRENT MEDICATIONS FOLLOW UP WITH DR. PORTER THIS WEEK SCHEDULED Scripts Cefdinir (Cefdinir) 300 Mg Capsule 300 MG PO BID, #20 CAP Prov: WYATT VALDEZ DO 07/16/21 WYATT VALDEZ DO July 15, 2021 23:43
[2021-07-15] MEDS ORDERED: CEFDINIR 300 MG (OMNICEF) CAP PO ONE (23:45)
[2021-07-16 00:09] LABS: BILIRUBIN,URINE NEGATIVE (NEGATIVE); CLARITY,URINE CLEAR; COLOR,URINE YELLOW; GLUCOSE, URINE (UA) NEGATIVE (NEGATIVE); KETONES,URINE NEGATIVE (NEGATIVE); LEUKOCYTE ESTERASE ,URINE 3+ (NEGATIVE); NITRITE,URINE POSITIVE (NEGATIVE); PH,URINE 8.5 (5-9); PROTEIN,URINE 2+ (NEGATIVE)
[2021-07-16 00:36] LABS: AMORPHOUS SEDIMENT,UR FEW AMOR PHOSPHATE /LPF; BACTERIA,URINE LARGE /HPF; SQUAMOUS EPITHELIAL CELL,UR RARE /HPF; TRIPLE PHOSPHATE CRYSTAL,UR MODERATE /LPF; WBC,URINE 50-100 /HPF
[2021-07-16] MEDS ORDERED: CEFD300C3 PO ×2 (00:40→00:46)
== END 2021-07-16 00:50 | disposition home or self-care (01) ==
LOC: EDUNIT# 22:58 → ER 22:59
DX: T83.091A Other mechanical complication of indwelling urethral catheter, initial encounter (principal); T83.511A Infection and inflammatory reaction due to indwelling urethral catheter, initial encounter; N40.1 Benign prostatic hyperplasia with lower urinary tract symptoms; R33.8 Other retention of urine
CPT/HCPCS: 51702; 81000; 87077; 87088; 87186

== ENCOUNTER 2021-08-10 16:25 | Observation (INO) | payer OTHER ==
[~2021-08-10] VITALS: Ht 182.9 cm; Wt 103.8 kg
[~2021-08-10 16:25] MED LIST changes: +CEFD300C3 PO
[2021-08-10 17:07] LABS: BASOPHILS % (AUTO) 1 % (0-10); EOSINOPHILS # (AUTO) 0.2 10^3/uL (0.0-0.3); EOSINOPHILS % (AUTO) 3 % (0-10); HEMATOCRIT 41 % (40-54); HEMOGLOBIN 13.9 g/dL (13.3-17.7); LYMPHOCYTES # (AUTO) 1.6 10^3/uL (1.0-4.0); LYMPHOCYTES % (AUTO) 24 % (12-44); MEAN CORPUSCULAR HEMOGLOBIN 34 pg (25-34); MEAN CORPUSCULAR HGB CONC 34 g/dL (32-36); MEAN CORPUSCULAR VOLUME 100 fL (80-99); MEAN PLATELET VOLUME 9.8 fL (9.0-12.2); MONOCYTES # (AUTO) 0.6 10^3/uL (0.0-1.0); MONOCYTES % (AUTO) 9 % (0-12); NEUTROPHILS # (AUTO) 4.1 10^3/uL (1.8-7.8); NEUTROPHILS % (AUTO) 63 % (42-75); PLATELET COUNT 164 10^3/uL (130-400); WHITE BLOOD COUNT 6.5 10^3/uL (4.3-11.0)
[2021-08-10 17:14] LABS: ALBUMIN 3.9 GM/DL (3.2-4.5); POTASSIUM 3.7 MMOL/L (3.6-5.0)
--- NOTE | 2021-08-10 17:15 | ED General ---
General Chief Complaint: Dizziness/Syncope Stated Complaint: DIZZY, HYPERTENSION, VOMITTING, LOW BP Source of Information: Patient Exam Limitations: No Limitations (IRMA JOHANSEN MD) History of Present Illness Date Seen by Provider: Aug 10, 2021 Time Seen by Provider: 16:45 Initial Comments Here with significant other with report of low BP and vomiting yesterday and dizziness. The dizziness has been intermittent for a few years and patient has a variety of medical problems including history of V. tach and subsequent ablation but remains on amiodarone. Also has history of heart failure. Suffers from BPH and difficulty with urination as well as occasional UTIs. He is unable to have prostate surgery due to cardiac dysfunction. States that he has been urinating but its been more dribbling. Denies fever or chills. He and the significant other are worried due to the dizziness. Patient freely admits that he gets up and moves too fast and this may be part of the problem. Denies chest pain or breathing problems. He was able to walk and emergency department unassisted from the waiting room to his bed without difficulty today. Patient has been on and off urological medications and recently has stopped as they thought that had made the dizziness worse. This apparently was Urecholine. He is also had changes with blood pressure medicines and furosemide. He was off furosemide for a while but is back on it now because of heart failure concerns and swelling of his legs. Timing/Duration: 1-2 Days, Intermittent (Several months to years) Severity: Mild, Moderate Modifying Factors: improves with Rest Associated Systoms: No Chest Pain, No Cough, No Fever/Chills; Nausea/Vomiting; No Shortness of Air; Weakness (IRMA JOHANSEN MD) Initial Comments PCP is the [facility]. (DENA LINDA MD) Allergies and Home Medications Allergies Uncoded Allergies: UNKNOWN CHOLESTEROL MED. (Allergy, Unknown, UNKNOWN STATES CAN'T REMEMBER MEDIATION NOR SIDE EFFECT, 07/10/21) Patient Home Medication List Home Medication List Reviewed: Yes (IRMA JOHANSEN MD) Acetaminophen (Tylenol Extra Strength) 500 Mg Tablet, 1,000 MG PO Q8H PRN for PAIN-MILD (1-4) OR TEMPATURE, (Reported) Entered as Reported by: GIO CARLOS on 05/19/21 5424 Albuterol Sulfate (Proair Hfa) 1 Puff Puff, 2 PUFF IH QID PRN for SHORTNESS OF B REATH, (Reported) Entered as Reported by: GIO CARLOS on 05/19/21 154 Allopurinol (Allopurinol) 100 Mg Tablet, 100 MG PO DAILY, (Reported) Entered as Reported by: GIO CARLOS on 05/19/21 154 Amiodarone HCl (Amiodarone HCl) 200 Mg Tablet, 200 MG PO DAILY Prescribed by: VALERIY POTTS on 06/15/21635 Antiox #11/Om3/Dha/Epa/Lut/Salvador (Eye Health Adult 50+ Softgel) 1 Each Capsule, 1 EACH PO DAILY, (Reported) Entered as Reported by: GIO CARLOS on 05/19/21 154 Ascorbate Calcium (Vitamin C) 500 Mg Tablet, 500 MG PO DAILY, (Reported) Entered as Reported by: GIO CARLOS on 05/19/21 154 Aspirin (Aspirin) 81 Mg Tab.chew, 81 MG PO DAILY, (Reported) Entered as Reported by: GIO CARLOS on 06/05/21 1217 Atorvastatin Calcium (Atorvastatin Calcium) 80 Mg Tablet, 40 MG PO HS, (Reported) Entered as Reported by: GIO CARLOS on 06/09/21 1435 Cefdinir (Cefdinir) 300 Mg Capsule, 300 MG PO BID Prescribed by: WYATT VALDEZ on 07/16/21 0046 Cyanocobalamin (Vitamin B-12) (Vitamin B-12) 1,000 Mcg Tablet, 1,000 MCG PO DAILY, (Reported) Entered as Reported by: GIO CARLOS on 05/19/21 154 Cyclobenzaprine HCl (Cyclobenzaprine HCl) 10 Mg Tablet, 10 MG PO HS PRN for MUSCLE SPASMS, (Reported) Entered as Reported by: GIO CARLOS on 05/19/21 154 Ezetimibe (Ezetimibe) 10 Mg Tablet, 10 MG PO HS Prescribed by: VALERIY POTTS on 06/15/21635 Finasteride (Finasteride) 5 Mg Tablet, 5 MG PO DAILY Prescribed by: VALERIY POTTS on 06/15/21635 Metoprolol Tartrate (Metoprolol Tartrate) 25 Mg Tablet, 50 MG PO BID Prescribed by: VALERIY POTTS on 06/15/21 0636 Multivitamin with Minerals (Multivitamins with Minerals) 1 Each Tablet, 1 EACH PO DAILY, (Reported) Entered as Reported by: GIO CARLOS on 05/19/21 1549 Tramadol HCl (Tramadol HCl) 50 Mg Tablet, 50 MG PO TID PRN for PAIN-MODERATE (5- 7) Prescribed by: VALERIY POTTS on 06/15/21 0636 Review of Systems Review of Systems Constitutional: see HPI; No chills; dizziness (Room spinning); No fever Respiratory: No cough Cardiovascular: No chest pain; edema; No palpitations Gastrointestinal: No abdominal pain; nausea, vomiting Genitourinary: see HPI, frequency, hesitancy; No pain Musculoskeletal: No back pain, No muscle pain Skin: no symptoms reported Psychiatric/Neurological: Denies Headache; Weakness (IRMA JOHANSEN MD) All Other Systems Reviewed Negative Unless Noted: Yes (IRMA JOHANSEN MD) Past Bkwsotc-Bvudam-Cfwlex Hx Patient Social History Tobacco Use?: No Smokeless Tobacco Frequency: Never a User Use of E-Cig and/or Vaping dev: No Use of E-Cig and/or Vaping Art: Never a User Substance use?: No Alcohol Use?: No Pt feels they are or have been: No (IRMA JOHANSEN MD) Immunizations Up To Date First/Initial COVID19 Vaccinat: 2020 Second COVID19 Vaccination Eugenio: 2020 Third COVID19 Vaccination Date: 2021 COVID19 Vaccine Staffing Branch Manager: EVARISTO (IRMA JOHANSEN MD) Past Medical History Surgery/Hospitalization HX: PACEMAKER, ICD, CARDIOMYOPATHY, HIGH CHOLESTORL, LEFT ARM AND LEFT LEG SURGERY, CHRONIC CONSTIPATION, GOUT, NIDD, BPH. Surgeries: Yes (PACEMAKER/DEF, ANAL FISTULA, ) Defibrillator, Orthopedic, Pacemaker, Rectal Respiratory: No Cardiac: Yes (CARDIOMYOPATHY, AVRD; V-TACH) Cardiomyopathy, Chronic Edema/Swelling, High Cholesterol, Irregular Heartbeat Neurological: Yes Cerebral Palsy Genitourinary: Yes Benign Prostatic Hyperpl, Kidney Infection, Prostate Problems, Bladder Infection Gastrointestinal: Yes Chronic Constipation Musculoskeletal: Yes Gout Endocrine: Yes Diabetes, Non-Insulin dep HEENT: No Cancer: No Psychosocial: No Integumentary: No Blood Disorders: No (IRMA JOHANSEN MD) Family Medical History Reviewed Nursing Family Hx (IRMA JOHANSEN MD) No Pertinent Family Hx (IRMA JOHANSEN MD) Physical Exam Vital Signs Vital Signs - First Documented 08/10/21 16:33 Temp 36.1 Pulse 67 Resp 15 B/P (MAP) 126/89 (101) O2 Delivery Room Air (DNEA LINDA MD) Vital Signs Capillary Refill : (IRMA JOHANSEN MD) Height, Weight, BMI Height: 6'1.00" Weight: 235lbs. oz. 106.874062bt; 31.00 BMI Method:Stated General Appearance: No Apparent Distress, WD/WN HEENT: PERRL/EOMI, Pharynx Normal Neck: Non Tender, Supple Respiratory: Lungs Clear, Normal Breath Sounds Cardiovascular: Regular Rate, Rhythm, No Murmur Gastrointestinal: Non Tender, Soft Back: Normal Inspection, No CVA Tenderness, No Vertebral Tenderness Extremity: Normal Range of Motion, Non Tender, No Calf Tenderness, Pedal Edema (2+ to mid tibia bilateral) Neurologic/Psychiatric: Alert, Oriented x3, No Motor/Sensory Deficits (IRMA JOHANSEN MD) Progress/Results/Core Measures Suspected Sepsis SIRS Temperature: Pulse: Respiratory Rate: Laboratory Tests 08/10/21 17:00: White Blood Count 6.5 Blood Pressure / Mean: Laboratory Tests 08/10/21 17:00: Creatinine 1.41H, Platelet Count 164, Total Bilirubin 0.5 (IRMA JOHANSEN MD) Results/Orders Lab Results Laboratory Tests Test 08/10/21 17:00 08/10/21 17:56 08/10/21 18:55 08/10/21 19:50 Range/Units White Blood Count 6.5 4.3-11.0 10^3/uL Red Blood Count 4.09 L 4.30-5.52 10^6/uL Hemoglobin 13.9 13.3-17.7 g/dL Hematocrit 41 40-54 % Mean Corpuscular Volume 100 H 80-99 fL Mean Corpuscular Hemoglobin 34 25-34 pg Mean Corpuscular Hemoglobin Concent 34 32-36 g/dL Red Cell Distribution Width 13.6 10.0-14.5 % Platelet Count 164 130-400 10^3/uL Mean Platelet Volume 9.8 9.0-12.2 fL Immature Granulocyte % (Auto) 0 % Neutrophils (%) (Auto) 63 42-75 % Lymphocytes (%) (Auto) 24 12-44 % Monocytes (%) (Auto) 9 0-12 % Eosinophils (%) (Auto) 3 0-10 % Basophils (%) (Auto) 1 0-10 % Neutrophils # (Auto) 4.1 1.8-7.8 10^3/uL Lymphocytes # (Auto) 1.6 1.0-4.0 10^3/uL Monocytes # (Auto) 0.6 0.0-1.0 10^3/uL Eosinophils # (Auto) 0.2 0.0-0.3 10^3/uL Basophils # (Auto) 0.0 0.0-0.1 10^3/uL Immature Granulocyte # (Auto) 0.0 0.0-0.1 10^3/uL D-Dimer 1.29 H 0.00-0.49 UG/ML Sodium Level 140 135-145 MMOL/L Potassium Level 3.7 3.6-5.0 MMOL/L Chloride Level 104 98-107 MMOL/L Carbon Dioxide Level 24 21-32 MMOL/L Anion Gap 12 5-14 MMOL/L Blood Urea Nitrogen 31 H 7-18 MG/DL Creatinine 1.41 H 0.60-1.30 MG/DL Estimat Glomerular Filtration Rate 52 BUN/Creatinine Ratio 22 Glucose Level 228 H 70-105 MG/DL Calcium Level 9.3 8.5-10.1 MG/DL Corrected Calcium 9.4 8.5-10.1 MG/DL Magnesium Level 2.1 1.6-2.4 MG/DL Total Bilirubin 0.5 0.1-1.0 MG/DL Aspartate Amino Transf (AST/SGOT) 30 5-34 U/L Alanine Aminotransferase (ALT/SGPT) 31 0-55 U/L Alkaline Phosphatase 106 40-136 U/L Troponin I 0.187 H 0.171 H <0.028 NG/ML B-Type Natriuretic Peptide 289.4 H <100.0 PG/ML Total Protein 7.9 6.4-8.2 GM/DL Albumin 3.9 3.2-4.5 GM/DL Urine Color YELLOW Urine Clarity CLEAR Urine pH 5.5 5-9 Urine Specific [place] 1.015 L 1.016-1.022 Urine Protein NEGATIVE NEGATIVE Urine Glucose (UA) NEGATIVE NEGATIVE Urine Ketones NEGATIVE NEGATIVE Urine Nitrite NEGATIVE NEGATIVE Urine Bilirubin NEGATIVE NEGATIVE Urine Urobilinogen 0.2 < = 1.0 MG/DL Urine Leukocyte Esterase NEGATIVE NEGATIVE Urine RBC (Auto) NEGATIVE NEGATIVE Urine RBC NONE /HPF Urine WBC 0-2 /HPF Urine Squamous Epithelial Cells 0-2 /HPF Urine Renal Epithelial Cells NONE /HPF Urine Crystals NONE /LPF Urine Bacteria NEGATIVE /HPF Urine Casts NONE /LPF Urine Mucus NEGATIVE /LPF Urine Culture Indicated NO Influenza Type A (RT-PCR) Not Detected Not Detecte Influenza Type B (RT-PCR) Not Detected Not Detecte SARS-CoV-2 RNA (RT-PCR) Not Detected Not Detecte (DENA LINDA MD) My Orders Orders - DENA LINDA MD Troponin I [place] (08/10/21 19:00) Orthostatic Vital Signs (Adult (08/10/21 18:09) Covid 19 Inhouse Test (08/10/21 18:48) Influenza A And B By Pcr (08/10/21 18:48) Fibrin Degradation Products (08/10/21 18:49) Ct Angio Chest W (08/10/21 20:42) Lactated Ringers (Lr 1000 Ml Iv Solution (08/10/21 20:45) Iohexol Injection (Omnipaque 350 Mg/Ml 1 (08/10/21 21:30) Sodium Chloride Flush (Catheter Flush Sy (08/10/21 21:30) Ns (Ivpb) (Sodium Chloride 0.9% Ivpb Bag (08/10/21 21:30) Enoxaparin Injection (Lovenox Injection) (08/10/21 22:15) Ed Admission (Communication) (08/10/21 22:49) (DENA LINDA MD) Medications Given in ED Current Medications Medications Dose Ordered Sig/Susan Route Start Time Stop Time Status Last Admin Dose Admin Enoxaparin Sodium 100 mg ONCE ONCE SC 08/10/21 22:15 08/10/21 22:16 DC 08/10/21 22:40 100 MG Iohexol 100 ml ONCE ONCE IV 08/10/21 21:30 08/10/21 21:31 DC 08/10/21 21:25 90 ML Lactated Ringer's 1,000 ml @ 0 mls/hr Q0M ONCE IV 08/10/21 20:45 08/10/21 20:46 DC 08/10/21 20:53 0 MLS/HR Sodium Chloride 10 ml NEEDED PRN IV 08/10/21 21:30 08/10/21 21:26 10 ML Sodium Chloride 100 ml ONCE ONCE IV 08/10/21 21:30 08/10/21 21:31 DC 08/10/21 21:26 80 ML (DENA LINDA MD) Vital Signs/I&O 08/10/21 08/10/21 16:33 18:40 Temp 36.1 Pulse 67 65 70 70 Resp 15 B/P (MAP) 126/89 (101) 126/79 (95) 119/82 (94) 128/78 (95) O2 Delivery Room Air 08/11/21 00:00 Intake Total 1000 ml Balance 1000 ml (DENA LINDA MD) Vital Signs/I&O Capillary Refill : (IRMA JOHANSEN MD) Progress Note : Progress Note Seen and evaluated. Med list reviewed from patient's home med list. IV, labs, EKG chest x-ray ordered. UA ordered. I have reviewed previous cultures and he has recently had Proteus mirabilis as well as Enterococcus faecalis (more remote). Proteus infection last noted last month. We will review for heart failure findings via chest x-ray and BNP. Patient may be intravascularly volume depleted furosemide and may need small bolus of fluid. We will hold on pending labs. Also concerned about possible urinary tract infection given history. Monitor patient. (IRMA JOHANSEN MD) Progress Note #1: Time: 19:01 Progress Note I assumed care of this gentleman from Dr. Johansen at shift change. Verbal report was reviewed. Labs have been reviewed. Urinalysis pending. I have reassessed patient. During my assessment he was noted to be hypoxic without reason. Oxygen saturation was 86% on room air. This did not resolve with deep breathing or changing fingers or extremities with the pulse oximeter. Supplemental oxygen has been applied by nasal cannula. He reports feeling short of breath for about a month but denies other symptoms of infectious illness such as cough or fever. Orthostatic blood pressures were unremarkable and are as follows Lying 126/79, heart rate 65 Sitting 119/82, heart rate 70 Standing 128/78, heart rate 70 Troponin was elevated. We will repeat a troponin at the 2-hour georgette to obtain a trend. Patient denied chest pain. We will interrogate his pacemaker/defibrillator as he does have a history of ventricular tachycardia causing elevated troponin prior to his admission in May. He has since had an ablation performed at [facility]. Because of his noted hypoxia, we will also check a swab for COVID-19 and influenza as well as obtain a D-dimer screening. Neither patient nor his recall having had carotid imaging performed. Patient states he is usually upright when he experiences dizziness. He denies having any dizziness for the last 5 or 6 hours. He states he has a vertiginous sensation and difficulty with balance when he gets dizzy more so than lightheaded sensation. Progress Note #2: Time: 22:52 Progress Note Patient had an elevated D-dimer. CT angiogram was obtained and demonstrated no pulmonary embolus. However, there was right heart strain noted. This was discussed with Dr. Rivera. He requested further evaluation with a VQ scan in the morning and presumptive treatment with therapeutic Lovenox this evening. He also requested an echocardiogram in the morning. Case was discussed with Dr. Potts who placed admission orders. I discussed CODE STATUS with the patient and he requested to be full code. Lovenox dose was administered in the ER. Home medications were reviewed and there were no critical medications that needed to be administered this evening. Sotalol is on his medication list for twice daily dosing but he states he no longer takes it. Pacemaker/Defibrillator was interrogated and demonstrated no concerning rhythms. (DENA LINDA MD) ECG Initial ECG Impression Date: Aug 10, 2021 Initial ECG Impression Time: 17:10 Initial ECG Rate: 64 Comment Sinus rhythm with first-degree AV block. Left axis deviation noted. Low voltage throughout. Similar to previous but worsening left axis deviation from 06/14/2021. Right bundle branch block continues. Interpreted by me. (IRMA JOHANSEN MD) Diagnostic Imaging Diagonstic Imaging: Xray Plain Films/CT/US/NM/MRI: chest Comments [facility] [place], [place] NAME: [facility] REC#: [id number] PT STATUS: REG ER : 1945 PHYSICIAN: IRMA JOHANSNE MD ADMIT DATE: 08/10/21/ER Draft Date of Exam:08/10/21 CHEST 1 VIEW, AP/PA ONLY EXAMINATION: Chest, one view. HISTORY: Dizziness. COMPARISON: 05/19/2021. FINDINGS: Stable enlargement of the cardiac silhouette with left-sided cardiac device placement. The lungs are clear without consolidation, pleural effusion, or pneumothorax. The osseous structures are intact. IMPRESSION: 1. No acute radiographic abnormality in the chest. Dictated on workstation # [id number] Dict: 08/10/211718 Trans: 08/10/211721 [id number] Interpreted by: MATEUS MCDONNELL DO Electronically signed by: (IRMA JOHANSEN MD) Diagonstic Imaging: CT Plain Films/CT/US/NM/MRI: chest Comments CT angiogram chest viewed by me and report reviewed. See report below: NAME: VIPIN [facility] REC#: [id number] PT STATUS: REG ER : 1945 PHYSICIAN: DENA LINDA MD ADMIT DATE: 08/10/21/ER Signed Date of Exam:08/10/21 CT ANGIO CHEST W PROCEDURE: CT angiography of the chest with contrast. TECHNIQUE: Multiple contiguous axial images were obtained through the chest after uneventful bolus administration of intravenous contrast. 3D reconstructed CTA MIP acquisitions were also performed. Auto Exposure Controls were utilized during the CT exam to meet ALARA standards for radiation dose reduction. INDICATION: Hypertension and dizziness. FINDINGS: The lungs are clear. There is minimal interstitial edema in the dependent portions of the lung bases. There is cardiomegaly. There is calcific atherosclerosis of the aorta but no aneurysm or dissection. There are no appreciable pulmonary emboli. The right ventricle is dilated and there is reflux of contrast into the hepatic veins suggesting right heart failure. This may be due to pulmonary valve stenosis. IMPRESSION: Probable right pulmonary valvular stenosis causing elevated right heart pressures. There are no appreciable pulmonary emboli. Dictated by: Dictated on workstation # [id number] Dict: 08/10/212133 Trans: 08/10/212148 [facility] [id number] Interpreted by: IRMA MCDONNELL MD Electronically signed by: IRMA MCDONNELL MD 08/10/212148 (DENA LINDA MD) Departure Communication (Admissions) Time/Spoke to Admitting Phy: 22:45 Dr. Potts Time/Spoke to Consulting Phy: 22:10 Dr. Rivera (DENA LINDA MD) Impression Primary Impression: Hypoxia Additional Impressions: Dizziness Acute renal insufficiency Elevated d-dimer Disposition: ADMITTED INPATIENT Condition: Stable Admissions Decision to Admit Reason: Admit from ER (General) Decision to Admit/Date: Aug 10, 2021 Time/Decision to Admit Time: 22:45 (DENA LINDA MD) Departure-Patient Inst. Referrals: NO,LOCAL PHYSICIAN (PCP) Primary Care Physician RICHY SANTOS (Family) Primary Care Physician IRMA JOHANSEN MD Aug 10, 2021 17:15 DENA LINDA MD Aug 10, 2021 19:06
[2021-08-10 17:16] LABS: CALCIUM 9.3 MG/DL (8.5-10.1)
[2021-08-10 17:17] LABS: TOTAL PROTEIN 7.9 GM/DL (6.4-8.2)
[2021-08-10 17:19] LABS: BILIRUBIN,TOTAL 0.5 MG/DL (0.1-1.0)
[2021-08-10 17:20] LABS: CREATININE SERUM 1.41 MG/DL (0.60-1.30)
[2021-08-10 17:23] LABS: MAGNESIUM 2.1 MG/DL (1.6-2.4)
--- NOTE | 2021-08-10 17:23 | Diagnostic Imaging Report ---
EXAMINATION: Chest, one view. HISTORY: Dizziness. COMPARISON: 05/19/2021. FINDINGS: Stable enlargement of the cardiac silhouette with left-sided cardiac device placement. The lungs are clear without consolidation, pleural effusion, or pneumothorax. The osseous structures are intact. IMPRESSION: 1. No acute radiographic abnormality in the chest. Dictated by: Dictated on workstation # [id number]
[2021-08-10 18:05] LABS: BILIRUBIN,URINE NEGATIVE (NEGATIVE); CLARITY,URINE CLEAR; COLOR,URINE YELLOW; GLUCOSE, URINE (UA) NEGATIVE (NEGATIVE); KETONES,URINE NEGATIVE (NEGATIVE); LEUKOCYTE ESTERASE ,URINE NEGATIVE (NEGATIVE); NITRITE,URINE NEGATIVE (NEGATIVE); PH,URINE 5.5 (5-9); PROTEIN,URINE NEGATIVE (NEGATIVE)
[2021-08-10 18:40] VITALS: BP_SYST 119; BP_SYST 126; BP_SYST 128; BP_DIAS 78; BP_DIAS 79; BP_DIAS 82
[2021-08-10 19:02] LABS: BACTERIA,URINE NEGATIVE /HPF; SQUAMOUS EPITHELIAL CELL,UR 0-2 /HPF; WBC,URINE 0-2 /HPF
[2021-08-10] MEDS ORDERED: LACTATED RINGERS 1,000 ML IV ONE (20:45)
[2021-08-10] MEDS ORDERED: CATHETER FLUSH 10 ML SYR IV PRN (21:30)
[2021-08-10] MEDS ORDERED: NS 100 ML (IVPB) BAG IV ONE (21:30)
[2021-08-10] MEDS ORDERED: IOHEXOL 350 MG/ML 100 ML (OMNIPAQUE 350) VIAL IV ONE (21:30)
--- NOTE | 2021-08-10 21:43 | Diagnostic Imaging Report ---
PROCEDURE: CT angiography of the chest with contrast. TECHNIQUE: Multiple contiguous axial images were obtained through the chest after uneventful bolus administration of intravenous contrast. 3D reconstructed CTA MIP acquisitions were also performed. Auto Exposure Controls were utilized during the CT exam to meet ALARA standards for radiation dose reduction. INDICATION: Hypertension and dizziness. FINDINGS: The lungs are clear. There is minimal interstitial edema in the dependent portions of the lung bases. There is cardiomegaly. There is calcific atherosclerosis of the aorta but no aneurysm or dissection. There are no appreciable pulmonary emboli. The right ventricle is dilated and there is reflux of contrast into the hepatic veins suggesting right heart failure. This may be due to pulmonary valve stenosis. IMPRESSION: Probable right pulmonary valvular stenosis causing elevated right heart pressures. There are no appreciable pulmonary emboli. Dictated by: Dictated on workstation # [id number]
[2021-08-10] MEDS ORDERED: ENOXAPARIN 100 MG/1 ML (LOVENOX) SYR SC ONE (22:15)
[2021-08-10] MEDS ORDERED: diphenhydrAMINE 25 MG TAB (BENADRYL) PO PRN (23:15)
[2021-08-10] MEDS ORDERED: diphenhydrAMINE 50 MG/ML INJ (BENADRYL) IVP PRN (23:15)
[2021-08-10] MEDS ORDERED: NITROGLYCERIN 0.4 MG SL TABS BTL 25'S SL PRN (23:15)
[2021-08-10] MEDS ORDERED: ACETAMINOPHEN 325 MG TABLET PO PRN (23:15)
[2021-08-10] MEDS ORDERED: CALCIUM CARBONATE 500 MG (TUMS) TAB.CHEW PO PRN (23:15)
[2021-08-10] MEDS ORDERED: MELATONIN 3 MG TABLET PO PRN (23:15)
[2021-08-10] MEDS ORDERED: ONDANSETRON 4 MG (ZOFRAN) ORAL DISSOLVE TAB PO PRN (23:15)
[2021-08-10] MEDS ORDERED: PATIENT MAY USE OWN MEDS, ALL PO SCH (23:15)
[2021-08-10] MEDS ORDERED: LACTULOSE SYRUP 10GM/15ML (ENULOSE) 30ML UDC PO PRN (23:15)
[2021-08-10] MEDS ORDERED: MILK OF MAGNESIA 400 MG/5 ML 30 ML UDC PO PRN (23:15)
[2021-08-10] MEDS ORDERED: morphine INJ 4 MG/ML 1 ML (VIAL/SYRINGE) IV PRN (23:15)
[2021-08-10] MEDS ORDERED: ALPRAZolam 0.25 MG (XANAX) TAB PO PRN (23:15)
[2021-08-10] MEDS ORDERED: ONDANSETRON 4 MG/2 ML (SDV) Z0FRAN IV PRN (23:15)
[2021-08-10] MEDS ORDERED: ANTACID SUSP 30 ML UDC (MYLANTA) PO PRN (23:15)
[2021-08-10] MEDS ORDERED: BISACODYL 10 MG SUPP (DULCOLAX) PR PRN (23:15)
[2021-08-10] MEDS ORDERED: polyethylene glycoL POWDER 17 GM (MIRALAX) PACK PO PRN (23:15)
[2021-08-10] MEDS ORDERED: RT-ALBUTEROL SULF 2.5 MG/3 ML PRE-MIX VIAL INH PRN (23:30)
[2021-08-11] VITALS (8 sets, daily range): BP systolic 113–167; BP diastolic 68–111
[2021-08-11 06:37] LABS: BASOPHILS % (AUTO) 1 % (0-10); EOSINOPHILS # (AUTO) 0.3 10^3/uL (0.0-0.3); EOSINOPHILS % (AUTO) 5 % (0-10); HEMATOCRIT 38 % (40-54); HEMOGLOBIN 12.6 g/dL (13.3-17.7); LYMPHOCYTES # (AUTO) 1.5 10^3/uL (1.0-4.0); LYMPHOCYTES % (AUTO) 27 % (12-44); MEAN CORPUSCULAR HEMOGLOBIN 33 pg (25-34); MEAN CORPUSCULAR HGB CONC 33 g/dL (32-36); MEAN CORPUSCULAR VOLUME 101 fL (80-99); MEAN PLATELET VOLUME 11.1 fL (9.0-12.2); MONOCYTES # (AUTO) 0.6 10^3/uL (0.0-1.0); MONOCYTES % (AUTO) 10 % (0-12); NEUTROPHILS # (AUTO) 3.1 10^3/uL (1.8-7.8); NEUTROPHILS % (AUTO) 57 % (42-75); PLATELET COUNT 167 10^3/uL (130-400); WHITE BLOOD COUNT 5.4 10^3/uL (4.3-11.0)
[2021-08-11 06:41] LABS: ALBUMIN 3.6 GM/DL (3.2-4.5); POTASSIUM 3.5 MMOL/L (3.6-5.0)
[2021-08-11 06:44] LABS: TOTAL PROTEIN 7.2 GM/DL (6.4-8.2)
[2021-08-11 06:45] LABS: BILIRUBIN,TOTAL 0.7 MG/DL (0.1-1.0)
[2021-08-11 06:47] LABS: CREATININE SERUM 1.13 MG/DL (0.60-1.30)
--- NOTE | 2021-08-11 08:05 | Consultation-Cardiology ---
HPI-Cardiology Cardiology Consultation: Date of Consultation 08/11/21 Time Seen by a Provider: 10:30 Date of Admission 08-10-21 Attending Physician No,Local Physician Admitting Physician Admitting Physician: Jessika Potts DO Attending Physician: Monserrat Carrasquillo MD Consulting Physician Anna Rivera MD Primary Operations Assistant: Dr. Farrar HPI: Chief Complaint: Dizziness Mr. Ashton is a 76 yr old male admitted to 412 from the ED with c/o dizziness which has been present over the course of the last several days. Reports dizziness when changing positions or moving head. No report of syncope or near syncope. No c/o CP, palpitations. He reports chronic SOB which is unchanged in the recent past. He reports dizziness has resolved. He reports he does not know any of his medications as they are managed by his signif other, who is not present. No c/o LE swelling. No c/o n/v/d. No c/o fever or chills. Review of Systems-Cardiology Review of Systems Constitutional: No chills, No fever, No malaise Eyes: No vision change Ears/Nose/Throat: No epistaxis, No recent hearing loss Respiratory: As described under HPI Cardiovascular: As described under HPI Gastrointestinal: No constipation, No diarrhea, No nausea, No vomiting Genitourinary: No dysuria, No hematuria Musculoskeletal: no symptoms reported Skin: No rash on exposed areas, No ulcerations on exposed areas Psychiatric/Neurological: No anxiety, No depression, No seizure, No focal weakness, No syncope Hematologic: No bleeding abnormalities All Other Systems Reviewed Negative Unless Noted: Yes LLJ-Lmrqbx-Zhfwod Hx Patient Social History Smoking Status: Former Smoker Have you traveled recently?: No Alcohol Use?: No Pt feels they are or have been: No Immunizations Up To Date Date of Influenza Vaccine: Jan 02, 2021 Past Medical History PMH As described under Assessment. Family Medical History Family Medical History: His father had arrhythmogenic right ventricular dysplasia. Allergies and Home Medications Allergies Uncoded Allergies: UNKNOWN CHOLESTEROL MED. (Allergy, Unknown, UNKNOWN STATES CAN'T REMEMBER MEDIATION NOR SIDE EFFECT, 07/10/21) Patient Home Medication List Acetaminophen (Tylenol Extra Strength) 500 Mg Tablet, 1,000 MG PO Q8H PRN for PAIN-MILD (1-4) OR TEMPATURE, (Reported) Entered as Reported by: GIO CARLOS on 05/19/21 154 Albuterol Sulfate (Proair Hfa) 1 Puff Puff, 2 PUFF IH QID PRN for SHORTNESS OF BREATH, (Reported) Entered as Reported by: GIO CARLOS on 05/19/21 154 Allopurinol (Allopurinol) 100 Mg Tablet, 100 MG PO DAILY, (Reported) Entered as Reported by: GIO CARLOS on 05/19/21 154 Amiodarone HCl (Amiodarone HCl) 200 Mg Tablet, 200 MG PO DAILY Prescribed by: JESSIKA POTTS on 06/15/21635 Antiox #11/Om3/Dha/Epa/Lut/Salvador (Eye Health Adult 50+ Softgel) 1 Each Capsule, 1 EACH PO DAILY, (Reported) Entered as Reported by: GIO CARLOS on 05/19/21 154 Ascorbate Calcium (Vitamin C) 500 Mg Tablet, 500 MG PO DAILY, (Reported) Entered as Reported by: GIO CARLOS on 05/19/21 154 Aspirin (Aspirin) 81 Mg Tab.chew, 81 MG PO DAILY, (Reported) Entered as Reported by: GIO CARLOS on 06/05/21 1217 Atorvastatin Calcium (Atorvastatin Calcium) 80 Mg Tablet, 40 MG PO HS, (Reported) Entered as Reported by: GIO CARLOS on 06/09/21 1435 Cefdinir (Cefdinir) 300 Mg Capsule, 300 MG PO BID Prescribed by: WYATT VALDEZ on 07/16/21 0046 Cyanocobalamin (Vitamin B-12) (Vitamin B-12) 1,000 Mcg Tablet, 1,000 MCG PO DAILY, (Reported) Entered as Reported by: GIO CARLOS on 05/19/21 154 Cyclobenzaprine HCl (Cyclobenzaprine HCl) 10 Mg Tablet, 10 MG PO HS PRN for MUSCLE SPASMS, (Reported) Entered as Reported by: GIO CARLOS on 05/19/21 154 Ezetimibe (Ezetimibe) 10 Mg Tablet, 10 MG PO HS Prescribed by: JESSIKA POTTS on 06/15/21635 Finasteride (Finasteride) 5 Mg Tablet, 5 MG PO DAILY Prescribed by: JESSIKA POTTS on 06/15/21635 Metoprolol Tartrate (Metoprolol Tartrate) 25 Mg Tablet, 50 MG PO BID Prescribed by: JESSIKA POTTS on 06/15/21635 Multivitamin with Minerals (Multivitamins with Minerals) 1 Each Tablet, 1 EACH PO DAILY, (Reported) Entered as Reported by: GIO CARLOS on 05/19/21 1549 Tramadol HCl (Tramadol HCl) 50 Mg Tablet, 50 MG PO TID PRN for PAIN-MODERATE (5- 7) Prescribed by: JESSIKA POTTS on 06/15/21635 Physical Exam-Cardiology Physical Exam Vital Signs/I&O 08/11/21 08/11/21 08/11/21 08/11/21 00:04 00:26 00:42 04:12 Temp 36.7 36.0 Pulse 76 75 60 Resp 18 18 B/P (MAP) 167/111 (129) 113/72 (86) 138/82 (100) Pulse Ox 93 98 O2 Delivery Nasal Cannula Nasal Cannula O2 Flow Rate 2.00 2.00 08/11/21 08/11/21 08/11/21 07:00 08:00 08:00 Temp 36.1 Pulse 56 53 Resp 18 B/P (MAP) 158/88 (111) Pulse Ox 97 O2 Delivery Room Air Nasal Cannula O2 Flow Rate 2.00 08/10/21 23:59 Intake Total 1000 ml Balance 1000 ml Capillary Refill : Less Than 3 Seconds Constitutional: AAO x 3, well-developed, well-nourished HEENT: PERRL, hearing is well preserved, oral hygience is good Neck: No carotid bruit; carotid pulses are 2 + bilaterally Respiratory: No accessory muscle use, No respiratory distress; chest expansion is symmetric, chest is bilaterally symmetric, lungs clear to auscultation Cardiovascular: regular rate-rhythm; No JVD; S1 and S2 Gastrointestinal: No tender; soft, round, audible bowel sounds Extremities: no lower extremity edema bilateral Neurologic/Psychiatric: grossly intact Skin: No rash on exposed areas, No ulcerations on exposed areas Data Review Labs Laboratory Tests 08/10/21 17:00: White Blood Count 6.5, Red Blood Count 4.09L, Hemoglobin 13.9, Hematocrit 41, Mean Corpuscular Volume 100H, Mean Corpuscular Hemoglobin 34, Mean Corpuscular Hemoglobin Concent 34, Red Cell Distribution Width 13.6, Platelet Count 164, Mean Platelet Volume 9.8, Immature Granulocyte % (Auto) 0, Neutrophils (%) (Auto) 63, Lymphocytes (%) (Auto) 24, Monocytes (%) (Auto) 9, Eosinophils (%) (Auto) 3, Basophils (%) (Auto) 1, Neutrophils # (Auto) 4.1, Lymphocytes # (Auto) 1.6, Monocytes # (Auto) 0.6, Eosinophils # (Auto) 0.2, Basophils # (Auto) 0.0, Immature Granulocyte # (Auto) 0.0, D-Dimer 1.29H, Sodium Level 140, Potassium Level 3.7, Chloride Level 104, Carbon Dioxide Level 24, Anion Gap 12, Blood Urea Nitrogen 31H, Creatinine 1.41H, Estimat Glomerular Filtration Rate 52, BUN/Creatinine Ratio 22, Glucose Level 228H, Calcium Level 9.3, Corrected Calcium 9.4, Magnesium Level 2.1, Total Bilirubin 0.5, Aspartate Amino Transf (AST/SGOT) 30, Alanine Aminotransferase (ALT/SGPT) 31, Alkaline Phosphatase 106, Troponin I 0.187H, B-Type Natriuretic Peptide 289.4H, Total Protein 7.9, Albumin 3.9 08/10/21 17:56: Urine Color YELLOW, Urine Clarity CLEAR, Urine pH 5.5, Urine Specific [place] 1.015L, Urine Protein NEGATIVE, Urine Glucose (UA) NEGATIVE, Urine Ketones NEGATIVE, Urine Nitrite NEGATIVE, Urine Bilirubin NEGATIVE, Urine Urobilinogen 0.2, Urine Leukocyte Esterase NEGATIVE, Urine RBC (Auto) NEGATIVE, Urine RBC NONE, Urine WBC 0-2, Urine Squamous Epithelial Cells 0-2, Urine Renal Epithelial Cells NONE, Urine Crystals NONE, Urine Bacteria NEGATIVE, Urine Casts NONE, Urine Mucus NEGATIVE, Urine Culture Indicated NO 08/10/21 18:55: Influenza Type A (RT-PCR) Not Detected, Influenza Type B (RT-PCR) Not Detected, SARS-CoV-2 RNA (RT-PCR) Not Detected 08/10/21 19:50: Troponin I 0.171H 08/11/21 05:16: White Blood Count 5.4, Red Blood Count 3.78L, Hemoglobin 12.6L, Hematocrit 38L, Mean Corpuscular Volume 101H, Mean Corpuscular Hemoglobin 33, Mean Corpuscular Hemoglobin Concent 33, Red Cell Distribution Width 13.7, Platelet Count 167, Mean Platelet Volume 11.1, Immature Granulocyte % (Auto) 0, Neutrophils (%) (Auto) 57, Lymphocytes (%) (Auto) 27, Monocytes (%) (Auto) 10, Eosinophils (%) (Auto) 5, Basophils (%) (Auto) 1, Neutrophils # (Auto) 3.1, Lymphocytes # (Auto) 1.5, Monocytes # (Auto) 0.6, Eosinophils # (Auto) 0.3, Basophils # (Auto) 0.0, Immature Granulocyte # (Auto) 0.0, Sodium Level 142, Potassium Level 3.5L, Chloride Level 108H, Carbon Dioxide Level 23, Anion Gap 11, Blood Urea Nitrogen 26H, Creatinine 1.13, Estimat Glomerular Filtration Rate 68, BUN/Creatinine Ratio 23, Glucose Level 113H, Calcium Level 9.0, Corrected Calcium 9.3, Total Bilirubin 0.7, Aspartate Amino Transf (AST/SGOT) 27, Alanine Aminotransferase (ALT/SGPT) 24, Alkaline Phosphatase 102, Troponin I 0.189H, Total Protein 7.2, Albumin 3.6, Triglycerides Level 40, Cholesterol Level 109, LDL Cholesterol Direct 49, VLDL Cholesterol 8, HDL Cholesterol 46 08/11/21 05:32: Glucometer 108 Radiology NAME: VIPIN ASHTON [facility] REC#: [id number] PT STATUS: REG ER : 1945 PHYSICIAN: DENA LINDA MD ADMIT DATE: 08/10/21/ER Signed Date of Exam:08/10/21 CT ANGIO CHEST W PROCEDURE: CT angiography of the chest with contrast. TECHNIQUE: Multiple contiguous axial images were obtained through the chest after uneventful bolus administration of intravenous contrast. 3D reconstructed CTA MIP acquisitions were also performed. Auto Exposure Controls were utilized during the CT exam to meet ALARA standards for radiation dose reduction. INDICATION: Hypertension and dizziness. FINDINGS: The lungs are clear. There is minimal interstitial edema in the dependent portions of the lung bases. There is cardiomegaly. There is calcific atherosclerosis of the aorta but no aneurysm or dissection. There are no appreciable pulmonary emboli. The right ventricle is dilated and there is reflux of contrast into the hepatic veins suggesting right heart failure. This may be due to pulmonary valve stenosis. IMPRESSION: Probable right pulmonary valvular stenosis causing elevated right heart pressures. There are no appreciable pulmonary emboli. Dictated by: Dictated on workstation # [id number] Dict: 08/10/212133 Trans: 08/10/212148 [facility] [id number] Interpreted by: IRMA MCDONNELL MD Electronically signed by: IRMA MCDONNELL MD 08/10/212148 NAME: VIPIN ASHTON [facility] REC#: [id number] PT STATUS: ADM Shan : 1945 PHYSICIAN: JESSIKA POTTS DO ADMIT DATE: 08/10/21 Draft Date of Exam:08/11/21 US CAROTID MARK COMPLETE [id number] Clinical indications: Patient with dizziness. Comparison: None Exam: Real-time ultrasound carotid Doppler duplex imaging is performed bilaterally with multiple real-time grayscale images obtained in various projections. Additional spectral analysis and color Doppler duple images were also obtained. Peak systolic velocity, ICA/CCA peak systolic ratio, spectral analysis, and vascular morphology are studied. Findings: ARTERY VELOCITY Right Left CCA 0.56 m/s 0.57 m/s ICA 0.78 m/s 0.58 m/s ECA 0.70 m/s 0.69 m/s ICA/CCA 1.4 1.0 VERT.ART Antegrade Antegrade There is atherosclerotic disease involving the bilateral carotid arteries with no significant grayscale stenosis. Impression: There is no grayscale or Doppler evidence of significant vascular stenosis. Dictated on workstation # [id number] Dict: 08/11/21809 Trans: 08/11/21 08 [facility] [id number] Interpreted by: PIPER GOMEZ MD Electronically signed by: ECG Impression ECG Initial ECG Rhythm: Normal Sinus A/P-Cardiology Assessment/Admission Diagnosis Dizziness of undetermined etiology - no evidence of signif carotid dz per u/s of 08-11-21 H/O Ventricular tachycardia -H/O complex ventricular tachycardia ablation done at [facility] - amiodarone tx - AICD in place Cardiac cath of 05-19-[address] Farrar showed Angiographically normal-appearing coronary arteries in a right dominant system. Echocardiogram of 05-19-[address] Farrar showed LVEF 50-55%. Mild AoV sclerosis. Trivial pericardial effusion. Mod TR. RV cavity size is severely increased. Systolic function severely reduced. - Referred to [facility] Heart Failure Team per Dr. Farrar Hypertension HLD Frequent UTI's Discussion and Recomendations Dizziness of undetermined etiology - no further episodes - possible othostatic hypotension r/t medications - however, he does not know what medications he is taking and he is not cooperating with ortho v/s - once medications are determined will evalute to determine what can be reduced Awaiting VQ study per medical services Monitor lab closely Replace electrolytes as indicated Further recs will be based on his hospital course Clinical Quality Measures AMI/AHF: ASA po Prior to arrival: SHARRON Piña Aug 11, 2021 08:05
--- NOTE | 2021-08-11 08:20 | Diagnostic Imaging Report ---
Clinical indications: Patient with dizziness. Comparison: None Exam: Real-time ultrasound carotid Doppler duplex imaging is performed bilaterally with multiple real-time grayscale images obtained in various projections. Additional spectral analysis and color Doppler duple images were also obtained. Peak systolic velocity, ICA/CCA peak systolic ratio, spectral analysis, and vascular morphology are studied. Findings: ARTERY VELOCITY Right Left CCA 0.56 m/s 0.57 m/s ICA 0.78 m/s 0.58 m/s ECA 0.70 m/s 0.69 m/s ICA/CCA 1.4 1.0 VERT.ART Antegrade Antegrade There is atherosclerotic disease involving the bilateral carotid arteries with no significant grayscale stenosis. Impression: There is no grayscale or Doppler evidence of significant vascular stenosis. Dictated by: Dictated on workstation # [id number]
[2021-08-11] MEDS: SENNOSIDES 8.6 MG (SENOKOT) TAB PO SCH ×2 (08:35→20:24)
[2021-08-11] MEDS: ASPIRIN E.C. 81 MG (ECOTRIN) TAB PO SCH ×2 (08:35→11:10)
[2021-08-11] MEDS: DOCUSATE SODIUM 100 MG (COLACE) CAP PO SCH ×2 (08:36→20:24)
[2021-08-11] MEDS ORDERED: ENOXAPARIN 100 MG/1 ML (LOVENOX) SYR SC SCH (09:00)
--- NOTE | 2021-08-11 12:03 | History & Physical-Hospitalist ---
History of Present Illness HPI/Chief Complaint Truman Thomas is a 76 year old male with PMH HTN, HLD, history of VTach, BPH, who presented with dizziness. He also reports nausea and vomiting. Upon my exam his symptoms are resolved. He denies chest pain and palpitations. He denies shortness of breath and cough. He denies fevers and chills. He has been compliant with his medications. He has been eating and drinking normally. Source: patient Exam Limitations: no limitations Date Seen 08/11/21 Time Seen by a Provider: 10:35 Attending Physician No,Local Physician PCP Admitting Physician: Jessika Maciel DO Attending Physician: Mekhi Carrasquillo MD Referring Physician Date of Admission Aug 10, 2021 at 22:51 Home Medications & Allergies Home Medications Reviewed patient Home Medication Reconciliation performed by pharmacy medication reconciliations bicycle technician and/or nursing. Patients Allergies have been reviewed. Allergies Allergies Uncoded Allergies UNKNOWN CHOLESTEROL MED. ( Allergy, Unknown, UNKNOWN STATES CAN'T REMEMBER MEDIATION NOR SIDE EFFECT, 07/10/21) Past Mmhidij-Viavrw-Gqpimy Hx Patient Social History Tobacco Use?: No Smoking Status: Former Smoker Smokeless Tobacco Frequency: Never a User Use of E-Cig and/or Vaping dev: No Use of E-Cig and/or Vaping Art: Never a User Substance use?: No Alcohol Use?: No Pt feels they are or have been: No Immunizations Up To Date Date of Influenza Vaccine: Jan 02, 2021 First/Initial COVID19 Vaccinat: 2020 Second COVID19 Vaccination Eugenio: 2020 Tetanus Booster (TDap): Less Than 5 Years Hepatitis A: No Hepatitis B: No Current Status Advance Directives: Unable to obtain Communicates: Verbally Primary Language: Serbian Preferred Spoken Language: Serbian Is interpretation needed?: No Sensory deficits: Vision impairment Implanted or Applied Medical D: Pacemaker Past Medical History Surgeries: Defibrillator, Orthopedic, Pacemaker, Rectal Cardiomyopathy, Chronic Edema/Swelling, High Cholesterol, Irregular Heartbeat Cerebral Palsy Benign Prostatic Hyperpl, Kidney Infection, Prostate Problems, Bladder Infection Chronic Constipation Gout Diabetes, Non-Insulin dep Blood Disorders: No Family Medical History Reviewed Nursing Family Hx No Pertinent Family Hx Review of Systems Constitutional: dizziness EENTM: no symptoms reported Respiratory: no symptoms reported Cardiovascular: no symptoms reported Gastrointestinal: nausea, vomiting Genitourinary: no symptoms reported Musculoskeletal: no symptoms reported Skin: no symptoms reported Psychiatric/Neurological: No Symptoms Reported Physical Exam Physical Exam Vital Signs Vital Signs - First Documented 08/10/21 08/10/21 16:33 22:53 Temp 36.1 Pulse 67 Resp 15 B/P (MAP) 126/89 (101) Pulse Ox 97 O2 Delivery Room Air O2 Flow Rate 2.00 Capillary Refill : Less Than 3 Seconds Height, Weight, BMI Height: 6'1.00" Weight: 235lbs. oz. 106.967004aj; 31.02 BMI Method:Stated General Appearance: No Apparent Distress, WD/WN HEENT: PERRL/EOMI, Pharynx Normal Neck: Normal Inspection, Supple Respiratory: Lungs Clear, Normal Breath Sounds, No Respiratory Distress Cardiovascular: Regular Rate, Rhythm, No Edema, No Murmur Gastrointestinal: Normal Bowel Sounds, Non Tender, Soft Extremity: Normal Inspection, Non Tender, No Pedal Edema Neurologic/Psychiatric: Alert, Oriented x3, No Motor/Sensory Deficits, Normal Mood/Affect Skin: Normal Color, Warm/Dry Results Results/Procedures Labs Laboratory Tests 08/10/21 17:00 08/11/21 05:16 Patient resulted labs reviewed. Imaging: Reviewed Imaging Report Assessment/Plan Admission Diagnosis Dizziness Admission Status: Observation Assessment and Plan Orthostatic hypotension Acute kidney injury Dehydration Dizziness Elevated troponin Creatinine elevated from baseline, now improved s/p IV fluids Cardiology consulted No plans for intervention, continue medical management Elevated d-dimer Wells score 0, low risk for PE VQ scan negative HTN HLD BPH VTach Continue home meds Obesity Clinically significant, no acute management needs DVT prophylaxis: Lovenox Diagnosis/Problems Diagnosis/Problems (1) Orthostatic hypotension Status: Acute (2) NEVAEH (acute kidney injury) Status: Acute (3) Dizziness Status: Acute (4) Elevated troponin Status: Acute Clinical Quality Measures AMI/AHF: ASA po Prior to arrival: MEKHI Alexander MD Aug 11, 2021 12:03
--- NOTE | 2021-08-11 12:47 | Diagnostic Imaging Report ---
INDICATION: Dizziness and hypoxia. TECHNIQUE: Patient was administered 5.4 mCi technetium 99m MAA intravenously and imaging over the chest was performed with multiple obliquities. FINDINGS: There is homogeneous perfusion of both lungs. No pleural-based perfusion defects are seen. IMPRESSION: Normal perfusion lung scan. Dictated by: Dictated on workstation # [id number]
[2021-08-11] MEDS ORDERED: CHOL10007 PO (15:41)
[2021-08-11] MEDS ORDERED: TRM50T PO (15:41)
[2021-08-11] MEDS ORDERED: AMIO200T65 PO (15:41)
[2021-08-11] MEDS ORDERED: [UNRECOGNIZED DRUG - CODE] PO (15:41)
[2021-08-11] MEDS ORDERED: METO50TA15 PO (15:41)
[2021-08-11] MEDS ORDERED: POLY17PO6 PO (15:41)
[2021-08-11] MEDS ORDERED: FINA5TAB6 PO (15:41)
[2021-08-11] MEDS ORDERED: TMSL.4C PO (15:41)
[2021-08-11] MEDS ORDERED: ASPI-1238 PO (15:41)
[2021-08-11] MEDS ORDERED: EZET10TA49 PO (15:41)
[2021-08-11] MEDS ORDERED: FURO40TA4 PO (15:49)
[2021-08-11] MEDS ORDERED: ENOXAPARIN 40 MG/0.4 ML (LOVENOX) SYR SQ SCH (16:30)
--- NOTE | 2021-08-11 18:56 | Consultation-Cardiology ---
HPI-Cardiology Cardiology Consultation: Date of Consultation 08/11/21 Time Seen by a Provider: 18:30 Date of Admission Attending Physician No,Local Physician Admitting Physician Admitting Physician: Jessika Potts DO Attending Physician: Cary Long MD Consulting Physician LEXI STEVENSON MD, FACP, FACC HPI: Chief Complaint: Dizziness Mr. Thomas is a 76 yr old male admitted to 412 from the ED with c/o dizziness which has been present over the course of the last several days. Reports dizziness when changing positions or moving head. No report of syncope or near syncope. No c/o CP, palpitations. He reports chronic SOB which is unchanged in the recent past. He reports dizziness has resolved. He reports he does not know any of his medications as they are managed by his signif other, who is not present. No c/o LE swelling. No c/o n/v/d. No c/o fever or chills. Review of Systems-Cardiology Review of Systems Constitutional: No chills, No fever, No malaise Eyes: No vision change Ears/Nose/Throat: No epistaxis, No recent hearing loss Respiratory: As described under HPI Cardiovascular: As described under HPI Gastrointestinal: No constipation, No diarrhea, No nausea, No vomiting Genitourinary: No dysuria, No hematuria Musculoskeletal: no symptoms reported Skin: No rash on exposed areas, No ulcerations on exposed areas Psychiatric/Neurological: No anxiety, No depression, No seizure, No focal weakness, No syncope Hematologic: No bleeding abnormalities All Other Systems Reviewed Negative Unless Noted: Yes [id number]-[id number]-[id number] Hx Patient Social History Smoking Status: Former Smoker Have you traveled recently?: No Alcohol Use?: No Pt feels they are or have been: No Immunizations Up To Date Date of Influenza Vaccine: Jan 02, 2021 Past Medical History PMH As described under Assessment. Family Medical History Family Medical History: His father had arrhythmogenic right ventricular dysplasia. Allergies and Home Medications Allergies Uncoded Allergies: UNKNOWN CHOLESTEROL MED. (Allergy, Unknown, UNKNOWN STATES CAN'T REMEMBER MEDIATION NOR SIDE EFFECT, 07/10/21) Patient Home Medication List Home Medication List Reviewed: Yes Acetaminophen (Tylenol Extra Strength) 500 Mg Tablet, 1,000 MG PO Q8H PRN for PAIN-MILD (1-4) OR TEMPATURE, (Reported) Entered as Reported by: GIO CARLOS on 05/19/211547 Last Action: Held Albuterol Sulfate (Proair Hfa) 1 Puff Puff, 2 PUFF IH QID PRN for SHORTNESS OF BREATH, (Reported) Entered as Reported by: GIO CARLOS on 05/19/211547 Last Action: Held Allopurinol (Allopurinol) 100 Mg Tablet, 100 MG PO DAILY, (Reported) Entered as Reported by: GIO CARLOS on 05/19/211547 Last Action: Continued Amiodarone HCl (Amiodarone HCl) 200 Mg Tablet, 200 MG PO DAILY, (Reported) Entered as Reported by: GIO CARLOS on 08/11/211540 Last Action: Continued Antiox #11/Om3/Dha/Epa/Lut/Salvador (Eye Health Adult 50+ Softgel) 1 Each Capsule, 1 EACH PO BID, (Reported) Entered as Reported by: GIO CARLOS on 05/19/211548 Last Action: Held Ascorbate Calcium (Vitamin C) 500 Mg Tablet, 500 MG PO DAILY, (Reported) Entered as Reported by: GIO CARLOS on 05/19/211547 Last Action: Held Aspirin (Aspirin EC) 81 Mg Tablet.dr, 81 MG PO DAILY, (Reported) Entered as Reported by: GIO CARLOS on 08/11/211540 Last Action: Reviewed Atorvastatin Calcium (Atorvastatin Calcium) 80 Mg Tablet, 40 MG PO HS, (Reported) Entered as Reported by: GIO CARLOS on 06/09/21 1435 Last Action: Continued Cholecalciferol (Vitamin D3) (Vitamin D3) 25 Mcg (1000 Unit) Capsule, 25 MCG PO DAILY, (Reported) Entered as Reported by: GIO CARLOS on 08/11/211540 Last Action: Held Cyanocobalamin (Vitamin B-12) (Vitamin B-12) 1,000 Mcg Tablet, 1,000 MCG PO DAILY, (Reported) Entered as Reported by: GIO CARLOS on 05/19/211548 Last Action: Held Cyclobenzaprine HCl (Cyclobenzaprine HCl) 10 Mg Tablet, 10 MG PO HS PRN for MUSCLE SPASMS, (Reported) Entered as Reported by: GIO CARLOS on 05/19/211548 Last Action: Held Ezetimibe (Ezetimibe) 10 Mg Tablet, 10 MG PO HS, (Reported) Entered as Reported by: GIO CARLOS on 08/11/211540 Last Action: Continued Finasteride (Finasteride) 5 Mg Tablet, 5 MG PO DAILY, (Reported) Entered as Reported by: GIO CARLOS on 08/11/211540 Last Action: Continued Furosemide (Furosemide) 40 Mg Tablet, 40 MG PO DAILY, (Reported) Entered as Reported by: GIO CARLOS on 08/11/211548 Last Action: Held Metoprolol Tartrate (Metoprolol Tartrate) 50 Mg Tablet, 25 MG PO BID, (Reported) Entered as Reported by: GIO CARLOS on 08/11/211540 Last Action: Continued Multivitamin with Minerals (Multivitamins with Minerals) 1 Each Tablet, 1 EACH PO DAILY, (Reported) Entered as Reported by: GIO CARLOS on 05/19/211548 Last Action: Held Polyethylene Glycol 3350 (Miralax) 17 Gram Powd.pack, 17 GM PO DAILY PRN for CONSTIPATION-2ND LINE, (Reported) Entered as Reported by: GIO CARLOS on 08/11/211540 Last Action: Held Psyllium Husk (with Sugar) (Fiber Powder) 3 Gram/12 Gram Powder, 368 GM PO BID PRN for CONSTIPATION, (Reported) Entered as Reported by: GIO CARLOS on 08/11/211540 Last Action: Held Tamsulosin HCl (Flomax) 0.4 Mg Cap, 0.4 MG PO HS, (Reported) Entered as Reported by: GIO CARLOS on 08/11/211540 Last Action: Continued Tramadol HCl (Tramadol HCl) 50 Mg Tablet, 50 MG PO TID PRN for PAIN-MODERATE (5- 7), (Reported) Entered as Reported by: GIO CARLOS on 08/11/211540 Last Action: Held Discontinued Medications Amiodarone HCl (Amiodarone HCl) 200 Mg Tablet, 200 MG PO DAILY Discontinued Reason: Duplicate Order Prescribed by: JESSIKA POTTS on 06/15/21 0636 Last Action: Discontinued Cefdinir (Cefdinir) 300 Mg Capsule, 300 MG PO BID Discontinued Reason: Duplicate Order Prescribed by: WYATT VALDEZ on 07/16/21 0046 Last Action: Discontinued Ezetimibe (Ezetimibe) 10 Mg Tablet, 10 MG PO HS Discontinued Reason: No Longer Taking Prescribed by: JESSIKA POTTS on 06/15/21635 Last Action: Discontinued Finasteride (Finasteride) 5 Mg Tablet, 5 MG PO DAILY Discontinued Reason: No Longer Taking Prescribed by: JESSIKA POTTS on 06/15/21635 Last Action: Discontinued Metoprolol Tartrate (Metoprolol Tartrate) 25 Mg Tablet, 50 MG PO BID Discontinued Reason: Duplicate Order Prescribed by: JESSIKA POTTS on 06/15/21635 Last Action: Discontinued Tramadol HCl (Tramadol HCl) 50 Mg Tablet, 50 MG PO TID PRN for PAIN-MODERATE (5- 7) Discontinued Reason: Duplicate Order Prescribed by: JESSIKA POTTS on 06/15/21635 Last Action: Discontinued Physical Exam-Cardiology Physical Exam Vital Signs/I&O 08/11/21 08/11/21 08/11/21 08/11/21 07:00 08:00 08:00 12:00 Temp 36.1 36.0 Pulse 56 53 56 Resp 18 18 B/P (MAP) 158/88 (111) 141/88 (105) Pulse Ox 97 98 O2 Delivery Room Air Nasal Cannula Nasal Cannula O2 Flow Rate 2.00 2.00 08/11/21 08/11/21 12:49 15:29 Temp 36.0 Pulse 71 64 Resp 16 B/P (MAP) 122/74 (90) Pulse Ox 94 O2 Delivery Nasal Cannula O2 Flow Rate 2.00 08/11/21 00:00 Intake Total 1000 ml Balance 1000 ml Capillary Refill : Less Than 3 Seconds Constitutional: AAO x 3, well-developed, well-nourished HEENT: PERRL, hearing is well preserved, oral hygience is good Neck: No carotid bruit; carotid pulses are 2 + bilaterally Respiratory: No accessory muscle use, No respiratory distress; chest expansion is symmetric, chest is bilaterally symmetric, lungs clear to auscultation Cardiovascular: regular rate-rhythm; No JVD; S1 and S2 Gastrointestinal: No tender; soft, round, audible bowel sounds Extremities: no lower extremity edema bilateral Neurologic/Psychiatric: grossly intact Skin: No rash on exposed areas, No ulcerations on exposed areas Data Review Labs Laboratory Tests 08/10/21 18:55: Influenza Type A (RT-PCR) Not Detected, Influenza Type B (RT-PCR) Not Detected, SARS-CoV-2 RNA (RT-PCR) Not Detected 08/10/21 19:50: Troponin I 0.171H 08/11/21 05:16: Troponin I 0.189H, White Blood Count 5.4, Red Blood Count 3.78L, Hemoglobin 12.6L, Hematocrit 38L, Mean Corpuscular Volume 101H, Mean Corpuscular Hemoglobin 33, Mean Corpuscular Hemoglobin Concent 33, Red Cell Distribution Width 13.7, Platelet Count 167, Mean Platelet Volume 11.1, Immature Granulocyte % (Auto) 0, Neutrophils (%) (Auto) 57, Lymphocytes (%) (Auto) 27, Monocytes (%) (Auto) 10, Eosinophils (%) (Auto) 5, Basophils (%) (Auto) 1, Neutrophils # (Auto) 3.1, Lymphocytes # (Auto) 1.5, Monocytes # (Auto) 0.6, Eosinophils # (Auto) 0.3, Basophils # (Auto) 0.0, Immature Granulocyte # (Auto) 0.0, Sodium Level 142, Potassium Level 3.5L, Chloride Level 108H, Carbon Dioxide Level 23, Anion Gap 11, Blood Urea Nitrogen 26H, Creatinine 1.13, Estimat Glomerular Filtration Rate 68, BUN/Creatinine Ratio 23, Glucose Level 113H, Calcium Level 9.0, Corrected Calcium 9.3, Total Bilirubin 0.7, Aspartate Amino Transf (AST/SGOT) 27, Alanine Aminotransferase (ALT/SGPT) 24, Alkaline Phosphatase 102, Total Protein 7.2, Albumin 3.6, Triglycerides Level 40, Cholesterol Level 109, LDL Cholesterol Direct 49, VLDL Cholesterol 8, HDL Cholesterol 46 08/11/21 05:32: Glucometer 108 A/P-Cardiology Assessment/Admission Diagnosis Dizziness of undetermined etiology - no evidence of signif carotid dz per u/s of 08-11-21 Transient hypoxia at time of presentation on 08/10/21 Mild troponin elevation, type 2 PR due to hypoxia Cardiac cath of 05-19-[address] 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 Farrar showed LVEF 50-55%. Mild AoV sclerosis. Trivial pericardial effusion. Mod TR. RV cavity size is severely increased. Systolic function severely reduced. - Referred to [facility] Heart Failure Team per Dr. Farrar - Echo on 08-11-21: LVEF 50-55%, grade 1 diastolic dysfunction marked enlargement of RV, mild MR, mod TR, PASP 35-40 mmHg, no evidence of pulmonic stenosis Hypertension - controlled HLD Frequent UTI's Discussion and Recomendations Dizziness of undetermined etiology - no further episodes No evidence of PE Transient hypoxia does not appear to have a cardiac etiology (see w/u documented above) Cardiac status appears clinically stable Ok to d/c from cardiac standpoint. F/u with Dr Farrar next week Clinical Quality Measures AMI/AHF: ASA po Prior to arrival: LEXI Colon MD FACP [facility] Aug 11, 2021 18:56
[2021-08-11] MEDS: meTOprolol TARTRATE 50 MG (LOPRESSOR) TAB PO SCH (20:24)
[2021-08-11] MEDS ORDERED: eZETimibe 10 MG (ZETIA) TABLET PO SCH (21:00)
[2021-08-11] MEDS ORDERED: TAMSULOSIN 0.4 MG (FLOMAX) CAP PO SCH (21:00)
[2021-08-12 03:49] VITALS: BP 144/87
[2021-08-12 05:34] LABS: BASOPHILS # (AUTO) 0.1 10^3/uL (0.0-0.1); BASOPHILS % (AUTO) 1 % (0-10); EOSINOPHILS # (AUTO) 0.4 10^3/uL (0.0-0.3); EOSINOPHILS % (AUTO) 7 % (0-10); HEMATOCRIT 37 % (40-54); HEMOGLOBIN 12.4 g/dL (13.3-17.7); LYMPHOCYTES # (AUTO) 1.4 10^3/uL (1.0-4.0); LYMPHOCYTES % (AUTO) 27 % (12-44); MEAN CORPUSCULAR HEMOGLOBIN 34 pg (25-34); MEAN CORPUSCULAR HGB CONC 34 g/dL (32-36); MEAN CORPUSCULAR VOLUME 101 fL (80-99); MEAN PLATELET VOLUME 9.8 fL (9.0-12.2); MONOCYTES # (AUTO) 0.5 10^3/uL (0.0-1.0); MONOCYTES % (AUTO) 10 % (0-12); NEUTROPHILS # (AUTO) 2.7 10^3/uL (1.8-7.8); NEUTROPHILS % (AUTO) 55 % (42-75); PLATELET COUNT 145 10^3/uL (130-400)
[2021-08-12 05:55] LABS: ALBUMIN 3.4 GM/DL (3.2-4.5); POTASSIUM 3.7 MMOL/L (3.6-5.0)
[2021-08-12 05:57] LABS: TOTAL PROTEIN 6.8 GM/DL (6.4-8.2)
[2021-08-12 05:59] LABS: BILIRUBIN,TOTAL 0.9 MG/DL (0.1-1.0)
[2021-08-12 06:01] LABS: CREATININE SERUM 1.07 MG/DL (0.60-1.30)
[2021-08-12 07:23] VITALS: BP 136/77
[2021-08-12] MEDS: SENNOSIDES 8.6 MG (SENOKOT) TAB PO SCH (07:56)
[2021-08-12] MEDS: meTOprolol TARTRATE 50 MG (LOPRESSOR) TAB PO SCH (07:56)
[2021-08-12] MEDS: DOCUSATE SODIUM 100 MG (COLACE) CAP PO SCH (07:56)
[2021-08-12] MEDS: ASPIRIN E.C. 81 MG (ECOTRIN) TAB PO SCH (07:56)
[2021-08-12] MEDS ORDERED: ENOXAPARIN 40 MG/0.4 ML (LOVENOX) SYR SQ SCH (08:00)
[2021-08-12] MEDS ORDERED: ALLOPURINOL 100 MG (ZYLOPRIM) TAB PO SCH (09:00)
[2021-08-12] MEDS ORDERED: AMIODARONE 200 MG (CORDARONE) TAB PO SCH (09:00)
[2021-08-12] MEDS ORDERED: FINASTERIDE (PROSCAR) 5 MG TAB PO SCH (09:00)
[2021-08-12 11:03] VITALS: BP 156/87
--- NOTE | 2021-08-12 11:32 | Discharge Inst-Simple/Standard ---
Discharge Inst-Standard Patient Instructions/Follow Up Plan of Care/Instructions/FU: Please continue to take your medications as written. Please follow up with your primary care doctor to follow up this hospital stay and with Dr Farrar as already scheduled. Activity as Tolerated: Yes Discharge Diet: Cardiac Diet Return to The Hospital For: Chest pain, dizziness, shortness of breath, fever, weakness, if you feel you are getting worse. JONATHAN RAMOS MD Aug 12, 2021 11:31
--- NOTE | 2021-08-12 11:36 | Discharge Summary ---
Diagnosis/Chief Complaint Date of Admission Aug 10, 2021 at 22:51 Date of Discharge Discharge Date: Aug 12, 2021 Admission Diagnosis Dizziness Primary Care Pat Sheldon Discharge Diagnosis (1) Orthostatic hypotension Status: Acute (2) NEVAEH (acute kidney injury) Status: Acute (3) Dizziness Status: Acute (4) Elevated troponin Status: Acute Discharge Summary Procedures/Consulations Dr Rivera- Cardiology Discharge Physical Exam Allergies: Uncoded Allergies: UNKNOWN CHOLESTEROL MED. (Allergy, Unknown, UNKNOWN STATES CAN'T REMEMBER MEDIATION NOR SIDE EFFECT, 07/10/21) Vitals & I&Os Vital Signs Date Time Temp Pulse Resp B/P (MAP) Pulse Ox O2 Delivery O2 Flow Rate FiO2 08/12/21 11:03 36.2 59 16 156/87 (110) 92 Room Air 08/11/21 15:29 2.00 General Appearance: No Apparent Distress, WD/WN Respiratory: Lungs Clear, No Accessory Muscle Use, No Respiratory Distress Cardiovascular: Regular Rate, Rhythm Neurologic/Psychiatric: Alert, Oriented x3 Hospital Course Patient was admitted to the hospital secondary to dizziness and was found to have orthostatic hypotension. His Lasix was held and he did well. He was seen by cardiology. He underwent VQ scan which was negative for PE. His symptoms resolved and he was discharged home in stable and improved condition to follow- up with Dr. Farrar next week. Labs (last 24 hrs) Laboratory Tests 08/12/21 05:19: White Blood Count 5.0, Red Blood Count 3.66L, Hemoglobin 12.4L, Hematocrit 37L, Mean Corpuscular Volume 101H, Mean Corpuscular Hemoglobin 34, Mean Corpuscular Hemoglobin Concent 34, Red Cell Distribution Width 13.6, Platelet Count 145, Mean Platelet Volume 9.8, Immature Granulocyte % (Auto) 0, Neutrophils (%) (Auto) 55, Lymphocytes (%) (Auto) 27, Monocytes (%) (Auto) 10, Eosinophils (%) (Auto) 7, Basophils (%) (Auto) 1, Neutrophils # (Auto) 2.7, Lymphocytes # (Auto) 1.4, Monocytes # (Auto) 0.5, Eosinophils # (Auto) 0.4H, Basophils # (Auto) 0.1, Immature Granulocyte # (Auto) 0.0, Sodium Level 141, Potassium Level 3.7, Chloride Level 108H, Carbon Dioxide Level 23, Anion Gap 10, Blood Urea Nitrogen 22H, Creatinine 1.07, Estimat Glomerular Filtration Rate 72, BUN/Creatinine Ratio 21, Glucose Level 117H, Calcium Level 9.0, Corrected Calcium 9.5, Total Bilirubin 0.9, Aspartate Amino Transf (AST/SGOT) 25, Alanine Aminotransferase (ALT/SGPT) 23, Alkaline Phosphatase 92, Total Protein 6.8, Albumin 3.4 Patient resulted labs reviewed. Pending Labs Laboratory Tests 08/12/21 05:19: White Blood Count 5.0, Red Blood Count 3.66, Hemoglobin 12.4, Hematocrit 37, Mean Corpuscular Volume 101, Mean Corpuscular Hemoglobin 34, Mean Corpuscular Hemoglobin Concent 34, Red Cell Distribution Width 13.6, Platelet Count 145, Mean Platelet Volume 9.8, Immature Granulocyte % (Auto) 0, Neutrophils (%) (Auto) 55, Lymphocytes (%) (Auto) 27, Monocytes (%) (Auto) 10, Eosinophils (%) (Auto) 7, Basophils (%) (Auto) 1, Neutrophils # (Auto) 2.7, Lymphocytes # (Auto) 1.4, Monocytes # (Auto) 0.5, Eosinophils # (Auto) 0.4, Basophils # (Auto) 0.1, Immature Granulocyte # (Auto) 0.0, Sodium Level 141, Potassium Level 3.7, Chloride Level 108, Carbon Dioxide Level 23, Anion Gap 10, Blood Urea Nitrogen 22, Creatinine 1.07, Estimat Glomerular Filtration Rate 72, BUN/Creatinine Ratio 21, Glucose Level 117, Calcium Level 9.0, Corrected Calcium 9.5, Total Bilirubin 0.9, Aspartate Amino Transf (AST/SGOT) 25, Alanine Aminotransferase (ALT/SGPT) 23, Alkaline Phosphatase 92, Total Protein 6.8, Albumin 3.4 Imaging: Reviewed Imaging Report Discussion & Recommendations Discharge Planning: >30 minutes discharge planning Discharge Home Medications: Active Scripts Active Reported Furosemide 40 Mg Tablet 40 Mg PO DAILY Tramadol HCl 50 Mg Tablet 50 Mg PO TID PRN Flomax (Tamsulosin HCl) 0.4 Mg Cap 0.4 Mg PO HS Fiber Powder (Psyllium Husk (with Sugar)) 3 Gram/12 Gram Powder 368 Gm PO BID PRN Miralax (Polyethylene Glycol 3350) 17 Gram Powd.pack 17 Gm PO DAILY PRN Metoprolol Tartrate 50 Mg Tablet 25 Mg PO BID TAKES OF A 50MG TAB Finasteride 5 Mg Tablet 5 Mg PO DAILY Ezetimibe 10 Mg Tablet 10 Mg PO HS Vitamin D3 (Cholecalciferol (Vitamin D3)) 25 Mcg (1000 Unit) Capsule 25 Mcg PO DAILY Amiodarone HCl 200 Mg Tablet 200 Mg PO DAILY Aspirin EC (Aspirin) 81 Mg Tablet.dr 81 Mg PO DAILY Atorvastatin Calcium 80 Mg Tablet 40 Mg PO HS TAKES OF A 80MG TAB Multivitamins with Minerals (Multivitamin with Minerals) 1 Each Tablet 1 Each PO DAILY Eye Health Adult 50+ Softgel (Antiox #11/Om3/Dha/Epa/Lut/Salvador) 1 Each Capsule 1 Each PO BID Cyclobenzaprine HCl 10 Mg Tablet 10 Mg PO HS PRN Vitamin B-12 (Cyanocobalamin (Vitamin B-12)) 1,000 Mcg Tablet 1,000 Mcg PO DAILY Allopurinol 100 Mg Tablet 100 Mg PO DAILY Proair Hfa (Albuterol Sulfate) 1 Puff Puff 2 Puff IH QID PRN Tylenol Extra Strength (Acetaminophen) 500 Mg Tablet 1,000 Mg PO Q8H PRN Vitamin C (Ascorbate Calcium) 500 Mg Tablet 500 Mg PO DAILY Instructions to patient/family Please see electronic discharge instructions given to patient. Clinical Quality Measures AMI/AHF: ASA po Prior to arrival: JONATHAN Velazquez MD Aug 12, 2021 11:36
[2021-08-12 12:46] VITALS: BP 156/87
== END 2021-08-12 12:47 | disposition home or self-care (01) ==
LOC: EDUNIT# 16:25 → ER 16:31 → 4TH 22:51
PROVIDERS: ADMIT Internal Medicine; ATTEND Family Medicine
DX: I95.1 Orthostatic hypotension (principal); N17.9 Acute kidney failure, unspecified; R42 Dizziness and giddiness; R77.8 Other specified abnormalities of plasma proteins; I10 Essential (primary) hypertension; E78.5 Hyperlipidemia, unspecified; N40.0 Benign prostatic hyperplasia without lower urinary tract symptoms; E66.9 Obesity, unspecified; I82.409 Acute embolism and thrombosis of unspecified deep veins of unspecified lower extremity; Z79.01 Long term (current) use of anticoagulants; Z79.82 Long term (current) use of aspirin; R79.1 Abnormal coagulation profile
CPT/HCPCS: 36415; 71045; 71275; 80053; 80061; 81000; 82947; 83735; 83880; 84484; 85025; 85379; 87636; 93005; 93041; 93306; 93880; 96372

== ENCOUNTER 2021-08-30 14:43 | Outpatient (RCR) | payer OTHER ==
[~2021-08-30 14:43] MED LIST changes: +CHOL10007 PO; +FURO40TA4 PO; +METO50TA15 PO; +POLY17PO6 PO; +[UNRECOGNIZED DRUG - CODE] PO
== END 2021-08-31 | disposition home or self-care (01) ==
LOC: CR 14:43
PROVIDERS: ATTEND Internal Medicine Cardiovascular Disease
DX: Z29.8 Encounter for other specified prophylactic measures (principal); I50.812 Chronic right heart failure; I47.2 Ventricular tachycardia
CPT/HCPCS: 93798

== ENCOUNTER 2021-09-29 08:48 | Outpatient (RCR) | payer OTHER | END 2021-10-01 | disposition home or self-care (01) | LOC: CR 08:48 | PROVIDERS: ATTEND Internal Medicine Cardiovascular Disease | DX: Z29.8 Encounter for other specified prophylactic measures (principal); I50.812 Chronic right heart failure; I47.2 Ventricular tachycardia | CPT/HCPCS: 93798 ==

== ENCOUNTER → 2021-11-01 | Outpatient (RCR) | payer OTHER | END | disposition home or self-care (01) | LOC: CR 10-02 06:11 | PROVIDERS: ATTEND Internal Medicine Cardiovascular Disease | DX: Z29.8 Encounter for other specified prophylactic measures (principal); I50.812 Chronic right heart failure; I47.2 Ventricular tachycardia | CPT/HCPCS: 93798 ==

== ENCOUNTER 2021-11-15 08:45 | Outpatient (RCR) | payer OTHER | END 2021-12-01 | disposition home or self-care (01) | LOC: CR 08:45 | PROVIDERS: ATTEND Internal Medicine Cardiovascular Disease | DX: Z29.8 Encounter for other specified prophylactic measures (principal); I50.812 Chronic right heart failure; I47.2 Ventricular tachycardia | CPT/HCPCS: 93798 ==

== ENCOUNTER 2021-12-29 10:30 | Outpatient (RCR) | payer OTHER ==
[~2021-12-29 10:30] MED LIST changes: +ALBU8.5H6 IH; -RT-ALBUINH IH
== END 2021-12-31 | disposition home or self-care (01) ==
LOC: CR3 10:30
PROVIDERS: ATTEND Internal Medicine Cardiovascular Disease
DX: Z29.8 Encounter for other specified prophylactic measures (principal)

== ENCOUNTER 2022-02-21 09:59 | Outpatient (RCR) | payer OTHER | END 2022-03-02 | disposition home or self-care (01) | LOC: CR3 09:59 | PROVIDERS: ATTEND Internal Medicine Cardiovascular Disease | DX: Z29.8 Encounter for other specified prophylactic measures (principal) ==

== ENCOUNTER → 2022-04-12 | Outpatient (CLI) | payer OTHER ==
--- NOTE | 2022-04-12 13:01 | Diagnostic Imaging Report ---
PROCEDURE: US Renal Bilateral. TECHNIQUE: Multiple real-time grayscale images were obtained over the kidneys in various projections bilaterally. INDICATION: Benign prostatic hyperplasia. Right kidney measures 11.1 x 5.3 x 5.2 cm and the left kidney measures 11.6 x 6.1 x 6.3 cm. Cortical thickness and echogenicity is normal. There is an echogenic focus in the left kidney approximately 9 mm in size, perhaps a nonobstructing calculus. No hydronephrosis is identified. Ureteral jets were noted within the urinary bladder. IMPRESSION: Questionable nonobstructing calculus in the left kidney. No hydronephrosis is detected. Dictated by: Dictated on workstation # [id number]
== END ==
LOC: RAD 12:00
PROVIDERS: ATTEND Nurse Practitioner Family
DX: N40.0 Benign prostatic hyperplasia without lower urinary tract symptoms (principal); N31.9 Neuromuscular dysfunction of bladder, unspecified
CPT/HCPCS: 76770

== ENCOUNTER 2022-04-29 11:08 | Emergency (ER) | payer OTHER ==
[~2022-04-29] VITALS: Ht 182 cm; Wt 100.0 kg
--- NOTE | 2022-04-29 11:44 | ED GU-Male ---
General Chief Complaint: - Reproductive Stated Complaint: UTI, BLOOD IN URINE Nursing Triage Note: PT TO ED W/ C/O HEMATURIA ONSET LAST NOC, WORSE TODAY. REPORTS HAS TO SELF CATH DUE TO "NO BLADDER TONE". DENIES C/O PAIN, JUST PRESSURE ET URGENCY. NO OTHER C/O VOICED. Source: patient, family Exam Limitations: no limitations History of Present Illness Date Seen by Provider: Apr 29, 2022 Time Seen by Provider: 11:41 Initial Comments Patient is a 77-year-old male with a history of benign hyperplastic prostate, hypertension, V. tach, chronic hypoxia, neurogenic bladder who presents to the ED for blood in his urine. Patient self caths 4 times a day. Typically gets around 20 ounces per self cath. Yesterday evening noted gross blood after catheterization. Had a similar episode around 4:00 this morning. Patient is currently on finasteride. Follows up with nurse practitioner Gena Jauregui at [facility] for urology services. Had a renal bladder ultrasound performed on April 05 but has not followed up with the results. Patient oxygen level is typically in the upper 80s and chronic. Currently in rehab. Has seen a pipe and test supervisor and on air talent for his low oxygen. Denies any chest pain, cough or shortness of breath. He reports some lower abdominal pressure. No fever, chills, change in mental status. Patient does not wear oxygen. Allergies and Home Medications Allergies Uncoded Allergies: UNKNOWN CHOLESTEROL MED. (Allergy, Unknown, UNKNOWN STATES CAN'T REMEMBER MEDIATION NOR SIDE EFFECT, 07/10/21) Patient Home Medication List Home Medication List Reviewed: Yes Acetaminophen (Tylenol Extra Strength) 500 Mg Tablet, 1,000 MG PO Q8H PRN for PAIN-MILD (1-4) OR TEMPATURE, (Reported) Entered as Reported by: GIO CARLOS on 05/19/211547 Albuterol Sulfate (Ventolin Hfa) 1 Puff Puff, 2 PUFF IH QID PRN for SHORTNESS OF BREATH, (Reported) Entered as Reported by: GIO CARLOS on 05/19/211547 Allopurinol (Allopurinol) 100 Mg Tablet, 100 MG PO DAILY, (Reported) Entered as Reported by: GIO CARLOS on 05/19/211547 Amiodarone HCl (Amiodarone HCl) 200 Mg Tablet, 200 MG PO DAILY, (Reported) Entered as Reported by: GIO CARLOS on 08/11/21 154 Antiox #11/Om3/Dha/Epa/Lut/Salvador (Eye Health Adult 50+ Softgel) 1 Each Capsule, 1 EACH PO BID, (Reported) Entered as Reported by: GIO CARLOS on 05/19/21 154 Ascorbate Calcium (Vitamin C) 500 Mg Tablet, 500 MG PO DAILY, (Reported) Entered as Reported by: GIO CARLOS on 05/19/21 154 Aspirin (Aspirin EC) 81 Mg Tablet.dr, 81 MG PO DAILY, (Reported) Entered as Reported by: GIO CARLOS on 08/11/21 154 Atorvastatin Calcium (Atorvastatin Calcium) 80 Mg Tablet, 40 MG PO HS, (Reported) Entered as Reported by: GIO CARLOS on 06/09/21 1435 Cephalexin (Cephalexin) 500 Mg Tablet, 500 MG PO TID Prescribed by: JASON MONET on 04/29/22 1412 Last Action: New Order Cholecalciferol (Vitamin D3) (Vitamin D3) 25 Mcg (1000 Unit) Capsule, 25 MCG PO DAILY, (Reported) Entered as Reported by: GIO CARLOS on 08/11/21 154 Cyanocobalamin (Vitamin B-12) (Vitamin B-12) 1,000 Mcg Tablet, 1,000 MCG PO DAILY, (Reported) Entered as Reported by: GIO CARLOS on 05/19/21 154 Cyclobenzaprine HCl (Cyclobenzaprine HCl) 10 Mg Tablet, 10 MG PO HS PRN for MUSCLE SPASMS, (Reported) Entered as Reported by: GIO CARLOS on 05/19/21 154 Ezetimibe (Ezetimibe) 10 Mg Tablet, 10 MG PO HS, (Reported) Entered as Reported by: GIO CARLOS on 08/11/21 154 Finasteride (Finasteride) 5 Mg Tablet, 5 MG PO DAILY, (Reported) Entered as Reported by: GIO CARLOS on 08/11/21 154 Furosemide (Furosemide) 40 Mg Tablet, 40 MG PO DAILY, (Reported) Entered as Reported by: GIO CARLOS on 08/11/21 154 Metoprolol Tartrate (Metoprolol Tartrate) 50 Mg Tablet, 25 MG PO BID, (Reported) Entered as Reported by: GIO CARLOS on 08/11/211540 Multivitamin with Minerals (Multivitamins with Minerals) 1 Each Tablet, 1 EACH PO DAILY, (Reported) Entered as Reported by: GIO CARLOS on 05/19/211548 Polyethylene Glycol 3350 (Miralax) 17 Gram Powd.pack, 17 GM PO DAILY PRN for CONSTIPATION-2ND LINE, (Reported) Entered as Reported by: GIO CARLOS on 08/11/211540 Psyllium Husk (with Sugar) (Fiber Powder) 3 Gram/12 Gram Powder, 368 GM PO BID PRN for CONSTIPATION, (Reported) Entered as Reported by: GIO CARLOS on 08/11/211540 Tamsulosin HCl (Flomax) 0.4 Mg Cap, 0.4 MG PO HS, (Reported) Entered as Reported by: GIO CARLOS on 08/11/211540 Tramadol HCl (Tramadol HCl) 50 Mg Tablet, 50 MG PO TID PRN for PAIN-MODERATE (5- 7), (Reported) Entered as Reported by: GIO CAROLS on 08/11/211540 Review of Systems Review of Systems Constitutional: No chills, No diaphoresis EENTM: No hearing loss, No ear pain, No blurred vision Respiratory: No cough, No dyspnea on exertion, No short of breath Gastrointestinal: No abdominal pain, No diarrhea, No nausea, No vomiting Genitourinary: denies burning, denies discharge; hematuria Musculoskeletal: No back pain, No joint pain Skin: No change in color, No change in hair/nails All Other Systemes Reviewed Negative Unless Noted: Yes Past Jqnoejk-Rgdqor-Vdazsa Hx Patient Social History Tobacco Use?: No Use of E-Cig and/or Vaping dev: No Substance use?: No Alcohol Use?: Yes Alcohol type: Beer Alcohol Frequency: Couple times a week Pt feels they are or have been: No Immunizations Up To Date First/Initial COVID19 Vaccinat: 2020 Second COVID19 Vaccination Eugenio: 2020 Third COVID19 Vaccination Date: 2021 Past Medical History Surgery/Hospitalization HX: HEART FAILURE DIABETIC GOUT UROLOGY "ISSUES" Surgeries: Yes (PACEMAKER/DEF, ANAL FISTULA, ) Defibrillator, Orthopedic, Pacemaker, Rectal Respiratory: No Cardiac: Yes (CARDIOMYOPATHY, AVRD; V-TACH) Cardiomyopathy, Chronic Edema/Swelling, High Cholesterol, Irregular Heartbeat Neurological: Yes Cerebral Palsy Genitourinary: Yes Benign Prostatic Hyperpl, Kidney Infection, Prostate Problems, Bladder Infection Gastrointestinal: Yes Chronic Constipation Musculoskeletal: Yes Gout Endocrine: Yes Diabetes, Non-Insulin dep HEENT: No Cancer: No Psychosocial: No Integumentary: No Blood Disorders: No Family Medical History No Pertinent Family Hx Physical Exam Vital Signs Vital Signs - First Documented 04/29/22 11:18 Temp 36.7 Pulse 63 Resp 20 B/P (MAP) 123/85 (98) Pulse Ox 90 O2 Delivery Room Air Capillary Refill : Less Than 3 Seconds Height, Weight, BMI Height: 6'1.00" Weight: 235lbs. oz. 106.488750qm; 30.00 BMI Method:Stated General Appearance: WD/WN, no apparent distress HEENT: PERRL/EOMI, normal ENT inspection, TMs normal, pharynx normal Neck: non-tender, full range of motion, supple Cardiovascular: regular rate, rhythm, no edema, no gallop, no JVD Respiratory: chest non-tender, lungs clear, normal breath sounds Gastrointestinal: normal bowel sounds, soft, no organomegaly, tenderness (Suprapubic tenderness) Male: normal genitalia Back: normal inspection, no CVA tenderness, no vertebral tenderness Extremities: normal range of motion, non-tender, normal inspection Neurologic/Psychiatric: painter assistant II-XII nml as tested, no motor/sensory deficits, alert, normal mood/affect Skin: normal color, warm/dry Progress/Results/Core Measures Suspected Sepsis SIRS Temperature: Pulse: 63 Respiratory Rate: 20 Laboratory Tests 04/29/22 11:45: White Blood Count 9.0 Blood Pressure 123 /85 Mean: 98 Laboratory Tests 04/29/22 11:45: Creatinine 1.31H, INR Comment 1.2, Platelet Count 157, Total Bilirubin 0.8 Results/Orders Lab Results Laboratory Tests Test 04/29/22 11:45 04/29/22 13:31 Range/Units White Blood Count 9.0 4.3-11.0 10^3/uL Red Blood Count 4.59 4.30-5.52 10^6/uL Hemoglobin 15.7 13.3-17.7 g/dL Hematocrit 46 40-54 % Mean Corpuscular Volume 99 80-99 fL Mean Corpuscular Hemoglobin 34 25-34 pg Mean Corpuscular Hemoglobin Concent 34 32-36 g/dL Red Cell Distribution Width 14.7 H 10.0-14.5 % Platelet Count 157 130-400 10^3/uL Mean Platelet Volume 9.9 9.0-12.2 fL Immature Granulocyte % (Auto) 0 % Neutrophils (%) (Auto) 76 H 42-75 % Lymphocytes (%) (Auto) 15 12-44 % Monocytes (%) (Auto) 8 0-12 % Eosinophils (%) (Auto) 0 0-10 % Basophils (%) (Auto) 0 0-10 % Neutrophils # (Auto) 6.8 1.8-7.8 10^3/uL Lymphocytes # (Auto) 1.3 1.0-4.0 10^3/uL Monocytes # (Auto) 0.7 0.0-1.0 10^3/uL Eosinophils # (Auto) 0.0 0.0-0.3 10^3/uL Basophils # (Auto) 0.0 0.0-0.1 10^3/uL Immature Granulocyte # (Auto) 0.0 0.0-0.1 10^3/uL Prothrombin Time 15.9 H 12.2-14.7 SEC INR Comment 1.2 0.8-1.4 Activated Partial Thromboplast Time 34 24-35 SEC Sodium Level 136 135-145 MMOL/L Potassium Level 4.4 3.6-5.0 MMOL/L Chloride Level 108 H 98-107 MMOL/L Carbon Dioxide Level 18 L 21-32 MMOL/L Anion Gap 10 5-14 MMOL/L Blood Urea Nitrogen 29 H 7-18 MG/DL Creatinine 1.31 H 0.60-1.30 MG/DL Estimat Glomerular Filtration Rate 56 BUN/Creatinine Ratio 22 Glucose Level 172 H 70-105 MG/DL Calcium Level 9.0 8.5-10.1 MG/DL Corrected Calcium 9.3 8.5-10.1 MG/DL Total Bilirubin 0.8 0.1-1.0 MG/DL Aspartate Amino Transf (AST/SGOT) 33 5-34 U/L Alanine Aminotransferase (ALT/SGPT) 33 0-55 U/L Alkaline Phosphatase 128 40-136 U/L Total Protein 8.0 6.4-8.2 GM/DL Albumin 3.6 3.2-4.5 GM/DL Urine Color RED H Urine Clarity CLOUDY Urine pH 7.0 5-9 Urine Specific [place] 1.020 1.016-1.022 Urine Protein 3+ H NEGATIVE Urine Glucose (UA) 3+ H NEGATIVE Urine Ketones 1+ H NEGATIVE Urine Nitrite POSITIVE H NEGATIVE Urine Bilirubin 2+ H NEGATIVE Urine Urobilinogen >=8.0 < = 1.0 MG/DL Urine Leukocyte Esterase 2+ H NEGATIVE Urine RBC (Auto) 3+ H NEGATIVE Urine RBC TNTC H /HPF Urine WBC >100 H /HPF Urine Squamous Epithelial Cells NONE /HPF Urine Crystals NONE /LPF Urine Bacteria LARGE H /HPF Urine Casts NONE /LPF Urine Mucus NEGATIVE /LPF Urine Other /HPF Urine Culture Indicated YES My Orders Orders - MILAGROS DAO Ua Culture If Indicated (04/29/22 11:22) Cbc With Automated Diff (04/29/22 11:40) Comprehensive Metabolic Panel (04/29/22 11:40) Partial Thromboplastin Time (04/29/22 11:40) Protime With Inr (04/29/22 11:40) Ct Abd/Pelvis Wo(Kidney Stone) (04/29/22 11:45) Urine Culture (04/29/22 13:31) Ceftriaxone 1 Gm Pre-Mix (Rocephin 1 Gm (04/29/22 14:00) Vital Signs/I&O 04/29/22 04/29/22 11:18 14:52 Temp 36.7 36.7 Pulse 63 61 Resp 20 20 B/P (MAP) 123/85 (98) 136/71 Pulse Ox 90 91 O2 Delivery Room Air Room Air Capillary Refill : Less Than 3 Seconds Blood Pressure Mean: 98 Departure Communication (PCP) Patient in no acute distress. Chronic hypoxia. Oxygen level 88 to 89% on room air. Patient has seen a pipe and test supervisor and on air talent for this and family states this is his baseline. Patient with a full cardiac work-up last year. He has no chest pain, cough or shortness of breath. Concerning for hematuria since last night. Gross blood noted on the urinewith a strong odor. Self caths 4 times a day. Self cath here in the ED with 300 ml and was positive for UTI. Patient self cath right before arrival. CT abdomen pelvis concerning for cystitis. No evidence of hydronephrosis or nephrolithiasis. Patient with n ormal white blood count. Acute kidney insufficiency. Tolerating p.o. fluids. Patient was given dose of Rocephin. Patient feels well enough to go home. No change in mental status and afebrile. Will discharge with Keflex pending culture. Currently following up with urology at [facility]. Recommend contacting their office to schedule a follow-up and to monitor the hematuria. Patient denies a blood thinner. Return precaution were discussed such as change in mental status, fever, decreased urine output. States he has been removing around [id number] CC of urine average per self catheterization. Patient with neurogenic bladder. Impression Primary Impression: UTI (urinary tract infection) Disposition: 01 HOME, SELF-CARE Condition: Stable Departure-Patient Inst. Decision time for Depature: 14:10 Referrals: NO,LOCAL PHYSICIAN (PCP) Primary Care Physician RICHY SANTOS (Family) Primary Care Physician Patient Instructions: Urinary Tract Infection, Adult (DC) Scripts Cephalexin (Cephalexin) 500 Mg Tablet 500 MG PO TID for 7 Days, #21 TAB Prov: MILAGROS DAO 04/29/22 MILAGROS DAO Apr 29, 2022 11:44
[2022-04-29 11:52] LABS: BASOPHILS % (AUTO) 0 % (0-10); EOSINOPHILS % (AUTO) 0 % (0-10); HEMATOCRIT 46 % (40-54); HEMOGLOBIN 15.7 g/dL (13.3-17.7); LYMPHOCYTES # (AUTO) 1.3 10^3/uL (1.0-4.0); LYMPHOCYTES % (AUTO) 15 % (12-44); MEAN CORPUSCULAR HEMOGLOBIN 34 pg (25-34); MEAN CORPUSCULAR HGB CONC 34 g/dL (32-36); MEAN CORPUSCULAR VOLUME 99 fL (80-99); MEAN PLATELET VOLUME 9.9 fL (9.0-12.2); MONOCYTES # (AUTO) 0.7 10^3/uL (0.0-1.0); MONOCYTES % (AUTO) 8 % (0-12); NEUTROPHILS # (AUTO) 6.8 10^3/uL (1.8-7.8); NEUTROPHILS % (AUTO) 76 % (42-75); PLATELET COUNT 157 10^3/uL (130-400)
[2022-04-29 12:06] LABS: ALBUMIN 3.6 GM/DL (3.2-4.5)
[2022-04-29 12:07] LABS: POTASSIUM 4.4 MMOL/L (3.6-5.0)
[2022-04-29 12:09] LABS: INR 1.2 (0.8-1.4); PROTHROMBIN TIME PATIENT 15.9 SEC (12.2-14.7)
[2022-04-29 12:11] LABS: BILIRUBIN,TOTAL 0.8 MG/DL (0.1-1.0)
[2022-04-29 12:13] LABS: CREATININE SERUM 1.31 MG/DL (0.60-1.30)
--- NOTE | 2022-04-29 12:27 | Diagnostic Imaging Report ---
PROCEDURE: CT urinary tract, rule out kidney stone. TECHNIQUE: Multiple contiguous axial images were obtained through the abdomen and pelvis without the use of intravenous contrast. Auto Exposure Controls were utilized during the CT exam to meet ALARA standards for radiation dose reduction. INDICATION: Hematuria, patient self catheterizes for bladder atony. FINDINGS: Urinary bladder wall is thickened and there is pelvic perivesical stranding and edema. The appearance is suspicious for cystitis. No abdominopelvic intra or extraperitoneal fluid collection. No findings to suggest betsey bladder rupture. The kidneys themselves are unobstructed and normal. No radiodense urinary tract calculi. Liver, gallbladder, bile ducts, spleen, adrenals, and pancreas are unremarkable. The atherosclerotic aorta is nonaneurysmal. There is no ileus or bowel obstruction. There is no appendicitis or diverticulitis. Lung bases are clear. The heart is enlarged. IMPRESSION: Thickened urinary bladder wall with pelvic perivesical edema and stranding, suspect for bladder inflammation and cystitis. The unobstructed kidneys were normal and there are no radiodense urinary tract calculi. There is no hydronephrosis. Dictated by: Dictated on workstation # [id number]
[2022-04-29 13:37] LABS: CLARITY,URINE CLOUDY; COLOR,URINE RED; GLUCOSE, URINE (UA) 3+ (NEGATIVE); KETONES,URINE 1+ (NEGATIVE); LEUKOCYTE ESTERASE ,URINE 2+ (NEGATIVE); NITRITE,URINE POSITIVE (NEGATIVE); PROTEIN,URINE 3+ (NEGATIVE)
[2022-04-29 13:46] LABS: RBC,URINE TNTC /HPF
[2022-04-29 13:53] LABS: BACTERIA,URINE LARGE /HPF; BILIRUBIN,URINE 2+ (NEGATIVE); WBC,URINE >100 /HPF
[2022-04-29] MEDS ORDERED: cefTRIAXone 1 GM PRE-MIX 50 ML IV STA (14:00)
[2022-04-29] MEDS ORDERED: CEPH500T PO (14:12)
[2022-04-29 14:52] VITALS: BP 136/71
== END 2022-04-29 14:55 | disposition home or self-care (01) ==
LOC: EDUNIT# 11:08 → ER 11:09
DX: N39.0 Urinary tract infection, site not specified (principal); N28.9 Disorder of kidney and ureter, unspecified; R09.02 Hypoxemia
CPT/HCPCS: 36415; 74176; 80053; 81000; 85025; 85610; 85730; 87077; 87088; 87186

== ENCOUNTER 2022-05-02 08:46 | Outpatient (RCR) | payer OTHER ==
[~2022-05-02 08:46] MED LIST changes: +CEPH500T PO
== END 2022-05-03 | disposition home or self-care (01) ==
LOC: CR3 08:46
PROVIDERS: ATTEND Internal Medicine Cardiovascular Disease
DX: Z29.8 Encounter for other specified prophylactic measures (principal)

== ENCOUNTER 2022-06-07 16:57 | Observation (INO) | payer MEDICARE, OTHER ==
[~2022-06-07] VITALS: Ht 182 cm; Wt 98.4 kg
--- NOTE | 2022-06-07 17:19 | ED General ---
General Chief Complaint: Neurological Problems Stated Complaint: CONFUSION CANT WALK Source of Information: Patient, Family, RN/MD Exam Limitations: No Limitations History of Present Illness Date Seen by Provider: Jun 07, 2022 Time Seen by Provider: 17:00 Initial Comments 77-year-old male with past medical history of HTN, HLD, h/o VTach, BPH, neurogenic bladder (self cath several times per day), and chronic hypoxic respiratory failure (ranges from 89-92% on room air, does not use supplemental O2) coming in as a referral from the cardiology clinic due to confusion. Has had increasing confusion over the past several days. His is sure that he has a urinary tract infection which this is similar symptoms to previous episodes. Most recently he has been on Keflex for a UTI which he did finish. He is generally weak, but nothing focal, denies any chest pain, shortness of breath, abdominal pain, nausea, vomiting, diarrhea, or any other concerns. Per report from the security agent, they have no cardiac concerns that are acute today. Allergies and Home Medications Allergies Uncoded Allergies: UNKNOWN CHOLESTEROL MED. (Allergy, Unknown, UNKNOWN STATES CAN'T REMEMBER MEDIATION NOR SIDE EFFECT, 07/10/21) Patient Home Medication List Home Medication List Reviewed: Yes Acetaminophen (Tylenol Extra Strength) 500 Mg Tablet, 1,000 MG PO Q8H PRN for PAIN-MILD (1-4) OR TEMPATURE, (Reported) Entered as Reported by: GIO CARLOS on 05/19/21 154 Albuterol Sulfate (Ventolin Hfa) 1 Puff Puff, 2 PUFF IH QID PRN for SHORTNESS OF BREATH, (Reported) Entered as Reported by: GIO CARLOS on 05/19/21 1548 Allopurinol (Allopurinol) 100 Mg Tablet, 100 MG PO DAILY, (Reported) Entered as Reported by: GIO CARLOS on 05/19/21 1548 Amiodarone HCl (Amiodarone HCl) 200 Mg Tablet, 200 MG PO DAILY, (Reported) Entered as Reported by: GIO CARLOS on 08/11/21 1541 Antiox #11/Om3/Dha/Epa/Lut/Salvador (Eye Health Adult 50+ Softgel) 1 Each Capsule, 1 EACH PO BID, (Reported) Entered as Reported by: GIO CARLOS on 05/19/21 1549 Ascorbate Calcium (Vitamin C) 500 Mg Tablet, 500 MG PO DAILY, (Reported) Entered as Reported by: GIO CARLOS on 05/19/21 154 Aspirin (Aspirin EC) 81 Mg Tablet.dr, 81 MG PO DAILY, (Reported) Entered as Reported by: GIO CARLOS on 08/11/21 154 Atorvastatin Calcium (Atorvastatin Calcium) 80 Mg Tablet, 40 MG PO HS, (Reported) Entered as Reported by: GIO CARLOS on 06/09/21 1435 Cephalexin (Cephalexin) 500 Mg Tablet, 500 MG PO TID Prescribed by: JASON MONET on 04/29/22 1412 Cholecalciferol (Vitamin D3) (Vitamin D3) 25 Mcg (1000 Unit) Capsule, 25 MCG PO DAILY, (Reported) Entered as Reported by: GIO CARLOS on 08/11/21 154 Cyanocobalamin (Vitamin B-12) (Vitamin B-12) 1,000 Mcg Tablet, 1,000 MCG PO DAILY, (Reported) Entered as Reported by: GIO CARLOS on 05/19/211548 Cyclobenzaprine HCl (Cyclobenzaprine HCl) 10 Mg Tablet, 10 MG PO HS PRN for MUSCLE SPASMS, (Reported) Entered as Reported by: GIO CARLOS on 05/19/211548 Ezetimibe (Ezetimibe) 10 Mg Tablet, 10 MG PO HS, (Reported) Entered as Reported by: GIO CARLOS on 08/11/21 154 Finasteride (Finasteride) 5 Mg Tablet, 5 MG PO DAILY, (Reported) Entered as Reported by: GIO CARLOS on 08/11/21 154 Furosemide (Furosemide) 40 Mg Tablet, 40 MG PO DAILY, (Reported) Entered as Reported by: GIO CARLOS on 08/11/21 154 Metoprolol Tartrate (Metoprolol Tartrate) 50 Mg Tablet, 25 MG PO BID, (Reported) Entered as Reported by: GIO CARLOS on 08/11/21 154 Multivitamin with Minerals (Multivitamins with Minerals) 1 Each Tablet, 1 EACH PO DAILY, (Reported) Entered as Reported by: GIO CARLOS on 05/19/211548 Polyethylene Glycol 3350 (Miralax) 17 Gram Powd.pack, 17 GM PO DAILY PRN for CONSTIPATION-2ND LINE, (Reported) Entered as Reported by: GIO CARLOS on 08/11/211540 Psyllium Husk (with Sugar) (Fiber Powder) 3 Gram/12 Gram Powder, 368 GM PO BID PRN for CONSTIPATION, (Reported) Entered as Reported by: GIO CARLOS on 08/11/211540 Tamsulosin HCl (Flomax) 0.4 Mg Cap, 0.4 MG PO HS, (Reported) Entered as Reported by: GIO CARLOS on 08/11/211540 Tramadol HCl (Tramadol HCl) 50 Mg Tablet, 50 MG PO TID PRN for PAIN-MODERATE (5- 7), (Reported) Entered as Reported by: GIO CARLOS on 08/11/211540 Review of Systems Review of Systems Constitutional: fever EENTM: no symptoms reported Respiratory: no symptoms reported Cardiovascular: no symptoms reported Gastrointestinal: no symptoms reported Genitourinary: see HPI Musculoskeletal: no symptoms reported Skin: no symptoms reported Psychiatric/Neurological: No Symptoms Reported Hematologic/Lymphatic: No Symptoms Reported Immunological/Allergic: no symptoms reported Past Qlmbeec-Rpfjuz-Vbhtjg Hx Patient Social History Tobacco Use?: No Smoking Status: Former Smoker Use of E-Cig and/or Vaping dev: No Substance use?: No Alcohol Use?: Yes Alcohol type: Beer Pt feels they are or have been: No Immunizations Up To Date First/Initial COVID19 Vaccinat: 2020 Second COVID19 Vaccination Eugenio: 2020 Third COVID19 Vaccination Date: 2021 Past Medical History Surgery/Hospitalization HX: HEART FAILURE DIABETIC GOUT UROLOGY "ISSUES" Surgeries: Yes (PACEMAKER/DEF, ANAL FISTULA, ) Defibrillator, Orthopedic, Pacemaker, Rectal Respiratory: No Cardiac: Yes (CARDIOMYOPATHY, AVRD; V-TACH) Cardiomyopathy, Chronic Edema/Swelling, High Cholesterol, Irregular Heartbeat Neurological: Yes Cerebral Palsy Genitourinary: Yes Benign Prostatic Hyperpl, Kidney Infection, Prostate Problems, Bladder Infection Gastrointestinal: Yes Chronic Constipation Musculoskeletal: Yes Gout Endocrine: Yes Diabetes, Non-Insulin dep HEENT: No Cancer: No Psychosocial: No Integumentary: No Blood Disorders: No Family Medical History No Pertinent Family Hx Physical Exam Vital Signs Vital Signs - First Documented 06/07/22 06/07/22 17:14 17:48 Temp 38.3 Pulse 74 Resp 24 B/P (MAP) 155/91 (112) Pulse Ox 92 O2 Delivery Room Air Capillary Refill : Height, Weight, BMI Height: 6'1.00" Weight: 235lbs. oz. 106.334240ny; 30.00 BMI Method:Stated General Appearance: No Apparent Distress, WD/WN Eyes: Bilateral Eye Normal Inspection HEENT: PERRL/EOMI, Normal ENT Inspection, Pharynx Normal Neck: Full Range of Motion, Normal Inspection, Non Tender, Supple Respiratory: Chest Non Tender, Lungs Clear, Normal Breath Sounds, No Accessory Muscle Use, No Respiratory Distress Cardiovascular: Regular Rate, Rhythm, No Edema, Normal Peripheral Pulses Gastrointestinal: Normal Bowel Sounds, Non Tender, Soft; No Distended, No Guarding Back: Normal Inspection, No CVA Tenderness, No Vertebral Tenderness Extremity: Normal Capillary Refill, Normal Inspection, Normal Range of Motion, Non Tender, No Calf Tenderness, No Pedal Edema Neurologic/Psychiatric: Alert, Oriented x3, No Motor/Sensory Deficits, Normal Mood/Affect Skin: Normal Color, Warm/Dry Focused Exam Lactate Level 06/07/22 17:30: Lactic Acid Level 1.94 Lactic Acid Level Laboratory Tests Test 06/07/22 17:30 Lactic Acid Level 1.94 MMOL/L (0.50-2.00) Progress/Results/Core Measures Suspected Sepsis SIRS Temperature: Pulse: Respiratory Rate: Laboratory Tests 06/07/22 17:11: White Blood Count 11.1H Blood Pressure / Mean: 06/07/22 17:30: Lactic Acid Level 1.94 Laboratory Tests 06/07/22 17:11: Creatinine 1.24, INR Comment 1.2, Platelet Count 177, Total Bilirubin 1.6H Results/Orders Lab Results Laboratory Tests Test 06/07/22 17:11 06/07/22 17:27 06/07/22 17:30 06/07/22 17:39 Range/Units White Blood Count 11.1 H 4.3-11.0 10^3/uL Red Blood Count 4.55 4.30-5.52 10^6/uL Hemoglobin 15.8 13.3-17.7 g/dL Hematocrit 47 40-54 % Mean Corpuscular Volume 102 H 80-99 fL Mean Corpuscular Hemoglobin 35 H 25-34 pg Mean Corpuscular Hemoglobin Concent 34 32-36 g/dL Red Cell Distribution Width 15.3 H 10.0-14.5 % Platelet Count 177 130-400 10^3/uL Mean Platelet Volume 10.0 9.0-12.2 fL Immature Granulocyte % (Auto) 0 % Neutrophils (%) (Auto) 87 H 42-75 % Lymphocytes (%) (Auto) 6 L 12-44 % Monocytes (%) (Auto) 7 0-12 % Eosinophils (%) (Auto) 0 0-10 % Basophils (%) (Auto) 0 0-10 % Neutrophils # (Auto) 9.6 H 1.8-7.8 10^3/uL Lymphocytes # (Auto) 0.7 L 1.0-4.0 10^3/uL Monocytes # (Auto) 0.7 0.0-1.0 10^3/uL Eosinophils # (Auto) 0.0 0.0-0.3 10^3/uL Basophils # (Auto) 0.0 0.0-0.1 10^3/uL Immature Granulocyte # (Auto) 0.0 0.0-0.1 10^3/uL Neutrophils % (Manual) 88 % Lymphocytes % (Manual) 8 % Monocytes % (Manual) 4 % Polychromasia SLIGHT Macrocytosis SLIGHT Prothrombin Time 16.0 H 12.2-14.7 SEC INR Comment 1.2 0.8-1.4 Activated Partial Thromboplast Time 32 24-35 SEC Sodium Level 134 L 135-145 MMOL/L Potassium Level 4.5 3.6-5.0 MMOL/L Chloride Level 103 98-107 MMOL/L Carbon Dioxide Level 21 21-32 MMOL/L Anion Gap 10 5-14 MMOL/L Blood Urea Nitrogen 24 H 7-18 MG/DL Creatinine 1.24 0.60-1.30 MG/DL Estimat Glomerular Filtration Rate 60 BUN/Creatinine Ratio 19 Glucose Level 121 H 70-105 MG/DL Calcium Level 9.6 8.5-10.1 MG/DL Corrected Calcium 9.6 8.5-10.1 MG/DL Total Bilirubin 1.6 H 0.1-1.0 MG/DL Aspartate Amino Transf (AST/SGOT) 32 5-34 U/L Alanine Aminotransferase (ALT/SGPT) 24 0-55 U/L Alkaline Phosphatase 130 40-136 U/L Total Protein 8.8 H 6.4-8.2 GM/DL Albumin 4.0 3.2-4.5 GM/DL Urine Color YELLOW Urine Clarity CLOUDY Urine pH 5.5 5-9 Urine Specific [place] >=1.030 1.016-1.022 Urine Protein 2+ H NEGATIVE Urine Glucose (UA) 3+ H NEGATIVE Urine Ketones NEGATIVE NEGATIVE Urine Nitrite NEGATIVE NEGATIVE Urine Bilirubin NEGATIVE NEGATIVE Urine Urobilinogen 0.2 < = 1.0 MG/DL Urine Leukocyte Esterase NEGATIVE NEGATIVE Urine RBC (Auto) 2+ H NEGATIVE Urine RBC 5-10 H /HPF Urine WBC 0-2 /HPF Urine Squamous Epithelial Cells NONE /HPF Urine Crystals NONE /LPF Urine Bacteria LARGE H /HPF Urine Casts NONE /LPF Urine Mucus NEGATIVE /LPF Urine Other FEW SPERM H /HPF Urine Yeast FEW H /HPF Urine Culture Indicated CULTURE PENDING Lactic Acid Level 1.94 0.50-2.00 MMOL/L My Orders Orders - MILAGROS RODRIGUEZ MD Cbc With Automated Diff (06/07/22 17:16) Comprehensive Metabolic Panel (06/07/22 17:16) Blood Culture (06/07/22 17:16) Urinalysis (06/07/22 17:16) Urine Culture (06/07/22 17:16) Protime With Inr (06/07/22 17:16) Partial Thromboplastin Time (06/07/22 17:16) Chest 1 View, Ap/Pa Only (06/07/22 17:16) Acetaminophen Tablet (Tylenol Tablet) (06/07/22 17:30) Ed Iv/Invasive Line Start (06/07/22 17:16) Ed Iv/Invasive Line Start (06/07/22 17:16) Vital Signs Adult Sepsis Patie Q15M (06/07/22 17:16) O2 (06/07/22 17:16) Remove Rings In Anticipation O (06/07/22 17:16) Lactic Acid Analyzer (06/07/22 17:16) Ceftriaxone 1 Gm Pre-Mix (Rocephin 1 Gm (06/07/22 17:30) Ns Iv 500 Ml (Sodium Chloride 0.9%) (06/07/22 17:30) Manual Differential (06/07/22 17:11) Covid 19 Inhouse Test (06/07/22 17:35) Influenza A And B By Pcr (06/07/22 17:35) Medications Given in ED Current Medications Medications Dose Ordered Sig/Susan Route Start Time Stop Time Status Last Admin Dose Admin Acetaminophen 1,000 mg ONCE PRN PO 06/07/22 17:30 06/07/22 17:42 DC 06/07/22 17:41 1,000 MG Ceftriaxone Sodium/Dextrose 50 ml @ 100 mls/hr ONCE ONCE IV 06/07/22 17:30 06/07/22 17:59 06/07/22 17:44 100 MLS/HR Sodium Chloride 500 ml @ 0 mls/hr Q0M ONCE IV 06/07/22 17:30 06/07/22 17:31 DC 06/07/22 17:41 0 MLS/HR Vital Signs/I&O 06/07/22 06/07/22 06/07/22 06/07/22 17:14 17:31 17:41 17:48 Temp 38.3 38.6 Pulse 74 77 Resp 24 22 B/P (MAP) 155/91 (112) 164/97 (119) Pulse Ox 92 91 92 O2 Delivery Room Air Capillary Refill : Progress Note : Progress Note 77-year-old male with above history coming in due to confusion. ABCs were intact and vitals were stable on presentation although he is febrile. He was given Tylenol. An IV was placed and sepsis protocol was initiated. I reviewed the patient's most recent microbiology report from urine that he grew out. He grew out Proteus mirabilis which was sensitive to cephalosporins. He will be given IV ceftriaxone. He does have a history of heart failure on chart review and is intermittently on Lasix. We will give him 500 cc of normal saline and reassess him. I do think if we gave him more fluids it would be potentially harmful to the patient. Chest x-ray ordered and interpreted by me showing no obvious pneumonia, no pneumothorax, normal cardiac silhouette. Lactic acid is normal, white blood cell count slightly elevated, urinalysis concerning for infection. I contacted the hospitalist to admit the patient under observation status for further evaluation and management. Diagnostic Imaging Diagonstic Imaging: Xray Plain Films/CT/US/NM/MRI: chest Comments NAME: DAISHAVIPIN ROPER [facility] REC#: [id number] PT STATUS: REG ER : 1945 PHYSICIAN: MILAGROS RODRIGUEZ MD ADMIT DATE: 06/07/22/ER Draft Date of Exam:06/07/22 CHEST 1 VIEW, AP/PA ONLY EXAMINATION: Chest 1 view HISTORY: Altered mental status and fever COMPARISON: 08/10/2021 FINDINGS: Heart is enlarged. No edema or pneumonia. No pleural effusion or pneumothorax. A pacemaker is present. Patient is rotated to the right. IMPRESSION: 1. Clear lungs. Dictated on workstation # [id number] Dict: 06/07/221747 Trans: 06/07/221748 CV [id number] Interpreted by: PARTH GARCIA MD Electronically signed by: Departure Impression Primary Impression: Cystitis Additional Impression: AMS (altered mental status) Qualified Codes: R41.0 - Disorientation, unspecified Disposition: ADMITTED INPATIENT Condition: Stable Admissions Decision to Admit Reason: Admit from ER (General) Decision to Admit/Date: Jun 07, 2022 Time/Decision to Admit Time: 17:57 Departure-Patient Inst. Referrals: NO,LOCAL PHYSICIAN (PCP) Primary Care Physician RICHY SANTOS (Family) Primary Care Physician MILAGROS RODRIGUEZ MD Jun 07, 2022 17:19
[2022-06-07 17:24] LABS: BASOPHILS % (AUTO) 0 % (0-10); EOSINOPHILS % (AUTO) 0 % (0-10); HEMATOCRIT 47 % (40-54); HEMOGLOBIN 15.8 g/dL (13.3-17.7); LYMPHOCYTES # (AUTO) 0.7 10^3/uL (1.0-4.0); LYMPHOCYTES % (AUTO) 6 % (12-44); MEAN CORPUSCULAR HEMOGLOBIN 35 pg (25-34); MEAN CORPUSCULAR HGB CONC 34 g/dL (32-36); MEAN CORPUSCULAR VOLUME 102 fL (80-99); MONOCYTES # (AUTO) 0.7 10^3/uL (0.0-1.0); MONOCYTES % (AUTO) 7 % (0-12); NEUTROPHILS # (AUTO) 9.6 10^3/uL (1.8-7.8); NEUTROPHILS % (AUTO) 87 % (42-75); PLATELET COUNT 177 10^3/uL (130-400); WHITE BLOOD COUNT 11.1 10^3/uL (4.3-11.0)
[2022-06-07 17:28] LABS: POTASSIUM 4.5 MMOL/L (3.6-5.0)
[2022-06-07 17:29] LABS: CALCIUM 9.6 MG/DL (8.5-10.1)
[2022-06-07 17:30] LABS: TOTAL PROTEIN 8.8 GM/DL (6.4-8.2)
[2022-06-07] MEDS ORDERED: cefTRIAXone PRE-MIX 50 ML IV ONE (17:30)
[2022-06-07] MEDS ORDERED: NS IV 500 ML 500 ML IV ONE (17:30)
[2022-06-07] MEDS ORDERED: ACETAMINOPHEN 500 MG TAB (TYLENOL) PO PRN (17:30)
[2022-06-07 17:31] LABS: INR 1.2 (0.8-1.4)
[2022-06-07 17:32] LABS: BILIRUBIN,TOTAL 1.6 MG/DL (0.1-1.0)
[2022-06-07 17:34] LABS: CREATININE SERUM 1.24 MG/DL (0.60-1.30)
[2022-06-07 17:36] LABS: BILIRUBIN,URINE NEGATIVE (NEGATIVE); CLARITY,URINE CLOUDY; COLOR,URINE YELLOW; GLUCOSE, URINE (UA) 3+ (NEGATIVE); KETONES,URINE NEGATIVE (NEGATIVE); LEUKOCYTE ESTERASE ,URINE NEGATIVE (NEGATIVE); NITRITE,URINE NEGATIVE (NEGATIVE); PH,URINE 5.5 (5-9); PROTEIN,URINE 2+ (NEGATIVE)
[2022-06-07 17:50] LABS: BACTERIA,URINE LARGE /HPF; WBC,URINE 0-2 /HPF
--- NOTE | 2022-06-07 17:50 | Diagnostic Imaging Report ---
EXAMINATION: Chest 1 view HISTORY: Altered mental status and fever COMPARISON: 08/10/2021 FINDINGS: Heart is enlarged. No edema or pneumonia. No pleural effusion or pneumothorax. A pacemaker is present. Patient is rotated to the right. IMPRESSION: 1. Clear lungs. Dictated by: Dictated on workstation # [id number]
[2022-06-07 17:51] LABS: URINE OTHER FEW SPERM /HPF; YEAST,URINE FEW /HPF
[2022-06-07 17:54] LABS: LYMPHOCYTES % (MANUAL) 8 %; MONOCYTES % (MANUAL) 4 %; NEUTROPHILS % (MANUAL) 88 %; POLYCHROMASIA SLIGHT
[2022-06-07 20:18] VITALS: BP 104/66
[2022-06-07 20:19] VITALS: BP 104/66
[2022-06-07] MEDS ORDERED: ANTACID SUSP 30 ML UDC (MYLANTA) PO PRN (20:30)
[2022-06-07] MEDS ORDERED: BENZONATATE 100 MG (TESSALON) CAPSULE PO PRN (20:30)
[2022-06-07] MEDS ORDERED: MELATONIN 3 MG TABLET PO PRN (20:30)
[2022-06-07] MEDS ORDERED: ONDANSETRON 4 MG/2 ML (SDV) Z0FRAN IV PRN (20:30)
[2022-06-07] MEDS ORDERED: MILK OF MAGNESIA 400 MG/5 ML 30 ML UDC PO PRN (20:30)
[2022-06-07] MEDS: CATHETER FLUSH 10 ML SYR IVP SCH (22:19)
[2022-06-07] MEDS: ACETAMINOPHEN 500 MG TAB (TYLENOL) PO PRN (23:38)
[2022-06-08] VITALS: BP 121/72
[2022-06-08 04:00] VITALS: BP 115/68
[2022-06-08] MEDS: CATHETER FLUSH 10 ML SYR IVP SCH ×2 (05:46→13:54)
[2022-06-08 05:55] LABS: HEMATOCRIT 40 % (40-54); HEMOGLOBIN 13.8 g/dL (13.3-17.7); MEAN CORPUSCULAR HEMOGLOBIN 35 pg (25-34); MEAN CORPUSCULAR HGB CONC 35 g/dL (32-36); MEAN CORPUSCULAR VOLUME 101 fL (80-99); MEAN PLATELET VOLUME 10.1 fL (9.0-12.2); PLATELET COUNT 166 10^3/uL (130-400); WHITE BLOOD COUNT 11.2 10^3/uL (4.3-11.0)
[2022-06-08 06:22] LABS: CALCIUM 8.6 MG/DL (8.5-10.1)
[2022-06-08 06:27] LABS: CREATININE SERUM 1.23 MG/DL (0.60-1.30)
[2022-06-08 07:00] VITALS: BP 99/59
[2022-06-08] MEDS ORDERED: ASPIRIN E.C. 81 MG (ECOTRIN) TAB PO SCH (09:00)
[2022-06-08] MEDS ORDERED: AMIODARONE 200 MG (CORDARONE) TAB PO SCH (09:00)
--- NOTE | 2022-06-08 10:27 | Physical Therapy Evaluation ---
PT Evaluation-General Medical Diagnosis Admission Date Jun 07, 2022 at 19:41 Medical Diagnosis: urosepsis Onset Date: Jun 07, 2022 Therapy Diagnosis Therapy Diagnosis: debility/weakness Height/Weight Height (Feet): 6 Height (Inches): 1.00 Weight (Pounds): 235 Precautions Precautions/Isolations: Fall Prevention, Standard Precautions Referral Physician: Ethan Reason for Referral: Evaluation/Treatment Medical History Pertinent Medical History: DM, Heart Failure, HTN Additional Medical History pacemaker/neurogenic bladder (self caths) Current History ER secondary to confusion and unable to ambulate Reviewed History: Yes Social History Home: Single Level Current Living Status: Significant Other Prior Prior Level of Function SCALE: Activities may be completed with or without assistive devices. 5-Mpcjoijixs-bncbusp completes the activity by him/herself with no assistance from a helper. 5-Set-up or Clean-up Assistance-helper sets up or cleans up; patient completes activity. [place] assists only prior to or following the activity. 4-Supervision or Touching Assistance-helper provides verbal cues and/or touching/steadying and/or contact guard assistance as patient completes activity. Assistance may be provided throughout the activity or intermittently. 3-Partial/Moderate Assistance-helper does LESS THAN HALF the effort. [place] lifts, holds or supports trunk or limbs, but provides less than half the effort. 2-Substantial/Maximal Assistance-helper does MORE THAN HALF the effort. [place] lifts or holds trunk or limbs and provides more than half the effort. 7-Xymqqukpe-ofuwur does ALL the effort. Patient does none of the effort to complete the activity. Or, the assistance of 2 or more helpers is required for the patient to complete the activity. If activity was not attempted, code reason: 7-Patient Refused. 9-Not Applicable-not attempted and the patient did not perform the activity before the current illness, exacerbation or injury. 10-Not Attempted due to Environmental Limitations-(lack of equipment, weather restraints, etc.). 88-Not Attempted due to Medical Conditions or Safety Concerns. Bed Mobility: 6 Transfers (B,C,W/C): 6 Gait: 6 Indoor Mobility (Ambulation): Independent Prior Devices Use: Other-see list below (cane) PT Evaluation-Current Subjective Patient agrees to PT. Objective Patient Orientation: Person, Time, Situation ROM/Strength ROM Lower Extremities bilateral LE WFL Strength Lower Extremities 3+/5 bilateral LE all planes Integumentary/Posture Bowel Incontinence: No Bladder Incontinence: No Neuromuscular (Tone, Coordination, Reflexes) grossly intact Sensory Vision: Wears Glasses Hearing: Functional Transfers Lying to Sitting/Side of Bed(Q: 4 Sit to Stand (QC): 4 Chair/Zyq-hj-Nagrh Xfer(QC): 4 Gait Mode of Locomotion: Walk Anticipated Mode of Locomotion: Walk Walk 10 feet (QC): 4 Walk 50 ft with 2 Turns(QC): 4 Walk 150 ft (QC): 4 Distance: 250' Gait Assistive Device: FWW Comments/Gait Description VC's for body placement in FWW Balance Sitting Static: Normal Sitting Dynamic: Normal Standing Static: Fair Standing Dynamic: Fair Assessment/Needs Patient will benefit from skilled PT to address functional strength and mobility to improve current LOF to safely return to home at maximum LOF. Rehab Potential: Fair PT Construction Job Cost Estimator Goals Construction Job Cost Estimator Goals PT Construction Job Cost Estimator Goals Time Frame: Jun 16, 2022 Roll Left & Right (QC): 6 Sit to Lying (QC): 6 Lying-Sitting on Side/Bed(QC): 6 Sit to Stand (QC): 6 Chair/Flz-li-Ezxnj Xfer(QC): 6 Toilet Transfer (QC): 6 Walk 10 feet (QC): 6 Walk 50ft with 2 Turns (QC): 6 Walk 150 ft (QC): 6 PT Plan Problem List Problem List: Activity Tolerance, Functional Strength, Safety, Balance, Gait, Transfer Treatment/Plan Treatment Plan: Continue Plan of Care Treatment Plan: Bed Mobility, Education, Functional Activity Mallika, Functional Strength, Gait, Safety, Therapeutic Exercise, Transfers Treatment Duration: Jun 16, 2022 Frequency: 6 times per week Estimated Hrs Per Day: .25 hour per day Patient and/or Family Agrees t: Yes Time Time In: 845 Time Out: 901 DATE: Jun 08, 2022 Total Billed Treatment Time: 16 Total Billed Treatment [address] [facility] 16 min MATT MUNGUIA PT Jun 08, 2022 10:27
[2022-06-08] MEDS: ACETAMINOPHEN 500 MG TAB (TYLENOL) PO PRN (10:43)
--- NOTE | 2022-06-08 11:05 | Occupational Therapy Eval ---
OT Evaluation-General/PLF Medical Diagnosis Admission Date Jun 07, 2022 at 19:41 Medical Diagnosis: urosepsis Onset Date: Jun 07, 2022 Therapy Diagnosis Therapy Diagnosis: WEAKNESS Height/Weight Height (Feet): 6 Height (Inches): 1.00 Weight (Pounds): 235 Precautions Precautions/Isolations: Fall Prevention, Standard Precautions Weight Bear Status Weight Bearing Restriction: Weight Bearing/Tolerated Referral Physician: Ethan Referral Reason: Evaluation/Treatment Medical History Pertinent Medical History: DM, Heart Failure, HTN Social History Home: Single Level Current Living Status: Significant Other ADL-Prior Level of Function SCALE: Activities may be completed with or without assistive devices. 7-Xahuwgyvib-iftyziz completes the activity by him/herself with no assistance from a helper. 5-Set-up or Clean-up Assistance-helper sets up or cleans up; patient completes activity. [place] assists only prior to or following the activity. 4-Supervision or Touching Assistance-helper provides verbal cues and/or touching/steadying and/or contact guard assistance as patient completes activity. Assistance may be provided throughout the activity or intermittently. 3-Partial/Moderate Assistance-helper does LESS THAN HALF the effort. [place] lifts, holds or supports trunk or limbs, but provides less than half the effort. 2-Substantial/Maximal Assistance-helper does MORE THAN HALF the effort. [place] lifts or holds trunk or limbs and provides more than half the effort. 6-Cqvmkbork-vblykv does ALL the effort. Patient does none of the effort to complete the activity. Or, the assistance of 2 or more helpers is required for the patient to complete the activity. If activity was not attempted, code reason: 7-Patient Refused. 9-Not Applicable-not attempted and the patient did not perform the activity before the current illness, exacerbation or injury. 10-Not Attempted due to Environmental Limitations-(lack of equipment, weather restraints, etc.). 88-Not Attempted due to Medical Conditions or Safety Concerns. Self Care: Independent Functional Cognition: Independent DME/Equipment Comments [address] Self: Yes OT Current Status Subjective PREFERRED NAMEUNIQUE Pain Numeric Pain Scale: 0-No Pain Mental Status/Objective Patient Orientation: Person, Place, Time, Situation Current Glasses/Contacts: Yes Upper Extremity ROM BUE ROM WFLS Upper Extremity Coordination INTACT Upper Extremity Sensation INTACT Upper Extremity Strength 4/5 GROSSLY ADL-Treatment Eating (QC): 6 Oral Hygiene (QC): 5 Shower/Bathe Self (QC): 7 Upper Body Dressing (QC): 4 Lower Body Dressing (QC): 4 On/Off Footwear (QC): 4 Toileting Hygiene (QC): 4 REQUIRES REPEAT INSTRUCTION FOR POSTURE,AND USE OF FWW W/ ADLS Education OT Patient Education: Correct positioning, Modified ADL techniques, Progress toward Goal/Update tx plan, Purpose of tx/functional activities, Reviewed precautions, Rehab process, Safety issues, Transfer techniques, Use of adapted equipment Teaching Recipient: Patient Teaching Methods: Demonstration, Discussion Response to Teaching: Verbalize Understanding, Reinforcement Needed OT Site Safety Manager Goals Site Safety Manager Goals Eating (QC): 6 Oral Hygiene (QC): 6 Toileting Hygiene (QC): 6 Shower/Bathe Self (QC): 6 Upper Body Dressing (QC): 6 Lower Body Dressing (QC): 6 On/Off Footwear (QC): 6 1=Demonstrate adherence to instructed precautions during ADL tasks. 2=Patient will verbalize/demonstrate understanding of assistive devices/modifications for ADL. 3=Patient will improve strength/tolerance for activity to enable patient to perform ADL's. OT Education/Plan Problem List/Assessment Assessment: Decreased Activ Tolerance, Decreased Safety Aware, Decreased UE Strength, Impaired Funct Balance, Impaired Self-Care Skills Discharge Recommendations Plan/Recommendations: Continue POC Treatment Plan/Plan of Care Treatment,Training & Education: Yes Patient would benefit from OT for education, treatment and training to promote independence in ADL's, mobility, safety and/or upper extremity function for ADL's. Plan of Care: ADL Retraining, Functional Mobility, Group Exercise/Act as Ind, UE Funct Exercise/Act Treatment Duration: Jun 16, 2022 Frequency: 3 times per week (3-5 TIMES PER WEEK) Estimated Hrs Per Day: .25 hour per day Rehab Potential: Fair Time Start Time: 08:50 Stop Time: 09:03 DATE: Jun 08, 2022 Total Time Billed (hr/min): 13 Billed Treatment Time EVM 13 MIN PARESH EVANS OT Jun 08, 2022 11:05
[2022-06-08] MEDS ORDERED: EMPA25TA PO (11:38)
[2022-06-08] MEDS ORDERED: CRAN400C PO (11:38)
[2022-06-08] MEDS ORDERED: DOCU100C37 PO (11:38)
[2022-06-08] MEDS ORDERED: VIT1CAPS44 PO (11:38)
[2022-06-08] MEDS ORDERED: POTA-51 PO (11:38)
[2022-06-08] MEDS ORDERED: AMIO200T65 PO (11:38)
--- NOTE | 2022-06-08 11:49 | History & Physical-Hospitalist ---
History of Present Illness HPI/Chief Complaint Patient 77-year-old male who presented to the emergency department due to weakness and confusion. He is unable to tell me why he was here and refers me to his significant other Leia to give the history. He is able to tell me that he is feeling better and he would like to go home. Leia informed me that for the past couple days he has not been feeling well and yesterday when going to his normal heart doctor visit with Dr. Valencia he was quite weak and was hardly able to get to the car. He seemed more confused than normal as well. She states he does have some baseline dementia and is quite forgetful. Yesterday was worse than normal though and he was out of it. He was found to have a urinary tract infection and was admitted for further management. Leia states Jabier has already called her this morning around 6 AM stating he feels better and would like to discharge home. He informs me of the same. Source: patient Date Seen 06/08/22 Time Seen by a Provider: 11:42 Attending Physician No,Local Physician PCP Admitting Physician: Jonathan Long MD Attending Physician: Jonathan Long MD Referring Physician Date of Admission Jun 07, 2022 at 19:41 Home Medications & Allergies Home Medications Reviewed patient Home Medication Reconciliation performed by pharmacy medication reconciliations auto technician and/or nursing. Patients Allergies have been reviewed. Allergies Allergies Uncoded Allergies UNKNOWN CHOLESTEROL MED. ( Allergy, Unknown, UNKNOWN STATES CAN'T REMEMBER MEDIATION NOR SIDE EFFECT, 07/10/21) Past Ibnncfa-Pltyuy-Pezraj Hx Patient Social History Tobacco Use?: No Smoking Status: Former Smoker Use of E-Cig and/or Vaping dev: No Substance use?: No Alcohol Use?: No Alcohol type: Beer Additional alcohol type: 2 X WEEK Pt feels they are or have been: No Immunizations Up To Date Date of Influenza Vaccine: Jan 02, 2021 First/Initial COVID19 Vaccinat: 2020 Second COVID19 Vaccination Eugenio: 2020 Tetanus Booster (TDap): Less Than 5 Years Hepatitis A: No Hepatitis B: No Current Status Advance Directives: Unable to obtain Communicates: Verbally Primary Language: Mongolian Preferred Spoken Language: Mongolian Is interpretation needed?: No Sensory deficits: Vision impairment Past Medical History Surgeries: Defibrillator, Orthopedic, Pacemaker, Rectal Cardiomyopathy, Chronic Edema/Swelling, High Cholesterol, Irregular Heartbeat Cerebral Palsy Benign Prostatic Hyperpl, Kidney Infection, Prostate Problems, Bladder Infection Chronic Constipation Gout Diabetes, Non-Insulin dep Blood Disorders: No Family Medical History No Pertinent Family Hx Review of Systems Constitutional: see HPI Physical Exam Physical Exam Vital Signs Vital Signs - First Documented 06/07/22 06/07/22 17:14 17:48 Temp 38.3 Pulse 74 Resp 24 B/P (MAP) 155/91 (112) Pulse Ox 92 O2 Delivery Room Air Capillary Refill : Less Than 3 Seconds Height, Weight, BMI Height: 6'1.00" Weight: 235lbs. oz. 106.987060fr; 29.70 BMI Method:Stated General Appearance: No Apparent Distress, Chronically ill Respiratory: Lungs Clear, No Respiratory Distress Cardiovascular: Regular Rate, Rhythm, No Murmur Gastrointestinal: Normal Bowel Sounds, Non Tender, Soft Neurologic/Psychiatric: Alert, Oriented x3 (to major details) Results Results/Procedures Labs Laboratory Tests 06/07/22 17:11 06/08/22 05:18 Patient resulted labs reviewed. Imaging: Reviewed Imaging Report Imaging [facility] [place], [place] NAME: VIPIN [facility] REC#: [id number] PT STATUS: ADM Shan : 1945 PHYSICIAN: MILAGROS RODRIGUEZ MD ADMIT DATE: 06/07/22 Signed Date of Exam:06/07/22 CHEST 1 VIEW, AP/PA ONLY EXAMINATION: Chest 1 view HISTORY: Altered mental status and fever COMPARISON: 08/10/2021 FINDINGS: Heart is enlarged. No edema or pneumonia. No pleural effusion or pneumothorax. A pacemaker is present. Patient is rotated to the right. IMPRESSION: 1. Clear lungs. Dictated by: Dictated on workstation # [id number] Dict: 06/07/22 1748 Trans: 06/07/222204 CV [id number] Interpreted by: PARTH GARCIA MD Electronically signed by: PARTH GARCIA MD 06/07/222204 Assessment/Plan Admission Diagnosis UTI Admission Status: Observation Assessment and Plan Patient was admitted to the hospital secondary to urinary tract infection altered mental status. He was treated with IV antibiotics and did well. I reviewed his previous cultures and he had previously grown Proteus which was sensitive to Keflex. He will be discharged home on this. His significant other was concerned regarding his mentation and functional status but does report that he has been following for over a year. He was seen by physical therapy and was able to walk 250 feet with just supervision using his walker. I did discuss with Leia that if he is having increasing falls it may be time to consider assisted living or intermediate placement but she reports he would not want to live in either of those facilities. She reports they have a tiny home and he uses a quad cane instead of a walker there because there is not room for a walker. transportation services representative has been consulted. His mentation is back to what appears to be his baseline and his functional status is quite improved. Again I recommend assisted or long-term nursing facility but they declined. I will plan to discharge him home and offer home health. Diagnosis/Problems Diagnosis/Problems (1) UTI (urinary tract infection) Status: Acute (2) AMS (altered mental status) Status: Acute Qualifiers: Altered mental status type: disorientation Qualified Codes: R41.0 - Disorientation, unspecified (3) Dementia (4) Mixed hyperlipidemia (5) Debility JONATHAN LONG MD Jun 08, 2022 11:49
[2022-06-08 11:50] VITALS: BP 123/76
[2022-06-08] MEDS ORDERED: CEPH500T PO (12:53)
--- NOTE | 2022-06-08 12:56 | Discharge Inst-Simple/Standard ---
Discharge Inst-Standard Discharge Medications New, Converted or Re-Newed RX: Transmitted to Pharmacy Patient Instructions/Follow Up Plan of Care/Instructions/FU: Please continue to take your medications as written. Please follow up with your primary care doctor to follow up this hospital stay. Activity as Tolerated: Yes Discharge Diet: No Restrictions Return to The Hospital For: Chest pain, weakness, worsening confusion, shortness of breath, fever, weakness, if you feel you are getting worse. JONATHAN RAMOS MD Jun 08, 2022 12:56
[2022-06-08 14:11] VITALS: BP 123/76
[2022-06-08] MEDS ORDERED: cefTRIAXone PRE-MIX 50 ML IV SCH (17:30)
== END 2022-06-08 13:58 | disposition home or self-care (01) ==
LOC: EDUNIT# 16:57 → ER 17:01 → UNDOADMOB 19:41 → 4TH 19:41 → UNDODISOB 06-08 13:58
PROVIDERS: ADMIT Family Medicine; ATTEND Family Medicine
DX: N30.90 Cystitis, unspecified without hematuria (principal); R41.82 Altered mental status, unspecified; Z87.891 Personal history of nicotine dependence
CPT/HCPCS: 36415; 51701; 71045; 80048; 80053; 81000; 83605; 85007; 85027; 85610; 85730; 87040; 87077; 87088; 87186; 87636; G0378

== ENCOUNTER 2022-06-29 09:14 | Outpatient (RCR) | payer OTHER ==
[~2022-06-29 09:14] MED LIST changes: +CRAN400C PO; +DOCU100C37 PO; +EMPA25TA PO; +POTA-51 PO; +VIT1CAPS44 PO
== END 2022-07-01 | disposition home or self-care (01) ==
LOC: CR3 09:14
PROVIDERS: ATTEND Internal Medicine Cardiovascular Disease
DX: Z29.8 Encounter for other specified prophylactic measures (principal)

== ENCOUNTER 2022-08-28 14:29 | Inpatient (IN) | payer OTHER, MEDICARE ==
[~2022-08-28] VITALS: Ht 182 cm; Wt 95.2 kg
[~2022-08-28 14:29] MED LIST changes: +POTA-330 PO; -POTA-51 PO
[2022-08-28] MEDS ORDERED: cefTRIAXone IV/IM 1,000 MG in NS (IVPB) 50 ML IV ONE (14:45)
--- NOTE | 2022-08-28 14:49 | ED General ---
General Stated Complaint: POSSIBLE UTI Source of Information: Patient, Caregiver Exam Limitations: No Limitations (MILAGROS DAO) History of Present Illness Date Seen by Provider: Aug 28, 2022 Time Seen by Provider: 14:45 Initial Comments Patient is a 77-year-old male with a history of CHF, c, hypertension, hyperlipidemia, history of V. tach, BPH, neurogenic bladder, chronic hypoxia ranging between 87 to 92% on room air who presents to ED for confusion, falls an d hematuria. Patient reports dark urine since yesterday. Patient straight caths 3 times a day. History of flaccid bladder according to who is his caregiver. Patient fell 3 times yesterday. Increased confusion typically results secondary to a UTI. Recently treated with Keflex for UTI. Patient did finish. Patient does follow a urologist at [facility]. Patient was seen here in June with similar symptoms diagnosed with UTI. Patient did have 1 episode of diarrhea yesterday without any vomiting. Denies any fever, chills, chest pain, cough, shortness of breath, headache or dizziness. (MILAGROS DAO) Allergies and Home Medications Allergies Uncoded Allergies: UNKNOWN CHOLESTEROL MED. (Allergy, Unknown, UNKNOWN STATES CAN'T REMEMBER MEDIATION NOR SIDE EFFECT, 07/10/21) Patient Home Medication List Home Medication List Reviewed: Yes (MILAGROS DAO) Acetaminophen (Tylenol Extra Strength) 500 Mg Tablet, 1,000 MG PO Q8H PRN for PAIN-MILD (1-4) OR TEMPATURE, (Reported) Entered as Reported by: GIO CARLOS on 05/19/21 1548 Albuterol Sulfate (Ventolin Hfa) 1 Puff Puff, 2 PUFF IH QID PRN for SHORTNESS OF BREATH, (Reported) Entered as Reported by: GIO CARLOS on 05/19/21 1548 Allopurinol (Allopurinol) 100 Mg Tablet, 100 MG PO DAILY, (Reported) Entered as Reported by: GIO CARLOS on 05/19/21 1548 Amiodarone HCl (Amiodarone HCl) 200 Mg Tablet, 200 MG PO DAILY, (Reported) Entered as Reported by: GIO CARLOS on 06/08/22 1138 Ascorbate Calcium (Vitamin C) 500 Mg Tablet, 500 MG PO DAILY, (Reported) Entered as Reported by: GIO CARLOS on 05/19/21 154 Aspirin (Aspirin EC) 81 Mg Tablet.dr, 81 MG PO DAILY, (Reported) Entered as Reported by: GIO CARLOS on 08/11/21 154 Atorvastatin Calcium (Atorvastatin Calcium) 80 Mg Tablet, 40 MG PO HS, (Reported) Entered as Reported by: GIO CARLOS on 06/09/21 1435 Cephalexin (Cephalexin) 500 Mg Tablet, 500 MG PO BID Prescribed by: JONATHAN RAMOS on 06/08/22 1253 Cranberry (Cranberry) 400 Mg Capsule, 400 MG PO 1600, (Reported) Entered as Reported by: GIO CARLOS on 06/08/22 113 Docusate Sodium (Docusate Sodium) 100 Mg Capsule, 100 MG PO 1600, (Reported) Entered as Reported by: GIO CARLOS on 06/08/22 113 Empagliflozin (Jardiance) 25 Mg Tablet, 12.5 MG PO DAILY, (Reported) Entered as Reported by: GIO CARLOS on 06/08/22 113 Ezetimibe (Ezetimibe) 10 Mg Tablet, 10 MG PO DAILY, (Reported) Entered as Reported by: GIO CARLOS on 08/11/21 154 Finasteride (Finasteride) 5 Mg Tablet, 5 MG PO 1600, (Reported) Entered as Reported by: GIO CARLOS on 08/11/21 154 Furosemide (Furosemide) 40 Mg Tablet, 40 MG PO DAILY PRN for FLUID RETENTION, (Reported) Entered as Reported by: GIO CARLOS on 08/11/21 154 Metoprolol Tartrate (Metoprolol Tartrate) 50 Mg Tablet, 25 MG PO BID WITH MEALS, (Reported) Entered as Reported by: GIO CARLOS on 08/11/21 154 Multivitamin with Minerals (Multivitamins with Minerals) 1 Each Tablet, 1 EACH PO DAILY, (Reported) Entered as Reported by: GIO CARLOS on 05/19/21 154 Polyethylene Glycol 3350 (Miralax) 17 Gram Powd.pack, 17 GM PO DAILY PRN for CONSTIPATION-2ND LINE, (Reported) Entered as Reported by: GIO CARLOS on 08/11/21 154 Potassium Chloride (Potassium Chloride) 20 Meq Tablet.er, 20 MEQ PO DAILY PRN for WHEN TAKING FUROSEMIDE, (Reported) Entered as Reported by: GIO CARLOS on 06/08/22 1138 Psyllium Husk (with Sugar) (Fiber Powder) 3 Gram/12 Gram Powder, 1 PACKET PO BID PRN for CONSTIPATION, (Reported) Entered as Reported by: GIO CARLOS on 08/11/21 1541 Tramadol HCl (Tramadol HCl) 50 Mg Tablet, 50 MG PO TID PRN for PAIN-MODERATE (5- 7), (Reported) Entered as Reported by: GIO CARLOS on 08/11/21 1541 Vit C/E/Zn/Coppr/Lutein/Zeaxan (Preservision Areds 2 Softgel) 250MG-90MG Capsule, 1 EACH PO BID, (Reported) Entered as Reported by: GIO CARLOS on 06/08/22 1138 Review of Systems Review of Systems Constitutional: No chills, No diaphoresis, No fever, No malaise, No weakness EENTM: No hearing loss, No blurred vision, No double vision Respiratory: No cough Cardiovascular: No chest pain Gastrointestinal: No abdominal pain; diarrhea; No vomiting Genitourinary: No decreased output, No discharge; hematuria Musculoskeletal: No back pain, No joint pain Skin: No change in color, No change in hair/nails (MILAGROS DAO) All Other Systems Reviewed Negative Unless Noted: Yes (MILAGROS DAO) Past Bobqkfy-Dckpzg-Kxxybc Hx Immunizations Up To Date First/Initial COVID19 Vaccinat: 2020 Second COVID19 Vaccination Eugenio: 2020 Third COVID19 Vaccination Date: 2021 (MILAGROS DAO) Past Medical History Surgery/Hospitalization HX: HEART FAILURE DIABETIC GOUT UROLOGY "ISSUES" Surgeries: Yes (PACEMAKER/DEF, ANAL FISTULA, ) Defibrillator, Orthopedic, Pacemaker, Rectal Respiratory: No Cardiac: Yes (CARDIOMYOPATHY, AVRD; V-TACH) Cardiomyopathy, Chronic Edema/Swelling, High Cholesterol, Irregular Heartbeat Neurological: Yes Cerebral Palsy Genitourinary: Yes Benign Prostatic Hyperpl, Kidney Infection, Prostate Problems, Bladder Infection Gastrointestinal: Yes Chronic Constipation Musculoskeletal: Yes Gout Endocrine: Yes Diabetes, Non-Insulin dep HEENT: No Cancer: No Psychosocial: No Integumentary: No Blood Disorders: No (MILAGROS DAO) Family Medical History No Pertinent Family Hx (MILAGROS DAO) Physical Exam Vital Signs Vital Signs - First Documented 08/28/22 14:35 Temp 36.2 Pulse 85 Resp 20 B/P (MAP) 138/94 (109) Pulse Ox 93 O2 Delivery Nasal Cannula O2 Flow Rate 3.00 (DENA LINDA MD) Vital Signs Capillary Refill : (MILAGROS DAO) Height, Weight, BMI Height: 6'1.00" Weight: 235lbs. oz. 106.154355ig; 29.70 BMI Method:Stated General Appearance: No Apparent Distress, WD/WN Eyes: Bilateral Eye Normal Inspection, Bilateral Eye PERRL, Bilateral Eye EOMI HEENT: PERRL/EOMI, TMs Normal, Normal ENT Inspection Neck: Full Range of Motion, Normal Inspection, Non Tender, Supple Respiratory: Chest Non Tender, Lungs Clear, Normal Breath Sounds, No Accessory Muscle Use, No Respiratory Distress Cardiovascular: Regular Rate, Rhythm, No Edema, No Gallop, No JVD Gastrointestinal: Normal Bowel Sounds, No Organomegaly, No Pulsatile Mass, Non Tender Rectal: Normal Exam Back: Normal Inspection, No CVA Tenderness Extremity: Normal Capillary Refill, Normal Inspection, Normal Range of Motion, Non Tender Neurologic/Psychiatric: Alert, Oriented x3, No Motor/Sensory Deficits, Normal Mood/Affect, icd 9 coder II-XII Norm as Tested Skin: Normal Color, Warm/Dry (MILAGROS DAO) Focused Exam Lactate Level 08/28/22 15:10: Lactic Acid Level 1.44 (DNEA LINDA MD) Lactic Acid Level Laboratory Tests Test 08/28/22 15:10 Lactic Acid Level 1.44 MMOL/L (0.50-2.00) (DENA LINDA MD) Progress/Results/Core Measures Suspected Sepsis SIRS Temperature: Pulse: Respiratory Rate: Laboratory Tests 08/28/22 14:50: White Blood Count 5.4 Blood Pressure / Mean: 08/28/22 15:10: Lactic Acid Level 1.44 Laboratory Tests 08/28/22 14:50: Creatinine 1.26, INR Comment 1.2, Platelet Count 163, Total Bilirubin 1.1H (MILAGROS DAO) Results/Orders Lab Results Laboratory Tests Test 08/28/22 14:50 08/28/22 14:55 08/28/22 15:10 Range/Units White Blood Count 5.4 4.3-11.0 10^3/uL Red Blood Count 4.59 4.30-5.52 10^6/uL Hemoglobin 16.0 13.3-17.7 g/dL Hematocrit 48 40-54 % Mean Corpuscular Volume 105 H 80-99 fL Mean Corpuscular Hemoglobin 35 H 25-34 pg Mean Corpuscular Hemoglobin Concent 33 32-36 g/dL Red Cell Distribution Width 13.8 10.0-14.5 % Platelet Count 163 130-400 10^3/uL Mean Platelet Volume 10.4 9.0-12.2 fL Immature Granulocyte % (Auto) 0 % Neutrophils (%) (Auto) 73 42-75 % Lymphocytes (%) (Auto) 18 12-44 % Monocytes (%) (Auto) 8 0-12 % Eosinophils (%) (Auto) 1 0-10 % Basophils (%) (Auto) 0 0-10 % Neutrophils # (Auto) 3.9 1.8-7.8 X 10^3 Lymphocytes # (Auto) 1.0 1.0-4.0 X 10^3 Monocytes # (Auto) 0.4 0.0-1.0 X 10^3 Eosinophils # (Auto) 0.1 0.0-0.3 10^3/uL Basophils # (Auto) 0.0 0.0-0.1 10^3/uL Immature Granulocyte # (Auto) 0.0 0.0-0.1 10^3/uL Prothrombin Time 15.4 H 12.2-14.7 SEC INR Comment 1.2 0.8-1.4 Activated Partial Thromboplast Time 30 24-35 SEC Sodium Level 138 135-145 MMOL/L Potassium Level 4.1 3.6-5.0 MMOL/L Chloride Level 106 98-107 MMOL/L Carbon Dioxide Level 21 21-32 MMOL/L Anion Gap 11 5-14 MMOL/L Blood Urea Nitrogen 23 H 7-18 MG/DL Creatinine 1.26 0.60-1.30 MG/DL Estimat Glomerular Filtration Rate 59 BUN/Creatinine Ratio 18 Glucose Level 151 H 70-105 MG/DL Calcium Level 9.2 8.5-10.1 MG/DL Corrected Calcium 9.3 8.5-10.1 MG/DL Total Bilirubin 1.1 H 0.1-1.0 MG/DL Aspartate Amino Transf (AST/SGOT) 44 H 5-34 U/L Alanine Aminotransferase (ALT/SGPT) 37 0-55 U/L Alkaline Phosphatase 144 H 40-136 U/L Total Protein 8.3 H 6.4-8.2 GM/DL Albumin 3.9 3.2-4.5 GM/DL Urine Color ORANGE Urine Clarity CLOUDY Urine pH 5.5 5-9 Urine Specific Godwin 1.010 L 1.016-1.022 Urine Protein 2+ H NEGATIVE Urine Glucose (UA) 3+ H NEGATIVE Urine Ketones NEGATIVE NEGATIVE Urine Nitrite POSITIVE H NEGATIVE Urine Bilirubin NEGATIVE NEGATIVE Urine Urobilinogen 1.0 < = 1.0 MG/DL Urine Leukocyte Esterase TRACE H NEGATIVE Urine RBC (Auto) 3+ H NEGATIVE Urine RBC 25-50 H /HPF Urine WBC 10-25 H /HPF Urine Squamous Epithelial Cells 0-2 /HPF Urine Crystals NONE /LPF Urine Bacteria LARGE H /HPF Urine Casts NONE /LPF Urine Mucus MODERATE H /LPF Urine Culture Indicated CULTURE PENDING Lactic Acid Level 1.44 0.50-2.00 MMOL/L (DENA LINDA MD) Medications Given in ED Current Medications Medications Dose Ordered Sig/Susan Route Start Time Stop Time Status Last Admin Dose Admin Ceftriaxone Sodium 1000 mg/ Sodium Chloride 50 ml @ 100 mls/hr ONCE ONCE IV 08/28/22 14:45 08/28/22 15:14 DC 08/28/22 15:35 100 MLS/HR (DENA LINDA MD) Vital Signs/I&O 08/28/22 08/28/22 14:35 14:35 Temp 36.2 Pulse 85 Resp 20 B/P (MAP) 138/94 (109) Pulse Ox 93 93 O2 Delivery Nasal Cannula Nasal Cannula O2 Flow Rate 3.00 (DENA LINDA MD) Vital Signs/I&O Capillary Refill : (MILAGROS DAO) Departure Communication (PCP) Reviewed previous ER visits, H&P, lab testing . history of V. tach, BPH, hypertension presents to ED for 3 falls, weakness, hematuria. Patient was admitted in June for urosepsis. who is patient caregiver at bedside states patient was more weak last time. Patient appears slightly confused. He was slightly tachycardic and febrile. Patient was given Tylenol. no headache, chest pain cough or shortness of breath. Heart rate was near 49 bpm. According to patient has a lower than normal heart rate. History of CHF. Has a AICD with history of v tach. EKG showed low QRS voltage in pericardial leads. Sinus bradycardia with first-degree AV block, 48 bpm, QRS duration 109 MS, QTc 224 MS. Urinalysis self cath was positive for UTI. Reviewed previous urine cultures susceptible to Rocephin. Patient Was given 1 g Rocephin. He is afebrile. CBC, CMP was grossly unremarkable. Normal lactic acid. Blood cultures pending. Patient is a full code. Due to the increased weakness, falls and UTI patient will be admitted for observation and with treatment for UTI. agrees with this plan of action. She states when patient becomes this way is hard to take care of him at home if he does fall. Patient follows Dr. Rivera. (MILAGROS DAO) Impression Primary Impression: Urinary tract infection Additional Impression: Bradycardia Disposition: ADMITTED INPATIENT Condition: Stable Admissions Decision to Admit Reason: Admit from ER (General) Decision to Admit/Date: Aug 28, 2022 Time/Decision to Admit Time: 16:07 (MILAGROS DAO) Departure-Patient Inst. Referrals: NO,LOCAL PHYSICIAN (PCP) Primary Care Physician RICHY SANTOS (Family) Primary Care Physician ATTENDING PHYSICIAN NOTE: I was physically present as attending physician in the emergency department during the care of this patient, but I was not directly involved in the decision making or delivery of care for this patient. (DENA LINDA MD) MILAGROS DAO Aug 28, 2022 14:49 DENA LINDA MD Aug 28, 2022 20:51
[2022-08-28 15:07] LABS: BASOPHILS % (AUTO) 0 % (0-10); EOSINOPHILS # (AUTO) 0.1 10^3/uL (0.0-0.3); EOSINOPHILS % (AUTO) 1 % (0-10); HEMATOCRIT 48 % (40-54); LYMPHOCYTES % (AUTO) 18 % (12-44); MEAN CORPUSCULAR HEMOGLOBIN 35 pg (25-34); MEAN CORPUSCULAR HGB CONC 33 g/dL (32-36); MEAN CORPUSCULAR VOLUME 105 fL (80-99); MEAN PLATELET VOLUME 10.4 fL (9.0-12.2); MONOCYTES # (AUTO) 0.4 X 10^3 (0.0-1.0); MONOCYTES % (AUTO) 8 % (0-12); NEUTROPHILS # (AUTO) 3.9 X 10^3 (1.8-7.8); NEUTROPHILS % (AUTO) 73 % (42-75); PLATELET COUNT 163 10^3/uL (130-400); WHITE BLOOD COUNT 5.4 10^3/uL (4.3-11.0)
[2022-08-28 15:19] LABS: ALBUMIN 3.9 GM/DL (3.2-4.5); INR 1.2 (0.8-1.4); POTASSIUM 4.1 MMOL/L (3.6-5.0); PROTHROMBIN TIME PATIENT 15.4 SEC (12.2-14.7)
[2022-08-28 15:20] LABS: CALCIUM 9.2 MG/DL (8.5-10.1)
[2022-08-28 15:21] LABS: BILIRUBIN,URINE NEGATIVE (NEGATIVE); CLARITY,URINE CLOUDY; COLOR,URINE ORANGE; GLUCOSE, URINE (UA) 3+ (NEGATIVE); KETONES,URINE NEGATIVE (NEGATIVE); LEUKOCYTE ESTERASE ,URINE TRACE (NEGATIVE); NITRITE,URINE POSITIVE (NEGATIVE); PH,URINE 5.5 (5-9); PROTEIN,URINE 2+ (NEGATIVE)
[2022-08-28 15:21] LABS: TOTAL PROTEIN 8.3 GM/DL (6.4-8.2)
[2022-08-28 15:23] LABS: BILIRUBIN,TOTAL 1.1 MG/DL (0.1-1.0)
[2022-08-28 15:25] LABS: CREATININE SERUM 1.26 MG/DL (0.60-1.30)
[2022-08-28 15:25] LABS: BACTERIA,URINE LARGE /HPF; RBC,URINE 25-50 /HPF; SQUAMOUS EPITHELIAL CELL,UR 0-2 /HPF
[2022-08-28] MEDS ORDERED: ONDANSETRON 4 MG/2 ML (SDV) Z0FRAN IV PRN (17:30)
[2022-08-28] MEDS ORDERED: MELATONIN 3 MG TABLET PO PRN (17:30)
[2022-08-28] MEDS ORDERED: MILK OF MAGNESIA 400 MG/5 ML 30 ML UDC PO PRN (17:30)
[2022-08-28] MEDS ORDERED: BENZONATATE 100 MG (TESSALON) CAPSULE PO PRN (17:30)
[2022-08-28] MEDS ORDERED: ANTACID SUSP 30 ML UDC (MYLANTA) PO PRN (17:30)
[2022-08-28 17:38] VITALS: BP 153/91
[2022-08-28 19:41] VITALS: BP 140/81
[2022-08-28 23:11] VITALS: BP 123/79
[2022-08-29 03:25] VITALS: BP 97/60
[2022-08-29 08:05] VITALS: BP 148/88
--- NOTE | 2022-08-29 10:36 | History & Physical-Hospitalist ---
History of Present Illness HPI/Chief Complaint Patient is 77-year-old male with past medical history of CHF, V. tach, hypertension, hyperlipidemia, previous admission for urinary tract infection who presented to the emergency department due to confusion, weakness and blood in his urine. He states that he has had blood in his urine for 2 to 3 days. At rst she thought it was just dark but that noticed it was just bloody. He does have a history of neurogenic bladder and straight caths himself 3 times a day. He is unable to give me any more history but ER note states that he had also fallen and had increased confusion. This was typical of his previous UTI presentations. He reports feeling better this morning and is requesting discharge home. Source: patient Date Seen 08/29/22 Time Seen by a Provider: 09:30 Attending Physician No,Local Physician PCP Admitting Physician: Cary Long MD Attending Physician: Cary Long MD Referring Physician Date of Admission Aug 28, 2022 at 17:27 Home Medications & Allergies Home Medications Reviewed patient Home Medication Reconciliation performed by pharmacy medication reconciliations cardiac cath technician and/or nursing. Patients Allergies have been reviewed. Allergies Allergies Uncoded Allergies UNKNOWN CHOLESTEROL MED. ( Allergy, Unknown, UNKNOWN STATES CAN'T REMEMBER MEDIATION NOR SIDE EFFECT, 07/10/21) Past Ddgkyaa-Eqqoxy-Waiyjw Hx Patient Social History Marrital Status: cohabiting Tobacco Use?: No Use of E-Cig and/or Vaping dev: No Substance use?: No Alcohol Use?: No Alcohol type: Beer Alcohol Frequency: Once in a while Pt feels they are or have been: No Immunizations Up To Date Date of Influenza Vaccine: Jan 02, 2021 First/Initial COVID19 Vaccinat: unk Second COVID19 Vaccination Eugenio: 2020 Tetanus Booster (TDap): Less Than 5 Years Hepatitis A: No Hepatitis B: No Current Status Advance Directives: No Communicates: Verbally Primary Language: Slovenian Preferred Spoken Language: Slovenian Is interpretation needed?: No Implanted or Applied Medical D: Pacemaker Past Medical History Surgeries: Defibrillator, Orthopedic, Pacemaker, Rectal Cardiomyopathy, Chronic Edema/Swelling, High Cholesterol, Irregular Heartbeat Cerebral Palsy Benign Prostatic Hyperpl, Kidney Infection, Prostate Problems, Bladder Infection Chronic Constipation Gout Diabetes, Non-Insulin dep Blood Disorders: No Family Medical History Reviewed Nursing Family Hx No Pertinent Family Hx Review of Systems Constitutional: see HPI Physical Exam Physical Exam Vital Signs Vital Signs - First Documented 08/28/22 14:35 Temp 36.2 Pulse 85 Resp 20 B/P (MAP) 138/94 (109) Pulse Ox 93 O2 Delivery Nasal Cannula O2 Flow Rate 3.00 Capillary Refill : Less Than 3 Seconds Height, Weight, BMI Height: 6'1.00" Weight: 235lbs. oz. 106.929115jj; 28.74 BMI Method:Stated General Appearance: No Apparent Distress, Chronically ill Respiratory: Lungs Clear, No Respiratory Distress Cardiovascular: Regular Rate, Rhythm, No Murmur Gastrointestinal: Normal Bowel Sounds, Non Tender, Soft Neurologic/Psychiatric: Alert, Oriented x3 (major details only) Results Results/Procedures Labs Laboratory Tests 08/28/22 14:50 Patient resulted labs reviewed. Assessment/Plan Admission Diagnosis UTI Admission Status: Inpatient Order (span 2 midnights) Reason for Inpatient Admission: see below Assessment and Plan UTI Neurogenic bladder Continue abx Not septic PT/OT for weakness Await cultures Continue to straight cath Continue Finasteride CHF ventricular tachycardia HLD Continue home meds Gout Continue allopurinol and Tramadol CARY LONG MD Aug 29, 2022 10:36
[2022-08-29 11:52] VITALS: BP 119/80
[2022-08-29] MEDS ORDERED: CRAN500T4 PO (13:33)
[2022-08-29] MEDS ORDERED: CHOL400C9 PO (13:33)
--- NOTE | 2022-08-29 14:41 | Physical Therapy Evaluation ---
PT Evaluation-General Medical Diagnosis Admission Date Aug 28, 2022 at 17:27 Medical Diagnosis: UTI, confusion, falls, hematuria Onset Date: Aug 28, 2022 Therapy Diagnosis Therapy Diagnosis: Gait deficit, strength deficit Height/Weight Height (Feet): 6 Height (Inches): 1.00 Weight (Pounds): 235 Precautions Precautions/Isolations: Fall Prevention, Standard Precautions Weight Bear Status Right Lower Extremity: Right Weight Bearing/Tolerated Left Lower Extremity: Left Weight Bearing/Tolerated Referral Physician: Dr. Long Reason for Referral: Evaluation/Treatment Medical History Pertinent Medical History: DM, Heart Failure, HTN Reviewed History: Yes Social History Home: Single Level Current Living Status: Significant Other Entry Into Home: Stairs Without Railing PT Steps Into Home: 1 Prior Prior Level of Function SCALE: Activities may be completed with or without assistive devices. 0-Fuokmkacwu-znttwfh completes the activity by him/herself with no assistance from a helper. 5-Set-up or Clean-up Assistance-helper sets up or cleans up; patient completes activity. [place] assists only prior to or following the activity. 4-Supervision or Touching Assistance-helper provides verbal cues and/or touching/steadying and/or contact guard assistance as patient completes activity. Assistance may be provided throughout the activity or intermittently. 3-Partial/Moderate Assistance-helper does LESS THAN HALF the effort. [place] lifts, holds or supports trunk or limbs, but provides less than half the effort. 2-Substantial/Maximal Assistance-helper does MORE THAN HALF the effort. [place] lifts or holds trunk or limbs and provides more than half the effort. 5-Ccgewndym-mntyzn does ALL the effort. Patient does none of the effort to complete the activity. Or, the assistance of 2 or more helpers is required for the patient to complete the activity. If activity was not attempted, code reason: 7-Patient Refused. 9-Not Applicable-not attempted and the patient did not perform the activity bef ore the current illness, exacerbation or injury. 10-Not Attempted due to Environmental Limitations-(lack of equipment, weather r estraints, etc.). 88-Not Attempted due to Medical Conditions or Safety Concerns. Bed Mobility: 6 Transfers (B,C,W/C): 6 Gait: 6 Stairs: 6 Indoor Mobility (Ambulation): Independent Stairs: Independent Prior Device Use: quad cane PT Evaluation-Current Subjective Patient lying supine in bed upon PT arrival, agreeable to treatment. Patient rates pain at 0/10 currently. Objective Patient Orientation: Person, Place, Time, Situation ROM/Strength ROM Lower Extremities WFLs BLEs all planes Strength Lower Extremities 4/5 BLEs all planes Sensory Vision: Functional Hearing: Impaired Sensation Right Lower Extremit: Intact Sensation Left Lower Extremity: Intact Transfers Roll Left to Right (QC): 4 Sit to Lying (QC): 4 Lying to Sitting/Side of Bed(Q: 4 Sit to Stand (QC): 3 Chair/Tym-xf-Lnhfa Xfer(QC): 4 Gait Does the Patient Walk?: Yes Mode of Locomotion: Walk Anticipated Mode of Locomotion: Walk Walk 10 feet (QC): 4 Walk 50 ft with 2 Turns(QC): 4 Walk 150 ft (QC): 4 Distance: 270' Balance Sitting Static: Good Sitting Dynamic: Good Standing Static: Fair Standing Dynamic: Fair Assessment/Needs Patient tolerated treatment well. He is a little unsteady initially upon standing however reports he has been very tired and drowsy today. Patient performs all bed mobility and transfers with SBA, however does demonstrate mild instability at infrequent times. Patient ambulates 270 feet with quad cane in right UE, with SBA and verbal cues for safety, progression, posture and conservation of energy. Patient in bed post treatment with all needs met, nursing notified, call light in hand. 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 Time Frame: Sep 29, 2022 Roll Left & Right (QC): 6 Sit to Lying (QC): 6 Lying-Sitting on Side/Bed(QC): 6 Sit to Stand (QC): 6 Chair/Jpy-fp-Fyias Xfer(QC): 6 Toilet Transfer (QC): 6 Does the Patient Walk: Yes Walk 10 feet (QC): 6 Walk 50ft with 2 Turns (QC): 6 Walk 150 ft (QC): 6 1 Step (curb) (QC): 4 PT Plan Problem List Problem List: Activity Tolerance, Functional Strength, Safety, Balance, Gait, Transfer, Bed Mobility, ROM Treatment/Plan Treatment Plan: Continue Plan of Care Treatment Plan: Bed Mobility, Education, Functional Activity Mallika, Functional Strength, Group Therapy, Gait, Safety, Therapeutic Exercise, Transfers Treatment Duration: Sep 29, 2022 Frequency: 6 times per week Estimated Hrs Per Day: .25 hour per day Safety Risks/Education Patient Education: Gait Training, Transfer Techniques Teaching Recipient: Patient Teaching Methods: Demonstration, Discussion Response to Teaching: Verbalize Understanding, Return Demonstration Time Time In: 1037 Time Out: 1052 DATE: Aug 29, 2022 Total Billed Treatment Time: 15 Total Billed Treatment Visit, PARTH KERR PT Aug 29, 2022 14:41
[2022-08-29] MEDS ORDERED: cefTRIAXone IV/IM 1,000 MG in NS (IVPB) 50 ML IV SCH (15:00)
[2022-08-29 15:37] VITALS: BP 98/60
--- NOTE | 2022-08-29 16:08 | Occupational Therapy Eval ---
OT Evaluation-General/PLF Medical Diagnosis Admission Date Aug 28, 2022 at 17:27 Medical Diagnosis: UTI, confusion, falls, hematuria Onset Date: Aug 28, 2022 Therapy Diagnosis Therapy Diagnosis: weakness, unsteady balance Height/Weight Height (Feet): 6 Height (Inches): 1.00 Weight (Pounds): 235 Precautions Precautions/Isolations: Fall Prevention, Standard Precautions Weight Bear Status Weight Bearing Restriction: Full Weight Bearing Referral Physician: Dr. Long Referral Reason: Self Care, Evaluation/Treatment, Strengthening/ROM Medical History Pertinent Medical History: DM, Heart Failure, HTN Additional Medical History 77-year-old male with a history of CHF, c, hypertension, hyperlipidemia, history of V. tach, BPH, neurogenic bladder, chronic hypoxia ranging between 87 to 92% on room air who presents to ED for confusion, falls and hematuria. Patient reports dark urine. Patient straight caths 3 times a day. History of flaccid bladder according to who is his caregiver. Patient fell 3 times at home. Increased confusion typically results secondary to a UTI. Recently treated with Keflex for UTI. Patient did finish. Patient does follow a urologist at [facility]. Patient was seen here in June with similar symptoms diagnosed with UTI. Patient did have 1 episode of diarrhea yesterday without any vomiting. Reviewed History: Yes Social History Home: Single Level Current Living Status: Significant Other Entry Into Home: Stairs Without Railing Steps Into Home: 1 ADL-Prior Level of Function SCALE: Activities may be completed with or without assistive devices. 3-Cakrjassuq-iyjtfuo completes the activity by him/herself with no assistance from a helper. 5-Set-up or Clean-up Assistance-helper sets up or cleans up; patient completes activity. [place] assists only prior to or following the activity. 4-Supervision or Touching Assistance-helper provides verbal cues and/or touching/steadying and/or contact guard assistance as patient completes activity. Assistance may be provided throughout the activity or intermittently. 3-Partial/Moderate Assistance-helper does LESS THAN HALF the effort. [place] lifts, holds or supports trunk or limbs, but provides less than half the effort. 2-Substantial/Maximal Assistance-helper does MORE THAN HALF the effort. [place] lifts or holds trunk or limbs and provides more than half the effort. 5-Pxnfxnkes-yutdfc does ALL the effort. Patient does none of the effort to complete the activity. Or, the assistance of 2 or more helpers is required for the patient to complete the activity. If activity was not attempted, code reason: 7-Patient Refused. 9-Not Applicable-not attempted and the patient did not perform the activity before the current illness, exacerbation or injury. 10-Not Attempted due to Environmental Limitations-(lack of equipment, weather restraints, etc.). 88-Not Attempted due to Medical Conditions or Safety Concerns. ADL PLOF Comments Scar on left forearm s/p accident, scar to LE Self Care: Independent Functional Cognition: Independent DME/Equipment Comments cane Drive Self: Yes OT Current Status Subjective Preferred name "UNIQUE". agrees to OT Pain Numeric Pain Scale: 0-No Pain Mental Status/Objective Patient Orientation: Person, Place (), Time (day, month, year), Situation (had PT earlier) Current Glasses/Contacts: Yes Hand Dominance: Right Upper Extremity ROM BUE ROM WFLS limited left supination Upper Extremity Strength WFLS ADL-Treatment Eating (QC): 6 Oral Hygiene (QC): 5 (bedside or standing w/ AD and SBA) Shower/Bathe Self (QC): 7 Upper Body Dressing (QC): 5 Lower Body Dressing (QC): 4 On/Off Footwear (QC): 5 (supine in bed w/ figure 4 technique) Toileting Hygiene (QC): 5 Education OT Patient Education: Energy conservation, Home exercise program, Modified ADL techniques, Progress toward Goal/Update tx plan, Purpose of tx/functional activities, Reviewed precautions, Rehab process, Safety issues, Transfer techniques, Use of adapted equipment Teaching Recipient: Patient Teaching Methods: Demonstration, Discussion Response to Teaching: Verbalize Understanding, Reinforcement Needed OT Half-Way Goals Half-Way Goals Eating (QC): 6 Oral Hygiene (QC): 6 Toileting Hygiene (QC): 6 Shower/Bathe Self (QC): 6 Upper Body Dressing (QC): 6 Lower Body Dressing (QC): 6 On/Off Footwear (QC): 6 1=Demonstrate adherence to instructed precautions during ADL tasks. 2=Patient will verbalize/demonstrate understanding of assistive devices/m odifications for ADL. 3=Patient will improve strength/tolerance for activity to enable patient to perform ADL's. OT Education/Plan Problem List/Assessment Assessment: Decreased Activ Tolerance, Decreased UE Strength, Impaired Coordination, Impaired Funct Balance, Impaired Self-Care Skills Discharge Recommendations Plan/Recommendations: Continue POC Treatment Plan/Plan of Care Treatment,Training & Education: Yes Patient would benefit from OT for education, treatment and training to promote independence in ADL's, mobility, safety and/or upper extremity function for ADL's. Plan of Care: ADL Retraining, Functional Mobility, Group Exercise/Act as Ind, UE Funct Exercise/Act Treatment Duration: Sep 01, 2022 Frequency: 3 times per week (3-5 times per week) Estimated Hrs Per Day: .25 hour per day Agreement: Yes Rehab Potential: Fair Time Start Time: 13:56 Stop Time: 14:06 DATE: Aug 29, 2022 Total Time Billed (hr/min): 10 Billed Treatment Time EVL 10 min PARESH EVANS OT Aug 29, 2022 16:08
[2022-08-29] MEDS ORDERED: polyethylene glycoL POWDER 17 GM (MIRALAX) PACK PO PRN (16:30)
[2022-08-29] MEDS ORDERED: ACETAMINOPHEN 500 MG TAB (TYLENOL) PO PRN (16:30)
[2022-08-29] MEDS ORDERED: RT-ALBUTEROL SULF 2.5 MG/3 ML PRE-MIX VIAL IH PRN (16:30)
[2022-08-29] MEDS: meTOprolol TARTRATE 25 MG (LOPRESSOR) TABLET PO SCH (17:14)
[2022-08-29] MEDS ORDERED: meTOprolol TARTRATE 50 MG (LOPRESSOR) TAB PO SCH (18:00)
[2022-08-29 20:12] VITALS: BP 98/54
[2022-08-29] MEDS ORDERED: NON-FORMULARY MEDICATION 1 EA EA (Vit C/E/Zn/Coppr/Lutein/Zeaxan (Preservision Areds 2 Sof PO SCH (21:00)
[2022-08-30 00:31] VITALS: BP 119/78
[2022-08-30 03:43] VITALS: BP 119/78
[2022-08-30] MEDS ORDERED: MULTIVIT W/MINERALS TAB (THERAGRAN M) PO SCH (07:00)
[2022-08-30] MEDS ORDERED: ASCORBIC ACID (VIT C) 500 MG TABLET PO SCH (07:00)
[2022-08-30 07:27] VITALS: BP 118/59
[2022-08-30] MEDS ORDERED: NON-FORMULARY MEDICATION 1 EA EA (Ascorbate Calcium (Vitamin C) 500 MG) PO SCH (09:00)
[2022-08-30] MEDS ORDERED: EMPAGLIFLOZIN 10 MG TABLET (JARDIANCE) PO SCH (09:00)
[2022-08-30] MEDS ORDERED: NON-FORMULARY MEDICATION 1 EA EA (Cholecalciferol (Vitamin D3) (Vitamin D3) 10 MCG) PO SCH (09:00)
[2022-08-30] MEDS ORDERED: EMPAGLIFLOZIN 12.5 MG PO SCH (09:00)
[2022-08-30] MEDS ORDERED: ALLOPURINOL 100 MG (ZYLOPRIM) TAB PO SCH (09:00)
[2022-08-30] MEDS ORDERED: ASPIRIN E.C. 81 MG (ECOTRIN) TAB PO SCH (09:00)
[2022-08-30] MEDS ORDERED: NON-FORMULARY MEDICATION 1 EA EA (Cranberry Extract (Cranberry) 500 MG) PO SCH (09:00)
[2022-08-30] MEDS ORDERED: AMIODARONE 200 MG (CORDARONE) TAB PO SCH (09:00)
[2022-08-30] MEDS ORDERED: VITAMIN D3 10 MCG (400 UNITS) TABLET PO SCH (09:00)
[2022-08-30] MEDS: meTOprolol TARTRATE 25 MG (LOPRESSOR) TABLET PO SCH (09:17)
--- NOTE | 2022-08-30 11:11 | Physical Therapy Progress Note ---
Therapy Progress Note Patient declined to get OOB and participate with therapy on this date. Attempted to encourage and educate patient on importance of OOB activity, however, patient continued to refuse. Will attempt tomorrow a.m. 1 ref MATT MUNGUIA PT Aug 30, 2022 11:10
--- NOTE | 2022-08-30 11:40 | Occ Therapy Progress Note ---
Therapy Progress Note Patent refused OT this morning, Patient reports he is walking to bathroom by himself and just got back in bed and he is comfortable. He does not want to be disturbed PARESH EVANS OT Aug 30, 2022 11:40
[2022-08-30 11:52] VITALS: BP 108/65
--- NOTE | 2022-08-30 12:11 | Discharge Inst-Simple/Standard ---
Discharge Inst-Standard Patient Instructions/Follow Up Plan of Care/Instructions/FU: Please continue to take your medications as written. Please follow up with your primary care doctor to follow up this hospital stay. Activity as Tolerated: Yes Discharge Diet: Cardiac Diet Return to The Hospital For: Fever, confusion, weakness, bloody urine, chest pain, shortness of breath, if you feel you are getting worse. JONATHAN RAMOS MD Aug 30, 2022 12:11
[2022-08-30] MEDS ORDERED: CEPH500T PO (12:18)
--- NOTE | 2022-08-30 12:19 | Discharge Summary ---
Diagnosis/Chief Complaint Date of Admission Aug 28, 2022 at 17:27 Date of Discharge Discharge Date: Aug 30, 2022 Admission Diagnosis UTI Primary Care No,Local Physician Discharge Summary Discharge Physical Exam Allergies: Uncoded Allergies: UNKNOWN CHOLESTEROL MED. (Allergy, Unknown, UNKNOWN STATES CAN'T REMEMBER MEDIATION NOR SIDE EFFECT, 07/10/21) Vitals & I&Os Vital Signs Date Time Temp Pulse Resp B/P (MAP) Pulse Ox O2 Delivery O2 Flow Rate FiO2 08/30/22 13:20 36.4 51 18 108/65 90 Room Air 2.00 General Appearance: No Apparent Distress, WD/WN Respiratory: Lungs Clear, No Respiratory Distress Cardiovascular: Regular Rate, Rhythm, No Murmur Gastrointestinal: Normal Bowel Sounds, Soft Neurologic/Psychiatric: Alert, Oriented x3 Hospital Course Patient was admitted to the hospital secondary to patient was admitted to the hospital secondary to urinary tract infection with weakness and confusion. He was treated with IV antibiotics and did well. He was very anxious to discharge home and so was discharged home with pending sensitivities on Keflex. I did follow-up the urine culture which grew Serratia and the sensitivities sensitivities which revealed resistance to cefazolin. I called and spoke with the patient and let him know about this and sent in Levaquin per sensitivities. [facility] as his significant other was hoping to start daily prophylactic antibiotics. These were sent and she actually had the prescription with her but had been told not to start them by the [facility]. The prescription was for Macrobid and seemed appropriate to me though I did advise her to follow-up with them before completing the current course of antibiotics to clarify their instructions. Labs (last 24 hrs) Microbiology 08/28/22 Blood Culture - Preliminary, Resulted No growth 08/28/22 Urine Culture - Final, Complete Serratia marcescens Patient resulted labs reviewed. Pending Labs Discussion & Recommendations Discharge Planning: >30 minutes discharge planning Discharge Home Medications: Active Scripts Active Cephalexin 500 Mg Tablet 500 Mg PO BID 5 Days Reported Vitamin D3 (Cholecalciferol (Vitamin D3)) 10 Mcg (400 Unit) Capsule 10 Mcg PO DAILY Cranberry (Cranberry Extract) 500 Mg Tablet 500 Mg PO DAILY Potassium Chloride 20 Meq Tablet.er 20 Meq PO DAILY PRN Preservision Areds 2 Softgel (Vit C/E/Zn/Coppr/Lutein/Zeaxan) 250MG-90MG Capsule 1 Each PO BID Jardiance (Empagliflozin) 25 Mg Tablet 12.5 Mg PO DAILY TAKES OF A 25MG TAB Docusate Sodium 100 Mg Capsule 100 Mg PO 1600 Amiodarone HCl 200 Mg Tablet 200 Mg PO DAILY Furosemide 40 Mg Tablet 40 Mg PO DAILY PRN TAKE NEEDED FOR WEIGHT GAIN OF 3LB OVERNIGHT OR 5LB IN 1 WEEK, SWELLING OR INCREASED SHORTNESS OF AIR Tramadol HCl 50 Mg Tablet 50 Mg PO TID PRN Miralax (Polyethylene Glycol 3350) 17 Gram Powd.pack 17 Gm PO DAILY PRN Metoprolol Tartrate 50 Mg Tablet 25 Mg PO BID WITH MEALS TAKES OF A 50MG TAB Finasteride 5 Mg Tablet 5 Mg PO 1600 Aspirin EC (Aspirin) 81 Mg Tablet.dr 81 Mg PO DAILY Atorvastatin Calcium 80 Mg Tablet 40 Mg PO HS TAKES OF A 80MG TAB Multivitamins with Minerals (Multivitamin with Minerals) 1 Each Tablet 1 Each PO DAILY Allopurinol 100 Mg Tablet 100 Mg PO DAILY Ventolin Hfa (Albuterol Sulfate) 1 Puff Puff 2 Puff IH QID PRN Tylenol Extra Strength (Acetaminophen) 500 Mg Tablet 1,000 Mg PO Q8H PRN Vitamin C (Ascorbate Calcium) 500 Mg Tablet 500 Mg PO DAILY Instructions to patient/family Please see electronic discharge instructions given to patient. JONATHAN RAMOS MD Aug 30, 2022 12:19
[2022-08-30 13:20] VITALS: BP 108/65
[2022-08-30] MEDS ORDERED: FINASTERIDE (PROSCAR) 5 MG TAB PO SCH (16:00)
[2022-08-30] MEDS ORDERED: DOCUSATE SODIUM 100 MG (COLACE) CAP PO SCH (16:00)
[2022-09-02] MEDS ORDERED: LEVO750T PO (14:32)
== END 2022-08-30 13:28 | disposition home or self-care (01) | DRG 690 ==
LOC: EDUNIT# 14:29 → ER 14:31 → 4TH 17:06 → OBSVTOIN 17:27
PROVIDERS: ADMIT Family Medicine; ATTEND Family Medicine
DX: N39.0 Urinary tract infection, site not specified (principal); I47.20 Ventricular tachycardia, unspecified; I42.9 Cardiomyopathy, unspecified; Z16.19 Resistance to other specified beta lactam antibiotics; I11.0 Hypertensive heart disease with heart failure; I50.9 Heart failure, unspecified; N40.1 Benign prostatic hyperplasia with lower urinary tract symptoms; N31.9 Neuromuscular dysfunction of bladder, unspecified; G80.9 Cerebral palsy, unspecified; E11.9 Type 2 diabetes mellitus without complications; B96.89 Other specified bacterial agents as the cause of diseases classified elsewhere; E78.00 Pure hypercholesterolemia, unspecified; R09.02 Hypoxemia; M10.9 Gout, unspecified; K59.09 Other constipation; R00.1 Bradycardia, unspecified; Z95.810 Presence of automatic (implantable) cardiac defibrillator; Z79.899 Other long term (current) drug therapy; Z79.82 Long term (current) use of aspirin; Z79.84 Long term (current) use of oral hypoglycemic drugs
CPT/HCPCS: 36415; 80053; 81000; 82947; 83605; 85025; 85610; 85730; 87040; 87077; 87088; 87186; 93005

== ENCOUNTER → 2022-08-31 | Outpatient (RCR) | payer OTHER ==
[~2022-08-31] MED LIST changes: +CHOL400C9 PO; +CRAN500T4 PO; +LEVO750T PO
== END | disposition home or self-care (01) ==
LOC: CR3 07-02 11:20
PROVIDERS: ATTEND Internal Medicine Cardiovascular Disease
DX: Z29.8 Encounter for other specified prophylactic measures (principal)

== ENCOUNTER 2022-10-12 09:01 | Outpatient (RCR) | payer OTHER ==
[2022-10-15] MEDS ORDERED: NITR100C10 PO (14:42)
[2022-10-15] MEDS ORDERED: PSYL1PAC10 PO (14:42)
[2022-10-17] MEDS ORDERED: SULF1TAB38 PO (10:52)
== END 2022-10-31 | disposition home or self-care (01) ==
LOC: CR3 09:01
PROVIDERS: ATTEND Internal Medicine Cardiovascular Disease
DX: Z29.8 Encounter for other specified prophylactic measures (principal)

== ENCOUNTER 2022-10-14 18:27 | Inpatient (IN) | payer OTHER ==
[~2022-10-14] VITALS: Ht 183 cm; Wt 101.5 kg
[2022-10-14] MEDS ORDERED: LIDOCAINE UROJET 2% GEL 10 ML PKG TOP ONE (18:45)
[2022-10-14] MEDS ORDERED: RT-Ipratropium/Albuterol NEB 3 ML VIAL INH ONE (19:00)
[2022-10-14] MEDS ORDERED: RT-BUDESONIDE NEBS 0.5 MG/2ML VIAL INH ONE (19:00)
[2022-10-14 19:06] LABS: BASOPHILS % (AUTO) 0 % (0-10); EOSINOPHILS # (AUTO) 0.1 10^3/uL (0.0-0.3); EOSINOPHILS % (AUTO) 1 % (0-10); HEMATOCRIT 46 % (40-54); HEMOGLOBIN 15.6 g/dL (13.3-17.7); LYMPHOCYTES # (AUTO) 1.3 10^3/uL (1.0-4.0); LYMPHOCYTES % (AUTO) 16 % (12-44); MEAN CORPUSCULAR HEMOGLOBIN 35 pg (25-34); MEAN CORPUSCULAR HGB CONC 34 g/dL (32-36); MEAN CORPUSCULAR VOLUME 104 fL (80-99); MEAN PLATELET VOLUME 10.5 fL (9.0-12.2); MONOCYTES # (AUTO) 0.8 10^3/uL (0.0-1.0); MONOCYTES % (AUTO) 11 % (0-12); NEUTROPHILS # (AUTO) 5.7 10^3/uL (1.8-7.8); NEUTROPHILS % (AUTO) 72 % (42-75); PLATELET COUNT 159 10^3/uL (130-400); WHITE BLOOD COUNT 7.9 10^3/uL (4.3-11.0)
[2022-10-14 19:15] LABS: INR 1.2 (0.8-1.4); PROTHROMBIN TIME PATIENT 15.7 SEC (12.2-14.7)
[2022-10-14 19:19] LABS: ABG BASE EXCESS -4.2 MMOL/L (-2.5-2.5); ABG OXYGEN SATURATION 94 % (94-100); ABG PCO2 31 MMHG (35-45); ABG PH 7.42 (7.37-7.43); ABG PO2 66 MMHG (79-93); ABG TCO2 20.4 MMOL/L (21.0-31.0)
[2022-10-14 19:22] LABS: INSPIRED O2 3 LITERS; VENTILATOR NO
[2022-10-14 19:24] LABS: ERYTHROCYTE SEDIMENTATION RATE 17 MM/HR (0-30)
[2022-10-14 19:26] LABS: FIBRIN DEGRADATION PRODUCTS 0.53 UG/ML (0.00-0.49)
[2022-10-14 19:29] LABS: ALBUMIN 3.8 GM/DL (3.2-4.5); CHLORIDE 102 MMOL/L (98-107); POTASSIUM 4.1 MMOL/L (3.6-5.0); SODIUM 134 MMOL/L (135-145)
[2022-10-14 19:30] LABS: CALCIUM 9.1 MG/DL (8.5-10.1)
[2022-10-14 19:31] LABS: AMMONIA 28 UMOL/L (11-32); GLUCOSE 142 MG/DL (70-105); TOTAL PROTEIN 8.5 GM/DL (6.4-8.2)
[2022-10-14 19:32] LABS: CARBON DIOXIDE 21 MMOL/L (21-32)
[2022-10-14 19:33] LABS: BILIRUBIN,TOTAL 1.7 MG/DL (0.1-1.0)
[2022-10-14 19:35] LABS: ALKALINE PHOSPHATASE 149 U/L (40-136); CREATININE SERUM 1.47 MG/DL (0.60-1.30); GFR ESTIMATED 49
[2022-10-14 19:36] LABS: BUN/CREATININE RATIO 20
[2022-10-14 19:38] LABS: ALANINE AMINOTRANSFERASE 26 U/L (0-55); MAGNESIUM 2.1 MG/DL (1.6-2.4)
[2022-10-14 19:39] LABS: CREATINE KINASE 59 U/L (30-200); LIPASE 55 U/L (8-78)
[2022-10-14 19:47] LABS: CREATINE KINASE MB 3.1 NG/ML (<6.6)
[2022-10-14 19:59] LABS: TSH (THYROID ANALYZER) 1.97 UIU/ML (0.35-4.94)
--- NOTE | 2022-10-14 20:06 | Diagnostic Imaging Report ---
EXAM: CHEST 1 VIEW, AP/PA ONLY INDICATION: Weakness. Hypoxia. COMPARISON: 06/07/2022. FINDINGS: Cardiomegaly with normal central pulmonary vascularity. AICD. No focal pulmonary opacity. No pleural effusion or pneumothorax. No acute osseous findings. IMPRESSION: Stable cardiomegaly with normal central pulmonary vascularity. No acute cardiopulmonary findings. Dictated by: Dictated on workstation # [id number]
[2022-10-14 20:10] LABS: CLARITY,URINE CLEAR; COLOR,URINE YELLOW
[2022-10-14 20:11] LABS: BACTERIA,URINE FEW /HPF; BILIRUBIN,URINE NEGATIVE (NEGATIVE); GLUCOSE, URINE (UA) 3+ (NEGATIVE); HYALINE CASTS, URINE 0-2 /LPF; KETONES,URINE NEGATIVE (NEGATIVE); LEUKOCYTE ESTERASE ,URINE 1+ (NEGATIVE); NITRITE,URINE NEGATIVE (NEGATIVE); PROTEIN,URINE TRACE (NEGATIVE)
--- NOTE | 2022-10-14 20:16 | ED General ---
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 ) History of Present Illness Date Seen by Provider: Oct 14, 2022 Time Seen by Provider: 18:36 Initial Comments PT ARRIVES VIA POV , NEEDS WHEELCHAIR ON ARRIVAL--ARRIVES WITH A LAMP CLEANER. HE ALSO ARRIVES WITH A VERY LARGE BAG PT HAS HAD GENERALIZED WEAKNESS FOR THE LAST COUPLE OF DAYS--NEEDS ASSIST FOR TRANSFER FROM WHEELCHAIR TO ER CART NO PAIN ANYWHERE SLIGHT SHORTNESS OF BREATH--"NO MORE THAN NORMAL" PER P[T NO CHEST PAIN NO NAUSEA/VOMITING/DIARRHEA NO FEVER PT HAS BEEN EATING AND DRINKING NORMALLY PT HAS HAD TO STRAIGHT CATH 2-3 TIMES A DAY FOR SEVERAL MONTHS. DUE TO ENLARGED PROSTATE. DENIES PROSTATE CANCER HE TAKES MACROBID ONCE A DAY FOR CHRONIC UTI'S HE WAS ADMITTED 08/28/22 FOR UTI PT HAS CHRONIC POOR BALANCE DUE TO HYDROCEPHALUS HE HAS PACEMAKER/DEFIBRILLATOR IN PLACE HE HAS COPD, HAS ALBUTEROL AT HOME BUT HAS NOT USED IT TODAY. LAMP CLEANER REPORTS THAT HIS NORMAL O2 SAT IS 88-91% ON ROOM AIR. HE DOES NOT HAVE HOME O2 HE TAKES LASIX PRN, BUT HAS NOT TAKEN ANY RECENTLY. IS NOT KNOWN IF HE HAS HAD COVID/FLU VACCINES PCP: RESHMA CALHOUN. 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 (Allergy, Unknown, UNKNOWN STATES CAN'T REMEMBER MEDIATION NOR SIDE EFFECT, 07/10/21) Patient Home Medication List Home Medication List Reviewed: Yes Acetaminophen (Tylenol Extra Strength) 500 Mg Tablet, 1,000 MG PO Q8H PRN for PAIN-MILD (1-4) OR TEMPATURE, (Reported) Entered as Reported by: GIO CARLOS on 05/19/21 6174 Last Action: Held Albuterol Sulfate (Ventolin Hfa) 1 Puff Puff, 2 PUFF IH QID PRN for SHORTNESS OF BREATH, (Reported) Entered as Reported by: GIO CARLOS on 05/19/21 2548 Last Action: Held Allopurinol (Allopurinol) 100 Mg Tablet, 100 MG PO HS, (Reported) Entered as Reported by: GIO CARLOS on 05/19/21 154 Last Action: Continued Amiodarone HCl (Amiodarone HCl) 200 Mg Tablet, 200 MG PO DAILY, (Reported) Entered as Reported by: GIO CARLOS on 06/08/22 113 Last Action: Continued Ascorbate Calcium (Vitamin C) 500 Mg Tablet, 500 MG PO DAILY, (Reported) Entered as Reported by: GIO CARLOS on 05/19/211547 Last Action: Held Aspirin (Aspirin EC) 81 Mg Tablet.dr, 81 MG PO DAILY, (Reported) Entered as Reported by: GIO CARLOS on 08/11/21 154 Last Action: Reviewed Atorvastatin Calcium (Atorvastatin Calcium) 80 Mg Tablet, 40 MG PO HS, (Reported) Entered as Reported by: GIO CARLOS on 06/09/21 1435 Last Action: Continued Cholecalciferol (Vitamin D3) (Vitamin D3) 10 Mcg (400 Unit) Capsule, 10 MCG PO DAILY, (Reported) Entered as Reported by: GIO CARLOS on 08/29/22 1333 Last Action: Held Cranberry Extract (Cranberry) 500 Mg Tablet, 500 MG PO DAILY, (Reported) Entered as Reported by: GIO CARLOS on 08/29/22 133 Last Action: Held Docusate Sodium (Docusate Sodium) 100 Mg Capsule, 100 MG PO 1600, (Reported) Entered as Reported by: GIO CARLOS on 06/08/22 113 Last Action: Held Empagliflozin (Jardiance) 25 Mg Tablet, 12.5 MG PO DAILY, (Reported) Entered as Reported by: GIO CARLOS on 06/08/22 113 Last Action: Held Finasteride (Finasteride) 5 Mg Tablet, 5 MG PO 1600, (Reported) Entered as Reported by: GIO CARLOS on 08/11/21 154 Last Action: Held Furosemide (Furosemide) 40 Mg Tablet, 40 MG PO DAILY PRN for FLUID RETENTION, (Reported) Entered as Reported by: GIO CARLOS on 08/11/21 1549 Last Action: Held Metoprolol Tartrate (Metoprolol Tartrate) 50 Mg Tablet, 25 MG PO 0800,1600, (Reported) Entered as Reported by: GIO CARLOS on 08/11/211540 Last Action: Reviewed Multivitamin with Minerals (Multivitamins with Minerals) 1 Each Tablet, 1 EACH PO DAILY, (Reported) Entered as Reported by: GIO CARLOS on 05/19/21 154 Last Action: Held Nitrofurantoin Monohyd/M-Cryst (Nitrofurantoin Dickens-Mcr 100 mg) 100 Mg Capsule, 100 MG PO 1200, (Reported) Entered as Reported by: GIO CARLOS on 10/15/22 144 Last Action: Held Polyethylene Glycol 3350 (Miralax) 17 Gram Powd.pack, 17 GM PO DAILY PRN for CONSTIPATION-2ND LINE, (Reported) Entered as Reported by: GIO CARLOS on 08/11/211540 Last Action: Held Potassium Chloride (Potassium Chloride) 20 Meq Tablet.er, 20 MEQ PO DAILY PRN for WHEN TAKING FUROSEMIDE, (Reported) Entered as Reported by: GIO CARLOS on 06/08/22 113 Last Action: Held Psyllium Husk (with Sugar) (Metamucil Packet) 3.4 Gram Powd.pack, 3.4 GM PO DAILY PRN for CONSTIPATION, (Reported) Entered as Reported by: GIO CARLOS on 10/15/22 144 Last Action: Held Sulfamethoxazole/Trimethoprim (Bactrim Ds Tablet) 1 Each Tablet, 1 EA PO BID WITH MEALS Prescribed by: MEKHI GIFFORD on 10/17/22 1052 Vit C/E/Zn/Coppr/Lutein/Zeaxan (Preservision Areds 2 Softgel) 250MG-90MG Capsule , 1 EACH PO BID, (Reported) Entered as Reported by: GIO CARLOS on 06/08/22 113 Last Action: Held Review of Systems Review of Systems Constitutional: see HPI, malaise, weakness EENTM: no symptoms reported Respiratory: see HPI Cardiovascular: no symptoms reported Gastrointestinal: no symptoms reported Genitourinary: see HPI Musculoskeletal: no symptoms reported Skin: no symptoms reported Psychiatric/Neurological: See HPI Hematologic/Lymphatic: No Symptoms Reported Immunological/Allergic: no symptoms reported Past Qypxgva-Ngwjzf-Ourvzh Hx Patient Social History Tobacco Use?: No Substance use?: No Alcohol Use?: No Immunizations Up To Date First/Initial COVID19 Vaccinat: unk Second COVID19 Vaccination Eugenio: 2020 Third COVID19 Vaccination Date: 2021 Past Medical History Surgery/Hospitalization HX: HEART FAILURE DIABETIC GOUT UROLOGY "ISSUES" Surgeries: Yes (PACEMAKER/DEF, ANAL FISTULA, ) Defibrillator, Orthopedic, Pacemaker, Rectal Respiratory: Yes COPD Cardiac: Yes (CARDIOMYOPATHY, AVRD; V-TACH) Cardiomyopathy, Chronic Edema/Swelling, High Cholesterol, Hypertension, Irregular Heartbeat Neurological: Yes (HYDROCEPHALUS, POOR BALANCE) Cerebral Palsy Genitourinary: Yes (SELF CATHS) Benign Prostatic Hyperpl, Kidney Infection, Prostate Problems, Bladder Infection, UTI-Chronic Gastrointestinal: Yes Chronic Constipation Musculoskeletal: Yes (POOR BALANCE) Arthritis, Gout Endocrine: Yes Diabetes, Non-Insulin dep HEENT: No Cancer: No Psychosocial: No Integumentary: No Blood Disorders: No Family Medical History No Pertinent Family Hx Physical Exam Vital Signs Vital Signs - First Documented 10/14/22 10/14/22 18:42 19:39 Temp 36.9 Pulse 54 Resp 18 B/P (MAP) 126/79 (95) Pulse Ox 92 O2 Delivery Nasal Cannula O2 Flow Rate 3.00 Capillary Refill : Less Than 3 Seconds Height, Weight, BMI Height: 6'1.00" Weight: 235lbs. oz. [id number]; 27.00 BMI Method:Stated General Appearance: No Apparent Distress, WD/WN, Other (GENERALIZED WEAKNESS, PT IS UNABLE TO SIT ON HIS OWN--SLOWLY FALLS OVER OR BACK IF HE IS LEFT UNATTENDED. NEEDS FULL ASSSIT TO TRANSFER AND TO MOVE IN BED./ SLOW MENTATION) HEENT: Normal ENT Inspection Neck: Normal Inspection Respiratory: Normal Breath Sounds, No Accessory Muscle Use, No Respiratory Distress, Other (SHALLOW BREATHING BUT NOT LABORED) Cardiovascular: Regular Rate, Rhythm, No JVD, No Murmur Gastrointestinal: Non Tender, Soft Extremity: Pedal Edema (TRACE EDEMA ON LEFT. NO EDEMA ON RIGHT. CHRONIC VENOUS STASIS CHANGES TO BILATERAL LOWER LEGS. GOOD CAP REFILL. ) Neurologic/Psychiatric: Alert, Oriented x3, No Motor/Sensory Deficits, performance improvement specialist II- XII Norm as Tested, Other (FLAT AFFECT. ) Skin: Normal Color, Warm/Dry Focused Exam Lactate Level 10/14/22 18:51: Lactic Acid Level 1.39 Lactic Acid Level Laboratory Tests Test 10/14/22 18:51 Lactic Acid Level 1.39 MMOL/L (0.50-2.00) Progress/Results/Core Measures Suspected Sepsis SIRS Temperature: Pulse: 54 Respiratory Rate: 18 Blood Pressure 126 /79 Mean: 95 10/14/22 18:51: Lactic Acid Level 1.39 Laboratory Tests 10/14/22 18:51: INR Comment 1.2 Results/Orders Lab Results Laboratory Tests Test 10/14/22 18:51 10/14/22 18:55 10/14/22 19:10 10/14/22 19:49 Range/Units White Blood Count 7.9 4.3-11.0 10^3/uL Red Blood Count 4.43 4.30-5.52 10^6/uL Hemoglobin 15.6 13.3-17.7 g/dL Hematocrit 46 40-54 % Mean Corpuscular Volume 104 H 80-99 fL Mean Corpuscular Hemoglobin 35 H 25-34 pg Mean Corpuscular Hemoglobin Concent 34 32-36 g/dL Red Cell Distribution Width 14.4 10.0-14.5 % Platelet Count 159 130-400 10^3/uL Mean Platelet Volume 10.5 9.0-12.2 fL Immature Granulocyte % (Auto) 0 % Neutrophils (%) (Auto) 72 42-75 % Lymphocytes (%) (Auto) 16 12-44 % Monocytes (%) (Auto) 11 0-12 % Eosinophils (%) (Auto) 1 0-10 % Basophils (%) (Auto) 0 0-10 % Neutrophils # (Auto) 5.7 1.8-7.8 10^3/uL Lymphocytes # (Auto) 1.3 1.0-4.0 10^3/uL Monocytes # (Auto) 0.8 0.0-1.0 10^3/uL Eosinophils # (Auto) 0.1 0.0-0.3 10^3/uL Basophils # (Auto) 0.0 0.0-0.1 10^3/uL Immature Granulocyte # (Auto) 0.0 0.0-0.1 10^3/uL Erythrocyte Sedimentation Rate 17 0-30 MM/HR Prothrombin Time 15.7 H 12.2-14.7 SEC INR Comment 1.2 0.8-1.4 Activated Partial Thromboplast Time 33 24-35 SEC D-Dimer 0.53 H 0.00-0.49 UG/ML Sodium Level 134 L 135-145 MMOL/L Potassium Level 4.1 3.6-5.0 MMOL/L Chloride Level 102 98-107 MMOL/L Carbon Dioxide Level 21 21-32 MMOL/L Anion Gap 11 5-14 MMOL/L Blood Urea Nitrogen 30 H 7-18 MG/DL Creatinine 1.47 H 0.60-1.30 MG/DL Estimat Glomerular Filtration Rate 49 BUN/Creatinine Ratio 20 Glucose Level 142 H 70-105 MG/DL Lactic Acid Level 1.39 0.50-2.00 MMOL/L Calcium Level 9.1 8.5-10.1 MG/DL Corrected Calcium 9.3 8.5-10.1 MG/DL Magnesium Level 2.1 1.6-2.4 MG/DL Total Bilirubin 1.7 H 0.1-1.0 MG/DL Aspartate Amino Transf (AST/SGOT) 29 5-34 U/L Alanine Aminotransferase (ALT/SGPT) 26 0-55 U/L Alkaline Phosphatase 149 H 40-136 U/L Ammonia 28 11-32 UMOL/L Total Creatine Kinase 59 30-200 U/L Creatine Kinase MB 3.1 <6.6 NG/ML Myoglobin 82.6 10.0-92.0 NG/ML Troponin I 0.148 H <0.028 NG/ML C-Reactive Protein High Sensitivity 3.50 H 0.00-0.50 MG/DL B-Type Natriuretic Peptide 893.5 H <100.0 PG/ML Total Protein 8.5 H 6.4-8.2 GM/DL Albumin 3.8 3.2-4.5 GM/DL Lipase 55 8-78 U/L [facility] [place] Testing 1.97 0.35-4.94 UIU/ML Serum Alcohol < 10 <10 MG/DL Influenza Type A (RT-PCR) Not Detected Not Detecte Influenza Type B (RT-PCR) Not Detected Not Detecte SARS-CoV-2 RNA (RT-PCR) Not Detected Not Detecte Blood Gas Puncture Site LEFT RADIAL Blood Gas Patient Temperature UNKNOWN Arterial Blood pH 7.42 7.37-7.43 Arterial Blood Partial Pressure CO2 31 L 35-45 MMHG Arterial Blood Partial Pressure O2 66 L 79-93 MMHG Arterial Blood HCO3 20 L 23-27 MMOL/L Arterial Blood Total CO2 20.4 L 21.0-31.0 MMOL/L Arterial Blood Oxygen Saturation 94 94-100 % Arterial Blood Base Excess -4.2 L -2.5-2.5 MMOL/L Roland Test UNKNOWN Blood Gas Ventilator Setting NO Blood Gas Inspired Oxygen 3 LITERS Urine Color YELLOW Urine Clarity CLEAR Urine pH 5.0 5-9 Urine Specific [place] 1.010 L 1.016-1.022 Urine Protein TRACE H NEGATIVE Urine Glucose (UA) 3+ H NEGATIVE Urine Ketones NEGATIVE NEGATIVE Urine Nitrite NEGATIVE NEGATIVE Urine Bilirubin NEGATIVE NEGATIVE Urine Urobilinogen 1.0 < = 1.0 MG/DL Urine Leukocyte Esterase 1+ H NEGATIVE Urine RBC (Auto) NEGATIVE NEGATIVE Urine RBC NONE /HPF Urine WBC 10-25 H /HPF Urine Crystals NONE /LPF Urine Bacteria FEW H /HPF Urine Casts PRESENT /LPF Urine Hyaline Casts 0-2 H /LPF Urine Mucus SMALL H /LPF Urine Culture Indicated YES Urine Opiates Screen NEGATIVE NEGATIVE Urine Oxycodone Screen NEGATIVE NEGATIVE Urine Methadone Screen NEGATIVE NEGATIVE Urine Propoxyphene Screen NEGATIVE NEGATIVE Urine Barbiturates Screen NEGATIVE NEGATIVE Ur Tricyclic Antidepressants Screen NEGATIVE NEGATIVE Urine Phencyclidine Screen NEGATIVE NEGATIVE Urine Amphetamines Screen NEGATIVE NEGATIVE Urine Methamphetamines Screen NEGATIVE NEGATIVE Urine Benzodiazepines Screen NEGATIVE NEGATIVE Urine Cocaine Screen NEGATIVE NEGATIVE Urine Cannabinoids Screen NEGATIVE NEGATIVE Micro Results Microbiology 10/14/22 Urine Culture - Final, Complete NO GROWTH 10/14/22 Blood Culture - Preliminary, Resulted No growth 10/14/22 Blood Culture - Preliminary, Resulted No growth My Orders Orders - WYATT VALDEZ DO Ed Iv/Invasive Line Start (10/14/22 18:35) Ekg Tracing (10/14/22 18:35) Monitor-Rhythm Ecg Trace Only (10/14/22 18:35) Cbc With Automated Diff (10/14/22 18:35) Comprehensive Metabolic Panel (10/14/22 18:35) Magnesium (10/14/22 18:35) Protime With Inr (10/14/22 18:35) Partial Thromboplastin Time (10/14/22 18:35) Thyroid Analyzer (10/14/22 18:35) Ua Culture If Indicated (10/14/22 18:35) Troponin I Shimon (10/14/22 18:35) Chest 1 View, Ap/Pa Only (10/14/22 18:35) Covid 19 Inhouse Test (10/14/22 18:35) Influenza A And B By Pcr (10/14/22 18:35) Catheter(Urinary) Insert & Ass 03,15 (10/14/22 18:41) O2 (10/14/22 18:41) Alcohol (10/14/22 18:41) Ammonia (10/14/22 18:41) Bnp Shimon (10/14/22 18:41) Creatine Kinase (10/14/22 18:41) Creatine Kinase Mb (10/14/22 18:41) Hs C Reactive Protein (10/14/22 18:41) Fibrin Degradation Products (10/14/22 18:41) Drug Screen Stat (Urine) (10/14/22 18:41) Lipase (10/14/22 18:41) Blood Culture (10/14/22 18:41) Erythrocyte Sedimentation Rate (10/14/22 18:41) Myoglobin Serum (10/14/22 18:41) Lidocaine 2% (Urojet) (Lidocaine 2% (Uro (10/14/22 18:45) Lactic Acid Analyzer (10/14/22 18:41) Arterial Blood Gas (10/14/22 19:10) Ipratropium/Albuterol Inh Soln (Ipratrop (10/14/22 19:00) Budesonide Inhalation Solution (Budesoni (10/14/22 19:00) Rt Request For Service (10/14/22 18:57) Svn Small Volume Nebulizer (10/14/22 18:57) Svn Small Volume Nebulizer (10/14/22 18:57) Urine Culture (10/14/22 19:49) Cefepime Injection (Cefepime Injection) (10/14/22 20:30) Aspirin Chewable Tablet (Aspirin Chewabl (10/14/22 20:30) Enoxaparin Injection (Enoxaparin Injecti (10/14/22 20:30) Clopidogrel Tablet (Clopidogrel Tablet) (10/14/22 20:30) Ed Iv/Invasive Line Start (10/14/22 20:29) Ns Iv 1000 Ml (Sodium Chloride 0.9%) (10/14/22 20:30) Medications Given in ED Vital Signs/I&O 10/14/22 10/14/22 10/14/22 18:42 19:39 22:29 Temp 36.9 Pulse 54 53 Resp 18 27 B/P (MAP) 126/79 (95) 103/66 Pulse Ox 92 93 94 O2 Delivery Nasal Cannula Nasal Cannula O2 Flow Rate 3.00 Capillary Refill : Less Than 3 Seconds Blood Pressure Mean: 95 Progress Note : Progress Note VITALS ON ARRIVAL: GEMP 36.9, HR 54, RR 18, BP 126/79, O2 SAT 84-86% ON ROOM AIR. UP TO 94% ON 3L/NC GIVEN: -LOVENOX -ASPIRIN -PLAVIX -IV FLUIDS -ANTIBIOTICS NO DETERIORATION IN PT'S CONDITION DURING ER STAY PT HAD NO COMPLAINTS PT SITTING QUIETLY AND READING A BOOK THROUGHOUT ENTIRE ER STAY LABS: -CBC UNREMARKABLE -CMP NA 134, K 4.1, CO2 21, ANION GAP 11, BUN 30, CR 1.47, GLU 142, LIPASE 55 -TROPONIN 0.148 -BNP 813 -COAGULATION STUDIES PT 15.7, PTT 33, INR 1.2, D-DIMER 0.52 -ABG PH 7.42, PCO2 31, PO2 66, O2 SAT 94% ON 3L -COVID/FLU NEGATIVE. -UA WITH 1+ LEUKOCYTES, 10-25, WBC, FEW BACTERIA, 3+ GLUCOSE, TRACE PROTEIN EKG IS UNCHANGED. CXR IS UNREMARKABLE NO DETERIORATION IN PT'S CONDITION DURING ER STAY PT HAD NO COMPLAINTS DURING ER STAY REVIEWED PRIOR RECORDS INCLUDING ER VISITS AND ADMITS/H&P'S/CONSULTS/DISCHARGE SUMMARIES, TESTS/PROCEDURES DISCUSSED TEST RESULTS WITH PT AND FAMILY AND ARE AGREEABLE TO ADMIT. ECG Initial ECG Impression Date: Oct 14, 2022 Initial ECG Impression Time: 18:52 Initial ECG Rate: 53 Initial ECG Rhythm: S.Torito (RBBB) Initial ECG Intervals NM 246 QRS 141 QT/QTC 260/244 Initial ECG Impression: Nonspecific Changes, 1st Degree AV Block Initial ECG Comparisson: Unchanged Comment INTERPRETED BY ME Diagnostic Imaging Comments CXR--PER RADIOLOGIST REPORT AT 2012 FINDINGS: Cardiomegaly with normal central pulmonary vascularity. AICD. No focal pulmonary opacity. No pleural effusion or pneumothorax. No acute osseous findings. IMPRESSION: Stable cardiomegaly with normal central pulmonary vascularity. No acute cardiopulmonary findings. Reviewed: Reviewed by Me Departure Communication (Admissions) 2015--SPOKE WITH DR. RAMOS, HOSPITALIST. ACCEPTS PT FOR ADMIT 2020--SPOKE WITH DR. CARRASCO, [facility] TEACHER. HE WILL SEE PT IN CONSULT. RECOMMENDATIONS NOTED. Impression Primary Impression: Non-ST elevation MS (NSTEMI) Additional Impressions: COPD (chronic obstructive pulmonary disease) Acute on chronic respiratory failure UTI (urinary tract infection) CHRONIC URINARY RETENTION Acute kidney injury Urinary retention due to benign prostatic hyperplasia SEPSIS Diabetes mellitus Disposition: ADMITTED INPATIENT Condition: Stable Admissions Decision to Admit Reason: Admit from ER (General) Decision to Admit/Date: Oct 14, 2022 Time/Decision to Admit Time: 20:20 Departure-Patient Inst. Referrals: NO,LOCAL PHYSICIAN (PCP/Family) Primary Care Physician Scripts Sulfamethoxazole/Trimethoprim (Bactrim Ds Tablet) 1 Each Tablet 1 EA PO BID WITH MEALS for 7 Days, #14 TAB Prov: MEKHI GIFFORD MD 10/17/22 WYATT VALDEZ DO Oct 14, 2022 20:15
[2022-10-14 20:23] LABS: AMPHETAMINE SCREEN, URINE NEGATIVE (NEGATIVE); BARBITURATE SCREEN URINE NEGATIVE (NEGATIVE); BENZODIAZEPINES SCREEN URINE NEGATIVE (NEGATIVE); CANNABINOID SCREEN, URINE NEGATIVE (NEGATIVE); COCAINE SCREEN URINE NEGATIVE (NEGATIVE); METHADONE STAT NEGATIVE (NEGATIVE); OPIATE SCREEN URINE NEGATIVE (NEGATIVE); OXYCODONE STAT NEGATIVE (NEGATIVE); PROPOXYPHENE STAT NEGATIVE (NEGATIVE); TRICYCLIC ANTIDEPRESSANTS SCRE NEGATIVE (NEGATIVE)
[2022-10-14] MEDS ORDERED: ENOXAPARIN 100 MG/1 ML SYRINGE SC ONE (20:30)
[2022-10-14] MEDS ORDERED: NS IV 1000 ML 1,000 ML IV SCH (20:30)
[2022-10-14] MEDS ORDERED: ASPIRIN 81 MG CHEWABLE TABLET PO ONE (20:30)
[2022-10-14] MEDS ORDERED: CLOPIDOGREL 300 MG TABLET PO ONE (20:30)
[2022-10-14] MEDS ORDERED: CEFEPIME INJECTION 1,000 MG in NS (IVPB) 50 ML 50 ML IV ONE (20:30)
[2022-10-14 23:00] VITALS: BP 149/93
[2022-10-14 23:15] VITALS: BP 120/79
[2022-10-14] MEDS ORDERED: PATIENT MAY USE OWN MEDS, ALL PO SCH (23:15)
[2022-10-14 23:30] VITALS: BP 150/85
[2022-10-14 23:37] VITALS: BP 126/79
[2022-10-14] MEDS ORDERED: RT-ALBUTEROL SULF 2.5 MG/3 ML PRE-MIX VIAL INH PRN (23:45)
[2022-10-15] VITALS (10 sets, daily range): BP systolic 95–167; BP diastolic 57–113
[2022-10-15] MEDS ORDERED: ONDANSETRON 4 MG/2 ML (SDV) Z0FRAN IVP PRN
[2022-10-15] MEDS ORDERED: morphine INJ 4 MG/ML 1 ML (VIAL/SYRINGE) IV PRN
[2022-10-15] MEDS ORDERED: NITROGLYCERIN 0.4 MG SL TABLETS BTL 25'S SL PRN
[2022-10-15] MEDS: NS IV 1000 ML 1,000 ML IV SCH ×4 (00:13→21:29)
[2022-10-15] MEDS: CEFEPIME 1,000 MG/NS 50 ML IVPB IV SCH ×6 (05:06→21:28)
[2022-10-15 05:24] LABS: BASOPHILS % (AUTO) 1 % (0-10); EOSINOPHILS % (AUTO) 1 % (0-10); HEMATOCRIT 43 % (40-54); HEMOGLOBIN 14.6 g/dL (13.3-17.7); LYMPHOCYTES % (AUTO) 17 % (12-44); MEAN CORPUSCULAR HEMOGLOBIN 35 pg (25-34); MEAN CORPUSCULAR HGB CONC 34 g/dL (32-36); MEAN CORPUSCULAR VOLUME 105 fL (80-99); MEAN PLATELET VOLUME 11.3 fL (9.0-12.2); MONOCYTES # (AUTO) 0.3 10^3/uL (0.0-1.0); MONOCYTES % (AUTO) 6 % (0-12); NEUTROPHILS # (AUTO) 4.5 10^3/uL (1.8-7.8); NEUTROPHILS % (AUTO) 75 % (42-75); PLATELET COUNT 148 10^3/uL (130-400); WHITE BLOOD COUNT 5.9 10^3/uL (4.3-11.0)
[2022-10-15] MEDS: ACETAMINOPHEN 500 MG TABLET PO PRN ×3 (05:24→19:57)
[2022-10-15] MEDS: inSUlin ASPART 1 UNIT/0.01 ML (PER UNIT) SC SCH ×4 (05:24→21:20)
[2022-10-15 05:25] LABS: ALBUMIN 3.3 GM/DL (3.2-4.5)
[2022-10-15 05:27] LABS: CALCIUM 8.7 MG/DL (8.5-10.1)
[2022-10-15 05:28] LABS: TOTAL PROTEIN 7.5 GM/DL (6.4-8.2)
[2022-10-15 05:29] LABS: BILIRUBIN,TOTAL 1.1 MG/DL (0.1-1.0)
[2022-10-15 05:31] LABS: CREATININE SERUM 1.4 MG/DL (0.60-1.30)
--- NOTE | 2022-10-15 08:03 | Consultation-Cardiology ---
HPI-Cardiology Cardiology Consultation: Date of Consultation 10/15/22 Time Seen by a Provider: 08:15 Date of Admission 10-14-22 Attending Physician No,Local Physician Admitting Physician Admitting Physician: Cary Long MD Attending Physician: Monserrat Carrasquillo MD Consulting Physician Anna Rivera MD HPI: Chief Complaint: Elevated troponin Mr. Ashton is a 77 yr old male admitted to [facility] from the ED with increasing weakness over the course of the last several weeks. He reports he was seen in the ED approx 2 weeks ago d/t hematuria. He was given abx which he completed. He has a neurogenic bladder and therefore he has to straight cath his urinary bladder in order to urinate. He reports increasing freq and urge. He denies any CP, palpitations, syncope, near syncope, LE swelling, n/v/d. He has chronic mild dyspnea which he feels is unchanged. He denies any LE swelling. Review of Systems-Cardiology Review of Systems Constitutional: No chills, No fever; malaise, tiredness Eyes: No vision change Ears/Nose/Throat: No recent hearing loss Respiratory: As described under HPI Cardiovascular: As described under HPI Gastrointestinal: As described under HPI Genitourinary: As described under HPI Musculoskeletal: no symptoms reported Skin: No rash on exposed areas, No ulcerations on exposed areas Psychiatric/Neurological: No anxiety, No depression, No seizure, No focal weakness, No syncope Hematologic: No bleeding abnormalities DUL-[id number]-Mnojvt Hx Patient Social History Smoking Status: Former Smoker Alcohol Use?: Yes Pt feels they are or have been: No Immunizations Up To Date Date of Influenza Vaccine: Jan 02, 2021 Past Medical History PMH As described under Assessment. Family Medical History Family Medical History: His father had arrhythmogenic right ventricular dysplasia. Allergies and Home Medications Allergies Uncoded Allergies: UNKNOWN CHOLESTEROL MED. (Allergy, Unknown, UNKNOWN STATES CAN'T REMEMBER MEDIATION NOR SIDE EFFECT, 07/10/21) Patient Home Medication List Acetaminophen (Tylenol Extra Strength) 500 Mg Tablet, 1,000 MG PO Q8H PRN for PAIN-MILD (1-4) OR TEMPATURE, (Reported) Entered as Reported by: GIO CARLOS on 05/19/21 8783 Last Action: Reviewed Albuterol Sulfate (Ventolin Hfa) 1 Puff Puff, 2 PUFF IH QID PRN for SHORTNESS OF BREATH, (Reported) Entered as Reported by: GIO CARLOS on 05/19/21 154 Last Action: Reviewed Allopurinol (Allopurinol) 100 Mg Tablet, 100 MG PO HS, (Reported) Entered as Reported by: GIO CARLOS on 05/19/211547 Last Action: Reviewed Amiodarone HCl (Amiodarone HCl) 200 Mg Tablet, 200 MG PO DAILY, (Reported) Entered as Reported by: GIO CARLOS on 06/08/22 113 Last Action: Reviewed Ascorbate Calcium (Vitamin C) 500 Mg Tablet, 500 MG PO DAILY, (Reported) Entered as Reported by: GIO CARLOS on 05/19/211547 Last Action: Reviewed Aspirin (Aspirin EC) 81 Mg Tablet.dr, 81 MG PO DAILY, (Reported) Entered as Reported by: GIO CARLOS on 08/11/21 154 Last Action: Reviewed Atorvastatin Calcium (Atorvastatin Calcium) 80 Mg Tablet, 40 MG PO HS, (Reported) Entered as Reported by: GIO CARLOS on 06/09/21 1435 Last Action: Reviewed Cholecalciferol (Vitamin D3) (Vitamin D3) 10 Mcg (400 Unit) Capsule, 10 MCG PO DAILY, (Reported) Entered as Reported by: GIO CARLOS on 08/29/22 133 Last Action: Reviewed Cranberry Extract (Cranberry) 500 Mg Tablet, 500 MG PO DAILY, (Reported) Entered as Reported by: GIO CARLOS on 08/29/22 133 Last Action: Reviewed Docusate Sodium (Docusate Sodium) 100 Mg Capsule, 100 MG PO 1600, (Reported) Entered as Reported by: GIO CARLOS on 06/08/22 113 Last Action: Reviewed Empagliflozin (Jardiance) 25 Mg Tablet, 12.5 MG PO DAILY, (Reported) Entered as Reported by: GIO CARLOS on 06/08/22 113 Last Action: Reviewed Finasteride (Finasteride) 5 Mg Tablet, 5 MG PO 1600, (Reported) Entered as Reported by: GIO CARLOS on 08/11/21 154 Last Action: Reviewed Furosemide (Furosemide) 40 Mg Tablet, 40 MG PO DAILY PRN for FLUID RETENTION, (Reported) Entered as Reported by: GIO CARLOS on 08/11/211548 Last Action: Reviewed Metoprolol Tartrate (Metoprolol Tartrate) 50 Mg Tablet, 25 MG PO 0800,1600, (Reported) Entered as Reported by: GIO CARLOS on 08/11/211540 Last Action: Reviewed Multivitamin with Minerals (Multivitamins with Minerals) 1 Each Tablet, 1 EACH PO DAILY, (Reported) Entered as Reported by: GIO CARLOS on 05/19/211548 Last Action: Reviewed Nitrofurantoin Monohyd/M-Cryst (Nitrofurantoin Hand-Mcr 100 mg) 100 Mg Capsule, 100 MG PO 1200, (Reported) Entered as Reported by: GIO CARLOS on 10/15/221441 Last Action: Reviewed Polyethylene Glycol 3350 (Miralax) 17 Gram Powd.pack, 17 GM PO DAILY PRN for CONSTIPATION-2ND LINE, (Reported) Entered as Reported by: GIO CARLOS on 08/11/211540 Last Action: Reviewed Potassium Chloride (Potassium Chloride) 20 Meq Tablet.er, 20 MEQ PO DAILY PRN for WHEN TAKING FUROSEMIDE, (Reported) Entered as Reported by: GIO CARLOS on 06/08/221137 Last Action: Reviewed Psyllium Husk (with Sugar) (Metamucil Packet) 3.4 Gram Powd.pack, 3.4 GM PO DAILY PRN for CONSTIPATION, (Reported) Entered as Reported by: GIO CARLOS on 10/15/221441 Last Action: Reviewed Vit C/E/Zn/Coppr/Lutein/Zeaxan (Preservision Areds 2 Softgel) 250MG-90MG Capsule, 1 EACH PO BID, (Reported) Entered as Reported by: GIO CARLOS on 06/08/221137 Last Action: Reviewed Physical Exam-Cardiology Physical Exam Vital Signs/I&O 10/15/22 10/15/22 10/15/22 10/16/22 19:58 20:00 23:16 01:00 Temp 37.0 36.8 Pulse 79 72 84 Resp 18 B/P (MAP) 126/70 (88) 102/61 (75) Pulse Ox 95 96 O2 Delivery Nasal Cannula Nasal Cannula Nasal Cannula O2 Flow Rate 5.00 5.00 5.00 10/16/22 10/16/22 03:34 07:13 Temp 36.8 36.4 Pulse 85 72 Resp 19 20 B/P (MAP) 118/75 (89) 109/63 (78) Pulse Ox 93 94 O2 Delivery Nasal Cannula Nasal Cannula O2 Flow Rate 5.00 5.00 10/16/22 00:00 Intake Total 4550 ml Output Total 2600 ml Balance 1950 ml Capillary Refill : Less Than 3 Seconds Constitutional: AAO x 3, well-developed, well-nourished HEENT: PERRL, hearing is well preserved, oral hygience is good Neck: No carotid bruit; carotid pulses are 2 + bilaterally Respiratory: No accessory muscle use, No respiratory distress; chest expansion is symmetric, chest is bilaterally symmetric, lungs clear to auscultation Cardiovascular: regular rate-rhythm; No JVD; S1 and S2 Gastrointestinal: No tender; soft, audible bowel sounds Extremities: no lower extremity edema bilateral Neurologic/Psychiatric: other (moves extremities) Skin: No rash on exposed areas, No ulcerations on exposed areas Data Review Labs Laboratory Tests 10/15/22 11:20: Lactic Acid Level 1.94 10/15/22 15:51: Glucometer 128H 10/15/22 20:36: Glucometer 149H 10/16/22 04:38: White Blood Count 7.7, Red Blood Count 3.85L, Hemoglobin 13.7, Hematocrit 40, Mean Corpuscular Volume 104H, Mean Corpuscular Hemoglobin 36H, Mean Corpuscular Hemoglobin Concent 34, Red Cell Distribution Width 14.7H, Platelet Count 118L, Mean Platelet Volume 10.9, Immature Granulocyte % (Auto) 0, Neutrophils (%) (Auto) 89H, Lymphocytes (%) (Auto) 4L, Monocytes (%) (Auto) 5, Eosinophils (%) (Auto) 1, Basophils (%) (Auto) 0, Neutrophils # (Auto) 6.9, Lymphocytes # (Auto) 0.3L, Monocytes # (Auto) 0.4, Eosinophils # (Auto) 0.1, Basophils # (Auto) 0.0, Immature Granulocyte # (Auto) 0.0, Neutrophils % (Manual) 89, Lymphocytes % (Manual) 2, Monocytes % (Manual) 3, Eosinophils % (Manual) 2, Band Neutrophils 3, Reactive Lymphocytes 1, Percent Immature Platelet Fraction 3.1, Macrocytosis MARKED, Sodium Level 134L, Potassium Level 3.7, Chloride Level 109H, Carbon D ioxide Level 16L, Anion Gap 9, Blood Urea Nitrogen 19H, Creatinine 1.03, Estimat Glomerular Filtration Rate 75, BUN/Creatinine Ratio 18, Glucose Level 110H, Calcium Level 8.1L, Corrected Calcium 9.1, Total Bilirubin 1.5H, Aspartate Amino Transf (AST/SGOT) 80H, Alanine Aminotransferase (ALT/SGPT) 49, Alkaline Phosphatase 123, Total Protein 6.6, Albumin 2.8L Microbiology 10/14/22 Blood Culture - Preliminary, Resulted No growth Radiology NAME: VIPIN ASHTON [facility] REC#: [id number] PT STATUS: REG ER : 1945 PHYSICIAN: WYATT VALDEZ DO ADMIT DATE: 10/14/22/ER Signed Date of Exam:10/14/22 CHEST 1 VIEW, AP/PA ONLY EXAM: CHEST 1 VIEW, AP/PA ONLY INDICATION: Weakness. Hypoxia. COMPARISON: 06/07/2022. FINDINGS: Cardiomegaly with normal central pulmonary vascularity. AICD. No focal pulmonary opacity. No pleural effusion or pneumothorax. No acute osseous findings. IMPRESSION: Stable cardiomegaly with normal central pulmonary vascularity. No acute cardiopulmonary findings. Dictated by: Dictated on workstation # [id number] Dict: 10/14/222002 Trans: 10/14/222017 CVB [id number] Interpreted by: SEBASTIEN LY MD Electronically signed by: SEBASTIEN LY MD 10/14/222017 ECG Impression ECG Comment SR with first degree block, RBBB A/P-Cardiology Assessment/Admission Diagnosis UTI - management per medical services Elevated troponin - chronically mildy elevated troponin since August 2021 Arrhythmogenic RVD - Status post successful direct-current cardioversion with 1 synchronized biphasic shock at 150 J with successful conversion of sustained unstable ventricular tachycardia to sinus rhythm on 05/19/21 - - CARDIAC ELECTROPHYSIOLOGY REPORT (05/31/2021) by Dr. Forbes at [facility]: 1. Incessant slow ventricular tachycardia originating from the inflow region of the tricuspid valve on the free wall aspect of the right ventricle. 2. Multiple VT morphologies with different cycle length were induced after the ablation of the clinical ventricular tachycardia. The patient had to be cardioverted to normal sinus rhythm. - H/o VT for which he has ablation in June 2021 - H/O AICD implanted by Dr. Vaughan at [facility] (details unknown) - device interrogation of 04-06-22 showed device to be functioning normally - CARDIAC CATHETERIZATION (05/19/2021) by Dr. Farrar: Normal left heart pressures. Angiographically normal-appearing coronary arteries in a right dominant system. - ECHOCARDIOGRAM (05/19/2021) by Dr. Farrar Limited study to assess left ventricular ejection fraction. Normal left ventricular chamber size and systolic function with an estimated ejection fraction of 50-55% with flattening of the intraventricular septum consistent with right ventricular pressure and/or volume overload. The left ventricular diastolic function was not determined. The right ventricle is severely dilated with severely reduced function. A device wire was noted in the right ventricle. There is mild aortic valve sclerosis. There is moderate tricuspid regurgitation. There is a trivial anterior pericardial effusion. The estimated pulmonary artery systolic pressure is 28 mmHg assuming a right atrial pressure of 5 mmHg. - ECHOCARDIOGRAM (05/31/2021) by Dr. Barbour at [facility]: 1. Normal left ventricular chamber size, wall thickness and systolic function with an estimated ejection fraction of 50-55% with normal wall motion. 2. Diastolic dysfunction is present. Unable to reliably assess filling pressures. 3. The right ventricle is massively dilated with severely reduced function. 4. The left atrium is moderately dilated. 5. The right atrium is severely dilated. 6. There is severe tricuspid regurgitation. 7. There is mild to moderate pulmonic regurgitation. 8. There is a small posterior pericardial effusion. 9. The estimated pulmonary artery systolic pressure is at least 43 mmHg. 10. The inferior vena cava is dilated with blunted respiratory variation. - ECHOCARDIOGRAM (08/11/2021) by Dr. Rivera: 1. Normal left ventricular chamber size with severe concentric hypertrophy. Normal left ventricular systolic function with an estimated ejection fraction of 50-55% with no regional wall motion abnormalities identified. 2. Doppler parameters are consistent with grade 1 diastolic dysfunction. 3. The right ventricle is severely dilated. Systolic function is reported to be normal. Device wire noted in the right heart chambers. 4. The right atrium is mild-moderately dilated. 5. There is mild mitral regurgitation. 6. There is moderate tricuspid regurgitation. 7. Pulmonary artery systolic pressure is estimated to be 35-40 mmHg. No distinct evidence of pulmonic stenosis on this study. Carotid u/s 08/11/21: There is no grayscale or Doppler evidence of significant vascular stenosis CKD 3 DM 2 HTN HLD H/o neurogenic bladder H/o UTIs Discussion and Recomendations UTI - management per medical services Chronically mildly elevated troponin Echocardiogram to eval structure and function Continue home medication regimen Monitor lab closely Further recs will be based on his hospital course Clinical Quality Measures AMI/AHF: ASA po Prior to arrival: Yes (81 MG) SHARRON ESTEVEZ [facility] Oct 15, 2022 08:03
[2022-10-15] MEDS: ASPIRIN enteric coated 81MG TABLET PO SCH (08:12)
[2022-10-15] MEDS ORDERED: ENOXAPARIN 100 MG/1 ML SYRINGE SC SCH (09:00)
--- NOTE | 2022-10-15 10:16 | Diagnostic Imaging Report ---
Indication: Respiratory failure. Comparison is made with prior exam of 10/14/2022. FINDINGS: There is cardiomegaly. There is prominence in the region of the main pulmonary artery. Lungs are clear. No pleural effusion or pneumothorax. The mediastinum is unremarkable. Pacemaker overlies left hemithorax. IMPRESSION: Bulging the left heart border suspect for some prominence of the main pulmonary artery. Possibility of some underlying pulmonary arterial hypertension cannot be excluded. Recommend clinical correlation and if warranted follow-up with echocardiogram. Cardiomegaly. No other acute cardiopulmonary abnormality. Dictated by: Dictated on workstation # [id number]
[2022-10-15] MEDS ORDERED: LIDOCAINE UROJET 2% GEL 10 ML PKG TOP ONE (10:45)
[2022-10-15] MEDS ORDERED: NS IV 1000 ML 1,000 ML IV SCH (11:00)
--- NOTE | 2022-10-15 12:47 | Physical Therapy Progress Note ---
Therapy Progress Note Patient adamantly decline PT on this date stating, "I'm too tired. Come back tomorrow." PT will attempt tomorrow MATT Resendiz PT Oct 15, 2022 12:46
--- NOTE | 2022-10-15 12:51 | Consultation-Cardiology ---
HPI-Cardiology Cardiology Consultation: Date of Consultation 10/15/22 Time Seen by a Provider: 09:20 Date of Admission Attending Physician No,Local Physician Admitting Physician Admitting Physician: Jonathan Ramos MD Attending Physician: Monserrat Carrasquillo MD Consulting Physician LEXI RIVERA MD, MA, FACP, FACC, FSCAI, CCDS HPI: Chief Complaint: Elevated troponin Mr. Thomas is a 77 yr old male admitted to [facility] from the ED with increasing weakness over the course of the last several weeks. He reports he was seen in the ED approx 2 weeks ago d/t hematuria. He was given abx which he completed. He has a neurogenic bladder and therefore he has to straight cath his urinary bladder in order to urinate. He reports increasing freq and urge. He denies any CP, palpitations, syncope, near syncope, LE swelling, n/v/d. He has chronic mild dyspnea which he feels is unchanged. He denies any LE swelling. Review of Systems-Cardiology Review of Systems Constitutional: No chills, No fever; malaise, tiredness Eyes: No vision change Ears/Nose/Throat: No recent hearing loss Respiratory: As described under HPI Cardiovascular: As described under HPI Gastrointestinal: As described under HPI Genitourinary: As described under HPI Musculoskeletal: no symptoms reported Skin: No rash on exposed areas, No ulcerations on exposed areas Psychiatric/Neurological: No anxiety, No depression, No seizure, No focal weakness, No syncope Hematologic: No bleeding abnormalities MIT-Toycfe-Qzngym Hx Patient Social History Smoking Status: Former Smoker Alcohol Use?: Yes Pt feels they are or have been: No Immunizations Up To Date Date of Influenza Vaccine: Jan 02, 2021 Past Medical History PMH As described under Assessment. Family Medical History Family Medical History: His father had arrhythmogenic right ventricular dysplasia. Allergies and Home Medications Allergies Uncoded Allergies: UNKNOWN CHOLESTEROL MED. (Allergy, Unknown, UNKNOWN STATES CAN'T REMEMBER MEDIATION NOR SIDE EFFECT, 07/10/21) Patient Home Medication List Home Medication List Reviewed: Yes Acetaminophen (Tylenol Extra Strength) 500 Mg Tablet, 1,000 MG PO Q8H PRN for PAIN-MILD (1-4) OR TEMPATURE, (Reported) Entered as Reported by: GIO CARLOS on 05/19/21 8326 Albuterol Sulfate (Ventolin Hfa) 1 Puff Puff, 2 PUFF IH QID PRN for SHORTNESS OF BREATH, (Reported) Entered as Reported by: GIO CARLOS on 05/19/21 1548 Allopurinol (Allopurinol) 100 Mg Tablet, 100 MG PO DAILY, (Reported) Entered as Reported by: GIO CARLOS on 05/19/21 1548 Amiodarone HCl (Amiodarone HCl) 200 Mg Tablet, 200 MG PO DAILY, (Reported) Entered as Reported by: GIO CARLOS on 06/08/22 1138 Ascorbate Calcium (Vitamin C) 500 Mg Tablet, 500 MG PO DAILY, (Reported) Entered as Reported by: GIO CARLOS on 05/19/21 1548 Aspirin (Aspirin EC) 81 Mg Tablet.dr, 81 MG PO DAILY, (Reported) Entered as Reported by: GIO CARLOS on 08/11/21 154 Atorvastatin Calcium (Atorvastatin Calcium) 80 Mg Tablet, 40 MG PO HS, (Reported) Entered as Reported by: GIO CARLOS on 06/09/21 1435 Cephalexin (Cephalexin) 500 Mg Tablet, 500 MG PO BID Prescribed by: JONATHAN RAMOS on 08/30/22 1218 Cholecalciferol (Vitamin D3) (Vitamin D3) 10 Mcg (400 Unit) Capsule, 10 MCG PO DAILY, (Reported) Entered as Reported by: GIO CARLOS on 08/29/22 1333 Cranberry Extract (Cranberry) 500 Mg Tablet, 500 MG PO DAILY, (Reported) Entered as Reported by: GIO CARLOS on 08/29/22 1333 Docusate Sodium (Docusate Sodium) 100 Mg Capsule, 100 MG PO 1600, (Reported) Entered as Reported by: GIO CARLOS on 06/08/22 1138 Empagliflozin (Jardiance) 25 Mg Tablet, 12.5 MG PO DAILY, (Reported) Entered as Reported by: GIO CARLOS on 06/08/22 1138 Finasteride (Finasteride) 5 Mg Tablet, 5 MG PO 1600, (Reported) Entered as Reported by: GIO CARLOS on 08/11/21 1541 Furosemide (Furosemide) 40 Mg Tablet, 40 MG PO DAILY PRN for FLUID RETENTION, (Reported) Entered as Reported by: GIO CARLOS on 08/11/21 1549 Levofloxacin (Levofloxacin) 750 Mg Tablet, 750 MG PO DAILY Prescribed by: JONATHAN RAMOS on 09/02/22 1432 Metoprolol Tartrate (Metoprolol Tartrate) 50 Mg Tablet, 25 MG PO BID WITH MEALS, (Reported) Entered as Reported by: GIO CARLOS on 08/11/21 1541 Multivitamin with Minerals (Multivitamins with Minerals) 1 Each Tablet, 1 EACH PO DAILY, (Reported) Entered as Reported by: GIO CARLOS on 05/19/21 1549 Polyethylene Glycol 3350 (Miralax) 17 Gram Powd.pack, 17 GM PO DAILY PRN for CONSTIPATION-2ND LINE, (Reported) Entered as Reported by: GIO CARLOS on 08/11/21 1541 Potassium Chloride (Potassium Chloride) 20 Meq Tablet.er, 20 MEQ PO DAILY PRN for WHEN TAKING FUROSEMIDE, (Reported) Entered as Reported by: GIO CARLOS on 06/08/22 1138 Tramadol HCl (Tramadol HCl) 50 Mg Tablet, 50 MG PO TID PRN for PAIN-MODERATE (5- 7), (Reported) Entered as Reported by: GIO CARLOS on 08/11/21 1541 Vit C/E/Zn/Coppr/Lutein/Zeaxan (Preservision Areds 2 Softgel) 250MG-90MG Capsule, 1 EACH PO BID, (Reported) Entered as Reported by: GIO CARLOS on 06/08/22 1138 Physical Exam-Cardiology Physical Exam Vital Signs/I&O 10/15/22 10/15/22 10/15/22 10/15/22 01:00 04:00 07:00 07:39 Temp 36.7 36.3 Pulse 51 63 69 72 Resp 17 17 B/P (MAP) 152/98 (116) 95/57 (70) Pulse Ox 93 94 O2 Delivery Nasal Cannula Nasal Cannula O2 Flow Rate 3.00 3.00 10/15/22 10/15/22 10/15/22 10/15/22 08:00 11:08 12:03 12:04 Temp 39.2 38.6 38.7 Pulse 105 Resp 26 B/P (MAP) 167/113 (131) Pulse Ox 92 O2 Delivery Nasal Cannula Nasal Cannula O2 Flow Rate 3.00 3.00 10/15/22 00:00 Intake Total 1050 ml Balance 1050 ml Capillary Refill : Less Than 3 Seconds Constitutional: AAO x 3, well-developed, well-nourished HEENT: PERRL, hearing is well preserved, oral hygience is good Neck: No carotid bruit; carotid pulses are 2 + bilaterally Respiratory: No accessory muscle use, No respiratory distress; chest expansion is symmetric, chest is bilaterally symmetric, lungs clear to auscultation Cardiovascular: regular rate-rhythm; No JVD; S1 and S2 Gastrointestinal: No tender; soft, audible bowel sounds Extremities: no lower extremity edema bilateral Neurologic/Psychiatric: other (moves extremities) Skin: No rash on exposed areas, No ulcerations on exposed areas Data Review Labs Laboratory Tests 10/14/22 18:51: White Blood Count 7.9, Red Blood Count 4.43, Hemoglobin 15.6, Hematocrit 46, Mean Corpuscular Volume 104H, Mean Corpuscular Hemoglobin 35H, Mean Corpuscular Hemoglobin Concent 34, Red Cell Distribution Width 14.4, Platelet Count 159, Mean Platelet Volume 10.5, Immature Granulocyte % (Auto) 0, Neutrophils (%) (Auto) 72, Lymphocytes (%) (Auto) 16, Monocytes (%) (Auto) 11, Eosinophils (%) (Auto) 1, Basophils (%) (Auto) 0, Neutrophils # (Auto) 5.7, Lymphocytes # (Auto) 1.3, Monocytes # (Auto) 0.8, Eosinophils # (Auto) 0.1, Basophils # (Auto) 0.0, Immature Granulocyte # (Auto) 0.0, Erythrocyte Sedimentation Rate 17, Prothrombin Time 15.7H, INR Comment 1.2, Activated Partial Thromboplast Time 33, D-Dimer 0.53H, Sodium Level 134L, Potassium Level 4.1, Chloride Level 102, Carbon Dioxide Level 21, Anion Gap 11, Blood Urea Nitrogen 30H, Creatinine 1.47H , Estimat Glomerular Filtration Rate 49, BUN/Creatinine Ratio 20, Glucose Level 142H, Lactic Acid Level 1.39, Calcium Level 9.1, Corrected Calcium 9.3, Magnesium Level 2.1, Total Bilirubin 1.7H, Aspartate Amino Transf (AST/SGOT) 29, Alanine Aminotransferase (ALT/SGPT) 26, Alkaline Phosphatase 149H, Ammonia 28, Total Creatine Kinase 59, Creatine Kinase MB 3.1, Myoglobin 82.6, Troponin I 0.148H, C-Reactive Protein High Sensitivity 3.50H, B-Type Natriuretic Peptide 8 93.5H, Total Protein 8.5H, Albumin 3.8, Lipase 55, TSH [place] Testing 1.97, Serum Alcohol < 10 10/14/22 18:55: Influenza Type A (RT-PCR) Not Detected, Influenza Type B (RT-PCR) Not Detected, SARS-CoV-2 RNA (RT-PCR) Not Detected 10/14/22 19:10: Blood Gas Puncture Site LEFT RADIAL, Blood Gas Patient Temperature UNKNOWN, Arterial Blood pH 7.42, Arterial Blood Partial Pressure CO2 31L, Arterial Blood Partial Pressure O2 66L, Arterial Blood HCO3 20L, Arterial Blood Total CO2 20.4L , Arterial Blood Oxygen Saturation 94, Arterial Blood Base Excess -4.2L, Roland Test UNKNOWN, Blood Gas Ventilator Setting NO, Blood Gas Inspired Oxygen 3 LITERS 10/14/22 19:49: Urine Color YELLOW, Urine Clarity CLEAR, Urine pH 5.0, Urine Specific [place] 1.010L, Urine Protein TRACEH, Urine Glucose (UA) 3+H, Urine Ketones NEGATIVE, Urine Nitrite NEGATIVE, Urine Bilirubin NEGATIVE, Urine Urobilinogen 1.0, Urine Leukocyte Esterase 1+H, Urine RBC (Auto) NEGATIVE, Urine RBC NONE, Urine WBC 10- 25H, Urine Crystals NONE, Urine Bacteria FEWH, Urine Casts PRESENT, Urine Hyaline Casts 0-2H, Urine Mucus SMALLH, Urine Culture Indicated YES, Urine Opiates Screen NEGATIVE, Urine Oxycodone Screen NEGATIVE, Urine Methadone Screen NEGATIVE, Urine Propoxyphene Screen NEGATIVE, Urine Barbiturates Screen NEGATIVE, Ur Tricyclic Antidepressants Screen NEGATIVE, Urine Phencyclidine Screen NEGATIVE, Urine Amphetamines Screen NEGATIVE, Urine Methamphetamines Screen NEGATIVE, Urine Benzodiazepines Screen NEGATIVE, Urine Cocaine Screen NEGATIVE, Urine Cannabinoids Screen NEGATIVE 10/14/22 23:24: Troponin I 0.146H 10/15/22 02:50: Troponin I 0.132H, White Blood Count 5.9, Red Blood Count 4.12L, Hemoglobin 14.6, Hematocrit 43, Mean Corpuscular Volume 105H, Mean Corpuscular Hemoglobin 35H, Mean Corpuscular Hemoglobin Concent 34, Red Cell Distribution Width 14.5, Platelet Count 148, Mean Platelet Volume 11.3, Immature Granulocyte % (Auto) 0, Neutrophils (%) (Auto) 75, Lymphocytes (%) (Auto) 17, Monocytes (%) (Auto) 6, Eosinophils (%) (Auto) 1, Basophils (%) (Auto) 1, Neutrophils # (Auto) 4.5, Lymphocytes # (Auto) 1.0, Monocytes # (Auto) 0.3, Eosinophils # (Auto) 0.0, Basophils # (Auto) 0.0, Immature Granulocyte # (Auto) 0.0, Sodium Level 140, Potassium Level 4.0, Chloride Level 108H, Carbon Dioxide Level 20L, Anion Gap 12, Blood Urea Nitrogen 28H, Creatinine 1.40H, Estimat Glomerular Filtration Rate 52, BUN/Creatinine Ratio 20, Glucose Level 154H, Calcium Level 8.7, Corrected Calcium 9.3, Total Bilirubin 1.1H, Aspartate Amino Transf (AST/SGOT) 25, Alanine Aminotransferase (ALT/SGPT) 22, Alkaline Phosphatase 133, Total Protein 7.5, Albumin 3.3, Triglycerides Level 39, Cholesterol Level 95, LDL Cholesterol Direct 44, VLDL Cholesterol 8, HDL Cholesterol 45 10/15/22 05:23: Glucometer 110 10/15/22 11:20: Lactic Acid Level 1.94 A/P-Cardiology Assessment/Admission Diagnosis UTI - management per medical services Elevated troponin - chronically mildy elevated troponin since August 2021 Arrhythmogenic RVD - Status post successful direct-current cardioversion with 1 synchronized biphasic shock at 150 J with successful conversion of sustained unstable ventricular tachycardia to sinus rhythm on 05/19/21 - - CARDIAC ELECTROPHYSIOLOGY REPORT (05/31/2021) by Dr. Forbes at [facility]: 1. Incessant slow ventricular tachycardia originating from the inflow region of the tricuspid valve on the free wall aspect of the right ventricle. 2. Multiple VT morphologies with different cycle length were induced after the ablation of the clinical ventricular tachycardia. The patient had to be cardioverted to normal sinus rhythm. - H/o VT for which he has ablation in June 2021 - H/O AICD implanted by Dr. Vaughan at [facility] (details unknown) - device interrogation of 04-06-22 showed device to be functioning normally - CARDIAC CATHETERIZATION (05/19/2021) by Dr. Farrar: Normal left heart pressures. Angiographically normal-appearing coronary arteries in a right dominant system. - ECHOCARDIOGRAM (05/19/2021) by Dr. Farrar Limited study to assess left ventricular ejection fraction. Normal left kimberly tricular chamber size and systolic function with an estimated ejection fraction of 50-55% with flattening of the intraventricular septum consistent with right ventricular pressure and/or volume overload. The left ventricular diastolic function was not determined. The right ventricle is severely dilated with severely reduced function. A device wire was noted in the right ventricle. There is mild aortic valve sclerosis. There is moderate tricuspid regurgitation. There is a trivial anterior pericardial effusion. The estimated pulmonary artery systolic pressure is 28 mmHg assuming a right atrial pressure of 5 mmHg. - ECHOCARDIOGRAM (05/31/2021) by Dr. Barbour at [facility]: 1. Normal left ventricular chamber size, wall thickness and systolic function w ith an estimated ejection fraction of 50-55% with normal wall motion. 2. Diastolic dysfunction is present. Unable to reliably assess filling pressures. 3. The right ventricle is massively dilated with severely reduced function. 4. The left atrium is moderately dilated. 5. The right atrium is severely dilated. 6. There is severe tricuspid regurgitation. 7. There is mild to moderate pulmonic regurgitation. 8. There is a small posterior pericardial effusion. 9. The estimated pulmonary artery systolic pressure is at least 43 mmHg. 10. The inferior vena cava is dilated with blunted respiratory variation. - ECHOCARDIOGRAM (08/11/2021) by Dr. Rivera: 1. Normal left ventricular chamber size with severe concentric hypertrophy. Normal left ventricular systolic function with an estimated ejection fraction of 50-55% with no regional wall motion abnormalities identified. 2. Doppler parameters are consistent with grade 1 diastolic dysfunction. 3. The right ventricle is severely dilated. Systolic function is reported to be normal. Device wire noted in the right heart chambers. 4. The right atrium is mild-moderately dilated. 5. There is mild mitral regurgitation. 6. There is moderate tricuspid regurgitation. 7. Pulmonary artery systolic pressure is estimated to be 35-40 mmHg. No distinct evidence of pulmonic stenosis on this study. Carotid u/s 08/11/21: There is no grayscale or Doppler evidence of significant vascular stenosis CKD 3 DM 2 HTN HLD H/o neurogenic bladder H/o UTIs Discussion and Recomendations UTI - management per medical services Chronically mildly elevated troponin Echocardiogram to eval structure and function Continue home medication regimen Monitor lab closely Further recs will be based on his hospital course Clinical Quality Measures AMI/AHF: ASA po Prior to arrival: Yes (81 MG) LEXI RIVERA MD FACP FAC CCDS Oct 15, 2022 12:51
--- NOTE | 2022-10-15 13:01 | Occ Therapy Progress Note ---
Therapy Progress Note Patient declines therapy on this date, stating, "I'm too tired. Come back tomorrow." OT will attempt tomorrow PARESH Snow OT Oct 15, 2022 13:01
[2022-10-15] MEDS ORDERED: NITR100C10 PO (14:42)
[2022-10-15] MEDS ORDERED: PSYL1PAC10 PO (14:42)
--- NOTE | 2022-10-15 16:11 | History & Physical-Hospitalist ---
History of Present Illness HPI/Chief Complaint Truman Thomas is a 77 year old male with PMH HTN, T2DM, HLD, CH'F, BPH, who presented with weakness. He has had difficulty ambulating. He denies fevers. He is shaking upon my exam. He has been self cathing twice daily for the past couple weeks. He has a history of BPH and was told he needed surgery but was later determined to not be a suitable surgical candidate. He denies chest pain. He denies shortness of breath. He denies abdominal pain, nausea, and vomiting. Source: patient Exam Limitations: no limitations Date Seen 10/15/22 Time Seen by a Provider: 10:20 Attending Physician No,Local Physician PCP Admitting Physician: Cary Long MD Attending Physician: Mekhi Gifford MD Referring Physician Date of Admission Oct 14, 2022 at 22:50 Home Medications & Allergies Home Medications Reviewed patient Home Medication Reconciliation performed by pharmacy medication reconciliations maintenance service technician and/or nursing. Patients Allergies have been reviewed. Allergies Allergies Uncoded Allergies UNKNOWN CHOLESTEROL MED. ( Allergy, Unknown, UNKNOWN STATES CAN'T REMEMBER MEDIATION NOR SIDE EFFECT, 07/10/21) Past Nfgrzhr-Azvhqx-Jwyjof Hx Patient Social History Tobacco Use?: No Smoking Status: Former Smoker Use of E-Cig and/or Vaping dev: No Substance use?: No Alcohol Use?: Yes Alcohol type: Beer Alcohol Frequency: Couple times a week Pt feels they are or have been: No Immunizations Up To Date Date of Influenza Vaccine: Jan 02, 2021 First/Initial COVID19 Vaccinat: unk Second COVID19 Vaccination Eugenio: 2020 Tetanus Booster (TDap): Less Than 5 Years Hepatitis A: No Hepatitis B: No Current Status Advance Directives: No Communicates: Verbally Primary Language: Wolof Preferred Spoken Language: Wolof Is interpretation needed?: No Sensory deficits: Vision impairment Implanted or Applied Medical D: Implantable cardioverter, Pacemaker Past Medical History Surgeries: Defibrillator, Orthopedic, Pacemaker, Rectal Cardiomyopathy, Chronic Edema/Swelling, High Cholesterol, Irregular Heartbeat Cerebral Palsy Benign Prostatic Hyperpl, Kidney Infection, Prostate Problems, Bladder Infection Chronic Constipation Gout Diabetes, Non-Insulin dep Blood Disorders: No Family Medical History No Pertinent Family Hx Review of Systems Constitutional: weakness Respiratory: no symptoms reported Cardiovascular: no symptoms reported Gastrointestinal: no symptoms reported Physical Exam Physical Exam Vital Signs Vital Signs - First Documented 10/14/22 10/14/22 18:42 19:39 Temp 36.9 Pulse 54 Resp 18 B/P (MAP) 126/79 (95) Pulse Ox 92 O2 Delivery Nasal Cannula O2 Flow Rate 3.00 Capillary Refill : Less Than 3 Seconds Height, Weight, BMI Height: 6'1.00" Weight: 235lbs. oz. [id number]; 28.51 BMI Method:Stated General Appearance: WD/WN, Mild Distress (rigors) HEENT: PERRL/EOMI, Pharynx Normal Neck: Normal Inspection, Supple Respiratory: Lungs Clear, No Respiratory Distress Cardiovascular: Regular Rate, Rhythm, No Murmur Gastrointestinal: Normal Bowel Sounds, Non Tender, Soft Extremity: Normal Inspection, No Pedal Edema Neurologic/Psychiatric: Alert, Normal Mood/Affect Skin: Normal Color, Warm/Dry Results Results/Procedures Labs Laboratory Tests 10/14/22 18:51 10/15/22 02:50 Patient resulted labs reviewed. Imaging: Reviewed Imaging Report Assessment/Plan Admission Diagnosis Sepsis due to UTI Admission Status: Inpatient Order (span 2 midnights) Reason for Inpatient Admission: IV antibiotics and fluids Assessment and Plan Sepsis due to UTI NEVAEH BPH UA concerning for UTI Urine culture pending Blood cultures pending Cefepime IV fluids Place mendez catheter due to retention Elevated troponin Mildly elevated No chest pain Cardiology consulted T2DM Sliding scale insulin HTN HLD CHF Continue home meds as able DVT prophylaxis: Lovenox Diagnosis/Problems Diagnosis/Problems (1) Sepsis due to urinary tract infection Status: Acute (2) NEVAEH (acute kidney injury) Status: Acute (3) Benign prostatic hyperplasia Status: Acute Qualifiers: Lower urinary tract symptom presence: symptoms present Lower urinary tract symptom detail: urinary retention Qualified Codes: N40.1 - Benign prostatic hyperplasia with lower urinary tract symptoms; R33.8 - Other retention of urine (4) Urinary retention due to benign prostatic hyperplasia Status: Acute (5) Debility Status: Acute Clinical Quality Measures AMI/AHF: ASA po Prior to arrival: Yes (81 MG) MEKHI GIFFORD MD Oct 15, 2022 16:11
[2022-10-15] MEDS: TAMSULOSIN 0.4 MG (FLOMAX) CAP PO SCH (19:46)
[2022-10-16] VITALS (7 sets, daily range): BP systolic 100–122; BP diastolic 63–75
[2022-10-16] MEDS: CEFEPIME 1,000 MG/NS 50 ML IVPB IV SCH ×2 (05:01)
[2022-10-16 05:12] LABS: MEAN PLATELET VOLUME 10.9 fL (9.0-12.2)
[2022-10-16 05:15] LABS: BASOPHILS % (AUTO) 0 % (0-10); EOSINOPHILS # (AUTO) 0.1 10^3/uL (0.0-0.3); EOSINOPHILS % (AUTO) 1 % (0-10); HEMATOCRIT 40 % (40-54); HEMOGLOBIN 13.7 g/dL (13.3-17.7); LYMPHOCYTES # (AUTO) 0.3 10^3/uL (1.0-4.0); LYMPHOCYTES % (AUTO) 4 % (12-44); MEAN CORPUSCULAR HEMOGLOBIN 36 pg (25-34); MEAN CORPUSCULAR HGB CONC 34 g/dL (32-36); MEAN CORPUSCULAR VOLUME 104 fL (80-99); MONOCYTES # (AUTO) 0.4 10^3/uL (0.0-1.0); MONOCYTES % (AUTO) 5 % (0-12); NEUTROPHILS # (AUTO) 6.9 10^3/uL (1.8-7.8); NEUTROPHILS % (AUTO) 89 % (42-75); PLATELET COUNT 118 10^3/uL (130-400); WHITE BLOOD COUNT 7.7 10^3/uL (4.3-11.0)
[2022-10-16 05:20] LABS: ALBUMIN 2.8 GM/DL (3.2-4.5)
[2022-10-16 05:21] LABS: POTASSIUM 3.7 MMOL/L (3.6-5.0)
[2022-10-16 05:22] LABS: CALCIUM 8.1 MG/DL (8.5-10.1)
[2022-10-16 05:23] LABS: TOTAL PROTEIN 6.6 GM/DL (6.4-8.2)
[2022-10-16 05:25] LABS: BILIRUBIN,TOTAL 1.5 MG/DL (0.1-1.0)
[2022-10-16 05:27] LABS: CREATININE SERUM 1.03 MG/DL (0.60-1.30)
[2022-10-16 05:42] LABS: BAND NEUTROPHILS 3 %; EOSINOPHILS % (MANUAL) 2 %; LYMPHOCYTES % (MANUAL) 2 %; MONOCYTES % (MANUAL) 3 %; NEUTROPHILS % (MANUAL) 89 %; REACTIVE LYMPHOCYTES 1 %
[2022-10-16] MEDS: inSUlin ASPART 1 UNIT/0.01 ML (PER UNIT) SC SCH ×4 (05:51→20:27)
--- NOTE | 2022-10-16 08:44 | Physical Therapy Evaluation ---
PT Evaluation-General Medical Diagnosis Admission Date Oct 14, 2022 at 22:50 Medical Diagnosis: UTI/elevated troponin Onset Date: Oct 14, 2022 Therapy Diagnosis Therapy Diagnosis: generalized weakness/debility Height/Weight Height (Feet): 6 Height (Inches): 1.00 Weight (Pounds): 235 Precautions Precautions/Isolations: Fall Prevention, Standard Precautions, Pressure Ulcer Referral Physician: Neida Reason for Referral: Evaluation/Treatment Medical History Pertinent Medical History: DM, Heart Failure, HTN Additional Medical History cerebral palsy Current History ER secondary to weakness Reviewed History: Yes Social History Home: Single Level Current Living Status: caregiver Prior Prior Level of Function SCALE: Activities may be completed with or without assistive devices. 5-Xegweuaejw-uaifust completes the activity by him/herself with no assistance from a helper. 5-Set-up or Clean-up Assistance-helper sets up or cleans up; patient completes activity. [place] assists only prior to or following the activity. 4-Supervision or Touching Assistance-helper provides verbal cues and/or touching/steadying and/or contact guard assistance as patient completes activ ity. Assistance may be provided throughout the activity or intermittently. 3-Partial/Moderate Assistance-helper does LESS THAN HALF the effort. [place] lifts, holds or supports trunk or limbs, but provides less than half the effort. 2-Substantial/Maximal Assistance-helper does MORE THAN HALF the effort. [place] lifts or holds trunk or limbs and provides more than half the effort. 1-Ebppdunch-omgwwf does ALL the effort. Patient does none of the effort to complete the activity. Or, the assistance of 2 or more helpers is required for the patient to complete the activity. If activity was not attempted, code reason: 7-Patient Refused. 9-Not Applicable-not attempted and the patient did not perform the activity before the current illness, exacerbation or injury. 10-Not Attempted due to Environmental Limitations-(lack of equipment, weather restraints, etc.). 88-Not Attempted due to Medical Conditions or Safety Concerns. Bed Mobility: 4 Transfers (B,C,W/C): 4 Gait: 4 Indoor Mobility (Ambulation): Needed Some Help Prior Devices Use: Other-see list below Prior Device Use: [facility]QC PT Evaluation-Current Subjective Patient states, "How long do I have to do this exercise shit?" Very behavioral and agitated Objective Attachments: Oxygen, Duong Catheter ROM/Strength ROM Lower Extremities bilateral LE WFL Strength Lower Extremities 4-/5 grossly bilateral LE (unable to test due to patient's agitation and resistance) Integumentary/Posture Bowel Incontinence: Yes Bladder Incontinence: Duong Cath Posture WFL Neuromuscular (Tone, Coordination, Reflexes) grossly intact with slight left LE decreased coordination Sensory Vision: Wears Glasses Hearing: Functional Transfers Lying to Sitting/Side of Bed(Q: 1 Sit to Stand (QC): 1 Chair/Pqq-hr-Kcuyq Xfer(QC): 1 impulsive and resistive (unsure of accurate findings due to patient's behavior) Gait Mode of Locomotion: Walk Anticipated Mode of Locomotion: Walk Walk 10 feet (QC): 2 Walk 50 ft with 2 Turns(QC): 7 Walk 150 ft (QC): 7 Distance: 10' Gait Assistive Device: FWW Balance Sitting Static: Fair Sitting Dynamic: Fair Standing Static: Fair Standing Dynamic: Fair Assessment/Needs Patient will benefit from skilled PT to address functional strength and mobility to improve current LOF to safely return to home at maximum LOF. 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 PT Correction Goals Time Frame: Nov 03, 2022 Roll Left & Right (QC): 4 Sit to Lying (QC): 4 Lying-Sitting on Side/Bed(QC): 4 Sit to Stand (QC): 4 Chair/Sja-tm-Zggyy Xfer(QC): 4 Walk 10 feet (QC): 4 Walk 50ft with 2 Turns (QC): 4 Walk 150 ft (QC): 4 PT Plan Problem List Problem List: Activity Tolerance, Functional Strength, Safety, Balance, Gait, Transfer, Bed Mobility Treatment/Plan Treatment Plan: Continue Plan of Care Treatment Plan: Bed Mobility, Education, Functional Activity Mallika, Functional Strength, Gait, Safety, Therapeutic Exercise, Transfers Treatment Duration: Nov 03, 2022 Frequency: 5 times per week Estimated Hrs Per Day: .25 hour per day Time Time In: 820 Time Out: 837 DATE: Oct 16, 2022 Total Billed Treatment Time: 17 Total Billed Treatment 1 visit EVMod 17 min MATT MUNGUIA PT Oct 16, 2022 08:44
[2022-10-16] MEDS: FINASTERIDE 5 MG TABLET PO SCH (08:45)
[2022-10-16] MEDS: ASPIRIN enteric coated 81MG TABLET PO SCH (08:45)
[2022-10-16] MEDS: ENOXAPARIN 40 MG/0.4 ML SYRINGE SC SCH (08:46)
--- NOTE | 2022-10-16 08:51 | Occupational Therapy Eval ---
OT Evaluation-General/PLF Medical Diagnosis Admission Date Oct 14, 2022 at 22:50 Medical Diagnosis: UTI/elevated troponin Onset Date: Oct 14, 2022 Therapy Diagnosis Therapy Diagnosis: weakness, confusion Height/Weight Height (Feet): 6 Height (Inches): 1.00 Weight (Pounds): 235 Precautions Precautions/Isolations: Fall Prevention, Standard Precautions, Pressure Ulcer Safety Interventions: Bed Exit Alarm Weight Bear Status Weight Bearing Restriction: Full Weight Bearing Location Restriction: LE Bilateral Referral Physician: Neida Referral Reason: Activity Tolerance, Self Care, Evaluation/Treatment, Strengthening/ROM Medical History Pertinent Medical History: DM, Heart Failure, HTN Additional Medical History 77 year old male with PMH HTN, T2DM, HLD, CH'F, BPH, who presented with weakness. He has had difficulty ambulating. He denies fevers. He is shaking upon my exam. He has been self cathing twice daily for the past couple weeks. He has a history of BPH and was told he needed surgery but was later determined to not be a suitable surgical candidate. He denies chest pain. He denies shortness of breath. He denies abdominal pain, nausea, and vomiting. Current History aggressive and confused, unable to follow command physically Reviewed History: Yes Social History Home: Single Level Current Living Status: caregiver Entry Into Home: Level Entry ADL-Prior Level of Function SCALE: Activities may be completed with or without assistive devices. 5-[id number]-[id number] completes the activity by him/herself with no assistance from a helper. 5-Set-up or Clean-up Assistance-helper sets up or cleans up; patient completes activity. [place] assists only prior to or following the activity. 4-Supervision or Touching Assistance-helper provides verbal cues and/or touching/steadying and/or contact guard assistance as patient completes activity. Assistance may be provided throughout the activity or intermittently. 3-Partial/Moderate Assistance-helper does LESS THAN HALF the effort. [place] lifts, holds or supports trunk or limbs, but provides less than half the effort. 2-Substantial/Maximal Assistance-helper does MORE THAN HALF the effort. [place] lifts or holds trunk or limbs and provides more than half the effort. 6-Wknrbqhpv-nzaymk does ALL the effort. Patient does none of the effort to complete the activity. Or, the assistance of 2 or more helpers is required for the patient to complete the activity. If activity was not attempted, code reason: 7-Patient Refused. 9-Not Applicable-not attempted and the patient did not perform the activity before the current illness, exacerbation or injury. 10-Not Attempted due to Environmental Limitations-(lack of equipment, weather restraints, etc.). 88-Not Attempted due to Medical Conditions or Safety Concerns. Self Care: Independent (per patient report) Functional Cognition: Independent DME/Equipment: Bath Chair, Shower Drive Self: No OT Current Status Subjective Confused, demonstrated aggressive behavior. How long is this business going to take Mental Status/Objective Patient Orientation: Person, Place (hospital), Time, Situation (UTI) Attachments: IV Current Glasses/Contacts: Yes Hearing Aids: No Hand Dominance: Right Upper Extremity ROM BUE ROM WFLs Upper Extremity Coordination IMPAIRED Upper Extremity Strength +4/5 ADL-Treatment Eating (QC): 5 Oral Hygiene (QC): 4 Shower/Bathe Self (QC): 88 Upper Body Dressing (QC): 3 Lower Body Dressing (QC): 1 On/Off Footwear (QC): 1 Toileting Hygiene (QC): 1 (BM incont. in bed) Aggressive maneuver of FWW Education OT Patient Education: Correct positioning, Exercise program, Modified ADL techniques, Progress toward Goal/Update tx plan, Purpose of tx/functional activities, Reviewed precautions, Rehab process, Safety issues, Transfer t echniques, Use of adapted equipment Teaching Recipient: Patient Teaching Methods: Demonstration, Discussion Response to Teaching: Verbalize Understanding, Unable to Comprehend, Reinforcement Needed OT Mcc Goals [employer] Operator Goals Oral Hygiene (QC): 6 Toileting Hygiene (QC): 6 (patient self cath) Shower/Bathe Self (QC): 6 Upper Body Dressing (QC): 6 Lower Body Dressing (QC): 6 On/Off Footwear (QC): 6 1=Demonstrate adherence to instructed precautions during ADL tasks. 2=Patient will verbalize/demonstrate understanding of assistive devices/ modifications for ADL. 3=Patient will improve strength/tolerance for activity to enable patient to perform ADL's. OT Education/Plan Problem List/Assessment Assessment: Decreased Activ Tolerance, Decreased Safety Aware, Impaired Cognition, Impaired Coordination, Impaired Funct Balance, Impaired Self-Care Skills Discharge Recommendations Plan/Recommendations: Continue POC Therapy Discharge Recommendati: Post Acute OT Treatment Plan/Plan of Care Patient would benefit from OT for education, treatment and training to promote independence in ADL's, mobility, safety and/or upper extremity function for ADL's. Plan of Care: ADL Retraining, Functional Mobility, Group Exercise/Act as Ind, UE Funct Exercise/Act Treatment Duration: Oct 19, 2022 Frequency: 3 times per week (3-5 times per week) Estimated Hrs Per Day: .25 hour per day Agreement: Yes Rehab Potential: Fair Up in recliner w/ all needs met Time Start Time: 08:30 Stop Time: 08:45 DATE: Oct 16, 2022 Total Time Billed (hr/min): 15 Billed Treatment Time EVM 15 min PARESH EVANS OT Oct 16, 2022 08:51
[2022-10-16] MEDS ORDERED: ENOXAPARIN 100 MG/1 ML SYRINGE SC SCH (09:00)
--- NOTE | 2022-10-16 10:27 | Progress Note - Cardiology ---
Cardiology SOAP Progress Note Subjective: Sitting up in recliner at the bedside No c/o CP, SOB or palpitations C/O continued gen weakness Objective: I&O/Vital Signs 10/16/22 10/17/22 10/17/22 23:40 03:32 08:04 Temp 36.1 36.1 36.4 Pulse 60 74 70 Resp 20 20 16 B/P (MAP) 112/70 (84) 128/80 (96) Pulse Ox 95 97 94 O2 Delivery Nasal Cannula Nasal Cannula Nasal Cannula O2 Flow Rate 5.00 5.00 5.00 10/17/22 00:00 Intake Total 1160 ml Output Total 1450 ml Balance -290 ml Weight (Pounds): 235 Weight (Calculated Kilograms): 106.329491 Constitutional: AAO x 3, well-developed, well-nourished Respiratory: No accessory muscle use, No respiratory distress; chest expansion is symmetric, chest is bilaterally symmetric, lungs clear to auscultation Cardiovascular: regular rate-rhythm; No JVD; S1 and S2 Gastrointestional: No tender; soft, audible bowel sounds Extremities: no lower extremity edema bilateral Neurologic/Psychiatric: other (moves extremities) Skin: No rash on exposed areas, No ulcerations on exposed areas Results/Procedures: Labs Laboratory Tests 10/16/22 10:22: Glucometer 153H 10/16/22 15:24: Glucometer 147H 10/16/22 20:19: Glucometer 167H 10/17/22 05:22: White Blood Count 5.4, Red Blood Count 3.77L, Hemoglobin 13.5, Hematocrit 39L, Mean Corpuscular Volume 103H, Mean Corpuscular Hemoglobin 36H, Mean Corpuscular Hemoglobin Concent 35, Red Cell Distribution Width 14.4, Platelet Count 126L, Mean Platelet Volume 10.5, Immature Granulocyte % (Auto) 0, Neutrophils (%) (Auto) 79H, Lymphocytes (%) (Auto) 9L, Monocytes (%) (Auto) 7, Eosinophils (%) (Auto) 4, Basophils (%) (Auto) 1, Neutrophils # (Auto) 4.3, Lymphocytes # (Auto) 0.5L, Monocytes # (Auto) 0.4, Eosinophils # (Auto) 0.2, Basophils # (Auto) 0.0, Immature Granulocyte # (Auto) 0.0, Percent Immature Platelet Fraction 2.7, [place]od[place] m Level 134L, Potassium Level 3.9, Chloride Level 109H, Carbon Dioxide Level 19L , Anion Gap 6, Blood Urea Nitrogen 19H, Creatinine 1.05, Estimat Glomerular Filtration Rate 74, BUN/Creatinine Ratio 18, Glucose Level 109H, Calcium Level 8.4L, Corrected Calcium 9.4, Total Bilirubin 1.1H, Aspartate Amino Transf (AST/SGOT) 57H, Alanine Aminotransferase (ALT/SGPT) 45, Alkaline Phosphatase 126, Total Protein 6.6, Albumin 2.8L Microbiology 10/14/22 Urine Culture - Final, Complete NO GROWTH 10/14/22 Blood Culture - Preliminary, Resulted No growth A/P: Assessment: UTI - management per medical services Elevated troponin - chronically mildy elevated troponin since August 2021 Arrhythmogenic RVD - Status post successful direct-current cardioversion with 1 synchronized biphas ic shock at 150 J with successful conversion of sustained unstable ventricular tachycardia to sinus rhythm on 05/19/21 - - CARDIAC ELECTROPHYSIOLOGY REPORT (05/31/2021) by Dr. Forbes at [facility]: 1. Incessant slow ventricular tachycardia originating from the inflow region of the tricuspid valve on the free wall aspect of the right ventricle. 2. Multiple VT morphologies with different cycle length were induced after the ablation of the clinical ventricular tachycardia. The patient had to be cardi overted to normal sinus rhythm. - H/o VT for which he has ablation in June 2021 - H/O AICD implanted by Dr. Vaughan at [facility] (details unknown) - device interrogation of 04-06-22 showed device to be functioning normally - CARDIAC CATHETERIZATION (05/19/2021) by Dr. Farrar: Normal left heart pressures. Angiographically normal-appearing coronary arteries in a right dominant system. - ECHOCARDIOGRAM (05/19/2021) by Dr. Farrar Limited study to assess left ventricular ejection fraction. Normal left ventricular chamber size and systolic function with an estimated ejection fraction of 50-55% with flattening of the intraventricular septum consistent with right ventricular pressure and/or volume overload. The left ventricular diastolic function was not determined. The right ventricle is severely dilated with severely reduced function. A device wire was noted in the right ventricle. There is mild aortic valve sclerosis. There is moderate tricuspid regurgitation. There is a trivial anterior pericardial effusion. The estimated pulmonary artery systolic pressure is 28 mmHg assuming a right atrial pressure of 5 mmHg. - ECHOCARDIOGRAM (05/31/2021) by Dr. Barbour at [facility]: 1. Normal left ventricular chamber size, wall thickness and systolic function with an estimated ejection fraction of 50-55% with normal wall motion. 2. Diastolic dysfunction is present. Unable to reliably assess filling pressures. 3. The right ventricle is massively dilated with severely reduced function. 4. The left atrium is moderately dilated. 5. The right atrium is severely dilated. 6. There is severe tricuspid regurgitation. 7. There is mild to moderate pulmonic regurgitation. 8. There is a small posterior pericardial effusion. 9. The estimated pulmonary artery systolic pressure is at least 43 mmHg. 10. The inferior vena cava is dilated with blunted respiratory variation. - ECHOCARDIOGRAM (08/11/2021) by Dr. Rivera: 1. Normal left ventricular chamber size with severe concentric hypertrophy. Normal left ventricular systolic function with an estimated ejection fraction of 50-55% with no regional wall motion abnormalities identified. 2. Doppler parameters are consistent with grade 1 diastolic dysfunction. 3. The right ventricle is severely dilated. Systolic function is reported to be normal. Device wire noted in the right heart chambers. 4. The right atrium is mild-moderately dilated. 5. There is mild mitral regurgitation. 6. There is moderate tricuspid regurgitation. 7. Pulmonary artery systolic pressure is estimated to be 35-40 mmHg. No distinct evidence of pulmonic stenosis on this study. Carotid u/s 08/11/21: There is no grayscale or Doppler evidence of significant vascular stenosis CKD 3 DM 2 HTN HLD H/o neurogenic bladder H/o UTIs Plan: UTI - management per medical services Chronically mildly elevated troponin Echocardiogram to eval structure and function Monitor lab closely Clinical Quality Measures AMI/AHF: ASA po Prior to arrival: Yes (81 MG) SHARRON ESTEVEZ Oct 16, 2022 10:27
[2022-10-16] MEDS ORDERED: CEFEPIME 1,000 MG/NS 50 ML IVPB IV SCH ×2 (11:00)
--- NOTE | 2022-10-16 14:33 | Progress Note - Hospitalist ---
Subjective HPI/CC On Admission Date Seen by Provider: Oct 16, 2022 Time Seen by Provider: 09:45 Truman Thomas is a 77 year old male with PMH HTN, T2DM, HLD, CH'F, BPH, who presented with weakness. He has had difficulty ambulating. He denies fevers. He is shaking upon my exam. He has been self cathing twice daily for the past coup le weeks. He has a history of BPH and was told he needed surgery but was later determined to not be a suitable surgical candidate. He denies chest pain. He denies shortness of breath. He denies abdominal pain, nausea, and vomiting. Subjective/Events-last exam He is feeling better. He is up in the chair. He has not had any more fevers or chills. He has no complaints or concerns. Focused Exam Lactate Level 10/14/22 18:51: Lactic Acid Level 1.39 10/15/22 11:20: Lactic Acid Level 1.94 Objective Exam Vital Signs Vital Signs Date Time Temp Pulse Resp B/P (MAP) Pulse Ox O2 Delivery O2 Flow Rate FiO2 10/16/22 12:40 67 10/16/22 11:24 36.2 20 100/67 (78) 95 Nasal Cannula 5.00 Capillary Refill : Less Than 3 Seconds General Appearance: No Apparent Distress, WD/WN Respiratory: Lungs Clear, No Respiratory Distress Cardiovascular: Regular Rate, Rhythm, No Murmur Gastrointestinal: Normal Bowel Sounds, Soft Extremity: Normal Inspection, No Pedal Edema Neurologic/Psychiatric: Alert, Normal Mood/Affect Skin: Normal Color, Warm/Dry Results/Procedures Lab Laboratory Tests 10/16/22 04:38 Patient resulted labs reviewed. Imaging: Reviewed Imaging Report Assessment/Plan Assessment and Plan Assess & Plan/Chief Complaint Sepsis due to UTI NEVAEH BPH UA concerning for UTI Urine culture with no growth Blood cultures with no growth Stop Cefepime Transition to Bactrim Continue mendez catheter due to retention Elevated troponin Mildly elevated No chest pain Cardiology consulted T2DM Sliding scale insulin HTN HLD CHF Continue home meds as able DVT prophylaxis: Lovenox Diagnosis/Problems Diagnosis/Problems (1) Sepsis due to urinary tract infection Status: Acute (2) NEVAEH (acute kidney injury) Status: Acute (3) Benign prostatic hyperplasia Status: Acute Qualifiers: Lower urinary tract symptom presence: symptoms present Lower urinary tract symptom detail: urinary retention Qualified Codes: N40.1 - Benign prostatic hyperplasia with lower urinary tract symptoms; R33.8 - Other retention of urine (4) Urinary retention due to benign prostatic hyperplasia Status: Acute (5) Debility Status: Acute Clinical Quality Measures AMI/AHF: ASA po Prior to arrival: Yes (81 MG) MEKHI GIFFORD MD Oct 16, 2022 14:33
--- NOTE | 2022-10-16 16:32 | Progress Note - Cardiology ---
Cardiology SOAP Progress Note Subjective: No cp or palp or syncope Gen weakness and malaise No n/v/d No shortness of breath Objective: I&O/Vital Signs 10/16/22 10/16/22 10/16/22 10/16/22 07:04 07:13 08:00 11:24 Temp 36.4 36.2 Pulse 75 72 71 Resp 20 20 B/P (MAP) 109/63 (78) 100/67 (78) Pulse Ox 94 95 O2 Delivery Nasal Cannula Nasal Cannula Nasal Cannula O2 Flow Rate 5.00 5.00 5.00 10/16/22 10/16/22 10/16/22 12:40 14:50 15:19 Temp 36.7 36.7 Pulse 67 66 60 Resp 18 17 B/P (MAP) 107/66 (80) 122/73 (89) Pulse Ox 95 96 O2 Delivery Nasal Cannula Nasal Cannula O2 Flow Rate 5.00 5.00 10/15/22 23:59 Intake Total 4550 ml Output Total 2600 ml Balance 1950 ml Weight (Pounds): 235 Weight (Calculated Kilograms): 106.152381 Constitutional: AAO x 3, well-developed, well-nourished Respiratory: No accessory muscle use, No respiratory distress; chest expansion is symmetric, chest is bilaterally symmetric, lungs clear to auscultation Cardiovascular: regular rate-rhythm; No JVD; S1 and S2 Gastrointestional: No tender; soft, audible bowel sounds Extremities: no lower extremity edema bilateral Neurologic/Psychiatric: other (moves extremities) Skin: No rash on exposed areas, No ulcerations on exposed areas Results/Procedures: Labs Laboratory Tests 10/15/22 20:36: Glucometer 149H 10/16/22 04:38: White Blood Count 7.7, Red Blood Count 3.85L, Hemoglobin 13.7, Hematocrit 40, Mean Corpuscular Volume 104H, Mean Corpuscular Hemoglobin 36H, Mean Corpuscular Hemoglobin Concent 34, Red Cell Distribution Width 14.7H, Platelet Count 118L, Mean Platelet Volume 10.9, Immature Granulocyte % (Auto) 0, Neutrophils (%) (Auto) 89H, Lymphocytes (%) (Auto) 4L, Monocytes (%) (Auto) 5, Eosinophils (%) (Auto) 1, Basophils (%) (Auto) 0, Neutrophils # (Auto) 6.9, Lymphocytes # (Auto) 0.3L, Monocytes # (Auto) 0.4, Eosinophils # (Auto) 0.1, Basophils # (Auto) 0.0, Immature Granulocyte # (Auto) 0.0, Neutrophils % (Manual) 89, Lymphocytes % (Manual) 2, Monocytes % (Manual) 3, Eosinophils % (Manual) 2, Band Neutrophils 3, Reactive Lymphocytes 1, Percent Immature Platelet Fraction 3.1, Macrocytosis MARKED, Sodium Level 134L, Potassium Level 3.7, Chloride Level 109H, Carbon Dioxide Level 16L, Anion Gap 9, Blood Urea Nitrogen 19H, Creatinine 1.03, Estimat Glomerular Filtration Rate 75, BUN/Creatinine Ratio 18, Glucose Level 1 10H, Calcium Level 8.1L, Corrected Calcium 9.1, Total Bilirubin 1.5H, Aspartate Amino Transf (AST/SGOT) 80H, Alanine Aminotransferase (ALT/SGPT) 49, Alkaline Phosphatase 123, Total Protein 6.6, Albumin 2.8L 10/16/22 10:22: Glucometer 153H 10/16/22 15:24: Glucometer 147H Microbiology 10/14/22 Urine Culture - Final, Complete NO GROWTH 10/14/22 Blood Culture - Preliminary, Resulted No growth A/P: Assessment: UTI - management per medical services Elevated troponin - chronically mildy elevated troponin since August 2021 Arrhythmogenic RVD - Status post successful direct-current cardioversion with 1 synchronized biphasic shock at 150 J with successful conversion of sustained unstable ventricular tachycardia to sinus rhythm on 05/19/21 - CARDIAC ELECTROPHYSIOLOGY REPORT (05/31/2021) by Dr. Forbes at [facility]: 1. Incessant slow ventricular tachycardia originating from the inflow region of the tricuspid valve on the free wall aspect of the right ventricle. 2. Multiple VT morphologies with different cycle length were induced after the ablation of the clinical ventricular tachycardia. The patient had to be cardioverted to normal sinus rhythm. - H/o VT for which he has ablation in June 2021 - H/O AICD implanted by Dr. Vaughan at [facility] (details unknown) - device interrogation of 04-06-22 showed device to be functioning normally - CARDIAC CATHETERIZATION (05/19/2021) by Dr. Farrar: Normal left heart pressures. Angiographically normal-appearing coronary arteries in a right do minant system. - Echo on 10/15/22: Severe conc LVH. LVEF 55-60%. Severely enlarged RV and RA. Mod to severe TR. Moderate PI. PASP 35-40 mmHg Carotid u/s 08/11/21: There is no grayscale or Doppler evidence of significant vascular stenosis CKD 3 DM 2 HTN HLD H/o neurogenic bladder H/o UTIs Plan: UTI- management per medical services Chronically mildly elevated troponin, probably related to marked RV enlargement. No evidence of ACS Monitor lab and maintain electrolyte and acid-base balance Clinical Quality Measures AMI/AHF: ASA po Prior to arrival: Yes (81 MG) LEXI STEVENSON MD FACP FAC CCDS Oct 16, 2022 16:32
[2022-10-16] MEDS: ACETAMINOPHEN 500 MG TABLET PO PRN (16:58)
[2022-10-16] MEDS: TAMSULOSIN 0.4 MG (FLOMAX) CAP PO SCH (16:58)
[2022-10-16] MEDS: TRIM/SULFAMETH 160/800 (SEPTRA DS) TAB PO SCH (16:59)
[2022-10-16] MEDS: ALLOPURINOL 100 MG TABLET PO SCH (20:29)
[2022-10-17] MEDS: ACETAMINOPHEN 500 MG TABLET PO PRN ×2 (04:01→13:57)
[2022-10-17 05:30] LABS: MEAN CORPUSCULAR VOLUME 103 fL (80-99)
[2022-10-17 05:31] LABS: BASOPHILS % (AUTO) 1 % (0-10); EOSINOPHILS # (AUTO) 0.2 10^3/uL (0.0-0.3); EOSINOPHILS % (AUTO) 4 % (0-10); HEMATOCRIT 39 % (40-54); HEMOGLOBIN 13.5 g/dL (13.3-17.7); LYMPHOCYTES # (AUTO) 0.5 10^3/uL (1.0-4.0); LYMPHOCYTES % (AUTO) 9 % (12-44); MEAN CORPUSCULAR HEMOGLOBIN 36 pg (25-34); MEAN CORPUSCULAR HGB CONC 35 g/dL (32-36); MEAN PLATELET VOLUME 10.5 fL (9.0-12.2); MONOCYTES # (AUTO) 0.4 10^3/uL (0.0-1.0); MONOCYTES % (AUTO) 7 % (0-12); NEUTROPHILS # (AUTO) 4.3 10^3/uL (1.8-7.8); NEUTROPHILS % (AUTO) 79 % (42-75); PLATELET COUNT 126 10^3/uL (130-400); WHITE BLOOD COUNT 5.4 10^3/uL (4.3-11.0)
[2022-10-17 05:45] LABS: ALBUMIN 2.8 GM/DL (3.2-4.5)
[2022-10-17 05:46] LABS: POTASSIUM 3.9 MMOL/L (3.6-5.0)
[2022-10-17 05:47] LABS: CALCIUM 8.4 MG/DL (8.5-10.1)
[2022-10-17 05:48] LABS: TOTAL PROTEIN 6.6 GM/DL (6.4-8.2)
[2022-10-17] MEDS: inSUlin ASPART 1 UNIT/0.01 ML (PER UNIT) SC SCH ×4 (05:49→20:33)
[2022-10-17 05:50] LABS: BILIRUBIN,TOTAL 1.1 MG/DL (0.1-1.0)
[2022-10-17 05:52] LABS: CREATININE SERUM 1.05 MG/DL (0.60-1.30)
[2022-10-17 08:04] VITALS: BP 128/80
[2022-10-17] MEDS: AMIODARONE 200 MG TABLET PO SCH (08:31)
[2022-10-17] MEDS: ENOXAPARIN 40 MG/0.4 ML SYRINGE SC SCH (08:31)
[2022-10-17] MEDS: TRIM/SULFAMETH 160/800 (SEPTRA DS) TAB PO SCH ×2 (08:31→18:00)
[2022-10-17] MEDS: ASPIRIN enteric coated 81MG TABLET PO SCH (08:31)
[2022-10-17] MEDS: FINASTERIDE 5 MG TABLET PO SCH (08:31)
--- NOTE | 2022-10-17 09:47 | Progress Note - Cardiology ---
Cardiology SOAP Progress Note Subjective: No c/o CP No c/o SOB or palpitations Continued gen weakness Objective: I&O/Vital Signs 10/17/22 10/18/22 10/18/22 23:08 03:04 07:53 Temp 36.0 36.3 36.2 Pulse 68 71 68 Resp 20 20 18 B/P (MAP) 101/57 (72) 132/75 (94) 115/68 (84) Pulse Ox 92 96 O2 Delivery Nasal Cannula Nasal Cannula Nasal Cannula O2 Flow Rate 3.00 3.00 2.50 10/18/22 00:00 Intake Total 1715 ml Output Total 1675 ml Balance 40 ml Weight (Pounds): 235 Weight (Calculated Kilograms): 106.453886 Constitutional: AAO x 3, well-developed, well-nourished Respiratory: No accessory muscle use, No respiratory distress; chest expansion is symmetric, chest is bilaterally symmetric, lungs clear to auscultation Cardiovascular: regular rate-rhythm; No JVD; S1 and S2 Gastrointestional: No tender; soft, audible bowel sounds Extremities: no lower extremity edema bilateral Neurologic/Psychiatric: other (moves extremities) Skin: No rash on exposed areas, No ulcerations on exposed areas Results/Procedures: Labs Laboratory Tests 10/17/22 10:39: Glucometer 130H 10/17/22 15:15: Glucometer 173H 10/17/22 20:06: Glucometer 136H 10/18/22 05:30: White Blood Count 4.7, Red Blood Count 3.91L, Hemoglobin 14.0, Hematocrit 40, Mean Corpuscular Volume 103H, Mean Corpuscular Hemoglobin 36H, Mean Corpuscular Hemoglobin Concent 35, Red Cell Distribution Width 14.4, Platelet Count 131, Mean Platelet Volume 9.7, Immature Granulocyte % (Auto) 0, Neutrophils (%) (Auto) 73, Lymphocytes (%) (Auto) 14, Monocytes (%) (Auto) 8, Eosinophils (%) (Auto) 4, Basophils (%) (Auto) 0, Neutrophils # (Auto) 3.5, Lymphocytes # (Auto) 0.7L, Monocytes # (Auto) 0.4, Eosinophils # (Auto) 0.2, Basophils # (Auto) 0.0, Immature Granulocyte # (Auto) 0.0, Sodium Level 134L, Potassium Level 3.8, Chloride Level 108H, Carbon Dioxide Level 21, Anion Gap 5, Blood Urea Nitrogen 17, Creatinine 1.09, Estimat Glomerular Filtration Rate 70, BUN/Creatinine Ratio 16, Glucose Level 92, Calcium Level 8.5, Corrected Calcium 9.4, Total Bilirubin 1.1H, Aspartate Amino Transf (AST/SGOT) 47H, Alanine Aminotransferase (ALT/SGPT) 43, Alkaline Phosphatase 158H, Total Protein 6.9, Albumin 2.9L Microbiology 10/14/22 Urine Culture - Final, Complete NO GROWTH 10/14/22 Blood Culture - Preliminary, Resulted No growth A/P: Assessment: UTI - management per medical services Elevated troponin - chronically mildy elevated troponin since August 2021 Arrhythmogenic RVD - Status post successful direct-current cardioversion with 1 synchronized biphasic shock at 150 J with successful conversion of sustained unstable ventricular tachycardia to sinus rhythm on 05/19/21 - CARDIAC ELECTROPHYSIOLOGY REPORT (05/31/2021) by Dr[facility]: 1. Incessant slow ventricular tachycardia originating from the inflow region of the tricuspid valve on the free wall aspect of the right ventricle. 2. Multiple VT morphologies with different cycle length were induced after the ablation of the clinical ventricular tachycardia. The patient had to be cardioverted to normal sinus rhythm. - H/o VT for which he has ablation in June 2021 - H/O AICD implanted by Dr. Vaughan at [facility] (details unknown) - device interrogation of 04-06-22 showed device to be functioning normally - CARDIAC CATHETERIZATION (05/19/2021) by Dr. Farrar: Normal left heart pressures. Angiographically normal-appearing coronary arteries in a right dominant system. - Echo on 10/15/22: Severe conc LVH. LVEF 55-60%. Severely enlarged RV and RA. Mod to severe TR. Moderate PI. PASP 35-40 mmHg Carotid u/s 08/11/21: There is no grayscale or Doppler evidence of significant vascular stenosis CKD 3 DM 2 HTN HLD H/o neurogenic bladder H/o UTIs Plan: UTI- management per medical services Chronically mildly elevated troponin, probably related to marked RV enlargement. No evidence of ACS Monitor lab and maintain electrolyte and acid-base balance Continue current medication regimen Clinical Quality Measures AMI/AHF: ASA po Prior to arrival: Yes (81 MG) SHARRON ESTEVEZ Oct 17, 2022 09:47
--- NOTE | 2022-10-17 10:09 | Occupational Ther Daily Note ---
OT Current Status-Daily Note Subjective SLEPT WELL AND ATE BREAKFAST, CONFUSED, AGREEABLE TO OT DOES NOT RECALL BEING HOSPITAL UNIT YESTERDAY Pain Numeric Pain Scale: 4 Location: Left Location Body Site: Hip Mental Status/Objective Attachments: IV CHAIR ALARM ADL-Treatment PATIENT REPORTS HE WOULD LIKE TO WALK IN THE HALLS, HOWEVER ALSO REPORTS HE CANNOT GET OUT OF BED BECAUSE HIS LEFT LEG HURTS. PATIENT IS UNSURE IF THE QUAD CANE IN HIS ROOM BELONGS TO HIM OR THE HOSPITAL. PATIENT INCONSISTENT IN COOPERATION LEVELS AND RAISES VOICE Therapy Code Descriptions/Definitions Functional Colver Measure: 0=Not Assessed/NA 4=Minimal Assistance 1=Total Assistance 5=Supervision or Setup 2=Maximal Assistance 6=Modified Col[place] 3=Moderate Assistance 7=Complete IndependenceSCALE: Activities may be completed with or without assistive devices. 3-Fbvbemgudb-pjqzcce completes the activity by him/herself with no assistance from a helper. 5-Set-up or Clean-up Assistance-helper sets up or cleans up; patient completes activity. [place] assists only prior to or following the activity. 4-Supervision or Touching Assistance-helper provides verbal cues and/or touching/steadying and/or contact guard assistance as patient completes activity. Assistance may be provided throughout the activity or intermittently. 3-Partial/Moderate Assistance-helper does LESS THAN HALF the effort. [place] lifts, holds or supports trunk or limbs, but provides less than half the effort. 2-Substantial/Maximal Assistance-helper does MORE THAN HALF the effort. [place] lifts or holds trunk or limbs and provides more than half the effort. 4-Elrrneubs-nilplr does ALL the effort. Patient does none of the effort to complete the activity. Or, the assistance of 2 or more helpers is required for the patient to complete the activity. If activity was not attempted, code reason: 7-Patient Refused. 9-Not Applicable-not attempted and the patient did not perform the activity before the current illness, exacerbation or injury. 10-Not Attempted due to Environmental Limitations-(lack of equipment, weather restraints, etc.). 88-Not Attempted due to Medical Conditions or Safety Concerns. Eating (QC): 6 Oral Hygiene (QC): 5 Shower/Bathe Self (QC): 7 Upper Body Dressing (QC): 4 Lower Body Dressing (QC): 3 On/Off Footwear: 3 Toileting Hygiene (QC): 3 Toilet Transfer (QC): 3 Education OT Patient Education: Correct positioning, Modified ADL techniques, Progress toward Goal/Update tx plan, Purpose of tx/functional activities, Reviewed precautions, Rehab process, Safety issues, Transfer techniques Teaching Recipient: Patient Teaching Methods: Demonstration, Discussion Response to Teaching: Reinforcement Needed OT Fpc Goals Regulatory Compliance Director Goals Oral Hygiene (QC): 6 Toileting Hygiene (QC): 6 (patient self cath) Shower/Bathe Self (QC): 6 Upper Body Dressing (QC): 6 Lower Body Dressing (QC): 6 On/Off Footwear (QC): 6 1=Demonstrate adherence to instructed precautions during ADL tasks. 2=Patient will verbalize/demonstrate understanding of assistive devices/modifications for ADL. 3=Patient will improve strength/tolerance for activity to enable patient to perform ADL's. OT Education/Plan Problem List/Assessment Assessment: Decreased Activ Tolerance, Decreased Safety Aware, Impaired Cognition, Impaired Coordination, Impaired Funct Balance, Impaired Self-Care Skills Discharge Recommendations Plan/Recommendations: Continue POC Treatment Plan/Plan of Care Treatment,Training & Education: Yes Patient would benefit from OT for education, treatment and training to promote independence in ADL's, mobility, safety and/or upper extremity function for ADL's. Plan of Care: ADL Retraining, Functional Mobility, Group Exercise/Act as Ind, UE Funct Exercise/Act Treatment Duration: Oct 19, 2022 Frequency: 3 times per week (3-5 times per week) Estimated Hrs Per Day: .25 hour per day Agreement: Yes Rehab Potential: Fair Time Start Time: 10:05 Stop Time: 10:22 DATE: Oct 17, 2022 Total Time Billed (hr/min): 17 Billed Treatment Time ADL 17 MIN PARESH EVANS OT Oct 17, 2022 10:09
[2022-10-17] MEDS ORDERED: SULF1TAB38 PO (10:52)
[2022-10-17 11:42] VITALS: BP 112/66
--- NOTE | 2022-10-17 12:29 | Progress Note - Cardiology ---
Cardiology SOAP Progress Note Subjective: No cp or palp or syncope No shortness of breath at rest No n/v/d Gen weakness, better No focal weakness Objective: I&O/Vital Signs 10/17/22 10/17/22 10/17/22 10/17/22 03:32 08:00 08:04 11:42 Temp 36.1 36.4 36.2 Pulse 74 70 68 Resp 20 16 16 B/P (MAP) 128/80 (96) 112/66 (81) Pulse Ox 97 94 92 O2 Delivery Nasal Cannula Nasal Cannula Nasal Cannula Room Air O2 Flow Rate 5.00 5.00 5.00 10/17/22 00:00 Intake Total 1160 ml Output Total 1450 ml Balance -290 ml Weight (Pounds): 235 Weight (Calculated Kilograms): 106.684712 Constitutional: AAO x 3, well-developed, well-nourished Respiratory: No accessory muscle use, No respiratory distress; chest expansion is symmetric, chest is bilaterally symmetric, lungs clear to auscultation Cardiovascular: regular rate-rhythm; No JVD; S1 and S2 Gastrointestional: No tender; soft, audible bowel sounds Extremities: no lower extremity edema bilateral Neurologic/Psychiatric: other (moves extremities) Skin: No rash on exposed areas, No ulcerations on exposed areas Results/Procedures: Labs Laboratory Tests 10/16/22 15:24: Glucometer 147H 10/16/22 20:19: Glucometer 167H 10/17/22 05:22: White Blood Count 5.4, Red Blood Count 3.77L, Hemoglobin 13.5, Hematocrit 39L, Mean Corpuscular Volume 103H, Mean Corpuscular Hemoglobin 36H, Mean Corpuscular Hemoglobin Concent 35, Red Cell Distribution Width 14.4, Platelet Count 126L, Mean Platelet Volume 10.5, Immature Granulocyte % (Auto) 0, Neutrophils (%) (Auto) 79H, Lymphocytes (%) (Auto) 9L, Monocytes (%) (Auto) 7, Eosinophils (%) (Auto) 4, Basophils (%) (Auto) 1, Neutrophils # (Auto) 4.3, Lymphocytes # (Auto) 0.5L, Monocytes # (Auto) 0.4, Eosinophils # (Auto) 0.2, Basophils # (Auto) 0.0, Immature Granulocyte # (Auto) 0.0, Percent Immature Platelet Fraction 2.7, Sodium Level 134L, Potassium Level 3.9, Chloride Level 109H, Carbon Dioxide Level 19L, Anion Gap 6, Blood Urea Nitrogen 19H, Creatinine 1.05, Estimat Glomerular Filtration Rate 74, BUN/Creatinine Ratio 18, Glucose Level 109H, Calcium Level 8.4L, Corrected Calcium 9.4, Total Bilirubin 1.1H, Aspartate Amino Transf (AST/SGOT) 57H, Alanine Aminotransferase (ALT/SGPT) 45, Alkaline Phosphatase 126, Total Protein 6.6, Albumin 2.8L 10/17/22 10:39: Glucometer 130H Microbiology 10/14/22 Urine Culture - Final, Complete NO GROWTH 10/14/22 Blood Culture - Preliminary, Resulted No growth Laboratory Tests 10/16/22 04:38 10/17/22 05:22 A/P: Assessment: UTI - management per medical services Elevated troponin - chronically mildy elevated troponin since August 2021 Arrhythmogenic RVD - Status post successful direct-current cardioversion with 1 synchronized biphasic shock at 150 J with successful conversion of sustained unstable ventricular tachycardia to sinus rhythm on 05/19/21 - CARDIAC ELECTROPHYSIOLOGY REPORT (05/31/2021) by Dr. Forbes at [facility]: 1. Incessant slow ventricular tachycardia originating from the inflow region of the tricuspid valve on the free wall aspect of the right ventricle. 2. Multiple VT morphologies with different cycle length were induced after the ablation of the clinical ventricular tachycardia. The patient had to be cardioverted to normal sinus rhythm. - H/o VT for which he has ablation in June 2021 - H/O AICD implanted by Dr. Vaughan at [facility] (details unknown) - device interrogation of 04-06-22 showed device to be functioning normally - CARDIAC CATHETERIZATION (05/19/2021) by Dr. Farrar: Normal left heart pressures. Angiographically normal-appearing coronary arteries in a right dominant system. - Echo on 10/15/22: Severe conc LVH. LVEF 55-60%. Severely enlarged RV and RA. Mod to severe TR. Moderate PI. PASP 35-40 mmHg Carotid u/s 08/11/21: There is no grayscale or Doppler evidence of significant vascular stenosis CKD 3 DM 2 HTN HLD H/o neurogenic bladder H/o UTIs Plan: UTI- management per medical services Chronically mildly elevated troponin, probably related to marked RV enlargement. No evidence of ACS Monitor lab and maintain electrolyte and acid-base balance Continue current medication regimen Clinical Quality Measures AMI/AHF: ASA po Prior to arrival: Yes (81 MG) LEXI STEVENSON MD FACP [facility] CCDS Oct 17, 2022 12:29
[2022-10-17] MEDS ORDERED: IOHEXOL 350 MG/ML 100 ML (OMNIPAQUE 350) VIAL IV ONE (14:00)
[2022-10-17] MEDS ORDERED: HOLD METFORMIN - RECEIVED CONTRAST 20 ML VIAL IV SCH (14:00)
[2022-10-17] MEDS ORDERED: NS 100 ML (IVPB) BAG IV ONE (14:00)
--- NOTE | 2022-10-17 14:01 | Progress Note - Hospitalist ---
Subjective HPI/CC On Admission Date Seen by Provider: Oct 17, 2022 Time Seen by Provider: 10:50 Truman Thomas is a 77 year old male with PMH HTN, T2DM, HLD, CH'F, BPH, who presented with weakness. He has had difficulty ambulating. He denies fevers. He is shaking upon my exam. He has been self cathing twice daily for the past coup le weeks. He has a history of BPH and was told he needed surgery but was later determined to not be a suitable surgical candidate. He denies chest pain. He denies shortness of breath. He denies abdominal pain, nausea, and vomiting. Subjective/Events-last exam He is feeling better. He is sitting in his chair. He has not worked with therapy yet. He denies shortness of breath though he is still requiring oxygen. Focused Exam Lactate Level 10/14/22 18:51: Lactic Acid Level 1.39 10/15/22 11:20: Lactic Acid Level 1.94 Objective Exam Vital Signs Vital Signs Date Time Temp Pulse Resp B/P (MAP) Pulse Ox O2 Delivery O2 Flow Rate FiO2 10/17/22 11:42 36.2 68 16 112/66 (81) 92 Room Air 10/17/22 08:04 5.00 Capillary Refill : Less Than 3 Seconds General Appearance: No Apparent Distress, Obese Respiratory: Lungs Clear, No Respiratory Distress Cardiovascular: Regular Rate, Rhythm, No Murmur Gastrointestinal: Normal Bowel Sounds, Soft Extremity: Normal Inspection, No Pedal Edema Neurologic/Psychiatric: Alert, Normal Mood/Affect Results/Procedures Lab Laboratory Tests 10/17/22 05:22 Patient resulted labs reviewed. Imaging: Reviewed Imaging Report Assessment/Plan Assessment and Plan Assess & Plan/Chief Complaint Sepsis due to UTI NEVAEH BPH UA concerning for UTI Urine culture with no growth Blood cultures with no growth Continue Bactrim Continue mendez catheter due to retention Elevated troponin Mildly elevated No chest pain Cardiology following Acute respiratory failure with hypoxia Pulmonary HTN Asymptomatic Requiring supplemental oxygen Echo with elevated right sided pressures CT chest ordered Debility PT/OT IRU evaluation T2DM Sliding scale insulin HTN HLD CHF Continue home meds as able DVT prophylaxis: Lovenox Diagnosis/Problems Diagnosis/Problems (1) Sepsis due to urinary tract infection Status: Acute (2) NEVAEH (acute kidney injury) Status: Acute (3) Benign prostatic hyperplasia Status: Acute Qualifiers: Lower urinary tract symptom presence: symptoms present Lower urinary tract symptom detail: urinary retention Qualified Codes: N40.1 - Benign prostatic hyperplasia with lower urinary tract symptoms; R33.8 - Other retention of urine (4) Urinary retention due to benign prostatic hyperplasia Status: Acute (5) Debility Status: Acute (6) Acute respiratory failure with hypoxia Status: Acute (7) Pulmonary hypertension Status: Acute Clinical Quality Measures AMI/AHF: ASA po Prior to arrival: Yes (81 MG) MEKHI GIFFORD MD Oct 17, 2022 14:01
[2022-10-17 15:13] VITALS: BP 121/74
--- NOTE | 2022-10-17 15:33 | Diagnostic Imaging Report ---
INDICATION: Elevated troponin as well as respiratory failure. TECHNIQUE: After intravenous administration of contrast, thin section axial CT angiography of the chest was performed. 3D MIP reconstructions were made. All CT scans use one or more of the following dose optimizing techniques: Automated exposure control, MA and/or KvP adjustment based on a patient size and exam type, or iterative reconstruction. COMPARISON: No prior studies are available for comparison. FINDINGS: The heart is markedly enlarged. Trace pericardial fluid is noted. There are also trace bilateral pleural effusions. Evaluation of the pulmonary arterial system is without evidence of thromboembolism. No definite filling defects are seen within the central, lobar, or segmental branches. Thoracic aorta is normal in caliber. There is no dissection. Cardiac pacemaker is in place. No pulmonary infiltrates are seen. There appears to be some dependent atelectasis in both bases. Upper abdomen is unremarkable. IMPRESSION: 1. Cardiomegaly. 2. No evidence of pulmonary embolism or acute aortic disease. 3. Trace pericardial fluid and bilateral effusions with bibasilar infiltrates or atelectasis. Dictated by: Dictated on workstation # [id number]
[2022-10-17] MEDS: TAMSULOSIN 0.4 MG (FLOMAX) CAP PO SCH (18:00)
[2022-10-17 19:27] VITALS: BP 111/69
[2022-10-17] MEDS: ALLOPURINOL 100 MG TABLET PO SCH (20:33)
[2022-10-17 23:08] VITALS: BP 101/57
[2022-10-18 03:04] VITALS: BP 132/75
[2022-10-18 05:38] LABS: BASOPHILS % (AUTO) 0 % (0-10); EOSINOPHILS # (AUTO) 0.2 10^3/uL (0.0-0.3); EOSINOPHILS % (AUTO) 4 % (0-10); HEMATOCRIT 40 % (40-54); LYMPHOCYTES # (AUTO) 0.7 10^3/uL (1.0-4.0); LYMPHOCYTES % (AUTO) 14 % (12-44); MEAN CORPUSCULAR HEMOGLOBIN 36 pg (25-34); MEAN CORPUSCULAR HGB CONC 35 g/dL (32-36); MEAN CORPUSCULAR VOLUME 103 fL (80-99); MEAN PLATELET VOLUME 9.7 fL (9.0-12.2); MONOCYTES # (AUTO) 0.4 10^3/uL (0.0-1.0); MONOCYTES % (AUTO) 8 % (0-12); NEUTROPHILS # (AUTO) 3.5 10^3/uL (1.8-7.8); NEUTROPHILS % (AUTO) 73 % (42-75); PLATELET COUNT 131 10^3/uL (130-400); WHITE BLOOD COUNT 4.7 10^3/uL (4.3-11.0)
[2022-10-18 05:51] LABS: ALBUMIN 2.9 GM/DL (3.2-4.5)
[2022-10-18 05:52] LABS: POTASSIUM 3.8 MMOL/L (3.6-5.0)
[2022-10-18 05:53] LABS: CALCIUM 8.5 MG/DL (8.5-10.1)
[2022-10-18 05:54] LABS: TOTAL PROTEIN 6.9 GM/DL (6.4-8.2)
[2022-10-18] MEDS: inSUlin ASPART 1 UNIT/0.01 ML (PER UNIT) SC SCH ×2 (05:55→10:40)
[2022-10-18 05:56] LABS: BILIRUBIN,TOTAL 1.1 MG/DL (0.1-1.0)
[2022-10-18 05:58] LABS: CREATININE SERUM 1.09 MG/DL (0.60-1.30)
[2022-10-18 07:53] VITALS: BP 115/68
[2022-10-18] MEDS: FINASTERIDE 5 MG TABLET PO SCH (08:15)
[2022-10-18] MEDS: ASPIRIN enteric coated 81MG TABLET PO SCH (08:15)
[2022-10-18] MEDS: TRIM/SULFAMETH 160/800 (SEPTRA DS) TAB PO SCH (08:15)
[2022-10-18] MEDS: ENOXAPARIN 40 MG/0.4 ML SYRINGE SC SCH (08:15)
[2022-10-18] MEDS: AMIODARONE 200 MG TABLET PO SCH (08:15)
[2022-10-18] MEDS: ACETAMINOPHEN 500 MG TABLET PO PRN (08:15)
--- NOTE | 2022-10-18 08:22 | Physical Therapy Daily Note ---
PT Daily Note-Current Subjective Late Entry; Tx performed on 10/17/22 Patient sitting in chair upon PT arrival, SO in room as well. Patient reports no pain at this time. SO reports "Hes in pain, he just doesn't tell anyone." She also states, "He thinks he can do things but he just can't and thats why he has fallen so much." Pain Section J - Health Conditions 1. Rarely or not at all 2. Occasionally 3. Frequently 4. Almost constantly 8. Unable to answer Pain Effect on Sleep: 1 Pain Interference with Therapy: 1 Pain Interference w/Day-to-Day: 1 Mental Status Patient Orientation: Person Transfers SCALE: Activities may be completed with or without assistive devices. 2-Opfqcmaesm-ehrafzq completes the activity by him/herself with no assistance from a helper. 5-Set-up or Clean-up Assistance-helper sets up or cleans up; patient completes activity. [place] assists only prior to or following the activity. 4-Supervision or Touching Assistance-helper provides verbal cues and/or touching/steadying and/or contact guard assistance as patient completes activity. Assistance may be provided throughout the activity or intermittently. 3-Partial/Moderate Assistance-helper does LESS THAN HALF the effort. [place] lifts, holds or supports trunk or limbs, but provides less than half the effort. 2-Substantial/Maximal Assistance-helper does MORE THAN HALF the effort. [place] lifts or holds trunk or limbs and provides more than half the effort. 3-Qhbohpamf-jjdmzz does ALL the effort. Patient does none of the effort to complete the activity. Or, the assistance of 2 or more helpers is required for the patient to complete the activity. If activity was not attempted, code reason: 7-Patient Refused. 9-Not Applicable-not attempted and the patient did not perform the activity before the current illness, exacerbation or injury. 10-Not Attempted due to Environmental Limitations-(lack of equipment, weather restraints, etc.). 88-Not Attempted due to Medical Conditions or Safety Concerns. Sit to Stand (QC): 4 Chair/Jpl-fm-Rtgjo Xfer(QC): 4 Gait Training Does the Patient Walk?: Yes Distance: 150' Walk 10 feet (QC): 4 Walk 50 ft with 2 Turns(QC): 3 Walk 150 ft (QC): 3 Gait Assistive Device: FWW Assessment Current Status: Fair Progress Patient tolerated treatment fair. He demonstrates SBA for all observed transfers. Patient ambulates 150' with FWW, with min a and verbal cues for safety, progression, posture and balance. Patient loses balance while turning left out of the room and requires minimal A from PT to avoid falling. Patient in the chair post treatment with all needs met, nursing notified, call light in hand and chair alarm activated. rice farmworker contacted in regards to SO's concerns about patient returning home too soon. SO reports she has to leave to go home and take care of animals, however was given social workers card to contact her when she was able to. PT Detention Goals Machine Striper Goals PT Detention Goals Time Frame: Nov 03, 2022 Roll Left & Right (QC): 4 Sit to Lying (QC): 4 Lying-Sitting on Side/Bed(QC): 4 Sit to Stand (QC): 4 Chair/Mdm-qy-Hujcp Xfer(QC): 4 Walk 10 feet (QC): 4 Walk 50ft with 2 Turns (QC): 4 Walk 150 ft (QC): 4 PT Plan Treatment/Plan Treatment Plan: Continue Plan of Care Treatment Plan: Bed Mobility, Education, Functional Activity Mallika, Functional Strength, Gait, Safety, Therapeutic Exercise, Transfers Treatment Duration: Nov 03, 2022 Frequency: 5 times per week Estimated Hrs Per Day: .25 hour per day Safety Risks/Education Patient Education: Gait Training, Transfer Techniques Teaching Recipient: Patient Teaching Methods: Demonstration, Discussion Response to Teaching: Reinforcement Needed Time Time In: 1307 Time Out: 1320 DATE: Oct 17, 2022 Total Billed Treatment Time: 13 Total Billed Treatment Visit, PARTH CASTILLO PT Oct 18, 2022 08:22
[2022-10-18 11:13] VITALS: BP 112/70
--- NOTE | 2022-10-18 11:19 | Occupational Ther Daily Note ---
OT Current Status-Daily Note Subjective Preferred name UNIQUE, request to ambulate today, cane in room, will need FWW Mental Status/Objective Patient Orientation: Person, Confused (w/ names and timelines), Place Attachments: Duong Catheter ADL-Treatment Dons socks EOB w/ CGA d/t right lean and posterior LOB in sitting, Patent regains w/ use of GB on bed. Patient reports he does not wear socks at home and Leia his girlfriend callis when needed Therapy Code Descriptions/Definitions Functional Blair Measure: 0=Not Assessed/NA 4=Minimal Assistance 1=Total Assistance 5=Supervision or Setup 2=Maximal Assistance 6=Modified [place] 3=Moderate Assistance 7=Complete IndependenceSCALE: Activities may be completed with or without assistive devices. 5-Rufacpvyhu-dzwcogx completes the activity by him/herself with no assistance from a helper. 5-Set-up or Clean-up Assistance-helper sets up or cleans up; patient completes activity. [place] assists only prior to or following the activity. 4-Supervision or Touching Assistance-helper provides verbal cues and/or touching/steadying and/or contact guard assistance as patient completes activity. Assistance may be provided throughout the activity or intermittently. 3-Partial/Moderate Assistance-helper does LESS THAN HALF the effort. [place] lifts, holds or supports trunk or limbs, but provides less than half the effort. 2-Substantial/Maximal Assistance-helper does MORE THAN HALF the effort. [place] lifts or holds trunk or limbs and provides more than half the effort. 3-Kwcxqfrwd-ogkiyk does ALL the effort. Patient does none of the effort to complete the activity. Or, the assistance of 2 or more helpers is required for the patient to complete the activity. If activity was not attempted, code reason: 7-Patient Refused. 9-Not Applicable-not attempted and the patient did not perform the activity before the current illness, exacerbation or injury. 10-Not Attempted due to Environmental Limitations-(lack of equipment, weather restraints, etc.). 88-Not Attempted due to Medical Conditions or Safety Concerns. Eating (QC): 6 Oral Hygiene (QC): 4 (next step VCs, CGA in standing) Shower/Bathe Self (QC): 7 Upper Body Dressing (QC): 4 Lower Body Dressing (QC): 4 On/Off Footwear: 4 Toileting Hygiene (QC): 3 Toilet Transfer (QC): 4 Following ambulation patient transferred to recliner w/ chair alarm, requires physical guidance for position of FWW and turning to sit in recliner Education OT Patient Education: Correct positioning, Exercise program, Modified ADL techniques, Progress toward Goal/Update tx plan, Purpose of tx/functional activities, Reviewed precautions, Rehab process, Safety issues, Transfer techniques, Use of adapted equipment Teaching Recipient: Patient Teaching Methods: Demonstration, Discussion Response to Teaching: Verbalize Understanding, Reinforcement Needed OT Shaper Set Up Operator Goals Shaper Set Up Operator Goals Oral Hygiene (QC): 6 Toileting Hygiene (QC): 6 (patient self cath) Shower/Bathe Self (QC): 6 Upper Body Dressing (QC): 6 Lower Body Dressing (QC): 6 On/Off Footwear (QC): 6 1=Demonstrate adherence to instructed precautions during ADL tasks. 2=Patient will verbalize/demonstrate understanding of assistive devices/modifications for ADL. 3=Patient will improve strength/tolerance for activity to enable patient to perform ADL's. OT Education/Plan Problem List/Assessment Assessment: Decreased Activ Tolerance, Decreased Safety Aware, Decreased UE Strength, Impaired Cognition, Impaired Coordination, Impaired Funct Balance, Impaired Self-Care Skills Discharge Recommendations Plan/Recommendations: Continue POC Treatment Plan/Plan of Care Treatment,Training & Education: Yes Patient would benefit from OT for education, treatment and training to promote independence in ADL's, mobility, safety and/or upper extremity function for ADL's. Plan of Care: ADL Retraining, Functional Mobility, Group Exercise/Act as Ind, UE Funct Exercise/Act Treatment Duration: Oct 19, 2022 Frequency: 3 times per week (3-5 times per week) Estimated Hrs Per Day: .25 hour per day Agreement: Yes Rehab Potential: Fair Time Start Time: 09:45 Stop Time: 10:08 DATE: Oct 18, 2022 Total Time Billed (hr/min): 18 Billed Treatment Time ADL 18 min PARESH EVANS OT Oct 18, 2022 11:19
--- NOTE | 2022-10-18 11:45 | Progress Note - Cardiology ---
Cardiology SOAP Progress Note Subjective: Lying in bed No new c/o Continued c/o gen weakness Objective: I&O/Vital Signs 10/18/22 10/18/22 10/18/22 10/18/22 03:04 07:53 08:00 11:13 Temp 36.3 36.2 36.0 Pulse 71 68 67 Resp 20 18 18 B/P (MAP) 132/75 (94) 115/68 (84) 112/70 (84) Pulse Ox 96 96 95 O2 Delivery Nasal Cannula Nasal Cannula Nasal Cannula Nasal Cannula O2 Flow Rate 3.00 2.50 2.50 2.50 10/18/22 00:00 Intake Total 1715 ml Output Total 1675 ml Balance 40 ml Weight (Pounds): 235 Weight (Calculated Kilograms): 106.767521 Constitutional: AAO x 3, well-developed, well-nourished Respiratory: No accessory muscle use, No respiratory distress; chest expansion is symmetric, chest is bilaterally symmetric, lungs clear to auscultation Cardiovascular: regular rate-rhythm; No JVD; S1 and S2 Gastrointestional: No tender; soft, audible bowel sounds Extremities: no lower extremity edema bilateral Neurologic/Psychiatric: other (moves extremities) Skin: No rash on exposed areas, No ulcerations on exposed areas Results/Procedures: Labs Laboratory Tests 10/17/22 15:15: Glucometer 173H 10/17/22 20:06: Glucometer 136H 10/18/22 05:30: White Blood Count 4.7, Red Blood Count 3.91L, Hemoglobin 14.0, Hematocrit 40, Mean Corpuscular Volume 103H, Mean Corpuscular Hemoglobin 36H, Mean Corpuscular Hemoglobin Concent 35, Red Cell Distribution Width 14.4, Platelet Count 131, Mean Platelet Volume 9.7, Immature Granulocyte % (Auto) 0, Neutrophils (%) (Auto) 73, Lymphocytes (%) (Auto) 14, Monocytes (%) (Auto) 8, Eosinophils (%) (Auto) 4, Basophils (%) (Auto) 0, Neutrophils # (Auto) 3.5, Lymphocytes # (Auto) 0.7L, Monocytes # (Auto) 0.4, Eosinophils # (Auto) 0.2, Basophils # (Auto) 0.0, Immature Granulocyte # (Auto) 0.0, Sodium Level 134L, Potassium Level 3.8, Chloride Level 108H, Carbon Dioxide Level 21, Anion Gap 5, Blood Urea Nitrogen 17, Creatinine 1.09, Estimat Glomerular Filtration Rate 70, BUN/Creatinine Ratio 16, Glucose Level 92, Calcium Level 8.5, Corrected Calcium 9.4, Total Bilirubin 1.1H, Aspartate Amino Transf (AST/SGOT) 47H, Alanine Aminotransferase (ALT/SGPT) 43, Alkaline Phosphatase 158H, Total Protein 6.9, Albumin 2.9L 10/18/22 10:35: Glucometer 108 Microbiology 10/14/22 Urine Culture - Final, Complete NO GROWTH 10/14/22 Blood Culture - Preliminary, Resulted No growth Laboratory Tests 10/17/22 05:22 10/18/22 05:30 Procedures NAME: VIPIN ASHTON REC#: [id number] PT STATUS: ADM IN : 1945 PHYSICIAN: MEKHI GIFFORD MD ADMIT DATE: 10/14/22 Signed Date of Exam:10/17/22 CT ANGIO CHEST W (R/O PE) INDICATION: Elevated troponin as well as respiratory failure. TECHNIQUE: After intravenous administration of contrast, thin section axial CT angiography of the chest was performed. 3D MIP reconstructions were made. All CT scans use one or more of the following dose optimizing techniques: Automated exposure control, MA and/or KvP adjustment based on a patient size and exam type, or iterative reconstruction. COMPARISON: No prior studies are available for comparison. FINDINGS: The heart is markedly enlarged. Trace pericardial fluid is noted. There are also trace bilateral pleural effusions. Evaluation of the pulmonary arterial system is without evidence of thromboembolism. No definite filling defects are seen within the central, lobar, or segmental branches. Thoracic aorta is normal in caliber. There is no dissection. Cardiac pacemaker is in place. No pulmonary infiltrates are seen. There appears to be some dependent atelectasis in both bases. Upper abdomen is unremarkable. IMPRESSION: 1. Cardiomegaly. 2. No evidence of pulmonary embolism or acute aortic disease. 3. Trace pericardial fluid and bilateral effusions with bibasilar infiltrates or atelectasis. Dictated by: Dictated on workstation # [id number] Dict: 10/17/22 1515 Trans: 10/17/22 1609 [id number] Interpreted by: SHREYA ÁLVAREZ MD Electronically signed by: SHREYA ÁLVAREZ MD 10/17/22 6129 A/P: Assessment: UTI - management per medical services Elevated troponin - chronically mildy elevated troponin since August 2021 Arrhythmogenic RVD - Status post successful direct-current cardioversion with 1 synchronized biphasic shock at 150 J with successful conversion of sustained unstable ventricular tachycardia to sinus rhythm on 05/19/21 - CARDIAC ELECTROPHYSIOLOGY REPORT (05/31/2021) by Dr. Forbes at [facility]: 1. Incessant slow ventricular tachycardia originating from the inflow region of the tricuspid valve on the free wall aspect of the right ventricle. 2. Multiple VT morphologies with different cycle length were induced after the abla tion of the clinical ventricular tachycardia. The patient had to be cardioverted to normal sinus rhythm. - H/o VT for which he has ablation in June 2021 - H/O AICD implanted by Dr. Vaughan at [facility] (details unknown) - device interrogation of 04-06-22 showed device to be functioning normally - CARDIAC CATHETERIZATION (05/19/2021) by Dr. Farrar: Normal left heart pressures. Angiographically normal-appearing coronary arteries in a right dominant system. - Echo on 10/15/22: Severe conc LVH. LVEF 55-60%. Severely enlarged RV and RA. Mod to severe TR. Moderate PI. PASP 35-40 mmHg Carotid u/s 08/11/21: There is no grayscale or Doppler evidence of significant vascular stenosis CKD 3 DM 2 HTN HLD H/o neurogenic bladder H/o UTIs Plan: UTI- management per medical services Chronically mildly elevated troponin, probably related to marked RV enlargement. No evidence of ACS Monitor lab and maintain electrolyte and acid-base balance Continue current medication regimen Plan is for transfer to IRU per medical services Clinical Quality Measures AMI/AHF: ASA po Prior to arrival: Yes (81 MG) SHARRON ESTEVEZ Oct 18, 2022 11:45
--- NOTE | 2022-10-18 11:47 | Physical Therapy Daily Note ---
PT Daily Note-Current Subjective Patient is very agreeable to participate with therapy. Pain Section J - Health Conditions 1. Rarely or not at all 2. Occasionally 3. Frequently 4. Almost constantly 8. Unable to answer Pain Effect on Sleep: 1 Pain Interference with Therapy: 1 Pain Interference w/Day-to-Day: 1 Transfers SCALE: Activities may be completed with or without assistive devices. 0-Bezsdlrhwp-kbsqhoe completes the activity by him/herself with no assistance from a helper. 5-Set-up or Clean-up Assistance-helper sets up or cleans up; patient completes activity. Isabel assists only prior to or following the activity. 4-Supervision or Touching Assistance-helper provides verbal cues and/or touching/steadying and/or contact guard assistance as patient completes activity. Assistance may be provided throughout the activity or intermittently. 3-Partial/Moderate Assistance-helper does LESS THAN HALF the effort. Isabel lifts, holds or supports trunk or limbs, but provides less than half the effort. 2-Substantial/Maximal Assistance-helper does MORE THAN HALF the effort. Isabel lifts or holds trunk or limbs and provides more than half the effort. 6-Ykvrjtzen-nrrxgj does ALL the effort. Patient does none of the effort to complete the activity. Or, the assistance of 2 or more helpers is required for the patient to complete the activity. If activity was not attempted, code reason: 7-Patient Refused. 9-Not Applicable-not attempted and the patient did not perform the activity b efore the current illness, exacerbation or injury. 10-Not Attempted due to Environmental Limitations-(lack of equipment, weather restraints, etc.). 88-Not Attempted due to Medical Conditions or Safety Concerns. Lying to Sitting/Side of Bed(Q: 4 Sit to Stand (QC): 4 Chair/Qsh-ey-Lrchs Xfer(QC): 4 Gait Training Distance: 350' Walk 10 feet (QC): 4 Walk 50 ft with 2 Turns(QC): 4 Walk 150 ft (QC): 4 Gait Assistive Device: FWW functional gait sequence with no deviation Assessment Patient up in recliner with needs met. Much improved on this date. 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 [facility] Goals PT [facility] Goals Time Frame: Nov 03, 2022 Roll Left & Right (QC): 4 Sit to Lying (QC): 4 Lying-Sitting on Side/Bed(QC): 4 Sit to Stand (QC): 4 Chair/Iwb-ed-Pqoez Xfer(QC): 4 Walk 10 feet (QC): 4 Walk 50ft with 2 Turns (QC): 4 Walk 150 ft (QC): 4 PT Plan Treatment/Plan Treatment Plan: Continue Plan of Care Treatment Plan: Bed Mobility, Education, Functional Activity Mallika, Functional Strength, Gait, Safety, Therapeutic Exercise, Transfers Treatment Duration: Nov 03, 2022 Frequency: 5 times per week Estimated Hrs Per Day: .25 hour per day Time Time In: 950 Time Out: 1005 DATE: Oct 18, 2022 Total Billed Treatment Time: 15 Total Billed Treatment 1 visit GT 15 min MATT MUNGUIA PT Oct 18, 2022 11:47
--- NOTE | 2022-10-18 11:57 | Progress Note - Cardiology ---
Cardiology SOAP Progress Note Subjective: No cp or palp or syncope Gen weakness and malaise are improving No n/v/d No focal weakness Objective: I&O/Vital Signs 10/18/22 10/18/22 10/18/22 10/18/22 03:04 07:53 08:00 11:13 Temp 36.3 36.2 36.0 Pulse 71 68 67 Resp 20 18 18 B/P (MAP) 132/75 (94) 115/68 (84) 112/70 (84) Pulse Ox 96 96 95 O2 Delivery Nasal Cannula Nasal Cannula Nasal Cannula Nasal Cannula O2 Flow Rate 3.00 2.50 2.50 2.50 10/18/22 00:00 Intake Total 1715 ml Output Total 1675 ml Balance 40 ml Weight (Pounds): 235 Weight (Calculated Kilograms): 106.102385 Constitutional: AAO x 3, well-developed, well-nourished Respiratory: No accessory muscle use, No respiratory distress; chest expansion is symmetric, chest is bilaterally symmetric, lungs clear to auscultation Cardiovascular: regular rate-rhythm; No JVD; S1 and S2 Gastrointestional: No tender; soft, audible bowel sounds Extremities: no lower extremity edema bilateral Neurologic/Psychiatric: other (moves extremities) Skin: No rash on exposed areas, No ulcerations on exposed areas Results/Procedures: Labs Laboratory Tests 10/17/22 15:15: Glucometer 173H 10/17/22 20:06: Glucometer 136H 10/18/22 05:30: White Blood Count 4.7, Red Blood Count 3.91L, Hemoglobin 14.0, Hematocrit 40, Mean Corpuscular Volume 103H, Mean Corpuscular Hemoglobin 36H, Mean Corpuscular Hemoglobin Concent 35, Red Cell Distribution Width 14.4, Platelet Count 131, Mean Platelet Volume 9.7, Immature Granulocyte % (Auto) 0, Neutrophils (%) (Auto) 73, Lymphocytes (%) (Auto) 14, Monocytes (%) (Auto) 8, Eosinophils (%) (Auto) 4, Basophils (%) (Auto) 0, Neutrophils # (Auto) 3.5, Lymphocytes # (Auto) 0.7L, Monocytes # (Auto) 0.4, Eosinophils # (Auto) 0.2, Basophils # (Auto) 0.0, Immature Granulocyte # (Auto) 0.0, Sodium Level 134L, Potassium Level 3.8, Chloride Level 108H, Carbon Dioxide Level 21, Anion Gap 5, Blood Urea Nitrogen 17, Creatinine 1.09, Estimat Glomerular Filtration Rate 70, BUN/Creatinine Ratio 16, Glucose Level 92, Calcium Level 8.5, Corrected Calcium 9.4, Total Bilirubin 1.1H, Aspartate Amino Transf (AST/SGOT) 47H, Alanine Aminotransferase (ALT/SGPT) 43, Alkaline Phosphatase 158H, Total Protein 6.9, Albumin 2.9L 10/18/22 10:35: Glucometer 108 Microbiology 10/14/22 Urine Culture - Final, Complete NO GROWTH 10/14/22 Blood Culture - Preliminary, Resulted No growth Laboratory Tests 10/17/22 05:22 10/18/22 05:30 A/P: Assessment: UTI - management per medical services Chronically mildy elevated troponin since August 2021 (probably due to arrhythmogenic RVD with marked right heart dilatation) Arrhythmogenic RVD - Status post successful direct-current cardioversion with 1 synchronized biphasic shock at 150 J with successful conversion of sustained unstable ventricular tachycardia to sinus rhythm on 05/19/21 - CARDIAC ELECTROPHYSIOLOGY REPORT (05/31/2021) by Dr[facility]: 1. Incessant slow ventricular tachycardia originating from the inflow region of the tricuspid valve on the free wall aspect of the right ventricle. 2. Multiple VT morphologies with different cycle length were induced after the ablation of the clinical ventricular tachycardia. The patient had to be cardioverted to normal sinus rhythm. - H/o VT for which he has ablation in June 2021 - H/O AICD implanted by Dr. Vaughan at [facility] (details unknown) - device interrogation of 04-06-22 showed device to be functioning normally - CARDIAC CATHETERIZATION (05/19/2021) by Dr. Farrar: Normal left heart pressures. Angiographically normal-appearing coronary arteries in a right dominant system. - Echo on 10/15/22: Severe conc LVH. LVEF 55-60%. Severely enlarged RV and RA. Mod to severe TR. Moderate PI. PASP 35-40 mmHg Carotid u/s 08/11/21: There is no grayscale or Doppler evidence of significant vascular stenosis CKD 3 DM 2 HTN HLD H/o neurogenic bladder H/o UTIs Plan: UTI- management per Medical services Chronically mildly elevated troponin, probably related to marked RV enlargement. No evidence of ACS Monitor lab and maintain electrolyte and acid-base balance Continue current medication regimen Outpt f/u would be with his regular float remover Clinical Quality Measures AMI/AHF: ASA po Prior to arrival: Yes (81 MG) LEXI STEVENSON MD FACP [facility] Oct 18, 2022 11:57
[2022-10-18 13:50] VITALS: BP 112/70
--- NOTE | 2022-10-18 16:49 | Discharge Summary ---
Discharge Summary Hospital Course Problems/Dx: (1) Sepsis due to urinary tract infection Status: Acute (2) NEVAEH (acute kidney injury) Status: Acute (3) Benign prostatic hyperplasia Status: Acute Qualifiers: Qualified Codes: N40.1 - Benign prostatic hyperplasia with lower urinary tract symptoms; R33.8 - Other retention of urine (4) Urinary retention due to benign prostatic hyperplasia Status: Acute (5) Debility Status: Acute (6) Acute respiratory failure with hypoxia Status: Acute (7) Pulmonary hypertension Status: Acute Hospital Course Date of Admission: Oct 14, 2022 at 22:50 Admission Diagnosis : Sepsis due to UTI Family Physician/Provider: Antonia Larson Physician Date of Discharge: 10/18/22 Discharge Diagnosis: Sepsis due to UTI Hospital Course: Truman Thomas is a 77 year old male who was admitted with sepsis due to UTI. He was treated with IV fluids and antibiotics. His urine culture had no growth but there was high suspicion for UTI. He was transitioned to Bactrim to complete his course of antibiotics. He has BPH with urinary retention. He has been straight cathing twice daily for the past couple weeks. A mendez catheter was placed. He followed with urology in the past and he says they recommended surgery but he was not able to receive medical clearance for the surgery. He also had an NEVAEH which resolved with fluids. He had a mildy elevated troponin which appears to be chronic. Cardiology was consulted and assisted with his care. He had an echo which showed normal EF, concentric hypertrophy, severe RV dilitation, and pulmonary hypertension. He also had acute respiratory failure with hypoxia. He had a CT which was unrevealing for a cause of his hypoxia. He was set up with home oxygen 3 L continuously and 5 L with exertion. He should follow up with his PCP at the [facility] in about a week. He should follow up with Urology in a few weeks. He should follow up with Cardiology as scheduled. He was discharged home in stable condition. He was offered home health but declined. He was set up with a walker. Labs and Pending Lab Test: Laboratory Tests 10/17/22 20:06: Glucometer 136H 10/18/22 05:30: White Blood Count 4.7, Red Blood Count 3.91L, Hemoglobin 14.0, Hematocrit 40, Mean Corpuscular Volume 103H, Mean Corpuscular Hemoglobin 36H, Mean Corpuscular Hemoglobin Concent 35, Red Cell Distribution Width 14.4, Platelet Count 131, Mean Platelet Volume 9.7, Immature Granulocyte % (Auto) 0, Neutrophils (%) (Auto) 73, Lymphocytes (%) (Auto) 14, Monocytes (%) (Auto) 8, Eosinophils (%) (Auto) 4, Basophils (%) (Auto) 0, Neutrophils # (Auto) 3.5, Lymphocytes # (Auto) 0.7L, Monocytes # (Auto) 0.4, Eosinophils # (Auto) 0.2, Basophils # (Auto) 0.0, Immature Granulocyte # (Auto) 0.0, Sodium Level 134L, Potassium Level 3.8, Chloride Level 108H, Carbon Dioxide Level 21, Anion Gap 5, Blood Urea Nitrogen 17, Creatinine 1.09, Estimat Glomerular Filtration Rate 70, BUN/Creatinine Ratio 16, Glucose Level 92, Calcium Level 8.5, Corrected Calcium 9.4, Total Bilirubin 1.1H, Aspartate Amino Transf (AST/SGOT) 47H, Alanine Aminotransferase (ALT/SGPT) 43, Alkaline Phosphatase 158H, Total Protein 6.9, Albumin 2.9L 10/18/22 10:35: Glucometer 108 Microbiology 10/14/22 Urine Culture - Final, Complete NO GROWTH 10/14/22 Blood Culture - Preliminary, Resulted No growth Home Meds Active Bactrim Ds Tablet (Sulfamethoxazole/Trimethoprim) 1 Each Tablet 1 Ea PO BID WITH MEALS 7 Days Reported Nitrofurantoin [place]-Mcr 100 mg (Nitrofurantoin Monohyd/M-Cryst) 100 Mg Capsule 100 Mg PO 1200 Metamucil Packet (Psyllium Husk (with Sugar)) 3.4 Gram Powd.pack 3.4 Gm PO DAILY PRN Vitamin D3 (Cholecalciferol (Vitamin D3)) 10 Mcg (400 Unit) Capsule 10 Mcg PO DAILY Cranberry (Cranberry Extract) 500 Mg Tablet 500 Mg PO DAILY Potassium Chloride 20 Meq Tablet.er 20 Meq PO DAILY PRN Preservision Areds 2 Softgel (Vit C/E/Zn/Coppr/Lutein/Zeaxan) 250MG-90MG Capsule 1 Each PO BID Jardiance (Empagliflozin) 25 Mg Tablet 12.5 Mg PO DAILY TAKES OF A 25MG TAB Docusate Sodium 100 Mg Capsule 100 Mg PO 1600 Amiodarone HCl 200 Mg Tablet 200 Mg PO DAILY Furosemide 40 Mg Tablet 40 Mg PO DAILY PRN TAKE NEEDED FOR WEIGHT GAIN OF 3LB OVERNIGHT OR 5LB IN 1 WEEK, SWELLING OR INCREASED SHORTNESS OF AIR Miralax (Polyethylene Glycol 3350) 17 Gram Powd.pack 17 Gm PO DAILY PRN Metoprolol Tartrate 50 Mg Tablet 25 Mg PO 0800,1600 TAKES OF A 50MG TAB Finasteride 5 Mg Tablet 5 Mg PO 1600 Aspirin EC (Aspirin) 81 Mg Tablet.dr 81 Mg PO DAILY Atorvastatin Calcium 80 Mg Tablet 40 Mg PO HS TAKES OF A 80MG TAB Multivitamins with Minerals (Multivitamin with Minerals) 1 Each Tablet 1 Each PO DAILY Allopurinol 100 Mg Tablet 100 Mg PO HS Ventolin Hfa (Albuterol Sulfate) 1 Puff Puff 2 Puff IH QID PRN Tylenol Extra Strength (Acetaminophen) 500 Mg Tablet 1,000 Mg PO Q8H PRN Vitamin C (Ascorbate Calcium) 500 Mg Tablet 500 Mg PO DAILY Assessment/Pt Instructions See instructions Discharge Planning: >30 minutes discharge planning Discharge Instructions Discharge Diet: No Restrictions Activity as Tolerated: Yes Discharge Physical Examination Vital Signs Vital Signs Date Time Temp Pulse Resp B/P (MAP) Pulse Ox O2 Delivery O2 Flow Rate FiO2 10/18/22 13:50 36.0 67 18 112/70 95 Nasal Cannula 2.50 General Appearance: No Apparent Distress, WD/WN Respiratory: Lungs Clear, No Respiratory Distress Cardiovascular: Regular Rate, Rhythm, No Murmur Gastrointestinal: Normal Bowel Sounds, Soft Extremity: Normal Inspection, No Pedal Edema Neurologic/Psychiatric: Alert, Normal Mood/Affect Allergies: Uncoded Allergies: UNKNOWN CHOLESTEROL MED. (Allergy, Unknown, UNKNOWN STATES CAN'T REMEMBER MEDIATION NOR SIDE EFFECT, 07/10/21) Discharge Summary Date of Admission Oct 14, 2022 at 22:50 Date of Discharge Oct 18, 2022 at 13:50 Discharge Date: Oct 18, 2022 Discharge Time: 13:50 Admission Diagnosis Sepsis due to UTI Discharge Diagnosis Sepsis due to UTI NEVAEH BPH Elevated troponin Acute respiratory failure with hypoxia Pulmonary HTN Debility T2DM HTN HLD CHF (1) Sepsis due to urinary tract infection Status: Acute (2) NEVAEH (acute kidney injury) Status: Acute (3) Benign prostatic hyperplasia Status: Acute Qualifiers: Qualified Codes: N40.1 - Benign prostatic hyperplasia with lower urinary tract symptoms; R33.8 - Other retention of urine (4) Urinary retention due to benign prostatic hyperplasia Status: Acute (5) Debility Status: Acute (6) Acute respiratory failure with hypoxia Status: Acute (7) Pulmonary hypertension Status: Acute Clinical Quality Measures AMI/AHF: ASA po Prior to arrival: Yes (81 MG) MEKHI GIFFORD MD Oct 18, 2022 16:45
== END 2022-10-18 13:50 | disposition home or self-care (01) | DRG 871 ==
LOC: EDUNIT# 18:27 → ER 18:29 → CSD 22:50 → 4TH 10-16 14:37
PROVIDERS: ADMIT Family Medicine; ATTEND Internal Medicine
DX: A41.9 Sepsis, unspecified organism (principal); J96.01 Acute respiratory failure with hypoxia; N39.0 Urinary tract infection, site not specified; N17.9 Acute kidney failure, unspecified; I47.20 Ventricular tachycardia, unspecified; I13.0 Hypertensive heart and chronic kidney disease with heart failure and stage 1 through stage 4 chronic kidney disease, or unspecified chronic kidney disease; I42.9 Cardiomyopathy, unspecified; G91.9 Hydrocephalus, unspecified; N40.1 Benign prostatic hyperplasia with lower urinary tract symptoms; Z20.822 Contact with and (suspected) exposure to COVID-19; R33.8 Other retention of urine; N31.9 Neuromuscular dysfunction of bladder, unspecified; E11.22 Type 2 diabetes mellitus with diabetic chronic kidney disease; N18.30 Chronic kidney disease, stage 3 unspecified; I50.9 Heart failure, unspecified; G80.9 Cerebral palsy, unspecified; J44.9 Chronic obstructive pulmonary disease, unspecified; E78.5 Hyperlipidemia, unspecified; R77.8 Other specified abnormalities of plasma proteins; M10.9 Gout, unspecified; M19.90 Unspecified osteoarthritis, unspecified site; Z87.891 Personal history of nicotine dependence; Z79.899 Other long term (current) drug therapy; Z79.82 Long term (current) use of aspirin; Z79.84 Long term (current) use of oral hypoglycemic drugs
CPT/HCPCS: 36415; 71045; 71275; 80053; 80061; 80306; 80320; 81000; 82140; 82550; 82553; 82805; 82947; 83605; 83690; 83735; 83874; 83880; 84443; 84484; 85007; 85025; 85027; 85379; 85610; 85652; 85730; 86141; 87040; 87088; 87636; 93005; 93041; 93306; 94640; 94760; 94761

== ENCOUNTER 2022-12-04 19:00 | Emergency (ER) | payer OTHER ==
[~2022-12-04] VITALS: Ht 181 cm; Wt 88.6 kg
[~2022-12-04 19:00] MED LIST changes: +NITR100C10 PO; +PSYL1PAC10 PO; +SULF1TAB38 PO
--- NOTE | 2022-12-04 19:13 | ED Fall/Injury ---
General Stated Complaint: FALL Source: patient Exam Limitations: no limitations History of Present Illness Date Seen by Provider: Dec 04, 2022 Time Seen by Provider: 19:09 Initial Comments Patient is a 77-year-old male who presents ED by EMS for evaluation from a fall. Patient fell 1 hour ago. Was discharged from [facility] today was going inside his house hit a lip and fell down hitting his knees, left forearm against the concrete. Patient did not hit his head or loss of conscious. Not on blood thinners. Typically ambulates with a walker or cane. Was discharged from [facility] secondary to hematuria and had irrigation of his bladder. Denies of any blood in his urine. He has no chest pain, shortness of breath, abdominal pain vomiting, headache, dizziness, middle lower back pain. Does have abrasions bilateral knee and left forearm. He is able to move all extremities. Was not able to bear weight. History of COPD currently on 4 L oxygen chronically. Denies cough, visual changes, nausea, vomit, diarrhea. Allergies and Home Medications Allergies Uncoded Allergies: UNKNOWN CHOLESTEROL MED. (Allergy, Unknown, UNKNOWN STATES CAN'T REMEMBER MEDIATION NOR SIDE EFFECT, 07/10/21) Patient Home Medication List Home Medication List Reviewed: Yes Acetaminophen (Tylenol Extra Strength) 500 Mg Tablet, 1,000 MG PO Q8H PRN for PAIN-MILD (1-4) OR TEMPATURE, (Reported) Entered as Reported by: GIO CARLOS on 05/19/211547 Albuterol Sulfate (Ventolin Hfa) 1 Puff Puff, 2 PUFF IH QID PRN for SHORTNESS OF BREATH, (Reported) Entered as Reported by: GIO CARLOS on 05/19/21 154 Allopurinol (Allopurinol) 100 Mg Tablet, 100 MG PO HS, (Reported) Entered as Reported by: GIO CARLOS on 05/19/21 154 Amiodarone HCl (Amiodarone HCl) 200 Mg Tablet, 200 MG PO DAILY, (Reported) Entered as Reported by: GIO CARLOS on 06/08/22 1138 Ascorbate Calcium (Vitamin C) 500 Mg Tablet, 500 MG PO DAILY, (Reported) Entered as Reported by: GIO CARLOS on 05/19/21 154 Aspirin (Aspirin EC) 81 Mg Tablet.dr, 81 MG PO DAILY, (Reported) Entered as Reported by: GIO CARLOS on 08/11/21 1541 Atorvastatin Calcium (Atorvastatin Calcium) 80 Mg Tablet, 40 MG PO HS, (Reported) Entered as Reported by: GIO CARLOS on 06/09/21 1435 Cephalexin (Cephalexin) 500 Mg Tablet, 500 MG PO TID Prescribed by: JASON MONET on 11/28/222015 Cholecalciferol (Vitamin D3) (Vitamin D3) 10 Mcg (400 Unit) Capsule, 10 MCG PO DAILY, (Reported) Entered as Reported by: GIO CARLOS on 08/29/22 1333 Cranberry Extract (Cranberry) 500 Mg Tablet, 500 MG PO DAILY, (Reported) Entered as Reported by: GIO CARLOS on 08/29/22 1333 Docusate Sodium (Docusate Sodium) 100 Mg Capsule, 100 MG PO 1600, (Reported) Entered as Reported by: GIO CARLOS on 06/08/22 1138 Empagliflozin (Jardiance) 25 Mg Tablet, 12.5 MG PO DAILY, (Reported) Entered as Reported by: GIO CARLOS on 06/08/22 1138 Finasteride (Finasteride) 5 Mg Tablet, 5 MG PO 1600, (Reported) Entered as Reported by: GIO CARLOS on 08/11/21 154 Furosemide (Furosemide) 40 Mg Tablet, 40 MG PO DAILY PRN for FLUID RETENTION, (Reported) Entered as Reported by: GIO CARLOS on 08/11/21 1549 Metoprolol Tartrate (Metoprolol Tartrate) 50 Mg Tablet, 25 MG PO 0800,1600, (Reported) Entered as Reported by: GIO CARLOS on 08/11/21 1541 Multivitamin with Minerals (Multivitamins with Minerals) 1 Each Tablet, 1 EACH PO DAILY, (Reported) Entered as Reported by: GIO CARLOS on 05/19/21 1549 Nitrofurantoin Monohyd/M-Cryst (Nitrofurantoin Brantley-Mcr 100 mg) 100 Mg Capsule, 100 MG PO 1200, (Reported) Entered as Reported by: GIO CARLOS on 10/15/22 1442 Polyethylene Glycol 3350 (Miralax) 17 Gram Powd.pack, 17 GM PO DAILY PRN for CONSTIPATION-2ND LINE, (Reported) Entered as Reported by: GIO CARLOS on 08/11/21 1541 Potassium Chloride (Potassium Chloride) 20 Meq Tablet.er, 20 MEQ PO DAILY PRN for WHEN TAKING FUROSEMIDE, (Reported) Entered as Reported by: GIO CARLOS on 06/08/22 1138 Psyllium Husk (with Sugar) (Metamucil Packet) 3.4 Gram Powd.pack, 3.4 GM PO DAILY PRN for CONSTIPATION, (Reported) Entered as Reported by: GIO CARLOS on 10/15/22 1442 Sulfamethoxazole/Trimethoprim (Bactrim Ds Tablet) 1 Each Tablet, 1 EA PO BID WITH MEALS Prescribed by: MEKHI GIFFORD on 10/17/22 1052 Vit C/E/Zn/Coppr/Lutein/Zeaxan (Preservision Areds 2 Softgel) 250MG-90MG Capsule, 1 EACH PO BID, (Reported) Entered as Reported by: GIO CARLOS on 06/08/22 1138 Review of Systems Review of Systems Constitutional: No chills, No diaphoresis, No malaise, No weakness Eyes: Denies Drainage, Denies Decreased Acuity Ears, Nose, Mouth, Throat: denies ear discharge Respiratory: No cough, No dyspnea on exertion Cardiovascular: No chest pain, No edema Gastrointestinal: No abdominal pain, No diarrhea, No nausea, No vomiting Genitourinary: No decreased output Musculoskeletal: back pain, joint pain, joint swelling, muscle pain Skin: change in color Psychiatric/Neurological: Denies Anxiety, Denies Depressed All Other Systems Reviewed Negative Unless Noted: Yes Past [place]-Dfvhnx-Liiyqy Hx Immunizations Up To Date First/Initial COVID19 Vaccinat: YES Second COVID19 Vaccination Eugenio: YES Third COVID19 Vaccination Date: YES Past Medical History Surgery/Hospitalization HX: HEART FAILURE DIABETIC GOUT UROLOGY "ISSUES"- neurogenic bladder- chronic cath- since oct, prior did self cath x 1 year. Surgeries: Yes (PACEMAKER/DEF, ANAL FISTULA, ) Defibrillator, Orthopedic, Pacemaker, Rectal Respiratory: Yes COPD Cardiac: Yes (CARDIOMYOPATHY, AVRD; V-TACH) Cardiomyopathy, Chronic Edema/Swelling, High Cholesterol, Hypertension, I rregular Heartbeat Neurological: Yes (HYDROCEPHALUS, POOR BALANCE) Cerebral Palsy Genitourinary: Yes (SELF CATHS) Benign Prostatic Hyperpl, Kidney Infection, Prostate Problems, Bladder Infection, UTI-Chronic Gastrointestinal: Yes Chronic Constipation Musculoskeletal: Yes (POOR BALANCE) Arthritis, Gout Endocrine: Yes Diabetes, Non-Insulin dep HEENT: No Cancer: No Psychosocial: No Integumentary: No Blood Disorders: No Family Medical History No Pertinent Family Hx Physical Exam Vital Signs Vital Signs - First Documented 12/04/22 19:00 Temp 37.0 Pulse 65 Resp 16 B/P (MAP) 116/75 (89) Pulse Ox 97 O2 Delivery Nasal Cannula O2 Flow Rate 3.00 Capillary Refill : Height, Weight, BMI Height: 6'1.00" Weight: 235lbs. oz. [id number]; 39.00 BMI Method:Stated General Appearance: WD/WN, no apparent distress HEENT: PERRL/EOMI, normal ENT inspection, pharynx normal Neck: non-tender, full range of motion Cardiovascular: regular rate, rhythm, no edema, no gallop, no JVD Respiratory: chest non-tender, lungs clear, normal breath sounds Gastrointestinal: normal bowel sounds, non tender, soft, no organomegaly Back: normal inspection, no CVA tenderness, no vertebral tenderness Extremities: other (Swelling and bruising bilateral knees. Normal active range of motion. No laxity with valgus or varus stress. Negative anterior posterior drawer test. Abrasion to left mid forearm. No tenderness. Normal active range of motion of the left wrist left elbow. Neurovascular intact. 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, no motor/sensory deficits, alert, normal mood/affect Skin: other (Bilateral knee abrasions and swelling, left forearm abrasion.) [place] Coma Score Best Eye Response: (4) Open Spontaneously Best Verbal Response: (5) Oriented Best Motor Response: (6) Obeys Commands Adrianna Total: 15 Progress/Results/Core Measures Results/Orders My Orders Orders - MILAGROS DAO PA Forearm, Left, 2 Views (12/04/22 19:07) Knee, 3 Views, Bilateral (12/04/22 19:07) Chest 1 View, Ap/Pa Only (12/04/22 19:07) Ketorolac Injection (Ketorolac Injection (12/04/22 20:00) Medications Given in ED Current Medications Medications Dose Ordered Sig/Susan Route Start Time Stop Time Status Last Admin Dose Admin Ketorolac Tromethamine 30 mg ONCE ONCE IVP 12/04/22 20:00 12/04/22 20:01 DC 12/04/22 20:03 30 MG Vital Signs/I&O 12/04/22 12/04/22 19:00 20:13 Temp 37.0 37.0 Pulse 65 57 Resp 16 16 B/P (MAP) 116/75 (89) 114/74 Pulse Ox 97 95 O2 Delivery Nasal Cannula Nasal Cannula O2 Flow Rate 3.00 3.00 3.00 Departure Communication (PCP) Patient presents ED by EMS for a mechanical fall. Was discharged from [facility] secondary to hematuria was admitted for few days with irrigation of his bladder. Has been seen here for similar similar symptoms. Patient states he was going into his house he tripped on a small ledge hitting his knees and left forearm on the concrete. Denies hitting his head or loss of consciousness. Chronically wears 4 L of oxygen. Patient alert and orient x4. GCS of 15. Currently on 4 L 95% on room air. Denies any chest pain, abdominal pain, vomiting, headache, dizziness, neck pain, middle lower back pain. Does have swelling and bruising bilateral knees and abrasions to left forearm. He states he is up-to-date on his tetanus within the past 5 years. Received Tylenol. X- ray of the left forearm, bilateral knees were negative for acute fractures. Discussed these results with patient. He is able to move his extremities. He is able to bear weight. Does need a walker for stability. Patient is ready to be discharged. His vital signs remained stable. Patient will be discharged back to his home. Continue ice and anti-inflammatories. Follow-up with orthopedic in 7 to 10 days if pain progress. If any worsening symptoms return back to ED. patient is able to ambulate with assistance. Patient is wanting to go home. He is alert and orient x4. GCS of 15. Patient feels safe at home. Patient is a caregiver does not want to take care of patient at home which is his ex-. Discussed long-term with patient. Patient is refusing and is wanting to go home. Impression Primary Impression: Bilateral knee pain Additional Impression: Forearm abrasion Disposition: 01 HOME, SELF-CARE Condition: Stable Departure-Patient Inst. Decision time for Depature: 19:42 Referrals: [facility] NO,LOCAL PHYSICIAN (PCP) Primary Care Physician BE RAMSEY MD Patient Instructions: Knee Pain (DC) Add. Discharge Instructions: Recommend ice, anti-inflammatories rest. Orthopedic follow-up in 7 to 10 days for reevaluation. Continue use her walker. MILAGROS DAO Dec 04, 2022 19:13
--- NOTE | 2022-12-04 19:38 | Diagnostic Imaging Report ---
FOREARM, LEFT, 2 VIEWS INDICATION: Left forearm pain COMPARISON: None available. TECHNIQUE: 2 views of the left forearm FINDINGS: Previous ORIF of healed distal radial and ulnar shaft fractures. These fractures have healed in near anatomic alignment. No hardware complication. No acute fracture is noted. No unintended radiopaque foreign body. IMPRESSION: 1. No acute osseous abnormality in the left forearm. 2. Old healed radial and ulnar shaft fractures post ORIF. Dictated by: Dictated on workstation # [id number]
--- NOTE | 2022-12-04 19:38 | Diagnostic Imaging Report ---
CHEST 1 VIEW, AP/PA ONLY Indication: Trauma Comparison: 10/15/2022 Findings: Unchanged marked enlargement of cardiac silhouette with left pectoral transvenous pacemaker. No pleural effusion or pneumothorax. Visible lungs are clear. Impression: 1. No acute cardiopulmonary process by portable radiography. Dictated by: Dictated on workstation # [id number]
--- NOTE | 2022-12-04 19:39 | Diagnostic Imaging Report ---
KNEE, 3 VIEWS, BILATERAL INDICATION: Bilateral knee pain COMPARISON: None available. TECHNIQUE: 3 views of each knee for a total of 6 views FINDINGS: No knee joint effusion on either side. There is no acute fracture or traumatic malalignment involving either knee. There is a partially imaged intramedullary nail within the left tibia. Joint spaces are fairly well-preserved on both sides. IMPRESSION: 1. No acute osseous abnormality about either knee. Dictated by: Dictated on workstation # [id number]
[2022-12-04] MEDS ORDERED: KETOROLAC INJ 30 MG/ML VIAL IVP ONE (20:00)
[2022-12-04 20:13] VITALS: BP 114/74
== END 2022-12-04 20:54 | disposition home or self-care (01) ==
LOC: EDUNIT# 19:00 → ER 19:01
DX: S80.02XA Contusion of left knee, initial encounter (principal); S80.01XA Contusion of right knee, initial encounter; J44.9 Chronic obstructive pulmonary disease, unspecified; Z99.81 Dependence on supplemental oxygen; W18.30XA Fall on same level, unspecified, initial encounter; W22.8XXA Striking against or struck by other objects, initial encounter
CPT/HCPCS: 71045; 73090